=== PATIENT | female | born 1945 | race Caucasian/White ===

== ENCOUNTER → 2016-07-02 | Outpatient (CLI) | payer MEDICARE ==
[2016-05-04 11:00] VITALS: BP 128/62
[~2016-07-02] MED LIST: ACET500T68 PO; ALBU8.5H6 IH; ALPR1TAB2 PO; AMLO5TAB4 PO; ASPI325T4 PO; CA C1TAB62 PO; CITA10TA8 PO; DULO60CA6 PO; FLUT10.6 IH; FURO20TA3 PO; HYDR-2666 PO; HYDR-965 PO; IPRA3AMP IH; LEVO500T38 PO; LISI1TAB3 PO; PRED20TA PO; TIZA4CAP3 PO; TRAM50TA PO; TRAZ50TA15 PO
--- NOTE | 2016-07-02 21:24 | PAIN ---
DATE OF SERVICE: 07/02/2016 DIAGNOSES: Lumbar radiculopathy with lumbar degenerative disk disease and degenerative disk disease and lumbar spondylosis. HISTORY OF PRESENT ILLNESS: The patient is a 70-year-old female who returns for followup status post lumbar epidural steroid injections, most recently in January 2016. The patient managed with medication management as well with tramadol and Zanaflex, which she reports she is still doing very well with this, reports that she does have some pain in the back, but is much less than previously. The patient reports about 70-75% improvement overall. Initially was 90% after last injection, but is doing very well with her medication regimen, has been very stable with no side effects. The patient reports her pain at 2 on a scale of 10. It is worst is a dull ache in the low back into the bilateral lower extremities, more on the right than the left, but only worse with standing and walking and is still able to relieve this with sitting, this has been difficult for her in the past. Sitting now does relieve the pain. The patient reports she would like to wait on any further injections to where the pain might be worst and feels that she ____ from them. Again, the patient taking tramadol and Zanaflex, has had appropriate K-TRACS reporting today and appropriate urinalysis today. We will obtain urinalysis today as well as random screening time for her as well. The patient reports no new motor or sensory deficits, no new bowel or bladder incontinence or other complaints. PHYSICAL EXAMINATION: VITAL SIGNS: Today, the patient's blood pressure ____, pulse 88, respirations 18, temperature 98.1 degrees Fahrenheit, height is 63 inches. GENERAL: The patient is awake, alert, oriented, appropriate, very pleasant demeanor. HEENT: Head shows normocephalic, atraumatic. Extraocular movements are intact and symmetrical. Oral cavity, mucous membranes are moist and pink. Dentition is intact. NECK: Shows anterior throat supple without palpable lymphadenopathy noted. Swallow reflex is symmetrical. CHEST: Shows normal on inspection. Breath sounds are coarse and distant, but clear to auscultation bilaterally. The patient is wearing oxygen by 2 liters nasal cannula. HEART: Shows S1 and S2 clear. ABDOMEN: Soft, nontender, nondistended. No palpable organomegaly noted. No rebound or guarding demonstrated. BACK: Shows spine grossly midline, slight exaggeration in the thoracic kyphosis, but normal lumbar lordotic curvature. Lumbar paraspinous muscle shows some very mild tenderness to palpation, but only diffusely in the upper, middle and lower distribution of paraspinous muscles without significant atrophy, hypertrophy or radiation of pain. EXTREMITIES: The patient's lower extremities showed deep tendon reflexes 1+ in the patellar and tendo calcaneus tendons. Motor exam is strong with dorsiflexion and extension rated at 5/5 and equal. Options were discussed with the patient. At this time, the patient's old chart was reviewed as her current medication regimen updated. Current review of systems updated today as well. We will hold on further injections. We will refill the patient's tramadol 50 mg as well as Zanaflex at 4 mg with instructions, side effects to be aware have discussed the patient also. Again, we will have the urinalysis taken today as random screening. We will have the patient follow up in approximately 4 weeks or sooner for potential lumbar epidural steroid injection in the future as necessary. The patient was given instruction as well as side effects to be aware of with the medication and will follow up as scheduled. VICENTA CID MD DR: ALOK/marni JOB#: [id number] / [id number]
== END | disposition home or self-care (01) ==
LOC: PNCL 08:40
PROVIDERS: ATTEND Anesthesiology
DX: M51.16 Intervertebral disc disorders with radiculopathy, lumbar region (principal); M51.36 Other intervertebral disc degeneration, lumbar region; M47.896 Other spondylosis, lumbar region
CPT/HCPCS: G0463

== ENCOUNTER 2016-08-11 15:02 | Inpatient (IN) | payer MEDICARE ==
[~2016-08-11] VITALS: Ht 162.6 cm; Wt 45.5 kg
[2016-08-11] VITALS (9 sets, daily range): BP systolic 136–166; BP diastolic 74–98
[2016-08-11 15:26] LABS: BASO % 0 % (0-3); EOS % 3 % (0-3); HEMATOCRIT 30.7 % (36.0-47.0); HEMOGLOBIN 9.3 g/dL (12.0-15.5); LYMPH # 0.8 x10^3/uL (1.0-4.8); LYMPH % 14 % (24-48); MEAN CORPUSCULAR HEMOGLOBIN 30 pg (25-35); MEAN CORPUSCULAR HGB CONC 30 g/dL (31-37); MEAN CORPUSCULAR VOLUME 97 fL (79-100); MONO % 8 % (0-9); NEUT % 75 % (31-73); PLATELET COUNT 127 x10^3/uL (140-400); RED BLOOD COUNT 3.16 x10^6/uL (3.50-5.40); RED CELL DISTRIBUTION WIDTH 15.4 % (11.5-14.5); WHITE BLOOD COUNT 5.5 x10^3/uL (4.0-11.0)
--- NOTE | 2016-08-11 15:35 | RAD ---
AP portable chest radiograph 08/11/2016 Clinical History: Shortness of breath. An AP portable erect digital radiograph of the chest was obtained. Comparison study is dated 07/03/2016. The cardiac silhouette is normal in size. Atherosclerotic calcification of the thoracic aorta is seen. The thoracic aorta is mildly tortuous. Emphysematous changes are seen bilaterally. No acute pulmonary infiltrate is noted. No pneumothorax or pleural effusion is seen. The osseous structures are unchanged. Impression: No acute abnormality is seen.
[2016-08-11 15:41] LABS: CALCIUM 9.1 mg/dL (8.5-10.1); CREATININE 1.5 mg/dL (0.6-1.0); GFR 34.5; POTASSIUM 4.6 mmol/L (3.5-5.1)
[2016-08-11] MEDS ORDERED: methylPREDNISolone SOD SUCC PF 125 MG/2 ML VIAL. IV ONE (16:00)
[2016-08-11] MEDS ORDERED: IPRATRPIUM/ALBUTEROL 0.5/2.5MG 3 ML NEBU. NEB ONE (16:00)
[2016-08-11 16:05] LABS: OBC FLU VALID
[2016-08-11] MEDS ORDERED: FENTANYL PF 100 MCG/2 ML VIAL. ONE (16:22)
[2016-08-11] MEDS ORDERED: FENTANYL PF 100 MCG/2 ML VIAL. IV ONE (16:30)
[2016-08-11 16:31] LABS: BASE EXCESS COOX -3 mmol/L (-3-3); CARBON MONOXIDE 0.9 % (0.0-1.9); HCO3 COOX 24 mmol/L (21-28); METHEMOGLOBIN 0.3 % (0.0-1.9); OXYHEMOGLOBIN 88.4 %; PCO2 COOX 53 mmHg (35-46); PH COOX 7.27 (7.35-7.45); PO2 COOX 57 mmHg (65-108); SAT O2 COOX 90 % (92-99)
--- NOTE | 2016-08-11 16:36 | PHYS DOC ---
Past Medical History Past Medical History: Anxiety, COPD, Depression, Hypertension, Renal Disease Additional Past Medical Histor: back pain Past Surgical History: Hysterectomy Additional Past Surgical Histo: UNKNOWN Alcohol Use: None Drug Use: None Adult General Chief Complaint Chief Complaint: DYSPNEA/RESPIRATOY DISTRESS HPI HPI Patient is a 70 year old female who presents by EMS for dyspnea and left hip pain. She has not been wearing oxygen today and was feeling lightheaded. She had a fall without loss of consciousness and was not breathing well. EMS was called by family, who found her on the ground at home with no NC in place. She was very hypoxemic and altered. This did not improve with NC, so CPAP was placed. She had improvement in O2 sats and mentation with this. Left hip pain started after fall; achy, constant, worse with movement. She denies chest pain , cough, palpitation, LOC, headache, vision changes, back pain, numbness, tingling, weakness. Review of Systems Review of Systems Constitutional: Denies fever or chills [] Eyes: Denies change in visual acuity, redness, or eye pain [] HENT: Denies nasal congestion or sore throat [] Respiratory: Denies cough [] Cardiovascular: No additional information not addressed in HPI [] GI: Denies abdominal pain, nausea, vomiting, bloody stools or diarrhea [] : Denies dysuria or hematuria [] Musculoskeletal: Denies back pain [] Integument: Denies rash or skin lesions [] Neurologic: Denies headache, focal weakness or sensory changes [] Endocrine: Denies polyuria or polydipsia [] Current Medications Current Medications Current Medications Medications (Trade) Dose Ordered Sig/Chrissie Start Time Stop Time Status Last Admin Dose Admin Albuterol/ Ipratropium (Duoneb) 3 ml PRN Q4HRS PRN 08/11/16 17:30 Fentanyl Citrate (Fentanyl 2ml Vial) 100 mcg STK-MED ONCE 08/11/16 16:22 08/11/16 16:23 DC Methylprednisolone Sodium Succinate (Solu-Medrol 125mg Vial) 125 mg 1X ONCE 08/11/16 16:00 08/11/16 16:01 DC 08/11/16 16:07 125 MG Allergies Allergies Allergies Coded Allergies Type Severity Reaction Last Updated Verified amlodipine Adverse Reaction Intermediate Swelling 05/04/16 Yes Physical Exam Physical Exam Constitutional: Well developed, well nourished, no acute distress, non-toxic appearance. [] HENT: Normocephalic, atraumatic, bilateral external ears normal, oropharynx moist, no oral exudates, nose normal. [] Eyes: PERRLA, EOMI. [] Neck: Normal range of motion, no tenderness, supple, no stridor. [] Cardiovascular:Heart rate regular rhythm [] Lungs & Thorax: Diminished bilateral breath sounds; no wheezing or crackles [] Abdomen: Bowel sounds normal, soft, no tenderness. [] Skin: Warm, dry, no erythema, no rash. [] Back: No tenderness, no CVA tenderness. [] Extremities: LLE with no obvious deformity or discoloration; Tenderness about left lateral hip with no palpable or visual abnormality; Hip ROM not tested due to pain, knee rom not tested due to hip pain, ankle df/pf intact, toes df/pf intact; SILT arzate/sa/sp/dp/tib distributions; good dp and pt pulses equal bilaterally; bilateral 1+ LE edema Neurologic: Alert and oriented X 3, normal motor function, normal sensory function, no focal deficits noted. [] Psychologic: Affect normal, judgement normal, mood normal. [] Current Patient Data Vital Signs Vital Signs Date Time Temp Pulse Resp B/P Pulse Ox O2 Delivery O2 Flow Rate FiO2 08/11/16 16:26 18 98 BiPAP/CPAP 08/11/16 15:05 98.0 120 133/65 4 98.0 Lab Values Laboratory Tests Test 08/11/16 15:10 08/11/16 15:35 08/11/16 16:20 08/11/16 16:30 White Blood Count 5.5x10^3/uL (4.0-11.0) Red Blood Count 3.16x10^6/uL (3.50-5.40) L Hemoglobin 9.3g/dL (12.0-15.5) L Hematocrit 30.7% (36.0-47.0) L Mean Corpuscular Volume 97fL (79-100) Mean Corpuscular Hemoglobin 30pg (25-35) Mean Corpuscular Hemoglobin Concent 30g/dL (31-37) L Red Cell Distribution Width 15.4% (11.5-14.5) H Platelet Count 127x10^3/uL (140-400) L Neutrophils (%) (Auto) 75% (31-73) H Lymphocytes (%) (Auto) 14% (24-48) L Monocytes (%) (Auto) 8% (0-9) Eosinophils (%) (Auto) 3% (0-3) Basophils (%) (Auto) 0% (0-3) Neutrophils # (Auto) 4.1x10^3uL (1.8-7.7) Lymphocytes # (Auto) 0.8x10^3/uL (1.0-4.8) L Monocytes # (Auto) 0.4x10^3/uL (0.0-1.1) Eosinophils # (Auto) 0.2x10^3/uL (0.0-0.7) Basophils # (Auto) 0.0x10^3/uL (0.0-0.2) Sodium Level 143mmol/L (136-145) Potassium Level 4.6mmol/L (3.5-5.1) Chloride Level 106mmol/L (98-107) Carbon Dioxide Level 28mmol/L (21-32) Anion Gap 9 (6-14) Blood Urea Nitrogen 24mg/dL (7-20) H Creatinine 1.5mg/dL (0.6-1.0) H Estimated GFR (Cockcroft-Gault) 34.5 Glucose Level 113mg/dL (70-99) H Calcium Level 9.1mg/dL (8.5-10.1) Troponin I Quantitative < 0.017ng/mL (0.000-0.055) MO-Rsw-A-Type Natriuretic Peptide 539pg/mL (0-124) H Influenza Type A Antigen Negative (NEGATIVE) Influenza Type B Antigen Negative (NEGATIVE) O2 Saturation 90% (92-99) L Arterial Blood pH 7.27 (7.35-7.45) L Arterial Blood pCO2 at Patient Temp 53mmHg (35-46) H Arterial Blood pO2 at Patient Temp 57mmHg (65-108) L Arterial Blood HCO3 24mmol/L (21-28) Arterial Blood Base Excess -3mmol/L (-3-3) Oxyhemoglobin 88.4% Methemoglobin 0.3% (0.0-1.9) Carbon Monoxide, Quantitative 0.9% (0.0-1.9) FiO2 40 Urine Collection Type U cath Urine Color Yellow Urine Clarity Clear Urine pH 5.5 Urine Specific [place] 1.015 Urine Protein Negativemg/dL (NEG-TRACE) Urine Glucose (UA) Negativemg/dL (NEG) Urine Ketones (Stick) Negativemg/dL (NEG) Urine Blood Negative (NEG) Urine Nitrite Negative (NEG) Urine Bilirubin Negative (NEG) Urine Urobilinogen Dipstick 0.2mg/dL (0.2 mg/dL) Urine Leukocyte Esterase Negative (NEG) Urine RBC 0/HPF (0-2) Urine WBC 0/HPF (0-4) Urine Squamous Epithelial Cells None/LPF Urine Transitional Epithelial Cells Occ/LPF Urine Bacteria 0/HPF (0-FEW) Urine Hyaline Casts Moderate/HPF Urine Mucus Mod/LPF Laboratory Tests 08/11/16 15:10 Laboratory Tests 08/11/16 15:10 EKG EKG EKG as interpreted by me as sinus tachycardia, rate 124, no ST-T changes, normal intervals, no ectopy Radiology/Procedures Radiology/Procedures Chest xray as interpreted by me with no acute cardiopulmonary disease process Course & Med Decision Making Course & Med Decision Making Pertinent Labs and Imaging studies reviewed. (See chart for details) Laboratory evaluation is unremarkable. ABG shows respiratory acidosis. She has required BiPAP to maintain O2 sats. Has proximal femur fracture as above. Will admit for acute on chronic respiratory failure as well as femur fracture. Consultations placed to pulmonology and orthopedics. Discussed case with Dr. Lemons, on-call for Dr. Ochoa. Vivek Disclaimer Vivek Disclaimer This electronic medical record was generated, in whole or in part, using a voice recognition dictation system. Critical Care Time Critical care time was 60 minutes exclusive of procedures. Departure Departure Impression: Primary Impression: Acute and chronic respiratory failure ([id number]) Additional Impressions: COPD exacerbation Closed left femoral fracture Disposition: ADMITTED INPATIENT Condition: CRITICAL Referrals: JAMIN OCHOA MD (PCP) Problem Qualifiers Primary Impression: Acute and chronic respiratory failure ([id number]) Respiratory failure complication: hypoxia and hypercapnia Qualified Code: J96.21 - Acute and chronic respiratory failure with hypoxia Additional Impressions: Closed left femoral fracture Encounter type: initial encounter Femur location: neck Qualified Code: S72.002A - Fracture of unspecified part of neck of left femur, initial encounter for closed fracture Noa HEIN MD Aug 11, 2016 16:36
[2016-08-11 16:37] LABS: FIO2 COOX 40
[2016-08-11 16:41] LABS: BILIRUBIN,URINE NEGATIVE (NEG); GLUCOSE,URINE NEGATIVE (NEG); NITRITE,URINE NEGATIVE (NEG); PH,URINE 5.5; PROTEIN,URINE NEGATIVE (NEG-TRACE); UROBILINOGEN,URINE 0.2 mg/dL (0.2 mg/dL)
[2016-08-11 16:52] LABS: BACTERIA,URINE 0 /HPF (0-FEW); RBC,URINE 0 /HPF (0-2); WBC,URINE 0 /HPF (0-4)
--- NOTE | 2016-08-11 18:36 | ACF ---
Admission Forms Criteria RESPIRATORY FAILURE [facility] Clinical Indications for Admission to Inpatient Care (Place 'X' for any and all applicable criteria): Hospital admission is needed for appropriate care of the patient because of acute respiratory failure or insufficiency as indicated by ANY ONE of the following(1)(2)(3)(4)(5)(6)(7)(8): [X]I. Mechanical ventilation needed (acute invasive or noninvasive) [X]II. Severe ventilation deficit as indicated by ANY ONE of the following (9) [X]a) Respiratory acidosis (pH less than 7.32 and partial pressure of carbon dioxide greater than 40 mm Hg (5.3 kPa)) [X]b) Partial pressure of carbon dioxide greater than 44 mm Hg (5.9 kPa ) (new) [ ]c) Airflow measurements less than 25% of predicted (eg, peak expiratory flow rate less than 100 L/minute) [ ]d) Forced vital capacity less than 15 mL/kg of ideal body weight, or 50% decrease in vital capacity from baseline [ ]III. Noncardiac pulmonary edema not resolving with rapid emergency treatment (8) [ ]IV. Severe respiratory distress as indicated by ANY ONE of the following: [ ]a) Severe tachypnea (respiratory rate greater than 30, greater than 45 for 6-month-old, greater than 60 for ) [ ]b) Severe hypoxemia (partial pressure of oxygen less than 50 mm Hg ( 6.7 kPa) on greater than 50% oxygen or partial pressure of oxygen to FIO2 ratio less than 200) [ ]c) Mental status deterioration from respiratory disease [ ]V. Airway obstruction or inadequate protection [A](10)(11) The original [facility] content created by [facility] has been revised. The portions of the content which have been revised are identified through the use of italic text or in bold, and [facility] has neither reviewed nor approved the modified material. All other unmodified content is copyright [facility]. Please see references footnoted in the original [facility] edition 2016 Admission Criteria Met?: Yes MIRANDA SQUIRES Aug 11, 2016 18:36
[2016-08-11] MEDS ORDERED: IV NORMAL SALINE 500ML BAG 500 ML IV ONE (18:45)
[2016-08-11] MEDS: LORAZEPAM 2 MG/ML VIAL IV PRN (21:01)
[2016-08-11] MEDS: FENTANYL PF 100 MCG/2 ML VIAL. IV PRN (22:01)
[2016-08-12] VITALS (25 sets, daily range): BP systolic 124–198; BP diastolic 71–105
[2016-08-12] MEDS: FENTANYL PF 100 MCG/2 ML VIAL. IV PRN ×6 (00:27→23:03)
[2016-08-12] MEDS: LORAZEPAM 2 MG/ML VIAL IV PRN (01:31)
[2016-08-12 05:51] LABS: BASO % 0 % (0-3); EOS % 0 % (0-3); HEMATOCRIT 27.3 % (36.0-47.0); HEMOGLOBIN 8.5 g/dL (12.0-15.5); LYMPH # 0.3 x10^3/uL (1.0-4.8); LYMPH % 5 % (24-48); MEAN CORPUSCULAR HEMOGLOBIN 29 pg (25-35); MEAN CORPUSCULAR HGB CONC 31 g/dL (31-37); MEAN CORPUSCULAR VOLUME 94 fL (79-100); MONO % 4 % (0-9); NEUT % 91 % (31-73); PLATELET COUNT 113 x10^3/uL (140-400); RED BLOOD COUNT 2.91 x10^6/uL (3.50-5.40); RED CELL DISTRIBUTION WIDTH 14.7 % (11.5-14.5); WHITE BLOOD COUNT 5.1 x10^3/uL (4.0-11.0)
[2016-08-12 05:55] LABS: CALCIUM 8.8 mg/dL (8.5-10.1); GFR 55.1; POTASSIUM 4.9 mmol/L (3.5-5.1)
--- NOTE | 2016-08-12 06:25 | EKG ---
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
[2016-08-12 07:31] LABS: HCO3 ABG 25 mmol/L (21-28); PCO2 ABG 52 mmHg (35-46); PH ABG 7.31 (7.35-7.45); PO2 ABG 115 mmHg (65-108); SAT O2 ABG 98 % (92-99)
[2016-08-12 07:35] LABS: FIO2 ABG 40
--- NOTE | 2016-08-12 08:53 | RAD ---
AP pelvis to include AP and lateral radiographs of the left hip 08/11/2016 Clinical history: Left hip pain post fall. An AP portable digital radiograph of the pelvis to include both hips was obtained. Portable AP and lateral digital radiographs of the left hip were obtained. Comparison study is dated 11/07/2012. There is diffuse osteopenia of the visualized bony structures. No pelvic bone fracture is seen. An acute slightly comminuted oblique subcapital fracture of the left femoral neck is seen. Very mild anterior displacement of the major distal fracture fragment is noted. The right hip is intact. Degenerative changes are seen involving the lower lumbar spine and both hips. Impression: Acute subcapital fracture of the left femoral neck.
--- NOTE | 2016-08-12 08:57 | PDOC ---
Provider Note Provider Note [id number] RONY JONES MD Aug 12, 2016 08:57
[2016-08-12 09:23] LABS: PLT ESTIMATE ADEQUATE (ADEQUATE)
--- NOTE | 2016-08-12 09:29 | PDOC ---
Provider Note Provider Note dictated IVANIA MARIN MD Aug 12, 2016 09:29
--- NOTE | 2016-08-12 09:46 | HP ---
ADMIT DATE: 08/11/2016 CHIEF COMPLAINT: Fall. HISTORY OF PRESENT ILLNESS: A 70-year-old white female patient of Dr. Ochoa with end-stage COPD, apparently had a fall and has a fractured left femoral neck. She is confused, on BiPAP now and nonverbal. PAST MEDICAL HISTORY: Well documented in the old record. ALLERGIES: TO AMLODIPINE. MEDICATIONS: She is on oxygen at home. SOCIAL HISTORY: Apparently, her is demented and lives at home with family. Nonsmoker. FAMILY HISTORY: Unremarkable. REVIEW OF SYSTEMS: No other problems. OBJECTIVE: ENT: BiPAP in place. ____ appeared to be normal. NECK: No JVD or masses. LUNGS: Decreased breath sounds. No wheezes. CARDIOVASCULAR: Tachycardia, rate 130. No murmurs heard. ABDOMEN: Soft, benign and nontender. EXTREMITIES: Left leg is mildly shortened and externally rotated. Pulses are diminished, but present. SKIN: Turgor decreased. NEUROLOGIC: Moves all extremities except the left leg. She is disoriented, combative, nonverbal. ASSESSMENT: End-stage chronic obstructive pulmonary disease and left hip fracture. Tachycardia is likely secondary to pain and agitation. PLAN: Appears to be very high risk patient for surgery, but no options at this point. Appropriate consultations obtained. Family not available at this time to discuss. RONY JONES MD DR: RUBEN/marni JOB#: [id number] / [id number]
[2016-08-12] MEDS ORDERED: IV NORMAL SALINE 250ML 250 ML IV ONE (10:00)
--- NOTE | 2016-08-12 10:01 | CONS ---
DATE OF CONSULTATION: ATTENDING PHYSICIAN: Dr. Kasi Lemons. REASON FOR CONSULTATION: Respiratory failure. HISTORY OF PRESENT ILLNESS: The patient is very well known to us. She is a 70-year-old female who has history of chronic respiratory failure on home oxygen at 4 liters and also a Trilogy vent at nighttime. She has frequent hospitalizations in the past few months. The patient was brought into [facility] with dyspnea and also altered mental status and also having left hip pain. She was noted to be without her oxygen. She did have a fall without any loss of consciousness. When EMS was called by the family, they found her on the ground at home with no nasal cannula. She was hypoxic and had altered mental status. She was placed on CPAP, her saturation did improve. The patient denies any chest pain, cough or loss of consciousness per ER records. I have reviewed her initial ABGs which showed a pH of 7.27, pCO2 of ____ and a pO2 of 57 on 40% FiO2. She has been placed on BiPAP. The latest ABG showed a pH of 7.31, pCO2 of 52 and a pO2 of 115 on 40% FiO2. She is restless while on the BiPAP. The imaging studies revealed that her chest x-ray showing no acute abnormality. There were emphysematous changes. She had a hip fracture, which showed an acute subcapital fracture of the left femoral neck. It is my understanding that surgery has been planned for later this afternoon. Consultation requested for further evaluation and management. PAST MEDICAL HISTORY: History of severe COPD, history of chronic respiratory failure on home oxygen 4 liters and Trilogy vent at night, history of hypertension, history of anxiety and back pain. PAST SURGICAL HISTORY: Including hysterectomy. ALLERGIES: AMLODIPINE. CURRENT MEDICATIONS: Reviewed including p.r.n. lorazepam, DuoNebs and p.r.n. fentanyl. REVIEW OF SYSTEMS: Cannot be obtained from the patient due to her altered mental status. She nods yes and no to questions. SOCIAL HISTORY: Has a long history of tobacco use. FAMILY HISTORY: Unable to obtain from the patient. Please review my previous records. PHYSICAL EXAMINATION: VITAL SIGNS: Blood pressure as high as 178 systolic, T-max of 99.3, pulse ox is 100%. HEENT: Sclerae nonicteric. NECK: Supple. LUNGS: Diminished breath sounds with no wheezing. CARDIOVASCULAR: Regular rate and tachycardia. ABDOMEN: Soft, nontender. There is some mild tenderness to palpation in the left hip. EXTREMITIES: With no pitting edema. LABORATORY DATA: Reviewed. Influenza is negative. Chemistries with a BUN of 24 and a creatinine of 1.5 initially and now his creatinine is down to 1.0. White cell count 5.1, hemoglobin 8.5 and platelets are 113. ABGs as discussed in my history of present illness. IMPRESSION: 1. Acute on chronic hypercapnic respiratory failure secondary to acute exacerbation of chronic obstructive pulmonary disease and effect of narcotics. 2. History of severe oxygen dependent chronic obstructive airway disease. She is normally on 4 liters during the day and Trilogy vent at night. 3. Sinus tachycardia, most likely triggered by pain, but I suspect a component of volume depletion as well. She would benefit from IV fluids. 4. Left hip fracture. She is scheduled to have surgery later this afternoon. RECOMMENDATIONS: 1. At this point, I have reduced her amount of oxygen to minimize hyperoxia induced hypercapnia I will keep the same IPAP and, respiratory rate and follow ABGs and make necessary changes. 2. Minimized the use of narcotics and benzodiazepines. 3. Continue with DuoNeb. 4. Discussed with RN that she said at risk for ventilator dependence post-surgery. We will do our best to extubate her post-surgery if she does not come out of the ventilator after receiving anesthesia, will follow the weaning protocol. 5. SCDs for Deep venous thrombosis prophylaxis. 6. Further recommendations to follow after surgery. Critical care time 39 minutes, discussed with RN and anesthesia IVANIA MARIN MD DR: KATHIA/marni JOB#: [id number] / [id number] RJ
[2016-08-12] MEDS ORDERED: IV NORMAL SALINE 500ML BAG 500 ML IV ONE (10:02)
[2016-08-12] MEDS ORDERED: DEXAMETHASONE SOD PHOS 20 MG/5 ML VIAL. ONE (10:16)
[2016-08-12] MEDS ORDERED: SUCCINYLCHOLINE 200 MG/10 ML VIAL. ONE (10:16)
[2016-08-12] MEDS ORDERED: PROPOFOL 20 ML IV ONE (10:16)
[2016-08-12] MEDS ORDERED: ONDANSETRON PF 4 MG/2 ML VIAL. ONE (10:16)
[2016-08-12] MEDS ORDERED: LIDOCAINE 2% 100 MG/5 ML DISP.SYRIN. ONE (10:16)
[2016-08-12] MEDS ORDERED: CEFAZOLIN 1GM IVPB FOR OMNI 50 ML IV ONE (12:18)
[2016-08-12] MEDS ORDERED: PHENYLEPHRINE in 0.9% NACL PF 1 MG/10 ML DISP.SYRIN. IV ONE (12:18)
[2016-08-12] MEDS ORDERED: SEVOFLURANE 61 TO 120 MINUTES. IH ONE (13:22)
[2016-08-12] MEDS ORDERED: FENTANYL PF 100 MCG/2 ML VIAL. ONE (13:22)
[2016-08-12] MEDS ORDERED: IV RINGERS,LACTATED 1000ML 1,000 ML IV SCH (14:23)
[2016-08-12] MEDS ORDERED: MORPHINE SULFATE 2 MG/ML DISP.SYRIN. IV PRN (14:30)
[2016-08-12] MEDS ORDERED: PROCHLORPERAZINE 10 MG/2 ML VIAL. IV PRN (14:30)
[2016-08-12] MEDS ORDERED: LIDOCAINE 1% 1 ML SYRINGE. ID PRN (14:30)
[2016-08-12] MEDS ORDERED: FENTANYL PF 100 MCG/2 ML VIAL. IV PRN ×2 (14:30)
[2016-08-12] MEDS ORDERED: HYDROMORPHONE 2 MG/ML VIAL. IV PRN (14:30)
[2016-08-12] MEDS ORDERED: TRAZ50TA15 PO (15:26)
[2016-08-12] MEDS ORDERED: IPRA4AER IH (15:26)
[2016-08-12] MEDS ORDERED: VALS1TAB27 PO (15:26)
[2016-08-12] MEDS: LOSARTAN POTASSIUM 50 MG TABLET. PO SCH (16:39)
[2016-08-12] MEDS: HYDROCHLOROTHIAZIDE 12.5 MG CAPSULE. PO SCH (16:39)
--- NOTE | 2016-08-12 19:56 | PDOC ---
BRIEF OPERATIVE NOTE Date: Aug 12, 2016 Pre-Op Diagnosis left femoral neck fx Post-Op Diagnosis same Procedure Performed closed reduction percutaneous screw fixation left femoral neck fx Surgeon Jeronimo Anesthesia Type: General Blood Loss 150cc Findings above Complications none KACIE FUENTES MD Aug 12, 2016 19:56
[2016-08-13] VITALS (12 sets, daily range): BP systolic 151–171; BP diastolic 82–115
--- NOTE | 2016-08-13 00:41 | OP ---
DATE OF SURGERY: 08/12/2016 PREOPERATIVE DIAGNOSIS: Minimally displaced left femoral neck fracture. POSTOPERATIVE DIAGNOSIS: Minimally displaced left femoral neck fracture. PROCEDURE: Closed reduction percutaneous screw placement x 3, left femoral neck fracture. SURGEON: Dr. Decker. ANESTHESIA: General. ESTIMATED BLOOD LOSS: 150 mL. COMPLICATIONS: None. OPERATIVE INDICATIONS: The patient is an elderly female, who had end-stage COPD, fell at home, sustaining the above, minimally displaced femoral neck fracture. I had talked with the patient and to her confused and nonverbal as well as one of her son, who is her power of [place] attorney, regarding treatment options of the fracture and the risk of surgery along with severe COPD, but the risk of immobility and nonhealing of the fracture with nonoperative treatment and informed consent was obtained to proceed with surgical evaluation and treatment. I emphasized and the possibility of medical or other anesthetic complications and lesser possibility of infection. The possibility under any circumstances of nonhealing or fracture collapsed may require additional procedures. The area does not heal despite adequate fixation. All her questions were answered and agreed to proceed with surgical evaluation and treatment. OPERATIVE TECHNIQUE: The patient was identified, procedure verified, patient placed in the supine position on the Taylor fracture table. After adequate amounts of general endotracheal anesthesia were administered, risks and the left hip was placed in mild traction and femoral neck fracture reduced under multiple fluoroscopic views. Next, the left hip was prepped and draped in standard sterile fashion. Small incision was made of localized over the lateral femur and guidewires were placed under fluoroscopic guidance to achieve. Good fixation inside the femoral head with adequate spread and a total of three 7.0 cannulated screws from [employer], were advanced across the fracture site and long threaded 2 that were 80 mm in length, one of the 85 mm in length based on the measurement of the cortex, excellent bony bite was obtained and therefore fixation of the fracture, which was examined under multiple fluoroscopic guidance for reduction as well as hardware length. Thorough irrigation carried out with normal saline solution. Fascia was closed with #1 Vicryl suture, subcutaneous closure with buried Vicryl with suture, skin closure with rosy. Sterile dressings were applied. The patient was extubated, returned to recovery room in stable condition having tolerated the procedure well. KACIE DECKER MD DR: CHAI/marni JOB#: [id number] / [id number] JAMIN Mandujano MD
[2016-08-13] MEDS: FENTANYL PF 100 MCG/2 ML VIAL. IV PRN ×3 (02:54→14:31)
[2016-08-13] MEDS ORDERED: ALPR1TAB6 (07:15)
[2016-08-13] MEDS ORDERED: TIZA4TAB (07:15)
[2016-08-13] MEDS ORDERED: TRAM50TA (07:15)
[2016-08-13] MEDS ORDERED: ALBU8.5H5 (07:15)
[2016-08-13] MEDS ORDERED: LISI1TAB3 (07:15)
[2016-08-13] MEDS ORDERED: CITA10TA4 (07:15)
[2016-08-13 08:06] LABS: HCO3 ABG 28 mmol/L (21-28); PCO2 ABG 47 mmHg (35-46); PH ABG 7.39 (7.35-7.45); PO2 ABG 68 mmHg (65-108); SAT O2 ABG 94 % (92-99)
[2016-08-13] MEDS: IPRATRPIUM/ALBUTEROL 0.5/2.5MG 3 ML NEBU. NEB PRN ×2 (08:31→21:21)
[2016-08-13 09:13] LABS: FIO2 ABG 30
[2016-08-13] MEDS: HYDROCHLOROTHIAZIDE 12.5 MG CAPSULE. PO SCH (09:23)
[2016-08-13] MEDS: LOSARTAN POTASSIUM 50 MG TABLET. PO SCH (09:23)
--- NOTE | 2016-08-13 09:58 | PDOC ---
PROGRESS NOTES Subjective Subjective Pt asleep, easily aroused. Confusion noted this am. Objective Objective Pt asleep, easily aroused. Confused and not oriented. Pt on BiPaP. Lungs with loose rhonchi and expiratory wheeze present. Heart with tachy, regular rhythm. No murmurs. Vital Signs Date Time Temp Pulse Resp B/P Pulse Ox O2 Delivery O2 Flow Rate FiO2 08/13/16 09:23 124 159/91 08/13/16 08:40 97 Nasal Cannula 4.0 08/13/16 07:00 23 08/13/16 04:00 98.8 98.8 Intake and Output 08/13/16 07:00 Intake Total 500 ml Output Total 3355 ml Balance -2855 ml IV Total 500 ml Output Urine Total 3355 ml # Bowel Movements 3 Assessment Assessment Problems Medical Problems: (1) Acute and chronic respiratory failure ([id number]) Status: Acute (2) Closed left femoral fracture Status: Acute (3) COPD exacerbation Status: Acute Plan Plan of Care 1. Left hip fx -secondary to mechanical fall on 08/11/16 -Ortho consulting -s/p closed reduction with percutaneous screw fixation on 08/12/16 -Hgb 8.5 this am -recheck in am 2. COPD with acute exacerbation -prior to admission, pt on 4L of O2 and Trilogy at -Pulmonology consulting -Pt now on BiPaP 3. Encephalopathy -probable secondary to narcotic medication for pain control and hypercapnia Pt lives at home with son and demented . Pt will require SNF upon Dc. SW consulted to begin screening process. Comment Review of Relevant I have reviewed the following items pako (where applicable) has been applied. Labs Laboratory Tests Test 08/11/16 15:10 08/11/16 15:35 08/11/16 16:20 08/11/16 16:30 White Blood Count 5.5x10^3/uL (4.0-11.0) Red Blood Count 3.16x10^6/uL (3.50-5.40) Hemoglobin 9.3g/dL (12.0-15.5) Hematocrit 30.7% (36.0-47.0) Mean Corpuscular Volume 97fL (79-100) Mean Corpuscular Hemoglobin 30pg (25-35) Mean Corpuscular Hemoglobin Concent 30g/dL (31-37) Red Cell Distribution Width 15.4% (11.5-14.5) Platelet Count 127x10^3/uL (140-400) Neutrophils (%) (Auto) 75% (31-73) Lymphocytes (%) (Auto) 14% (24-48) Monocytes (%) (Auto) 8% (0-9) Eosinophils (%) (Auto) 3% (0-3) Basophils (%) (Auto) 0% (0-3) Neutrophils # (Auto) 4.1x10^3uL (1.8-7.7) Lymphocytes # (Auto) 0.8x10^3/uL (1.0-4.8) Monocytes # (Auto) 0.4x10^3/uL (0.0-1.1) Eosinophils # (Auto) 0.2x10^3/uL (0.0-0.7) Basophils # (Auto) 0.0x10^3/uL (0.0-0.2) Sodium Level 143mmol/L (136-145) Potassium Level 4.6mmol/L (3.5-5.1) Chloride Level 106mmol/L (98-107) Carbon Dioxide Level 28mmol/L (21-32) Anion Gap 9 (6-14) Blood Urea Nitrogen 24mg/dL (7-20) Creatinine 1.5mg/dL (0.6-1.0) Estimated GFR (Cockcroft-Gault) 34.5 Glucose Level 113mg/dL (70-99) Calcium Level 9.1mg/dL (8.5-10.1) Troponin I Quantitative < 0.017ng/mL (0.000-0.055) MI-Mve-V-Type Natriuretic Peptide 539pg/mL (0-124) Influenza Type A Antigen Negative (NEGATIVE) Influenza Type B Antigen Negative (NEGATIVE) O2 Saturation 90% (92-99) Arterial Blood pH 7.27 (7.35-7.45) Arterial Blood pCO2 at Patient Temp 53mmHg (35-46) Arterial Blood pO2 at Patient Temp 57mmHg (65-108) Arterial Blood HCO3 24mmol/L (21-28) Arterial Blood Base Excess -3mmol/L (-3-3) Oxyhemoglobin 88.4% Methemoglobin 0.3% (0.0-1.9) Carbon Monoxide, Quantitative 0.9% (0.0-1.9) FiO2 40 Urine Collection Type U cath Urine Color Yellow Urine Clarity Clear Urine pH 5.5 Urine Specific [place] 1.015 Urine Protein Negativemg/dL (NEG-TRACE) Urine Glucose (UA) Negativemg/dL (NEG) Urine Ketones (Stick) Negativemg/dL (NEG) Urine Blood Negative (NEG) Urine Nitrite Negative (NEG) Urine Bilirubin Negative (NEG) Urine Urobilinogen Dipstick 0.2mg/dL (0.2 mg/dL) Urine Leukocyte Esterase Negative (NEG) Urine RBC 0/HPF (0-2) Urine WBC 0/HPF (0-4) Urine Squamous Epithelial Cells None/LPF Urine Transitional Epithelial Cells Occ/LPF Urine Bacteria 0/HPF (0-FEW) Urine Hyaline Casts Moderate/HPF Urine Mucus Mod/LPF Test 08/11/16 19:00 08/12/16 04:40 08/12/16 06:00 08/12/16 07:15 Nasal Screen MRSA (PCR) Negative (Negative) Sodium Level 143mmol/L (136-145) Potassium Level 4.9mmol/L (3.5-5.1) Chloride Level 106mmol/L (98-107) Carbon Dioxide Level 26mmol/L (21-32) Anion Gap 11 (6-14) Blood Urea Nitrogen 27mg/dL (7-20) Creatinine 1.0mg/dL (0.6-1.0) Estimated GFR (Cockcroft-Gault) 55.1 Glucose Level 97mg/dL (70-99) Calcium Level 8.8mg/dL (8.5-10.1) White Blood Count 5.1x10^3/uL (4.0-11.0) Red Blood Count 2.91x10^6/uL (3.50-5.40) Hemoglobin 8.5g/dL (12.0-15.5) Hematocrit 27.3% (36.0-47.0) Mean Corpuscular Volume 94fL (79-100) Mean Corpuscular Hemoglobin 29pg (25-35) Mean Corpuscular Hemoglobin Concent 31g/dL (31-37) Red Cell Distribution Width 14.7% (11.5-14.5) Platelet Count 113x10^3/uL (140-400) Neutrophils (%) (Auto) 91% (31-73) Lymphocytes (%) (Auto) 5% (24-48) Monocytes (%) (Auto) 4% (0-9) Eosinophils (%) (Auto) 0% (0-3) Basophils (%) (Auto) 0% (0-3) Neutrophils # (Auto) 4.7x10^3uL (1.8-7.7) Lymphocytes # (Auto) 0.3x10^3/uL (1.0-4.8) Monocytes # (Auto) 0.2x10^3/uL (0.0-1.1) Eosinophils # (Auto) 0.0x10^3/uL (0.0-0.7) Basophils # (Auto) 0.0x10^3/uL (0.0-0.2) Segmented Neutrophils % 94% (35-66) Band Neutrophils % 1% (0-9) Lymphocytes % 5% (24-48) Platelet Estimate Adequate (ADEQUATE) Platelet Clumps, EDTA Present O2 Saturation 98% (92-99) Arterial Blood pH 7.31 (7.35-7.45) Arterial Blood pCO2 at Patient Temp 52mmHg (35-46) Arterial Blood pO2 at Patient Temp 115mmHg (65-108) Arterial Blood HCO3 25mmol/L (21-28) Arterial Blood Base Excess -1mmol/L (-3-3) FiO2 40 Test 08/13/16 08:00 O2 Saturation 94% (92-99) Arterial Blood pH 7.39 (7.35-7.45) Arterial Blood pCO2 at Patient Temp 47mmHg (35-46) Arterial Blood pO2 at Patient Temp 68mmHg (65-108) Arterial Blood HCO3 28mmol/L (21-28) Arterial Blood Base Excess 2mmol/L (-3-3) FiO2 30 Laboratory Tests Test 08/13/16 08:00 O2 Saturation 94% (92-99) Arterial Blood pH 7.39 (7.35-7.45) Arterial Blood pCO2 at Patient Temp 47mmHg (35-46) Arterial Blood pO2 at Patient Temp 68mmHg (65-108) Arterial Blood HCO3 28mmol/L (21-28) Arterial Blood Base Excess 2mmol/L (-3-3) FiO2 30 Microbiology 08/11/16 Blood Culture - Preliminary, Resulted NO GROWTH AFTER 1 DAY Medications Current Medications Albuterol/ Ipratropium (Duoneb) 3 ml 1X ONCE NEB Last administered on 16:34; Start 08/11/16 at 16:00; Stop 08/11/16 at 16:01; Status DC Methylprednisolone Sodium Succinate (Solu-Medrol 125mg Vial) 125 mg 1X ONCE IV Last administered on 08/11/16 16:07; Start 08/11/16 at 16:00; Stop 08/11/16 at 16:01; Status DC Fentanyl Citrate (Fentanyl 2ml Vial) 25 mcg 1X ONCE IV Last administered on 16:26; Start 08/11/16 at 16:30; Stop 08/11/16 at 16:31; Status DC Fentanyl Citrate (Fentanyl 2ml Vial) 100 mcg STK-MED ONCE .ROUTE ; Start at 16:22; Stop 08/11/16 at 16:23; Status DC Albuterol/ Ipratropium 3 ml 3 ml PRN Q4HRS PRN NEB dysnea Last administered on 08/13/16 08:31; Start 08/11/16 at 17:30 Potassium Chloride/Sodium Chloride (KCl 20 Meq-NS 1,000 ml Iv Soln) 1,000 ml @ 100 mls/hr 1X ONCE IV Last administered on 08/11/16 19:41; Start 08/11/16 at 18 :00; Stop 08/12/16 at 03:59; Status DC Fentanyl Citrate 25 mcg 25 mcg PRN Q2HR PRN IV PAIN Last administered on 02:54; Start 08/11/16 at 18:30 Sodium Chloride (Iv Sodium Chloride 0.9% 500ml Bag) 500 ml @ 500 mls/hr 1X ONCE IV Last administered on 08/11/16 18:35; Start 08/11/16 at 18:45; Stop at 19:44; Status DC Lorazepam 0.5 mg 0.5 mg PRN Q4HRS PRN IV ANXIETY / AGITATION Last administered on 08/12/16 01:31; Start 08/11/16 at 20:45 Sodium Chloride 250 ml @ 250 mls/hr 1X ONCE IV ; Start 08/12/16 at 10:00; Stop 08/12/16 at 10:02; Status DC Sodium Chloride (Iv Sodium Chloride 0.9% 500ml Bag) 500 ml @ 500 mls/hr 1X ONCE IV Last administered on 08/12/16t 10:04; Start 08/12/16 at 10:02; Stop at 11:01; Status DC Dexamethasone Sodium Phosphate (Decadron) 20 mg STK-MED ONCE .ROUTE ; Start 08/12 at 10:16; Stop 08/12/16 at 10:17; Status DC Ondansetron HCl 4 mg 4 mg STK-MED ONCE .ROUTE ; Start 08/12/16 at 10:16; Stop 08/12/16 at 10:17; Status DC Propofol (Diprivan) 20 ml @ As Directed STK-MED ONCE IV ; Start 08/12/16 at 10:16 ; Stop 08/12/16 at 10:17; Status DC Lidocaine HCl 100 mg STK-MED ONCE .ROUTE ; Start 08/12/16 at 10:16; Stop 08/12/16 at 10:17; Status DC Succinylcholine Chloride 200 mg 200 mg STK-MED ONCE .ROUTE ; Start 08/12/16 at 10 :16; Stop 08/12/16 at 10:17; Status DC Cefazolin Sodium (Ancef 1gm Ivpb For Omni) 50 ml @ As Directed STK-MED ONCE IV ; Start 08/12/16 at 12:18; Stop 08/12/16 at 12:19; Status DC Phenylephrine HCl 1 mg STK-MED ONCE IV ; Start 08/12/16 at 12:18; Stop 08/12/16 at 12:19; Status DC Sevoflurane (Ultane) 60 ml STK-MED ONCE IH ; Start 08/12/16 at 13:22; Stop at 13:23; Status DC Fentanyl Citrate (Fentanyl 2ml Vial) 100 mcg STK-MED ONCE .ROUTE ; Start at 13:22; Stop 08/12/16 at 13:23; Status DC Fentanyl Citrate (Fentanyl 2ml Vial) 25 mcg PRN Q5MIN PRN IV MILD PAIN; Start 08/12/16 at 14:30; Stop 08/13/16 at 14:29 Fentanyl Citrate (Fentanyl 2ml Vial) 50 mcg PRN Q5MIN PRN IV MODERATE PAIN; Start 08/12/16 at 14:30; Stop 08/13/16 at 14:29 Morphine Sulfate 1 mg 1 mg PRN Q10MIN PRN IV SEVERE PAIN; Start 08/12/16 at 14: 30; Stop 08/13/16 at 14:29 Lactated Ringer's (Iv Lactated Ringers) 1,000 ml @ 0 mls/hr Q0M IV Last administered on 08/12/16 14:35; Start 08/12/16 at 14:23; Stop 08/13/16 at 02:22; Status DC Lidocaine HCl 2 ml 1X PRN PRN ID IV START; Start 08/12/16 at 14:30; Stop at 14:29 Hydromorphone HCl (Dilaudid) 0.5 mg PRN Q10MIN PRN IV SEV PAIN,Second choice; Start 08/12/16 at 14:30; Stop 08/13/16 at 14:29 Prochlorperazine Edisylate (Compazine) 5 mg PACU PRN PRN IV NAUSEA; Start at 14:30; Stop 08/13/16 at 14:29 Losartan Potassium (Cozaar) 100 mg DAILY PO Last administered on 08/13/16 09:23 ; Start 08/12/16 at 17:00 Hydrochlorothiazide (Microzide) 12.5 mg DAILY PO Last administered on 08/13/16 09:23; Start 08/12/16 at 17:00 Active Scripts Active Reported Tizanidine Hcl 4 Mg Tablet Lisinopril-Hctz 10-12.5 Mg Tab (Lisinopril/Hydrochlorothiazide) 1 Each Tablet Alprazolam 1 Mg Tablet Proair Hfa (Albuterol Sulfate) 8.5 Gm Hfa.aer.ad Tramadol Hcl 50 Mg Tablet Citalopram Hbr (Citalopram Hydrobromide) 10 Mg Tablet Valsartan-Hctz 160-12.5 Mg Tab (Valsartan/Hydrochlorothiazide) 1 Each Tablet 1 Each PO DAILY Trazodone Hcl 50 Mg Tablet 50 Mg PO HS Combivent Respimat Inhal (Ipratropium/Albuterol Sulfate) 4 Gm Aer.w.adap 2 Inh IH QID Albuterol Sulfate Hfa Inhaler (Albuterol Sulfate) 8.5 Gm Hfa.aer.ad 8.5 Gm IH PRN Xanax (Alprazolam) 1 Mg Tablet 0.5 Mg PO TID PRN Vitals/I & O Vital Sign - Last 24 Hours 08/12/16 08/12/16 08/12/16 08/12/16 09:52 10:00 11:00 11:06 Pulse 119 126 Resp 24 B/P 185/105 166/100 Pulse Ox 96 92 99 O2 Delivery BiPAP/CPAP BiPAP/CPAP BiPAP/CPAP BiPAP/CPAP 08/12/16 08/12/16 08/12/16 08/12/16 12:00 13:39 13:50 13:50 Temp 97.7 97.7 Pulse 123 Resp 22 B/P 197/101 Pulse Ox 99 95 O2 Delivery Bi-pap 100% non rebreather mask BiPAP/CPAP Non-Rebreather O2 Flow Rate 10.0 10 08/12/16 08/12/16 08/12/16 08/12/16 13:54 14:09 14:24 15:00 Temp 98.4 98.4 Pulse 122 123 128 126 Resp 24 24 24 23 B/P 198/83 189/96 187/76 176/93 Pulse Ox 99 99 93 100 O2 Delivery BiPAP/CPAP BiPAP/CPAP BiPAP/CPAP BiPAP/CPAP 08/12/16 08/12/16 08/12/16 08/12/16 15:00 16:00 16:00 16:39 Pulse 118 124 Resp 23 B/P 182/104 183/100 Pulse Ox 98 100 O2 Delivery BiPAP/CPAP BiPAP/CPAP Bi-pap 08/12/16 08/12/16 08/12/16 08/12/16 16:42 17:00 18:00 19:00 Pulse 110 126 125 Resp 24 22 23 B/P 179/94 177/100 170/101 Pulse Ox 100 99 99 95 O2 Delivery BiPAP/CPAP BiPAP/CPAP BiPAP/CPAP 08/12/16 08/12/16 08/12/16 08/12/16 19:51 20:00 20:00 20:08 Temp 98.8 98.8 Pulse 127 Resp 24 B/P 124/80 Pulse Ox 92 95 96 O2 Delivery BiPAP/CPAP BiPAP/CPAP Bi-pap BiPAP/CPAP 08/12/16 08/12/16 08/12/16 08/12/16 21:00 22:00 23:00 23:03 Pulse 125 137 128 Resp 23 23 24 23 B/P 157/93 157/96 156/96 Pulse Ox 97 95 97 98 O2 Delivery BiPAP/CPAP BiPAP/CPAP BiPAP/CPAP BiPAP/CPAP 08/12/16 08/12/16 08/13/16 08/13/16 23:56 23:59 00:00 01:00 Temp 98.6 98.6 Pulse 119 127 Resp 24 24 B/P 154/99 151/93 Pulse Ox 98 97 95 O2 Delivery BiPAP/CPAP Bi-pap BiPAP/CPAP BiPAP/CPAP 08/13/16 08/13/16 08/13/16 08/13/16 02:00 02:03 02:54 03:00 Pulse 126 122 Resp 24 23 B/P 167/100 167/102 Pulse Ox 97 97 98 95 O2 Delivery BiPAP/CPAP BiPAP/CPAP BiPAP/CPAP BiPAP/CPAP 08/13/16 08/13/16 08/13/16 08/13/16 03:24 04:00 04:00 04:04 Temp 98.8 98.8 Pulse 128 Resp 24 B/P 163/99 Pulse Ox 96 98 98 O2 Delivery BiPAP/CPAP Bi-pap BiPAP/CPAP BiPAP/CPAP 08/13/16 08/13/16 08/13/16 08/13/16 05:00 06:00 06:10 07:00 Pulse 127 129 125 Resp 23 B/P 151/102 159/100 155/82 Pulse Ox 97 97 98 90 O2 Delivery BiPAP/CPAP BiPAP/CPAP BiPAP/CPAP BiPAP/CPAP 08/13/16 08/13/16 08/13/16 08/13/16 07:48 08:00 08:40 09:23 Pulse 124 B/P 159/91 Pulse Ox 94 97 O2 Delivery BiPAP/CPAP Bi-pap Nasal Cannula O2 Flow Rate 4.0 Intake and Output 08/12/16 08/12/16 08/13/16 15:00 23:00 07:00 Intake Total 500 ml Output Total 1930 ml 995 ml 430 ml Balance -1430 ml -995 ml -430 ml JAMIN EVANS MD Aug 13, 2016 09:58
--- NOTE | 2016-08-13 09:59 | PDOC ---
PULMONARY PROGRESS NOTES Subjective s/p left hip surgery came off vent Vitals Vital Signs Date Time Temp Pulse Resp B/P Pulse Ox O2 Delivery O2 Flow Rate FiO2 08/13/16 09:23 124 159/91 08/13/16 08:40 97 Nasal Cannula 4.0 08/13/16 07:00 23 08/13/16 04:00 98.8 98.8 General: Alert, No acute distress Lungs: Other (decrease bs) Cardiovascular: S1 Abdomen: Soft, Non-tender Neuro Exam: Alert Extremities: No Edema, Other Labs Laboratory Tests Test 08/11/16 15:10 08/11/16 15:35 08/11/16 16:20 08/11/16 16:30 White Blood Count 5.5x10^3/uL (4.0-11.0) Red Blood Count 3.16x10^6/uL (3.50-5.40) Hemoglobin 9.3g/dL (12.0-15.5) Hematocrit 30.7% (36.0-47.0) Mean Corpuscular Volume 97fL (79-100) Mean Corpuscular Hemoglobin 30pg (25-35) Mean Corpuscular Hemoglobin Concent 30g/dL (31-37) Red Cell Distribution Width 15.4% (11.5-14.5) Platelet Count 127x10^3/uL (140-400) Neutrophils (%) (Auto) 75% (31-73) Lymphocytes (%) (Auto) 14% (24-48) Monocytes (%) (Auto) 8% (0-9) Eosinophils (%) (Auto) 3% (0-3) Basophils (%) (Auto) 0% (0-3) Neutrophils # (Auto) 4.1x10^3uL (1.8-7.7) Lymphocytes # (Auto) 0.8x10^3/uL (1.0-4.8) Monocytes # (Auto) 0.4x10^3/uL (0.0-1.1) Eosinophils # (Auto) 0.2x10^3/uL (0.0-0.7) Basophils # (Auto) 0.0x10^3/uL (0.0-0.2) Sodium Level 143mmol/L (136-145) Potassium Level 4.6mmol/L (3.5-5.1) Chloride Level 106mmol/L (98-107) Carbon Dioxide Level 28mmol/L (21-32) Anion Gap 9 (6-14) Blood Urea Nitrogen 24mg/dL (7-20) Creatinine 1.5mg/dL (0.6-1.0) Estimated GFR (Cockcroft-Gault) 34.5 Glucose Level 113mg/dL (70-99) Calcium Level 9.1mg/dL (8.5-10.1) Troponin I Quantitative < 0.017ng/mL (0.000-0.055) QV-Glu-I-Type Natriuretic Peptide 539pg/mL (0-124) Influenza Type A Antigen Negative (NEGATIVE) Influenza Type B Antigen Negative (NEGATIVE) O2 Saturation 90% (92-99) Arterial Blood pH 7.27 (7.35-7.45) Arterial Blood pCO2 at Patient Temp 53mmHg (35-46) Arterial Blood pO2 at Patient Temp 57mmHg (65-108) Arterial Blood HCO3 24mmol/L (21-28) Arterial Blood Base Excess -3mmol/L (-3-3) Oxyhemoglobin 88.4% Methemoglobin 0.3% (0.0-1.9) Carbon Monoxide, Quantitative 0.9% (0.0-1.9) FiO2 40 Urine Collection Type U cath Urine Color Yellow Urine Clarity Clear Urine pH 5.5 Urine Specific [place] 1.015 Urine Protein Negativemg/dL (NEG-TRACE) Urine Glucose (UA) Negativemg/dL (NEG) Urine Ketones (Stick) Negativemg/dL (NEG) Urine Blood Negative (NEG) Urine Nitrite Negative (NEG) Urine Bilirubin Negative (NEG) Urine Urobilinogen Dipstick 0.2mg/dL (0.2 mg/dL) Urine Leukocyte Esterase Negative (NEG) Urine RBC 0/HPF (0-2) Urine WBC 0/HPF (0-4) Urine Squamous Epithelial Cells None/LPF Urine Transitional Epithelial Cells Occ/LPF Urine Bacteria 0/HPF (0-FEW) Urine Hyaline Casts Moderate/HPF Urine Mucus Mod/LPF Test 08/11/16 19:00 08/12/16 04:40 08/12/16 06:00 08/12/16 07:15 Nasal Screen MRSA (PCR) Negative (Negative) Sodium Level 143mmol/L (136-145) Potassium Level 4.9mmol/L (3.5-5.1) Chloride Level 106mmol/L (98-107) Carbon Dioxide Level 26mmol/L (21-32) Anion Gap 11 (6-14) Blood Urea Nitrogen 27mg/dL (7-20) Creatinine 1.0mg/dL (0.6-1.0) Estimated GFR (Cockcroft-Gault) 55.1 Glucose Level 97mg/dL (70-99) Calcium Level 8.8mg/dL (8.5-10.1) White Blood Count 5.1x10^3/uL (4.0-11.0) Red Blood Count 2.91x10^6/uL (3.50-5.40) Hemoglobin 8.5g/dL (12.0-15.5) Hematocrit 27.3% (36.0-47.0) Mean Corpuscular Volume 94fL (79-100) Mean Corpuscular Hemoglobin 29pg (25-35) Mean Corpuscular Hemoglobin Concent 31g/dL (31-37) Red Cell Distribution Width 14.7% (11.5-14.5) Platelet Count 113x10^3/uL (140-400) Neutrophils (%) (Auto) 91% (31-73) Lymphocytes (%) (Auto) 5% (24-48) Monocytes (%) (Auto) 4% (0-9) Eosinophils (%) (Auto) 0% (0-3) Basophils (%) (Auto) 0% (0-3) Neutrophils # (Auto) 4.7x10^3uL (1.8-7.7) Lymphocytes # (Auto) 0.3x10^3/uL (1.0-4.8) Monocytes # (Auto) 0.2x10^3/uL (0.0-1.1) Eosinophils # (Auto) 0.0x10^3/uL (0.0-0.7) Basophils # (Auto) 0.0x10^3/uL (0.0-0.2) Segmented Neutrophils % 94% (35-66) Band Neutrophils % 1% (0-9) Lymphocytes % 5% (24-48) Platelet Estimate Adequate (ADEQUATE) Platelet Clumps, EDTA Present O2 Saturation 98% (92-99) Arterial Blood pH 7.31 (7.35-7.45) Arterial Blood pCO2 at Patient Temp 52mmHg (35-46) Arterial Blood pO2 at Patient Temp 115mmHg (65-108) Arterial Blood HCO3 25mmol/L (21-28) Arterial Blood Base Excess -1mmol/L (-3-3) FiO2 40 Test 08/13/16 08:00 O2 Saturation 94% (92-99) Arterial Blood pH 7.39 (7.35-7.45) Arterial Blood pCO2 at Patient Temp 47mmHg (35-46) Arterial Blood pO2 at Patient Temp 68mmHg (65-108) Arterial Blood HCO3 28mmol/L (21-28) Arterial Blood Base Excess 2mmol/L (-3-3) FiO2 30 Laboratory Tests Test 08/13/16 08:00 O2 Saturation 94% (92-99) Arterial Blood pH 7.39 (7.35-7.45) Arterial Blood pCO2 at Patient Temp 47mmHg (35-46) Arterial Blood pO2 at Patient Temp 68mmHg (65-108) Arterial Blood HCO3 28mmol/L (21-28) Arterial Blood Base Excess 2mmol/L (-3-3) FiO2 30 Medications Active Scripts Medications Dose Route/Sig Days Date Category Tizanidine Hcl 4 Mg Tablet 08/13/16 Reported Lisinopril-Hctz 10-12.5 Mg Tab (Lisinopril/Hydrochlorothiazide) 1 Each Tablet 08/13/16 Reported Alprazolam 1 Mg Tablet 08/13/16 Reported Proair Hfa (Albuterol Sulfate) 8.5 Gm Hfa.aer.ad 08/13/16 Reported Tramadol Hcl 50 Mg Tablet 08/13/16 Reported Citalopram Hbr (Citalopram Hydrobromide) 10 Mg Tablet 08/13/16 Reported Valsartan-Hctz 160-12.5 Mg Tab (Valsartan/Hydrochlorothiazide) 1 Each Tablet 1 Each PO DAILY 08/12/16 Reported Trazodone Hcl 50 Mg Tablet 50 Mg PO HS 08/12/16 Reported Combivent Respimat Inhal (Ipratropium/Albuterol Sulfate) 4 Gm Aer.w.adap 2 Inh IH QID 08/12/16 Reported Albuterol Sulfate Hfa Inhaler (Albuterol Sulfate) 8.5 Gm Hfa.aer.ad 8.5 Gm IH PRN 08/28/13 Reported Xanax (Alprazolam) 1 Mg Tablet 0.5 Mg PO TID PRN 08/28/13 Reported Impression . 1. Acute on chronic hypercapnic respiratory failure secondary to acute exacerbation of chronic obstructive pulmonary disease and effect of narcotics. 2. History of severe oxygen dependent chronic obstructive airway disease. She is normally on 4 liters during the day and Trilogy vent at night. 3. Sinus tachycardia, most likely triggered by pain, resolved 4. Left hip fracture. s/p surgery 08/12 Plan . 1. Nasal canula/ BIPAP or home trilogy qhs 2. Minimized the use of narcotics and benzodiazepines. 3. Continue with DuoNeb. 4. SCDs for Deep venous thrombosis prophylaxis. 5. Follow ortho recommendations Critical care time 39 minutes, discussed with RN and anesthesia IVANIA MARIN MD Aug 13, 2016 09:59
--- NOTE | 2016-08-13 14:10 | CONS ---
DATE OF CONSULTATION: 08/12/2016 ORTHOPEDIC CONSULTATION REQUESTING PHYSICIAN: Dr. Kasi Lemons. REASON FOR CONSULTATION: Left hip fracture. HISTORY OF PRESENT ILLNESS: The patient is a 70-year-old female with severe listed as end-stage COPD, fell at home sustaining a left femoral neck fracture. The patient is somewhat confused and therefore a poor historian. PAST MEDICAL HISTORY: Really from records review as the patient is really nonverbal and on BiPAP in the intensive care unit currently. Past medical history is significant for end-stage COPD. MEDICATIONS: List is reviewed. ALLERGIES: INCLUDE AMLODIPINE. SOCIAL HISTORY: lives at home with the patient, but has dementia. Power of attorney lawyer is one of their sons. No smoking, alcohol or drug use. FAMILY HISTORY: Noncontributory. REVIEW OF SYSTEMS: Aside from the chronic shortness of breath and oxygen-dependent COPD, no other problems besides the hip pain with inability to ambulate. PHYSICAL EXAMINATION: GENERAL: On examination, again is on BiPAP, nonverbal. No evidence of head trauma or neck tenderness. EXTREMITIES: On examination of the lower extremities, the left leg is tender over the groin with pain. No leg length discrepancy is noted. She has normal examination of the contralateral right hip, bilateral knees and ankles with intact motor function, distal pulses, sensation in both lower extremities throughout. She is nonverbal, combative and does not move the left leg as she has the pain response. IMAGING: X-rays show a femoral neck fracture that has minimal displacement. ASSESSMENT: 1. Left femoral neck fracture, minimal displacement. 2. End-stage chronic obstructive pulmonary disease, on oxygen. TREATMENT PLAN: I was unable to meaningfully talk to the patient, but did reassure her that we would help fix her hip fracture and stabilize it. Consent was obtained from her family and although she is at high risk for surgical stabilization, risk of immobility related complications would be equally or more high and therefore agreement from other medical providers to proceed with surgical evaluation and treatment which will occur today. KACIE FUENTES MD DR: CHAI/marni JOB#: [id number] / [id number]
--- NOTE | 2016-08-13 14:54 | PDOC ---
ORTHO PROGRESS NOTES Subjective Patient is confused. Not yet OOB per RN, but PT/OT ordered and plan to visit today. Patient only on IV fentanyl currently for pain control. Post-op Day: 1 (Left hip pinning) Vitals Vital Signs Date Time Temp Pulse Resp B/P Pulse Ox O2 Delivery O2 Flow Rate FiO2 08/13/16 14:31 Nasal Cannula 4.0 08/13/16 12:00 98.8 125 19 162/87 98 98.8 Labs Laboratory Tests Test 08/11/16 15:10 08/11/16 15:35 08/11/16 16:20 08/11/16 16:30 White Blood Count 5.5x10^3/uL (4.0-11.0) Red Blood Count 3.16x10^6/uL (3.50-5.40) Hemoglobin 9.3g/dL (12.0-15.5) Hematocrit 30.7% (36.0-47.0) Mean Corpuscular Volume 97fL (79-100) Mean Corpuscular Hemoglobin 30pg (25-35) Mean Corpuscular Hemoglobin Concent 30g/dL (31-37) Red Cell Distribution Width 15.4% (11.5-14.5) Platelet Count 127x10^3/uL (140-400) Neutrophils (%) (Auto) 75% (31-73) Lymphocytes (%) (Auto) 14% (24-48) Monocytes (%) (Auto) 8% (0-9) Eosinophils (%) (Auto) 3% (0-3) Basophils (%) (Auto) 0% (0-3) Neutrophils # (Auto) 4.1x10^3uL (1.8-7.7) Lymphocytes # (Auto) 0.8x10^3/uL (1.0-4.8) Monocytes # (Auto) 0.4x10^3/uL (0.0-1.1) Eosinophils # (Auto) 0.2x10^3/uL (0.0-0.7) Basophils # (Auto) 0.0x10^3/uL (0.0-0.2) Sodium Level 143mmol/L (136-145) Potassium Level 4.6mmol/L (3.5-5.1) Chloride Level 106mmol/L (98-107) Carbon Dioxide Level 28mmol/L (21-32) Anion Gap 9 (6-14) Blood Urea Nitrogen 24mg/dL (7-20) Creatinine 1.5mg/dL (0.6-1.0) Estimated GFR (Cockcroft-Gault) 34.5 Glucose Level 113mg/dL (70-99) Calcium Level 9.1mg/dL (8.5-10.1) Troponin I Quantitative < 0.017ng/mL (0.000-0.055) IT-Usj-K-Type Natriuretic Peptide 539pg/mL (0-124) Influenza Type A Antigen Negative (NEGATIVE) Influenza Type B Antigen Negative (NEGATIVE) O2 Saturation 90% (92-99) Arterial Blood pH 7.27 (7.35-7.45) Arterial Blood pCO2 at Patient Temp 53mmHg (35-46) Arterial Blood pO2 at Patient Temp 57mmHg (65-108) Arterial Blood HCO3 24mmol/L (21-28) Arterial Blood Base Excess -3mmol/L (-3-3) Oxyhemoglobin 88.4% Methemoglobin 0.3% (0.0-1.9) Carbon Monoxide, Quantitative 0.9% (0.0-1.9) FiO2 40 Urine Collection Type U cath Urine Color Yellow Urine Clarity Clear Urine pH 5.5 Urine Specific [place] 1.015 Urine Protein Negativemg/dL (NEG-TRACE) Urine Glucose (UA) Negativemg/dL (NEG) Urine Ketones (Stick) Negativemg/dL (NEG) Urine Blood Negative (NEG) Urine Nitrite Negative (NEG) Urine Bilirubin Negative (NEG) Urine Urobilinogen Dipstick 0.2mg/dL (0.2 mg/dL) Urine Leukocyte Esterase Negative (NEG) Urine RBC 0/HPF (0-2) Urine WBC 0/HPF (0-4) Urine Squamous Epithelial Cells None/LPF Urine Transitional Epithelial Cells Occ/LPF Urine Bacteria 0/HPF (0-FEW) Urine Hyaline Casts Moderate/HPF Urine Mucus Mod/LPF Test 08/11/16 19:00 08/12/16 04:40 08/12/16 06:00 08/12/16 07:15 Nasal Screen MRSA (PCR) Negative (Negative) Sodium Level 143mmol/L (136-145) Potassium Level 4.9mmol/L (3.5-5.1) Chloride Level 106mmol/L (98-107) Carbon Dioxide Level 26mmol/L (21-32) Anion Gap 11 (6-14) Blood Urea Nitrogen 27mg/dL (7-20) Creatinine 1.0mg/dL (0.6-1.0) Estimated GFR (Cockcroft-Gault) 55.1 Glucose Level 97mg/dL (70-99) Calcium Level 8.8mg/dL (8.5-10.1) White Blood Count 5.1x10^3/uL (4.0-11.0) Red Blood Count 2.91x10^6/uL (3.50-5.40) Hemoglobin 8.5g/dL (12.0-15.5) Hematocrit 27.3% (36.0-47.0) Mean Corpuscular Volume 94fL (79-100) Mean Corpuscular Hemoglobin 29pg (25-35) Mean Corpuscular Hemoglobin Concent 31g/dL (31-37) Red Cell Distribution Width 14.7% (11.5-14.5) Platelet Count 113x10^3/uL (140-400) Neutrophils (%) (Auto) 91% (31-73) Lymphocytes (%) (Auto) 5% (24-48) Monocytes (%) (Auto) 4% (0-9) Eosinophils (%) (Auto) 0% (0-3) Basophils (%) (Auto) 0% (0-3) Neutrophils # (Auto) 4.7x10^3uL (1.8-7.7) Lymphocytes # (Auto) 0.3x10^3/uL (1.0-4.8) Monocytes # (Auto) 0.2x10^3/uL (0.0-1.1) Eosinophils # (Auto) 0.0x10^3/uL (0.0-0.7) Basophils # (Auto) 0.0x10^3/uL (0.0-0.2) Segmented Neutrophils % 94% (35-66) Band Neutrophils % 1% (0-9) Lymphocytes % 5% (24-48) Platelet Estimate Adequate (ADEQUATE) Platelet Clumps, EDTA Present O2 Saturation 98% (92-99) Arterial Blood pH 7.31 (7.35-7.45) Arterial Blood pCO2 at Patient Temp 52mmHg (35-46) Arterial Blood pO2 at Patient Temp 115mmHg (65-108) Arterial Blood HCO3 25mmol/L (21-28) Arterial Blood Base Excess -1mmol/L (-3-3) FiO2 40 Test 08/13/16 08:00 O2 Saturation 94% (92-99) Arterial Blood pH 7.39 (7.35-7.45) Arterial Blood pCO2 at Patient Temp 47mmHg (35-46) Arterial Blood pO2 at Patient Temp 68mmHg (65-108) Arterial Blood HCO3 28mmol/L (21-28) Arterial Blood Base Excess 2mmol/L (-3-3) FiO2 30 Laboratory Tests Test 08/13/16 08:00 O2 Saturation 94% (92-99) Arterial Blood pH 7.39 (7.35-7.45) Arterial Blood pCO2 at Patient Temp 47mmHg (35-46) Arterial Blood pO2 at Patient Temp 68mmHg (65-108) Arterial Blood HCO3 28mmol/L (21-28) Arterial Blood Base Excess 2mmol/L (-3-3) FiO2 30 Notes Patient is awake and alert breathing unlabored. Not oriented. Able to follow simple commands and move all extremities. Neurovascular intact left lower extremity. Incision well approximated no signs or symptoms of infection. Mild edema Problems: (1) Closed left femoral fracture Assessment and Plan I started PO pain medication, hopefully this will give her better pain control and she can better participate in therapy WBAT Problem Qualifiers (1) Closed left femoral fracture: Encounter type: subsequent encounter Femur location: neck Fracture healing: with routine healing Qualified Code: S72.002D - Fracture of unspecified part of neck of left femur, subsequent encounter for closed fracture with routine healing OSEI BOYLE APRN Aug 13, 2016 14:54
[2016-08-13] MEDS: HYDROCODONE/APAP 5/325MG TABLET. PO PRN ×2 (16:51→21:09)
[2016-08-14] VITALS: BP 168/92
[2016-08-14] MEDS: LORAZEPAM 2 MG/ML VIAL IV PRN ×2 (01:18→06:04)
[2016-08-14] MEDS: IPRATRPIUM/ALBUTEROL 0.5/2.5MG 3 ML NEBU. NEB PRN ×2 (06:01→23:02)
[2016-08-14] MEDS: HYDROCODONE/APAP 5/325MG TABLET. PO PRN ×4 (06:04→21:29)
[2016-08-14 06:26] LABS: HEMATOCRIT 28.4 % (36.0-47.0); HEMOGLOBIN 9.2 g/dL (12.0-15.5); RED BLOOD COUNT 3.11 x10^6/uL (3.50-5.40); RED CELL DISTRIBUTION WIDTH 15.3 % (11.5-14.5); WHITE BLOOD COUNT 10.6 x10^3/uL (4.0-11.0)
[2016-08-14 07:00] VITALS: BP 159/82
[2016-08-14] MEDS: HYDROCHLOROTHIAZIDE 12.5 MG CAPSULE. PO SCH (08:48)
[2016-08-14] MEDS: LOSARTAN POTASSIUM 50 MG TABLET. PO SCH (08:48)
--- NOTE | 2016-08-14 09:24 | PDOC ---
PROGRESS NOTES Subjective Subjective Pt awake and confused. Denies pain. Objective Objective Pt awake and alert. NAD. VSS. BP mildly elevated, probable secondary to not having antihypertensive medication for 2 days. Afebrile. Lungs with loose rhonchi and expiratory wheeze. Resp even and unlabored. Pt on 5L of O2 per NC. Heart with RRR. No murmurs. Left hip incision well approximated without surrounding edema or erythema. Vital Signs Date Time Temp Pulse Resp B/P Pulse Ox O2 Delivery O2 Flow Rate FiO2 08/14/16 08:48 116 159/82 08/14/16 07:57 Nasal Cannula 5.0 08/14/16 07:14 77 08/14/16 07:00 98.2 18 98.2 Intake and Output 08/14/16 07:00 Intake Total 200 ml Output Total 2020 ml Balance -1820 ml Intake Oral 200 ml Output Urine Total 2020 ml Assessment Assessment Problems Medical Problems: (1) Acute and chronic respiratory failure ([id number]) Status: Acute (2) Closed left femoral fracture Status: Acute (3) COPD exacerbation Status: Acute Plan Plan of Care 1. Left hip fx -secondary to mechanical fall on 08/11/16 -Ortho consulting -s/p closed reduction with percutaneous screw fixation on 08/12/16 -Hgb 9.2 this am, trending up -PT/OT referral to begin mobilization 2. COPD with acute exacerbation -prior to admission, pt on 4L of O2 and Trilogy at -Pulmonology consulting -Successful extubation on 08/12. Pt now on BiPaP 3. Encephalopathy -probable secondary to narcotic medication for pain control and/or hypercapnia -Pt changed to PO pain meds on 08/13 per ortho -Neuro consulted for input consulting to help with Dc plans. Pt will need SNF upon Dc. Awaiting improvement in Encephalopathy prior to Dc. Comment Review of Relevant I have reviewed the following items pako (where applicable) has been applied. Labs Laboratory Tests Test 08/13/16 08:00 08/14/16 05:20 O2 Saturation 94% (92-99) Arterial Blood pH 7.39 (7.35-7.45) Arterial Blood pCO2 at Patient Temp 47mmHg (35-46) Arterial Blood pO2 at Patient Temp 68mmHg (65-108) Arterial Blood HCO3 28mmol/L (21-28) Arterial Blood Base Excess 2mmol/L (-3-3) FiO2 30 White Blood Count 10.6x10^3/uL (4.0-11.0) Red Blood Count 3.11x10^6/uL (3.50-5.40) Hemoglobin 9.2g/dL (12.0-15.5) Hematocrit 28.4% (36.0-47.0) Mean Corpuscular Volume 91fL (79-100) Mean Corpuscular Hemoglobin 30pg (25-35) Mean Corpuscular Hemoglobin Concent 33g/dL (31-37) Red Cell Distribution Width 15.3% (11.5-14.5) Platelet Count 217x10^3/uL (140-400) Laboratory Tests Test 08/14/16 05:20 White Blood Count 10.6x10^3/uL (4.0-11.0) Red Blood Count 3.11x10^6/uL (3.50-5.40) Hemoglobin 9.2g/dL (12.0-15.5) Hematocrit 28.4% (36.0-47.0) Mean Corpuscular Volume 91fL (79-100) Mean Corpuscular Hemoglobin 30pg (25-35) Mean Corpuscular Hemoglobin Concent 33g/dL (31-37) Red Cell Distribution Width 15.3% (11.5-14.5) Platelet Count 217x10^3/uL (140-400) Microbiology 08/11/16 Blood Culture - Preliminary, Resulted NO GROWTH AFTER 2 DAYS Medications Current Medications Albuterol/ Ipratropium (Duoneb) 3 ml 1X ONCE NEB Last administered on 16:34; Start 08/11/16 at 16:00; Stop 08/11/16 at 16:01; Status DC Methylprednisolone Sodium Succinate (Solu-Medrol 125mg Vial) 125 mg 1X ONCE IV Last administered on 08/11/16 16:07; Start 08/11/16 at 16:00; Stop 08/11/16 at 16:01; Status DC Fentanyl Citrate (Fentanyl 2ml Vial) 25 mcg 1X ONCE IV Last administered on 16:26; Start 08/11/16 at 16:30; Stop 08/11/16 at 16:31; Status DC Fentanyl Citrate (Fentanyl 2ml Vial) 100 mcg STK-MED ONCE .ROUTE ; Start at 16:22; Stop 08/11/16 at 16:23; Status DC Albuterol/ Ipratropium 3 ml 3 ml PRN Q4HRS PRN NEB dysnea Last administered on 08/14/16 06:01; Start 08/11/16 at 17:30 Potassium Chloride/Sodium Chloride (KCl 20 Meq-NS 1,000 ml Iv Soln) 1,000 ml @ 100 mls/hr 1X ONCE IV Last administered on 08/11/16 19:41; Start 08/11/16 at 18 :00; Stop 08/12/16 at 03:59; Status DC Fentanyl Citrate 25 mcg 25 mcg PRN Q2HR PRN IV PAIN Last administered on 14:31; Start 08/11/16 at 18:30 Sodium Chloride (Iv Sodium Chloride 0.9% 500ml Bag) 500 ml @ 500 mls/hr 1X ONCE IV Last administered on 08/11/16 18:35; Start 08/11/16 at 18:45; Stop at 19:44; Status DC Lorazepam 0.5 mg 0.5 mg PRN Q4HRS PRN IV ANXIETY / AGITATION Last administered on 08/14/16 06:04; Start 08/11/16 at 20:45 Sodium Chloride 250 ml @ 250 mls/hr 1X ONCE IV ; Start 08/12/16 at 10:00; Stop 08/12/16 at 10:02; Status DC Sodium Chloride (Iv Sodium Chloride 0.9% 500ml Bag) 500 ml @ 500 mls/hr 1X ONCE IV Last administered on 08/12/16 10:04; Start 08/12/16 at 10:02; Stop at 11:01; Status DC Dexamethasone Sodium Phosphate (Decadron) 20 mg STK-MED ONCE .ROUTE ; Start 08/12 at 10:16; Stop 08/12/16 at 10:17; Status DC Ondansetron HCl 4 mg 4 mg STK-MED ONCE .ROUTE ; Start 08/12/16 at 10:16; Stop 08/12/16 at 10:17; Status DC Propofol (Diprivan) 20 ml @ As Directed STK-MED ONCE IV ; Start 08/12/16 at 10:16 ; Stop 08/12/16 at 10:17; Status DC Lidocaine HCl 100 mg STK-MED ONCE .ROUTE ; Start 08/12/16 at 10:16; Stop 08/12/16 at 10:17; Status DC Succinylcholine Chloride 200 mg 200 mg STK-MED ONCE .ROUTE ; Start 08/12/16 at 10 :16; Stop 08/12/16 at 10:17; Status DC Cefazolin Sodium (Ancef 1gm Ivpb For Omni) 50 ml @ As Directed STK-MED ONCE IV ; Start 08/12/16 at 12:18; Stop 08/12/16 at 12:19; Status DC Phenylephrine HCl 1 mg STK-MED ONCE IV ; Start 08/12/16 at 12:18; Stop 08/12/16 at 12:19; Status DC Sevoflurane (Ultane) 60 ml STK-MED ONCE IH ; Start 08/12/16 at 13:22; Stop at 13:23; Status DC Fentanyl Citrate (Fentanyl 2ml Vial) 100 mcg STK-MED ONCE .ROUTE ; Start at 13:22; Stop 08/12/16 at 13:23; Status DC Fentanyl Citrate (Fentanyl 2ml Vial) 25 mcg PRN Q5MIN PRN IV MILD PAIN; Start 08/12/16 at 14:30; Stop 08/13/16 at 14:29; Status DC Fentanyl Citrate (Fentanyl 2ml Vial) 50 mcg PRN Q5MIN PRN IV MODERATE PAIN; Start 08/12/16 at 14:30; Stop 08/13/16 at 14:29; Status DC Morphine Sulfate 1 mg 1 mg PRN Q10MIN PRN IV SEVERE PAIN; Start 08/12/16 at 14: 30; Stop 08/13/16 at 14:29; Status DC Lactated Ringer's (Iv Lactated Ringers) 1,000 ml @ 0 mls/hr Q0M IV Last administered on 08/12/16t 14:35; Start 08/12/16 at 14:23; Stop 08/13/16 at 02:22; Status DC Lidocaine HCl 2 ml 1X PRN PRN ID IV START; Start 08/12/16 at 14:30; Stop at 14:29; Status DC Hydromorphone HCl (Dilaudid) 0.5 mg PRN Q10MIN PRN IV SEV PAIN,Second choice; Start 08/12/16 at 14:30; Stop 08/13/16 at 14:29; Status DC Prochlorperazine Edisylate (Compazine) 5 mg PACU PRN PRN IV NAUSEA; Start at 14:30; Stop 08/13/16 at 14:29; Status DC Losartan Potassium (Cozaar) 100 mg DAILY PO Last administered on 08/14/16 08: 48; Start 08/12/16 at 17:00 Hydrochlorothiazide (Microzide) 12.5 mg DAILY PO Last administered on 08:48; Start 08/12/16 at 17:00 Acetaminophen/ Hydrocodone Bitart (Lortab 5/325) 1 tab PRN Q4HRS PRN PO PAIN Last administered on 08/13/16 16:51; Start 08/13/16 at 14:30 Acetaminophen/ Hydrocodone Bitart (Lortab 5/325) 2 tab PRN Q4HRS PRN PO PAIN Last administered on 08/14/16 06:04; Start 08/13/16 at 14:30 Active Scripts Active Reported Tizanidine Hcl 4 Mg Tablet Lisinopril-Hctz 10-12.5 Mg Tab (Lisinopril/Hydrochlorothiazide) 1 Each Tablet Alprazolam 1 Mg Tablet Proair Hfa (Albuterol Sulfate) 8.5 Gm Hfa.aer.ad Tramadol Hcl 50 Mg Tablet Citalopram Hbr (Citalopram Hydrobromide) 10 Mg Tablet Valsartan-Hctz 160-12.5 Mg Tab (Valsartan/Hydrochlorothiazide) 1 Each Tablet 1 Each PO DAILY Trazodone Hcl 50 Mg Tablet 50 Mg PO HS Combivent Respimat Inhal (Ipratropium/Albuterol Sulfate) 4 Gm Aer.w.adap 2 Inh IH QID Albuterol Sulfate Hfa Inhaler (Albuterol Sulfate) 8.5 Gm Hfa.aer.ad 8.5 Gm IH PRN Xanax (Alprazolam) 1 Mg Tablet 0.5 Mg PO TID PRN Vitals/I & O Vital Sign - Last 24 Hours 3/02/2108/13/16 08/13/16 08/13/16 09:23 12:00 14:31 15:00 Temp 98.8 98.7 98.8 98.7 Pulse 124 125 120 Resp 19 18 B/P 159/91 162/87 171/115 Pulse Ox 98 91 O2 Delivery Nasal Cannula Nasal Cannula Nasal Cannula O2 Flow Rate 4.0 4.0 4.0 08/13/16 08/13/16 08/13/16 08/13/16 16:51 18:37 20:00 20:00 Temp 97.9 97.9 Pulse 123 Resp 18 B/P 166/96 Pulse Ox 95 94 O2 Delivery Nasal Cannula Nasal Cannula Nasal Cannula Bi-pap O2 Flow Rate 4.0 4.0 4.0 5.0 08/13/16 08/13/16 08/13/16 08/14/16 21:09 21:21 22:40 00:00 Temp 98.9 98.9 Pulse 120 Resp 20 B/P 168/92 Pulse Ox 95 96 92 O2 Delivery Nasal Cannula Nasal Cannula BiPAP/CPAP Nasal Cannula O2 Flow Rate 4.0 3.0 6.0 08/14/16 08/14/16 08/14/16 08/14/16 01:27 03:31 05:28 06:01 Pulse Ox 96 96 O2 Delivery BiPAP/CPAP BiPAP/CPAP BiPAP/CPAP Nasal Cannula O2 Flow Rate 3.0 08/14/16 08/14/16 08/14/16 08/14/16 06:04 07:00 07:14 07:57 Temp 98.2 98.2 Pulse 116 Resp 18 B/P 159/82 Pulse Ox 96 95 77 O2 Delivery Nasal Cannula Nasal Cannula Room Air Nasal Cannula O2 Flow Rate 5.0 4.0 5.0 08/14/16 08:48 Pulse 116 B/P 159/82 Intake and Output 08/13/16 08/13/16 08/14/16 15:00 23:00 07:00 Intake Total 200 ml Output Total 420 ml 1200 ml 400 ml Balance -420 ml -1000 ml -400 ml JAMIN EVANS MD Aug 14, 2016 09:24
[2016-08-14 11:00] VITALS: BP 155/100
--- NOTE | 2016-08-14 12:09 | RAD ---
EXAM: CT head without contrast. HISTORY: Fall. TECHNIQUE: Computed tomography of the head was performed without intravenous contrast. COMPARISON: 08/20/14. FINDINGS: There is no intracranial hemorrhage. Hypoattenuation within the periventricular white matter indicates moderate chronic small vessel ischemic change. 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 Prominence of the lateral ventricles and hemispheric sulci indicate moderate atrophy. The visualized paranasal sinuses appear clear. There are changes of bilateral cataract surgery. The temporal bones are unremarkable. The calvarium reveals no suspicious lesions. IMPRESSION: 1. No acute intracranial findings. 2. Moderate atrophy and chronic small vessel ischemic white matter change. *One or more of the following individualized dose reduction techniques were utilized for this examination: 1. Automated exposure control. 2. Adjustment of the mA and/or kV according to patient size. 3. Use of iterative reconstruction technique.
[2016-08-14 15:00] VITALS: BP 148/89
--- NOTE | 2016-08-14 15:49 | PDOC2 ---
NEUROLOGY CONSULT Date of Admission Date of Admission DATE: 08/14/16 TIME: 15:31 Reason for Consult Reason for Consult: IMPRESSION: Metabolic encephalopathy. Respiratory distress with hypoxia events. MS changes, confusional episodes. Acute left fermoral neck subcapital fracture from falling. Fall COPD on O2 at home. HTN Renal disease. Back pain. RECOMMENDATIONS/PLAN: HCT performed, no acute findings. Lab: see orders. EEG and MRI if confuse recurs. Treat medical diseases. Avoid Narcotics if possible. HISTORY OF THE PRESENT ILLNESS: 70-y-old female patient with above medical diseases had a fall on the wood floor at home whcih resulted her left hip pain. She stated she did not loss consciousness. No shaking, jerking or contraction movements. No postictal state. No numbness or weakness prior to fall. PAST MEDICAL HISTORY: Please see above. PAST SURGERY HISTORY: Hysterectomy. ALLERGY: She was allergic to Amlodipine. MEDICATIONS: Refer to [facility] FAMILY HISTORY: Non contributory. SOCIAL HISTORY: Lives at home. Denies current smoking, drinking, and illicit drug use. REVIEW OF SYSTEMS: Constitutional: No malnutrition, weight loss, cachexia. Head: No traumatic brain or head injury. Skin: No edema, or rash. Ear: No infection, tinnitus. Eyes: No vision loss or color blindness. Nose: No bleeding or purulent discharges. Hearing: No hearing decrease. Neck: No injury. Breast: No history of cancer, masses,or discharges. Cardiac: HTN Pulmonary: COPD, chronic O2 use. GI: No GI ulcer, GI bleeding. Urinary/genital: UTI. Endocrinologic: No cousin face, craniofacial dysmorphism, polydactyly. Skeletomuscular: Falls. Neurological: see HP. Psychiatric: Denies drug use/abuse. Otherwise, not [id number] review of systems. PHYSICAL EXAMINATION: General appearance is in subacute distress. HEENT: Normocephalic and nontraumatic. Eyes, nose, ears, and throat are unremarkable. Neck is supple. No lymphadenopathy. No bruits are heard over the carotid artery. No crepitus. Cardiovascular: S1, S2, regular rate and rhythm. Pulmonary: Breath sounds decreased to auscultation bilaterally. Abdomen: Bowel sounds are positive. Abdomen is soft, nontender, and nondistended. Extremities: No rash, lesions, or edema. Left LE with restriction of range of motion NEUROLOGICAL EXAMINATION: Awake. Sitting in chair. Oriented to place and person and partially to time.. PERRL. EOMI. CN: no focal findings. Muscle tone: within normal. Muscle strength: 5, except left LE due to pain and restriction of range of motion. DTR: 2 Plantar reflex: Flexor response bilaterally Gait: Unable to walk at the present time. Sensory exam: no acute abnormal findings. No obvious cerebellar signs elicited. F-T-N test fine. Current Medications Current Medications Current Medications Albuterol/ Ipratropium (Duoneb) 3 ml 1X ONCE NEB Last administered on 16:34; Start 08/11/16 at 16:00; Stop 08/11/16 at 16:01; Status DC Methylprednisolone Sodium Succinate (Solu-Medrol 125mg Vial) 125 mg 1X ONCE IV Last administered on 08/11/16 16:07; Start 08/11/16 at 16:00; Stop 08/11/16 at 16:01; Status DC Fentanyl Citrate (Fentanyl 2ml Vial) 25 mcg 1X ONCE IV Last administered on 16:26; Start 08/11/16 at 16:30; Stop 08/11/16 at 16:31; Status DC Fentanyl Citrate (Fentanyl 2ml Vial) 100 mcg STK-MED ONCE .ROUTE ; Start at 16:22; Stop 08/11/16 at 16:23; Status DC Albuterol/ Ipratropium 3 ml 3 ml PRN Q4HRS PRN NEB dysnea Last administered on 08/14/16 06:01; Start 08/11/16 at 17:30 Potassium Chloride/Sodium Chloride (KCl 20 Meq-NS 1,000 ml Iv Soln) 1,000 ml @ 100 mls/hr 1X ONCE IV Last administered on 08/11/16 19:41; Start 08/11/16 at 18 :00; Stop 08/12/16 at 03:59; Status DC Fentanyl Citrate 25 mcg 25 mcg PRN Q2HR PRN IV PAIN Last administered on 14:31; Start 08/11/16 at 18:30 Sodium Chloride (Iv Sodium Chloride 0.9% 500ml Bag) 500 ml @ 500 mls/hr 1X ONCE IV Last administered on 08/11/16 18:35; Start 08/11/16 at 18:45; Stop at 19:44; Status DC Lorazepam 0.5 mg 0.5 mg PRN Q4HRS PRN IV ANXIETY / AGITATION Last administered on 08/14/16t 06:04; Start 08/11/16 at 20:45 Sodium Chloride 250 ml @ 250 mls/hr 1X ONCE IV ; Start 08/12/16 at 10:00; Stop 08/12/16 at 10:02; Status DC Sodium Chloride (Iv Sodium Chloride 0.9% 500ml Bag) 500 ml @ 500 mls/hr 1X ONCE IV Last administered on 08/12/16t 10:04; Start 08/12/16 at 10:02; Stop at 11:01; Status DC Dexamethasone Sodium Phosphate (Decadron) 20 mg STK-MED ONCE .ROUTE ; Start 08/12 at 10:16; Stop 08/12/16 at 10:17; Status DC Ondansetron HCl 4 mg 4 mg STK-MED ONCE .ROUTE ; Start 08/12/16 at 10:16; Stop 08/12/16 at 10:17; Status DC Propofol (Diprivan) 20 ml @ As Directed STK-MED ONCE IV ; Start 08/12/16 at 10:16 ; Stop 08/12/16 at 10:17; Status DC Lidocaine HCl 100 mg STK-MED ONCE .ROUTE ; Start 08/12/16 at 10:16; Stop 08/12/16 at 10:17; Status DC Succinylcholine Chloride 200 mg 200 mg STK-MED ONCE .ROUTE ; Start 08/12/16 at 10 :16; Stop 08/12/16 at 10:17; Status DC Cefazolin Sodium (Ancef 1gm Ivpb For Omni) 50 ml @ As Directed STK-MED ONCE IV ; Start 08/12/16 at 12:18; Stop 08/12/16 at 12:19; Status DC Phenylephrine HCl 1 mg STK-MED ONCE IV ; Start 08/12/16 at 12:18; Stop 08/12/16 at 12:19; Status DC Sevoflurane (Ultane) 60 ml STK-MED ONCE IH ; Start 08/12/16 at 13:22; Stop at 13:23; Status DC Fentanyl Citrate (Fentanyl 2ml Vial) 100 mcg STK-MED ONCE .ROUTE ; Start at 13:22; Stop 08/12/16 at 13:23; Status DC Fentanyl Citrate (Fentanyl 2ml Vial) 25 mcg PRN Q5MIN PRN IV MILD PAIN; Start 08/12/16 at 14:30; Stop 08/13/16 at 14:29; Status DC Fentanyl Citrate (Fentanyl 2ml Vial) 50 mcg PRN Q5MIN PRN IV MODERATE PAIN; Start 08/12/16 at 14:30; Stop 08/13/16 at 14:29; Status DC Morphine Sulfate 1 mg 1 mg PRN Q10MIN PRN IV SEVERE PAIN; Start 08/12/16 at 14: 30; Stop 08/13/16 at 14:29; Status DC Lactated Ringer's (Iv Lactated Ringers) 1,000 ml @ 0 mls/hr Q0M IV Last administered on 08/12/16 14:35; Start 08/12/16 at 14:23; Stop 08/13/16 at 02:22; Status DC Lidocaine HCl 2 ml 1X PRN PRN ID IV START; Start 08/12/16 at 14:30; Stop at 14:29; Status DC Hydromorphone HCl (Dilaudid) 0.5 mg PRN Q10MIN PRN IV SEV PAIN,Second choice; Start 08/12/16 at 14:30; Stop 08/13/16 at 14:29; Status DC Prochlorperazine Edisylate (Compazine) 5 mg PACU PRN PRN IV NAUSEA; Start at 14:30; Stop 08/13/16 at 14:29; Status DC Losartan Potassium (Cozaar) 100 mg DAILY PO Last administered on 08/14/16 08: 48; Start 08/12/16 at 17:00 Hydrochlorothiazide (Microzide) 12.5 mg DAILY PO Last administered on 08:48; Start 08/12/16 at 17:00 Acetaminophen/ Hydrocodone Bitart (Lortab 5/325) 1 tab PRN Q4HRS PRN PO PAIN Last administered on 08/13/16 16:51; Start 08/13/16 at 14:30 Acetaminophen/ Hydrocodone Bitart (Lortab 5/325) 2 tab PRN Q4HRS PRN PO PAIN Last administered on 08/14/16t 11:25; Start 08/13/16 at 14:30 Active Scripts Active Reported Tizanidine Hcl 4 Mg Tablet Lisinopril-Hctz 10-12.5 Mg Tab (Lisinopril/Hydrochlorothiazide) 1 Each Tablet Alprazolam 1 Mg Tablet Proair Hfa (Albuterol Sulfate) 8.5 Gm Hfa.aer.ad Tramadol Hcl 50 Mg Tablet Citalopram Hbr (Citalopram Hydrobromide) 10 Mg Tablet Valsartan-Hctz 160-12.5 Mg Tab (Valsartan/Hydrochlorothiazide) 1 Each Tablet 1 Each PO DAILY Trazodone Hcl 50 Mg Tablet 50 Mg PO HS Combivent Respimat Inhal (Ipratropium/Albuterol Sulfate) 4 Gm Aer.w.adap 2 Inh IH QID Albuterol Sulfate Hfa Inhaler (Albuterol Sulfate) 8.5 Gm Hfa.aer.ad 8.5 Gm IH PRN Xanax (Alprazolam) 1 Mg Tablet 0.5 Mg PO TID PRN Allergies Allergies: Coded Allergies: amlodipine (Verified Adverse Reaction, Intermediate, Swelling, 08/12/16) Vitals VITALS Vital Signs Date Time Temp Pulse Resp B/P Pulse Ox O2 Delivery O2 Flow Rate FiO2 08/14/16 13:12 Nasal Cannula 5.0 08/14/16 11:25 24 89 08/14/16 11:00 97.5 131 155/100 97.5 Labs Labs Laboratory Tests Test 08/13/16 08:00 08/14/16 05:20 O2 Saturation 94% (92-99) Arterial Blood pH 7.39 (7.35-7.45) Arterial Blood pCO2 at Patient Temp 47mmHg (35-46) Arterial Blood pO2 at Patient Temp 68mmHg (65-108) Arterial Blood HCO3 28mmol/L (21-28) Arterial Blood Base Excess 2mmol/L (-3-3) FiO2 30 White Blood Count 10.6x10^3/uL (4.0-11.0) Red Blood Count 3.11x10^6/uL (3.50-5.40) Hemoglobin 9.2g/dL (12.0-15.5) Hematocrit 28.4% (36.0-47.0) Mean Corpuscular Volume 91fL (79-100) Mean Corpuscular Hemoglobin 30pg (25-35) Mean Corpuscular Hemoglobin Concent 33g/dL (31-37) Red Cell Distribution Width 15.3% (11.5-14.5) Platelet Count 217x10^3/uL (140-400) Creatine Kinase 96U/L (26-192) Vitamin B12 Level 363pg/mL (247-911) Thyroid Stimulating Hormone (TSH) 1.142uIU/mL (0.358-3.74) Laboratory Tests Test 08/14/16 05:20 White Blood Count 10.6x10^3/uL (4.0-11.0) Red Blood Count 3.11x10^6/uL (3.50-5.40) Hemoglobin 9.2g/dL (12.0-15.5) Hematocrit 28.4% (36.0-47.0) Mean Corpuscular Volume 91fL (79-100) Mean Corpuscular Hemoglobin 30pg (25-35) Mean Corpuscular Hemoglobin Concent 33g/dL (31-37) Red Cell Distribution Width 15.3% (11.5-14.5) Platelet Count 217x10^3/uL (140-400) Creatine Kinase 96U/L (26-192) Vitamin B12 Level 363pg/mL (247-911) Thyroid Stimulating Hormone (TSH) 1.142uIU/mL (0.358-3.74) MARÍA ELENA BLUNT MD Aug 14, 2016 15:49
--- NOTE | 2016-08-14 16:19 | PDOC ---
PULMONARY PROGRESS NOTES Subjective s/p left hip surgery came off vent NO KRISTAL Vitals Vital Signs Date Time Temp Pulse Resp B/P Pulse Ox O2 Delivery O2 Flow Rate FiO2 08/14/16 16:12 Nasal Cannula 5.0 08/14/16 15:00 97.8 114 18 148/89 96 97.8 General: Alert, No acute distress Lungs: Other (decrease bs) Cardiovascular: S1 Abdomen: Soft, Non-tender Neuro Exam: Alert Extremities: No Edema Labs Laboratory Tests Test 08/13/16 08:00 08/14/16 05:20 O2 Saturation 94% (92-99) Arterial Blood pH 7.39 (7.35-7.45) Arterial Blood pCO2 at Patient Temp 47mmHg (35-46) Arterial Blood pO2 at Patient Temp 68mmHg (65-108) Arterial Blood HCO3 28mmol/L (21-28) Arterial Blood Base Excess 2mmol/L (-3-3) FiO2 30 White Blood Count 10.6x10^3/uL (4.0-11.0) Red Blood Count 3.11x10^6/uL (3.50-5.40) Hemoglobin 9.2g/dL (12.0-15.5) Hematocrit 28.4% (36.0-47.0) Mean Corpuscular Volume 91fL (79-100) Mean Corpuscular Hemoglobin 30pg (25-35) Mean Corpuscular Hemoglobin Concent 33g/dL (31-37) Red Cell Distribution Width 15.3% (11.5-14.5) Platelet Count 217x10^3/uL (140-400) Creatine Kinase 96U/L (26-192) Vitamin B12 Level 363pg/mL (247-911) Thyroid Stimulating Hormone (TSH) 1.142uIU/mL (0.358-3.74) Laboratory Tests Test 08/14/16 05:20 White Blood Count 10.6x10^3/uL (4.0-11.0) Red Blood Count 3.11x10^6/uL (3.50-5.40) Hemoglobin 9.2g/dL (12.0-15.5) Hematocrit 28.4% (36.0-47.0) Mean Corpuscular Volume 91fL (79-100) Mean Corpuscular Hemoglobin 30pg (25-35) Mean Corpuscular Hemoglobin Concent 33g/dL (31-37) Red Cell Distribution Width 15.3% (11.5-14.5) Platelet Count 217x10^3/uL (140-400) Creatine Kinase 96U/L (26-192) Vitamin B12 Level 363pg/mL (247-911) Thyroid Stimulating Hormone (TSH) 1.142uIU/mL (0.358-3.74) Medications Active Scripts Medications Dose Route/Sig Days Date Category Tizanidine Hcl 4 Mg Tablet 08/13/16 Reported Lisinopril-Hctz 10-12.5 Mg Tab (Lisinopril/Hydrochlorothiazide) 1 Each Tablet 08/13/16 Reported Alprazolam 1 Mg Tablet 08/13/16 Reported Proair Hfa (Albuterol Sulfate) 8.5 Gm Hfa.aer.ad 08/13/16 Reported Tramadol Hcl 50 Mg Tablet 08/13/16 Reported Citalopram Hbr (Citalopram Hydrobromide) 10 Mg Tablet 08/13/16 Reported Valsartan-Hctz 160-12.5 Mg Tab (Valsartan/Hydrochlorothiazide) 1 Each Tablet 1 Each PO DAILY 08/12/16 Reported Trazodone Hcl 50 Mg Tablet 50 Mg PO HS 08/12/16 Reported Combivent Respimat Inhal (Ipratropium/Albuterol Sulfate) 4 Gm Aer.w.adap 2 Inh IH QID 08/12/16 Reported Albuterol Sulfate Hfa Inhaler (Albuterol Sulfate) 8.5 Gm Hfa.aer.ad 8.5 Gm IH PRN 08/28/13 Reported Xanax (Alprazolam) 1 Mg Tablet 0.5 Mg PO TID PRN 08/28/13 Reported Impression . 1. Acute on chronic hypercapnic respiratory failure secondary to acute exacerbation of chronic obstructive pulmonary disease and effect of narcotics. improved. 2. History of severe oxygen dependent chronic obstructive airway disease. She is normally on 4 liters during the day and Trilogy vent at night. 3. Sinus tachycardia, most likely triggered by pain, resolved 4. Left hip fracture. s/p surgery 08/12 Plan . 1. Nasal canula/ BIPAP or home trilogy qhs 2. Minimized the use of narcotics and benzodiazepines. 3. Continue with DuoNeb. 4. SCDs for Deep venous thrombosis prophylaxis. 5. Follow ortho recommendations d/w family IVANIA MARIN MD Aug 14, 2016 16:19
[2016-08-14 19:00] VITALS: BP 156/98
[2016-08-14] MEDS: FENTANYL PF 100 MCG/2 ML VIAL. IV PRN (19:30)
[2016-08-14 23:00] VITALS: BP 162/96
[2016-08-15 03:00] VITALS: BP 135/90
[2016-08-15] MEDS: LORAZEPAM 2 MG/ML VIAL IV PRN ×3 (04:59→22:32)
[2016-08-15] MEDS: IPRATRPIUM/ALBUTEROL 0.5/2.5MG 3 ML NEBU. NEB PRN ×2 (05:08→11:59)
[2016-08-15 05:33] LABS: HEMATOCRIT 30.4 % (36.0-47.0); HEMOGLOBIN 9.8 g/dL (12.0-15.5); RED BLOOD COUNT 3.36 x10^6/uL (3.50-5.40); RED CELL DISTRIBUTION WIDTH 15.1 % (11.5-14.5)
[2016-08-15 05:47] LABS: CALCIUM 8.7 mg/dL (8.5-10.1); CREATININE 1.1 mg/dL (0.6-1.0); GFR 49.4; POTASSIUM 3.9 mmol/L (3.5-5.1)
[2016-08-15 07:00] VITALS: BP 152/90
[2016-08-15] MEDS: HYDROCODONE/APAP 5/325MG TABLET. PO PRN ×4 (07:20→22:31)
[2016-08-15] MEDS: HYDROCHLOROTHIAZIDE 12.5 MG CAPSULE. PO SCH (09:19)
[2016-08-15] MEDS: LOSARTAN POTASSIUM 50 MG TABLET. PO SCH (09:20)
[2016-08-15 11:00] VITALS: BP 134/78
--- NOTE | 2016-08-15 11:44 | PDOC ---
GENERAL General: vss and afebrile. awake and alert and oriented today. wants to go home with son instead of snu but explained that will be a therapy decision. breathing and lungs at baseline. heart with tachycardia which is also patient baseline. continue same. Problems: VITAL SIGNS Vital Signs: Vital Signs Date Time Temp Pulse Resp B/P Pulse Ox O2 Delivery O2 Flow Rate FiO2 08/15/16 11:00 98.1 107 20 134/78 95 Nasal Cannula 4.0 98.1 I & O I & O Intake and Output 08/15/16 07:00 Intake Total 900 ml Output Total 700 ml Balance 200 ml Intake Oral 900 ml Output Urine Total 700 ml # Voids 1 # Bowel Movements 1 ALLERGIES Allergies: Allergies Coded Allergies Type Severity Reaction Last Updated Verified amlodipine Adverse Reaction Intermediate Swelling 08/12/16 Yes MEDS Medications: Current Medications Medications (Trade) Dose Ordered Sig/Chrissie Start Time Stop Time Status Last Admin Dose Admin Acetaminophen/ Hydrocodone Bitart (Lortab 5/325) 2 tab PRN Q4HRS PRN 08/13/16 14:30 08/15/16 07:20 2 TAB Albuterol/ Ipratropium (Duoneb) 3 ml 1X ONCE 08/11/16 16:00 08/11/16 16:01 DC 08/11/16 16:34 3 ML Albuterol/ Ipratropium 3 ml 3 ml PRN Q4HRS PRN 08/11/16 17:30 08/15/16 05:08 3 ML Cefazolin Sodium (Ancef 1gm Ivpb For Omni) 50 ml @ As Directed STK-MED ONCE 08/12/16 12:18 08/12/16 12:19 DC Dexamethasone Sodium Phosphate (Decadron) 20 mg STK-MED ONCE 08/12/16 10:16 08/12/16 10:17 DC Fentanyl Citrate (Fentanyl 2ml Vial) 50 mcg PRN Q5MIN PRN 08/12/16 14:30 08/13/16 14:29 DC Hydrochlorothiazide (Microzide) 12.5 mg DAILY 08/12/16 17:00 08/15/16 09:19 12.5 MG Hydromorphone HCl (Dilaudid) 0.5 mg PRN Q10MIN PRN 08/12/16 14:30 08/13/16 14:29 DC Lactated Ringer's (Iv Lactated Ringers) 1,000 ml @ 0 mls/hr Q0M 08/12/16 14:23 08/13/16 02:22 DC 08/12/16 14:35 125 MLS/HR Lidocaine HCl 2 ml 1X PRN PRN 08/12/16 14:30 08/13/16 14:29 DC Lorazepam 0.5 mg 0.5 mg PRN Q4HRS PRN 08/11/16 20:45 08/15/16 04:59 0.5 MG Losartan Potassium (Cozaar) 100 mg DAILY 08/12/16 17:00 08/15/16 09:20 100 MG Methylprednisolone Sodium Succinate (Solu-Medrol 125mg Vial) 125 mg 1X ONCE 08/11/16 16:00 08/11/16 16:01 DC 08/11/16 16:07 125 MG Morphine Sulfate 1 mg 1 mg PRN Q10MIN PRN 08/12/16 14:30 08/13/16 14:29 DC Ondansetron HCl 4 mg 4 mg STK-MED ONCE 08/12/16 10:16 08/12/16 10:17 DC Phenylephrine HCl 1 mg STK-MED ONCE 08/12/16 12:18 08/12/16 12:19 DC Potassium Chloride/Sodium Chloride (KCl 20 Meq-NS 1,000 ml Iv Soln) 1,000 ml @ 100 mls/hr 1X ONCE 08/11/16 18:00 08/12/16 03:59 DC 08/11/16 19:41 100 MLS/HR Prochlorperazine Edisylate (Compazine) 5 mg PACU PRN PRN 08/12/16 14:30 08/13/16 14:29 DC Propofol (Diprivan) 20 ml @ As Directed STK-MED ONCE 08/12/16 10:16 08/12/16 10:17 DC Sevoflurane (Ultane) 60 ml STK-MED ONCE 08/12/16 13:22 08/12/16 13:23 DC Sodium Chloride (Iv Sodium Chloride 0.9% 500ml Bag) 500 ml @ 500 mls/hr 1X ONCE 08/12/16 10:02 08/12/16 11:01 DC 08/12/16 10:04 500 MLS/HR Succinylcholine Chloride 200 mg 200 mg STK-MED ONCE 08/12/16 10:16 08/12/16 10:17 DC LAB Lab: Laboratory Tests Test 08/15/16 04:58 White Blood Count 13.0x10^3/uL (4.0-11.0) Red Blood Count 3.36x10^6/uL (3.50-5.40) Hemoglobin 9.8g/dL (12.0-15.5) Hematocrit 30.4% (36.0-47.0) Mean Corpuscular Volume 90fL (79-100) Mean Corpuscular Hemoglobin 29pg (25-35) Mean Corpuscular Hemoglobin Concent 32g/dL (31-37) Red Cell Distribution Width 15.1% (11.5-14.5) Platelet Count 286x10^3/uL (140-400) Sodium Level 140mmol/L (136-145) Potassium Level 3.9mmol/L (3.5-5.1) Chloride Level 101mmol/L (98-107) Carbon Dioxide Level 30mmol/L (21-32) Anion Gap 9 (6-14) Blood Urea Nitrogen 29mg/dL (7-20) Creatinine 1.1mg/dL (0.6-1.0) Estimated GFR (Cockcroft-Gault) 49.4 Glucose Level 151mg/dL (70-99) Calcium Level 8.7mg/dL (8.5-10.1) Nutrition Consultation Dietary Evaluation: Recommendations by RD: Increase Calorie Intake, Protein supplementation Comments: boost plus tid Expected Outcomes/Goals: to meet > 75% est nutr needs Malnutrition Findings: Body Fat Depletion (Non Severe: Mild Depletion Weight Status: Underweight JAMIN EVANS MD Aug 15, 2016 11:44
--- NOTE | 2016-08-15 12:10 | PDOC ---
PULMONARY PROGRESS NOTES Subjective s/p left hip surgery came off vent NO KRISTAL Vitals Vital Signs Date Time Temp Pulse Resp B/P Pulse Ox O2 Delivery O2 Flow Rate FiO2 08/15/16 11:59 Nasal Cannula 5.0 08/15/16 11:42 20 08/15/16 11:00 98.1 107 134/78 95 98.1 General: Alert, No acute distress Lungs: Other (decrease bs) Cardiovascular: S1 Abdomen: Soft, Non-tender Neuro Exam: Alert Extremities: No Edema Labs Laboratory Tests Test 08/14/16 05:20 08/15/16 04:58 White Blood Count 10.6x10^3/uL (4.0-11.0) 13.0x10^3/uL (4.0-11.0) Red Blood Count 3.11x10^6/uL (3.50-5.40) 3.36x10^6/uL (3.50-5.40) Hemoglobin 9.2g/dL (12.0-15.5) 9.8g/dL (12.0-15.5) Hematocrit 28.4% (36.0-47.0) 30.4% (36.0-47.0) Mean Corpuscular Volume 91fL (79-100) 90fL (79-100) Mean Corpuscular Hemoglobin 30pg (25-35) 29pg (25-35) Mean Corpuscular Hemoglobin Concent 33g/dL (31-37) 32g/dL (31-37) Red Cell Distribution Width 15.3% (11.5-14.5) 15.1% (11.5-14.5) Platelet Count 217x10^3/uL (140-400) 286x10^3/uL (140-400) Creatine Kinase 96U/L (26-192) Vitamin B12 Level 363pg/mL (247-911) Thyroid Stimulating Hormone (TSH) 1.142uIU/mL (0.358-3.74) Sodium Level 140mmol/L (136-145) Potassium Level 3.9mmol/L (3.5-5.1) Chloride Level 101mmol/L (98-107) Carbon Dioxide Level 30mmol/L (21-32) Anion Gap 9 (6-14) Blood Urea Nitrogen 29mg/dL (7-20) Creatinine 1.1mg/dL (0.6-1.0) Estimated GFR (Cockcroft-Gault) 49.4 Glucose Level 151mg/dL (70-99) Calcium Level 8.7mg/dL (8.5-10.1) Laboratory Tests Test 08/15/16 04:58 White Blood Count 13.0x10^3/uL (4.0-11.0) Red Blood Count 3.36x10^6/uL (3.50-5.40) Hemoglobin 9.8g/dL (12.0-15.5) Hematocrit 30.4% (36.0-47.0) Mean Corpuscular Volume 90fL (79-100) Mean Corpuscular Hemoglobin 29pg (25-35) Mean Corpuscular Hemoglobin Concent 32g/dL (31-37) Red Cell Distribution Width 15.1% (11.5-14.5) Platelet Count 286x10^3/uL (140-400) Sodium Level 140mmol/L (136-145) Potassium Level 3.9mmol/L (3.5-5.1) Chloride Level 101mmol/L (98-107) Carbon Dioxide Level 30mmol/L (21-32) Anion Gap 9 (6-14) Blood Urea Nitrogen 29mg/dL (7-20) Creatinine 1.1mg/dL (0.6-1.0) Estimated GFR (Cockcroft-Gault) 49.4 Glucose Level 151mg/dL (70-99) Calcium Level 8.7mg/dL (8.5-10.1) Medications Active Scripts Medications Dose Route/Sig Days Date Category Tizanidine Hcl 4 Mg Tablet 08/13/16 Reported Lisinopril-Hctz 10-12.5 Mg Tab (Lisinopril/Hydrochlorothiazide) 1 Each Tablet 08/13/16 Reported Alprazolam 1 Mg Tablet 08/13/16 Reported Proair Hfa (Albuterol Sulfate) 8.5 Gm Hfa.aer.ad 08/13/16 Reported Tramadol Hcl 50 Mg Tablet 08/13/16 Reported Citalopram Hbr (Citalopram Hydrobromide) 10 Mg Tablet 08/13/16 Reported Valsartan-Hctz 160-12.5 Mg Tab (Valsartan/Hydrochlorothiazide) 1 Each Tablet 1 Each PO DAILY 08/12/16 Reported Trazodone Hcl 50 Mg Tablet 50 Mg PO HS 08/12/16 Reported Combivent Respimat Inhal (Ipratropium/Albuterol Sulfate) 4 Gm Aer.w.adap 2 Inh IH QID 08/12/16 Reported Albuterol Sulfate Hfa Inhaler (Albuterol Sulfate) 8.5 Gm Hfa.aer.ad 8.5 Gm IH PRN 08/28/13 Reported Xanax (Alprazolam) 1 Mg Tablet 0.5 Mg PO TID PRN 08/28/13 Reported Impression . 1. Acute on chronic hypercapnic respiratory failure secondary to acute exacerbation of chronic obstructive pulmonary disease and effect of narcotics. improved. 2. History of severe oxygen dependent chronic obstructive airway disease. She is normally on 4 liters during the day and Trilogy vent at night. 3. Sinus tachycardia, most likely triggered by pain, resolved 4. Left hip fracture. s/p surgery 08/12 Plan . 1. Nasal canula/ BIPAP or home trilogy qhs 2. Minimized the use of narcotics and benzodiazepines. 3. Continue with DuoNeb. 4. SCDs for Deep venous thrombosis prophylaxis. 5. Follow ortho recommendations d/w family IVANIA MARIN MD Aug 15, 2016 12:10
[2016-08-15] MEDS: IPRATRPIUM/ALBUTEROL 0.5/2.5MG 3 ML NEBU. NEB SCH ×4 (13:00→21:16)
--- NOTE | 2016-08-15 13:04 | PDOC ---
PROGRESS NOTES Assessment Problems Medical Problems: (1) Acute and chronic respiratory failure ([id number]) Status: Acute (2) Closed left femoral fracture Status: Acute (3) COPD exacerbation Status: Acute Metabolic encephalopathy. Status-post left fermoral neck subcapital fracture Was intubated, has COPD on O2 at home. Goal Plan No additional neurological studies needed Subjective She wants to go home with her son rather than to rehabilitation. Objective Vital Signs Date Time Temp Pulse Resp B/P Pulse Ox O2 Delivery O2 Flow Rate FiO2 08/15/16 11:59 Nasal Cannula 5.0 08/15/16 11:42 20 08/15/16 11:00 98.1 107 134/78 95 98.1 Intake and Output 08/15/16 07:00 Intake Total 900 ml Output Total 700 ml Balance 200 ml Intake Oral 900 ml Output Urine Total 700 ml # Voids 1 # Bowel Movements 1 PHYSICAL EXAM Alert. Oriented to month, year, place and person. PERRL. EOMI. CN: no focal findings. Muscle tone: normal. Muscle strength: 5/5, has some right foot pain DTR: 2+ Plantar reflex: flexor Gait: not examined in bed. Sensory exam: no abnormal findings. No cerebellar signs elicited. Review of Relevant I have reviewed the following items pako (where applicable) has been applied. Labs Laboratory Tests Test 08/14/16 05:20 08/15/16 04:58 White Blood Count 10.6x10^3/uL (4.0-11.0) 13.0x10^3/uL (4.0-11.0) Red Blood Count 3.11x10^6/uL (3.50-5.40) 3.36x10^6/uL (3.50-5.40) Hemoglobin 9.2g/dL (12.0-15.5) 9.8g/dL (12.0-15.5) Hematocrit 28.4% (36.0-47.0) 30.4% (36.0-47.0) Mean Corpuscular Volume 91fL (79-100) 90fL (79-100) Mean Corpuscular Hemoglobin 30pg (25-35) 29pg (25-35) Mean Corpuscular Hemoglobin Concent 33g/dL (31-37) 32g/dL (31-37) Red Cell Distribution Width 15.3% (11.5-14.5) 15.1% (11.5-14.5) Platelet Count 217x10^3/uL (140-400) 286x10^3/uL (140-400) Creatine Kinase 96U/L (26-192) Vitamin B12 Level 363pg/mL (247-911) Thyroid Stimulating Hormone (TSH) 1.142uIU/mL (0.358-3.74) Sodium Level 140mmol/L (136-145) Potassium Level 3.9mmol/L (3.5-5.1) Chloride Level 101mmol/L (98-107) Carbon Dioxide Level 30mmol/L (21-32) Anion Gap 9 (6-14) Blood Urea Nitrogen 29mg/dL (7-20) Creatinine 1.1mg/dL (0.6-1.0) Estimated GFR (Cockcroft-Gault) 49.4 Glucose Level 151mg/dL (70-99) Calcium Level 8.7mg/dL (8.5-10.1) Laboratory Tests Test 08/15/16 04:58 White Blood Count 13.0x10^3/uL (4.0-11.0) Red Blood Count 3.36x10^6/uL (3.50-5.40) Hemoglobin 9.8g/dL (12.0-15.5) Hematocrit 30.4% (36.0-47.0) Mean Corpuscular Volume 90fL (79-100) Mean Corpuscular Hemoglobin 29pg (25-35) Mean Corpuscular Hemoglobin Concent 32g/dL (31-37) Red Cell Distribution Width 15.1% (11.5-14.5) Platelet Count 286x10^3/uL (140-400) Sodium Level 140mmol/L (136-145) Potassium Level 3.9mmol/L (3.5-5.1) Chloride Level 101mmol/L (98-107) Carbon Dioxide Level 30mmol/L (21-32) Anion Gap 9 (6-14) Blood Urea Nitrogen 29mg/dL (7-20) Creatinine 1.1mg/dL (0.6-1.0) Estimated GFR (Cockcroft-Gault) 49.4 Glucose Level 151mg/dL (70-99) Calcium Level 8.7mg/dL (8.5-10.1) Microbiology 08/11/16 Blood Culture - Preliminary, Resulted NO GROWTH AFTER 3 DAYS Medications Current Medications Albuterol/ Ipratropium (Duoneb) 3 ml 1X ONCE NEB Last administered on 16:34; Start 08/11/16 at 16:00; Stop 08/11/16 at 16:01; Status DC Methylprednisolone Sodium Succinate (Solu-Medrol 125mg Vial) 125 mg 1X ONCE IV Last administered on 08/11/16 16:07; Start 08/11/16 at 16:00; Stop 08/11/16 at 16:01; Status DC Fentanyl Citrate (Fentanyl 2ml Vial) 25 mcg 1X ONCE IV Last administered on 16:26; Start 08/11/16 at 16:30; Stop 08/11/16 at 16:31; Status DC Fentanyl Citrate (Fentanyl 2ml Vial) 100 mcg STK-MED ONCE .ROUTE ; Start at 16:22; Stop 08/11/16 at 16:23; Status DC Albuterol/ Ipratropium 3 ml 3 ml PRN Q4HRS PRN NEB dysnea Last administered on 08/15/16 11:59; Start 08/11/16 at 17:30 Potassium Chloride/Sodium Chloride (KCl 20 Meq-NS 1,000 ml Iv Soln) 1,000 ml @ 100 mls/hr 1X ONCE IV Last administered on 08/11/16 19:41; Start 08/11/16 at 18 :00; Stop 08/12/16 at 03:59; Status DC Fentanyl Citrate 25 mcg 25 mcg PRN Q2HR PRN IV PAIN Last administered on 19:30; Start 08/11/16 at 18:30 Sodium Chloride (Iv Sodium Chloride 0.9% 500ml Bag) 500 ml @ 500 mls/hr 1X ONCE IV Last administered on 08/11/16 18:35; Start 08/11/16 at 18:45; Stop at 19:44; Status DC Lorazepam 0.5 mg 0.5 mg PRN Q4HRS PRN IV ANXIETY / AGITATION Last administered on 08/15/16 04:59; Start 08/11/16 at 20:45 Sodium Chloride 250 ml @ 250 mls/hr 1X ONCE IV ; Start 08/12/16 at 10:00; Stop 08/12/16 at 10:02; Status DC Sodium Chloride (Iv Sodium Chloride 0.9% 500ml Bag) 500 ml @ 500 mls/hr 1X ONCE IV Last administered on 08/12/16t 10:04; Start 08/12/16 at 10:02; Stop at 11:01; Status DC Dexamethasone Sodium Phosphate (Decadron) 20 mg STK-MED ONCE .ROUTE ; Start 08/12 at 10:16; Stop 08/12/16 at 10:17; Status DC Ondansetron HCl 4 mg 4 mg STK-MED ONCE .ROUTE ; Start 08/12/16 at 10:16; Stop 08/12/16 at 10:17; Status DC Propofol (Diprivan) 20 ml @ As Directed STK-MED ONCE IV ; Start 08/12/16 at 10:16 ; Stop 08/12/16 at 10:17; Status DC Lidocaine HCl 100 mg STK-MED ONCE .ROUTE ; Start 08/12/16 at 10:16; Stop 08/12/16 at 10:17; Status DC Succinylcholine Chloride 200 mg 200 mg STK-MED ONCE .ROUTE ; Start 08/12/16 at 10 :16; Stop 08/12/16 at 10:17; Status DC Cefazolin Sodium (Ancef 1gm Ivpb For Omni) 50 ml @ As Directed STK-MED ONCE IV ; Start 08/12/16 at 12:18; Stop 08/12/16 at 12:19; Status DC Phenylephrine HCl 1 mg STK-MED ONCE IV ; Start 08/12/16 at 12:18; Stop 08/12/16 at 12:19; Status DC Sevoflurane (Ultane) 60 ml STK-MED ONCE IH ; Start 08/12/16 at 13:22; Stop at 13:23; Status DC Fentanyl Citrate (Fentanyl 2ml Vial) 100 mcg STK-MED ONCE .ROUTE ; Start at 13:22; Stop 08/12/16 at 13:23; Status DC Fentanyl Citrate (Fentanyl 2ml Vial) 25 mcg PRN Q5MIN PRN IV MILD PAIN; Start 08/12/16 at 14:30; Stop 08/13/16 at 14:29; Status DC Fentanyl Citrate (Fentanyl 2ml Vial) 50 mcg PRN Q5MIN PRN IV MODERATE PAIN; Start 08/12/16 at 14:30; Stop 08/13/16 at 14:29; Status DC Morphine Sulfate 1 mg 1 mg PRN Q10MIN PRN IV SEVERE PAIN; Start 08/12/16 at 14: 30; Stop 08/13/16 at 14:29; Status DC Lactated Ringer's (Iv Lactated Ringers) 1,000 ml @ 0 mls/hr Q0M IV Last administered on 08/12/16 14:35; Start 08/12/16 at 14:23; Stop 08/13/16 at 02:22; Status DC Lidocaine HCl 2 ml 1X PRN PRN ID IV START; Start 08/12/16 at 14:30; Stop at 14:29; Status DC Hydromorphone HCl (Dilaudid) 0.5 mg PRN Q10MIN PRN IV SEV PAIN,Second choice; Start 08/12/16 at 14:30; Stop 08/13/16 at 14:29; Status DC Prochlorperazine Edisylate (Compazine) 5 mg PACU PRN PRN IV NAUSEA; Start at 14:30; Stop 08/13/16 at 14:29; Status DC Losartan Potassium (Cozaar) 100 mg DAILY PO Last administered on 08/15/16 09: 20; Start 08/12/16 at 17:00 Hydrochlorothiazide (Microzide) 12.5 mg DAILY PO Last administered on 09:19; Start 08/12/16 at 17:00 Acetaminophen/ Hydrocodone Bitart (Lortab 5/325) 1 tab PRN Q4HRS PRN PO PAIN Last administered on 08/13/16 16:51; Start 08/13/16 at 14:30 Acetaminophen/ Hydrocodone Bitart (Lortab 5/325) 2 tab PRN Q4HRS PRN PO PAIN Last administered on 08/15/16 11:42; Start 08/13/16 at 14:30 Albuterol/ Ipratropium (Duoneb) 3 ml RTQID NEB ; Start 08/15/16 at 13:00 Active Scripts Active Reported Tizanidine Hcl 4 Mg Tablet Lisinopril-Hctz 10-12.5 Mg Tab (Lisinopril/Hydrochlorothiazide) 1 Each Tablet Alprazolam 1 Mg Tablet Proair Hfa (Albuterol Sulfate) 8.5 Gm Hfa.aer.ad Tramadol Hcl 50 Mg Tablet Citalopram Hbr (Citalopram Hydrobromide) 10 Mg Tablet Valsartan-Hctz 160-12.5 Mg Tab (Valsartan/Hydrochlorothiazide) 1 Each Tablet 1 Each PO DAILY Trazodone Hcl 50 Mg Tablet 50 Mg PO HS Combivent Respimat Inhal (Ipratropium/Albuterol Sulfate) 4 Gm Aer.w.adap 2 Inh IH QID Albuterol Sulfate Hfa Inhaler (Albuterol Sulfate) 8.5 Gm Hfa.aer.ad 8.5 Gm IH PRN Xanax (Alprazolam) 1 Mg Tablet 0.5 Mg PO TID PRN Vitals/I & O Vital Sign - Last 24 Hours 08/14/16 08/14/16 08/14/16 08/14/16 15:00 16:12 19:00 19:30 Temp 97.8 97.7 97.8 97.7 Pulse 114 93 Resp 18 18 20 B/P 148/89 156/98 Pulse Ox 96 97 96 O2 Delivery Nasal Cannula Nasal Cannula Nasal Cannula Nasal Cannula O2 Flow Rate 4.0 5.0 4.0 5.0 08/14/16 08/14/16 08/14/16 08/14/16 20:00 21:29 23:00 23:02 Temp 98.2 98.2 Pulse 115 Resp 20 20 18 B/P 162/96 Pulse Ox 94 96 95 94 O2 Delivery Nasal Cannula Nasal Cannula Nasal Cannula Nasal Cannula O2 Flow Rate 5.0 5.0 4.0 5.0 08/14/16 08/15/16 08/15/16 08/15/16 23:08 00:51 03:00 05:08 Temp 98.6 98.6 Pulse 112 Resp 18 B/P 135/90 Pulse Ox 97 O2 Delivery BiPAP/CPAP BiPAP/CPAP Nasal Cannula BiPAP/CPAP O2 Flow Rate 4.0 08/15/16 08/15/16 08/15/16 08/15/16 07:00 07:20 08:00 08:20 Temp 97.3 97.3 Pulse 123 Resp 22 18 18 B/P 152/90 Pulse Ox 93 93 O2 Delivery Nasal Cannula Nasal Cannula Nasal Cannula Nasal Cannula O2 Flow Rate 4.0 4.0 4.0 4.0 08/15/16 08/15/16 08/15/16 08/15/16 09:20 11:00 11:42 11:59 Temp 98.1 98.1 Pulse 123 107 Resp 20 20 B/P 152/90 134/78 Pulse Ox 95 O2 Delivery Nasal Cannula Nasal Cannula O2 Flow Rate 4.0 4.0 5.0 Intake and Output 08/14/16 08/14/16 08/15/16 15:00 23:00 07:00 Intake Total 900 ml Output Total 700 ml Balance -700 ml [address] yesterday: 1. No acute intracranial findings. 2. Moderate atrophy and chronic small vessel ischemic white matter change. JOI CORRALES MD Aug 15, 2016 13:04
[2016-08-15] MEDS: FENTANYL PF 100 MCG/2 ML VIAL. IV PRN (14:01)
[2016-08-15 14:39] VITALS: BP 145/86
[2016-08-15 19:00] VITALS: BP 156/93
[2016-08-15 23:00] VITALS: BP 140/89
[2016-08-16 03:00] VITALS: BP 170/96
[2016-08-16] MEDS: HYDROCODONE/APAP 5/325MG TABLET. PO PRN ×5 (03:49→23:17)
[2016-08-16 07:00] VITALS: BP 156/90
[2016-08-16] MEDS: IPRATRPIUM/ALBUTEROL 0.5/2.5MG 3 ML NEBU. NEB SCH ×4 (08:06→19:40)
[2016-08-16] MEDS: HYDROCHLOROTHIAZIDE 12.5 MG CAPSULE. PO SCH (09:11)
[2016-08-16] MEDS: LOSARTAN POTASSIUM 50 MG TABLET. PO SCH (09:11)
--- NOTE | 2016-08-16 10:31 | PDOC ---
GENERAL General: vss and afebrile. awake and alert and mentally normal which is baseline. still refusing snu and wanting to go home with home health. will see if therapy thinks same is safe. chest with decreased breath sounds but clear and baseline tachycardia. expect home or snu tomorrow. Problems: VITAL SIGNS Vital Signs: Vital Signs Date Time Temp Pulse Resp B/P Pulse Ox O2 Delivery O2 Flow Rate FiO2 08/16/16 09:14 Nasal Cannula 5.0 08/16/16 09:11 118 156/90 08/16/16 08:06 94 08/16/16 07:00 96.3 24 96.3 I & O I & O Intake and Output 08/16/16 07:00 Intake Total 940 ml Output Total 1950 ml Balance -1010 ml Intake Oral 940 ml Output Urine Total 1950 ml ALLERGIES Allergies: Allergies Coded Allergies Type Severity Reaction Last Updated Verified No Known Medication Allergies Allergy Unknown 08/15/16 Yes amlodipine Adverse Reaction Intermediate Swelling 08/12/16 Yes MEDS Medications: Current Medications Medications (Trade) Dose Ordered Sig/Chrissie Start Time Stop Time Status Last Admin Dose Admin Acetaminophen/ Hydrocodone Bitart (Lortab 5/325) 2 tab PRN Q4HRS PRN 08/13/16 14:30 08/16/16 09:14 2 TAB Albuterol Sulfate (Ventolin Neb Soln) 3 mg PRN Q4HRS PRN 08/15/16 15:15 Albuterol/ Ipratropium (Duoneb) 3 ml RTQID 08/15/16 13:00 08/16/16 08:06 3 ML Albuterol/ Ipratropium 3 ml 3 ml PRN Q4HRS PRN 08/11/16 17:30 08/15/16 15:14 DC 08/15/16 11:59 3 ML Cefazolin Sodium (Ancef 1gm Ivpb For Omni) 50 ml @ As Directed STK-MED ONCE 08/12/16 12:18 08/12/16 12:19 DC Dexamethasone Sodium Phosphate (Decadron) 20 mg STK-MED ONCE 08/12/16 10:16 08/12/16 10:17 DC Fentanyl Citrate (Fentanyl 2ml Vial) 50 mcg PRN Q5MIN PRN 08/12/16 14:30 08/13/16 14:29 DC Hydrochlorothiazide (Microzide) 12.5 mg DAILY 08/12/16 17:00 08/16/16 09:11 12.5 MG Hydromorphone HCl (Dilaudid) 0.5 mg PRN Q10MIN PRN 08/12/16 14:30 08/13/16 14:29 DC Lactated Ringer's (Iv Lactated Ringers) 1,000 ml @ 0 mls/hr Q0M 08/12/16 14:23 08/13/16 02:22 DC 08/12/16 14:35 125 MLS/HR Lidocaine HCl 2 ml 1X PRN PRN 08/12/16 14:30 08/13/16 14:29 DC Lorazepam 0.5 mg 0.5 mg PRN Q4HRS PRN 08/11/16 20:45 08/15/16 22:32 0.5 MG Losartan Potassium (Cozaar) 100 mg DAILY 08/12/16 17:00 08/16/16 09:11 100 MG Methylprednisolone Sodium Succinate (Solu-Medrol 125mg Vial) 125 mg 1X ONCE 08/11/16 16:00 08/11/16 16:01 DC 08/11/16 16:07 125 MG Morphine Sulfate 1 mg 1 mg PRN Q10MIN PRN 08/12/16 14:30 08/13/16 14:29 DC Ondansetron HCl 4 mg 4 mg STK-MED ONCE 08/12/16 10:16 08/12/16 10:17 DC Phenylephrine HCl 1 mg STK-MED ONCE 08/12/16 12:18 08/12/16 12:19 DC Potassium Chloride/Sodium Chloride (KCl 20 Meq-NS 1,000 ml Iv Soln) 1,000 ml @ 100 mls/hr 1X ONCE 08/11/16 18:00 08/12/16 03:59 DC 08/11/16 19:41 100 MLS/HR Prochlorperazine Edisylate (Compazine) 5 mg PACU PRN PRN 08/12/16 14:30 08/13/16 14:29 DC Propofol (Diprivan) 20 ml @ As Directed STK-MED ONCE 08/12/16 10:16 08/12/16 10:17 DC Sevoflurane (Ultane) 60 ml STK-MED ONCE 08/12/16 13:22 08/12/16 13:23 DC Sodium Chloride (Iv Sodium Chloride 0.9% 500ml Bag) 500 ml @ 500 mls/hr 1X ONCE 08/12/16 10:02 08/12/16 11:01 DC 08/12/16 10:04 500 MLS/HR Succinylcholine Chloride 200 mg 200 mg STK-MED ONCE 08/12/16 10:16 08/12/16 10:17 DC LAB Lab: Laboratory Tests Test 08/15/16 21:44 Glucose (Fingerstick) 112mg/dL (70-99) Nutrition Consultation Dietary Evaluation: Recommendations by RD: Increase Calorie Intake, Protein supplementation Comments: boost plus tid Expected Outcomes/Goals: to meet > 75% est nutr needs Malnutrition Findings: Body Fat Depletion (Non Severe: Mild Depletion Weight Status: Underweight JAMIN EVANS MD Aug 16, 2016 10:31
[2016-08-16] MEDS ORDERED: CALCIUM CARBONATE 500 MG TAB.CHEW PO PRN (10:45)
[2016-08-16 11:00] VITALS: BP 142/76
--- NOTE | 2016-08-16 13:04 | PDOC ---
PROGRESS NOTES Subjective Subjective Problems overnight: Overall getting up and around well feels much better and no complaints or pain with the hip Objective Vital Signs Vital Signs Date Time Temp Pulse Resp B/P Pulse Ox O2 Delivery O2 Flow Rate FiO2 08/16/16 11:19 Nasal Cannula 5.0 08/16/16 09:11 118 156/90 08/16/16 08:06 94 08/16/16 07:00 96.3 24 96.3 Physical Exam Hip dressing clean dry and intact leg lengths equal good motion distal neurovascular status intact Labs Laboratory Tests Test 08/15/16 04:58 08/15/16 21:44 White Blood Count 13.0x10^3/uL (4.0-11.0) Red Blood Count 3.36x10^6/uL (3.50-5.40) Hemoglobin 9.8g/dL (12.0-15.5) Hematocrit 30.4% (36.0-47.0) Mean Corpuscular Volume 90fL (79-100) Mean Corpuscular Hemoglobin 29pg (25-35) Mean Corpuscular Hemoglobin Concent 32g/dL (31-37) Red Cell Distribution Width 15.1% (11.5-14.5) Platelet Count 286x10^3/uL (140-400) Sodium Level 140mmol/L (136-145) Potassium Level 3.9mmol/L (3.5-5.1) Chloride Level 101mmol/L (98-107) Carbon Dioxide Level 30mmol/L (21-32) Anion Gap 9 (6-14) Blood Urea Nitrogen 29mg/dL (7-20) Creatinine 1.1mg/dL (0.6-1.0) Estimated GFR (Cockcroft-Gault) 49.4 Glucose Level 151mg/dL (70-99) Calcium Level 8.7mg/dL (8.5-10.1) Glucose (Fingerstick) 112mg/dL (70-99) Laboratory Tests Test 08/15/16 21:44 Glucose (Fingerstick) 112mg/dL (70-99) Assessment Assessment POD# [], S/P [close reduction pinning femoral neck fracture] Problems: Plan Plan of Care Continue to mobilize as tolerated Follow-up about 10-14 days in orthopedic clinic KACIE FUENTES MD Aug 16, 2016 13:04
--- NOTE | 2016-08-16 13:45 | PDOC ---
PULMONARY PROGRESS NOTES Subjective s/p left hip surgery came off vent NO KRISTAL Vitals Vital Signs Date Time Temp Pulse Resp B/P Pulse Ox O2 Delivery O2 Flow Rate FiO2 08/16/16 11:19 Nasal Cannula 5.0 08/16/16 11:00 96.9 124 22 142/76 91 96.9 General: Alert, No acute distress Lungs: Other (decrease bs) Cardiovascular: S1 Abdomen: Soft, Non-tender Neuro Exam: Alert Extremities: No Edema Labs Laboratory Tests Test 08/15/16 04:58 08/15/16 21:44 White Blood Count 13.0x10^3/uL (4.0-11.0) Red Blood Count 3.36x10^6/uL (3.50-5.40) Hemoglobin 9.8g/dL (12.0-15.5) Hematocrit 30.4% (36.0-47.0) Mean Corpuscular Volume 90fL (79-100) Mean Corpuscular Hemoglobin 29pg (25-35) Mean Corpuscular Hemoglobin Concent 32g/dL (31-37) Red Cell Distribution Width 15.1% (11.5-14.5) Platelet Count 286x10^3/uL (140-400) Sodium Level 140mmol/L (136-145) Potassium Level 3.9mmol/L (3.5-5.1) Chloride Level 101mmol/L (98-107) Carbon Dioxide Level 30mmol/L (21-32) Anion Gap 9 (6-14) Blood Urea Nitrogen 29mg/dL (7-20) Creatinine 1.1mg/dL (0.6-1.0) Estimated GFR (Cockcroft-Gault) 49.4 Glucose Level 151mg/dL (70-99) Calcium Level 8.7mg/dL (8.5-10.1) Glucose (Fingerstick) 112mg/dL (70-99) Laboratory Tests Test 08/15/16 21:44 Glucose (Fingerstick) 112mg/dL (70-99) Medications Active Scripts Medications Dose Route/Sig Days Date Category Tizanidine Hcl 4 Mg Tablet 08/13/16 Reported Lisinopril-Hctz 10-12.5 Mg Tab (Lisinopril/Hydrochlorothiazide) 1 Each Tablet 08/13/16 Reported Alprazolam 1 Mg Tablet 08/13/16 Reported Proair Hfa (Albuterol Sulfate) 8.5 Gm Hfa.aer.ad 08/13/16 Reported Tramadol Hcl 50 Mg Tablet 08/13/16 Reported Citalopram Hbr (Citalopram Hydrobromide) 10 Mg Tablet 08/13/16 Reported Valsartan-Hctz 160-12.5 Mg Tab (Valsartan/Hydrochlorothiazide) 1 Each Tablet 1 Each PO DAILY 08/12/16 Reported Trazodone Hcl 50 Mg Tablet 50 Mg PO HS 08/12/16 Reported Combivent Respimat Inhal (Ipratropium/Albuterol Sulfate) 4 Gm Aer.w.adap 2 Inh IH QID 08/12/16 Reported Albuterol Sulfate Hfa Inhaler (Albuterol Sulfate) 8.5 Gm Hfa.aer.ad 8.5 Gm IH PRN 08/28/13 Reported Xanax (Alprazolam) 1 Mg Tablet 0.5 Mg PO TID PRN 08/28/13 Reported Impression . 1. Acute on chronic hypercapnic respiratory failure secondary to acute exacerbation of chronic obstructive pulmonary disease and effect of narcotics. improved. 2. History of severe oxygen dependent chronic obstructive airway disease. She is normally on 4 liters during the day and Trilogy vent at night. 3. Sinus tachycardia, most likely triggered by pain, resolved 4. Left hip fracture. s/p surgery 08/12 Plan . 1. Nasal canula/ BIPAP or home trilogy qhs 2. Minimized the use of narcotics and benzodiazepines. 3. Continue with DuoNeb. 4. SCDs for Deep venous thrombosis prophylaxis. 5. Follow ortho recommendations IVANIA MARIN MD Aug 16, 2016 13:45
[2016-08-16 15:00] VITALS: BP 138/73
[2016-08-16] MEDS: LORAZEPAM 2 MG/ML VIAL IV PRN ×2 (15:10→23:17)
[2016-08-16 19:00] VITALS: BP 138/76
[2016-08-16] MEDS: ALBUTEROL SULFATE 2.5 MG/3 ML NEBU. NEB PRN (22:26)
[2016-08-16 23:20] VITALS: BP 124/68
[2016-08-17] MEDS: ALBUTEROL SULFATE 2.5 MG/3 ML NEBU. NEB PRN (02:20)
[2016-08-17 03:21] VITALS: BP 132/77
[2016-08-17] MEDS: HYDROCODONE/APAP 5/325MG TABLET. PO PRN ×3 (03:24→14:07)
[2016-08-17 07:00] VITALS: BP 153/87
[2016-08-17] MEDS: IPRATRPIUM/ALBUTEROL 0.5/2.5MG 3 ML NEBU. NEB SCH ×3 (07:46→15:15)
[2016-08-17] MEDS: HYDROCHLOROTHIAZIDE 12.5 MG CAPSULE. PO SCH (09:17)
[2016-08-17] MEDS: LOSARTAN POTASSIUM 50 MG TABLET. PO SCH (09:18)
--- NOTE | 2016-08-17 09:54 | PDOC ---
PROGRESS NOTES Assessment Problems Medical Problems: (1) Acute and chronic respiratory failure ([id number]) Status: Acute (2) Closed left femoral fracture Status: Acute (3) COPD exacerbation Status: Acute Metabolic encephalopathy. Status-post left fermoral neck subcapital fracture Plan of Care: Continue current Tx, Mgmt Plan No additional neurological studies needed Subjective No complaints, wants to go home, not to rehab Objective Vital Signs Date Time Temp Pulse Resp B/P Pulse Ox O2 Delivery O2 Flow Rate FiO2 08/17/16 09:18 119 132/77 08/17/16 09:17 Nasal Cannula 5.0 08/17/16 07:46 95 08/17/16 07:00 97.5 22 97.5 Intake and Output 08/17/16 07:00 Intake Total 650 ml Output Total 375 ml Balance 275 ml Intake Oral 650 ml Output Urine Total 375 ml # Voids 3 PHYSICAL EXAM Alert. Oriented to month, year, place and person. PERRL. EOMI. CN: no focal findings. Muscle tone: normal. Muscle strength: 5/5, has some right foot pain DTR: 2+ Plantar reflex: flexor Gait: not examined in bed. Sensory exam: no abnormal findings. No cerebellar signs elicited. Review of Relevant I have reviewed the following items pako (where applicable) has been applied. Labs Laboratory Tests Test 08/15/16 21:44 08/16/16 21:26 Glucose (Fingerstick) 112mg/dL (70-99) 123mg/dL (70-99) Laboratory Tests Test 08/16/16 21:26 Glucose (Fingerstick) 123mg/dL (70-99) Microbiology 08/11/16 Blood Culture - Final, Complete NO GROWTH AFTER 5 DAYS Medications Current Medications Albuterol/ Ipratropium (Duoneb) 3 ml 1X ONCE NEB Last administered on 16:34; Start 08/11/16 at 16:00; Stop 08/11/16 at 16:01; Status DC Methylprednisolone Sodium Succinate (Solu-Medrol 125mg Vial) 125 mg 1X ONCE IV Last administered on 08/11/16 16:07; Start 08/11/16 at 16:00; Stop 08/11/16 at 16:01; Status DC Fentanyl Citrate (Fentanyl 2ml Vial) 25 mcg 1X ONCE IV Last administered on 16:26; Start 08/11/16 at 16:30; Stop 08/11/16 at 16:31; Status DC Fentanyl Citrate (Fentanyl 2ml Vial) 100 mcg STK-MED ONCE .ROUTE ; Start at 16:22; Stop 08/11/16 at 16:23; Status DC Albuterol/ Ipratropium 3 ml 3 ml PRN Q4HRS PRN NEB dysnea Last administered on 08/15/16 11:59; Start 08/11/16 at 17:30; Stop 08/15/16 at 15:14; Status DC Potassium Chloride/Sodium Chloride (KCl 20 Meq-NS 1,000 ml Iv Soln) 1,000 ml @ 100 mls/hr 1X ONCE IV Last administered on 08/11/16 19:41; Start 08/11/16 at 18 :00; Stop 08/12/16 at 03:59; Status DC Fentanyl Citrate 25 mcg 25 mcg PRN Q2HR PRN IV PAIN Last administered on 14:01; Start 08/11/16 at 18:30 Sodium Chloride (Iv Sodium Chloride 0.9% 500ml Bag) 500 ml @ 500 mls/hr 1X ONCE IV Last administered on 08/11/16 18:35; Start 08/11/16 at 18:45; Stop at 19:44; Status DC Lorazepam 0.5 mg 0.5 mg PRN Q4HRS PRN IV ANXIETY / AGITATION Last administered on 08/16/16 23:17; Start 08/11/16 at 20:45 Sodium Chloride 250 ml @ 250 mls/hr 1X ONCE IV ; Start 08/12/16 at 10:00; Stop 08/12/16 at 10:02; Status DC Sodium Chloride (Iv Sodium Chloride 0.9% 500ml Bag) 500 ml @ 500 mls/hr 1X ONCE IV Last administered on 08/12/16 10:04; Start 08/12/16 at 10:02; Stop at 11:01; Status DC Dexamethasone Sodium Phosphate (Decadron) 20 mg STK-MED ONCE .ROUTE ; Start 08/12 at 10:16; Stop 08/12/16 at 10:17; Status DC Ondansetron HCl 4 mg 4 mg STK-MED ONCE .ROUTE ; Start 08/12/16 at 10:16; Stop 08/12/16 at 10:17; Status DC Propofol (Diprivan) 20 ml @ As Directed STK-MED ONCE IV ; Start 08/12/16 at 10:16 ; Stop 08/12/16 at 10:17; Status DC Lidocaine HCl 100 mg STK-MED ONCE .ROUTE ; Start 08/12/16 at 10:16; Stop 08/12/16 at 10:17; Status DC Succinylcholine Chloride 200 mg 200 mg STK-MED ONCE .ROUTE ; Start 08/12/16 at 10 :16; Stop 08/12/16 at 10:17; Status DC Cefazolin Sodium (Ancef 1gm Ivpb For Omni) 50 ml @ As Directed STK-MED ONCE IV ; Start 08/12/16 at 12:18; Stop 08/12/16 at 12:19; Status DC Phenylephrine HCl 1 mg STK-MED ONCE IV ; Start 08/12/16 at 12:18; Stop 08/12/16 at 12:19; Status DC Sevoflurane (Ultane) 60 ml STK-MED ONCE IH ; Start 08/12/16 at 13:22; Stop at 13:23; Status DC Fentanyl Citrate (Fentanyl 2ml Vial) 100 mcg STK-MED ONCE .ROUTE ; Start at 13:22; Stop 08/12/16 at 13:23; Status DC Fentanyl Citrate (Fentanyl 2ml Vial) 25 mcg PRN Q5MIN PRN IV MILD PAIN; Start 08/12/16 at 14:30; Stop 08/13/16 at 14:29; Status DC Fentanyl Citrate (Fentanyl 2ml Vial) 50 mcg PRN Q5MIN PRN IV MODERATE PAIN; Start 08/12/16 at 14:30; Stop 08/13/16 at 14:29; Status DC Morphine Sulfate 1 mg 1 mg PRN Q10MIN PRN IV SEVERE PAIN; Start 08/12/16 at 14: 30; Stop 08/13/16 at 14:29; Status DC Lactated Ringer's (Iv Lactated Ringers) 1,000 ml @ 0 mls/hr Q0M IV Last administered on 08/12/16t 14:35; Start 08/12/16 at 14:23; Stop 08/13/16 at 02:22; Status DC Lidocaine HCl 2 ml 1X PRN PRN ID IV START; Start 08/12/16 at 14:30; Stop at 14:29; Status DC Hydromorphone HCl (Dilaudid) 0.5 mg PRN Q10MIN PRN IV SEV PAIN,Second choice; Start 08/12/16 at 14:30; Stop 08/13/16 at 14:29; Status DC Prochlorperazine Edisylate (Compazine) 5 mg PACU PRN PRN IV NAUSEA; Start at 14:30; Stop 08/13/16 at 14:29; Status DC Losartan Potassium (Cozaar) 100 mg DAILY PO Last administered on 08/17/16 09: 18; Start 08/12/16 at 17:00 Hydrochlorothiazide (Microzide) 12.5 mg DAILY PO Last administered on 09:17; Start 08/12/16 at 17:00 Acetaminophen/ Hydrocodone Bitart (Lortab 5/325) 1 tab PRN Q4HRS PRN PO PAIN Last administered on 08/16/16 03:49; Start 08/13/16 at 14:30 Acetaminophen/ Hydrocodone Bitart (Lortab 5/325) 2 tab PRN Q4HRS PRN PO PAIN Last administered on 08/17/16 09:17; Start 08/13/16 at 14:30 Albuterol/ Ipratropium (Duoneb) 3 ml RTQID NEB Last administered on 08/17/16 07:46; Start 08/15/16 at 13:00 Albuterol Sulfate (Ventolin Neb Soln) 3 mg PRN Q4HRS PRN NEB dyspnea Last administered on 08/17/16 02:20; Start 08/15/16 at 15:15 Calcium Carbonate/ Glycine (Tums) 500 mg PRN AFTMEALHC PRN PO INDIGESTION; Start 08/16/16 at 10:45 Active Scripts Active Reported Tizanidine Hcl 4 Mg Tablet Lisinopril-Hctz 10-12.5 Mg Tab (Lisinopril/Hydrochlorothiazide) 1 Each Tablet Alprazolam 1 Mg Tablet Proair Hfa (Albuterol Sulfate) 8.5 Gm Hfa.aer.ad Tramadol Hcl 50 Mg Tablet Citalopram Hbr (Citalopram Hydrobromide) 10 Mg Tablet Valsartan-Hctz 160-12.5 Mg Tab (Valsartan/Hydrochlorothiazide) 1 Each Tablet 1 Each PO DAILY Trazodone Hcl 50 Mg Tablet 50 Mg PO HS Combivent Respimat Inhal (Ipratropium/Albuterol Sulfate) 4 Gm Aer.w.adap 2 Inh IH QID Albuterol Sulfate Hfa Inhaler (Albuterol Sulfate) 8.5 Gm Hfa.aer.ad 8.5 Gm IH PRN Xanax (Alprazolam) 1 Mg Tablet 0.5 Mg PO TID PRN Vitals/I & O Vital Sign - Last 24 Hours 08/16/16 08/16/16 08/16/16 08/16/16 11:00 11:19 13:54 15:00 Temp 96.9 98.2 96.9 98.2 Pulse 124 93 Resp 22 28 B/P 142/76 138/73 Pulse Ox 91 94 O2 Delivery Nasal Cannula Nasal Cannula Nasal Cannula Nasal Cannula O2 Flow Rate 5.0 5.0 5.0 5.0 08/16/16 08/16/16 08/16/16 08/16/16 15:24 18:09 19:00 19:40 Temp 99.3 99.3 Pulse 118 Resp 20 B/P 138/76 Pulse Ox 94 97 O2 Delivery Nasal Cannula Nasal Cannula Nasal Cannula Nasal Cannula O2 Flow Rate 5.0 4.0 5.0 5.0 08/16/16 08/16/16 08/16/16 08/16/16 19:46 22:30 23:17 23:20 Temp 97.9 97.9 Pulse 113 Resp 20 18 B/P 124/68 Pulse Ox 97 93 94 O2 Delivery Nasal Cannula Nasal Cannula Nasal Cannula Nasal Cannula O2 Flow Rate 5.0 5.0 5.0 5.0 08/17/16 08/17/16 08/17/16 08/17/16 02:20 03:21 03:24 04:24 Temp 98.9 98.9 Pulse 119 Resp 20 20 20 B/P 132/77 Pulse Ox 93 97 O2 Delivery Nasal Cannula Nasal Cannula Nasal Cannula Nasal Cannula O2 Flow Rate 5.0 5.0 5.0 5.0 3/13/17 08/17/16 08/17/16 08/17/16 07:00 07:46 08:10 09:17 Temp 97.5 97.5 Pulse 100 Resp 22 B/P 153/87 Pulse Ox 93 95 O2 Delivery Nasal Cannula Nasal Cannula Nasal Cannula Nasal Cannula O2 Flow Rate 5.0 5.0 5.0 5.0 08/17/16 09:18 Pulse 119 B/P 132/77 Intake and Output 08/16/16 08/16/16 08/17/16 15:00 23:00 07:00 Intake Total 300 ml 350 ml Output Total 375 ml Balance 300 ml -25 ml JOI CORRALES MD Aug 17, 2016 09:54
[2016-08-17] MEDS: LORAZEPAM 2 MG/ML VIAL IV PRN (10:47)
[2016-08-17 11:00] VITALS: BP 164/89
--- NOTE | 2016-08-17 13:23 | PDOC ---
PROGRESS NOTES Subjective Subjective Pt awake and pleasant this am. Confusion resolved. Pt states pain is well controlled on current pain regimen. Pt able to ambulate about room with walker. Pt states she is eating and drinking well with good output. Objective Objective Pt awake and alert. NAD. VSS. Afebrile. Lung sounds diminished. Resp even and unlabored. Pt currently on 5L of O2 per NC and Trilogy at . Pt at baseline for her COPD. Left hip dressing CDI. Edges of incision well approximated. Vital Signs Date Time Temp Pulse Resp B/P Pulse Ox O2 Delivery O2 Flow Rate FiO2 08/17/16 11:06 93 Nasal Cannula 5.0 08/17/16 11:00 97.6 139 24 164/89 97.6 Intake and Output 08/17/16 07:00 Intake Total 650 ml Output Total 375 ml Balance 275 ml Intake Oral 650 ml Output Urine Total 375 ml # Voids 3 Assessment Assessment Problems Medical Problems: (1) Acute and chronic respiratory failure ([id number]) Status: Acute (2) Closed left femoral fracture Status: Acute (3) COPD exacerbation Status: Acute Plan Plan of Care 1. Left hip fx -secondary to mechanical fall on 08/11/16 -Ortho consulting -s/p closed reduction with percutaneous screw fixation on 08/12/16 -Hgb 9.2 this am, trending up -PT/OT -PT recommend SNF placement, pt refusing and wants to return home. 2. COPD with acute exacerbation -prior to admission, pt on 4L of O2 and Trilogy at -Pulmonology consulting -Successful extubation on 08/12. Pt now on home regimen with Trilogy at . 3. Encephalopathy, resolved. -probable secondary to narcotic medication for pain control and/or hypercapnia -Pt changed to PO pain meds on 08/13 per ortho -Neuro consulted for input Pt to Dc home today with . Pt will resume her previous home medications. Regular diet. Activity with weight bearing of L hip as tolerated. Comment Review of Relevant I have reviewed the following items pako (where applicable) has been applied. Labs Laboratory Tests Test 08/15/16 21:44 08/16/16 21:26 Glucose (Fingerstick) 112mg/dL (70-99) 123mg/dL (70-99) Laboratory Tests Test 08/16/16 21:26 Glucose (Fingerstick) 123mg/dL (70-99) Microbiology 08/11/16 Blood Culture - Final, Complete NO GROWTH AFTER 5 DAYS Medications Current Medications Albuterol/ Ipratropium (Duoneb) 3 ml 1X ONCE NEB Last administered on 16:34; Start 08/11/16 at 16:00; Stop 08/11/16 at 16:01; Status DC Methylprednisolone Sodium Succinate (Solu-Medrol 125mg Vial) 125 mg 1X ONCE IV Last administered on 08/11/16 16:07; Start 08/11/16 at 16:00; Stop 08/11/16 at 16:01; Status DC Fentanyl Citrate (Fentanyl 2ml Vial) 25 mcg 1X ONCE IV Last administered on 16:26; Start 08/11/16 at 16:30; Stop 08/11/16 at 16:31; Status DC Fentanyl Citrate (Fentanyl 2ml Vial) 100 mcg STK-MED ONCE .ROUTE ; Start at 16:22; Stop 08/11/16 at 16:23; Status DC Albuterol/ Ipratropium 3 ml 3 ml PRN Q4HRS PRN NEB dysnea Last administered on 08/15/16 11:59; Start 08/11/16 at 17:30; Stop 08/15/16 at 15:14; Status DC Potassium Chloride/Sodium Chloride (KCl 20 Meq-NS 1,000 ml Iv Soln) 1,000 ml @ 100 mls/hr 1X ONCE IV Last administered on 08/11/16 19:41; Start 08/11/16 at 18 :00; Stop 08/12/16 at 03:59; Status DC Fentanyl Citrate 25 mcg 25 mcg PRN Q2HR PRN IV PAIN Last administered on 14:01; Start 08/11/16 at 18:30 Sodium Chloride (Iv Sodium Chloride 0.9% 500ml Bag) 500 ml @ 500 mls/hr 1X ONCE IV Last administered on 08/11/16 18:35; Start 08/11/16 at 18:45; Stop at 19:44; Status DC Lorazepam 0.5 mg 0.5 mg PRN Q4HRS PRN IV ANXIETY / AGITATION Last administered on 08/17/16 10:47; Start 08/11/16 at 20:45 Sodium Chloride 250 ml @ 250 mls/hr 1X ONCE IV ; Start 08/12/16 at 10:00; Stop 08/12/16 at 10:02; Status DC Sodium Chloride (Iv Sodium Chloride 0.9% 500ml Bag) 500 ml @ 500 mls/hr 1X ONCE IV Last administered on 08/12/16t 10:04; Start 08/12/16 at 10:02; Stop at 11:01; Status DC Dexamethasone Sodium Phosphate (Decadron) 20 mg STK-MED ONCE .ROUTE ; Start 08/12 at 10:16; Stop 08/12/16 at 10:17; Status DC Ondansetron HCl 4 mg 4 mg STK-MED ONCE .ROUTE ; Start 08/12/16 at 10:16; Stop 08/12/16 at 10:17; Status DC Propofol (Diprivan) 20 ml @ As Directed STK-MED ONCE IV ; Start 08/12/16 at 10:16 ; Stop 08/12/16 at 10:17; Status DC Lidocaine HCl 100 mg STK-MED ONCE .ROUTE ; Start 08/12/16 at 10:16; Stop 08/12/16 at 10:17; Status DC Succinylcholine Chloride 200 mg 200 mg STK-MED ONCE .ROUTE ; Start 08/12/16 at 10 :16; Stop 08/12/16 at 10:17; Status DC Cefazolin Sodium (Ancef 1gm Ivpb For Omni) 50 ml @ As Directed STK-MED ONCE IV ; Start 08/12/16 at 12:18; Stop 08/12/16 at 12:19; Status DC Phenylephrine HCl 1 mg STK-MED ONCE IV ; Start 08/12/16 at 12:18; Stop 08/12/16 at 12:19; Status DC Sevoflurane (Ultane) 60 ml STK-MED ONCE IH ; Start 08/12/16 at 13:22; Stop at 13:23; Status DC Fentanyl Citrate (Fentanyl 2ml Vial) 100 mcg STK-MED ONCE .ROUTE ; Start at 13:22; Stop 08/12/16 at 13:23; Status DC Fentanyl Citrate (Fentanyl 2ml Vial) 25 mcg PRN Q5MIN PRN IV MILD PAIN; Start 08/12/16 at 14:30; Stop 08/13/16 at 14:29; Status DC Fentanyl Citrate (Fentanyl 2ml Vial) 50 mcg PRN Q5MIN PRN IV MODERATE PAIN; Start 08/12/16 at 14:30; Stop 08/13/16 at 14:29; Status DC Morphine Sulfate 1 mg 1 mg PRN Q10MIN PRN IV SEVERE PAIN; Start 08/12/16 at 14: 30; Stop 08/13/16 at 14:29; Status DC Lactated Ringer's (Iv Lactated Ringers) 1,000 ml @ 0 mls/hr Q0M IV Last administered on 08/12/16 14:35; Start 08/12/16 at 14:23; Stop 08/13/16 at 02:22; Status DC Lidocaine HCl 2 ml 1X PRN PRN ID IV START; Start 08/12/16 at 14:30; Stop at 14:29; Status DC Hydromorphone HCl (Dilaudid) 0.5 mg PRN Q10MIN PRN IV SEV PAIN,Second choice; Start 08/12/16 at 14:30; Stop 08/13/16 at 14:29; Status DC Prochlorperazine Edisylate (Compazine) 5 mg PACU PRN PRN IV NAUSEA; Start at 14:30; Stop 08/13/16 at 14:29; Status DC Losartan Potassium (Cozaar) 100 mg DAILY PO Last administered on 08/17/16 09: 18; Start 08/12/16 at 17:00 Hydrochlorothiazide (Microzide) 12.5 mg DAILY PO Last administered on 09:17; Start 08/12/16 at 17:00 Acetaminophen/ Hydrocodone Bitart (Lortab 5/325) 1 tab PRN Q4HRS PRN PO PAIN Last administered on 08/16/16 03:49; Start 08/13/16 at 14:30 Acetaminophen/ Hydrocodone Bitart (Lortab 5/325) 2 tab PRN Q4HRS PRN PO PAIN Last administered on 08/17/16 09:17; Start 08/13/16 at 14:30 Albuterol/ Ipratropium (Duoneb) 3 ml RTQID NEB Last administered on 08/17/16 11:04; Start 08/15/16 at 13:00 Albuterol Sulfate (Ventolin Neb Soln) 3 mg PRN Q4HRS PRN NEB dyspnea Last administered on 08/17/16 02:20; Start 08/15/16 at 15:15 Calcium Carbonate/ Glycine (Tums) 500 mg PRN AFTMEALHC PRN PO INDIGESTION; Start 08/16/16 at 10:45 Active Scripts Active Reported Tizanidine Hcl 4 Mg Tablet Lisinopril-Hctz 10-12.5 Mg Tab (Lisinopril/Hydrochlorothiazide) 1 Each Tablet Alprazolam 1 Mg Tablet Proair Hfa (Albuterol Sulfate) 8.5 Gm Hfa.aer.ad Tramadol Hcl 50 Mg Tablet Citalopram Hbr (Citalopram Hydrobromide) 10 Mg Tablet Valsartan-Hctz 160-12.5 Mg Tab (Valsartan/Hydrochlorothiazide) 1 Each Tablet 1 Each PO DAILY Trazodone Hcl 50 Mg Tablet 50 Mg PO HS Combivent Respimat Inhal (Ipratropium/Albuterol Sulfate) 4 Gm Aer.w.adap 2 Inh IH QID Albuterol Sulfate Hfa Inhaler (Albuterol Sulfate) 8.5 Gm Hfa.aer.ad 8.5 Gm IH PRN Xanax (Alprazolam) 1 Mg Tablet 0.5 Mg PO TID PRN Vitals/I & O Vital Sign - Last 24 Hours 08/16/16 08/16/16 08/16/16 08/16/16 13:54 15:00 15:24 18:09 Temp 98.2 98.2 Pulse 93 Resp 28 B/P 138/73 Pulse Ox 94 94 O2 Delivery Nasal Cannula Nasal Cannula Nasal Cannula Nasal Cannula O2 Flow Rate 5.0 5.0 5.0 4.0 08/16/16 08/16/16 08/16/16 08/16/16 19:00 19:40 19:46 22:30 Temp 99.3 99.3 Pulse 118 Resp 20 B/P 138/76 Pulse Ox 97 97 93 O2 Delivery Nasal Cannula Nasal Cannula Nasal Cannula Nasal Cannula O2 Flow Rate 5.0 5.0 5.0 5.0 08/16/16 08/16/16 08/17/16 08/17/16 23:17 23:20 02:20 03:21 Temp 97.9 98.9 97.9 98.9 Pulse 113 119 Resp 20 18 20 B/P 124/68 132/77 Pulse Ox 94 93 97 O2 Delivery Nasal Cannula Nasal Cannula Nasal Cannula Nasal Cannula O2 Flow Rate 5.0 5.0 5.0 5.0 08/17/16 08/17/16 08/17/16 08/17/16 03:24 04:24 07:00 07:46 Temp 97.5 97.5 Pulse 100 Resp 20 20 22 B/P 153/87 Pulse Ox 93 95 O2 Delivery Nasal Cannula Nasal Cannula Nasal Cannula O2 Flow Rate 5.0 5.0 5.0 08/17/16 08/17/16 08/17/16 08/17/16 08:10 09:17 09:18 10:15 Pulse 119 B/P 132/77 O2 Delivery Nasal Cannula Nasal Cannula Nasal Cannula O2 Flow Rate 5.0 5.0 5.0 08/17/16 08/17/16 11:00 11:06 Temp 97.6 97.6 Pulse 139 Resp 24 B/P 164/89 Pulse Ox 90 93 O2 Delivery Nasal Cannula Nasal Cannula O2 Flow Rate 5.0 5.0 Intake and Output 08/16/16 08/16/16 08/17/16 15:00 23:00 07:00 Intake Total 300 ml 350 ml Output Total 375 ml Balance 300 ml -25 ml Nutrition Consultation Dietary Evaluation: Recommendations by RD: Increase Calorie Intake, Protein supplementation Comments: boost plus tid Expected Outcomes/Goals: to meet > 75% est nutr needs Malnutrition Findings: Body Fat Depletion (Non Severe: Mild Depletion Weight Status: Underweight APPLJAMIN MD Aug 17, 2016 13:23
[2016-08-17] MEDS ORDERED: HYDR-2666 PO (13:29)
[2016-08-17 15:00] VITALS: BP 115/79
--- NOTE | 2016-08-17 22:47 | DS ---
DATE OF DISCHARGE: 08/17/2016 This is Roseann Bee APRN, dictating on behalf of Dr. Jamin Ochoa. DISCHARGE DIAGNOSES: 1. Left hip fracture, status post closed reduction with percutaneous screw fixation on 08/12/2016. 2. Chronic obstructive pulmonary disease with acute exacerbation. 3. Metabolic encephalopathy. HISTORY OF PRESENT ILLNESS: This is a 70-year-old female who is well known to me from followup in the clinic. The patient presented to the Emergency Room following a fall at home. Upon evaluation in the Emergency Room, the patient was found to have a left femoral neck fracture. The patient was also found to be very confused and hypoxic while in the Emergency Room. The patient was placed on CPAP after nasal cannula did not help with her hypoxia. The patient did improve in her O2 sats following the CPAP initiation. The patient was given fentanyl and methylprednisone as well as DuoNeb treatment while in the ER and ABG revealed respiratory acidosis. The patient continued to require BiPAP to maintain her O2 saturations. The patient was admitted to the hospital for acute on chronic respiratory failure as well as the left femur fracture. Pulmonology and Orthopedics were consulted. SUMMARY OF STAY: Upon admission, Cardiology and Pulmonology were consulted as mentioned above. The patient underwent closed reduction with percutaneous screw fixation on 08/12/2016. The patient was successfully extubated following surgery and placed on BiPAP. The patient continued to receive Trilogy at home. Following surgery the patient did have encephalopathy. Neurology was consulted and pain medication was reduced to p.o. pain medicines and over the course of the next 3 days the patient's encephalopathy did resolve. Neurology had no further input. The patient did begin to work with PT, OT, and PT recommended that the patient would benefit from SNF placement. The patient refuses and stated that she wanted to return home with home health services. The patient will therefore return home with home health in the care of her son who lives with the patient and her . DIET: Regular. ACTIVITY: As tolerated. DISCHARGE MEDICATIONS: Listed on the medical record and have been addressed. FOLLOWUP: The patient is to follow up with Ortho per their recommendation. The patient is to follow up in our office within a 2-week period sooner if needed. The patient will resume her home O2 of 4-5 liters throughout the day and Trilogy at night. The patient and the patient's son stated understanding of the above discharge summary, denied questions and will follow up accordingly. JAMIN OCHOA MD DR: [email or web address]/[email or web address] JOB#: [id number] / [id number]
== END 2016-08-17 16:40 | disposition home health service (06) | DRG 480 ==
LOC: ER 15:02 → 1 WEST ICU 17:00 → 4 NORTH 08-13 14:22
PROVIDERS: ADMIT Family Medicine; ATTEND Family Medicine
PROC: 0QS734Z Reposition Left Upper Femur with Internal Fixation Device, Percutaneous Approach (ICD-10-PCS; principal; 2016-08-12 11:00)
PROC: 5A09457 Assistance with Respiratory Ventilation, 24-96 Consecutive Hours, Continuous Positive Airway Pressure (ICD-10-PCS; 2016-08-15)
DX: S72.012A Unspecified intracapsular fracture of left femur, initial encounter for closed fracture (principal); G93.41 Metabolic encephalopathy; J96.21 Acute and chronic respiratory failure with hypoxia; J96.22 Acute and chronic respiratory failure with hypercapnia; J44.1 Chronic obstructive pulmonary disease with (acute) exacerbation; E87.2 Acidosis; Z68.1 Body mass index [BMI] 19.9 or less, adult; W18.39XA Other fall on same level, initial encounter; I10 Essential (primary) hypertension; F03.90 Unspecified dementia, unspecified severity, without behavioral disturbance, psychotic disturbance, mood disturbance, and anxiety; F32.9 Major depressive disorder, single episode, unspecified; F41.9 Anxiety disorder, unspecified; N28.9 Disorder of kidney and ureter, unspecified; Z90.710 Acquired absence of both cervix and uterus; Y93.89 Activity, other specified; Y92.098 Other place in other non-institutional residence as the place of occurrence of the external cause; Y99.8 Other external cause status; Z87.891 Personal history of nicotine dependence; Z99.81 Dependence on supplemental oxygen; Z88.8 Allergy status to other drugs, medicaments and biological substances
CPT/HCPCS: 36415; 36600; 70450; 71010; 73502; 76000; 80048; 81001; 82550; 82607; 82805; 82947; 83880; 84443; 84484; 85007; 85027; 87040; 87641; 87804; 93005; 94640; 94660; 94760; 96361; 96374; 96375; C1713; C1887; J0330; J0690; J1100; J2060; J2370; J2405; J2704; J2930; J3010; J7040; J7120; J7620; 97110; 97116; 97535; 99285-25

== ENCOUNTER 2016-08-21 19:35 | Inpatient (IN) | payer MEDICARE ==
[~2016-08-21] VITALS: Ht 162.6 cm; Wt 44.0 kg
[~2016-08-21 19:35] MED LIST changes: +ALBU8.5H5; +ALPR1TAB6; +CITA10TA4; +IPRA4AER IH; +LISI1TAB3; +TIZA4TAB; +TRAM50TA; +VALS1TAB27 PO
[2016-08-21] MEDS ORDERED: FENTANYL PF 100 MCG/2 ML VIAL. IV PRN (19:45)
--- NOTE | 2016-08-21 19:54 | ED.ADGEN ---
Past Medical History Past Medical History: Anxiety, COPD, Depression, Hypertension, Renal Disease Additional Past Medical Histor: back pain Past Surgical History: Hysterectomy Additional Past Surgical Histo: UNKNOWN Alcohol Use: None Drug Use: None Adult General HPI HPI Patient is a 70 year old woman, history of hypertension, renal disease, COPD, per EMS report is on oxygen at baseline, status post open reduction internal fixation of a left femur fracture several weeks ago, who presents to the emergency department via EMS with report of multiple falls at home, and confusion. Patient states that she is aware that she is at [facility], but denies falling, is complaining of pain in her left hip. EMS states the family has noted multiple falls, patient is noted to have bruising across her face, hypotensive on arrival to the emergency department, 70s over 50s, heart rate is in the 120s, oxygen saturation in the 80s on the patient's home O2. noted to have shortening rotation of her left lower extremity, with firmness of the left upper thigh, concerning for recurrent fracture of this femur. C-collar placed upon arrival to the emergency department. Review of Systems Review of Systems Constitutional: Denies fever or chills. [] Eyes: Denies change in visual acuity. [] HENT: Denies nasal congestion or sore throat. [] Respiratory: Denies cough or shortness of breath. [] Cardiovascular: Denies chest pain or edema. [] GI: Denies abdominal pain, nausea, vomiting, bloody stools or diarrhea. [] : Denies dysuria. [] Musculoskeletal: Denies back pain or joint pain. [] Integument: Denies rash. [] Neurologic: Denies headache, focal weakness or sensory changes. [] Endocrine: Denies polyuria or polydipsia. [] Lymphatic: Denies swollen glands. [] Psychiatric: Denies depression or anxiety. [] Current Medications Current Medications Current Medications Medications (Trade) Dose Ordered Sig/Chrissie Start Time Stop Time Status Last Admin Dose Admin Fentanyl Citrate 25 mcg 25 mcg PRN Q15MIN PRN 08/21/16 19:45 08/22/16 19:44 08/21/16 22:51 25 MCG Sodium Chloride (Iv Sodium Chloride 0.9% 1000ml Bag) 1,000 ml @ 1,000 mls/hr 1X ONCE 08/21/16 20:00 08/21/16 20:59 DC 08/21/16 20:45 1,000 MLS/HR Allergies Allergies Physical Exam Physical Exam Constitutional: Well developed, patient appears uncomfortable secondary to pain , is thin, with bruising noted at the face, arms, legs. HENT: Normocephalic, atraumatic, bilateral external ears normal, oropharynx moist, no oral exudates, nose normal. [] Eyes: PERRLA, EOMI, conjunctiva normal, no discharge. [] Neck: Normal range of motion, no tenderness, supple, no stridor. [] C-collar placed upon arrival to the emergency department. Cardiovascular:Heart rate regular, tachycardic, no murmur , S1, S2, no rubs or gallops. Soft heart sounds.] Lungs & Thorax: Patient with dyspnea, poor air movement, mild scattered wheezing , no rhonchi or rales. Abdomen: Bowel sounds normal, soft, mild tenderness to palpation, no rebound, rigidity, no guarding, no lesions or no ecchymosis, no masses, no pulsatile masses. [] Skin: Warm, dry, no erythema, no rash. [] Back: No tenderness, no CVA tenderness. [] Extremities: Patient with deformity shortening rotation of the left lower extremity, pulses are intact, patient with rosy in place on the lateral to the left greater trochanter, with ecchymosis, no bleeding, no new external signs of trauma. Neurologic: Alert and oriented X 3, normal motor function, normal sensory function, no focal deficits noted. [] Psychologic: Affect normal, judgement normal, mood normal. [] Current Patient Data Vital Signs Vital Signs Date Time Temp Pulse Resp B/P Pulse Ox O2 Delivery O2 Flow Rate FiO2 08/21/16 22:15 122 27 08/21/16 22:00 97 08/21/16 21:45 131/91 08/21/16 20:40 98.0 Room Air 2 98.0 Lab Values Laboratory Tests Test 08/21/16 20:05 08/21/16 20:35 08/21/16 21:15 08/21/16 21:54 Stool Occult Blood Negative (NEG) White Blood Count 17.2x10^3/uL (4.0-11.0) H Red Blood Count 2.58x10^6/uL (3.50-5.40) L Hemoglobin 7.6g/dL (12.0-15.5) L Hematocrit 23.9% (36.0-47.0) L Mean Corpuscular Volume 92fL (79-100) Mean Corpuscular Hemoglobin 29pg (25-35) Mean Corpuscular Hemoglobin Concent 32g/dL (31-37) Red Cell Distribution Width 16.0% (11.5-14.5) H Platelet Count 416x10^3/uL (140-400) H Neutrophils (%) (Auto) 82% (31-73) H Lymphocytes (%) (Auto) 2% (24-48) L Monocytes (%) (Auto) 16% (0-9) H Eosinophils (%) (Auto) 0% (0-3) Basophils (%) (Auto) 0% (0-3) Neutrophils # (Auto) 14.2x10^3uL (1.8-7.7) H Lymphocytes # (Auto) 0.3x10^3/uL (1.0-4.8) L Monocytes # (Auto) 2.7x10^3/uL (0.0-1.1) H Eosinophils # (Auto) 0.0x10^3/uL (0.0-0.7) Basophils # (Auto) 0.0x10^3/uL (0.0-0.2) Segmented Neutrophils % 91% (35-66) H Lymphocytes % 1% (24-48) L Monocytes % 4% (0-10) Metamyelocytes % 4% (0-0) H Platelet Estimate Increased (ADEQUATE) Large Platelets Occ Giant Platelets Polychromasia Slight Ovalocytes Occ Stomatocytes Occ Prothrombin Time 14.4SEC (11.7-14.0) H Prothrombin Time INR 1.2 (0.8-1.1) H PTT 26SEC (24-38) Sodium Level 142mmol/L (136-145) Potassium Level 3.7mmol/L (3.5-5.1) Chloride Level 101mmol/L (98-107) Carbon Dioxide Level 31mmol/L (21-32) Anion Gap 10 (6-14) 16mmol/L (6-14) H Blood Urea Nitrogen 46mg/dL (7-20) H Creatinine 1.6mg/dL (0.6-1.0) H Estimated GFR (Cockcroft-Gault) 32.1 BUN/Creatinine Ratio 29 (6-20) H Glucose Level 138mg/dL (70-99) H 137mg/dL (70-99) H Calcium Level 8.7mg/dL (8.5-10.1) Total Bilirubin 1.0mg/dL (0.2-1.0) Aspartate Amino Transferase (AST) 96U/L (15-37) H Alanine Aminotransferase (ALT) 66U/L (14-59) H Alkaline Phosphatase 88U/L (46-116) Troponin I Quantitative 0.024ng/mL (0.000-0.055) IL-Fok-M-Type Natriuretic Peptide 1131pg/mL (0-124) H Total Protein 6.2g/dL (6.4-8.2) L Albumin 3.4g/dL (3.4-5.0) Albumin/Globulin Ratio 1.2 (1.0-1.7) POC Hemoglobin 8.5g/dL (12-15) L POC Hematocrit 25% (36-40) L POC Sodium 136mmol/L (135-145) POC Potassium 3.3mmol/L (3.5-5.0) L POC Chloride 96mmol/L (98-110) L POC Total CO2 29mmol/L (23-32) POC Blood Urea Nitrogen 38mg/dL (8-26) H POC Creatinine 1.5mg/dL (0.5-1.4) H POC Ionized Calcium (Louie) 0.93mmol/L (1.13-1.32) L O2 Saturation 93% (92-99) Arterial Blood pH 7.41 (7.35-7.45) Arterial Blood pCO2 at Patient Temp 50mmHg (35-46) H Arterial Blood pO2 at Patient Temp 71mmHg (65-108) Arterial Blood HCO3 31mmol/L (21-28) H Arterial Blood Base Excess 6mmol/L (-3-3) H FiO2 32.0 Laboratory Tests 08/21/16 20:35 Laboratory Tests 08/21/16 20:35 08/21/16 21:15 EKG EKG EC: Sinus tachycardia, heart rate 122 bpm, occasional APCs noted, left internal hypertrophy noted, QTc of 451, KS of 118, QRS of 78, left axis deviation, abnormal ECG, does not meet STEMI criteria. As interpreted by me. [] Radiology/Procedures Radiology/Procedures [] [address] [place] [address] IMAGING REPORT Signed PATIENT: EILEEN WALLACE ACCOUNT: [id number] : 1945 LOCATION: ER AGE: 70 SEX: F EXAM STATUS: REG ER ORD. PHYSICIAN: RODERICK LOYD DO REASON: fall/trauma/AMS PROCEDURE: HEAD AND CERVICAL SPINE WO PROCEDURE CT head and CT cervical spine without intravenous contrast. HISTORY Fall, trauma, pain. TECHNIQUE Axial images are obtained of the head from the skull base through the vertex without IV contrast Noncontrast CT of the cervical spine was performed. Axial, sagittal, and coronal reconstructions were obtained. Exposure: One or more of the following individualized dose reduction techniques were utilized for this examination: 1. Automated exposure control. 2. Adjustment of the mA and/or kV according to patient size. 3. Use of iterative reconstruction technique. COMPARISON CT head August 14, 2016. FINDINGS CT head: The ventricles are appropriate in size, shape, and location for the patient's age.No obvious intracranial mass, mass-effect, midline shift, hemorrhage or obvious acute infarction is identified.Basilar cisterns are patent. Mild, patchy, nonspecific white matter low attenuation is seen, probably from chronic microvascular ischemic disease. Bone windows demonstrate no acute calvarial abnormality.The visualized paranasal sinuses appear clear. CT cervical spine: No acute fracture or acute malalignment is identified. No prevertebral soft tissue swelling is seen. Multilevel degeneration is noted with facet and uncovertebral hypertrophy. Calcified carotid atherosclerosis is seen. Advanced emphysematous changes of the lungs are present. IMPRESSION 1. No acute intracranial process. Please note that CT can be relatively insensitive to acute ischemic infarction for up to 24 hours after symptom onset. 2. Nonspecific white matter changes, probably from chronic microvascular ischemic disease. 3. No acute osseous traumatic injury identified in cervical spine. Electronically signed by: Marc Ludwig MD (Aug 21, 2016 21:51:54) DICTATED and SIGNED BY: MARC LUDWIG MD DATE: 08/21/162150 CC: JAMIN EVANS MD; RODERICK LOYD DO ~ Course & Med Decision Making Course & Med Decision Making Pertinent Labs and Imaging studies reviewed. (See chart for details) Patient is a hypotensive, blood pressure 70s over 50s, tachycardic in the 120s, complaining of significant pain in her left lower extremity with obvious deformity, bruising, and firmness, concern for recurrent fracture at site of previous open reduction internal fixation repair. Patient on Zoloft, which she does use at home at baseline due to COPD. Patient received IV fluids, fentanyl IV, received CT of the head, neck, abdomen and pelvis, along with plain films of the pelvis, and plain films of the left forearm. Patient with a hemoglobin of 7.6, creatinine of 1.6. Imaging of head and neck unremarkable, imaging of the pelvis reveals left subtrochanteric fracture. Findings as above discussed with Dr. Decker of orthopedics who performed the patient's previous surgery, he did review the imaging remotely. Plan for patient be taken to the OR tomorrow morning for total hip arthroplasty. Patient's hemoglobin as stated, written consent obtained will transfuse 1 unit packed red cells this time, additional units on hold for OR. Will follow hemoglobin. Plan for admission to the ICU. Documentation of ITALO JOHANSEN MD 70-year-old female presenting to the emergency department today with hypotension and tachycardia after a fall. Found to have subtrochanteric fracture. I received care of the patient around 10 PM. On evaluation the patient needed a DuoNeb. I ordered that for the patient. I had a risk-benefit discussion about transfusion with the patient. The patient's heart rate has come down with saline fluid resuscitation and blood pressure has come up. I still think that 1 unit of packed red blood cells would likely benefit the patient. The patient was then admitted to our hospital for further evaluation workup and care. Dragon Disclaimer Dragon Disclaimer This electronic medical record was generated, in whole or in part, using a voice recognition dictation system. RODERICK LOYD DO Aug 21, 2016 19:54 ITALO JOHANSEN MD Aug 22, 2016 00:29
[2016-08-21] MEDS ORDERED: IV NORMAL SALINE 1000ML BAG 1,000 ML IV ONE (20:00)
[2016-08-21 20:56] LABS: BASO % 0 % (0-3); EOS % 0 % (0-3); HEMATOCRIT 23.9 % (36.0-47.0); HEMOGLOBIN 7.6 g/dL (12.0-15.5); LYMPH # 0.3 x10^3/uL (1.0-4.8); LYMPH % 2 % (24-48); MEAN CORPUSCULAR HEMOGLOBIN 29 pg (25-35); MEAN CORPUSCULAR HGB CONC 32 g/dL (31-37); MEAN CORPUSCULAR VOLUME 92 fL (79-100); MONO % 16 % (0-9); NEUT % 82 % (31-73); PLATELET COUNT 416 x10^3/uL (140-400); RED BLOOD COUNT 2.58 x10^6/uL (3.50-5.40); WHITE BLOOD COUNT 17.2 x10^3/uL (4.0-11.0)
[2016-08-21 21:04] LABS: INR 1.2 (0.8-1.1); PROTHROMBIN TIME PATIENT 14.4 SEC (11.7-14.0)
[2016-08-21 21:15] LABS: CALCIUM 8.7 mg/dL (8.5-10.1); CREATININE 1.6 mg/dL (0.6-1.0); GFR 32.1; POTASSIUM 3.7 mmol/L (3.5-5.1)
[2016-08-21 21:19] LABS: POTASSIUM ISTAT 3.3 mmol/L (3.5-5.0)
[2016-08-21 21:21] LABS: ALBUMIN 3.4 g/dL (3.4-5.0); ALBUMIN/GLOBULIN RATIO 1.2 (1.0-1.7); TOTAL PROTEIN 6.2 g/dL (6.4-8.2)
[2016-08-21 21:26] LABS: PLT ESTIMATE INCREASED (ADEQUATE)
[2016-08-21 21:27] LABS: OVALOCYTES OCC; POLYCHROMASIA SLIGHT; STOMATOCYTES OCC
[2016-08-21 21:39] LABS: NEG OBC FOB NEG; POS OBC FOB POS
--- NOTE | 2016-08-21 21:53 | RAD ---
PROCEDURE CT head and CT cervical spine without intravenous contrast. HISTORY Fall, trauma, pain. TECHNIQUE Axial images are obtained of the head from the skull base through the vertex without IV contrast Noncontrast CT of the cervical spine was performed. Axial, sagittal, and coronal reconstructions were obtained. Exposure: One or more of the following individualized dose reduction techniques were utilized for this examination: 1. Automated exposure control. 2. Adjustment of the mA and/or kV according to patient size. 3. Use of iterative reconstruction technique. COMPARISON CT head August 14, 2016. FINDINGS CT head: The ventricles are appropriate in size, shape, and location for the patient's age.No obvious intracranial mass, mass-effect, midline shift, hemorrhage or obvious acute infarction is identified.Basilar cisterns are patent. Mild, patchy, nonspecific white matter low attenuation is seen, probably from chronic microvascular ischemic disease. Bone windows demonstrate no acute calvarial abnormality.The visualized paranasal sinuses appear clear. CT cervical spine: No acute fracture or acute malalignment is identified. No prevertebral soft tissue swelling is seen. Multilevel degeneration is noted with facet and uncovertebral hypertrophy. Calcified carotid atherosclerosis is seen. Advanced emphysematous changes of the lungs are present. IMPRESSION 1. No acute intracranial process. Please note that CT can be relatively insensitive to acute ischemic infarction for up to 24 hours after symptom onset. 2. Nonspecific white matter changes, probably from chronic microvascular ischemic disease. 3. No acute osseous traumatic injury identified in cervical spine. Electronically signed by: Marc Connolly MD (Aug 21, 2016 21:51:54)
--- NOTE | 2016-08-21 22:12 | RAD ---
PROCEDURE CT abdomen and pelvis without intravenous contrast. HISTORY Fall, trauma, pain. TECHNIQUE Helical CT of the abdomen and pelvis was performed without intravenous or oral contrast. Exposure: One or more of the following individualized dose reduction techniques were utilized for this examination: 1. Automated exposure control. 2. Adjustment of the mA and/or kV according to patient size. 3. Use of iterative reconstruction technique. COMPARISON CT abdomen pelvis April 13, 2004. FINDINGS Evaluation of solid organs is limited by lack of intravenous contrast. Evaluation of enteric structures may be limited by lack of oral contrast. Images of the lower chest demonstrate emphysematous changes of the lungs. Calcified splenic and hepatic granulomata are present. Pancreas and bilateral adrenal glands are unremarkable. Gallbladder is thought visualized and unremarkable. Aortic atherosclerosis is seen. Infrarenal abdominal aortic aneurysm is seen which measures 2.7 centimeters in AP dimension x 3.4 centimeters in transverse dimension. Bilateral kidneys are without evidence of stone or obstruction. No bowel obstruction or inflammation is seen. Urinary bladder is unremarkable. Uterus is absent. Left hip demonstrates presence of 3 fixation screws. There is a comminuted, displaced intertrochanteric and subtrochanteric femoral fracture, may be acute. IMPRESSION 1. No acute intraperitoneal abnormality identified in the abdomen or pelvis. 2. Infrarenal abdominal aortic aneurysm. 3. Comminuted proximal left femoral fracture, appears acute. Recommend clinical correlation. Electronically signed by: Marc Connolly MD (Aug 21, 2016 22:10:12)
--- NOTE | 2016-08-21 22:18 | RAD ---
PROCEDURE CT face without intravenous contrast. HISTORY Fall, pain. TECHNIQUE Noncontrast CT of the face was performed. Axial, sagittal, and coronal reconstructions were obtained. Exposure: One or more of the following individualized dose reduction techniques were utilized for this examination: 1. Automated exposure control. 2. Adjustment of the mA and/or kV according to patient size. 3. Use of iterative reconstruction technique. COMPARISON None. FINDINGS Motion artifact is seen at multiple levels which could obscure subtle abnormalities. No acute facial fracture is identified. Bilateral orbits and orbital contents appear intact. Mild-moderate left inferior maxillary sinus mucosal thickening is seen. Mild sphenoid sinus mucosal thickening is present. Bilateral ostiomeatal units are patent. No mucoperiosteal reaction is identified. IMPRESSION 1. No acute facial fracture. 2. Paranasal sinus disease. Electronically signed by: Marc Connolly MD (Aug 21, 2016 22:17:41)
[2016-08-21 22:53] LABS: BILIRUBIN,URINE SMALL (NEG); GLUCOSE,URINE NEGATIVE (NEG); NITRITE,URINE NEGATIVE (NEG); PH,URINE 5.5; PROTEIN,URINE 100 mg/dL (NEG-TRACE)
[2016-08-21 22:59] LABS: HCO3 ABG 31 mmol/L (21-28); PCO2 ABG 50 mmHg (35-46); PH ABG 7.41 (7.35-7.45); PO2 ABG 71 mmHg (65-108); SAT O2 ABG 93 % (92-99)
[2016-08-21 23:00] LABS: BARBITURATES NEG (NEG); BENZODIAZEPINES POS (NEG); CANNABINOIDS NEG (NEG); COCAINE NEG (NEG); METHADONE NEG (NEG); OPIATES NEG (NEG); PHENCYCLIDINE NEG (NEG)
[2016-08-21] MEDS ORDERED: IV NORMAL SALINE 500ML BAG 500 ML IV ONE (23:00)
[2016-08-21] MEDS ORDERED: IPRATRPIUM/ALBUTEROL 0.5/2.5MG 3 ML NEBU. NEB ONE (23:00)
[2016-08-21 23:05] LABS: ETHANOL, URINE NEG (NEG)
[2016-08-21 23:10] LABS: BACTERIA,URINE 0 /HPF (0-FEW); RBC,URINE RARE /HPF (0-2); SQUAMOUS EPITHELIAL CELL,UR OCC /LPF; WBC,URINE OCC /HPF (0-4)
[2016-08-21 23:38] VITALS: BP 146/74
[2016-08-21 23:53] VITALS: BP_SYST 142; BP_SYST 151; BP_DIAS 79
[2016-08-22] VITALS (8 sets, daily range): BP systolic 118–168; BP diastolic 61–94
[2016-08-22] MEDS ORDERED: ONDANSETRON PF 4 MG/2 ML VIAL. IV PRN ×3 (01:15→15:00)
--- NOTE | 2016-08-22 01:19 | ACF ---
Admit Criteria Forms Admit Criteria Forms Admit Criteria Forms HEMODYNAMIC INSTABILITY Clinical Indications for Inpatient Care (Place 'X' for any and all applicable criteria): Ongoing inpatient care may be indicated for hemodynamic instability as indicated by ANY ONE of the following (1)(2)(3)(4)(10): [ ]I) Marked hemodynamic change from baseline (eg, SBP 20 mm Hg below patient's usual pressure) [X ]II) New SBP less than 90 mm Hg or mean arterial pressure less than 70 mm Hg [B](15) [ ]IIII) Symptomatic heart rate greater than 100 or less than 60 beats per minute unresponsive to treatment (eg, analgesia, fluids) [ ]IV) Inadequate perfusion as indicated by ANY ONE of the following: [ ]a) Lactic acidosis, with lactic acid greater than 18 mg/dL (2 mmol/ L) or base excess less than -5 mEq/L [ ]b) New abnormal capillary refill (longer than 3 seconds) [ ]c) New altered mental status [ ]d) Reduced urine output [ ]V) Orthostatic vital sign changes [B] that are symptomatic and unresponsive to treatment (eg, fluids) [ ]) IV inotropic or vasopressor medication required(26) Extended stay beyond goal length of stay for primary condition may be needed until ALL of the following are present(1)(2)(3): [ ]a) Heart rate > 60 and < 100 beats per minute or patient is clinically stable at current rate (eg, baseline) [ ]b) SBP >100 mm Hg and <160 mm Hg or patient is clinically stable at current pressure (eg, baseline) [ ]c) DBP greater than 50 mm Hg and less than 100 mm Hg or patient is clinically stable at current pressure (eg, baseline) [ ]d) Urine output greater than 0.5 mL/kg per hour [ ]e) Room air oxygen saturation 90% or greater or at baseline [ ]f) Orthostatic vital sign changes absent, asymptomatic, at baseline, or manageable at lower level of care [ ]g) Medical comorbidities manageable at lower level of care The original [facility] [employer] content created by [employer] has been revised. The portions of the content which have been revised are identified through the use of italic text or in bold, and [employer] has neither reviewed nor approved the modified material. All other unmodified content is copyright [facility]. Please see references footnoted in the original [facility] edition 2016 EVELINA ESCUDERO Aug 22, 2016 01:19
[2016-08-22] MEDS: MORPHINE SULFATE 2 MG/ML DISP.SYRIN. IV PRN ×2 (04:04→17:27)
[2016-08-22] MEDS: IV NORMAL SALINE 1000ML BAG 1,000 ML IV SCH ×3 (04:08→21:52)
[2016-08-22] MEDS ORDERED: IV RINGERS,LACTATED 1000ML 1,000 ML IV SCH (07:20)
[2016-08-22] MEDS ORDERED: MORPHINE SULFATE 2 MG/ML DISP.SYRIN. IV PRN ×2 (07:30→15:00)
[2016-08-22] MEDS ORDERED: FENTANYL PF 100 MCG/2 ML VIAL. IV PRN ×2 (07:30→15:00)
[2016-08-22] MEDS ORDERED: HYDROMORPHONE 2 MG/ML VIAL. IV PRN (07:30)
[2016-08-22] MEDS ORDERED: PROCHLORPERAZINE 10 MG/2 ML VIAL. IV PRN (07:30)
[2016-08-22] MEDS ORDERED: LIDOCAINE 1% 1 ML SYRINGE. ID PRN (07:30)
[2016-08-22 08:25] LABS: INR 1.1 (0.8-1.1); PROTHROMBIN TIME PATIENT 13.3 SEC (11.7-14.0)
--- NOTE | 2016-08-22 08:32 | RAD ---
Indication: Pain in left forearm after fall. Technique: 2 views of the left forearm are submitted for review. No comparison is available. Findings: There is no fracture or osseous lesion. IV is noted. Impression: Negative for fracture.
--- NOTE | 2016-08-22 08:35 | RAD ---
Indication: Left hip pain after fall. Technique: One view of each hip and an AP view the pelvis is submitted for review. There are 3 images. Comparison is from August 11, 2016. Findings: There is been placement of 3 partially threaded cannulated screws across the proximal left femur fracture. Fracture line remains visible. In addition to the subcapital fracture noted on prior exam, there is now an intertrochanteric fracture noted with the greater trochanter displaced. No definite acute right hip fracture is identified. Bony pelvis is intact. Impression: There appears to be an acute left intertrochanteric fracture with displacement of the greater trochanter superimposed on the subcapital fracture that was recently treated with internal fixation.
--- NOTE | 2016-08-22 08:41 | RAD ---
Indication: Short of breath and pain after fall. Technique: Supine portable chest radiograph was obtained. Comparison is from August 11, 2016. Findings: The lungs are hyperinflated but are clear. There is no pleural effusion. The heart is not enlarged and there is no heart failure. There is atheromatous disease in the thoracic aorta. Leads overlie the patient. Impression: Findings suggesting emphysema.
--- NOTE | 2016-08-22 09:05 | EKG ---
[facility] [address] [place] [address] Test Date: 2016-08-21 Test Time: 19:54:31 Pat Name: EILEEN WALLACE Department: Room: 404 Gender: F [employer]: : 1945 Requested By: RODERICK LOYD Order Number: [id number] Reading MD: La Griffin Measurements Intervals [place] Rate: 122 P: 90 NE: 118 QRS: -74 QRSD: 78 T: 81 QT: 316 QTc: 451 Interpretive Statements SINUS TACHYCARDIA ATRIAL PREMATURE COMPLEX(ES) LEFT ATRIAL ABNORMALITY ABNORMAL LEFT AXIS DEVIATION CONSIDER LEFT VENTRICULAR HYPERTROPHY T ABNORMALITY IN HIGH LATERAL LEADS Electronically Signed On 08-22-2016 20:26:59 CDT by La Griffin
[2016-08-22] MEDS ORDERED: DESFLURANE 61 TO 120 MINUTES IH ONE (10:50)
[2016-08-22] MEDS ORDERED: PROPOFOL 20 ML IV ONE (10:50)
[2016-08-22] MEDS ORDERED: ONDANSETRON PF 4 MG/2 ML VIAL. ONE (10:50)
[2016-08-22] MEDS ORDERED: LIDOCAINE 2% 100 MG/5 ML DISP.SYRIN. ONE (10:50)
[2016-08-22] MEDS ORDERED: DEXAMETHASONE SOD PHOS 20 MG/5 ML VIAL. ONE (10:50)
[2016-08-22] MEDS ORDERED: FENTANYL PF 100 MCG/2 ML VIAL. ONE ×2 (10:51→13:16)
[2016-08-22] MEDS ORDERED: CEFAZOLIN 1GM IVPB FOR OMNI 50 ML IV ONE ×2 (11:07→11:15)
[2016-08-22] MEDS ORDERED: PHENYLEPHRINE in 0.9% NACL PF 1 MG/10 ML DISP.SYRIN. IV ONE ×2 (11:16→12:16)
[2016-08-22] MEDS ORDERED: EPHEDRINE PF IN SALINE 50 MG/5 ML DISP.SYRIN. IV ONE (12:08)
[2016-08-22] MEDS: FENTANYL PF 100 MCG/2 ML VIAL. IV PRN ×2 (14:52→15:10)
[2016-08-22] MEDS ORDERED: DEXTROSE 50% 25 GM / 50ML DISP.SYRIN. IV PRN (15:00)
[2016-08-22] MEDS ORDERED: HYDROCODONE/APAP 7.5/325MG TABLET. PO PRN (15:00)
[2016-08-22] MEDS ORDERED: POLYETHYLENE GLYCOL 3350 17 GM PACKET. PO PRN (15:00)
[2016-08-22] MEDS ORDERED: MORPHINE SULFATE 4 MG/ML DISP.SYRIN. IV PRN (15:00)
--- NOTE | 2016-08-22 15:00 | PDOC ---
BRIEF OPERATIVE NOTE Date: Aug 22, 2016 Pre-Op Diagnosis intertroch/subtroch left hip fx, previous fixation femoral neck fx Post-Op Diagnosis same Procedure Performed Left hip hemiarthroplasty and cable plate fixation of it/st femur fx Surgeon Jeronimo Anesthesia Type: General Blood Loss 250cc Specimens Obtained 3 screws removed Findings above Complications none KACIE FUENTES MD Aug 22, 2016 14:59
[2016-08-22 15:09] LABS: HEMATOCRIT 30.4 % (36.0-47.0); HEMOGLOBIN 9.8 g/dL (12.0-15.5); WHITE BLOOD COUNT 16.3 x10^3/uL (4.0-11.0)
--- NOTE | 2016-08-22 15:29 | PDOC ---
GENERAL General: see dictated H&P. Problems: VITAL SIGNS Vital Signs: Vital Signs Date Time Temp Pulse Resp B/P Pulse Ox O2 Delivery O2 Flow Rate FiO2 08/22/16 15:10 22 95 Nasal Cannula 2.0 08/22/16 14:55 120 139/79 08/22/16 14:26 99.2 99.2 I & O I & O Intake and Output 08/22/16 07:00 Intake Total 1010 ml Output Total 500 ml Balance 510 ml Intake IV Total 1000 ml Blood Product IV Normal Saline Flush 10 ml Output Urine Total 500 ml ALLERGIES Allergies: Allergies Coded Allergies Type Severity Reaction Last Updated Verified amlodipine Adverse Reaction Intermediate Swelling 08/22/16 Yes MEDS Medications: Current Medications Medications (Trade) Dose Ordered Sig/Chrissie Start Time Stop Time Status Last Admin Dose Admin Acetaminophen/ Hydrocodone Bitart (Lortab 7.5/325) 2 tab PRN Q4HRS PRN 08/22/16 15:00 Albuterol/ Ipratropium (Duoneb) 3 ml 1X ONCE 08/21/16 23:00 08/21/16 23:01 DC 08/21/16 22:48 3 ML Bisacodyl (Dulcolax Supp) 10 mg 1X PRN PRN 08/23/16 16:00 08/24/16 15:59 Cefazolin Sodium (Ancef 1gm Ivpb For Omni) 50 ml @ 100 mls/hr 1X ONCE 08/22/16 11:15 08/22/16 11:44 DC 08/22/16 11:38 100 MLS/HR Cefazolin Sodium/ Sodium Chloride (Ancef/Iv Sodium Chloride 0.9% 50ml) 50 ml @ 100 mls/hr Q8H 08/22/16 18:00 08/23/16 02:29 Desflurane (Suprane) 60 ml STK-MED ONCE 08/22/16 10:50 08/22/16 10:51 DC Dexamethasone Sodium Phosphate (Decadron) 20 mg STK-MED ONCE 08/22/16 10:50 08/22/16 10:51 DC Dextrose 12.5 gm 12.5 gm PRN Q15MIN PRN 08/22/16 15:00 Ephedrine Sulfate 50 mg STK-MED ONCE 08/22/16 12:08 08/22/16 12:09 DC Fentanyl Citrate (Fentanyl 2ml Vial) 25 mcg PRN Q1HR PRN 08/22/16 15:00 Fentanyl Citrate 25 mcg 25 mcg PRN Q15MIN PRN 08/21/16 19:45 08/22/16 19:44 08/21/16 22:51 25 MCG Fentanyl Citrate 100 mcg 100 mcg STK-MED ONCE 08/22/16 10:51 08/22/16 10:52 DC Hydromorphone HCl (Dilaudid) 0.5 mg PRN Q10MIN PRN 08/22/16 07:30 08/23/16 07:29 Lactated Ringer's (Iv Lactated Ringers) 1,000 ml @ 30 mls/hr Q24H 08/22/16 07:20 08/22/16 19:19 08/22/16 11:00 30 MLS/HR Lidocaine HCl 100 mg STK-MED ONCE 08/22/16 10:50 08/22/16 10:51 DC Magnesium Hydroxide (Milk Of Magnesia) 2,400 mg 1X PRN PRN 08/23/16 06:00 08/24/16 05:59 Morphine Sulfate 4 mg PRN Q2HR PRN 08/22/16 15:00 Morphine Sulfate 1 mg 1 mg PRN Q10MIN PRN 08/22/16 07:30 08/23/16 07:29 Morphine Sulfate 2 mg 2 mg PRN Q2HR PRN 08/22/16 01:15 08/23/16 01:14 08/22/16 04:04 2 MG Ondansetron HCl (Zofran) 4 mg PRN Q4HRS PRN 08/22/16 15:00 Ondansetron HCl 4 mg 4 mg STK-MED ONCE 08/22/16 10:50 08/22/16 10:51 DC Oxycodone HCl (Roxicodone) 5 mg PRN Q3HRS PRN 08/22/16 15:00 Phenylephrine HCl 1 mg STK-MED ONCE 08/22/16 12:16 08/22/16 12:17 DC Polyethylene Glycol (miraLAX PACKET) 17 gm PRN DAILY PRN 08/22/16 15:00 Prochlorperazine Edisylate (Compazine) 5 mg PACU PRN PRN 08/22/16 07:30 08/23/16 07:29 Propofol (Diprivan) 20 ml @ As Directed STK-MED ONCE 08/22/16 10:50 08/22/16 10:51 DC Senna/Docusate Sodium (Senna Plus) 1 tab DAILY 08/23/16 09:00 Sodium Chloride (Iv Sodium Chloride 0.9% 500ml Bag) 500 ml @ 500 mls/hr 1X ONCE 08/21/16 23:00 08/21/16 23:59 DC 08/21/16 22:45 500 MLS/HR Sodium Chloride (Iv Sodium Chloride 0.9% 1000ml Bag) 1,000 ml @ 100 mls/hr Q10H 08/22/16 01:11 08/23/16 01:10 08/22/16 04:08 100 MLS/HR Warfarin Sodium (Coumadin Per Pharmacy) 1 each PRN DAILY PRN 08/23/16 15:00 LAB Lab: Laboratory Tests Test 08/21/16 20:05 08/21/16 20:35 08/21/16 21:15 08/21/16 21:54 Stool Occult Blood Negative (NEG) White Blood Count 17.2x10^3/uL (4.0-11.0) Red Blood Count 2.58x10^6/uL (3.50-5.40) Hemoglobin 7.6g/dL (12.0-15.5) Hematocrit 23.9% (36.0-47.0) Mean Corpuscular Volume 92fL (79-100) Mean Corpuscular Hemoglobin 29pg (25-35) Mean Corpuscular Hemoglobin Concent 32g/dL (31-37) Red Cell Distribution Width 16.0% (11.5-14.5) Platelet Count 416x10^3/uL (140-400) Neutrophils (%) (Auto) 82% (31-73) Lymphocytes (%) (Auto) 2% (24-48) Monocytes (%) (Auto) 16% (0-9) Eosinophils (%) (Auto) 0% (0-3) Basophils (%) (Auto) 0% (0-3) Neutrophils # (Auto) 14.2x10^3uL (1.8-7.7) Lymphocytes # (Auto) 0.3x10^3/uL (1.0-4.8) Monocytes # (Auto) 2.7x10^3/uL (0.0-1.1) Eosinophils # (Auto) 0.0x10^3/uL (0.0-0.7) Basophils # (Auto) 0.0x10^3/uL (0.0-0.2) Segmented Neutrophils % 91% (35-66) Lymphocytes % 1% (24-48) Monocytes % 4% (0-10) Metamyelocytes % 4% (0-0) Platelet Estimate Increased (ADEQUATE) Large Platelets Occ Giant Platelets Polychromasia Slight Ovalocytes Occ Stomatocytes Occ Prothrombin Time 14.4SEC (11.7-14.0) Prothromb Time International Ratio 1.2 (0.8-1.1) Activated Partial Thromboplast Time 26SEC (24-38) Sodium Level 142mmol/L (136-145) Potassium Level 3.7mmol/L (3.5-5.1) Chloride Level 101mmol/L (98-107) Carbon Dioxide Level 31mmol/L (21-32) Anion Gap 10 (6-14) 16mmol/L (6-14) Blood Urea Nitrogen 46mg/dL (7-20) Creatinine 1.6mg/dL (0.6-1.0) Estimated GFR (Cockcroft-Gault) 32.1 BUN/Creatinine Ratio 29 (6-20) Glucose Level 138mg/dL (70-99) 137mg/dL (70-99) Calcium Level 8.7mg/dL (8.5-10.1) Total Bilirubin 1.0mg/dL (0.2-1.0) Aspartate Amino Transf (AST/SGOT) 96U/L (15-37) Alanine Aminotransferase (ALT/SGPT) 66U/L (14-59) Alkaline Phosphatase 88U/L (46-116) Troponin I Quantitative 0.024ng/mL (0.000-0.055) DR-Vzc-C-Type Natriuretic Peptide 1131pg/mL (0-124) Total Protein 6.2g/dL (6.4-8.2) Albumin 3.4g/dL (3.4-5.0) Albumin/Globulin Ratio 1.2 (1.0-1.7) Bedside Hemoglobin 8.5g/dL (12-15) Bedside Hematocrit 25% (36-40) Bedside Sodium 136mmol/L (135-145) Bedside Potassium 3.3mmol/L (3.5-5.0) Bedside Chloride 96mmol/L (98-110) Bedside Total CO2 29mmol/L (23-32) Bedside Blood Urea Nitrogen 38mg/dL (8-26) Bedside Creatinine 1.5mg/dL (0.5-1.4) Bedside Ionized Calcium (Louie) 0.93mmol/L (1.13-1.32) O2 Saturation 93% (92-99) Arterial Blood pH 7.41 (7.35-7.45) Arterial Blood pCO2 at Patient Temp 50mmHg (35-46) Arterial Blood pO2 at Patient Temp 71mmHg (65-108) Arterial Blood HCO3 31mmol/L (21-28) Arterial Blood Base Excess 6mmol/L (-3-3) FiO2 32.0 Test 08/21/16 22:45 08/22/16 03:37 08/22/16 07:09 08/22/16 15:00 Urine Collection Type U cath Urine Color Yellow Urine Clarity Clear Urine pH 5.5 Urine Specific [place] 1.015 Urine Protein 100mg/dL (NEG-TRACE) Urine Glucose (UA) Negativemg/dL (NEG) Urine Ketones (Stick) Negativemg/dL (NEG) Urine Blood Small (NEG) Urine Nitrite Negative (NEG) Urine Bilirubin Small (NEG) Urine Urobilinogen Dipstick 1.0mg/dL (0.2 mg/dL) Urine Leukocyte Esterase Negative (NEG) Urine RBC Rare/HPF (0-2) Urine WBC Occ/HPF (0-4) Urine Squamous Epithelial Cells Occ/LPF Urine Transitional Epithelial Cells Occ/LPF Urine Bacteria 0/HPF (0-FEW) Urine Hyaline Casts Many/HPF Urine Mucus Marked/LPF Urine Opiates Screen Neg (NEG) Urine Methadone Screen Neg (NEG) Urine Barbiturates Neg (NEG) Urine Phencyclidine Screen Neg (NEG) Urine Amphetamine/Methamphetamine Neg (NEG) Urine Benzodiazepines Screen Pos (NEG) Urine Cocaine Screen Neg (NEG) Urine Cannabinoids Screen Neg (NEG) Urine Ethyl Alcohol Neg (NEG) Nasal Screen MRSA (PCR) Negative (Negative) Prothrombin Time 13.3SEC (11.7-14.0) Prothromb Time International Ratio 1.1 (0.8-1.1) White Blood Count 16.3x10^3/uL (4.0-11.0) Hemoglobin 9.8g/dL (12.0-15.5) Hematocrit 30.4% (36.0-47.0) Platelet Count 313x10^3/uL (140-400) JAMIN EVANS MD Aug 22, 2016 15:29
[2016-08-22] MEDS: IPRATRPIUM/ALBUTEROL 0.5/2.5MG 3 ML NEBU. NEB SCH ×2 (16:00→20:54)
[2016-08-22] MEDS ORDERED: WARFARIN 4 MG TABLET. PO ONE (16:00)
[2016-08-22] MEDS: CEFAZOLIN SODIUM 1 GM in IV NORMAL SALINE 50ML 50 ML IV SCH (17:27)
--- NOTE | 2016-08-22 19:51 | HP ---
ADMIT DATE: 08/21/2016 CHIEF COMPLAINT AND HISTORY OF PRESENT ILLNESS: This is a 70-year-old white female well known to me from followup in the office. I spoke with her son on this evening of admission and directed her towards the Emergency Room. The patient has had falls and had a left femur fracture. Open reduction and internal fixation a couple of weeks ago. She had not ____ go to fci at the time of discharge, ____ help at home with her and son. However, since being at home according to son she had fallen more than 10 times. She was found to have a new fracture and as well as black eye and facial bruising, admitted to the hospital where she will undergo repeat surgery and will definitely needs ____ at the time of discharge. PAST MEDICAL HISTORY: Remarkable for severe COPD. She has anxiety, depression, hypertension, chronic kidney disease, and history of back pain. PAST SURGICAL HISTORY: Remarkable for hysterectomy. MEDICATIONS: Brought with the patient, listed on the computer and have been addressed. ALLERGIES: SHE IS ALLERGIC TO AMLODIPINE. SOCIAL HISTORY: She is a reformed smoker, nondrinker, does not use drugs. , lives at home with and son. FAMILY HISTORY: Noncontributory. REVIEW OF SYSTEMS: Remarkable for the expected amount of pain with femur fracture. PHYSICAL EXAMINATION: GENERAL: She is well-developed, well-nourished white female who appears uncomfortable. VITAL SIGNS: Stable. She is afebrile. She is tachycardic but that is her baseline, she does have some bruising noted to the face, arms and legs. HEAD, EYES, EARS, NOSE AND THROAT: Remarkable for the bruising. NECK: Supple without bruit or thyromegaly. CHEST: Reveals decreased breath sounds, poor air movement, occasional wheeze. HEART: Tachycardic, regular, without S3, S4, or murmur. ABDOMEN: Soft, nontender, without hepatosplenomegaly or mass. EXTREMITIES: Without cyanosis, clubbing or edema. Her arms were cyanosis, clubbing. She does have some edema over the left hip area, there is some shortening and internal rotation of the left lower extremity. NEUROLOGIC: Intact. IMPRESSION: Fall with repeat femur fracture as noted above with multiple other problems listed above. PLAN: The patient was admitted. She was okay for surgery at this point in time. We will follow along and make sure the breathing treatments gets started postoperatively and the patient will most definitely need fci at this point in time until she was safe for discharge to home. JAMIN EVANS MD DR: JEEVAN/marni JOB#: [id number] / [id number]
--- NOTE | 2016-08-22 20:46 | OP ---
DATE OF SURGERY: 08/22/2016 PREOPERATIVE DIAGNOSIS: Left hip intertrochanteric/subtrochanteric hip fracture with previous intact fixation of femoral neck fracture. POSTOPERATIVE DIAGNOSIS: Left hip intertrochanteric/subtrochanteric hip fracture with previous intact fixation of femoral neck fracture. PROCEDURE: Operative reduction internal fixation with cable plate fixation of intertrochanteric/subtrochanteric hip fracture, hardware removal of 3 screws and cemented left hip hemiarthroplasty. SURGEON: Mumtaz Decker MD. ANESTHESIA: General endotracheal. ESTIMATED BLOOD LOSS: 250 mL. COMPLICATIONS: None. SPECIMENS: Include screws. OPERATIVE INDICATIONS: The patient is a 70-year-old female that had undergone fixation of a femoral neck fracture, was weightbearing as tolerated, doing quite well, but insisted on going home and according to her son, really told the social workers and staff that she had 24-hour nursing care and help at her home when she did not and in fact was taking care of her with Alzheimer's. She has had multiple falls, the most recent of which resulted in the hip fracture and has this displaced hip fracture and unable to bear weight. I told her that I would recommend at this point now to get any hardware in to adequately fix the fracture, we would have to remove the screws, fix the fracture, put in a hemiarthroplasty to replace the ball portion of her ball and socket joint of her hip and that my expectation would be generally that she can bear weight on that depending on how stable the fracture is, although this is a and difficult procedure and significant risks due to her medical condition and COPD as well as the possibility of infection, nonhealing, nerve or blood vessel damage, medical or other anesthetic complications among others. All her questions were answered. I did cover this information with her son as well who insists that postoperatively this time they are going to insist on a rehab situation for her until she can safely return home. Again all their questions were answered. They agreed to proceed with operative evaluation and treatment. DESCRIPTION OF PROCEDURE: The patient was identified, procedure verified, patient placed in the supine position on the operating table. After adequate amounts of general endotracheal anesthesia, she was placed decubitus, left side up. All bony prominences were well padded and she was stabilized with the Stulberg hip positioner. The left hip was then prepped and draped in standard sterile fashion. An incision was made incorporating the previous incision for fixation of the screws. She was noted to have a comminuted fracture with a separate fragment of the calcar and lesser trochanter as well as a separate greater trochanteric fragment on dissection through the iliotibial band and exposure to the proximal femur. I did verify my preoperative plan of cable plate fixation of the proximal femur with a trochanteric plate and the previous screw fixation was removed. The posterior approach was carried out to the left hip and capsule was split in a T fashion. External rotators were divided from their insertion and tagged and femoral head was removed and sized at a size 45. I then performed the provisional reduction of the proximal femur, but note that there was significant retention of bone above the calcar area that had to be removed to allow proper placement of the bipolar hemiarthroplasty. Hand reaming was first carried out and broaching of the femoral stem was carried out. Due to the instability, it was difficult to perform this with reduction of the fracture and therefore it was performed with the femur separately, size 12 Advocate hip prosthesis broach was used and trial fit in proper version which gave excellent stability, restorationist of her leg length and offset and with hand removal of some of the extra bone. The excellent reduction of the fracture fragments was able to be performed around the implant. Trial components were then removed. Thorough irrigation carried out with normal saline solution and Advocate femoral stem size 12, 125 mm stem length was cemented and placed proximally with gentamicin cement to the 11 mm distal centralizer. This was trial fit with a 45 mm outside diameter, 28 mm inside diameter bipolar cup with a 7 mm neck length. Once the stability was assessed, bipolar was reduced into the joint, fracture fragments were fixated with a total of 5 cables 4 through the plate and one additional fixation of the subtrochanteric posterior medial fragment and excellent reduction was noted under visualization. Bone graft that was taken from the femoral head was packed around the fracture site area and around the proximal stem. Excellent stability was noted. Hip capsule was repaired with #5 Ethibond sutures. External rotators were reattached transosseously with #5 Ethibond as well. Fascia was closed with #1 Vicryl suture, subcutaneous closure with buried Vicryl suture. Skin closure with rosy. Sterile dressings were applied. The patient was extubated and transferred to postop holding in stable condition having tolerated the procedure well. MUMTAZ DECKER MD DR: CHAI/marni JOB#: [id number] / [id number] JAMIN Mandujano MD
--- NOTE | 2016-08-23 01:32 | CONS ---
DATE OF CONSULTATION: 08/22/2016 REQUESTING PHYSICIANS: Dr. Connie Perez, [facility] and Dr. Jamin Ochoa. REASON FOR CONSULTATION: Left hip fracture. HISTORY OF PRESENT ILLNESS: The patient is a 70-year-old female that was recently admitted for a femoral neck fracture that underwent fixation with 3 screws on her left hip. She was discharged from inpatient acute care and according to her son stated that she had 24-hour home care, but essentially lied to the social workers and hospital staff about that fact while she was able to weightbear and get up and around, somewhat unfortunately her has Alzheimer's disease and she was anxious to get back home to care for him and apparently has had according to her son several falls soon after her return to home. She denied to the Emergency Department personnel any history of falling at all and tells me she does not recall that either. Her son states that she was actually found having fallen and could not get up and her was really unaware of the need to call for help. Eventually, however, she was brought to the Emergency Department by EMS with left hip pain and inability to bear weight. She was originally hypotensive on arrival to the Emergency Department, but better controlled now. PAST MEDICAL HISTORY: Significant for COPD, hypertension, kidney disease, anxiety, depression, chronic back pain. PAST SURGICAL HISTORY: Significant for hysterectomy and the above-mentioned fixation of her left hip fracture. ALLERGIES: INCLUDE AMLODIPINE. MEDICATIONS: List is reviewed. FAMILY HISTORY: Noncontributory. REVIEW OF SYSTEMS: Denies any focal weakness, numbness, tingling, chest pain. She does have baseline shortness of breath due to her COPD and is certainly conversational, but apparently a bit confused as she does not; either is not truthful about her falling or does not remember it. She denies any visual changes, headache, radiating pain into the extremities. No neck pain. She does have a baseline low back pain. No change in bowel or bladder habits, fever, chills, congestion, sore throat, pain on urination, abdominal pain. SOCIAL HISTORY: Lives at home with her with Alzheimer's. Denies smoking, alcohol or drug use. Son is involved in her care and was contacted preoperatively. PHYSICAL EXAMINATION: GENERAL: The patient is a pleasant, cooperative 70-year-old female. VITAL SIGNS: Temperature 98.1, pulse 110, respirations 16, blood pressure 157/94, 93% on 2-1/2 liters of oxygen nasal cannula. HEENT: She has a large bruise under her left eye. No facial instability, normal hearing. Extraocular motions intact. No neck pain on palpation. EXTREMITIES: She has good shoulder, elbow and wrist motion with just some diffuse soreness. Examination of the left hip reveals the hip to be shortened and externally rotated and painful with any range of motion. Her lateral wound is healed. There is no redness or erythema. She has normal examination of the right hip, bilateral knees and ankles with intact motor function, distal pulses, sensation, reflexes and skin in both upper and lower extremities throughout. IMAGING: X-rays show a subtrochanteric hip fracture. The fixation actually of her femoral neck fracture appears intact with placement of three screws; however, there appears to be a fracture that is in the intertrochanteric area where the screws were placed laterally extending down to subtrochanteric medially with obliquity. IMPRESSION: 1. Previous fixation of a femoral neck fracture. 2. Intertrochanteric femur fracture with subtrochanteric extension. TREATMENT PLAN: I had gone over with her and her son by phone the findings and the fact that despite the good positioning of the femoral neck really to effectively treat this, I have to remove the hardware and recommend placing a hemiarthroplasty and fixing her fracture with a cable fixation. I talked to her about the possible complications of infection, nonhealing, nerve or blood vessel damage, medical or other anesthetic complications among others and the expectation that typically her medical recovery would be the limiting factor in getting her up and around at home. Her son indicates that they are going to take precautions to keep her in rehab until she is really safe enough to function at home at this point. We will plan on taking her to surgical evaluation and treatment today. KACIE FUENTES MD DR: CHAI/marni JOB#: [id number] / [id number] JAMIN Mandujano MD
[2016-08-23 03:27] VITALS: BP 134/69
[2016-08-23] MEDS: CEFAZOLIN SODIUM 1 GM in IV NORMAL SALINE 50ML 50 ML IV SCH (06:00)
[2016-08-23] MEDS ORDERED: MAGNESIUM HYDROXIDE 2,400 MG/30 ML ORAL.SUSP. PO PRN (06:00)
[2016-08-23 06:03] LABS: INR 1.3 (0.8-1.1); PROTHROMBIN TIME PATIENT 15.8 SEC (11.7-14.0)
[2016-08-23 06:13] LABS: CALCIUM 7.7 mg/dL (8.5-10.1); CREATININE 0.9 mg/dL (0.6-1.0); GFR 62.3; POTASSIUM 3.7 mmol/L (3.5-5.1)
[2016-08-23 07:00] VITALS: BP 130/75
[2016-08-23 07:17] LABS: BASO % 0 % (0-3); EOS % 0 % (0-3); HEMOGLOBIN 8.5 g/dL (12.0-15.5); LYMPH # 0.6 x10^3/uL (1.0-4.8); LYMPH % 4 % (24-48); MEAN CORPUSCULAR HEMOGLOBIN 29 pg (25-35); MEAN CORPUSCULAR HGB CONC 32 g/dL (31-37); MEAN CORPUSCULAR VOLUME 91 fL (79-100); MONO % 12 % (0-9); NEUT % 85 % (31-73); PLATELET COUNT 301 x10^3/uL (140-400); RED BLOOD COUNT 2.97 x10^6/uL (3.50-5.40); WHITE BLOOD COUNT 17.2 x10^3/uL (4.0-11.0)
[2016-08-23] MEDS: IPRATRPIUM/ALBUTEROL 0.5/2.5MG 3 ML NEBU. NEB SCH ×4 (07:31→19:29)
[2016-08-23] MEDS: HYDROCHLOROTHIAZIDE 12.5 MG CAPSULE. PO SCH (08:43)
[2016-08-23] MEDS: LOSARTAN POTASSIUM 50 MG TABLET. PO SCH (08:44)
[2016-08-23] MEDS: SENNOSIDES/DOCUSATE 8.6/50MG TABLET. PO SCH (08:44)
[2016-08-23] MEDS ORDERED: HYDROCHLOROTHIAZIDE PO SCH (09:00)
[2016-08-23] MEDS ORDERED: VALSARTAN PO SCH (09:00)
[2016-08-23] MEDS ORDERED: [UNRECOGNIZED DRUG - OTHER] PO SCH (09:00)
--- NOTE | 2016-08-23 09:18 | RAD ---
Indication: Hip fracture. Technique: AP view of the pelvis to include the entirety of the left femoral hardware was obtained. Comparison is from one day earlier. Findings: There has been placement of a plate as well as cerclage wires across the new proximal left femur fracture. There is improved alignment of fragments. In addition, the partially threaded screws have been removed and replaced with a femoral stem prosthesis, alignment with the [place] acetabulum within normal limits. Impression: Postoperative findings in the left hip.
--- NOTE | 2016-08-23 10:13 | PDOC ---
PROGRESS NOTES Subjective Subjective Problems overnight:hip feels better, confused, did not remember falls, only that she had surgery on her legs, said she lives alone Objective Vital Signs Vital Signs Date Time Temp Pulse Resp B/P Pulse Ox O2 Delivery O2 Flow Rate FiO2 08/23/16 08:44 108 130/75 08/23/16 07:32 96 Nasal Cannula 3.0 08/23/16 07:00 98.3 16 98.3 Physical Exam hip incision clean intact, no pain with rom, neuro intact Labs Laboratory Tests Test 08/21/16 20:05 08/21/16 20:35 08/21/16 21:15 08/21/16 21:54 Stool Occult Blood Negative (NEG) White Blood Count 17.2x10^3/uL (4.0-11.0) Red Blood Count 2.58x10^6/uL (3.50-5.40) Hemoglobin 7.6g/dL (12.0-15.5) Hematocrit 23.9% (36.0-47.0) Mean Corpuscular Volume 92fL (79-100) Mean Corpuscular Hemoglobin 29pg (25-35) Mean Corpuscular Hemoglobin Concent 32g/dL (31-37) Red Cell Distribution Width 16.0% (11.5-14.5) Platelet Count 416x10^3/uL (140-400) Neutrophils (%) (Auto) 82% (31-73) Lymphocytes (%) (Auto) 2% (24-48) Monocytes (%) (Auto) 16% (0-9) Eosinophils (%) (Auto) 0% (0-3) Basophils (%) (Auto) 0% (0-3) Neutrophils # (Auto) 14.2x10^3uL (1.8-7.7) Lymphocytes # (Auto) 0.3x10^3/uL (1.0-4.8) Monocytes # (Auto) 2.7x10^3/uL (0.0-1.1) Eosinophils # (Auto) 0.0x10^3/uL (0.0-0.7) Basophils # (Auto) 0.0x10^3/uL (0.0-0.2) Segmented Neutrophils % 91% (35-66) Lymphocytes % 1% (24-48) Monocytes % 4% (0-10) Metamyelocytes % 4% (0-0) Platelet Estimate Increased (ADEQUATE) Large Platelets Occ Giant Platelets Polychromasia Slight Ovalocytes Occ Stomatocytes Occ Prothrombin Time 14.4SEC (11.7-14.0) Prothromb Time International Ratio 1.2 (0.8-1.1) Activated Partial Thromboplast Time 26SEC (24-38) Sodium Level 142mmol/L (136-145) Potassium Level 3.7mmol/L (3.5-5.1) Chloride Level 101mmol/L (98-107) Carbon Dioxide Level 31mmol/L (21-32) Anion Gap 10 (6-14) 16mmol/L (6-14) Blood Urea Nitrogen 46mg/dL (7-20) Creatinine 1.6mg/dL (0.6-1.0) Estimated GFR (Cockcroft-Gault) 32.1 BUN/Creatinine Ratio 29 (6-20) Glucose Level 138mg/dL (70-99) 137mg/dL (70-99) Calcium Level 8.7mg/dL (8.5-10.1) Total Bilirubin 1.0mg/dL (0.2-1.0) Aspartate Amino Transf (AST/SGOT) 96U/L (15-37) Alanine Aminotransferase (ALT/SGPT) 66U/L (14-59) Alkaline Phosphatase 88U/L (46-116) Troponin I Quantitative 0.024ng/mL (0.000-0.055) LD-Meh-H-Type Natriuretic Peptide 1131pg/mL (0-124) Total Protein 6.2g/dL (6.4-8.2) Albumin 3.4g/dL (3.4-5.0) Albumin/Globulin Ratio 1.2 (1.0-1.7) Bedside Hemoglobin 8.5g/dL (12-15) Bedside Hematocrit 25% (36-40) Bedside Sodium 136mmol/L (135-145) Bedside Potassium 3.3mmol/L (3.5-5.0) Bedside Chloride 96mmol/L (98-110) Bedside Total CO2 29mmol/L (23-32) Bedside Blood Urea Nitrogen 38mg/dL (8-26) Bedside Creatinine 1.5mg/dL (0.5-1.4) Bedside Ionized Calcium (Louie) 0.93mmol/L (1.13-1.32) O2 Saturation 93% (92-99) Arterial Blood pH 7.41 (7.35-7.45) Arterial Blood pCO2 at Patient Temp 50mmHg (35-46) Arterial Blood pO2 at Patient Temp 71mmHg (65-108) Arterial Blood HCO3 31mmol/L (21-28) Arterial Blood Base Excess 6mmol/L (-3-3) FiO2 32.0 Test 08/21/16 22:45 08/22/16 03:37 08/22/16 07:09 08/22/16 15:00 Urine Collection Type U cath Urine Color Yellow Urine Clarity Clear Urine pH 5.5 Urine Specific [place] 1.015 Urine Protein 100mg/dL (NEG-TRACE) Urine Glucose (UA) Negativemg/dL (NEG) Urine Ketones (Stick) Negativemg/dL (NEG) Urine Blood Small (NEG) Urine Nitrite Negative (NEG) Urine Bilirubin Small (NEG) Urine Urobilinogen Dipstick 1.0mg/dL (0.2 mg/dL) Urine Leukocyte Esterase Negative (NEG) Urine RBC Rare/HPF (0-2) Urine WBC Occ/HPF (0-4) Urine Squamous Epithelial Cells Occ/LPF Urine Transitional Epithelial Cells Occ/LPF Urine Bacteria 0/HPF (0-FEW) Urine Hyaline Casts Many/HPF Urine Mucus Marked/LPF Urine Opiates Screen Neg (NEG) Urine Methadone Screen Neg (NEG) Urine Barbiturates Neg (NEG) Urine Phencyclidine Screen Neg (NEG) Urine Amphetamine/Methamphetamine Neg (NEG) Urine Benzodiazepines Screen Pos (NEG) Urine Cocaine Screen Neg (NEG) Urine Cannabinoids Screen Neg (NEG) Urine Ethyl Alcohol Neg (NEG) Nasal Screen MRSA (PCR) Negative (Negative) Prothrombin Time 13.3SEC (11.7-14.0) Prothromb Time International Ratio 1.1 (0.8-1.1) White Blood Count 16.3x10^3/uL (4.0-11.0) Hemoglobin 9.8g/dL (12.0-15.5) Hematocrit 30.4% (36.0-47.0) Platelet Count 313x10^3/uL (140-400) Test 08/23/16 05:00 White Blood Count 17.2x10^3/uL (4.0-11.0) Red Blood Count 2.97x10^6/uL (3.50-5.40) Hemoglobin 8.5g/dL (12.0-15.5) Hematocrit 27.0% (36.0-47.0) Mean Corpuscular Volume 91fL (79-100) Mean Corpuscular Hemoglobin 29pg (25-35) Mean Corpuscular Hemoglobin Concent 32g/dL (31-37) Red Cell Distribution Width 16.0% (11.5-14.5) Platelet Count 301x10^3/uL (140-400) Neutrophils (%) (Auto) 85% (31-73) Lymphocytes (%) (Auto) 4% (24-48) Monocytes (%) (Auto) 12% (0-9) Eosinophils (%) (Auto) 0% (0-3) Basophils (%) (Auto) 0% (0-3) Neutrophils # (Auto) 14.6x10^3uL (1.8-7.7) Lymphocytes # (Auto) 0.6x10^3/uL (1.0-4.8) Monocytes # (Auto) 2.0x10^3/uL (0.0-1.1) Eosinophils # (Auto) 0.0x10^3/uL (0.0-0.7) Basophils # (Auto) 0.0x10^3/uL (0.0-0.2) Prothrombin Time 15.8SEC (11.7-14.0) Prothromb Time International Ratio 1.3 (0.8-1.1) Sodium Level 144mmol/L (136-145) Potassium Level 3.7mmol/L (3.5-5.1) Chloride Level 107mmol/L (98-107) Carbon Dioxide Level 28mmol/L (21-32) Anion Gap 9 (6-14) Blood Urea Nitrogen 30mg/dL (7-20) Creatinine 0.9mg/dL (0.6-1.0) Estimated GFR (Cockcroft-Gault) 62.3 Glucose Level 91mg/dL (70-99) Calcium Level 7.7mg/dL (8.5-10.1) Laboratory Tests Test 08/22/16 15:00 08/23/16 05:00 White Blood Count 16.3x10^3/uL (4.0-11.0) 17.2x10^3/uL (4.0-11.0) Hemoglobin 9.8g/dL (12.0-15.5) 8.5g/dL (12.0-15.5) Hematocrit 30.4% (36.0-47.0) 27.0% (36.0-47.0) Platelet Count 313x10^3/uL (140-400) 301x10^3/uL (140-400) Red Blood Count 2.97x10^6/uL (3.50-5.40) Mean Corpuscular Volume 91fL (79-100) Mean Corpuscular Hemoglobin 29pg (25-35) Mean Corpuscular Hemoglobin Concent 32g/dL (31-37) Red Cell Distribution Width 16.0% (11.5-14.5) Neutrophils (%) (Auto) 85% (31-73) Lymphocytes (%) (Auto) 4% (24-48) Monocytes (%) (Auto) 12% (0-9) Eosinophils (%) (Auto) 0% (0-3) Basophils (%) (Auto) 0% (0-3) Neutrophils # (Auto) 14.6x10^3uL (1.8-7.7) Lymphocytes # (Auto) 0.6x10^3/uL (1.0-4.8) Monocytes # (Auto) 2.0x10^3/uL (0.0-1.1) Eosinophils # (Auto) 0.0x10^3/uL (0.0-0.7) Basophils # (Auto) 0.0x10^3/uL (0.0-0.2) Prothrombin Time 15.8SEC (11.7-14.0) Prothromb Time International Ratio 1.3 (0.8-1.1) Sodium Level 144mmol/L (136-145) Potassium Level 3.7mmol/L (3.5-5.1) Chloride Level 107mmol/L (98-107) Carbon Dioxide Level 28mmol/L (21-32) Anion Gap 9 (6-14) Blood Urea Nitrogen 30mg/dL (7-20) Creatinine 0.9mg/dL (0.6-1.0) Estimated GFR (Cockcroft-Gault) 62.3 Glucose Level 91mg/dL (70-99) Calcium Level 7.7mg/dL (8.5-10.1) Imaging postop xrays show good fx fixation and well placed tiffany hip Assessment Assessment POD# [1], S/P [orif and hip tiffany] Problems: Plan Plan of Care WBAT, pillow between legs in bed, no need for strict hip precautions mobilize with pt son emphasized their plans for SNF on dc because of with Alzheimers and her confusion and limitations KACIE FUENTES MD Aug 23, 2016 10:13
[2016-08-23 11:00] VITALS: BP 111/55
--- NOTE | 2016-08-23 11:28 | PDOC ---
GENERAL General: vss and afebrile. little tachycardic which is her baseline. Hb 8.5 this am. 2 sons in attendance and patient some confused. will need snu at ms for sure. surgical procedure reviewed. WBC 17.2K and INR 1.3. chest with decreased breath sounds and clear. NV exam left leg ok. Problems: VITAL SIGNS Vital Signs: Vital Signs Date Time Temp Pulse Resp B/P Pulse Ox O2 Delivery O2 Flow Rate FiO2 08/23/16 11:18 96 Nasal Cannula 3.0 08/23/16 11:00 98.0 111 20 111/55 98.0 I & O I & O Intake and Output 08/23/16 07:00 Intake Total 4201 ml Output Total 1650 ml Balance 2551 ml Intake Oral 130 ml IV Total 2832 ml Other 1239 ml Output Urine Total 1400 ml Estimated Blood Loss 250 ml ALLERGIES Allergies: Allergies Coded Allergies Type Severity Reaction Last Updated Verified amlodipine Adverse Reaction Intermediate Swelling 08/22/16 Yes MEDS Medications: Current Medications Medications (Trade) Dose Ordered Sig/Chrissie Start Time Stop Time Status Last Admin Dose Admin Acetaminophen/ Hydrocodone Bitart (Lortab 7.5/325) 2 tab PRN Q4HRS PRN 08/22/16 15:00 Albuterol/ Ipratropium (Duoneb) 3 ml RTQID 08/22/16 16:00 08/23/16 11:18 3 ML Bisacodyl (Dulcolax Supp) 10 mg 1X PRN PRN 08/23/16 16:00 08/24/16 15:59 Cefazolin Sodium (Ancef 1gm Ivpb For Omni) 50 ml @ 100 mls/hr 1X ONCE 08/22/16 11:15 08/22/16 11:44 DC 08/22/16 11:38 100 MLS/HR Cefazolin Sodium/ Sodium Chloride (Ancef/Iv Sodium Chloride 0.9% 50ml) 50 ml @ 100 mls/hr Q8H 08/22/16 18:00 08/23/16 02:29 DC 08/23/16 06:00 100 MLS/HR Desflurane (Suprane) 60 ml STK-MED ONCE 08/22/16 10:50 08/22/16 10:51 DC Dexamethasone Sodium Phosphate (Decadron) 20 mg STK-MED ONCE 08/22/16 10:50 08/22/16 10:51 DC Dextrose 12.5 gm 12.5 gm PRN Q15MIN PRN 08/22/16 15:00 Ephedrine Sulfate 50 mg STK-MED ONCE 08/22/16 12:08 08/22/16 12:09 DC Fentanyl Citrate (Fentanyl 2ml Vial) 25 mcg PRN Q1HR PRN 08/22/16 15:00 Fentanyl Citrate 25 mcg 25 mcg PRN Q15MIN PRN 08/21/16 19:45 08/22/16 19:44 DC 08/21/16 22:51 25 MCG Fentanyl Citrate 100 mcg 100 mcg STK-MED ONCE 08/22/16 10:51 08/22/16 10:52 DC Hydrochlorothiazide (Microzide) 12.5 mg DAILY 08/23/16 09:00 08/23/16 08:43 12.5 MG Hydromorphone HCl (Dilaudid) 0.5 mg PRN Q10MIN PRN 08/22/16 07:30 08/23/16 07:29 DC Lactated Ringer's (Iv Lactated Ringers) 1,000 ml @ 30 mls/hr Q24H 08/22/16 07:20 08/22/16 19:19 DC 08/22/16 11:00 30 MLS/HR Lidocaine HCl 100 mg STK-MED ONCE 08/22/16 10:50 08/22/16 10:51 DC Losartan Potassium (Cozaar) 100 mg DAILY 08/23/16 09:00 08/23/16 08:44 100 MG Magnesium Hydroxide (Milk Of Magnesia) 2,400 mg 1X PRN PRN 08/23/16 06:00 08/24/16 05:59 Morphine Sulfate 4 mg PRN Q2HR PRN 08/22/16 15:00 Morphine Sulfate 1 mg 1 mg PRN Q10MIN PRN 08/22/16 07:30 08/23/16 07:29 DC Morphine Sulfate 2 mg 2 mg PRN Q2HR PRN 08/22/16 01:15 08/23/16 01:14 DC 08/22/16 17:27 2 MG Non-Formulary Medication 1 each DAILY 08/23/16 09:00 UNV Ondansetron HCl (Zofran) 4 mg PRN Q4HRS PRN 08/22/16 15:00 Ondansetron HCl 4 mg 4 mg STK-MED ONCE 08/22/16 10:50 08/22/16 10:51 DC Oxycodone HCl (Roxicodone) 5 mg PRN Q3HRS PRN 08/22/16 15:00 Phenylephrine HCl 1 mg STK-MED ONCE 08/22/16 12:16 08/22/16 12:17 DC Polyethylene Glycol (miraLAX PACKET) 17 gm PRN DAILY PRN 08/22/16 15:00 Prochlorperazine Edisylate (Compazine) 5 mg PACU PRN PRN 08/22/16 07:30 08/23/16 07:29 DC Propofol (Diprivan) 20 ml @ As Directed STK-MED ONCE 08/22/16 10:50 08/22/16 10:51 DC Senna/Docusate Sodium (Senna Plus) 1 tab DAILY 08/23/16 09:00 Sodium Chloride (Iv Sodium Chloride 0.9% 500ml Bag) 500 ml @ 500 mls/hr 1X ONCE 08/21/16 23:00 08/21/16 23:59 DC 08/21/16 22:45 500 MLS/HR Sodium Chloride (Iv Sodium Chloride 0.9% 1000ml Bag) 1,000 ml @ 100 mls/hr Q10H 08/22/16 01:11 08/23/16 01:10 DC 08/22/16 21:52 100 MLS/HR Warfarin Sodium (Coumadin Per Pharmacy) 1 each PRN DAILY PRN 08/23/16 15:00 08/22/16 15:30 1 EACH Warfarin Sodium (Coumadin) 4 mg 1X WARF ONCE 08/22/16 16:00 08/22/16 16:01 DC 08/22/16 17:27 4 MG LAB Lab: Laboratory Tests Test 08/22/16 15:00 08/23/16 05:00 White Blood Count 16.3x10^3/uL (4.0-11.0) 17.2x10^3/uL (4.0-11.0) Hemoglobin 9.8g/dL (12.0-15.5) 8.5g/dL (12.0-15.5) Hematocrit 30.4% (36.0-47.0) 27.0% (36.0-47.0) Platelet Count 313x10^3/uL (140-400) 301x10^3/uL (140-400) Red Blood Count 2.97x10^6/uL (3.50-5.40) Mean Corpuscular Volume 91fL (79-100) Mean Corpuscular Hemoglobin 29pg (25-35) Mean Corpuscular Hemoglobin Concent 32g/dL (31-37) Red Cell Distribution Width 16.0% (11.5-14.5) Neutrophils (%) (Auto) 85% (31-73) Lymphocytes (%) (Auto) 4% (24-48) Monocytes (%) (Auto) 12% (0-9) Eosinophils (%) (Auto) 0% (0-3) Basophils (%) (Auto) 0% (0-3) Neutrophils # (Auto) 14.6x10^3uL (1.8-7.7) Lymphocytes # (Auto) 0.6x10^3/uL (1.0-4.8) Monocytes # (Auto) 2.0x10^3/uL (0.0-1.1) Eosinophils # (Auto) 0.0x10^3/uL (0.0-0.7) Basophils # (Auto) 0.0x10^3/uL (0.0-0.2) Prothrombin Time 15.8SEC (11.7-14.0) Prothromb Time International Ratio 1.3 (0.8-1.1) Sodium Level 144mmol/L (136-145) Potassium Level 3.7mmol/L (3.5-5.1) Chloride Level 107mmol/L (98-107) Carbon Dioxide Level 28mmol/L (21-32) Anion Gap 9 (6-14) Blood Urea Nitrogen 30mg/dL (7-20) Creatinine 0.9mg/dL (0.6-1.0) Estimated GFR (Cockcroft-Gault) 62.3 Glucose Level 91mg/dL (70-99) Calcium Level 7.7mg/dL (8.5-10.1) JAMIN EVANS MD Aug 23, 2016 11:28
[2016-08-23 15:00] VITALS: BP 102/68
[2016-08-23 15:13] LABS: HEMOGLOBIN 8.9 g/dL (12.0-15.5)
[2016-08-23] MEDS ORDERED: BISACODYL 10 MG SUPP.RECT PR PRN (16:00)
[2016-08-23] MEDS ORDERED: WARFARIN 4 MG TABLET. PO ONE (16:00)
[2016-08-23 19:10] VITALS: BP 105/60
[2016-08-23 23:05] VITALS: BP 137/83
[2016-08-24 03:08] VITALS: BP 130/84
[2016-08-24 04:27] LABS: INR 1.7 (0.8-1.1); PROTHROMBIN TIME PATIENT 18.6 SEC (11.7-14.0)
[2016-08-24 07:00] VITALS: BP 140/84
[2016-08-24] MEDS: IPRATRPIUM/ALBUTEROL 0.5/2.5MG 3 ML NEBU. NEB SCH ×5 (07:19→19:37)
--- NOTE | 2016-08-24 08:02 | PDOC ---
GENERAL General: vss and afebrile. baseline tachycardia. Hb 8.9. sleepy this am. chest with decreased breath sounds but clear. leg same. INR 1.7. will get snu eval and continue same. Problems: VITAL SIGNS Vital Signs: Vital Signs Date Time Temp Pulse Resp B/P Pulse Ox O2 Delivery O2 Flow Rate FiO2 08/24/16 07:19 99 Nasal Cannula 3.0 08/24/16 03:08 98.6 114 18 130/84 98.6 I & O I & O Intake and Output 08/24/16 07:00 Intake Total 150 ml Output Total 1250 ml Balance -1100 ml Intake Oral 150 ml Output Urine Total 1250 ml ALLERGIES Allergies: Allergies Coded Allergies Type Severity Reaction Last Updated Verified amlodipine Adverse Reaction Intermediate Swelling 08/22/16 Yes MEDS Medications: Current Medications Medications (Trade) Dose Ordered Sig/Chrissie Start Time Stop Time Status Last Admin Dose Admin Acetaminophen/ Hydrocodone Bitart (Lortab 7.5/325) 2 tab PRN Q4HRS PRN 08/22/16 15:00 Albuterol/ Ipratropium (Duoneb) 3 ml RTQID 08/22/16 16:00 08/24/16 07:19 3 ML Bisacodyl (Dulcolax Supp) 10 mg 1X PRN PRN 08/23/16 16:00 08/24/16 15:59 Cefazolin Sodium (Ancef 1gm Ivpb For Omni) 50 ml @ 100 mls/hr 1X ONCE 08/22/16 11:15 08/22/16 11:44 DC 08/22/16 11:38 100 MLS/HR Cefazolin Sodium/ Sodium Chloride (Ancef/Iv Sodium Chloride 0.9% 50ml) 50 ml @ 100 mls/hr Q8H 08/22/16 18:00 08/23/16 02:29 DC 08/23/16 06:00 100 MLS/HR Desflurane (Suprane) 60 ml STK-MED ONCE 08/22/16 10:50 08/22/16 10:51 DC Dexamethasone Sodium Phosphate (Decadron) 20 mg STK-MED ONCE 08/22/16 10:50 08/22/16 10:51 DC Dextrose 12.5 gm 12.5 gm PRN Q15MIN PRN 08/22/16 15:00 Ephedrine Sulfate 50 mg STK-MED ONCE 08/22/16 12:08 08/22/16 12:09 DC Fentanyl Citrate (Fentanyl 2ml Vial) 25 mcg PRN Q1HR PRN 08/22/16 15:00 Fentanyl Citrate 25 mcg 25 mcg PRN Q15MIN PRN 08/21/16 19:45 08/22/16 19:44 DC 08/21/16 22:51 25 MCG Fentanyl Citrate 100 mcg 100 mcg STK-MED ONCE 08/22/16 10:51 08/22/16 10:52 DC Hydrochlorothiazide (Microzide) 12.5 mg DAILY 08/23/16 09:00 08/23/16 08:43 12.5 MG Hydromorphone HCl (Dilaudid) 0.5 mg PRN Q10MIN PRN 08/22/16 07:30 08/23/16 07:29 DC Lactated Ringer's (Iv Lactated Ringers) 1,000 ml @ 30 mls/hr Q24H 08/22/16 07:20 08/22/16 19:19 DC 08/22/16 11:00 30 MLS/HR Lidocaine HCl 100 mg STK-MED ONCE 08/22/16 10:50 08/22/16 10:51 DC Losartan Potassium (Cozaar) 100 mg DAILY 08/23/16 09:00 08/23/16 08:44 100 MG Magnesium Hydroxide (Milk Of Magnesia) 2,400 mg 1X PRN PRN 08/23/16 06:00 08/24/16 05:59 DC Morphine Sulfate 4 mg PRN Q2HR PRN 08/22/16 15:00 Morphine Sulfate 1 mg 1 mg PRN Q10MIN PRN 08/22/16 07:30 08/23/16 07:29 DC Morphine Sulfate 2 mg 2 mg PRN Q2HR PRN 08/22/16 01:15 08/23/16 01:14 DC 08/22/16 17:27 2 MG Non-Formulary Medication 1 each DAILY 08/23/16 09:00 UNV Ondansetron HCl (Zofran) 4 mg PRN Q4HRS PRN 08/22/16 15:00 Ondansetron HCl 4 mg 4 mg STK-MED ONCE 08/22/16 10:50 08/22/16 10:51 DC Oxycodone HCl (Roxicodone) 5 mg PRN Q3HRS PRN 08/22/16 15:00 Phenylephrine HCl 1 mg STK-MED ONCE 08/22/16 12:16 08/22/16 12:17 DC Polyethylene Glycol (miraLAX PACKET) 17 gm PRN DAILY PRN 08/22/16 15:00 Prochlorperazine Edisylate (Compazine) 5 mg PACU PRN PRN 08/22/16 07:30 08/23/16 07:29 DC Propofol (Diprivan) 20 ml @ As Directed STK-MED ONCE 08/22/16 10:50 08/22/16 10:51 DC Senna/Docusate Sodium (Senna Plus) 1 tab DAILY 08/23/16 09:00 Sodium Chloride (Iv Sodium Chloride 0.9% 500ml Bag) 500 ml @ 500 mls/hr 1X ONCE 08/21/16 23:00 08/21/16 23:59 DC 08/21/16 22:45 500 MLS/HR Sodium Chloride (Iv Sodium Chloride 0.9% 1000ml Bag) 1,000 ml @ 100 mls/hr Q10H 08/22/16 01:11 08/23/16 01:10 DC 08/22/16 21:52 100 MLS/HR Warfarin Sodium (Coumadin Per Pharmacy) 1 each PRN DAILY PRN 08/23/16 15:00 08/23/16 15:17 1 EACH Warfarin Sodium (Coumadin) 4 mg 1X WARF ONCE 08/23/16 16:00 08/23/16 16:01 DC 08/23/16 16:39 4 MG LAB Lab: Laboratory Tests Test 08/23/16 15:00 08/24/16 03:22 Hemoglobin 8.9g/dL (12.0-15.5) Hematocrit 28.0% (36.0-47.0) Mean Corpuscular Hemoglobin Concent 32g/dL (31-37) Prothrombin Time 18.6SEC (11.7-14.0) Prothromb Time International Ratio 1.7 (0.8-1.1) JAMIN EVANS MD Aug 24, 2016 08:02
--- NOTE | 2016-08-24 09:13 | PDOC ---
PROGRESS NOTES Subjective Subjective Problems overnight: No complaints today getting up and around reasonably well with physical therapy Objective Vital Signs Vital Signs Date Time Temp Pulse Resp B/P Pulse Ox O2 Delivery O2 Flow Rate FiO2 08/24/16 07:19 99 Nasal Cannula 3.0 08/24/16 03:08 98.6 114 18 130/84 98.6 Physical Exam Mild swelling in her thigh incision clean dry and intact has an Aquasol dressing on it now. Good hip range of motion no pain on bearing weight Labs Laboratory Tests Test 08/22/16 15:00 08/23/16 05:00 08/23/16 15:00 08/24/16 03:22 White Blood Count 16.3x10^3/uL (4.0-11.0) 17.2x10^3/uL (4.0-11.0) Hemoglobin 9.8g/dL (12.0-15.5) 8.5g/dL (12.0-15.5) 8.9g/dL (12.0-15.5) Hematocrit 30.4% (36.0-47.0) 27.0% (36.0-47.0) 28.0% (36.0-47.0) Platelet Count 313x10^3/uL (140-400) 301x10^3/uL (140-400) Red Blood Count 2.97x10^6/uL (3.50-5.40) Mean Corpuscular Volume 91fL (79-100) Mean Corpuscular Hemoglobin 29pg (25-35) Mean Corpuscular Hemoglobin Concent 32g/dL (31-37) 32g/dL (31-37) Red Cell Distribution Width 16.0% (11.5-14.5) Neutrophils (%) (Auto) 85% (31-73) Lymphocytes (%) (Auto) 4% (24-48) Monocytes (%) (Auto) 12% (0-9) Eosinophils (%) (Auto) 0% (0-3) Basophils (%) (Auto) 0% (0-3) Neutrophils # (Auto) 14.6x10^3uL (1.8-7.7) Lymphocytes # (Auto) 0.6x10^3/uL (1.0-4.8) Monocytes # (Auto) 2.0x10^3/uL (0.0-1.1) Eosinophils # (Auto) 0.0x10^3/uL (0.0-0.7) Basophils # (Auto) 0.0x10^3/uL (0.0-0.2) Prothrombin Time 15.8SEC (11.7-14.0) 18.6SEC (11.7-14.0) Prothromb Time International Ratio 1.3 (0.8-1.1) 1.7 (0.8-1.1) Sodium Level 144mmol/L (136-145) Potassium Level 3.7mmol/L (3.5-5.1) Chloride Level 107mmol/L (98-107) Carbon Dioxide Level 28mmol/L (21-32) Anion Gap 9 (6-14) Blood Urea Nitrogen 30mg/dL (7-20) Creatinine 0.9mg/dL (0.6-1.0) Estimated GFR (Cockcroft-Gault) 62.3 Glucose Level 91mg/dL (70-99) Calcium Level 7.7mg/dL (8.5-10.1) Laboratory Tests Test 08/23/16 15:00 08/24/16 03:22 Hemoglobin 8.9g/dL (12.0-15.5) Hematocrit 28.0% (36.0-47.0) Mean Corpuscular Hemoglobin Concent 32g/dL (31-37) Prothrombin Time 18.6SEC (11.7-14.0) Prothromb Time International Ratio 1.7 (0.8-1.1) Assessment Assessment POD# [2], S/P [ORIF subtrochanteric femur fracture and left hip hemiarthroplasty ] Problems: Plan Plan of Care Talked to Derik about residential facility placement when medically stable Weightbearing as tolerated. Only hip precautions are pillow between legs in bed KACIE FUENTES MD Aug 24, 2016 09:13
[2016-08-24] MEDS: OXYCODONE IR 5 MG TABLET. PO PRN ×2 (09:27→16:20)
[2016-08-24] MEDS: SENNOSIDES/DOCUSATE 8.6/50MG TABLET. PO SCH (09:28)
[2016-08-24] MEDS: LOSARTAN POTASSIUM 50 MG TABLET. PO SCH (09:28)
[2016-08-24] MEDS: HYDROCHLOROTHIAZIDE 12.5 MG CAPSULE. PO SCH (09:28)
[2016-08-24 11:00] VITALS: BP 139/84
[2016-08-24 15:00] VITALS: BP 121/61
[2016-08-24] MEDS ORDERED: WARFARIN 2.5 MG TABLET. PO ONE (16:00)
[2016-08-24 19:15] VITALS: BP 114/73
[2016-08-24 23:02] VITALS: BP 127/70
[2016-08-25 03:25] VITALS: BP 148/90
[2016-08-25 05:30] LABS: INR 1.8 (0.8-1.1); PROTHROMBIN TIME PATIENT 19.6 SEC (11.7-14.0)
[2016-08-25 07:00] VITALS: BP 115/73
[2016-08-25] MEDS: IPRATRPIUM/ALBUTEROL 0.5/2.5MG 3 ML NEBU. NEB SCH ×2 (07:11→11:13)
--- NOTE | 2016-08-25 08:05 | PDOC ---
GENERAL General: vss and afebrile. awake and alert. INR 1.8. chest clear and heart slightly tachycardic. left leg stable. to snu today. see dc orders. Problems: VITAL SIGNS Vital Signs: Vital Signs Date Time Temp Pulse Resp B/P Pulse Ox O2 Delivery O2 Flow Rate FiO2 08/25/16 07:12 95 Nasal Cannula 3.0 08/25/16 03:25 98.1 114 20 148/90 98.1 I & O I & O Intake and Output 08/25/16 07:00 Intake Total 680 ml Balance 680 ml Intake Oral 680 ml # Voids 5 ALLERGIES Allergies: Allergies Coded Allergies Type Severity Reaction Last Updated Verified amlodipine Adverse Reaction Intermediate Swelling 08/22/16 Yes MEDS Medications: Current Medications Medications (Trade) Dose Ordered Sig/Chrissie Start Time Stop Time Status Last Admin Dose Admin Acetaminophen/ Hydrocodone Bitart (Lortab 7.5/325) 2 tab PRN Q4HRS PRN 08/22/16 15:00 Albuterol/ Ipratropium (Duoneb) 3 ml RTQID 08/22/16 16:00 08/25/16 07:11 3 ML Bisacodyl (Dulcolax Supp) 10 mg 1X PRN PRN 08/23/16 16:00 08/24/16 15:59 DC Cefazolin Sodium (Ancef 1gm Ivpb For Omni) 50 ml @ 100 mls/hr 1X ONCE 08/22/16 11:15 08/22/16 11:44 DC 08/22/16 11:38 100 MLS/HR Cefazolin Sodium/ Sodium Chloride (Ancef/Iv Sodium Chloride 0.9% 50ml) 50 ml @ 100 mls/hr Q8H 08/22/16 18:00 08/23/16 02:29 DC 08/23/16 06:00 100 MLS/HR Desflurane (Suprane) 60 ml STK-MED ONCE 08/22/16 10:50 08/22/16 10:51 DC Dexamethasone Sodium Phosphate (Decadron) 20 mg STK-MED ONCE 08/22/16 10:50 08/22/16 10:51 DC Dextrose 12.5 gm 12.5 gm PRN Q15MIN PRN 08/22/16 15:00 Ephedrine Sulfate 50 mg STK-MED ONCE 08/22/16 12:08 08/22/16 12:09 DC Fentanyl Citrate (Fentanyl 2ml Vial) 25 mcg PRN Q1HR PRN 08/22/16 15:00 Fentanyl Citrate 25 mcg 25 mcg PRN Q15MIN PRN 08/21/16 19:45 08/22/16 19:44 DC 08/21/16 22:51 25 MCG Fentanyl Citrate 100 mcg 100 mcg STK-MED ONCE 08/22/16 10:51 08/22/16 10:52 DC Hydrochlorothiazide (Microzide) 12.5 mg DAILY 08/23/16 09:00 08/24/16 09:28 12.5 MG Hydromorphone HCl (Dilaudid) 0.5 mg PRN Q10MIN PRN 08/22/16 07:30 08/23/16 07:29 DC Lactated Ringer's (Iv Lactated Ringers) 1,000 ml @ 30 mls/hr Q24H 08/22/16 07:20 08/22/16 19:19 DC 08/22/16 11:00 30 MLS/HR Lidocaine HCl 100 mg STK-MED ONCE 08/22/16 10:50 08/22/16 10:51 DC Losartan Potassium (Cozaar) 100 mg DAILY 08/23/16 09:00 08/24/16 09:28 100 MG Magnesium Hydroxide (Milk Of Magnesia) 2,400 mg 1X PRN PRN 08/23/16 06:00 08/24/16 05:59 DC Morphine Sulfate 4 mg PRN Q2HR PRN 08/22/16 15:00 Morphine Sulfate 1 mg 1 mg PRN Q10MIN PRN 08/22/16 07:30 08/23/16 07:29 DC Morphine Sulfate 2 mg 2 mg PRN Q2HR PRN 08/22/16 01:15 08/23/16 01:14 DC 08/22/16 17:27 2 MG Non-Formulary Medication 1 each DAILY 08/23/16 09:00 UNV Ondansetron HCl (Zofran) 4 mg PRN Q4HRS PRN 08/22/16 15:00 Ondansetron HCl 4 mg 4 mg STK-MED ONCE 08/22/16 10:50 08/22/16 10:51 DC Oxycodone HCl (Roxicodone) 5 mg PRN Q3HRS PRN 08/22/16 15:00 08/24/16 16:20 5 MG Phenylephrine HCl 1 mg STK-MED ONCE 08/22/16 12:16 08/22/16 12:17 DC Polyethylene Glycol (miraLAX PACKET) 17 gm PRN DAILY PRN 08/22/16 15:00 Prochlorperazine Edisylate (Compazine) 5 mg PACU PRN PRN 08/22/16 07:30 08/23/16 07:29 DC Propofol (Diprivan) 20 ml @ As Directed STK-MED ONCE 08/22/16 10:50 08/22/16 10:51 DC Senna/Docusate Sodium (Senna Plus) 1 tab DAILY 08/23/16 09:00 08/24/16 09:28 1 TAB Sodium Chloride (Iv Sodium Chloride 0.9% 500ml Bag) 500 ml @ 500 mls/hr 1X ONCE 08/21/16 23:00 08/21/16 23:59 DC 08/21/16 22:45 500 MLS/HR Sodium Chloride (Iv Sodium Chloride 0.9% 1000ml Bag) 1,000 ml @ 100 mls/hr Q10H 08/22/16 01:11 08/23/16 01:10 DC 08/22/16 21:52 100 MLS/HR Warfarin Sodium (Coumadin Per Pharmacy) 1 each PRN DAILY PRN 08/23/16 15:00 08/24/16 10:39 1 EACH Warfarin Sodium (Coumadin) 2.5 mg 1X WARF ONCE 08/24/16 16:00 08/24/16 16:01 DC 08/24/16 16:20 2.5 MG LAB Lab: Laboratory Tests Test 08/25/16 04:40 Prothrombin Time 19.6SEC (11.7-14.0) Prothromb Time International Ratio 1.8 (0.8-1.1) JAMIN EVANS MD Aug 25, 2016 08:05
[2016-08-25] MEDS: SENNOSIDES/DOCUSATE 8.6/50MG TABLET. PO SCH (09:33)
[2016-08-25] MEDS: LOSARTAN POTASSIUM 50 MG TABLET. PO SCH (09:34)
[2016-08-25] MEDS: HYDROCHLOROTHIAZIDE 12.5 MG CAPSULE. PO SCH (09:34)
[2016-08-25] MEDS: HYDROCODONE/APAP 7.5/325MG TABLET. PO PRN ×2 (09:34→12:58)
[2016-08-25 11:00] VITALS: BP 108/55
[2016-08-25] MEDS ORDERED: POLY255P PO (11:42)
[2016-08-25] MEDS ORDERED: WARFARIN 2.5 MG TABLET. PO ONE (11:45)
--- NOTE | 2016-08-25 14:56 | PATHOLOGY ---
PATHOLOGY REPORT * * * * * * * * FINAL DIAGNOSIS: Femoral head and separate segments of bone, left hip hemiarthroplasty: - Focal fragmentation of bony trabeculae and recent intertrabecular hemorrhage consistent with fracture. COMMENT: There is no evidence of malignancy. (JPM:; d/t: 08/25/16) REPORT ELECTRONICALLY SIGNED BY: Constantin Beebe M.D. DATE/TIME: 08/25/2016 14:51 * * * * * * * * GROSS PATHOLOGY: Received in formalin labeled "Talisha Fischer, left hip bone and tissue," is a predominantly hollowed out femoral head measuring 4.4 x 4.4 x 3.0 cm in greatest dimensions and separately submitted additional segments of light hawthorne to red-hawthorne bone fragments measuring 6.3 x 5.8 x 1.5 cm in aggregate dimensions. The articular surface is pale hawthorne to light hawthorne and smooth in appearance. Sectioning reveals a light hawthorne marrow space. [employer] tissue from the fracture site is submitted in cassette A1, following decalcification. (CAA; 08/24/2016) INITIAL CPT CODE(S): A; 59924, 12320 Professional services performed [place] [address] Technical services performed by [facility] at [address] [place] [address], [facility] [address], [place] [address]. SPECIMEN(S) RECEIVED: A.Left hip bone and tissue CLINICAL HISTORY: Left hip fracture PATIENT: TALISHA FISCHER /AGE: 6 1945 (Age: 70) PATIENT #: [id number] ALT CASE #: SPECIMEN COLLECTION DATE: 08/22/2016 SPECIMEN RECEIVED DATE: 08/24/2016 [facility] - [address] [place] [address] - PHONE: [phone] * * * END OF REPORT * * *
--- NOTE | 2016-08-26 09:34 | DS ---
DATE OF DISCHARGE: 08/25/2016 PRIMARY DIAGNOSES: Fall with left hip intertrochanteric/subtrochanteric hip fracture with previous ____ fixation of femoral neck fracture. ADDITIONAL DIAGNOSES: Severe chronic obstructive pulmonary disease, postoperative anemia. She is complaining of encephalopathy. CHIEF COMPLAINT AND HISTORY OF PRESENT ILLNESS: This 70-year-old white female is well known to me from followup in the office. The patient was recently admitted after a fall with inter-articulation of the left femoral neck fracture, internal fixation. She refused during that stay, which was done, just within the last couple of weeks or so and stated she had this home and was able to care for her, and felt she could do good with home therapy; however, upon getting home was not doing well, had several falls, was not there all the time as she works and she had a fall on the day of admission and ____ admission with a intertrochanteric/subtrochanteric hip fracture on top of her recent femoral neck fracture. SUMMARY OF STAY: The patient was admitted. She was taken to surgery on the by Dr. Decker where she had left hip open reduction and internal fixation with cable plate fixation of the intertrochanteric/subtrochanteric hip fracture with hardware removal with 3 screws and a cemented left hip arthroplasty done. Postoperatively, she did well, had some confusion off and on and consistent with some ____ encephalopathic changes. She was anemic after the surgery, but did not require transfusion, was on Coumadin for anticoagulation with the discharge INR of 1.8 and was felt she could go to retirement at the time of discharge and this was accomplished. DISPOSITION: The patient is discharged to retirement on regular diet, activity ____, PT and OT to evaluate meds. We will follow with her meds that have been listed on the med rec and have been addressed. JAMIN EVNAS MD DR: JEEVAN/marni JOB#: [id number] / [id number]
== END 2016-08-25 13:30 | DRG 469 ==
LOC: ER 19:35 → ED HOLD 22:18 → 4 NORTH 08-22 01:20
PROVIDERS: ADMIT Family Medicine; ATTEND Family Medicine
PROC: 30233N1 Transfusion of Nonautologous Red Blood Cells into Peripheral Vein, Percutaneous Approach (ICD-10-PCS; 2016-08-21)
PROC: 0SRS0J9 Replacement of Left Hip Joint, Femoral Surface with Synthetic Substitute, Cemented, Open Approach (ICD-10-PCS; principal; 2016-08-22 10:00)
DX: S72.002A Fracture of unspecified part of neck of left femur, initial encounter for closed fracture (principal); N17.0 Acute kidney failure with tubular necrosis; I12.9 Hypertensive chronic kidney disease with stage 1 through stage 4 chronic kidney disease, or unspecified chronic kidney disease; J44.9 Chronic obstructive pulmonary disease, unspecified; N18.9 Chronic kidney disease, unspecified; F32.9 Major depressive disorder, single episode, unspecified; F41.9 Anxiety disorder, unspecified; G89.29 Other chronic pain; W19.XXXA Unspecified fall, initial encounter; Z87.891 Personal history of nicotine dependence; Z90.710 Acquired absence of both cervix and uterus; Z88.8 Allergy status to other drugs, medicaments and biological substances; Y93.89 Activity, other specified; Y92.098 Other place in other non-institutional residence as the place of occurrence of the external cause; Y99.8 Other external cause status
CPT/HCPCS: 36415; 36600; 70450; 70486; 71010; 72125; 73090; 73501; 73521; 74176; 80047; 80048; 80053; 81001; 82274; 82306; 82805; 83880; 84484; 85007; 85014; 85018; 85027; 85610; 85730; 86850; 86900; 86901; 86920; 87641; 88305; 88311; 93005; 94250; 94640; 94760; 96360; 96361; C1713; G0481; J0690; J1100; J2270; J2370; J2405; J2704; J3010; J7030; J7040; J7120; J7620; P9016; 97110; 97116; 97530; 97535; 99285-25

== ENCOUNTER 2016-08-28 18:12 | Inpatient (IN) | payer MEDICARE ==
[~2016-08-28] VITALS: Ht 160 cm; Wt 53.5 kg
[~2016-08-28 18:12] MED LIST changes: +POLY255P PO
[2016-08-28 19:30] VITALS: BP 77/47
--- NOTE | 2016-08-28 20:01 | PDOC ---
GENERAL General: see dictated H&P. Problems: ALLERGIES Allergies: Allergies Coded Allergies Type Severity Reaction Last Updated Verified amlodipine Adverse Reaction Intermediate Swelling 08/22/16 Yes JAMIN EVANS MD Aug 28, 2016 20:01
[2016-08-28 21:38] LABS: HEMOGLOBIN 5.8 g/dL (12.0-15.5)
[2016-08-28 21:39] LABS: HEMATOCRIT 18.1 % (36.0-47.0)
[2016-08-28] MEDS ORDERED: HYDROCODONE/APAP 5/325MG TABLET. PO PRN (22:15)
[2016-08-28] MEDS ORDERED: IPRA3AMP NEB (22:22)
[2016-08-28] MEDS ORDERED: SENN1TAB7 PO (22:22)
[2016-08-28] MEDS ORDERED: WARF2.5T PO (22:22)
[2016-08-28] MEDS ORDERED: ALPR0.5T PO (22:22)
[2016-08-28] MEDS ORDERED: ACETAMINOPHEN 325 MG TABLET. PO PRN (22:30)
[2016-08-28] MEDS ORDERED: ALPRAZOLAM 0.5 MG TABLET PO PRN (22:30)
[2016-08-28] MEDS ORDERED: ALBUTEROL SULFATE 2.5 MG/3 ML NEBU. NEB PRN (22:45)
[2016-08-28 22:54] VITALS: BP 86/63
[2016-08-28 23:30] VITALS: BP 86/63
--- NOTE | 2016-08-28 23:46 | HP ---
ADMIT DATE: 08/28/2016 CHIEF COMPLAINT AND HISTORY OF PRESENT ILLNESS: This 70-year-old white female is well known to me from followup in the office. The patient recently sent to custodial following a left hip fracture. She was anemic after surgery and followup CBCs have continued to drop with a hemoglobin of 6 on the day of admission with symptomatic anemia needing transfusion. She was tachycardic, more short of breath, relatively hypotensive and the patient was admitted for the same on the day of admission. PAST MEDICAL HISTORY: Remarkable for severe COPD, the recent hip fracture, anxiety, depression, chronic kidney disease, back pain, hypertension. PAST SURGICAL HISTORY: Remarkable for hysterectomy. MEDICATIONS: Brought with the patient, listed on the computer, have been addressed. ALLERGIES: SHE IS ALLERGIC TO AMLODIPINE. SOCIAL HISTORY: She is a reformed smoker, nondrinker, does not use drugs. , lives at home with her on a regular basis, who has some dementia. FAMILY HISTORY: Noncontributory. REVIEW OF SYSTEMS: As mentioned above. PHYSICAL EXAMINATION: GENERAL: She is a well-developed, well-nourished, pale white female who is short of breath even at rest. VITAL SIGNS: Remarkable for an elevated respiratory rate, tachycardic in the 120-130 range and relatively hypotensive with blood pressure in the 90/60 range. HEAD, EYES, EARS, NOSE AND THROAT: Remarkable for pallor of the conjunctivae. NECK: Supple without ____ thyromegaly. CHEST: Reveals decreased breath sounds. HEART: Tachycardic, regular, without S3, S4 or murmur. ABDOMEN: Soft, nontender, without hepatosplenomegaly or masses. EXTREMITIES: Without cyanosis, clubbing or edema. NEUROLOGIC: She is intact. IMPRESSION: Symptomatic anemia, likely related to hip fracture, although she is on anticoagulation following hip fracture on warfarin, but there has been no evidence of bleeding since she has been in custodial. PLAN: The patient has been admitted. She will be typed, crossed, transfused 2 units of packed red blood cells. CBC will be checked in the morning. If she does well with symptomatic resolution of her symptoms and no evidence of any bleeding, she could go back to custodial as soon as tomorrow. JAMIN A. APPL, MD DR: JEEVAN/marni JOB#: [id number] / [id number]
[2016-08-29] VITALS (10 sets, daily range): BP systolic 91–134; BP diastolic 50–76
[2016-08-29 06:01] LABS: BASO # 0.1 x10^3/uL (0.0-0.2); BASO % 0 % (0-3); EOS % 0 % (0-3); HEMATOCRIT 28.7 % (36.0-47.0); HEMOGLOBIN 9.7 g/dL (12.0-15.5); LYMPH # 1.4 x10^3/uL (1.0-4.8); LYMPH % 7 % (24-48); MEAN CORPUSCULAR HEMOGLOBIN 30 pg (25-35); MEAN CORPUSCULAR HGB CONC 34 g/dL (31-37); MEAN CORPUSCULAR VOLUME 87 fL (79-100); MONO % 13 % (0-9); NEUT % 80 % (31-73); PLATELET COUNT 316 x10^3/uL (140-400); RED BLOOD COUNT 3.29 x10^6/uL (3.50-5.40); RED CELL DISTRIBUTION WIDTH 15.4 % (11.5-14.5); WHITE BLOOD COUNT 20.8 x10^3/uL (4.0-11.0)
[2016-08-29] MEDS ORDERED: SENNOSIDES/DOCUSATE 8.6/50MG TABLET. PO SCH (09:00)
[2016-08-29] MEDS ORDERED: NON FORMULARY ITEM (Ipratropium/Albuterol Sulfate (Combivent Respimat Inhal) 2 INH) IH SCH (09:00)
[2016-08-29] MEDS: IPRATRPIUM/ALBUTEROL 0.5/2.5MG 3 ML NEBU. NEB SCH ×3 (09:03→16:12)
--- NOTE | 2016-08-29 13:03 | DISCH ---
DISCHARGE FINAL DIAGNOSIS Problems Medical Problems: (1) Anemia Status: Acute CONDITION ON DISCHARGE: Stable SNF STAY <30 DAYS: Yes POST DISCHARGE ORDERS ACTIVITY ORDERS: Activity as tolerated WEIGHT BEARING STATUS: As tolerated BATHING ORDERS: Shower-keep dressing dry, No Tub Bath until see WOUND/INCISION CARE: Ice to area for comfort, Do not change dressing CHECKS AFTER DISCHARGE CHECKS AFTER DISCHARGE: Check blood press - daily FOLLOW-UP PHYSICIAN FOLLOW-UP: as needed TREATMENT/EQUIPMENT ORDERS ADAPTIVE EQUIPMENT NEEDED: Front wheeled walker RESPIRATORY EQUIPMENT NEEDED: Oxygen RONY JONES MD Aug 29, 2016 13:03
--- NOTE | 2016-08-29 13:05 | PDOC ---
Provider Note Provider Note [id number] RONY JONES MD Aug 29, 2016 13:05
[2016-08-29 13:11] LABS: ANISOCYTOSIS SLIGHT; PLT ESTIMATE ADEQUATE (ADEQUATE)
--- NOTE | 2016-08-29 16:09 | DS ---
DATE OF DISCHARGE: 08/29/2016 HOSPITAL SUMMARY: A 70-year-old white female with recent hip fracture and repair was admitted by Dr. Ochoa for transfusions for postoperative anemia. Hemoglobin was 6.0 on admission and after 2 units of packed red blood cells, hemoglobin was up to 9.7 and she feels better. Rest of the laboratory studies was unremarkable and she is able to be returned back to the [facility] which [facility]. FINAL DIAGNOSES: Postoperative anemia. OPERATIONS, PROCEDURES, COMPLICATIONS, AND CONSULTATIONS: None. DISPOSITION: Continue home meds same including oral iron. ACTIVITY: As tolerated. Dr. Ochoa and an orthopedist for follow up on a p.r.n. basis. RONY JONES MD DR: RUBEN/nts JOB#: [id number] / [id number]
== END 2016-08-29 17:45 | DRG 812 ==
LOC: 4 NORTH 19:24
PROVIDERS: ADMIT Family Medicine; ATTEND Family Medicine
PROC: 30233N1 Transfusion of Nonautologous Red Blood Cells into Peripheral Vein, Percutaneous Approach (ICD-10-PCS; principal; 2016-08-28)
DX: D64.9 Anemia, unspecified (principal); F03.90 Unspecified dementia, unspecified severity, without behavioral disturbance, psychotic disturbance, mood disturbance, and anxiety; I12.9 Hypertensive chronic kidney disease with stage 1 through stage 4 chronic kidney disease, or unspecified chronic kidney disease; N18.9 Chronic kidney disease, unspecified; J44.9 Chronic obstructive pulmonary disease, unspecified; F32.9 Major depressive disorder, single episode, unspecified; F41.9 Anxiety disorder, unspecified; M54.9 Dorsalgia, unspecified; Z87.891 Personal history of nicotine dependence; Z79.01 Long term (current) use of anticoagulants; Z88.8 Allergy status to other drugs, medicaments and biological substances
CPT/HCPCS: 36415; 85007; 85014; 85018; 85027; 86850; 86900; 86901; 86920; 87641; 94250; 94640; 94760; J7620; P9016

== ENCOUNTER 2016-09-03 13:22 | Inpatient (IN) | payer MEDICARE ==
[~2016-09-03] VITALS: Ht 162.6 cm; Wt 50.8 kg
[2016-09-03] VITALS (10 sets, daily range): BP systolic 65–91; BP diastolic 42–60
[~2016-09-03 13:22] MED LIST changes: +ALPR0.5T PO; +IPRA3AMP NEB; +SENN1TAB7 PO; +WARF2.5T PO
[2016-09-03] MEDS ORDERED: IV NORMAL SALINE 1000ML BAG 1,000 ML IV ONE ×3 (14:00→19:00)
--- NOTE | 2016-09-03 14:01 | PHYS DOC ---
Past Medical History Past Medical History: Anxiety, COPD, Depression, Hypertension, Renal Disease Additional Past Medical Histor: back pain Past Surgical History: Hysterectomy Additional Past Surgical Histo: UNKNOWN Alcohol Use: None Drug Use: None Adult General Chief Complaint Chief Complaint: HYPOTENSION HPI HPI Patient is a 70 year old female who presents with hypotension. Patient arrives from the retirement across the street with low blood pressure. Patient is several days postop hip repair. Patient complains of right hip pain, chest pressure, shortness of breath and abdominal pain. Patient is known to be anemic and her last hemoglobin was 7.5. Review of Systems Review of Systems Constitutional: Denies fever or chills Eyes: Denies change in visual acuity, redness, or eye pain HENT: Denies nasal congestion or sore throat Respiratory: Denies cough, positive shortness of breath Cardiovascular: Positive chest pain, no palpitations GI: Denies , nausea, vomiting, bloody stools. Positive abdominal pain and diarrhea : Denies dysuria or hematuria Musculoskeletal: Denies new back pain or joint pain Integument: Bruising left periorbital region. Left hip surgical site healing well Current Medications Current Medications Current Medications Medications (Trade) Dose Ordered Sig/Chrissie Start Time Stop Time Status Last Admin Dose Admin Sodium Chloride (Iv Sodium Chloride 0.9% 1000ml Bag) 1,000 ml @ 0 mls/hr 1X ONCE 09/03/16 15:45 09/03/16 15:46 DC 09/03/16 16:13 999 MLS/HR Allergies Allergies Physical Exam Physical Exam Constitutional: Well developed, cachectic, mild acute distress, non-toxic appearance. HENT: Normocephalic, atraumatic, oropharynx moist, no oral exudates, nose normal. Eyes: PERRLA, EOMI, conjunctiva normal, no discharge. Neck: No tenderness, supple, no stridor. Cardiovascular:Heart tachy rate regular rhythm, no murmur Lungs & Thorax: Bilateral breath sounds clear to auscultation Abdomen: Bowel sounds normal, soft, minimal diffuse tenderness, no masses, no pulsatile masses. Skin: Warm, dry, no erythema, no rash. Extremities: No tenderness, no cyanosis, no clubbing, ROM intact, no edema. [] Neurologic: Alert and oriented X 3, normal motor function, normal sensory function, no focal deficits noted. [] Psychologic: Affect normal, judgement normal, mood normal. [] Current Patient Data Vital Signs Vital Signs Date Time Temp Pulse Resp B/P Pulse Ox O2 Delivery O2 Flow Rate FiO2 09/03/16 15:30 125 22 70/50 97 Nasal Cannula 09/03/16 15:00 4 09/03/16 13:39 98.6 98.6 Lab Values Laboratory Tests Test 09/03/16 13:50 09/03/16 14:00 09/03/16 15:00 White Blood Count 18.3x10^3/uL (4.0-11.0) H Red Blood Count 2.41x10^6/uL (3.50-5.40) L Hemoglobin 6.9g/dL (12.0-15.5) *L Hematocrit 22.3% (36.0-47.0) L Mean Corpuscular Volume 92fL (79-100) # Mean Corpuscular Hemoglobin 29pg (25-35) Mean Corpuscular Hemoglobin Concent 31g/dL (31-37) Red Cell Distribution Width 15.6% (11.5-14.5) H Platelet Count 456x10^3/uL (140-400) H Neutrophils (%) (Auto) 87% (31-73) H Lymphocytes (%) (Auto) 5% (24-48) L Monocytes (%) (Auto) 8% (0-9) Eosinophils (%) (Auto) 1% (0-3) Basophils (%) (Auto) 0% (0-3) Neutrophils # (Auto) 15.9x10^3uL (1.8-7.7) H Lymphocytes # (Auto) 0.9x10^3/uL (1.0-4.8) L Monocytes # (Auto) 1.4x10^3/uL (0.0-1.1) H Eosinophils # (Auto) 0.1x10^3/uL (0.0-0.7) Basophils # (Auto) 0.0x10^3/uL (0.0-0.2) Segmented Neutrophils % 88% (35-66) H Band Neutrophils % 3% (0-9) Lymphocytes % 5% (24-48) L Monocytes % 2% (0-10) Eosinophils % 1% (0-5) Myelocytes % 1% (0-0) H Platelet Estimate Increased (ADEQUATE) Hypochromasia Slight Anisocytosis Slight Macrocytosis Slight Prothrombin Time 13.1SEC (11.7-14.0) Prothrombin Time INR 1.1 (0.8-1.1) Sodium Level 142mmol/L (136-145) Potassium Level 4.3mmol/L (3.5-5.1) Chloride Level 104mmol/L (98-107) Carbon Dioxide Level 29mmol/L (21-32) Anion Gap 9 (6-14) Blood Urea Nitrogen 47mg/dL (7-20) H Creatinine 1.1mg/dL (0.6-1.0) H Estimated GFR (Cockcroft-Gault) 49.4 BUN/Creatinine Ratio 43 (6-20) H Glucose Level 141mg/dL (70-99) H Lactic Acid Level 2.6mmol/L (0.4-2.0) H Calcium Level 7.9mg/dL (8.5-10.1) L Total Bilirubin 0.3mg/dL (0.2-1.0) Aspartate Amino Transferase (AST) 28U/L (15-37) Alanine Aminotransferase (ALT) 29U/L (14-59) Alkaline Phosphatase 123U/L (46-116) H Troponin I Quantitative < 0.017ng/mL (0.000-0.055) Total Protein 4.9g/dL (6.4-8.2) L Albumin 1.7g/dL (3.4-5.0) L Albumin/Globulin Ratio 0.5 (1.0-1.7) L Lipase 265U/L (73-393) Stool Occult Blood Negative (NEG) Urine Collection Type U cath Urine Color Yellow Urine Clarity Clear Urine pH 5.5 Urine Specific [place] 1.015 Urine Protein Negativemg/dL (NEG-TRACE) Urine Glucose (UA) Negativemg/dL (NEG) Urine Ketones (Stick) Negativemg/dL (NEG) Urine Blood Negative (NEG) Urine Nitrite Negative (NEG) Urine Bilirubin Negative (NEG) Urine Urobilinogen Dipstick 0.2mg/dL (0.2 mg/dL) Urine Leukocyte Esterase Negative (NEG) Urine RBC 0/HPF (0-2) Urine WBC 0/HPF (0-4) Urine Renal Epithelial Cells Few/LPF Urine Bacteria 0/HPF (0-FEW) Urine Hyaline Casts Few/HPF Urine Mucus Mod/LPF Laboratory Tests 09/03/16 13:50 Laboratory Tests 09/03/16 13:50 EKG EKG [] Radiology/Procedures Radiology/Procedures [] Course & Med Decision Making Course & Med Decision Making Pertinent Labs and Imaging studies reviewed. (See chart for details) Discussed patient with Dr. Larios and he agrees to admit patient. Dragon Disclaimer Dragon Disclaimer This electronic medical record was generated, in whole or in part, using a voice recognition dictation system. Departure Departure Impression: Primary Impression: Hypotension Additional Impression: Anemia Disposition: ADMITTED INPATIENT Admitting Physician: Jamin Evans Condition: GUARDED Referrals: JAMIN EVANS MD (PCP) Problem Qualifiers Primary Impression: Hypotension Hypotension type: unspecified hypotension type Qualified Code: I95.9 - Hypotension, unspecified Additional Impression: Anemia Anemia type: unspecified type Qualified Code: D64.9 - Anemia, unspecified CHALO LAINEZ MD Sep 03, 2016 14:01
[2016-09-03 14:06] LABS: BASO % 0 % (0-3); EOS % 1 % (0-3); HEMATOCRIT 22.3 % (36.0-47.0); LYMPH # 0.9 x10^3/uL (1.0-4.8); LYMPH % 5 % (24-48); MEAN CORPUSCULAR HEMOGLOBIN 29 pg (25-35); MEAN CORPUSCULAR HGB CONC 31 g/dL (31-37); MEAN CORPUSCULAR VOLUME 92 fL (79-100); MONO % 8 % (0-9); NEUT % 87 % (31-73); PLATELET COUNT 456 x10^3/uL (140-400); RED BLOOD COUNT 2.41 x10^6/uL (3.50-5.40); RED CELL DISTRIBUTION WIDTH 15.6 % (11.5-14.5); WHITE BLOOD COUNT 18.3 x10^3/uL (4.0-11.0)
[2016-09-03 14:14] LABS: HEMOGLOBIN 6.9 g/dL (12.0-15.5)
[2016-09-03 14:15] LABS: NEG OBC FOB NEG; POS OBC FOB POS
[2016-09-03 14:20] LABS: CALCIUM 7.9 mg/dL (8.5-10.1); CREATININE 1.1 mg/dL (0.6-1.0); GFR 49.4; POTASSIUM 4.3 mmol/L (3.5-5.1)
[2016-09-03 14:26] LABS: ALBUMIN 1.7 g/dL (3.4-5.0); ALBUMIN/GLOBULIN RATIO 0.5 (1.0-1.7); TOTAL BILIRUBIN 0.3 mg/dL (0.2-1.0); TOTAL PROTEIN 4.9 g/dL (6.4-8.2)
--- NOTE | 2016-09-03 14:31 | RAD ---
AP chest, 09/03/2016: History: Hypotension, shortness of breath Comparison is made to a study from 08/21/2016. The heart size is normal. There is calcific plaquing of the aorta. Attenuation of the upper lobe pulmonary vessels suggests emphysema. There are scattered parenchymal scars. No acute infiltrate is seen. There is no evidence of pleural fluid. IMPRESSION: 1. Emphysema. 2. Aortic atherosclerosis. 3. No acute abnormality is detected.
--- NOTE | 2016-09-03 14:43 | EKG ---
[facility] [address] [place] [address] Test Date: 2016-09-03 Test Time: 13:34:52 Pat Name: EILEEN WALLACE Department: Room: Gender: F Back Office Medical Assistant: : 1945 Requested By: CHALO LAINEZ Order Number: [id number] Reading MD: La Griffin Measurements Intervals [place] Rate: 122 P: 90 ID: [id number] QRS: -59 QRSD: 74 T: 84 QT: 290 QTc: 414 Interpretive Statements SINUS TACHYCARDIA LEFT ANTERIOR FASCICULAR BLOCK T ABNORMALITY IN HIGH LATERAL LEADS Electronically Signed On 09-06-2016 18:40:25 CDT by La Griffin
[2016-09-03 15:08] LABS: % EOS 1 % (0-5); ANISOCYTOSIS SLIGHT; PLT ESTIMATE INCREASED (ADEQUATE)
[2016-09-03 15:09] LABS: HYPOCHROMIA SLIGHT
[2016-09-03 15:14] LABS: BILIRUBIN,URINE NEGATIVE (NEG); GLUCOSE,URINE NEGATIVE (NEG); NITRITE,URINE NEGATIVE (NEG); PH,URINE 5.5; PROTEIN,URINE NEGATIVE (NEG-TRACE); UROBILINOGEN,URINE 0.2 mg/dL (0.2 mg/dL)
[2016-09-03 15:28] LABS: BACTERIA,URINE 0 /HPF (0-FEW); RBC,URINE 0 /HPF (0-2); WBC,URINE 0 /HPF (0-4)
[2016-09-03 16:09] LABS: INR 1.1 (0.8-1.1); PROTHROMBIN TIME PATIENT 13.1 SEC (11.7-14.0)
[2016-09-03 17:10] LABS: NEG OBC FOB NEG; POS OBC FOB POS
--- NOTE | 2016-09-03 17:33 | ACF ---
Admission Forms Criteria HEMODYNAMIC INSTABILITY Clinical Indications for Inpatient Care (Place 'X' for any and all applicable criteria): Ongoing inpatient care may be indicated for hemodynamic instability as indicated by ANY ONE of the following (1)(2)(3)(4)(10): [ ]I) Marked hemodynamic change from baseline (eg, SBP 20 mm Hg below patient's usual pressure) [X]II) New SBP less than 90 mm Hg or mean arterial pressure less than 70 mm Hg [B](15) [ ]IIII) Symptomatic heart rate greater than 100 or less than 60 beats per minute unresponsive to treatment (eg, analgesia, fluids) [ ]IV) Inadequate perfusion as indicated by ANY ONE of the following: [ ]a) Lactic acidosis, with lactic acid greater than 18 mg/dL (2 mmol/ L) or base excess less than -5 mEq/L [ ]b) New abnormal capillary refill (longer than 3 seconds) [ ]c) New altered mental status [ ]d) Reduced urine output [ ]V) Orthostatic vital sign changes [B] that are symptomatic and unresponsive to treatment (eg, fluids) [ ]) IV inotropic or vasopressor medication required(26) Extended stay beyond goal length of stay for primary condition may be needed until ALL of the following are present(1)(2)(3): [ ]a) Heart rate > 60 and < 100 beats per minute or patient is clinically stable at current rate (eg, baseline) [ ]b) SBP >100 mm Hg and <160 mm Hg or patient is clinically stable at current pressure (eg, baseline) [ ]c) DBP greater than 50 mm Hg and less than 100 mm Hg or patient is clinically stable at current pressure (eg, baseline) [ ]d) Urine output greater than 0.5 mL/kg per hour [ ]e) Room air oxygen saturation 90% or greater or at baseline [ ]f) Orthostatic vital sign changes absent, asymptomatic, at baseline, or manageable at lower level of care [ ]g) Medical comorbidities manageable at lower level of care The original [employer] content created by [employer] has been revised. The portions of the content which have been revised are identified through the use of italic text or in bold, and [facility] [employer] has neither reviewed nor approved the modified material. All other unmodified content is copyright [employer]. Please see references footnoted in the original [facility] edition 2016 Admission Criteria Met?: Yes MIRANDA SQUIRES Sep 03, 2016 17:33
[2016-09-03 19:10] LABS: NEG OBC FOB NEG; POS OBC FOB POS
[2016-09-03] MEDS ORDERED: VANCOMYCIN 1 GM in IV NORMAL SALINE 250ML 250 ML IV ONE (20:00)
[2016-09-03] MEDS: PIPERACILLIN/TAZOBACTAM 3.375 GM in IV NORMAL SALINE 50ML 50 ML IV SCH (20:00)
[2016-09-03] MEDS: IV NORMAL SALINE 1000ML BAG 1,000 ML IV SCH (20:08)
[2016-09-04] VITALS (25 sets, daily range): BP systolic 61–148; BP diastolic 37–98
[2016-09-04] MEDS: PIPERACILLIN/TAZOBACTAM 3.375 GM in IV NORMAL SALINE 50ML 50 ML IV SCH ×4 (00:56→18:42)
[2016-09-04 03:14] LABS: HEMATOCRIT 25.5 % (36.0-47.0); HEMOGLOBIN 8.2 g/dL (12.0-15.5); RED BLOOD COUNT 2.76 x10^6/uL (3.50-5.40); RED CELL DISTRIBUTION WIDTH 15.4 % (11.5-14.5); WHITE BLOOD COUNT 17.3 x10^3/uL (4.0-11.0)
[2016-09-04] MEDS: NOREPINEPHRINE VIAL 8 MG in IV NORMAL SALINE 250ML 250 ML IV PRN (03:33)
[2016-09-04] MEDS ORDERED: PANTOPRAZOLE IV PUSH 40 MG VIAL. IVP ONE (04:00)
[2016-09-04] MEDS: IV NORMAL SALINE 1000ML BAG 1,000 ML IV SCH ×2 (06:07→14:09)
[2016-09-04 06:15] LABS: BASO # 0.1 x10^3/uL (0.0-0.2); BASO % 0 % (0-3); EOS % 0 % (0-3); HEMATOCRIT 25.5 % (36.0-47.0); HEMOGLOBIN 8.2 g/dL (12.0-15.5); LYMPH # 1.3 x10^3/uL (1.0-4.8); LYMPH % 8 % (24-48); MEAN CORPUSCULAR HEMOGLOBIN 30 pg (25-35); MEAN CORPUSCULAR HGB CONC 32 g/dL (31-37); MEAN CORPUSCULAR VOLUME 92 fL (79-100); MONO % 6 % (0-9); NEUT % 86 % (31-73); PLATELET COUNT 285 x10^3/uL (140-400); RED BLOOD COUNT 2.76 x10^6/uL (3.50-5.40); RED CELL DISTRIBUTION WIDTH 15.6 % (11.5-14.5); WHITE BLOOD COUNT 17.1 x10^3/uL (4.0-11.0)
[2016-09-04 06:23] LABS: CREATININE 0.7 mg/dL (0.6-1.0); GFR 83.2; POTASSIUM 4.7 mmol/L (3.5-5.1)
[2016-09-04] MEDS ORDERED: PANTOPRAZOLE IV PUSH 40 MG VIAL. IVP SCH (07:30)
--- NOTE | 2016-09-04 08:12 | RAD ---
Left lower extremity venous ultrasound, 09/03/2016 : History: Left leg swelling, recent surgery Duplex evaluation including grayscale, color flow and spectral Doppler analysis was performed. The femoral and popliteal veins show no filling defects to suggest DVT. The visualized calf veins are unremarkable. IMPRESSION: There is no sonographic evidence of deep vein thrombosis in the left lower extremity
[2016-09-04] MEDS ORDERED: LIDOCAINE 1% / SOD BICARB 8.4% 20 ML VIAL. IJ ONE ×3 (08:40→13:12)
[2016-09-04] MEDS ORDERED: PANTOPRAZOLE SODIUM IV 80 MG in IV NORMAL SALINE 100ML 100 ML IV SCH (08:45)
[2016-09-04] MEDS: PANTOPRAZOLE SODIUM IV 80 MG in IV NORMAL SALINE 100ML 100 ML IV SCH ×2 (08:45→22:17)
--- NOTE | 2016-09-04 08:46 | PDOC ---
Infectious Disease Note Vital Sign Vital Signs Vital Signs Date Time Temp Pulse Resp B/P Pulse Ox O2 Delivery O2 Flow Rate FiO2 09/04/16 06:00 133 20 102/94 100 Nasal Cannula 3.0 09/04/16 04:00 99.8 99.8 Labs Lab Laboratory Tests Test 09/03/16 13:50 09/03/16 14:00 09/03/16 15:00 09/03/16 16:55 White Blood Count 18.3x10^3/uL (4.0-11.0) Red Blood Count 2.41x10^6/uL (3.50-5.40) Hemoglobin 6.9g/dL (12.0-15.5) Hematocrit 22.3% (36.0-47.0) Mean Corpuscular Volume 92fL (79-100) Mean Corpuscular Hemoglobin 29pg (25-35) Mean Corpuscular Hemoglobin Concent 31g/dL (31-37) Red Cell Distribution Width 15.6% (11.5-14.5) Platelet Count 456x10^3/uL (140-400) Neutrophils (%) (Auto) 87% (31-73) Lymphocytes (%) (Auto) 5% (24-48) Monocytes (%) (Auto) 8% (0-9) Eosinophils (%) (Auto) 1% (0-3) Basophils (%) (Auto) 0% (0-3) Neutrophils # (Auto) 15.9x10^3uL (1.8-7.7) Lymphocytes # (Auto) 0.9x10^3/uL (1.0-4.8) Monocytes # (Auto) 1.4x10^3/uL (0.0-1.1) Eosinophils # (Auto) 0.1x10^3/uL (0.0-0.7) Basophils # (Auto) 0.0x10^3/uL (0.0-0.2) Segmented Neutrophils % 88% (35-66) Band Neutrophils % 3% (0-9) Lymphocytes % 5% (24-48) Monocytes % 2% (0-10) Eosinophils % 1% (0-5) Myelocytes % 1% (0-0) Platelet Estimate Increased (ADEQUATE) Hypochromasia Slight Anisocytosis Slight Macrocytosis Slight Prothrombin Time 13.1SEC (11.7-14.0) Prothromb Time International Ratio 1.1 (0.8-1.1) Sodium Level 142mmol/L (136-145) Potassium Level 4.3mmol/L (3.5-5.1) Chloride Level 104mmol/L (98-107) Carbon Dioxide Level 29mmol/L (21-32) Anion Gap 9 (6-14) Blood Urea Nitrogen 47mg/dL (7-20) Creatinine 1.1mg/dL (0.6-1.0) Estimated GFR (Cockcroft-Gault) 49.4 BUN/Creatinine Ratio 43 (6-20) Glucose Level 141mg/dL (70-99) Lactic Acid Level 2.6mmol/L (0.4-2.0) Calcium Level 7.9mg/dL (8.5-10.1) Total Bilirubin 0.3mg/dL (0.2-1.0) Aspartate Amino Transf (AST/SGOT) 28U/L (15-37) Alanine Aminotransferase (ALT/SGPT) 29U/L (14-59) Alkaline Phosphatase 123U/L (46-116) Troponin I Quantitative < 0.017ng/mL (0.000-0.055) Total Protein 4.9g/dL (6.4-8.2) Albumin 1.7g/dL (3.4-5.0) Albumin/Globulin Ratio 0.5 (1.0-1.7) Lipase 265U/L (73-393) Stool Occult Blood Negative (NEG) Positive (NEG) Urine Collection Type U cath Urine Color Yellow Urine Clarity Clear Urine pH 5.5 Urine Specific [place] 1.015 Urine Protein Negativemg/dL (NEG-TRACE) Urine Glucose (UA) Negativemg/dL (NEG) Urine Ketones (Stick) Negativemg/dL (NEG) Urine Blood Negative (NEG) Urine Nitrite Negative (NEG) Urine Bilirubin Negative (NEG) Urine Urobilinogen Dipstick 0.2mg/dL (0.2 mg/dL) Urine Leukocyte Esterase Negative (NEG) Urine RBC 0/HPF (0-2) Urine WBC 0/HPF (0-4) Urine Renal Epithelial Cells Few/LPF Urine Bacteria 0/HPF (0-FEW) Urine Hyaline Casts Few/HPF Urine Mucus Mod/LPF Test 09/03/16 18:45 09/04/16 01:30 09/04/16 05:00 Stool Occult Blood Positive (NEG) White Blood Count 17.3x10^3/uL (4.0-11.0) 17.1x10^3/uL (4.0-11.0) Red Blood Count 2.76x10^6/uL (3.50-5.40) 2.76x10^6/uL (3.50-5.40) Hemoglobin 8.2g/dL (12.0-15.5) 8.2g/dL (12.0-15.5) Hematocrit 25.5% (36.0-47.0) 25.5% (36.0-47.0) Mean Corpuscular Volume 92fL (79-100) 92fL (79-100) Mean Corpuscular Hemoglobin 30pg (25-35) 30pg (25-35) Mean Corpuscular Hemoglobin Concent 32g/dL (31-37) 32g/dL (31-37) Red Cell Distribution Width 15.4% (11.5-14.5) 15.6% (11.5-14.5) Platelet Count 284x10^3/uL (140-400) 285x10^3/uL (140-400) Neutrophils (%) (Auto) 86% (31-73) Lymphocytes (%) (Auto) 8% (24-48) Monocytes (%) (Auto) 6% (0-9) Eosinophils (%) (Auto) 0% (0-3) Basophils (%) (Auto) 0% (0-3) Neutrophils # (Auto) 14.6x10^3uL (1.8-7.7) Lymphocytes # (Auto) 1.3x10^3/uL (1.0-4.8) Monocytes # (Auto) 1.0x10^3/uL (0.0-1.1) Eosinophils # (Auto) 0.0x10^3/uL (0.0-0.7) Basophils # (Auto) 0.1x10^3/uL (0.0-0.2) Sodium Level 147mmol/L (136-145) Potassium Level 4.7mmol/L (3.5-5.1) Chloride Level 115mmol/L (98-107) Carbon Dioxide Level 25mmol/L (21-32) Anion Gap 7 (6-14) Blood Urea Nitrogen 55mg/dL (7-20) Creatinine 0.7mg/dL (0.6-1.0) Estimated GFR (Cockcroft-Gault) 83.2 Glucose Level 111mg/dL (70-99) Calcium Level 7.0mg/dL (8.5-10.1) Objective Assessment GI bleed Anemia Lactic acidosis likely sec to GI bleed and hypoperfusion, infection possible, less likely Minor drainage at Left hip surgery site Respiratory insufficiency Encephalopathy Plan Plan of Care cont zosyn for now supportive care EGD soon LETITIA HUSTON MD Sep 04, 2016 08:46
--- NOTE | 2016-09-04 08:57 | PDOC2 ---
GI CONSULT Reason For Consult: GI Bleed HPI: HPI: 70 y/o [place] w/ hypotension. Found to be anemic w/ Hgb 6.9, now 8.2 s/p transfusion 2 units pRBCs. Currently in ICU, tachycardic, hypotensive, having just passed a large melanotic stool. IV access was lost; staff working on this. She's not a good historian; she's not sure when bleeding started or how long she's been feeling badly. PMH as below, significant for recent hip ORIF, chronic resp failure/COPD on O2, anemia w/ previous transfusions. Home meds indicate she was taking Warfarin although I'm not sure why; she denies A Fib or h/o PE/DVT. Believes h/o ulcers and also recalls previous EGD and colonoscopy years ago. Does have some epigastric pain. No n/v, reflux. Not sure about NSAIDs. PMH: PMH: COPD on O2, HTN, back pain, ?PUD, anxiety, hysterectomy, cataract extraction, tonsillectomy, OA, ORIF left hip FH: Family History: No pertinent hx Social History: Smoke: Quit ALCOHOL: none Drugs: None ROS: Difficult historian. GEN: Denies fevers, chills, sweats HEENT: Denies blurred vision, sore throat CV: +heart racing RESP: +SOA GI: Per HPI : Denies hematuria, dysuria ENDO: Denies weight changes NEURO: Denies confusion, dizziness MSK: +weakness SKIN: Denies jaundice, pruritus VItals: Vitals: Vital Signs Date Time Temp Pulse Resp B/P Pulse Ox O2 Delivery O2 Flow Rate FiO2 09/04/16 06:00 133 20 102/94 100 Nasal Cannula 3.0 09/04/16 04:00 99.8 99.8 Labs: Labs: Laboratory Tests Test 09/03/16 13:50 09/03/16 14:00 09/03/16 15:00 09/03/16 16:55 White Blood Count 18.3x10^3/uL (4.0-11.0) Red Blood Count 2.41x10^6/uL (3.50-5.40) Hemoglobin 6.9g/dL (12.0-15.5) Hematocrit 22.3% (36.0-47.0) Mean Corpuscular Volume 92fL (79-100) Mean Corpuscular Hemoglobin 29pg (25-35) Mean Corpuscular Hemoglobin Concent 31g/dL (31-37) Red Cell Distribution Width 15.6% (11.5-14.5) Platelet Count 456x10^3/uL (140-400) Neutrophils (%) (Auto) 87% (31-73) Lymphocytes (%) (Auto) 5% (24-48) Monocytes (%) (Auto) 8% (0-9) Eosinophils (%) (Auto) 1% (0-3) Basophils (%) (Auto) 0% (0-3) Neutrophils # (Auto) 15.9x10^3uL (1.8-7.7) Lymphocytes # (Auto) 0.9x10^3/uL (1.0-4.8) Monocytes # (Auto) 1.4x10^3/uL (0.0-1.1) Eosinophils # (Auto) 0.1x10^3/uL (0.0-0.7) Basophils # (Auto) 0.0x10^3/uL (0.0-0.2) Segmented Neutrophils % 88% (35-66) Band Neutrophils % 3% (0-9) Lymphocytes % 5% (24-48) Monocytes % 2% (0-10) Eosinophils % 1% (0-5) Myelocytes % 1% (0-0) Platelet Estimate Increased (ADEQUATE) Hypochromasia Slight Anisocytosis Slight Macrocytosis Slight Prothrombin Time 13.1SEC (11.7-14.0) Prothromb Time International Ratio 1.1 (0.8-1.1) Sodium Level 142mmol/L (136-145) Potassium Level 4.3mmol/L (3.5-5.1) Chloride Level 104mmol/L (98-107) Carbon Dioxide Level 29mmol/L (21-32) Anion Gap 9 (6-14) Blood Urea Nitrogen 47mg/dL (7-20) Creatinine 1.1mg/dL (0.6-1.0) Estimated GFR (Cockcroft-Gault) 49.4 BUN/Creatinine Ratio 43 (6-20) Glucose Level 141mg/dL (70-99) Lactic Acid Level 2.6mmol/L (0.4-2.0) Calcium Level 7.9mg/dL (8.5-10.1) Total Bilirubin 0.3mg/dL (0.2-1.0) Aspartate Amino Transf (AST/SGOT) 28U/L (15-37) Alanine Aminotransferase (ALT/SGPT) 29U/L (14-59) Alkaline Phosphatase 123U/L (46-116) Troponin I Quantitative < 0.017ng/mL (0.000-0.055) Total Protein 4.9g/dL (6.4-8.2) Albumin 1.7g/dL (3.4-5.0) Albumin/Globulin Ratio 0.5 (1.0-1.7) Lipase 265U/L (73-393) Stool Occult Blood Negative (NEG) Positive (NEG) Urine Collection Type U cath Urine Color Yellow Urine Clarity Clear Urine pH 5.5 Urine Specific [place] 1.015 Urine Protein Negativemg/dL (NEG-TRACE) Urine Glucose (UA) Negativemg/dL (NEG) Urine Ketones (Stick) Negativemg/dL (NEG) Urine Blood Negative (NEG) Urine Nitrite Negative (NEG) Urine Bilirubin Negative (NEG) Urine Urobilinogen Dipstick 0.2mg/dL (0.2 mg/dL) Urine Leukocyte Esterase Negative (NEG) Urine RBC 0/HPF (0-2) Urine WBC 0/HPF (0-4) Urine Renal Epithelial Cells Few/LPF Urine Bacteria 0/HPF (0-FEW) Urine Hyaline Casts Few/HPF Urine Mucus Mod/LPF Test 09/03/16 18:45 09/04/16 01:30 09/04/16 05:00 Stool Occult Blood Positive (NEG) White Blood Count 17.3x10^3/uL (4.0-11.0) 17.1x10^3/uL (4.0-11.0) Red Blood Count 2.76x10^6/uL (3.50-5.40) 2.76x10^6/uL (3.50-5.40) Hemoglobin 8.2g/dL (12.0-15.5) 8.2g/dL (12.0-15.5) Hematocrit 25.5% (36.0-47.0) 25.5% (36.0-47.0) Mean Corpuscular Volume 92fL (79-100) 92fL (79-100) Mean Corpuscular Hemoglobin 30pg (25-35) 30pg (25-35) Mean Corpuscular Hemoglobin Concent 32g/dL (31-37) 32g/dL (31-37) Red Cell Distribution Width 15.4% (11.5-14.5) 15.6% (11.5-14.5) Platelet Count 284x10^3/uL (140-400) 285x10^3/uL (140-400) Neutrophils (%) (Auto) 86% (31-73) Lymphocytes (%) (Auto) 8% (24-48) Monocytes (%) (Auto) 6% (0-9) Eosinophils (%) (Auto) 0% (0-3) Basophils (%) (Auto) 0% (0-3) Neutrophils # (Auto) 14.6x10^3uL (1.8-7.7) Lymphocytes # (Auto) 1.3x10^3/uL (1.0-4.8) Monocytes # (Auto) 1.0x10^3/uL (0.0-1.1) Eosinophils # (Auto) 0.0x10^3/uL (0.0-0.7) Basophils # (Auto) 0.1x10^3/uL (0.0-0.2) Sodium Level 147mmol/L (136-145) Potassium Level 4.7mmol/L (3.5-5.1) Chloride Level 115mmol/L (98-107) Carbon Dioxide Level 25mmol/L (21-32) Anion Gap 7 (6-14) Blood Urea Nitrogen 55mg/dL (7-20) Creatinine 0.7mg/dL (0.6-1.0) Estimated GFR (Cockcroft-Gault) 83.2 Glucose Level 111mg/dL (70-99) Calcium Level 7.0mg/dL (8.5-10.1) Allergies: Coded Allergies: amlodipine (Verified Adverse Reaction, Intermediate, Swelling, 08/22/16) Medications: Current Medications Medications (Trade) Dose Ordered Sig/Chrissie Route PRN Reason Start Time Stop Time Status Last Admin Dose Admin Sodium Chloride 1,000 ml @ 0 mls/hr 1X ONCE IV 09/03/16 14:00 09/03/16 14:01 DC 09/03/16 14:00 Sodium Chloride 1,000 ml @ 0 mls/hr 1X ONCE IV 09/03/16 15:45 09/03/16 15:46 DC 09/03/16 16:13 Vancomycin HCl 1 gm/Sodium Chloride 250 ml @ 250 mls/hr 1X ONCE IV 09/03/16 20:00 09/03/16 20:59 DC 09/03/16 20:08 Piperacillin Sod/ Tazobactam Sod 3.375 gm/Sodium Chloride 50 ml @ 100 mls/hr Q6HRS IV 09/03/16 20:00 09/04/16 06:06 Sodium Chloride 1,000 ml @ 1,000 mls/hr 1X ONCE IV 09/03/16 19:00 09/03/16 19:59 DC 09/03/16 19:00 Sodium Chloride 1,000 ml @ 100 mls/hr Q10H IV 09/03/16 20:00 09/04/16 06:07 Norepinephrine Bitartrate/Sodium Chloride (Levophed Vial/ Iv Sodium Chloride 0.9% 250ml) 258 ml @ 0 mls/hr CONT PRN IV SEE I/O RECORD 09/04/16 03:30 09/04/16 03:33 Pantoprazole Sodium (Protonix Vial) 40 mg 1X ONCE IVP 09/04/16 04:00 09/04/16 04:01 DC 09/04/16 04:06 Imaging: Imaging: CXR IMPRESSION: 1. Emphysema. 2. Aortic atherosclerosis. 3. No acute abnormality is detected. LE US IMPRESSION: There is no sonographic evidence of deep vein thrombosis in the left lower extremity PE: GEN: pale HEENT: Atraumatic, PERRL LUNGS: decreased bilaterally anteriorly, nasal cannula HEART: tachycardic ABD: BS+, epigastric tenderness EXTREMITY: No edema SKIN: No rashes, no jaundice NEURO/PSYCH: A & O 3, forgetful OTHER: witnessed melanotic stool A/P: A/P: Anemia, melena, hypotension, tachycardia -labs/vital as above -?Warfarin use ?h/o PUD -years ago, no current treatment CRC screen -recalls previous colonoscopy COPD on O2 Recent hip surgery -- D/w pt, RN, GI lab, Dr. Vail. Needs IV access. NPO. PPI drip. Blood transfusions. EGD this FELICITAS Faustin Sep 04, 2016 08:57
--- NOTE | 2016-09-04 09:10 | RAD ---
Portable chest, 09/04/2016: History: Shortness of breath Comparison is made to a study from 09/03/2016. The heart size is normal. There is calcific plaquing of the aorta. There are emphysematous changes in the lungs. No acute infiltrates are seen. There is no evidence of pleural fluid. IMPRESSION: No acute cardiopulmonary abnormality is detected with no significant change since yesterday's study.
[2016-09-04] MEDS ORDERED: PROPOFOL 40 ML IV ONE (10:58)
[2016-09-04] MEDS ORDERED: LIDOCAINE 2% PF Vial for OR 5 ML VIAL. ONE (10:58)
--- NOTE | 2016-09-04 11:31 | CONS ---
DATE OF CONSULTATION: 09/04/2016 REQUESTING PHYSICIAN: Dr. Carmelo Ochoa. REASON FOR CONSULTATION: Possible sepsis, lactic acidosis. HISTORY OF PRESENT ILLNESS: This is a 70-year-old female who has had recent two surgeries on the left hip. The patient had left intertrochanteric/subtrochanteric hip fracture with internal fixation and then subsequently she fell and broke that again and then a second surgery was on 08/22/2016, with hardware removal of 3 screws and then cemented left hip hemiarthroplasty was done. The patient then was admitted again with anemia and now she is back again with hypotension, encephalopathy and ramon bleeding per rectum. The patient is awake and having a moderate respiratory distress and ramon blood per rectum, not able to provide much information. The patient is on vasopressor support. Also, the patient was given one dose of vancomycin and on Zosyn, having lactic acid elevated and leukocytosis. PAST MEDICAL HISTORY: Positive for hypertension, renal insufficiency, COPD, depression, anxiety disorder, has had hysterectomy and the recent two hip surgeries and anemia. SOCIAL HISTORY: Unable to obtain. ALLERGIES: LISTED ALLERGIC TO AMLODIPINE. CURRENT MEDICATIONS: Reviewed. The patient is on Zosyn and one dose of vancomycin was given. REVIEW OF SYSTEMS: Unable to do other than what I mentioned in the HPI. PHYSICAL EXAMINATION: GENERAL: Awake female in moderate respiratory distress. VITAL SIGNS: Temperature 99.8, pulse 130, respirations 28-30, blood pressure 87/67. HEENT: Both pupils are round and reacting. No conjunctival lesion, no lesion in the mouth. NECK: Supple, no JVP. LUNGS: Bilateral moderate air entry. No crackles. HEART: S1, S2 regular. No gallop. Tachycardic. ABDOMEN: Soft, nontender. EXTREMITIES: No edema, cyanosis. The patient's left hip incision has mild serous drainage, no erythema, no signs of obvious infection. NEUROLOGICAL: The patient is lethargic and unable to communicate much. LABORATORY DATA: White count is 17.1, hemoglobin 8.2 after transfusion ____ 6.9, platelets are normal. BUN is 55, creatinine is 0.7, lactic acid 2.6. Urinalysis unremarkable. Prior cultures reviewed. Chest x-ray is not showing any acute infiltrate. IMPRESSION: 1. Lactic acidosis likely secondary to gastrointestinal bleed and hypoperfusion, infection is possible, although less likely. 2. Gastrointestinal bleed. 3. Anemia. 4. Minor serous drainage from the left hip surgery site. 5. ____ insufficiency. 6. Encephalopathy. PLAN: Recommend continue supportive care. Continue Zosyn for now. The patient is scheduled to have an EGD pretty soon this morning and may even get intubated. We will continue to follow. Thank you very much, Dr. Ochoa, for giving me the opportunity to participate in this patient's care. LETITIA HUSTON MD DR: KAYODE/marni JOB#: [id number] / [id number]
[2016-09-04] MEDS ORDERED: EPINEPHRINE 1 MG/10 ML SYRINGE. ONE ×2 (12:02→12:05)
[2016-09-04] MEDS ORDERED: EPINEPHRINE 1 MG/ML VIAL. SQ ONE (12:08)
[2016-09-04] MEDS ORDERED: EPINEPHRINE 1 MG/10 ML SYRINGE. SQ ONE (12:11)
--- NOTE | 2016-09-04 12:40 | PDOC4 ---
Operative Note Operative Note EGD with bx/control of bleeding Meds propofol per anesthesia Pre-op dx acute blood loss anemia Post- op dx erosive gastritis multiple duodenal ulcers largest 3 cm with visible vessel 2nd portion posterior wall duodenum s/p cautery/epi injection 6 cc 1/12143 dilution Plan transfusional support to maintian Hg >8 PPI acid suppression IR and surgical consults if patient rebleeds for embolization prior to surgery TAURUS COOPER MD Sep 04, 2016 12:40
[2016-09-04 13:29] LABS: HEMOGLOBIN 12.8 g/dL (12.0-15.5); RED BLOOD COUNT 4.55 x10^6/uL (3.50-5.40); RED CELL DISTRIBUTION WIDTH 16.5 % (11.5-14.5); WHITE BLOOD COUNT 16.6 x10^3/uL (4.0-11.0)
--- NOTE | 2016-09-04 15:31 | OP ---
DATE OF SURGERY: 09/04/2016 PROCEDURE: Esophagogastroduodenoscopy with biopsy, epinephrine injection and cautery with gold probe. PREOPERATIVE DIAGNOSIS: Acute blood loss anemia. POSTOPERATIVE DIAGNOSES: Multiple duodenal ulcers in the posterior wall, second portion, one with visible vessel, status post epinephrine injection, status post cautery measuring approximately 3 cm in diameter; erosive gastritis, status post biopsies. DESCRIPTION OF PROCEDURE: After risks and benefits of procedure including the risk of hemorrhage and perforation at the time of operation were discussed with the patient and family, informed consent was obtained. The patient was then resuscitated with fluids using a ____, received 3 units as well as 2 liters of saline to stabilize her blood pressure. She then received propofol anesthesia with [employer]. Endoscope was advanced through the esophagus, which was unrevealing for esophagitis, varices or stricture. Serial inspection of stomach including retroflexion did reveal nonerosive gastritis within the duodenum, multiple ulcers were encountered, one of which measuring approximately 3 cm in maximal diameter in the posterior wall, had a visible vessel with pigmented protuberance and inherent clot, this was washed. This was then injected with epinephrine, 6 mL total and cauterized with a gold probe with cessation of bleeding for the time being. The patient is at increased risk of bleeding approximately 50%, will be watched, will be on the PPI IV, acid prophylaxis as well serial transfusions to maintain the hemoglobin greater than 8. If the patient should have rebleeding, an embolization would be preferred and surgical backup will be obtained as well. Thank you Dr. Ochoa for allowing us to consult and participating in this patient's care. TAURUS COOPER MD DR: STACY/marni JOB#: [id number] / [id number] JAMIN Mandujano MD
[2016-09-04 17:22] LABS: HEMATOCRIT 41.2 % (36.0-47.0); HEMOGLOBIN 13.2 g/dL (12.0-15.5); RED BLOOD COUNT 4.69 x10^6/uL (3.50-5.40); RED CELL DISTRIBUTION WIDTH 16.7 % (11.5-14.5); WHITE BLOOD COUNT 21.7 x10^3/uL (4.0-11.0)
[2016-09-04 17:28] LABS: HCO3 ABG 19 mmol/L (21-28); PCO2 ABG 58 mmHg (35-46); PO2 ABG 85 mmHg (65-108); SAT O2 ABG 95 % (92-99)
[2016-09-04 18:07] LABS: FIO2 ABG 32; PH ABG 7.14 (7.35-7.45)
--- NOTE | 2016-09-04 19:26 | PDOC ---
GENERAL General: seen/examined in icu this am. Hb 8.3 with ongoing hypotension requiring pressors. 2 more units prbc's ordered. blood in bed from stool. GI consult ordered as well as ID eval. Pale, sweating, little confused. chest with decreased breath sounds and heart tachycardia persists. O2 sats are good on 3L/ NC. continue supportive care with GI endoscopy today. Problems: VITAL SIGNS Vital Signs: Vital Signs Date Time Temp Pulse Resp B/P Pulse Ox O2 Delivery O2 Flow Rate FiO2 09/04/16 18:00 132 20 132/67 100 Nasal Cannula 3.0 09/04/16 16:00 98.1 98.1 I & O I & O Intake and Output 09/04/16 07:00 Intake Total 2050 ml Output Total 703 ml Balance 1347 ml Intake IV Total 2000 ml Blood Product IV Normal Saline Flush 50 ml Output Urine Total 700 ml Stool Total 3 ml ALLERGIES Allergies: Allergies Coded Allergies Type Severity Reaction Last Updated Verified amlodipine Adverse Reaction Intermediate Swelling 09/04/16 Yes MEDS Medications: Current Medications Medications (Trade) Dose Ordered Sig/Chrissie Start Time Stop Time Status Last Admin Dose Admin Epinephrine HCl (Adrenalin) 1 mg STK-MED ONCE 09/04/16 12:08 09/04/16 14:25 DC 09/04/16 12:08 0.2 MG Epinephrine HCl (Epinephrine Syringe) 1 mg STK-MED ONCE 09/04/16 12:11 09/04/16 14:25 DC 09/04/16 12:11 0.4 MG Heparin Sodium/ Sodium Chloride 500 ml @ As Directed STK-MED ONCE 09/04/16 13:12 09/04/16 13:13 DC Heparin Sodium/ Sodium Chloride 60 unit 60 unit 1X ONCE 09/04/16 08:45 09/04/16 08:46 DC Lidocaine HCl (Lidocaine Pf 2% Vial) 5 ml STK-MED ONCE 09/04/16 10:58 09/04/16 10:59 DC Lidocaine/Sodium Bicarbonate (Buffered Lidocaine 1%) 3 ml 1X ONCE 09/04/16 08:45 09/04/16 08:46 DC Lidocaine/Sodium Bicarbonate 20 ml 20 ml STK-MED ONCE 09/04/16 13:12 09/04/16 13:13 DC Norepinephrine Bitartrate/Sodium Chloride (Levophed Vial/ Iv Sodium Chloride 0.9% 250ml) 258 ml @ 0 mls/hr CONT PRN 09/04/16 03:30 09/04/16 03:33 9.67 MLS/HR Pantoprazole Sodium 40 mg 40 mg 1X ONCE 09/04/16 04:00 09/04/16 04:01 DC 09/04/16 04:06 40 MG Pantoprazole Sodium 80 mg/ Sodium Chloride 100 ml @ 10 mls/hr Q10H 09/04/16 08:45 UNV Pantoprazole Sodium/Sodium Chloride (Protonix Iv/Iv Sodium Chloride 0.9% 100ml) 100 ml @ 10 mls/hr Q10H 09/04/16 08:45 09/04/16 08:45 10 MLS/HR Piperacillin Sod/ Tazobactam Sod 3.375 gm/Sodium Chloride 50 ml @ 100 mls/hr Q6HRS 09/03/16 20:00 09/04/16 18:42 100 MLS/HR Propofol (Diprivan) 40 ml @ As Directed STK-MED ONCE 09/04/16 10:58 09/04/16 10:59 DC Sodium Chloride 1,000 ml @ 100 mls/hr Q10H 09/03/16 20:00 09/04/16 14:09 100 MLS/HR Vancomycin HCl 1 gm/Sodium Chloride 250 ml @ 250 mls/hr 1X ONCE 09/03/16 20:00 09/03/16 20:59 DC 09/03/16 20:08 250 MLS/HR LAB Lab: Laboratory Tests Test 09/04/16 01:30 09/04/16 05:00 09/04/16 13:25 09/04/16 17:00 White Blood Count 17.3x10^3/uL (4.0-11.0) 17.1x10^3/uL (4.0-11.0) 16.6x10^3/uL (4.0-11.0) 21.7x10^3/uL (4.0-11.0) Red Blood Count 2.76x10^6/uL (3.50-5.40) 2.76x10^6/uL (3.50-5.40) 4.55x10^6/uL (3.50-5.40) 4.69x10^6/uL (3.50-5.40) Hemoglobin 8.2g/dL (12.0-15.5) 8.2g/dL (12.0-15.5) 12.8g/dL (12.0-15.5) 13.2g/dL (12.0-15.5) Hematocrit 25.5% (36.0-47.0) 25.5% (36.0-47.0) 40.0% (36.0-47.0) 41.2% (36.0-47.0) Mean Corpuscular Volume 92fL (79-100) 92fL (79-100) 88fL (79-100) 88fL (79- 100) Mean Corpuscular Hemoglobin 30pg (25-35) 30pg (25-35) 28pg (25-35) 28pg (25- 35) Mean Corpuscular Hemoglobin Concent 32g/dL (31-37) 32g/dL (31-37) 32g/dL (31-37) 32g/dL (31-37) Red Cell Distribution Width 15.4% (11.5-14.5) 15.6% (11.5-14.5) 16.5% (11.5-14.5) 16.7% (11.5-14.5) Platelet Count 284x10^3/uL (140-400) 285x10^3/uL (140-400) 243x10^3/uL (140-400) 228x10^3/uL (140-400) Neutrophils (%) (Auto) 86% (31-73) Lymphocytes (%) (Auto) 8% (24-48) Monocytes (%) (Auto) 6% (0-9) Eosinophils (%) (Auto) 0% (0-3) Basophils (%) (Auto) 0% (0-3) Neutrophils # (Auto) 14.6x10^3uL (1.8-7.7) Lymphocytes # (Auto) 1.3x10^3/uL (1.0-4.8) Monocytes # (Auto) 1.0x10^3/uL (0.0-1.1) Eosinophils # (Auto) 0.0x10^3/uL (0.0-0.7) Basophils # (Auto) 0.1x10^3/uL (0.0-0.2) Sodium Level 147mmol/L (136-145) Potassium Level 4.7mmol/L (3.5-5.1) Chloride Level 115mmol/L (98-107) Carbon Dioxide Level 25mmol/L (21-32) Anion Gap 7 (6-14) Blood Urea Nitrogen 55mg/dL (7-20) Creatinine 0.7mg/dL (0.6-1.0) Estimated GFR (Cockcroft-Gault) 83.2 Glucose Level 111mg/dL (70-99) Calcium Level 7.0mg/dL (8.5-10.1) Test 09/04/16 17:11 O2 Saturation 95% (92-99) Arterial Blood pH 7.14 (7.35-7.45) Arterial Blood pCO2 at Patient Temp 58mmHg (35-46) Arterial Blood pO2 at Patient Temp 85mmHg (65-108) Arterial Blood HCO3 19mmol/L (21-28) Arterial Blood Base Excess -10mmol/L (-3-3) FiO2 32 APPL,JAMIN Laird MD Sep 04, 2016 19:26
[2016-09-05] VITALS (29 sets, daily range): BP systolic 49–136; BP diastolic 37–81
[2016-09-05] MEDS: PIPERACILLIN/TAZOBACTAM 3.375 GM in IV NORMAL SALINE 50ML 50 ML IV SCH ×4 (00:13→17:38)
[2016-09-05 00:24] LABS: HEMATOCRIT 38.6 % (36.0-47.0); HEMOGLOBIN 12.3 g/dL (12.0-15.5); RED BLOOD COUNT 4.37 x10^6/uL (3.50-5.40); RED CELL DISTRIBUTION WIDTH 16.9 % (11.5-14.5); WHITE BLOOD COUNT 25.8 x10^3/uL (4.0-11.0)
[2016-09-05] MEDS: IV NORMAL SALINE 1000ML BAG 1,000 ML IV SCH (02:13)
[2016-09-05 06:13] LABS: HEMATOCRIT 38.2 % (36.0-47.0); HEMOGLOBIN 12.3 g/dL (12.0-15.5); RED BLOOD COUNT 4.34 x10^6/uL (3.50-5.40); RED CELL DISTRIBUTION WIDTH 17.2 % (11.5-14.5); WHITE BLOOD COUNT 26.1 x10^3/uL (4.0-11.0)
--- NOTE | 2016-09-05 06:31 | CONS ---
DATE OF CONSULTATION: 09/04/2016 REQUESTING PHYSICIAN: Dr. Jamin Ochoa. REASON FOR CONSULTATION: Recent left hip surgery with anemia and some wound drainage. HISTORY OF PRESENT ILLNESS: The patient is well familiar to me status post fixation of a femoral neck fracture and subsequent reinjury below that level in a fall, which necessitated removal of hardware, conversion to a hemiarthroplasty with cable plate ____ fixation of her fracture, which was an extensive complicated procedure. She was noted to have significant expected blood loss from the procedure itself and was coming along slowly in terms of rehabilitation as expected due to the severe nature of the injury and the extensive nature of the surgery and is now readmitted for some medical issues including anemia. She was noted last night to have some significant drainage when she was moved. As of this morning, dressing was changed and her wound appeared really clean, dry and intact, rosy were intact, just a minimal skin reaction to the rosy themselves, but no significant erythema or other concerns. PHYSICAL EXAMINATION: The patient had minimal pain on bearing weight through an extended extremity, really no pain on bearing weight through an extended extremity at the operative hip, and minimal discomfort with rotation and gentle range of motion of the hip. TREATMENT PLAN: I explained to her that the difference between these 2 is that the weightbearing through an extended extremity really does not stress or stretch the surrounding muscles, which are stretched with the rotation and more buried motion, which is certainly expected. Regarding her cause of anemia while certainly it is possible of acute blood loss, I really see no evidence of continuing blood loss based on examination of her hip, it is noted that she does have some blood in her stool and is scheduled to undergo an EGD test today. From an orthopedic standpoint, she can be mobilized with standard total hip precautions and can be weightbearing as tolerated as allowed by her medical condition. KACIE FUENTES MD DR: CHAI/marni JOB#: [id number] / [id number] JAMIN Mandujano MD
[2016-09-05 06:54] LABS: CALCIUM 7.9 mg/dL (8.5-10.1); GFR 55.1; POTASSIUM 3.8 mmol/L (3.5-5.1)
[2016-09-05] MEDS: PANTOPRAZOLE SODIUM IV 80 MG in IV NORMAL SALINE 100ML 100 ML IV SCH ×2 (08:17→19:58)
[2016-09-05 08:22] LABS: HCO3 ABG 17 mmol/L (21-28); PCO2 ABG 42 mmHg (35-46); PH ABG 7.22 (7.35-7.45); PO2 ABG 79 mmHg (65-108); SAT O2 ABG 95 % (92-99)
--- NOTE | 2016-09-05 08:26 | PDOC ---
GENERAL General: vss and afebrile. awake and alert and on bi-pap this am. Hb stable at 12.3. wbc still elevated at 26K. creatinine at 1.0. decreased urine output with diffuse edema. Repeat ABG this am with pH of 7.217 and cw metabolic acidosis. Na 151 and will change to 1/2 NS with one amp HCO3 at 100 per hour and ask for renal help with same. otherwise same. Problems: VITAL SIGNS Vital Signs: Vital Signs Date Time Temp Pulse Resp B/P Pulse Ox O2 Delivery O2 Flow Rate FiO2 09/05/16 07:00 111 17 119/63 95 BiPAP/CPAP 09/05/16 05:00 98.9 98.9 09/04/16 18:00 3.0 I & O I & O Intake and Output 09/05/16 07:00 Intake Total 3248 ml Output Total 843 ml Balance 2405 ml Intake IV Total 3248 ml Output Urine Total 840 ml Stool Total 3 ml ALLERGIES Allergies: Allergies Coded Allergies Type Severity Reaction Last Updated Verified amlodipine Adverse Reaction Intermediate Swelling 09/04/16 Yes MEDS Medications: Current Medications Medications (Trade) Dose Ordered Sig/Chrissie Start Time Stop Time Status Last Admin Dose Admin Epinephrine HCl (Adrenalin) 1 mg STK-MED ONCE 09/04/16 12:08 09/04/16 14:25 DC 09/04/16 12:08 0.2 MG Epinephrine HCl (Epinephrine Syringe) 1 mg STK-MED ONCE 09/04/16 12:11 09/04/16 14:25 DC 09/04/16 12:11 0.4 MG Heparin Sodium/ Sodium Chloride 500 ml @ As Directed STK-MED ONCE 09/04/16 13:12 09/04/16 13:13 DC Heparin Sodium/ Sodium Chloride 60 unit 60 unit 1X ONCE 09/04/16 08:45 09/04/16 08:46 DC Lidocaine HCl (Lidocaine Pf 2% Vial) 5 ml STK-MED ONCE 09/04/16 10:58 09/04/16 10:59 DC Lidocaine/Sodium Bicarbonate (Buffered Lidocaine 1%) 3 ml 1X ONCE 09/04/16 08:45 09/04/16 08:46 DC Lidocaine/Sodium Bicarbonate 20 ml 20 ml STK-MED ONCE 09/04/16 13:12 09/04/16 13:13 DC Norepinephrine Bitartrate/Sodium Chloride (Levophed Vial/ Iv Sodium Chloride 0.9% 250ml) 258 ml @ 0 mls/hr CONT PRN 09/04/16 03:30 09/04/16 03:33 9.67 MLS/HR Pantoprazole Sodium 40 mg 40 mg 1X ONCE 09/04/16 04:00 09/04/16 04:01 DC 09/04/16 04:06 40 MG Pantoprazole Sodium 80 mg/ Sodium Chloride 100 ml @ 10 mls/hr Q10H 09/04/16 08:45 UNV Pantoprazole Sodium/Sodium Chloride (Protonix Iv/Iv Sodium Chloride 0.9% 100ml) 100 ml @ 10 mls/hr Q10H 09/04/16 08:45 09/05/16 08:17 10 MLS/HR Piperacillin Sod/ Tazobactam Sod 3.375 gm/Sodium Chloride 50 ml @ 100 mls/hr Q6HRS 09/03/16 20:00 09/05/16 05:56 100 MLS/HR Propofol (Diprivan) 40 ml @ As Directed STK-MED ONCE 09/04/16 10:58 09/04/16 10:59 DC Sodium Chloride 1,000 ml @ 100 mls/hr Q10H 09/03/16 20:00 09/05/16 02:13 100 MLS/HR Vancomycin HCl 1 gm/Sodium Chloride 250 ml @ 250 mls/hr 1X ONCE 09/03/16 20:00 09/03/16 20:59 DC 09/03/16 20:08 250 MLS/HR LAB Lab: Laboratory Tests Test 09/04/16 13:25 09/04/16 17:00 09/04/16 17:11 09/05/16 00:01 White Blood Count 16.6x10^3/uL (4.0-11.0) 21.7x10^3/uL (4.0-11.0) 25.8x10^3/uL (4.0-11.0) Red Blood Count 4.55x10^6/uL (3.50-5.40) 4.69x10^6/uL (3.50-5.40) 4.37x10^6/uL (3.50-5.40) Hemoglobin 12.8g/dL (12.0-15.5) 13.2g/dL (12.0-15.5) 12.3g/dL (12.0-15.5) Hematocrit 40.0% (36.0-47.0) 41.2% (36.0-47.0) 38.6% (36.0-47.0) Mean Corpuscular Volume 88fL (79-100) 88fL (79-100) 89fL (79-100) Mean Corpuscular Hemoglobin 28pg (25-35) 28pg (25-35) 28pg (25-35) Mean Corpuscular Hemoglobin Concent 32g/dL (31-37) 32g/dL (31-37) 32g/dL (31-37) Red Cell Distribution Width 16.5% (11.5-14.5) 16.7% (11.5-14.5) 16.9% (11.5-14.5) Platelet Count 243x10^3/uL (140-400) 228x10^3/uL (140-400) 245x10^3/uL (140-400) O2 Saturation 95% (92-99) Arterial Blood pH 7.14 (7.35-7.45) Arterial Blood pCO2 at Patient Temp 58mmHg (35-46) Arterial Blood pO2 at Patient Temp 85mmHg (65-108) Arterial Blood HCO3 19mmol/L (21-28) Arterial Blood Base Excess -10mmol/L (-3-3) FiO2 32 Test 09/05/16 06:00 09/05/16 06:11 White Blood Count 26.1x10^3/uL (4.0-11.0) Red Blood Count 4.34x10^6/uL (3.50-5.40) Hemoglobin 12.3g/dL (12.0-15.5) Hematocrit 38.2% (36.0-47.0) Mean Corpuscular Volume 88fL (79-100) Mean Corpuscular Hemoglobin 28pg (25-35) Mean Corpuscular Hemoglobin Concent 32g/dL (31-37) Red Cell Distribution Width 17.2% (11.5-14.5) Platelet Count 246x10^3/uL (140-400) Sodium Level 151mmol/L (136-145) Potassium Level 3.8mmol/L (3.5-5.1) Chloride Level 118mmol/L (98-107) Carbon Dioxide Level 19mmol/L (21-32) Anion Gap 14 (6-14) Blood Urea Nitrogen 50mg/dL (7-20) Creatinine 1.0mg/dL (0.6-1.0) Estimated GFR (Cockcroft-Gault) 55.1 Glucose Level 121mg/dL (70-99) Calcium Level 7.9mg/dL (8.5-10.1) JAMIN EVANS MD Sep 05, 2016 08:26
[2016-09-05 08:49] LABS: FIO2 ABG 30
[2016-09-05] MEDS ORDERED: SODIUM BICARBONATE VIAL 50 MEQ in IV 1/2 NORMAL SALINE 1,000 ML IV SCH (09:30)
--- NOTE | 2016-09-05 09:36 | PDOC ---
G I PROGRESS NOTE Subjective Eyes open, on BIPAP. No real attempt to communicate. Objective Staff report no melena. Physical Exam Lungs wheezy. RRR, tachy. Abdomen soft, not distended nor apparently tender. Review of Relevant I have reviewed the following items pako (where applicable) has been applied. Labs Laboratory Tests Test 09/03/16 13:50 09/03/16 14:00 09/03/16 15:00 09/03/16 16:55 White Blood Count 18.3x10^3/uL (4.0-11.0) Red Blood Count 2.41x10^6/uL (3.50-5.40) Hemoglobin 6.9g/dL (12.0-15.5) Hematocrit 22.3% (36.0-47.0) Mean Corpuscular Volume 92fL (79-100) Mean Corpuscular Hemoglobin 29pg (25-35) Mean Corpuscular Hemoglobin Concent 31g/dL (31-37) Red Cell Distribution Width 15.6% (11.5-14.5) Platelet Count 456x10^3/uL (140-400) Neutrophils (%) (Auto) 87% (31-73) Lymphocytes (%) (Auto) 5% (24-48) Monocytes (%) (Auto) 8% (0-9) Eosinophils (%) (Auto) 1% (0-3) Basophils (%) (Auto) 0% (0-3) Neutrophils # (Auto) 15.9x10^3uL (1.8-7.7) Lymphocytes # (Auto) 0.9x10^3/uL (1.0-4.8) Monocytes # (Auto) 1.4x10^3/uL (0.0-1.1) Eosinophils # (Auto) 0.1x10^3/uL (0.0-0.7) Basophils # (Auto) 0.0x10^3/uL (0.0-0.2) Segmented Neutrophils % 88% (35-66) Band Neutrophils % 3% (0-9) Lymphocytes % 5% (24-48) Monocytes % 2% (0-10) Eosinophils % 1% (0-5) Myelocytes % 1% (0-0) Platelet Estimate Increased (ADEQUATE) Hypochromasia Slight Anisocytosis Slight Macrocytosis Slight Prothrombin Time 13.1SEC (11.7-14.0) Prothromb Time International Ratio 1.1 (0.8-1.1) Sodium Level 142mmol/L (136-145) Potassium Level 4.3mmol/L (3.5-5.1) Chloride Level 104mmol/L (98-107) Carbon Dioxide Level 29mmol/L (21-32) Anion Gap 9 (6-14) Blood Urea Nitrogen 47mg/dL (7-20) Creatinine 1.1mg/dL (0.6-1.0) Estimated GFR (Cockcroft-Gault) 49.4 BUN/Creatinine Ratio 43 (6-20) Glucose Level 141mg/dL (70-99) Lactic Acid Level 2.6mmol/L (0.4-2.0) Calcium Level 7.9mg/dL (8.5-10.1) Total Bilirubin 0.3mg/dL (0.2-1.0) Aspartate Amino Transf (AST/SGOT) 28U/L (15-37) Alanine Aminotransferase (ALT/SGPT) 29U/L (14-59) Alkaline Phosphatase 123U/L (46-116) Troponin I Quantitative < 0.017ng/mL (0.000-0.055) Total Protein 4.9g/dL (6.4-8.2) Albumin 1.7g/dL (3.4-5.0) Albumin/Globulin Ratio 0.5 (1.0-1.7) Lipase 265U/L (73-393) Stool Occult Blood Negative (NEG) Positive (NEG) Urine Collection Type U cath Urine Color Yellow Urine Clarity Clear Urine pH 5.5 Urine Specific [place] 1.015 Urine Protein Negativemg/dL (NEG-TRACE) Urine Glucose (UA) Negativemg/dL (NEG) Urine Ketones (Stick) Negativemg/dL (NEG) Urine Blood Negative (NEG) Urine Nitrite Negative (NEG) Urine Bilirubin Negative (NEG) Urine Urobilinogen Dipstick 0.2mg/dL (0.2 mg/dL) Urine Leukocyte Esterase Negative (NEG) Urine RBC 0/HPF (0-2) Urine WBC 0/HPF (0-4) Urine Renal Epithelial Cells Few/LPF Urine Bacteria 0/HPF (0-FEW) Urine Hyaline Casts Few/HPF Urine Mucus Mod/LPF Test 3/30/17 18:45 09/04/16 01:30 09/04/16 05:00 09/04/16 13:25 Nasal Screen MRSA (PCR) Negative (Negative) Stool Occult Blood Positive (NEG) White Blood Count 17.3x10^3/uL (4.0-11.0) 17.1x10^3/uL (4.0-11.0) 16.6x10^3/uL (4.0-11.0) Red Blood Count 2.76x10^6/uL (3.50-5.40) 2.76x10^6/uL (3.50-5.40) 4.55x10^6/uL (3.50-5.40) Hemoglobin 8.2g/dL (12.0-15.5) 8.2g/dL (12.0-15.5) 12.8g/dL (12.0-15.5) Hematocrit 25.5% (36.0-47.0) 25.5% (36.0-47.0) 40.0% (36.0-47.0) Mean Corpuscular Volume 92fL (79-100) 92fL (79-100) 88fL (79-100) Mean Corpuscular Hemoglobin 30pg (25-35) 30pg (25-35) 28pg (25-35) Mean Corpuscular Hemoglobin Concent 32g/dL (31-37) 32g/dL (31-37) 32g/dL (31-37) Red Cell Distribution Width 15.4% (11.5-14.5) 15.6% (11.5-14.5) 16.5% (11.5-14.5) Platelet Count 284x10^3/uL (140-400) 285x10^3/uL (140-400) 243x10^3/uL (140-400) Neutrophils (%) (Auto) 86% (31-73) Lymphocytes (%) (Auto) 8% (24-48) Monocytes (%) (Auto) 6% (0-9) Eosinophils (%) (Auto) 0% (0-3) Basophils (%) (Auto) 0% (0-3) Neutrophils # (Auto) 14.6x10^3uL (1.8-7.7) Lymphocytes # (Auto) 1.3x10^3/uL (1.0-4.8) Monocytes # (Auto) 1.0x10^3/uL (0.0-1.1) Eosinophils # (Auto) 0.0x10^3/uL (0.0-0.7) Basophils # (Auto) 0.1x10^3/uL (0.0-0.2) Sodium Level 147mmol/L (136-145) Potassium Level 4.7mmol/L (3.5-5.1) Chloride Level 115mmol/L (98-107) Carbon Dioxide Level 25mmol/L (21-32) Anion Gap 7 (6-14) Blood Urea Nitrogen 55mg/dL (7-20) Creatinine 0.7mg/dL (0.6-1.0) Estimated GFR (Cockcroft-Gault) 83.2 Glucose Level 111mg/dL (70-99) Calcium Level 7.0mg/dL (8.5-10.1) Test 09/04/16 17:00 09/04/16 17:11 09/05/16 00:01 09/05/16 06:00 White Blood Count 21.7x10^3/uL (4.0-11.0) 25.8x10^3/uL (4.0-11.0) 26.1x10^3/uL (4.0-11.0) Red Blood Count 4.69x10^6/uL (3.50-5.40) 4.37x10^6/uL (3.50-5.40) 4.34x10^6/uL (3.50-5.40) Hemoglobin 13.2g/dL (12.0-15.5) 12.3g/dL (12.0-15.5) 12.3g/dL (12.0-15.5) Hematocrit 41.2% (36.0-47.0) 38.6% (36.0-47.0) 38.2% (36.0-47.0) Mean Corpuscular Volume 88fL (79-100) 89fL (79-100) 88fL (79-100) Mean Corpuscular Hemoglobin 28pg (25-35) 28pg (25-35) 28pg (25-35) Mean Corpuscular Hemoglobin Concent 32g/dL (31-37) 32g/dL (31-37) 32g/dL (31-37) Red Cell Distribution Width 16.7% (11.5-14.5) 16.9% (11.5-14.5) 17.2% (11.5-14.5) Platelet Count 228x10^3/uL (140-400) 245x10^3/uL (140-400) 246x10^3/uL (140-400) O2 Saturation 95% (92-99) Arterial Blood pH 7.14 (7.35-7.45) Arterial Blood pCO2 at Patient Temp 58mmHg (35-46) Arterial Blood pO2 at Patient Temp 85mmHg (65-108) Arterial Blood HCO3 19mmol/L (21-28) Arterial Blood Base Excess -10mmol/L (-3-3) FiO2 32 Test 09/05/16 06:11 09/05/16 08:00 Sodium Level 151mmol/L (136-145) Potassium Level 3.8mmol/L (3.5-5.1) Chloride Level 118mmol/L (98-107) Carbon Dioxide Level 19mmol/L (21-32) Anion Gap 14 (6-14) Blood Urea Nitrogen 50mg/dL (7-20) Creatinine 1.0mg/dL (0.6-1.0) Estimated GFR (Cockcroft-Gault) 55.1 Glucose Level 121mg/dL (70-99) Calcium Level 7.9mg/dL (8.5-10.1) O2 Saturation 95% (92-99) Arterial Blood pH 7.22 (7.35-7.45) Arterial Blood pCO2 at Patient Temp 42mmHg (35-46) Arterial Blood pO2 at Patient Temp 79mmHg (65-108) Arterial Blood HCO3 17mmol/L (21-28) Arterial Blood Base Excess -11mmol/L (-3-3) FiO2 30 Laboratory Tests Test 09/04/16 13:25 09/04/16 17:00 09/04/16 17:11 09/05/16 00:01 White Blood Count 16.6x10^3/uL (4.0-11.0) 21.7x10^3/uL (4.0-11.0) 25.8x10^3/uL (4.0-11.0) Red Blood Count 4.55x10^6/uL (3.50-5.40) 4.69x10^6/uL (3.50-5.40) 4.37x10^6/uL (3.50-5.40) Hemoglobin 12.8g/dL (12.0-15.5) 13.2g/dL (12.0-15.5) 12.3g/dL (12.0-15.5) Hematocrit 40.0% (36.0-47.0) 41.2% (36.0-47.0) 38.6% (36.0-47.0) Mean Corpuscular Volume 88fL (79-100) 88fL (79-100) 89fL (79-100) Mean Corpuscular Hemoglobin 28pg (25-35) 28pg (25-35) 28pg (25-35) Mean Corpuscular Hemoglobin Concent 32g/dL (31-37) 32g/dL (31-37) 32g/dL (31-37) Red Cell Distribution Width 16.5% (11.5-14.5) 16.7% (11.5-14.5) 16.9% (11.5-14.5) Platelet Count 243x10^3/uL (140-400) 228x10^3/uL (140-400) 245x10^3/uL (140-400) O2 Saturation 95% (92-99) Arterial Blood pH 7.14 (7.35-7.45) Arterial Blood pCO2 at Patient Temp 58mmHg (35-46) Arterial Blood pO2 at Patient Temp 85mmHg (65-108) Arterial Blood HCO3 19mmol/L (21-28) Arterial Blood Base Excess -10mmol/L (-3-3) FiO2 32 Test 09/05/16 06:00 09/05/16 06:11 09/05/16 08:00 White Blood Count 26.1x10^3/uL (4.0-11.0) Red Blood Count 4.34x10^6/uL (3.50-5.40) Hemoglobin 12.3g/dL (12.0-15.5) Hematocrit 38.2% (36.0-47.0) Mean Corpuscular Volume 88fL (79-100) Mean Corpuscular Hemoglobin 28pg (25-35) Mean Corpuscular Hemoglobin Concent 32g/dL (31-37) Red Cell Distribution Width 17.2% (11.5-14.5) Platelet Count 246x10^3/uL (140-400) Sodium Level 151mmol/L (136-145) Potassium Level 3.8mmol/L (3.5-5.1) Chloride Level 118mmol/L (98-107) Carbon Dioxide Level 19mmol/L (21-32) Anion Gap 14 (6-14) Blood Urea Nitrogen 50mg/dL (7-20) Creatinine 1.0mg/dL (0.6-1.0) Estimated GFR (Cockcroft-Gault) 55.1 Glucose Level 121mg/dL (70-99) Calcium Level 7.9mg/dL (8.5-10.1) O2 Saturation 95% (92-99) Arterial Blood pH 7.22 (7.35-7.45) Arterial Blood pCO2 at Patient Temp 42mmHg (35-46) Arterial Blood pO2 at Patient Temp 79mmHg (65-108) Arterial Blood HCO3 17mmol/L (21-28) Arterial Blood Base Excess -11mmol/L (-3-3) FiO2 30 Microbiology 09/03/16 Blood Culture - Preliminary, Resulted NO GROWTH AFTER 1 DAY Hemoglobin stable. Medications Current Medications Sodium Chloride 1,000 ml @ 0 mls/hr 1X ONCE IV Last administered on 14:00; Start 09/03/16 at 14:00; Stop 09/03/16 at 14:01; Status DC Sodium Chloride 1,000 ml @ 0 mls/hr 1X ONCE IV Last administered on 16:13; Start 09/03/16 at 15:45; Stop 09/03/16 at 15:46; Status DC Vancomycin HCl 1 gm/Sodium Chloride 250 ml @ 250 mls/hr 1X ONCE IV Last administered on 09/03/16 20:08; Start 09/03/16 at 20:00; Stop 09/03/16 at 20:59 ; Status DC Piperacillin Sod/ Tazobactam Sod 3.375 gm/Sodium Chloride 50 ml @ 100 mls/hr Q6HRS IV Last administered on 09/05/16 05:56; Start 09/03/16 at 20:00 Sodium Chloride 1,000 ml @ 1,000 mls/hr 1X ONCE IV Last administered on 19:00; Start 09/03/16 at 19:00; Stop 09/03/16 at 19:59; Status DC Sodium Chloride (Iv Sodium Chloride 0.9% 1000ml Bag) 1,000 ml @ 100 mls/hr Q10H IV Last administered on 09/05/16 02:13; Start 09/03/16 at 20:00; Stop 09/05 at 08:39; Status DC Pantoprazole Sodium 40 mg 40 mg DAILYAC IVP ; Start 09/04/16 at 07:30; Status Cancel Norepinephrine Bitartrate/Sodium Chloride (Levophed Vial/ Iv Sodium Chloride 0.9 % 250ml) 258 ml @ 0 mls/hr CONT PRN IV SEE I/O RECORD Last administered on 09/04 03:33; Start 09/04/16 at 03:30 Pantoprazole Sodium (Protonix Vial) 40 mg 1X ONCE IVP Last administered on 04:06; Start 09/04/16 at 04:00; Stop 09/04/16 at 04:01; Status DC Lidocaine/Sodium Bicarbonate 20 ml 20 ml STK-MED ONCE IJ ; Start 09/04/16 at 08: 40; Stop 09/04/16 at 08:41; Status DC Pantoprazole Sodium/Sodium Chloride (Protonix Iv/Iv Sodium Chloride 0.9% 100ml) 100 ml @ 10 mls/hr Q10H IV Last administered on 09/05/16 08:17; Start at 08:45 Lidocaine/Sodium Bicarbonate (Buffered Lidocaine 1%) 3 ml 1X ONCE IJ ; Start at 08:45; Stop 09/04/16 at 08:46; Status DC Heparin Sodium/ Sodium Chloride 60 unit 60 unit 1X ONCE IV ; Start 09/04/16 at 08:45; Stop 09/04/16 at 08:46; Status DC Pantoprazole Sodium 80 mg/ Sodium Chloride 100 ml @ 10 mls/hr Q10H IV ; Start 09/04/16 at 08:45; Status UNV Propofol (Diprivan) 40 ml @ As Directed STK-MED ONCE IV ; Start 09/04/16 at 10: 58; Stop 09/04/16 at 10:59; Status DC Lidocaine HCl (Lidocaine Pf 2% Vial) 5 ml STK-MED ONCE .ROUTE ; Start 09/04/16 at 10:58; Stop 09/04/16 at 10:59; Status DC Epinephrine HCl (Epinephrine Syringe) 1 mg STK-MED ONCE .ROUTE ; Start 09/04/16 at 12:02; Stop 09/04/16 at 12:03; Status DC Epinephrine HCl (Epinephrine Syringe) 1 mg STK-MED ONCE .ROUTE ; Start 09/04/16 at 12:05; Stop 09/04/16 at 12:06; Status DC Lidocaine/Sodium Bicarbonate 20 ml 20 ml STK-MED ONCE IJ ; Start 09/04/16 at 13: 12; Stop 09/04/16 at 13:13; Status DC Heparin Sodium/ Sodium Chloride 500 ml @ As Directed STK-MED ONCE .ROUTE ; Start 09/04/16 at 13:12; Stop 09/04/16 at 13:13; Status DC Epinephrine HCl (Adrenalin) 1 mg STK-MED ONCE SQ Last administered on 12:08; Start 09/04/16 at 12:08; Stop 09/04/16 at 14:25; Status DC Epinephrine HCl 1 mg 1 mg STK-MED ONCE SQ Last administered on 09/04/16 12:11 ; Start 09/04/16 at 12:11; Stop 09/04/16 at 14:25; Status DC Sodium Bicarbonate/ Sodium Chloride (Iv Sodium Chloride 0.45%) 1,050 ml @ 125 mls/hr Q8H24M IV Last administered on 09/05/16 09:06; Start 09/05/16 at 09:30 Active Scripts Active Hydrocodone-Apap 5-325 (Hydrocodone Bit/Acetaminophen) 1 Each Tablet 2 Tab PO PRN Q4HRS PRN Reported Duoneb 0.5-3(2.5) Mg/3 Ml (Albuterol/Ipratropium) 3 Ml Ampul.neb 3 Ml NEB QID PRN Xanax (Alprazolam) 0.5 Mg Tablet 1 Tab PO Q8HRS PRN Senna-Docusate Sodium Tablet (Sennosides/Docusate Sodium) 1 Each Tablet 1 Each PO DAILY Coumadin (Warfarin Sodium) 2.5 Mg Tablet 1 Tab PO DAILY managed by Dr. Ochoa Polyethylene Glycol 3350 255 Gm Powder 17 Gm PO DAILY PRN Proair Hfa (Albuterol Sulfate) 8.5 Gm Hfa.aer.ad Valsartan-Hctz 160-12.5 Mg Tab (Valsartan/Hydrochlorothiazide) 1 Each Tablet 1 Each PO DAILY Combivent Respimat Inhal (Ipratropium/Albuterol Sulfate) 4 Gm Aer.w.adap 2 Inh IH QID Albuterol Sulfate Hfa Inhaler (Albuterol Sulfate) 8.5 Gm Hfa.aer.ad 8.5 Gm IH PRN Vitals/I & O Vital Sign - Last 24 Hours 09/04/16 09/04/16 09/04/16 09/04/16 10:00 11:00 12:00 12:00 Temp 97.2 97.2 Pulse 132 140 114 Resp 20 20 20 B/P 88/50 112/74 102/94 Pulse Ox 100 100 100 O2 Delivery Nasal Cannula Nasal Cannula Nasal Cannula Nasal Cannula O2 Flow Rate 3.0 3.0 4.0 3.0 09/04/16 09/04/16 09/04/16 09/04/16 12:30 13:00 14:00 15:00 Pulse 116 120 118 122 Resp 20 20 20 20 B/P 116/54 135/65 148/79 116/71 Pulse Ox 96 100 100 100 O2 Delivery Venturi Mask Nasal Cannula Nasal Cannula Nasal Cannula O2 Flow Rate 10 3.0 3.0 3.0 09/04/16 09/04/16 09/04/16 09/04/16 16:00 16:00 17:00 17:47 Temp 98.1 98.1 Pulse 116 132 Resp 20 20 B/P 97/62 138/78 Pulse Ox 100 100 93 O2 Delivery Nasal Cannula Nasal Cannula Nasal Cannula BiPAP/CPAP O2 Flow Rate 4.0 3.0 3.0 09/04/16 09/04/16 09/04/16 09/04/16 18:00 19:00 19:31 20:00 Temp 97.9 97.9 Pulse 132 136 Resp 20 32 B/P 132/67 115/72 Pulse Ox 100 90 92 O2 Delivery Nasal Cannula BiPAP/CPAP BiPAP/CPAP Bi-pap O2 Flow Rate 3.0 09/04/16 09/04/16 09/04/16 09/04/16 20:00 21:00 21:45 22:00 Pulse 129 124 123 Resp 30 30 B/P 95/68 102/59 113/64 Pulse Ox 91 94 93 93 O2 Delivery BiPAP/CPAP BiPAP/CPAP BiPAP/CPAP BiPAP/CPAP 09/04/16 09/04/16 09/04/16 09/05/16 23:00 23:35 23:59 00:00 Temp 98.1 98.1 Pulse 116 119 Resp 30 18 B/P 101/63 111/71 Pulse Ox 94 92 98 O2 Delivery BiPAP/CPAP BiPAP/CPAP Bi-pap BiPAP/CPAP 09/05/16 09/05/16 09/05/16 09/05/16 01:18 02:00 02:50 03:11 Temp 98.1 98.1 Pulse 118 117 107 Resp 18 18 16 B/P 118/70 116/66 119/67 Pulse Ox 96 95 100 95 O2 Delivery BiPAP/CPAP BiPAP/CPAP BiPAP/CPAP BiPAP/CPAP 09/05/16 09/05/16 09/05/16 09/05/16 04:00 04:00 05:00 05:15 Temp 98.9 98.9 98.9 98.9 Pulse 114 114 Resp 18 18 B/P 136/70 136/70 Pulse Ox 97 98 97 O2 Delivery Bi-pap BiPAP/CPAP BiPAP/CPAP BiPAP/CPAP 09/05/16 09/05/16 09/05/16 09/05/16 06:00 07:00 08:05 09:18 Pulse 116 111 Resp 17 B/P 132/69 119/63 Pulse Ox 99 95 97 97 O2 Delivery BiPAP/CPAP BiPAP/CPAP BiPAP/CPAP BiPAP/CPAP Intake and Output 09/04/16 09/04/16 09/05/16 15:00 23:00 07:00 Intake Total 3248 ml Output Total 618 ml 225 ml Balance -618 ml 3023 ml Problem List Problems Medical Problems: (1) Anemia Status: Acute (2) Hypotension Status: Acute Assessment DU's with acute bleeding; appears free of "active" bleeding at this point. Plan of Care: Continue current Tx, Mgmt Plan of Care Note OK to have some ice chips; would not feed yet. If can go 48-72 hours w/o bleeding, should be out of the treadwell and could try diet then. Continue monitor hemoglobin. ISIAH DUNBAR MD Sep 05, 2016 09:35
--- NOTE | 2016-09-05 09:49 | PDOC ---
Infectious Disease Note Subjective Subjective C/o abdominal pain + diarrhea On BiPAP Hypotensive. On Levophed 5 mcg No fever ROS ROS Limited Vital Sign Vital Signs Vital Signs Date Time Temp Pulse Resp B/P Pulse Ox O2 Delivery O2 Flow Rate FiO2 09/05/16 09:18 97 BiPAP/CPAP 09/05/16 07:00 111 17 119/63 09/05/16 05:00 98.9 98.9 09/04/16 18:00 3.0 Physical Exam PHYSICAL EXAM GENERAL: On BiPAP HEENT: PERRL, OC/OP dry NECK: Supple LUNGS: Clear HEART: S1S2, no gallop, no murmur ABD: BS present, soft, tender to light palpation EXT: UE edema. No cyanosis. Left lateral hip incision well-approx. rosy, Some serous sanguinous drainage. 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 clean Labs Lab Laboratory Tests Test 09/04/16 13:25 09/04/16 17:00 09/04/16 17:11 09/05/16 00:01 White Blood Count 16.6x10^3/uL (4.0-11.0) 21.7x10^3/uL (4.0-11.0) 25.8x10^3/uL (4.0-11.0) Red Blood Count 4.55x10^6/uL (3.50-5.40) 4.69x10^6/uL (3.50-5.40) 4.37x10^6/uL (3.50-5.40) Hemoglobin 12.8g/dL (12.0-15.5) 13.2g/dL (12.0-15.5) 12.3g/dL (12.0-15.5) Hematocrit 40.0% (36.0-47.0) 41.2% (36.0-47.0) 38.6% (36.0-47.0) Mean Corpuscular Volume 88fL (79-100) 88fL (79-100) 89fL (79-100) Mean Corpuscular Hemoglobin 28pg (25-35) 28pg (25-35) 28pg (25-35) Mean Corpuscular Hemoglobin Concent 32g/dL (31-37) 32g/dL (31-37) 32g/dL (31-37) Red Cell Distribution Width 16.5% (11.5-14.5) 16.7% (11.5-14.5) 16.9% (11.5-14.5) Platelet Count 243x10^3/uL (140-400) 228x10^3/uL (140-400) 245x10^3/uL (140-400) O2 Saturation 95% (92-99) Arterial Blood pH 7.14 (7.35-7.45) Arterial Blood pCO2 at Patient Temp 58mmHg (35-46) Arterial Blood pO2 at Patient Temp 85mmHg (65-108) Arterial Blood HCO3 19mmol/L (21-28) Arterial Blood Base Excess -10mmol/L (-3-3) FiO2 32 Test 09/05/16 06:00 09/05/16 06:11 09/05/16 08:00 White Blood Count 26.1x10^3/uL (4.0-11.0) Red Blood Count 4.34x10^6/uL (3.50-5.40) Hemoglobin 12.3g/dL (12.0-15.5) Hematocrit 38.2% (36.0-47.0) Mean Corpuscular Volume 88fL (79-100) Mean Corpuscular Hemoglobin 28pg (25-35) Mean Corpuscular Hemoglobin Concent 32g/dL (31-37) Red Cell Distribution Width 17.2% (11.5-14.5) Platelet Count 246x10^3/uL (140-400) Sodium Level 151mmol/L (136-145) Potassium Level 3.8mmol/L (3.5-5.1) Chloride Level 118mmol/L (98-107) Carbon Dioxide Level 19mmol/L (21-32) Anion Gap 14 (6-14) Blood Urea Nitrogen 50mg/dL (7-20) Creatinine 1.0mg/dL (0.6-1.0) Estimated GFR (Cockcroft-Gault) 55.1 Glucose Level 121mg/dL (70-99) Calcium Level 7.9mg/dL (8.5-10.1) O2 Saturation 95% (92-99) Arterial Blood pH 7.22 (7.35-7.45) Arterial Blood pCO2 at Patient Temp 42mmHg (35-46) Arterial Blood pO2 at Patient Temp 79mmHg (65-108) Arterial Blood HCO3 17mmol/L (21-28) Arterial Blood Base Excess -11mmol/L (-3-3) FiO2 30 Micro BLOOD CULTURE Preliminary NO GROWTH AFTER 1 DAY Objective Assessment GI bleed/Erosive gastritis & duodenal ulcers. s/p cauterization, 09/04 Anemia. s/p PRBCs times 3 Lactic acidosis likely sec to GI bleed and hypoperfusion, infection possible, less likely Minor drainage at Left hip surgery site Respiratory insufficiency on BiPAP Encephalopathy -seems to be improving Hypotension on Levophed Leukocytosis, trending up I Plan Plan of Care cont Zosyn for now Monitor labs supportive care Reviewed Dr. Sue's note Attending Co-Sign Attending Co-Sign The patient was seen and interviewed as well as examined at the bedside. The chart was reviewed. The case was discussed. Agree with the plan of care. SALMA LEYVA APRN Sep 05, 2016 09:49 JUAN ANTONIO PERRIN MD Sep 05, 2016 11:32
[2016-09-05] MEDS ORDERED: MORPHINE SULFATE 2 MG/ML DISP.SYRIN. IV PRN (10:15)
--- NOTE | 2016-09-05 10:41 | PDOC2 ---
CONSULT Date of Consult Date of Consult DATE: 09/05/16 TIME: 10:35 Reason for Consult Reason for Consult: GI bleed with anemia Referring Physician Referring Physician: Genna Identification/Chief Complaint Chief Complaint Trouble breathing Source Source: Chart review, Patient History of Present Illness Reason for Visit: 70 yo female admitted to the hospital with anemia and tachycardia. Underwent EGD and found to have giant ulcer with visible vessel which was cauterized and sclerosed by Dr Vail. Patient on CPAP thus difficult for her to communicate. Past Medical History Cardiovascular: HTN Pulmonary: COPD Psych: Anxiety, Depression Past Surgical History Past Surgical History: Total hip replacement, Hysterectomy Family History Family History: No Significant Social History Quit ALCOHOL: none Drugs: None Current Problem List Problem List Problems Medical Problems: (1) Anemia Status: Acute (2) Hypotension Status: Acute Current Medications Current Medications Current Medications Sodium Chloride 1,000 ml @ 0 mls/hr 1X ONCE IV Last administered on 14:00; Start 09/03/16 at 14:00; Stop 09/03/16 at 14:01; Status DC Sodium Chloride 1,000 ml @ 0 mls/hr 1X ONCE IV Last administered on 16:13; Start 09/03/16 at 15:45; Stop 09/03/16 at 15:46; Status DC Vancomycin HCl 1 gm/Sodium Chloride 250 ml @ 250 mls/hr 1X ONCE IV Last administered on 09/03/16 20:08; Start 09/03/16 at 20:00; Stop 09/03/16 at 20:59 ; Status DC Piperacillin Sod/ Tazobactam Sod 3.375 gm/Sodium Chloride 50 ml @ 100 mls/hr Q6HRS IV Last administered on 09/05/16 05:56; Start 09/03/16 at 20:00 Sodium Chloride 1,000 ml @ 1,000 mls/hr 1X ONCE IV Last administered on 19:00; Start 09/03/16 at 19:00; Stop 09/03/16 at 19:59; Status DC Sodium Chloride (Iv Sodium Chloride 0.9% 1000ml Bag) 1,000 ml @ 100 mls/hr Q10H IV Last administered on 09/05/16 02:13; Start 09/03/16 at 20:00; Stop 09/05 at 08:39; Status DC Pantoprazole Sodium 40 mg 40 mg DAILYAC IVP ; Start 09/04/16 at 07:30; Status Cancel Norepinephrine Bitartrate/Sodium Chloride (Levophed Vial/ Iv Sodium Chloride 0.9 % 250ml) 258 ml @ 0 mls/hr CONT PRN IV SEE I/O RECORD Last administered on 09/04 03:33; Start 09/04/16 at 03:30 Pantoprazole Sodium (Protonix Vial) 40 mg 1X ONCE IVP Last administered on 04:06; Start 09/04/16 at 04:00; Stop 09/04/16 at 04:01; Status DC Lidocaine/Sodium Bicarbonate 20 ml 20 ml STK-MED ONCE IJ ; Start 09/04/16 at 08: 40; Stop 09/04/16 at 08:41; Status DC Pantoprazole Sodium/Sodium Chloride (Protonix Iv/Iv Sodium Chloride 0.9% 100ml) 100 ml @ 10 mls/hr Q10H IV Last administered on 09/05/16 08:17; Start at 08:45 Lidocaine/Sodium Bicarbonate (Buffered Lidocaine 1%) 3 ml 1X ONCE IJ ; Start at 08:45; Stop 09/04/16 at 08:46; Status DC Heparin Sodium/ Sodium Chloride 60 unit 60 unit 1X ONCE IV ; Start 09/04/16 at 08:45; Stop 09/04/16 at 08:46; Status DC Pantoprazole Sodium 80 mg/ Sodium Chloride 100 ml @ 10 mls/hr Q10H IV ; Start 09/04/16 at 08:45; Status UNV Propofol (Diprivan) 40 ml @ As Directed STK-MED ONCE IV ; Start 09/04/16 at 10: 58; Stop 09/04/16 at 10:59; Status DC Lidocaine HCl (Lidocaine Pf 2% Vial) 5 ml STK-MED ONCE .ROUTE ; Start 09/04/16 at 10:58; Stop 09/04/16 at 10:59; Status DC Epinephrine HCl (Epinephrine Syringe) 1 mg STK-MED ONCE .ROUTE ; Start 09/04/16 at 12:02; Stop 09/04/16 at 12:03; Status DC Epinephrine HCl (Epinephrine Syringe) 1 mg STK-MED ONCE .ROUTE ; Start 09/04/16 at 12:05; Stop 09/04/16 at 12:06; Status DC Lidocaine/Sodium Bicarbonate 20 ml 20 ml STK-MED ONCE IJ ; Start 09/04/16 at 13: 12; Stop 09/04/16 at 13:13; Status DC Heparin Sodium/ Sodium Chloride 500 ml @ As Directed STK-MED ONCE .ROUTE ; Start 09/04/16 at 13:12; Stop 09/04/16 at 13:13; Status DC Epinephrine HCl (Adrenalin) 1 mg STK-MED ONCE SQ Last administered on 12:08; Start 09/04/16 at 12:08; Stop 09/04/16 at 14:25; Status DC Epinephrine HCl 1 mg 1 mg STK-MED ONCE SQ Last administered on 09/04/16 12:11 ; Start 09/04/16 at 12:11; Stop 09/04/16 at 14:25; Status DC Sodium Bicarbonate/ Sodium Chloride (Iv Sodium Chloride 0.45%) 1,050 ml @ 125 mls/hr Q8H24M IV Last administered on 09/05/16 09:06; Start 09/05/16 at 09:30 Morphine Sulfate 1 mg PRN Q4HRS PRN IV PAIN; Start 09/05/16 at 10:15 Morphine Sulfate 2 mg PRN Q4HRS PRN IV PAIN; Start 09/05/16 at 10:15 Active Scripts Active Hydrocodone-Apap 5-325 (Hydrocodone Bit/Acetaminophen) 1 Each Tablet 2 Tab PO PRN Q4HRS PRN Reported Duoneb 0.5-3(2.5) Mg/3 Ml (Albuterol/Ipratropium) 3 Ml Ampul.neb 3 Ml NEB QID PRN Xanax (Alprazolam) 0.5 Mg Tablet 1 Tab PO Q8HRS PRN Senna-Docusate Sodium Tablet (Sennosides/Docusate Sodium) 1 Each Tablet 1 Each PO DAILY Coumadin (Warfarin Sodium) 2.5 Mg Tablet 1 Tab PO DAILY managed by Dr. Ochoa Polyethylene Glycol 3350 255 Gm Powder 17 Gm PO DAILY PRN Proair Hfa (Albuterol Sulfate) 8.5 Gm Hfa.aer.ad Valsartan-Hctz 160-12.5 Mg Tab (Valsartan/Hydrochlorothiazide) 1 Each Tablet 1 Each PO DAILY Combivent Respimat Inhal (Ipratropium/Albuterol Sulfate) 4 Gm Aer.w.adap 2 Inh IH QID Albuterol Sulfate Hfa Inhaler (Albuterol Sulfate) 8.5 Gm Hfa.aer.ad 8.5 Gm IH PRN Allergies Allergies: Coded Allergies: amlodipine (Verified Adverse Reaction, Intermediate, Swelling, 09/04/16) Physical Exam General: Alert, Cooperative, mild distress HEENT: Other (CPAP Mask in place) Heart: Regular rate Abdomen: Normal bowel sounds, Soft, No tenderness Extremities: Other (difusse edema) Skin: No significant lesion Vitals VITALS Vital Signs Date Time Temp Pulse Resp B/P Pulse Ox O2 Delivery O2 Flow Rate FiO2 09/05/16 10:00 133 20 118/75 93 BiPAP/CPAP 09/05/16 08:00 98.1 98.1 09/04/16 18:00 3.0 Labs Labs Laboratory Tests Test 09/03/16 13:50 09/03/16 14:00 09/03/16 15:00 09/03/16 16:55 White Blood Count 18.3x10^3/uL (4.0-11.0) Red Blood Count 2.41x10^6/uL (3.50-5.40) Hemoglobin 6.9g/dL (12.0-15.5) Hematocrit 22.3% (36.0-47.0) Mean Corpuscular Volume 92fL (79-100) Mean Corpuscular Hemoglobin 29pg (25-35) Mean Corpuscular Hemoglobin Concent 31g/dL (31-37) Red Cell Distribution Width 15.6% (11.5-14.5) Platelet Count 456x10^3/uL (140-400) Neutrophils (%) (Auto) 87% (31-73) Lymphocytes (%) (Auto) 5% (24-48) Monocytes (%) (Auto) 8% (0-9) Eosinophils (%) (Auto) 1% (0-3) Basophils (%) (Auto) 0% (0-3) Neutrophils # (Auto) 15.9x10^3uL (1.8-7.7) Lymphocytes # (Auto) 0.9x10^3/uL (1.0-4.8) Monocytes # (Auto) 1.4x10^3/uL (0.0-1.1) Eosinophils # (Auto) 0.1x10^3/uL (0.0-0.7) Basophils # (Auto) 0.0x10^3/uL (0.0-0.2) Segmented Neutrophils % 88% (35-66) Band Neutrophils % 3% (0-9) Lymphocytes % 5% (24-48) Monocytes % 2% (0-10) Eosinophils % 1% (0-5) Myelocytes % 1% (0-0) Platelet Estimate Increased (ADEQUATE) Hypochromasia Slight Anisocytosis Slight Macrocytosis Slight Prothrombin Time 13.1SEC (11.7-14.0) Prothromb Time International Ratio 1.1 (0.8-1.1) Sodium Level 142mmol/L (136-145) Potassium Level 4.3mmol/L (3.5-5.1) Chloride Level 104mmol/L (98-107) Carbon Dioxide Level 29mmol/L (21-32) Anion Gap 9 (6-14) Blood Urea Nitrogen 47mg/dL (7-20) Creatinine 1.1mg/dL (0.6-1.0) Estimated GFR (Cockcroft-Gault) 49.4 BUN/Creatinine Ratio 43 (6-20) Glucose Level 141mg/dL (70-99) Lactic Acid Level 2.6mmol/L (0.4-2.0) Calcium Level 7.9mg/dL (8.5-10.1) Total Bilirubin 0.3mg/dL (0.2-1.0) Aspartate Amino Transf (AST/SGOT) 28U/L (15-37) Alanine Aminotransferase (ALT/SGPT) 29U/L (14-59) Alkaline Phosphatase 123U/L (46-116) Troponin I Quantitative < 0.017ng/mL (0.000-0.055) Total Protein 4.9g/dL (6.4-8.2) Albumin 1.7g/dL (3.4-5.0) Albumin/Globulin Ratio 0.5 (1.0-1.7) Lipase 265U/L (73-393) Stool Occult Blood Negative (NEG) Positive (NEG) Urine Collection Type U cath Urine Color Yellow Urine Clarity Clear Urine pH 5.5 Urine Specific Castaner 1.015 Urine Protein Negativemg/dL (NEG-TRACE) Urine Glucose (UA) Negativemg/dL (NEG) Urine Ketones (Stick) Negativemg/dL (NEG) Urine Blood Negative (NEG) Urine Nitrite Negative (NEG) Urine Bilirubin Negative (NEG) Urine Urobilinogen Dipstick 0.2mg/dL (0.2 mg/dL) Urine Leukocyte Esterase Negative (NEG) Urine RBC 0/HPF (0-2) Urine WBC 0/HPF (0-4) Urine Renal Epithelial Cells Few/LPF Urine Bacteria 0/HPF (0-FEW) Urine Hyaline Casts Few/HPF Urine Mucus Mod/LPF Test 09/03/16 18:45 09/04/16 01:30 09/04/16 05:00 09/04/16 13:25 Nasal Screen MRSA (PCR) Negative (Negative) Stool Occult Blood Positive (NEG) White Blood Count 17.3x10^3/uL (4.0-11.0) 17.1x10^3/uL (4.0-11.0) 16.6x10^3/uL (4.0-11.0) Red Blood Count 2.76x10^6/uL (3.50-5.40) 2.76x10^6/uL (3.50-5.40) 4.55x10^6/uL (3.50-5.40) Hemoglobin 8.2g/dL (12.0-15.5) 8.2g/dL (12.0-15.5) 12.8g/dL (12.0-15.5) Hematocrit 25.5% (36.0-47.0) 25.5% (36.0-47.0) 40.0% (36.0-47.0) Mean Corpuscular Volume 92fL (79-100) 92fL (79-100) 88fL (79-100) Mean Corpuscular Hemoglobin 30pg (25-35) 30pg (25-35) 28pg (25-35) Mean Corpuscular Hemoglobin Concent 32g/dL (31-37) 32g/dL (31-37) 32g/dL (31-37) Red Cell Distribution Width 15.4% (11.5-14.5) 15.6% (11.5-14.5) 16.5% (11.5-14.5) Platelet Count 284x10^3/uL (140-400) 285x10^3/uL (140-400) 243x10^3/uL (140-400) Neutrophils (%) (Auto) 86% (31-73) Lymphocytes (%) (Auto) 8% (24-48) Monocytes (%) (Auto) 6% (0-9) Eosinophils (%) (Auto) 0% (0-3) Basophils (%) (Auto) 0% (0-3) Neutrophils # (Auto) 14.6x10^3uL (1.8-7.7) Lymphocytes # (Auto) 1.3x10^3/uL (1.0-4.8) Monocytes # (Auto) 1.0x10^3/uL (0.0-1.1) Eosinophils # (Auto) 0.0x10^3/uL (0.0-0.7) Basophils # (Auto) 0.1x10^3/uL (0.0-0.2) Sodium Level 147mmol/L (136-145) Potassium Level 4.7mmol/L (3.5-5.1) Chloride Level 115mmol/L (98-107) Carbon Dioxide Level 25mmol/L (21-32) Anion Gap 7 (6-14) Blood Urea Nitrogen 55mg/dL (7-20) Creatinine 0.7mg/dL (0.6-1.0) Estimated GFR (Cockcroft-Gault) 83.2 Glucose Level 111mg/dL (70-99) Calcium Level 7.0mg/dL (8.5-10.1) Test 09/04/16 17:00 09/04/16 17:11 09/05/16 00:01 09/05/16 06:00 White Blood Count 21.7x10^3/uL (4.0-11.0) 25.8x10^3/uL (4.0-11.0) 26.1x10^3/uL (4.0-11.0) Red Blood Count 4.69x10^6/uL (3.50-5.40) 4.37x10^6/uL (3.50-5.40) 4.34x10^6/uL (3.50-5.40) Hemoglobin 13.2g/dL (12.0-15.5) 12.3g/dL (12.0-15.5) 12.3g/dL (12.0-15.5) Hematocrit 41.2% (36.0-47.0) 38.6% (36.0-47.0) 38.2% (36.0-47.0) Mean Corpuscular Volume 88fL (79-100) 89fL (79-100) 88fL (79-100) Mean Corpuscular Hemoglobin 28pg (25-35) 28pg (25-35) 28pg (25-35) Mean Corpuscular Hemoglobin Concent 32g/dL (31-37) 32g/dL (31-37) 32g/dL (31-37) Red Cell Distribution Width 16.7% (11.5-14.5) 16.9% (11.5-14.5) 17.2% (11.5-14.5) Platelet Count 228x10^3/uL (140-400) 245x10^3/uL (140-400) 246x10^3/uL (140-400) O2 Saturation 95% (92-99) Arterial Blood pH 7.14 (7.35-7.45) Arterial Blood pCO2 at Patient Temp 58mmHg (35-46) Arterial Blood pO2 at Patient Temp 85mmHg (65-108) Arterial Blood HCO3 19mmol/L (21-28) Arterial Blood Base Excess -10mmol/L (-3-3) FiO2 32 Test 09/05/16 06:11 09/05/16 08:00 Sodium Level 151mmol/L (136-145) Potassium Level 3.8mmol/L (3.5-5.1) Chloride Level 118mmol/L (98-107) Carbon Dioxide Level 19mmol/L (21-32) Anion Gap 14 (6-14) Blood Urea Nitrogen 50mg/dL (7-20) Creatinine 1.0mg/dL (0.6-1.0) Estimated GFR (Cockcroft-Gault) 55.1 Glucose Level 121mg/dL (70-99) Calcium Level 7.9mg/dL (8.5-10.1) O2 Saturation 95% (92-99) Arterial Blood pH 7.22 (7.35-7.45) Arterial Blood pCO2 at Patient Temp 42mmHg (35-46) Arterial Blood pO2 at Patient Temp 79mmHg (65-108) Arterial Blood HCO3 17mmol/L (21-28) Arterial Blood Base Excess -11mmol/L (-3-3) FiO2 30 Laboratory Tests Test 09/04/16 13:25 09/04/16 17:00 09/04/16 17:11 09/05/16 00:01 White Blood Count 16.6x10^3/uL (4.0-11.0) 21.7x10^3/uL (4.0-11.0) 25.8x10^3/uL (4.0-11.0) Red Blood Count 4.55x10^6/uL (3.50-5.40) 4.69x10^6/uL (3.50-5.40) 4.37x10^6/uL (3.50-5.40) Hemoglobin 12.8g/dL (12.0-15.5) 13.2g/dL (12.0-15.5) 12.3g/dL (12.0-15.5) Hematocrit 40.0% (36.0-47.0) 41.2% (36.0-47.0) 38.6% (36.0-47.0) Mean Corpuscular Volume 88fL (79-100) 88fL (79-100) 89fL (79-100) Mean Corpuscular Hemoglobin 28pg (25-35) 28pg (25-35) 28pg (25-35) Mean Corpuscular Hemoglobin Concent 32g/dL (31-37) 32g/dL (31-37) 32g/dL (31-37) Red Cell Distribution Width 16.5% (11.5-14.5) 16.7% (11.5-14.5) 16.9% (11.5-14.5) Platelet Count 243x10^3/uL (140-400) 228x10^3/uL (140-400) 245x10^3/uL (140-400) O2 Saturation 95% (92-99) Arterial Blood pH 7.14 (7.35-7.45) Arterial Blood pCO2 at Patient Temp 58mmHg (35-46) Arterial Blood pO2 at Patient Temp 85mmHg (65-108) Arterial Blood HCO3 19mmol/L (21-28) Arterial Blood Base Excess -10mmol/L (-3-3) FiO2 32 Test 09/05/16 06:00 09/05/16 06:11 09/05/16 08:00 White Blood Count 26.1x10^3/uL (4.0-11.0) Red Blood Count 4.34x10^6/uL (3.50-5.40) Hemoglobin 12.3g/dL (12.0-15.5) Hematocrit 38.2% (36.0-47.0) Mean Corpuscular Volume 88fL (79-100) Mean Corpuscular Hemoglobin 28pg (25-35) Mean Corpuscular Hemoglobin Concent 32g/dL (31-37) Red Cell Distribution Width 17.2% (11.5-14.5) Platelet Count 246x10^3/uL (140-400) Sodium Level 151mmol/L (136-145) Potassium Level 3.8mmol/L (3.5-5.1) Chloride Level 118mmol/L (98-107) Carbon Dioxide Level 19mmol/L (21-32) Anion Gap 14 (6-14) Blood Urea Nitrogen 50mg/dL (7-20) Creatinine 1.0mg/dL (0.6-1.0) Estimated GFR (Cockcroft-Gault) 55.1 Glucose Level 121mg/dL (70-99) Calcium Level 7.9mg/dL (8.5-10.1) O2 Saturation 95% (92-99) Arterial Blood pH 7.22 (7.35-7.45) Arterial Blood pCO2 at Patient Temp 42mmHg (35-46) Arterial Blood pO2 at Patient Temp 79mmHg (65-108) Arterial Blood HCO3 17mmol/L (21-28) Arterial Blood Base Excess -11mmol/L (-3-3) FiO2 30 Assessment/Plan Assessment/Plan Upper GI bleed Gastric ulcer, appears to have responded to intervention with stable Hgb Will monitor. ELI DRUMMOND MD Sep 05, 2016 10:41
[2016-09-05] MEDS: MORPHINE SULFATE 2 MG/ML DISP.SYRIN. IV PRN ×2 (11:09→16:31)
[2016-09-05] MEDS ORDERED: PHENYLEPHRINE in 0.9% NACL PF 1 MG/10 ML DISP.SYRIN. IV ONE (12:00)
[2016-09-05 12:26] LABS: HEMATOCRIT 34.6 % (36.0-47.0); HEMOGLOBIN 11.1 g/dL (12.0-15.5); RED BLOOD COUNT 3.93 x10^6/uL (3.50-5.40); RED CELL DISTRIBUTION WIDTH 17.2 % (11.5-14.5); WHITE BLOOD COUNT 22.1 x10^3/uL (4.0-11.0)
--- NOTE | 2016-09-05 14:25 | PDOC2 ---
CONSULT Date of Consult Date of Consult DATE: 09/05/16 TIME: 14:19 Reason for Consult Reason for Consult: BETTY Referring Physician Referring Physician: Appl Identification/Chief Complaint Chief Complaint None avail. Abd Discomfort Problems: Source Source: Chart review History of Present Illness Reason for Visit: as dictated Past Medical History Cardiovascular: HTN Pulmonary: COPD Psych: Anxiety, Depression Past Surgical History Past Surgical History: Total hip replacement, Hysterectomy Family History Family History: No Significant Social History Quit ALCOHOL: none Drugs: None Current Problem List Problem List Problems Medical Problems: (1) Anemia Status: Acute (2) Hypotension Status: Acute Current Medications Current Medications Current Medications Sodium Chloride 1,000 ml @ 0 mls/hr 1X ONCE IV Last administered on 14:00; Start 09/03/16 at 14:00; Stop 09/03/16 at 14:01; Status DC Sodium Chloride 1,000 ml @ 0 mls/hr 1X ONCE IV Last administered on 16:13; Start 09/03/16 at 15:45; Stop 09/03/16 at 15:46; Status DC Vancomycin HCl 1 gm/Sodium Chloride 250 ml @ 250 mls/hr 1X ONCE IV Last administered on 09/03/16 20:08; Start 09/03/16 at 20:00; Stop 09/03/16 at 20:59 ; Status DC Piperacillin Sod/ Tazobactam Sod 3.375 gm/Sodium Chloride 50 ml @ 100 mls/hr Q6HRS IV Last administered on 09/05/16 12:00; Start 09/03/16 at 20:00 Sodium Chloride 1,000 ml @ 1,000 mls/hr 1X ONCE IV Last administered on 19:00; Start 09/03/16 at 19:00; Stop 09/03/16 at 19:59; Status DC Sodium Chloride (Iv Sodium Chloride 0.9% 1000ml Bag) 1,000 ml @ 100 mls/hr Q10H IV Last administered on 09/05/16 02:13; Start 09/03/16 at 20:00; Stop 09/05 at 08:39; Status DC Pantoprazole Sodium 40 mg 40 mg DAILYAC IVP ; Start 09/04/16 at 07:30; Status Cancel Norepinephrine Bitartrate/Sodium Chloride (Levophed Vial/ Iv Sodium Chloride 0.9 % 250ml) 258 ml @ 0 mls/hr CONT PRN IV SEE I/O RECORD Last administered on 09/04 03:33; Start 09/04/16 at 03:30 Pantoprazole Sodium (Protonix Vial) 40 mg 1X ONCE IVP Last administered on 04:06; Start 09/04/16 at 04:00; Stop 09/04/16 at 04:01; Status DC Lidocaine/Sodium Bicarbonate 20 ml 20 ml STK-MED ONCE IJ ; Start 09/04/16 at 08: 40; Stop 09/04/16 at 08:41; Status DC Pantoprazole Sodium/Sodium Chloride (Protonix Iv/Iv Sodium Chloride 0.9% 100ml) 100 ml @ 10 mls/hr Q10H IV Last administered on 09/05/16 08:17; Start at 08:45 Lidocaine/Sodium Bicarbonate (Buffered Lidocaine 1%) 3 ml 1X ONCE IJ ; Start at 08:45; Stop 09/04/16 at 08:46; Status DC Heparin Sodium/ Sodium Chloride 60 unit 60 unit 1X ONCE IV ; Start 09/04/16 at 08:45; Stop 09/04/16 at 08:46; Status DC Pantoprazole Sodium 80 mg/ Sodium Chloride 100 ml @ 10 mls/hr Q10H IV ; Start 09/04/16 at 08:45; Status UNV Propofol (Diprivan) 40 ml @ As Directed STK-MED ONCE IV ; Start 09/04/16 at 10: 58; Stop 09/04/16 at 10:59; Status DC Lidocaine HCl (Lidocaine Pf 2% Vial) 5 ml STK-MED ONCE .ROUTE ; Start 09/04/16 at 10:58; Stop 09/04/16 at 10:59; Status DC Epinephrine HCl (Epinephrine Syringe) 1 mg STK-MED ONCE .ROUTE ; Start 09/04/16 at 12:02; Stop 09/04/16 at 12:03; Status DC Epinephrine HCl (Epinephrine Syringe) 1 mg STK-MED ONCE .ROUTE ; Start 09/04/16 at 12:05; Stop 09/04/16 at 12:06; Status DC Lidocaine/Sodium Bicarbonate 20 ml 20 ml STK-MED ONCE IJ ; Start 09/04/16 at 13: 12; Stop 09/04/16 at 13:13; Status DC Heparin Sodium/ Sodium Chloride 500 ml @ As Directed STK-MED ONCE .ROUTE ; Start 09/04/16 at 13:12; Stop 09/04/16 at 13:13; Status DC Epinephrine HCl (Adrenalin) 1 mg STK-MED ONCE SQ Last administered on 12:08; Start 09/04/16 at 12:08; Stop 09/04/16 at 14:25; Status DC Epinephrine HCl 1 mg 1 mg STK-MED ONCE SQ Last administered on 09/04/16 12:11 ; Start 09/04/16 at 12:11; Stop 09/04/16 at 14:25; Status DC Sodium Bicarbonate/ Sodium Chloride (Iv Sodium Chloride 0.45%) 1,050 ml @ 125 mls/hr Q8H24M IV Last administered on 09/05/16 09:06; Start 09/05/16 at 09:30 Morphine Sulfate 1 mg PRN Q4HRS PRN IV PAIN; Start 09/05/16 at 10:15 Morphine Sulfate 2 mg PRN Q4HRS PRN IV PAIN Last administered on 09/05/16 11:09 ; Start 09/05/16 at 10:15 Active Scripts Active Hydrocodone-Apap 5-325 (Hydrocodone Bit/Acetaminophen) 1 Each Tablet 2 Tab PO PRN Q4HRS PRN Reported Duoneb 0.5-3(2.5) Mg/3 Ml (Albuterol/Ipratropium) 3 Ml Ampul.neb 3 Ml NEB QID PRN Xanax (Alprazolam) 0.5 Mg Tablet 1 Tab PO Q8HRS PRN Senna-Docusate Sodium Tablet (Sennosides/Docusate Sodium) 1 Each Tablet 1 Each PO DAILY Coumadin (Warfarin Sodium) 2.5 Mg Tablet 1 Tab PO DAILY managed by Dr. Ochoa Polyethylene Glycol 3350 255 Gm Powder 17 Gm PO DAILY PRN Proair Hfa (Albuterol Sulfate) 8.5 Gm Hfa.aer.ad Valsartan-Hctz 160-12.5 Mg Tab (Valsartan/Hydrochlorothiazide) 1 Each Tablet 1 Each PO DAILY Combivent Respimat Inhal (Ipratropium/Albuterol Sulfate) 4 Gm Aer.w.adap 2 Inh IH QID Albuterol Sulfate Hfa Inhaler (Albuterol Sulfate) 8.5 Gm Hfa.aer.ad 8.5 Gm IH PRN Allergies Allergies: Coded Allergies: amlodipine (Verified Adverse Reaction, Intermediate, Swelling, 09/04/16) ROS Review of System unable to obtain since pt is drowsy and on BiPAP Physical Exam Physical Exam GEN: arousable, Oriented x 1, In mod resp distress EYES: Sclera anicteric , Conjunctiva Normal EN: No EN Drainage, Mucous Membranes dry on BiPAP NECK: no JVD, no JVP, Supple, no Thyromegaly CVS: S1S2, no Murmur, No Gallop, No Rub,+ Edema x 4 RESP: no Rales, no Rhonchi,+ Acc. Muscle Use GI: BS + ve, NO Bruit, Non Tender, Non Distended : no CVA tenderness, no Suprapubic Tenderness Vital Signs Vital Signs Date Time Temp Pulse Resp B/P Pulse Ox O2 Delivery O2 Flow Rate FiO2 09/05/16 13:42 98 BiPAP/CPAP 09/05/16 13:00 128 100/64 09/05/16 12:00 98.3 22 98.3 09/04/16 18:00 3.0 Assessment & Plan NAGMA - IV Bicarb + DDAVP edema unclear etio; IV ALB and reaval. SUspect RHF ^Na - watch trend - DDAVP as ordered Low K and Low ALb - check Mag; K replacement prn Labs Labs Laboratory Tests Test 09/03/16 15:00 09/03/16 16:55 09/03/16 18:45 09/04/16 01:30 Urine Collection Type U cath Urine Color Yellow Urine Clarity Clear Urine pH 5.5 Urine Specific [place] 1.015 Urine Protein Negativemg/dL (NEG-TRACE) Urine Glucose (UA) Negativemg/dL (NEG) Urine Ketones (Stick) Negativemg/dL (NEG) Urine Blood Negative (NEG) Urine Nitrite Negative (NEG) Urine Bilirubin Negative (NEG) Urine Urobilinogen Dipstick 0.2mg/dL (0.2 mg/dL) Urine Leukocyte Esterase Negative (NEG) Urine RBC 0/HPF (0-2) Urine WBC 0/HPF (0-4) Urine Renal Epithelial Cells Few/LPF Urine Bacteria 0/HPF (0-FEW) Urine Hyaline Casts Few/HPF Urine Mucus Mod/LPF Stool Occult Blood Positive (NEG) Positive (NEG) Nasal Screen MRSA (PCR) Negative (Negative) White Blood Count 17.3x10^3/uL (4.0-11.0) Red Blood Count 2.76x10^6/uL (3.50-5.40) Hemoglobin 8.2g/dL (12.0-15.5) Hematocrit 25.5% (36.0-47.0) Mean Corpuscular Volume 92fL (79-100) Mean Corpuscular Hemoglobin 30pg (25-35) Mean Corpuscular Hemoglobin Concent 32g/dL (31-37) Red Cell Distribution Width 15.4% (11.5-14.5) Platelet Count 284x10^3/uL (140-400) Test 09/04/16 05:00 09/04/16 13:25 09/04/16 17:00 09/04/16 17:11 White Blood Count 17.1x10^3/uL (4.0-11.0) 16.6x10^3/uL (4.0-11.0) 21.7x10^3/uL (4.0-11.0) Red Blood Count 2.76x10^6/uL (3.50-5.40) 4.55x10^6/uL (3.50-5.40) 4.69x10^6/uL (3.50-5.40) Hemoglobin 8.2g/dL (12.0-15.5) 12.8g/dL (12.0-15.5) 13.2g/dL (12.0-15.5) Hematocrit 25.5% (36.0-47.0) 40.0% (36.0-47.0) 41.2% (36.0-47.0) Mean Corpuscular Volume 92fL (79-100) 88fL (79-100) 88fL (79-100) Mean Corpuscular Hemoglobin 30pg (25-35) 28pg (25-35) 28pg (25-35) Mean Corpuscular Hemoglobin Concent 32g/dL (31-37) 32g/dL (31-37) 32g/dL (31-37) Red Cell Distribution Width 15.6% (11.5-14.5) 16.5% (11.5-14.5) 16.7% (11.5-14.5) Platelet Count 285x10^3/uL (140-400) 243x10^3/uL (140-400) 228x10^3/uL (140-400) Neutrophils (%) (Auto) 86% (31-73) Lymphocytes (%) (Auto) 8% (24-48) Monocytes (%) (Auto) 6% (0-9) Eosinophils (%) (Auto) 0% (0-3) Basophils (%) (Auto) 0% (0-3) Neutrophils # (Auto) 14.6x10^3uL (1.8-7.7) Lymphocytes # (Auto) 1.3x10^3/uL (1.0-4.8) Monocytes # (Auto) 1.0x10^3/uL (0.0-1.1) Eosinophils # (Auto) 0.0x10^3/uL (0.0-0.7) Basophils # (Auto) 0.1x10^3/uL (0.0-0.2) Sodium Level 147mmol/L (136-145) Potassium Level 4.7mmol/L (3.5-5.1) Chloride Level 115mmol/L (98-107) Carbon Dioxide Level 25mmol/L (21-32) Anion Gap 7 (6-14) Blood Urea Nitrogen 55mg/dL (7-20) Creatinine 0.7mg/dL (0.6-1.0) Estimated GFR (Cockcroft-Gault) 83.2 Glucose Level 111mg/dL (70-99) Calcium Level 7.0mg/dL (8.5-10.1) O2 Saturation 95% (92-99) Arterial Blood pH 7.14 (7.35-7.45) Arterial Blood pCO2 at Patient Temp 58mmHg (35-46) Arterial Blood pO2 at Patient Temp 85mmHg (65-108) Arterial Blood HCO3 19mmol/L (21-28) Arterial Blood Base Excess -10mmol/L (-3-3) FiO2 32 Test 09/05/16 00:01 09/05/16 06:00 09/05/16 06:11 09/05/16 08:00 White Blood Count 25.8x10^3/uL (4.0-11.0) 26.1x10^3/uL (4.0-11.0) Red Blood Count 4.37x10^6/uL (3.50-5.40) 4.34x10^6/uL (3.50-5.40) Hemoglobin 12.3g/dL (12.0-15.5) 12.3g/dL (12.0-15.5) Hematocrit 38.6% (36.0-47.0) 38.2% (36.0-47.0) Mean Corpuscular Volume 89fL (79-100) 88fL (79-100) Mean Corpuscular Hemoglobin 28pg (25-35) 28pg (25-35) Mean Corpuscular Hemoglobin Concent 32g/dL (31-37) 32g/dL (31-37) Red Cell Distribution Width 16.9% (11.5-14.5) 17.2% (11.5-14.5) Platelet Count 245x10^3/uL (140-400) 246x10^3/uL (140-400) Sodium Level 151mmol/L (136-145) Potassium Level 3.8mmol/L (3.5-5.1) Chloride Level 118mmol/L (98-107) Carbon Dioxide Level 19mmol/L (21-32) Anion Gap 14 (6-14) Blood Urea Nitrogen 50mg/dL (7-20) Creatinine 1.0mg/dL (0.6-1.0) Estimated GFR (Cockcroft-Gault) 55.1 Glucose Level 121mg/dL (70-99) Calcium Level 7.9mg/dL (8.5-10.1) O2 Saturation 95% (92-99) Arterial Blood pH 7.22 (7.35-7.45) Arterial Blood pCO2 at Patient Temp 42mmHg (35-46) Arterial Blood pO2 at Patient Temp 79mmHg (65-108) Arterial Blood HCO3 17mmol/L (21-28) Arterial Blood Base Excess -11mmol/L (-3-3) FiO2 30 Test 09/05/16 12:20 White Blood Count 22.1x10^3/uL (4.0-11.0) Red Blood Count 3.93x10^6/uL (3.50-5.40) Hemoglobin 11.1g/dL (12.0-15.5) Hematocrit 34.6% (36.0-47.0) Mean Corpuscular Volume 88fL (79-100) Mean Corpuscular Hemoglobin 28pg (25-35) Mean Corpuscular Hemoglobin Concent 32g/dL (31-37) Red Cell Distribution Width 17.2% (11.5-14.5) Platelet Count 219x10^3/uL (140-400) Laboratory Tests Test 09/04/16 17:00 09/04/16 17:11 09/05/16 00:01 09/05/16 06:00 White Blood Count 21.7x10^3/uL (4.0-11.0) 25.8x10^3/uL (4.0-11.0) 26.1x10^3/uL (4.0-11.0) Red Blood Count 4.69x10^6/uL (3.50-5.40) 4.37x10^6/uL (3.50-5.40) 4.34x10^6/uL (3.50-5.40) Hemoglobin 13.2g/dL (12.0-15.5) 12.3g/dL (12.0-15.5) 12.3g/dL (12.0-15.5) Hematocrit 41.2% (36.0-47.0) 38.6% (36.0-47.0) 38.2% (36.0-47.0) Mean Corpuscular Volume 88fL (79-100) 89fL (79-100) 88fL (79-100) Mean Corpuscular Hemoglobin 28pg (25-35) 28pg (25-35) 28pg (25-35) Mean Corpuscular Hemoglobin Concent 32g/dL (31-37) 32g/dL (31-37) 32g/dL (31-37) Red Cell Distribution Width 16.7% (11.5-14.5) 16.9% (11.5-14.5) 17.2% (11.5-14.5) Platelet Count 228x10^3/uL (140-400) 245x10^3/uL (140-400) 246x10^3/uL (140-400) O2 Saturation 95% (92-99) Arterial Blood pH 7.14 (7.35-7.45) Arterial Blood pCO2 at Patient Temp 58mmHg (35-46) Arterial Blood pO2 at Patient Temp 85mmHg (65-108) Arterial Blood HCO3 19mmol/L (21-28) Arterial Blood Base Excess -10mmol/L (-3-3) FiO2 32 Test 09/05/16 06:11 09/05/16 08:00 09/05/16 12:20 Sodium Level 151mmol/L (136-145) Potassium Level 3.8mmol/L (3.5-5.1) Chloride Level 118mmol/L (98-107) Carbon Dioxide Level 19mmol/L (21-32) Anion Gap 14 (6-14) Blood Urea Nitrogen 50mg/dL (7-20) Creatinine 1.0mg/dL (0.6-1.0) Estimated GFR (Cockcroft-Gault) 55.1 Glucose Level 121mg/dL (70-99) Calcium Level 7.9mg/dL (8.5-10.1) O2 Saturation 95% (92-99) Arterial Blood pH 7.22 (7.35-7.45) Arterial Blood pCO2 at Patient Temp 42mmHg (35-46) Arterial Blood pO2 at Patient Temp 79mmHg (65-108) Arterial Blood HCO3 17mmol/L (21-28) Arterial Blood Base Excess -11mmol/L (-3-3) FiO2 30 White Blood Count 22.1x10^3/uL (4.0-11.0) Red Blood Count 3.93x10^6/uL (3.50-5.40) Hemoglobin 11.1g/dL (12.0-15.5) Hematocrit 34.6% (36.0-47.0) Mean Corpuscular Volume 88fL (79-100) Mean Corpuscular Hemoglobin 28pg (25-35) Mean Corpuscular Hemoglobin Concent 32g/dL (31-37) Red Cell Distribution Width 17.2% (11.5-14.5) Platelet Count 219x10^3/uL (140-400) Images Images IMPRESSION: No acute cardiopulmonary abnormality is detected with no significant change since yesterday's study. TARUN HUSTON MD Sep 05, 2016 14:25
[2016-09-05] MEDS ORDERED: POTASSIUM CHLORIDE 20MEQ 50 ML IV PRN ×2 (14:30)
[2016-09-05] MEDS ORDERED: MAGNESIUM SULFATE 2GM 50 ML IV PRN (14:30)
[2016-09-05] MEDS: ALBUMIN HUMAN 25% 100 ML IV SCH ×2 (14:53→20:47)
[2016-09-05] MEDS: DESMOPRESSIN 4 MCG/ML AMPUL. SQ SCH ×2 (15:06→20:51)
[2016-09-05 15:17] LABS: HCO3 ABG 19 mmol/L (21-28); PCO2 ABG 45 mmHg (35-46); PH ABG 7.24 (7.35-7.45); PO2 ABG 66 mmHg (65-108); SAT O2 ABG 92 % (92-99)
[2016-09-05 15:19] LABS: FIO2 ABG 40
[2016-09-05] MEDS: SODIUM BICARB ADULT 8.4% 50 MEQ/50 ML DISP.SYRIN. IV SCH (17:38)
[2016-09-05 19:05] LABS: HEMATOCRIT 28.4 % (36.0-47.0); HEMOGLOBIN 9.2 g/dL (12.0-15.5); RED BLOOD COUNT 3.21 x10^6/uL (3.50-5.40); RED CELL DISTRIBUTION WIDTH 17.4 % (11.5-14.5); WHITE BLOOD COUNT 14.9 x10^3/uL (4.0-11.0)
[2016-09-05] MEDS: NOREPINEPHRINE VIAL 8 MG in IV NORMAL SALINE 250ML 250 ML IV PRN (19:59)
[2016-09-05 22:04] LABS: HEMOGLOBIN 6.1 g/dL (12.0-15.5)
[2016-09-05] MEDS ORDERED: LIDOCAINE 1% / SOD BICARB 8.4% 20 ML VIAL. IJ ONE ×2 (22:27→23:30)
[2016-09-05] MEDS ORDERED: IOHEXOL 300 MG/ML 50 ML VIAL. ONE ×2 (22:27→23:58)
[2016-09-05] MEDS ORDERED: IOHEXOL 300 MG/ML 100ML VIAL. ONE (22:27)
[2016-09-05] MEDS ORDERED: IOHEXOL 300 MG/ML 100ML VIAL. IART ONE (23:30)
[2016-09-05] MEDS ORDERED: GELATIN SPONGE SIZE 12-7MM SPONGE. ONE (23:35)
--- NOTE | 2016-09-05 23:45 | CONS ---
DATE OF CONSULTATION: PRIMARY PHYSICIAN: Dr. Carmelo Choi REASON FOR CONSULTATION: Metabolic acidosis. HISTORY OF PRESENT ILLNESS: The patient is a 70-year-old female initially presented to the ER on the with hypotension. She was found to have a GI bleed. She underwent EGD and was eventually found to have erosive gastritis, multiple duodenal ulcers with visible vessel, which was cauterized. Her bicarbonate was 29 on presentation and is down to 19 today. Her sodium is up to 151, albumin is 1.7. She is edematous, is now on the BiPAP. ABGs this morning were 7., bicarbonate was 17. We were asked to see her for the same. PAST MEDICAL HISTORY: Besides as documented is also positive for: 1. Bilateral cataract surgery. 2. Forgetfulness1 3. Minimal coronary artery disease without need for intervention. 4. Appendectomy. 5. Hysterectomy. 6. Questionable history of renal disease. 7. Depression, anxiety. 8. Spinal stenosis. FAMILY HISTORY: Positive for angina and Alzheimer's. SOCIAL HISTORY: Unable to be obtained from the patient presumably a smoker in the past. Rest of the details, see electronic records. TARUN HUSTON MD DR: DARA/marni JOB#: [id number] / [id number]
[2016-09-05] MEDS ORDERED: MIDAZOLAM HCL/PF 2 MG/2 ML VIAL. ONE (23:51)
[2016-09-05] MEDS ORDERED: NALOXONE 0.4 MG/ML VIAL. ONE (23:54)
[2016-09-06] VITALS (45 sets, daily range): BP systolic 68–142; BP diastolic 33–87
[2016-09-06] MEDS ORDERED: IOHEXOL 300 MG/ML 50 ML VIAL. ONE (00:17)
[2016-09-06] MEDS ORDERED: FENTANYL PF 100 MCG/2 ML VIAL. ONE (00:23)
[2016-09-06] MEDS ORDERED: IOHEXOL 300 MG/ML 50 ML VIAL. IART ONE (00:30)
[2016-09-06] MEDS ORDERED: MIDAZOLAM HCL/PF 2 MG/2 ML VIAL. IV ONE (00:30)
[2016-09-06] MEDS ORDERED: NOREPINEPHRINE BITARTRATE 4 MG/4 ML VIAL. IV ONE (00:43)
[2016-09-06] MEDS: PANTOPRAZOLE SODIUM IV 80 MG in IV NORMAL SALINE 100ML 100 ML IV SCH ×2 (00:45→20:56)
[2016-09-06] MEDS ORDERED: DOPAMINE 400MG/250ML PREMIX 250 ML IV ONE ×2 (00:53→01:15)
[2016-09-06] MEDS ORDERED: DIPHENHYDRAMINE 50 MG/ML VIAL. ONE (01:02)
[2016-09-06] MEDS: NOREPINEPHRINE VIAL 8 MG in IV NORMAL SALINE 250ML 250 ML IV PRN (01:24)
[2016-09-06] MEDS ORDERED: FENTANYL PF 100 MCG/2 ML VIAL. IV ONE (01:30)
[2016-09-06] MEDS ORDERED: DIPHENHYDRAMINE 50 MG/ML VIAL. IVP ONE (01:30)
[2016-09-06] MEDS ORDERED: NOREPINEPHRINE VIAL 8 MG in IV NORMAL SALINE 250ML 250 ML IV ONE (01:30)
--- NOTE | 2016-09-06 01:38 | PDOC ---
Exam Air Intercept Controller Air Intercept Controller Jose Pre-Procedure Diagnosis Pre-Procedure Diagnosis Duodenal bleed Post-Procedure Diagnosis Post-Procedure Diagnosis duodenal bleed. now s/p embolization of GDA, dorsal pancreatic artery, inferior pancreatoduodenal arcade. Procedure Performed Procedure Performed Embolization of GDA, dorsal pancreatic artery, inferior pancreatoduodenal arcade. Initially, massive bleeding into duodenum from GDA, then dorsal pancreatic artery, then inferior pancreatoduodenal arcade. All 3 coiled and embolized. No further active bleeding seen Type of Anesthesia Type of Anesthesia local and moderate sedation Estimated Blood Loss EBL: 10ml Condition of Patient Condition of Patient unchanged Disposition Disposition back to ICU ELIE GONGORA Jr, MD Sep 06, 2016 01:38
--- NOTE | 2016-09-06 01:59 | RAD ---
Title: Celiac arteriogram with subselective arteriograms of gastroduodenal artery and dorsal pancreatic artery, embolization of GDA and dorsal pancreatic artery, superior mesenteric arteriogram with subselective arteriogram of inferior pancreaticoduodenal arcade, embolization of the inferior pancreaticoduodenal arcade 09/06/2016 0141 hours Indication: 70-year-old female with emergent life-threatening hemorrhage from reported duodenal ulcer. The bleeding was unable to be stopped by endoscopic therapy. Emergent embolization is requested. Anesthesia: Conscious sedation was obtained with Versed and fentanyl from 1200 hours to 0130 hours. Continuous cardiopulmonary monitoring was performed throughout the procedure by trained independent observer. Local anesthesia was obtained with 1% lidocaine. Sterile technique: The procedure was performed utilizing all elements of maximal sterile barrier technique which included: Cap, mask, sterile gown, large sterile drape, and antiseptic hand hygiene, site preparation for cutaneous antisepsis with 2% chlorhexidine or current approved guideline alternative. DAP: 651 Gycm^2 Technique/findings: After obtaining informed consent the patient [facility] intensive care unit and placed on table in a supine position. The right common femoral artery was percutaneous access utilizing a micropuncture technique with a 21-gauge needle and a 5 [place] vasculature sheath placed. A 5 [place] Sos Omni catheter was advanced into the abdominal aorta over a [employer] guidewire in the superior mesenteric artery initially catheterized. A selective superior mesenteric arteriogram initially demonstrated normal filling of the superior mesenteric artery trunk and jejunal branches. On the initial superior mesenteric arteriogram, no active contrast extravasation/hemorrhage in the region of the duodenum was seen. The catheter was retracted into the abdominal aorta and the celiac arteries likely catheterized. A celiac arteriogram was then performed. Initial celiac arteriogram demonstrates normal filling of the common hepatic, left gastric, splenic arteries. Initially, no active contrast extravasation or hemorrhage is seen. A 2.8 [place] microcatheter was advanced over an 014 Choletec Glidewire in a coaxial fashion into the celiac artery and the gastroduodenal artery slightly catheterized. A subselective gastroduodenal arteriogram was then performed. The initial gastroduodenal arteriogram demonstrated normal filling of the gastroduodenal artery without evidence of active contrast extravasation or hemorrhage. Given the known bleeding duodenal ulcer, it was decided to proceed with embolization of the gastroduodenal artery. The microcatheter was advanced to the proximal gastroepiploic artery and coil occlusion of the distal gastroduodenal artery was then performed with multiple 3 mm helical coils. In addition, 3 mm and 4 mm Berna coils were utilized. Progress arteriography demonstrated gross contrast extravasation/hemorrhage from the gastroduodenal artery into the duodenal lumen. Embolization of the gastroduodenal artery was continued with 500-700 um embospheres as well as a Gelfoam slurry. Coil occlusion of the mid and proximal gastroduodenal artery was then performed with additional 3 mm diameter Berna coils. Progress angiography demonstrated complete occlusion of the gastroduodenal artery and no further extravasation from the gastroduodenal artery. Therefore, the microcatheter was then removed and a repeat celiac arteriogram performed via the sauce on the catheter. The repeat celiac arteriogram demonstrates occlusion of the gastroduodenal artery however there is now active contrast extravasation/hemorrhage in the region of the duodenum arising from the dorsal pancreatic artery. The microcatheter was advanced over the 014 gold tip Glidewire into the dorsal pancreatic artery and subselective angiography of the dorsal pancreatic artery demonstrates gross extravasation into the duodenal lumen. Occlusion of the dorsal pancreatic artery was then performed with multiple 3 mm and 4 mm helical coils. In addition, embolization was augmented with a Gelfoam slurry. Progress arteriograms demonstrate complete occlusion of the dorsal pancreatic artery. The microcatheter was then removed and completion celiac arteriogram demonstrates continued normal filling of the common hepatic artery, left gastric artery, and splenic artery. No further contrast extravasation or hemorrhage is seen. More specifically, there is complete occlusion of the gastroduodenal artery and dorsal pancreatic artery. The Sos Omni catheter was then retracted into the abdominal aorta and the superior mesenteric artery reselected. Repeat superior mesenteric arteriogram demonstrates massive contrast extravasation/hemorrhage into the duodenal lumen arising from the inferior pancreaticoduodenal arcade. The microcatheter was advanced over the L1 formable tip Glidewire through the Sos Omni catheter. Utilizing multiple microwires including a 014 double angled wire and 018 Glidewire, the jejunal branch and eventually the inferior pancreaticoduodenal arcade was selectively catheterized. A subselective arteriogram of the inferior pancreaticoduodenal arcade was then performed. The subselective arteriogram demonstrates gross contrast extravasation/hemorrhage from the terminal branches of the inferior pancreaticoduodenal arcade. Embolization of the inferior pancreaticoduodenal arcade was performed with 2 4 mm helical coils and a Gelfoam slurry. Progress arteriography demonstrates complete occlusion of the vessel and no further contrast extravasation/hemorrhage. The microcatheter was then removed and completion angiography of the superior mesenteric artery demonstrates complete occlusion of the inferior pancreaticoduodenal arcade and no further active contrast extravasation or hemorrhage. The catheters and wires were then removed. As a right common femoral artery entry site appeared appropriate, the sheath was removed and the arch site closed with a Perclose device. Good hemostasis was obtained. The patient tolerated procedure well and after appropriate monitoring was sent to the intensive care unit in unchanged condition. Impression: Gross massive contrast extravasation/hemorrhage in the region of the duodenum arising from 3 separate branches. Bleeding was demonstrated from the gastroduodenal artery which was completely occluded with multiple 3 mm and 4 mm Berna and helical coils as well as 500-700 um embospheres and Gelfoam slurry. Active bleeding was also demonstrated arising from the dorsal pancreatic artery which was occluded with several 3 mm and a 4 mm helical coils as well as a Gelfoam slurry. Active bleeding was also demonstrated from the inferior pancreaticoduodenal arcade arising from the superior mesenteric artery. This vessel was completely occluded with 2 4-mm helical coils and a Gelfoam slurry. Following embolization, no further active contrast extravasation/hemorrhage is seen in the region of the duodenum.
[2016-09-06 02:51] LABS: HEMATOCRIT 25.8 % (36.0-47.0); HEMOGLOBIN 8.1 g/dL (12.0-15.5); RED BLOOD COUNT 3.01 x10^6/uL (3.50-5.40); WHITE BLOOD COUNT 18.4 x10^3/uL (4.0-11.0)
[2016-09-06 02:52] LABS: RED CELL DISTRIBUTION WIDTH 16.2 % (11.5-14.5)
[2016-09-06 03:18] LABS: INR 2.1 (0.8-1.1); PROTHROMBIN TIME PATIENT 22.7 SEC (11.7-14.0)
[2016-09-06] MEDS ORDERED: LIDOCAINE 2% 100 MG/5 ML SYRINGE. ONE (03:32)
[2016-09-06] MEDS ORDERED: PHYTONADIONE (VIT K1) 10 MG in IV NORMAL SALINE 50ML 50 ML IV ONE (04:30)
[2016-09-06] MEDS: SODIUM BICARB ADULT 8.4% 50 MEQ/50 ML DISP.SYRIN. IV SCH ×4 (05:03→17:45)
--- NOTE | 2016-09-06 06:23 | PDOC ---
SUBJECTIVE ROS DARYL/ Met ACidosis pt developed Hypotension and Recc of GI bleeding, requiring Coiling Remains on BiPAP; Needs pressors pending IV Access OBJECTIVE Vital Signs Vital Signs Date Time Temp Pulse Resp B/P Pulse Ox O2 Delivery O2 Flow Rate FiO2 09/06/16 06:11 96.8 145 30 113/65 96.8 09/06/16 05:00 99 BiPAP/CPAP I & 0 Intake and Output 09/06/16 07:00 Intake Total 1176 ml Output Total 663 ml Balance 513 ml Intake Oral 0 ml IV Total 1176 ml Output Urine Total 663 ml # Bowel Movements 9 PHYSICAL EXAM Physical Exam GEN: arousable, Oriented x 1, In mod resp distress while on BiPAP EYES: Sclera anicteric , Conjunctiva Normal EN: No EN Drainage, Mucous Membranes dry on BiPAP NECK: no JVD, no JVP, Supple, no Thyromegaly CVS: S1S2, no Murmur, No Gallop, No Rub,+ Edema x 4 RESP: no Rales, no Rhonchi,+ Acc. Muscle Use GI: BS + ve, NO Bruit, Non Tender, Non Distended : no CVA tenderness, no Suprapubic Tenderness Assessment & Plan NAGMA - IV Bicarb + DDAVP - suspect due to Diarrhea and GI Bleed ? DARYL - due to prolonged Hypotension. IVF Bolus prn since UO is marginal HypoTension - Pressors as needed edema unclear etio; IV ALB and reaval. SUspect RHF ^Na - watch trend - DDAVP as ordered Low K and Low ALb - check Mag; K replacement prn Labs from this am are pending due to lack of PICC Line. PICC to be palced COMMENT/RELEVANT DATA Meds Current Medications Medications (Trade) Dose Ordered Sig/Chrissie Start Time Stop Time Status Last Admin Dose Admin Albumin Human 100 ml @ 100 mls/hr TID 09/05/16 15:00 09/07/16 09:59 09/05/16 20:47 100 MLS/HR Desmopressin Acetate (Ddavp) 1 mcg BID 09/05/16 15:00 09/06/16 21:01 09/05/16 20:51 1 MCG Diphenhydramine HCl (Benadryl) 50 mg STK-MED ONCE 09/06/16 01:02 09/06/16 01:03 DC Diphenhydramine HCl 25 mg 25 mg 1X ONCE 09/06/16 01:30 09/06/16 01:31 DC 09/06/16 01:25 25 MG Dopamine HCl/ Dextrose 250 ml @ 9.952 mls/ hr 1X ONCE 09/06/16 01:15 09/07/16 02:22 09/06/16 01:22 9.952 MLS/HR Epinephrine HCl (Adrenalin) 1 mg STK-MED ONCE 09/04/16 12:08 09/04/16 14:25 DC 09/04/16 12:08 0.2 MG Epinephrine HCl (Epinephrine Syringe) 1 mg STK-MED ONCE 09/04/16 12:05 09/04/16 12:06 DC Epinephrine HCl 1 mg 1 mg STK-MED ONCE 09/04/16 12:11 09/04/16 14:25 DC 09/04/16 12:11 0.4 MG Fentanyl Citrate (Fentanyl 2ml Vial) 25 mcg 1X ONCE 09/06/16 01:30 09/06/16 01:31 DC 09/06/16 01:22 25 MCG Gelatin (Gelfoam Size 12-7mm) 1 each STK-MED ONCE 09/05/16 23:35 09/05/16 23:36 DC Heparin Sodium/ Sodium Chloride 1,000 unit 1X ONCE 09/05/16 23:30 09/05/16 23:31 DC 09/05/16 23:46 1,000 UNIT Heparin Sodium/ Sodium Chloride 60 unit 60 unit 1X ONCE 09/04/16 08:45 09/04/16 08:46 DC Iohexol (Omnipaque 300 Mg/ml) 150 ml 1X ONCE 09/06/16 00:30 09/06/16 00:31 DC 09/06/16 01:08 150 ML Lidocaine HCl (Lidocaine Pf 2% Vial) 5 ml STK-MED ONCE 09/04/16 10:58 09/04/16 10:59 DC Lidocaine HCl 100 mg 100 mg STK-MED ONCE 09/06/16 03:32 09/06/16 03:33 DC Lidocaine/Sodium Bicarbonate (Buffered Lidocaine 1%) 20 ml 1X ONCE 09/05/16 23:30 09/05/16 23:31 DC 09/05/16 23:46 20 ML Lidocaine/Sodium Bicarbonate 20 ml 20 ml STK-MED ONCE 09/04/16 08:40 09/04/16 08:41 DC Magnesium Sulfate/ Dextrose 50 ml @ 25 mls/hr PRN DAILY PRN 09/05/16 14:30 Midazolam HCl (Versed) 2 mg 1X ONCE 09/06/16 00:30 09/06/16 00:31 DC 09/06/16 01:08 2 MG Morphine Sulfate 2 mg PRN Q4HRS PRN 09/05/16 10:15 09/05/16 16:31 2 MG Naloxone HCl (Narcan) 0.4 mg STK-MED ONCE 09/05/16 23:54 09/05/16 23:55 DC Norepinephrine Bitartrate (Levophed Vial) 4 mg STK-MED ONCE 09/06/16 00:43 09/06/16 00:44 DC Norepinephrine Bitartrate 8 mg/ Sodium Chloride 258 ml @ 0 mls/hr 1X ONCE 09/06/16 01:30 09/06/16 01:31 DC 09/06/16 01:26 58.05 MLS/HR Norepinephrine Bitartrate/Sodium Chloride (Levophed Vial/ Iv Sodium Chloride 0.9% 250ml) 258 ml @ 0 mls/hr CONT PRN 09/04/16 03:30 09/06/16 01:24 58.05 MLS/HR Pantoprazole Sodium (Protonix Vial) 40 mg 1X ONCE 09/04/16 04:00 09/04/16 04:01 DC 09/04/16 04:06 40 MG Pantoprazole Sodium 40 mg 40 mg DAILYAC 09/04/16 07:30 Cancel Pantoprazole Sodium 80 mg/ Sodium Chloride 100 ml @ 10 mls/hr Q10H 09/04/16 08:45 UNV Pantoprazole Sodium/Sodium Chloride (Protonix Iv/Iv Sodium Chloride 0.9% 100ml) 100 ml @ 10 mls/hr Q10H 09/04/16 08:45 09/05/16 19:58 10 MLS/HR Phytonadione/ Sodium Chloride (Vitamin K/Iv Sodium Chloride 0.9% 50ml) 51 ml @ 102 mls/hr 1X ONCE 09/06/16 04:30 09/06/16 04:59 DC Piperacillin Sod/ Tazobactam Sod 3.375 gm/Sodium Chloride 50 ml @ 100 mls/hr Q6HRS 09/03/16 20:00 09/05/16 17:38 100 MLS/HR Potassium Chloride (KCl Premix 20meq) 50 ml @ 50 mls/hr PRN Q2HR PRN 09/05/16 14:30 Propofol (Diprivan) 40 ml @ As Directed STK-MED ONCE 09/04/16 10:58 09/04/16 10:59 DC Sodium Bicarbonate 50 meq 50 meq Q6HRS 09/05/16 18:00 09/06/16 05:03 50 MEQ Sodium Bicarbonate/ Sodium Chloride (Iv Sodium Chloride 0.45%) 1,050 ml @ 125 mls/hr Q8H24M 09/05/16 09:30 09/05/16 14:28 DC 09/05/16 09:06 125 MLS/HR Sodium Chloride (Iv Sodium Chloride 0.9% 1000ml Bag) 1,000 ml @ 100 mls/hr Q10H 09/03/16 20:00 09/05/16 08:39 DC 09/05/16 02:13 100 MLS/HR Vancomycin HCl 1 gm/Sodium Chloride 250 ml @ 250 mls/hr 1X ONCE 09/03/16 20:00 09/03/16 20:59 DC 09/03/16 20:08 250 MLS/HR Lab Laboratory Tests Test 09/05/16 08:00 09/05/16 12:20 09/05/16 15:15 09/05/16 18:45 O2 Saturation 95% (92-99) 92% (92-99) Arterial Blood pH 7.22 (7.35-7.45) 7.24 (7.35-7.45) Arterial Blood pCO2 at Patient Temp 42mmHg (35-46) 45mmHg (35-46) Arterial Blood pO2 at Patient Temp 79mmHg (65-108) 66mmHg (65-108) Arterial Blood HCO3 17mmol/L (21-28) 19mmol/L (21-28) Arterial Blood Base Excess -11mmol/L (-3-3) -9mmol/L (-3-3) FiO2 30 40 White Blood Count 22.1x10^3/uL (4.0-11.0) 14.9x10^3/uL (4.0-11.0) Red Blood Count 3.93x10^6/uL (3.50-5.40) 3.21x10^6/uL (3.50-5.40) Hemoglobin 11.1g/dL (12.0-15.5) 9.2g/dL (12.0-15.5) Hematocrit 34.6% (36.0-47.0) 28.4% (36.0-47.0) Mean Corpuscular Volume 88fL (79-100) 88fL (79-100) Mean Corpuscular Hemoglobin 28pg (25-35) 29pg (25-35) Mean Corpuscular Hemoglobin Concent 32g/dL (31-37) 32g/dL (31-37) Red Cell Distribution Width 17.2% (11.5-14.5) 17.4% (11.5-14.5) Platelet Count 219x10^3/uL (140-400) 181x10^3/uL (140-400) Potassium Level 3.4mmol/L (3.5-5.1) Test 09/05/16 21:50 09/06/16 02:30 Hemoglobin 6.1g/dL (12.0-15.5) 8.1g/dL (12.0-15.5) Hematocrit 19.0% (36.0-47.0) 25.8% (36.0-47.0) White Blood Count 18.4x10^3/uL (4.0-11.0) Red Blood Count 3.01x10^6/uL (3.50-5.40) Mean Corpuscular Volume 86fL (79-100) Mean Corpuscular Hemoglobin 27pg (25-35) Mean Corpuscular Hemoglobin Concent 32g/dL (31-37) Red Cell Distribution Width 16.2% (11.5-14.5) Platelet Count 104x10^3/uL (140-400) Prothrombin Time 22.7SEC (11.7-14.0) Prothromb Time International Ratio 2.1 (0.8-1.1) TARUN HUSTON MD Sep 06, 2016 06:22
[2016-09-06] MEDS ORDERED: IV NORMAL SALINE 500ML BAG 500 ML IV PRN (06:30)
[2016-09-06] MEDS ORDERED: MAGNESIUM SULFATE 2GM 50 ML IV PRN (06:30)
[2016-09-06] MEDS: ALBUMIN HUMAN 25% 100 ML IV SCH ×3 (08:27→23:20)
[2016-09-06] MEDS ORDERED: PHENYLEPHRINE INJ 20 MG in IV NORMAL SALINE 250ML 250 ML IV PRN (08:30)
[2016-09-06 08:34] LABS: HCO3 ABG 18 mmol/L (21-28); PCO2 ABG 49 mmHg (35-46); PO2 ABG 140 mmHg (65-108); SAT O2 ABG 98 % (92-99)
[2016-09-06 08:38] LABS: FIO2 ABG 40; PH ABG 7.19 (7.35-7.45)
--- NOTE | 2016-09-06 08:38 | PDOC ---
G I PROGRESS NOTE Subjective Appears not too uncomfortable; doesn't really attempt to communicate. Objective Events of last evening reviewed. Staff report no evident active bleeding. IV issues; to get PICC. Physical Exam Lungs clear anteriorly. RRR Abdomen soft, apparently non-tender. Review of Relevant I have reviewed the following items pako (where applicable) has been applied. Labs Laboratory Tests Test 09/04/16 13:25 09/04/16 17:00 09/04/16 17:11 09/05/16 00:01 White Blood Count 16.6x10^3/uL (4.0-11.0) 21.7x10^3/uL (4.0-11.0) 25.8x10^3/uL (4.0-11.0) Red Blood Count 4.55x10^6/uL (3.50-5.40) 4.69x10^6/uL (3.50-5.40) 4.37x10^6/uL (3.50-5.40) Hemoglobin 12.8g/dL (12.0-15.5) 13.2g/dL (12.0-15.5) 12.3g/dL (12.0-15.5) Hematocrit 40.0% (36.0-47.0) 41.2% (36.0-47.0) 38.6% (36.0-47.0) Mean Corpuscular Volume 88fL (79-100) 88fL (79-100) 89fL (79-100) Mean Corpuscular Hemoglobin 28pg (25-35) 28pg (25-35) 28pg (25-35) Mean Corpuscular Hemoglobin Concent 32g/dL (31-37) 32g/dL (31-37) 32g/dL (31-37) Red Cell Distribution Width 16.5% (11.5-14.5) 16.7% (11.5-14.5) 16.9% (11.5-14.5) Platelet Count 243x10^3/uL (140-400) 228x10^3/uL (140-400) 245x10^3/uL (140-400) O2 Saturation 95% (92-99) Arterial Blood pH 7.14 (7.35-7.45) Arterial Blood pCO2 at Patient Temp 58mmHg (35-46) Arterial Blood pO2 at Patient Temp 85mmHg (65-108) Arterial Blood HCO3 19mmol/L (21-28) Arterial Blood Base Excess -10mmol/L (-3-3) FiO2 32 Test 09/05/16 06:00 09/05/16 06:11 09/05/16 08:00 09/05/16 12:20 White Blood Count 26.1x10^3/uL (4.0-11.0) 22.1x10^3/uL (4.0-11.0) Red Blood Count 4.34x10^6/uL (3.50-5.40) 3.93x10^6/uL (3.50-5.40) Hemoglobin 12.3g/dL (12.0-15.5) 11.1g/dL (12.0-15.5) Hematocrit 38.2% (36.0-47.0) 34.6% (36.0-47.0) Mean Corpuscular Volume 88fL (79-100) 88fL (79-100) Mean Corpuscular Hemoglobin 28pg (25-35) 28pg (25-35) Mean Corpuscular Hemoglobin Concent 32g/dL (31-37) 32g/dL (31-37) Red Cell Distribution Width 17.2% (11.5-14.5) 17.2% (11.5-14.5) Platelet Count 246x10^3/uL (140-400) 219x10^3/uL (140-400) Sodium Level 151mmol/L (136-145) Potassium Level 3.8mmol/L (3.5-5.1) Chloride Level 118mmol/L (98-107) Carbon Dioxide Level 19mmol/L (21-32) Anion Gap 14 (6-14) Blood Urea Nitrogen 50mg/dL (7-20) Creatinine 1.0mg/dL (0.6-1.0) Estimated GFR (Cockcroft-Gault) 55.1 Glucose Level 121mg/dL (70-99) Calcium Level 7.9mg/dL (8.5-10.1) O2 Saturation 95% (92-99) Arterial Blood pH 7.22 (7.35-7.45) Arterial Blood pCO2 at Patient Temp 42mmHg (35-46) Arterial Blood pO2 at Patient Temp 79mmHg (65-108) Arterial Blood HCO3 17mmol/L (21-28) Arterial Blood Base Excess -11mmol/L (-3-3) FiO2 30 Test 09/05/16 15:15 09/05/16 18:45 09/05/16 21:50 09/06/16 02:30 O2 Saturation 92% (92-99) Arterial Blood pH 7.24 (7.35-7.45) Arterial Blood pCO2 at Patient Temp 45mmHg (35-46) Arterial Blood pO2 at Patient Temp 66mmHg (65-108) Arterial Blood HCO3 19mmol/L (21-28) Arterial Blood Base Excess -9mmol/L (-3-3) FiO2 40 White Blood Count 14.9x10^3/uL (4.0-11.0) 18.4x10^3/uL (4.0-11.0) Red Blood Count 3.21x10^6/uL (3.50-5.40) 3.01x10^6/uL (3.50-5.40) Hemoglobin 9.2g/dL (12.0-15.5) 6.1g/dL (12.0-15.5) 8.1g/dL (12.0-15.5) Hematocrit 28.4% (36.0-47.0) 19.0% (36.0-47.0) 25.8% (36.0-47.0) Mean Corpuscular Volume 88fL (79-100) 86fL (79-100) Mean Corpuscular Hemoglobin 29pg (25-35) 27pg (25-35) Mean Corpuscular Hemoglobin Concent 32g/dL (31-37) 32g/dL (31-37) Red Cell Distribution Width 17.4% (11.5-14.5) 16.2% (11.5-14.5) Platelet Count 181x10^3/uL (140-400) 104x10^3/uL (140-400) Potassium Level 3.4mmol/L (3.5-5.1) Prothrombin Time 22.7SEC (11.7-14.0) Prothromb Time International Ratio 2.1 (0.8-1.1) Laboratory Tests Test 09/05/16 12:20 09/05/16 15:15 09/05/16 18:45 09/05/16 21:50 White Blood Count 22.1x10^3/uL (4.0-11.0) 14.9x10^3/uL (4.0-11.0) Red Blood Count 3.93x10^6/uL (3.50-5.40) 3.21x10^6/uL (3.50-5.40) Hemoglobin 11.1g/dL (12.0-15.5) 9.2g/dL (12.0-15.5) 6.1g/dL (12.0-15.5) Hematocrit 34.6% (36.0-47.0) 28.4% (36.0-47.0) 19.0% (36.0-47.0) Mean Corpuscular Volume 88fL (79-100) 88fL (79-100) Mean Corpuscular Hemoglobin 28pg (25-35) 29pg (25-35) Mean Corpuscular Hemoglobin Concent 32g/dL (31-37) 32g/dL (31-37) Red Cell Distribution Width 17.2% (11.5-14.5) 17.4% (11.5-14.5) Platelet Count 219x10^3/uL (140-400) 181x10^3/uL (140-400) O2 Saturation 92% (92-99) Arterial Blood pH 7.24 (7.35-7.45) Arterial Blood pCO2 at Patient Temp 45mmHg (35-46) Arterial Blood pO2 at Patient Temp 66mmHg (65-108) Arterial Blood HCO3 19mmol/L (21-28) Arterial Blood Base Excess -9mmol/L (-3-3) FiO2 40 Potassium Level 3.4mmol/L (3.5-5.1) Test 09/06/16 02:30 White Blood Count 18.4x10^3/uL (4.0-11.0) Red Blood Count 3.01x10^6/uL (3.50-5.40) Hemoglobin 8.1g/dL (12.0-15.5) Hematocrit 25.8% (36.0-47.0) Mean Corpuscular Volume 86fL (79-100) Mean Corpuscular Hemoglobin 27pg (25-35) Mean Corpuscular Hemoglobin Concent 32g/dL (31-37) Red Cell Distribution Width 16.2% (11.5-14.5) Platelet Count 104x10^3/uL (140-400) Prothrombin Time 22.7SEC (11.7-14.0) Prothromb Time International Ratio 2.1 (0.8-1.1) Microbiology 09/03/16 Blood Culture - Preliminary, Resulted NO GROWTH AFTER 2 DAYS Today's lab pending due to difficult stick, though low platelets and INR drifting up (dilutional). Medications Current Medications Sodium Chloride 1,000 ml @ 0 mls/hr 1X ONCE IV Last administered on 14:00; Start 09/03/16 at 14:00; Stop 09/03/16 at 14:01; Status DC Sodium Chloride 1,000 ml @ 0 mls/hr 1X ONCE IV Last administered on 16:13; Start 09/03/16 at 15:45; Stop 09/03/16 at 15:46; Status DC Vancomycin HCl 1 gm/Sodium Chloride 250 ml @ 250 mls/hr 1X ONCE IV Last administered on 09/03/16 20:08; Start 09/03/16 at 20:00; Stop 09/03/16 at 20:59 ; Status DC Piperacillin Sod/ Tazobactam Sod 3.375 gm/Sodium Chloride 50 ml @ 100 mls/hr Q6HRS IV Last administered on 09/05/16 17:38; Start 09/03/16 at 20:00 Sodium Chloride 1,000 ml @ 1,000 mls/hr 1X ONCE IV Last administered on 19:00; Start 09/03/16 at 19:00; Stop 09/03/16 at 19:59; Status DC Sodium Chloride (Iv Sodium Chloride 0.9% 1000ml Bag) 1,000 ml @ 100 mls/hr Q10H IV Last administered on 09/05/16 02:13; Start 09/03/16 at 20:00; Stop 09/05 at 08:39; Status DC Pantoprazole Sodium 40 mg 40 mg DAILYAC IVP ; Start 09/04/16 at 07:30; Status Cancel Norepinephrine Bitartrate/Sodium Chloride (Levophed Vial/ Iv Sodium Chloride 0.9 % 250ml) 258 ml @ 0 mls/hr CONT PRN IV SEE I/O RECORD Last administered on 01:24; Start 09/04/16 at 03:30 Pantoprazole Sodium (Protonix Vial) 40 mg 1X ONCE IVP Last administered on 04:06; Start 09/04/16 at 04:00; Stop 09/04/16 at 04:01; Status DC Lidocaine/Sodium Bicarbonate 20 ml 20 ml STK-MED ONCE IJ ; Start 09/04/16 at 08: 40; Stop 09/04/16 at 08:41; Status DC Pantoprazole Sodium/Sodium Chloride (Protonix Iv/Iv Sodium Chloride 0.9% 100ml) 100 ml @ 10 mls/hr Q10H IV Last administered on 09/05/16 19:58; Start at 08:45 Lidocaine/Sodium Bicarbonate (Buffered Lidocaine 1%) 3 ml 1X ONCE IJ ; Start at 08:45; Stop 09/04/16 at 08:46; Status DC Heparin Sodium/ Sodium Chloride 60 unit 60 unit 1X ONCE IV ; Start 09/04/16 at 08:45; Stop 09/04/16 at 08:46; Status DC Pantoprazole Sodium 80 mg/ Sodium Chloride 100 ml @ 10 mls/hr Q10H IV ; Start 09/04/16 at 08:45; Status UNV Propofol (Diprivan) 40 ml @ As Directed STK-MED ONCE IV ; Start 09/04/16 at 10: 58; Stop 09/04/16 at 10:59; Status DC Lidocaine HCl (Lidocaine Pf 2% Vial) 5 ml STK-MED ONCE .ROUTE ; Start 09/04/16 at 10:58; Stop 09/04/16 at 10:59; Status DC Epinephrine HCl (Epinephrine Syringe) 1 mg STK-MED ONCE .ROUTE ; Start 09/04/16 at 12:02; Stop 09/04/16 at 12:03; Status DC Epinephrine HCl (Epinephrine Syringe) 1 mg STK-MED ONCE .ROUTE ; Start 09/04/16 at 12:05; Stop 09/04/16 at 12:06; Status DC Lidocaine/Sodium Bicarbonate 20 ml 20 ml STK-MED ONCE IJ ; Start 09/04/16 at 13: 12; Stop 09/04/16 at 13:13; Status DC Heparin Sodium/ Sodium Chloride 500 ml @ As Directed STK-MED ONCE .ROUTE ; Start 09/04/16 at 13:12; Stop 09/04/16 at 13:13; Status DC Epinephrine HCl (Adrenalin) 1 mg STK-MED ONCE SQ Last administered on 12:08; Start 09/04/16 at 12:08; Stop 09/04/16 at 14:25; Status DC Epinephrine HCl 1 mg 1 mg STK-MED ONCE SQ Last administered on 09/04/16 12:11 ; Start 09/04/16 at 12:11; Stop 09/04/16 at 14:25; Status DC Sodium Bicarbonate/ Sodium Chloride (Iv Sodium Chloride 0.45%) 1,050 ml @ 125 mls/hr Q8H24M IV Last administered on 09/05/16 09:06; Start 09/05/16 at 09:30; Stop 09/05/16 at 14:28; Status DC Morphine Sulfate 1 mg PRN Q4HRS PRN IV PAIN; Start 09/05/16 at 10:15 Morphine Sulfate 2 mg PRN Q4HRS PRN IV PAIN Last administered on 09/05/16 16:31 ; Start 09/05/16 at 10:15 Desmopressin Acetate (Ddavp) 1 mcg BID SQ Last administered on 09/05/16 20:51; Start 09/05/16 at 15:00; Stop 09/06/16 at 21:01 Sodium Bicarbonate 50 meq 50 meq Q6HRS IV Last administered on 09/06/16 08:27; Start 09/05/16 at 18:00 Albumin Human 100 ml @ 100 mls/hr TID IV Last administered on 09/06/16 08:27; Start 09/05/16 at 15:00; Stop 09/07/16 at 09:59 Magnesium Sulfate/ Dextrose 50 ml @ 25 mls/hr PRN DAILY PRN IV for Mag < 1.7 on am labs; Start 09/05/16 at 14:30; Stop 09/06/16 at 06:18; Status DC Potassium Chloride 50 ml @ 50 mls/hr PRN Q6HRS PRN IV For K < 3.7; Start at 14:30 Potassium Chloride (KCl Premix 20meq) 50 ml @ 50 mls/hr PRN Q2HR PRN IV total of 40mEq for K < 3.5; Start 09/05/16 at 14:30 Iohexol (Omnipaque 300 Mg/ml) 50 ml STK-MED ONCE .ROUTE ; Start 09/05/16 at 22:27 ; Stop 09/05/16 at 22:28; Status DC Iohexol (Omnipaque 300 Mg/ml) 100 ml STK-MED ONCE .ROUTE ; Start 09/05/16 at 22: 27; Stop 09/05/16 at 22:28; Status DC Lidocaine/Sodium Bicarbonate 20 ml 20 ml STK-MED ONCE IJ ; Start 09/05/16 at 22: 27; Stop 09/05/16 at 22:28; Status DC Heparin Sodium/ Sodium Chloride 1,000 ml @ As Directed STK-MED ONCE .ROUTE ; Start 09/05/16 at 22:27; Stop 09/05/16 at 22:28; Status DC Heparin Sodium/ Sodium Chloride 1,000 unit 1X ONCE IART Last administered on 23:46; Start 09/05/16 at 23:30; Stop 09/05/16 at 23:31; Status DC Lidocaine/Sodium Bicarbonate (Buffered Lidocaine 1%) 20 ml 1X ONCE IJ Last administered on 09/05/16 23:46; Start 09/05/16 at 23:30; Stop 09/05/16 at 23:31; Status DC Iohexol (Omnipaque 300 Mg/ml) 100 ml 1X ONCE IART Last administered on 01:07; Start 09/05/16 at 23:30; Stop 09/05/16 at 23:31; Status DC Gelatin (Gelfoam Size 12-7mm) 1 each STK-MED ONCE .ROUTE ; Start 09/05/16 at 23: 35; Stop 09/05/16 at 23:36; Status DC Midazolam HCl (Versed) 2 mg STK-MED ONCE .ROUTE ; Start 09/05/16 at 23:51; Stop 09/05/16 at 23:52; Status DC Naloxone HCl (Narcan) 0.4 mg STK-MED ONCE .ROUTE ; Start 09/05/16 at 23:54; Stop 09/05/16 at 23:55; Status DC Iohexol (Omnipaque 300 Mg/ml) 50 ml STK-MED ONCE .ROUTE ; Start 09/05/16 at 23:58 ; Stop 09/05/16 at 23:59; Status DC Iohexol (Omnipaque 300 Mg/ml) 50 ml STK-MED ONCE .ROUTE ; Start 09/06/16 at 00:17 ; Stop 09/06/16 at 00:18; Status DC Midazolam HCl (Versed) 2 mg 1X ONCE IV Last administered on 09/06/16 01:08; Start 09/06/16 at 00:30; Stop 09/06/16 at 00:31; Status DC Iohexol (Omnipaque 300 Mg/ml) 150 ml 1X ONCE IART Last administered on 01:08; Start 09/06/16 at 00:30; Stop 09/06/16 at 00:31; Status DC Fentanyl Citrate (Fentanyl 2ml Vial) 100 mcg STK-MED ONCE .ROUTE ; Start at 00:23; Stop 09/06/16 at 00:24; Status DC Norepinephrine Bitartrate 4 mg 4 mg STK-MED ONCE IV ; Start 09/06/16 at 00:43; Stop 09/06/16 at 00:44; Status DC Dopamine HCl/ Dextrose 250 ml @ As Directed STK-MED ONCE IV ; Start 09/06/16 at 00:53; Stop 09/06/16 at 00:55; Status DC Diphenhydramine HCl (Benadryl) 50 mg STK-MED ONCE .ROUTE ; Start 09/06/16 at 01: 02; Stop 09/06/16 at 01:03; Status DC Fentanyl Citrate (Fentanyl 2ml Vial) 25 mcg 1X ONCE IV Last administered on 01:22; Start 09/06/16 at 01:30; Stop 09/06/16 at 01:31; Status DC Diphenhydramine HCl 25 mg 25 mg 1X ONCE IVP Last administered on 09/06/16 01: 25; Start 09/06/16 at 01:30; Stop 09/06/16 at 01:31; Status DC Norepinephrine Bitartrate 8 mg/ Sodium Chloride 258 ml @ 0 mls/hr 1X ONCE IV Last administered on 09/06/16 01:26; Start 09/06/16 at 01:30; Stop 09/06/16 at 01: 31; Status DC Dopamine HCl/ Dextrose 250 ml @ 9.952 mls/ hr 1X ONCE IV Last administered on 09/06/16 01:22; Start 09/06/16 at 01:15; Stop 09/07/16 at 02:22 Lidocaine HCl 100 mg 100 mg STK-MED ONCE .ROUTE ; Start 09/06/16 at 03:32; Stop 09/06/16 at 03:33; Status DC Phytonadione 10 mg/Sodium Chloride 51 ml @ 102 mls/hr 1X ONCE IV ; Start at 04:30; Stop 09/06/16 at 04:59; Status DC Magnesium Sulfate/ Dextrose 50 ml @ 25 mls/hr PRN DAILY PRN IV for Mag < 1.7 on am labs; Start 09/06/16 at 06:30 Sodium Chloride 500 ml @ 500 mls/hr PRN QID PRN IV UO< 30cc/hr over previous 6hrs; Start 09/06/16 at 06:30 Phenylephrine HCl/ Sodium Chloride (Miky-Synephrine Inj/Iv Sodium Chloride 0.9% 250ml) 252 ml @ 0 mls/hr CONT PRN IV SEE I/O RECORD; Start 09/06/16 at 08:30 Active Scripts Active Hydrocodone-Apap 5-325 (Hydrocodone Bit/Acetaminophen) 1 Each Tablet 2 Tab PO PRN Q4HRS PRN Reported Duoneb 0.5-3(2.5) Mg/3 Ml (Albuterol/Ipratropium) 3 Ml Ampul.neb 3 Ml NEB QID PRN Xanax (Alprazolam) 0.5 Mg Tablet 1 Tab PO Q8HRS PRN Senna-Docusate Sodium Tablet (Sennosides/Docusate Sodium) 1 Each Tablet 1 Each PO DAILY Coumadin (Warfarin Sodium) 2.5 Mg Tablet 1 Tab PO DAILY managed by Dr. Ochoa Polyethylene Glycol 3350 255 Gm Powder 17 Gm PO DAILY PRN Proair Hfa (Albuterol Sulfate) 8.5 Gm Hfa.aer.ad Valsartan-Hctz 160-12.5 Mg Tab (Valsartan/Hydrochlorothiazide) 1 Each Tablet 1 Each PO DAILY Combivent Respimat Inhal (Ipratropium/Albuterol Sulfate) 4 Gm Aer.w.adap 2 Inh IH QID Albuterol Sulfate Hfa Inhaler (Albuterol Sulfate) 8.5 Gm Hfa.aer.ad 8.5 Gm IH PRN Vitals/I & O Vital Sign - Last 24 Hours 09/05/16 09/05/16 09/05/16 09/05/16 09:00 09:18 10:00 11:00 Pulse 118 133 126 Resp 18 20 26 B/P 112/64 118/75 98/67 Pulse Ox 97 97 93 94 O2 Delivery BiPAP/CPAP BiPAP/CPAP BiPAP/CPAP BiPAP/CPAP 09/05/16 09/05/16 09/05/16 09/05/16 11:09 11:33 11:39 12:00 Resp 26 26 Pulse Ox 97 O2 Delivery BiPAP/CPAP Bi-pap 09/05/16 09/05/16 09/05/16 09/05/16 12:00 13:00 13:42 14:00 Temp 98.3 98.3 Pulse 131 128 127 Resp 22 20 B/P 101/65 100/64 105/64 Pulse Ox 96 96 98 96 O2 Delivery BiPAP/CPAP BiPAP/CPAP BiPAP/CPAP BiPAP/CPAP 09/05/16 09/05/16 09/05/16 09/05/16 15:00 15:10 16:00 16:00 Temp 98.2 98.2 Pulse 128 120 Resp 21 B/P 112/81 94/65 Pulse Ox 94 100 96 O2 Delivery BiPAP/CPAP BiPAP/CPAP BiPAP/CPAP Bi-pap 09/05/16 09/05/16 09/05/16 09/05/16 16:31 16:54 17:00 18:00 Pulse 111 108 Resp 21 22 21 B/P 111/61 96/54 Pulse Ox 100 97 97 O2 Delivery BiPAP/CPAP BiPAP/CPAP BiPAP/CPAP BiPAP/CPAP 09/05/16 09/05/16 09/05/16 09/05/16 19:00 19:56 20:00 20:00 Temp 98.3 98.3 Pulse 127 122 Resp 20 30 B/P 83/55 52/37 Pulse Ox 95 94 97 O2 Delivery BiPAP/CPAP BiPAP/CPAP Bi-pap BiPAP/CPAP 09/05/16 09/05/16 09/05/16 09/05/16 21:00 21:51 22:00 22:46 Temp 98.3 98.3 Pulse 130 136 151 Resp 30 30 24 B/P 49/39 82/58 116/59 Pulse Ox 97 95 93 O2 Delivery BiPAP/CPAP BiPAP/CPAP BiPAP/CPAP 09/05/16 09/05/16 09/05/16 09/05/16 23:00 23:06 23:21 23:36 Temp 97.8 97.8 Pulse 136 122 133 138 Resp 22 22 24 B/P 100/58 100/58 118/61 81/59 Pulse Ox 93 O2 Delivery BiPAP/CPAP 09/05/16 09/06/16 09/06/16 09/06/16 23:51 00:00 00:51 01:00 Pulse 127 126 126 122 Resp 22 24 B/P 93/60 102/58 70/54 83/55 Pulse Ox 100 100 O2 Delivery BiPAP/CPAP BiPAP/CPAP 09/06/16 09/06/16 09/06/16 09/06/16 01:22 01:38 01:56 02:00 Temp 97.7 97.6 97.7 97.6 Pulse 122 138 Resp 24 24 31 B/P 81/46 69/33 Pulse Ox 97 96 100 O2 Delivery BiPAP/CPAP BiPAP/CPAP BiPAP/CPAP 09/06/16 09/06/16 09/06/16 09/06/16 02:02 02:53 03:00 03:18 Temp 97.6 97.0 97.6 97.6 97.0 97.6 Pulse 138 144 144 145 Resp 24 28 32 26 B/P 78/56 84/56 100/57 68/58 Pulse Ox 100 O2 Delivery BiPAP/CPAP 09/06/16 09/06/16 09/06/16 09/06/16 04:00 04:00 04:10 04:55 Temp 97.6 97.6 Pulse 141 141 Resp 30 31 B/P 97.6 Pulse Ox 96 O2 Delivery Bi-pap BiPAP/CPAP BiPAP/CPAP 09/06/16 09/06/16 09/06/16 09/06/16 05:00 06:00 06:11 07:00 Temp 96.8 97.8 96.8 97.8 Pulse 145 145 145 146 Resp 30 24 30 22 B/P 102/72 105/58 113/65 107/73 Pulse Ox 99 99 O2 Delivery BiPAP/CPAP BiPAP/CPAP 09/06/16 08:00 Temp 97.9 97.9 Pulse 134 Resp 22 B/P 126/71 Intake and Output 09/05/16 09/05/16 09/06/16 14:59 22:59 06:59 Intake Total 1056 ml 120 ml 0 ml Output Total 264 ml 114 ml 300 ml Balance 792 ml 6 ml -300 ml Images At angiography: mpression: Gross massive contrast extravasation/hemorrhage in the region of the duodenum arising from 3 separate branches. Bleeding was demonstrated from the gastroduodenal artery which was completely occluded with multiple 3 mm and 4 mm Berna and helical coils as well as 500-700 um embospheres and Gelfoam slurry. Active bleeding was also demonstrated arising from the dorsal pancreatic artery which was occluded with several 3 mm and a 4 mm helical coils as well as a Gelfoam slurry. Active bleeding was also demonstrated from the inferior pancreaticoduodenal arcade arising from the superior mesenteric artery. This vessel was completely occluded with 2 4-mm helical coils and a Gelfoam slurry. Following embolization, no further active contrast extravasation/hemorrhage is seen in the region of the duodenum. Problem List Problems Medical Problems: (1) Anemia Status: Acute (2) Hypotension Status: Acute Assessment Giant DU with re-bleed, s/p apparently successful embolization. Many thanks to Dr. Garcia. Plan of Care: Continue current Tx, Mgmt Plan of Care Note Giving platelets, FFP and Vit. K. Continue PPI; BID ivp until PICC, then back to infusion. Follow clinically, labs. Nothing more than ice chips po. ISIAH DUNBAR MD Sep 06, 2016 08:38
--- NOTE | 2016-09-06 08:45 | PDOC ---
Infectious Disease Note Subjective Subjective s/p PRBCs and emergent arteriogram-embolization w/ coiling FFPs On BiPAP Hypotensive. Levophed 7 mcg, increase No fever ROS ROS limited Vital Sign Vital Signs Vital Signs Date Time Temp Pulse Resp B/P Pulse Ox O2 Delivery O2 Flow Rate FiO2 09/06/16 08:00 97.9 134 22 126/71 97.9 09/06/16 06:00 99 BiPAP/CPAP Physical Exam PHYSICAL EXAM GENERAL: On BiPAP HEENT: PERRL, OC/OP dry NECK: Supple LUNGS: Clear HEART: S1S2, no gallop, no murmur ABD: BS present, soft, tender to light palpation EXT: UE edema. Left lateral hip incision well-approx. rosy, Some serous sanguinous drainage. No redness SOCIAL SERVICES AIDE: Sleepy, SKIN: No rash. some mottling BLE, warm LLE OI. clean Labs Lab Laboratory Tests Test 09/05/16 12:20 09/05/16 15:15 09/05/16 18:45 09/05/16 21:50 White Blood Count 22.1x10^3/uL (4.0-11.0) 14.9x10^3/uL (4.0-11.0) Red Blood Count 3.93x10^6/uL (3.50-5.40) 3.21x10^6/uL (3.50-5.40) Hemoglobin 11.1g/dL (12.0-15.5) 9.2g/dL (12.0-15.5) 6.1g/dL (12.0-15.5) Hematocrit 34.6% (36.0-47.0) 28.4% (36.0-47.0) 19.0% (36.0-47.0) Mean Corpuscular Volume 88fL (79-100) 88fL (79-100) Mean Corpuscular Hemoglobin 28pg (25-35) 29pg (25-35) Mean Corpuscular Hemoglobin Concent 32g/dL (31-37) 32g/dL (31-37) Red Cell Distribution Width 17.2% (11.5-14.5) 17.4% (11.5-14.5) Platelet Count 219x10^3/uL (140-400) 181x10^3/uL (140-400) O2 Saturation 92% (92-99) Arterial Blood pH 7.24 (7.35-7.45) Arterial Blood pCO2 at Patient Temp 45mmHg (35-46) Arterial Blood pO2 at Patient Temp 66mmHg (65-108) Arterial Blood HCO3 19mmol/L (21-28) Arterial Blood Base Excess -9mmol/L (-3-3) FiO2 40 Potassium Level 3.4mmol/L (3.5-5.1) Test 09/06/16 02:30 White Blood Count 18.4x10^3/uL (4.0-11.0) Red Blood Count 3.01x10^6/uL (3.50-5.40) Hemoglobin 8.1g/dL (12.0-15.5) Hematocrit 25.8% (36.0-47.0) Mean Corpuscular Volume 86fL (79-100) Mean Corpuscular Hemoglobin 27pg (25-35) Mean Corpuscular Hemoglobin Concent 32g/dL (31-37) Red Cell Distribution Width 16.2% (11.5-14.5) Platelet Count 104x10^3/uL (140-400) Prothrombin Time 22.7SEC (11.7-14.0) Prothromb Time International Ratio 2.1 (0.8-1.1) Angiogram Impression: Gross massive contrast extravasation/hemorrhage in the region of the duodenum arising from 3 separate branches. Bleeding was demonstrated from the gastroduodenal artery which was completely occluded with multiple 3 mm and 4 mm Berna and helical coils as well as 500-700 um embospheres and Gelfoam slurry. Active bleeding was also demonstrated arising from the dorsal pancreatic artery which was occluded with several 3 mm and a 4 mm helical coils as well as a Gelfoam slurry. Active bleeding was also demonstrated from the inferior pancreaticoduodenal arcade arising from the superior mesenteric artery. This vessel was completely occluded with 2 4-mm helical coils and a Gelfoam slurry. Following embolization, no further active contrast extravasation/hemorrhage is seen in the region of the duodenum. Micro BLOOD CULTURE Preliminary NO GROWTH AFTER 2 DAY Objective Assessment GI bleed/Erosive gastritis & duodenal ulcers. s/p cauterization, 09/04. s/p embolization w/ coiling 09/05 Anemia. s/p PRBCs Lactic acidosis likely sec to GI bleed and hypoperfusion, infection possible, less likely Minor drainage at Left hip surgery site Respiratory insufficiency on BiPAP Encephalopathy Hypotension on Levophed Leukocytosis, trending up I Plan Plan of Care cont Zosyn for now CBC in am supportive care SALMA LEYVA SKIRT CLIPPER Sep 06, 2016 08:45
[2016-09-06] MEDS: DESMOPRESSIN 4 MCG/ML AMPUL. SQ SCH (09:00)
[2016-09-06 09:13] LABS: MAGNESIUM 1.8 mg/dL (1.8-2.4); POTASSIUM 3.6 mmol/L (3.5-5.1)
--- NOTE | 2016-09-06 09:21 | PDOC ---
SURGICAL PROGRESS NOTE Subjective Confused and aggitiated. On CPAP Vital Signs Vital Signs Date Time Temp Pulse Resp B/P Pulse Ox O2 Delivery O2 Flow Rate FiO2 09/06/16 08:40 98.2 122 32 115/70 98.2 09/06/16 08:20 96 BiPAP/CPAP I&O Intake and Output 09/06/16 07:00 Intake Total 1176 ml Output Total 663 ml Balance 513 ml Intake Oral 0 ml IV Total 1176 ml Output Urine Total 663 ml # Bowel Movements 9 PATIENT HAS A OLIVIER: Yes General: moderate distress HEENT: Other (CPAP on) Abdomen: Normal bowel sounds, Soft, Other (Mildly TTP LUQ) Labs Laboratory Tests Test 09/04/16 13:25 09/04/16 17:00 09/04/16 17:11 09/05/16 00:01 White Blood Count 16.6x10^3/uL (4.0-11.0) 21.7x10^3/uL (4.0-11.0) 25.8x10^3/uL (4.0-11.0) Red Blood Count 4.55x10^6/uL (3.50-5.40) 4.69x10^6/uL (3.50-5.40) 4.37x10^6/uL (3.50-5.40) Hemoglobin 12.8g/dL (12.0-15.5) 13.2g/dL (12.0-15.5) 12.3g/dL (12.0-15.5) Hematocrit 40.0% (36.0-47.0) 41.2% (36.0-47.0) 38.6% (36.0-47.0) Mean Corpuscular Volume 88fL (79-100) 88fL (79-100) 89fL (79-100) Mean Corpuscular Hemoglobin 28pg (25-35) 28pg (25-35) 28pg (25-35) Mean Corpuscular Hemoglobin Concent 32g/dL (31-37) 32g/dL (31-37) 32g/dL (31-37) Red Cell Distribution Width 16.5% (11.5-14.5) 16.7% (11.5-14.5) 16.9% (11.5-14.5) Platelet Count 243x10^3/uL (140-400) 228x10^3/uL (140-400) 245x10^3/uL (140-400) O2 Saturation 95% (92-99) Arterial Blood pH 7.14 (7.35-7.45) Arterial Blood pCO2 at Patient Temp 58mmHg (35-46) Arterial Blood pO2 at Patient Temp 85mmHg (65-108) Arterial Blood HCO3 19mmol/L (21-28) Arterial Blood Base Excess -10mmol/L (-3-3) FiO2 32 Test 09/05/16 06:00 09/05/16 06:11 09/05/16 08:00 09/05/16 12:20 White Blood Count 26.1x10^3/uL (4.0-11.0) 22.1x10^3/uL (4.0-11.0) Red Blood Count 4.34x10^6/uL (3.50-5.40) 3.93x10^6/uL (3.50-5.40) Hemoglobin 12.3g/dL (12.0-15.5) 11.1g/dL (12.0-15.5) Hematocrit 38.2% (36.0-47.0) 34.6% (36.0-47.0) Mean Corpuscular Volume 88fL (79-100) 88fL (79-100) Mean Corpuscular Hemoglobin 28pg (25-35) 28pg (25-35) Mean Corpuscular Hemoglobin Concent 32g/dL (31-37) 32g/dL (31-37) Red Cell Distribution Width 17.2% (11.5-14.5) 17.2% (11.5-14.5) Platelet Count 246x10^3/uL (140-400) 219x10^3/uL (140-400) Sodium Level 151mmol/L (136-145) Potassium Level 3.8mmol/L (3.5-5.1) Chloride Level 118mmol/L (98-107) Carbon Dioxide Level 19mmol/L (21-32) Anion Gap 14 (6-14) Blood Urea Nitrogen 50mg/dL (7-20) Creatinine 1.0mg/dL (0.6-1.0) Estimated GFR (Cockcroft-Gault) 55.1 Glucose Level 121mg/dL (70-99) Calcium Level 7.9mg/dL (8.5-10.1) O2 Saturation 95% (92-99) Arterial Blood pH 7.22 (7.35-7.45) Arterial Blood pCO2 at Patient Temp 42mmHg (35-46) Arterial Blood pO2 at Patient Temp 79mmHg (65-108) Arterial Blood HCO3 17mmol/L (21-28) Arterial Blood Base Excess -11mmol/L (-3-3) FiO2 30 Test 09/05/16 15:15 09/05/16 18:45 09/05/16 21:50 09/06/16 02:30 O2 Saturation 92% (92-99) Arterial Blood pH 7.24 (7.35-7.45) Arterial Blood pCO2 at Patient Temp 45mmHg (35-46) Arterial Blood pO2 at Patient Temp 66mmHg (65-108) Arterial Blood HCO3 19mmol/L (21-28) Arterial Blood Base Excess -9mmol/L (-3-3) FiO2 40 White Blood Count 14.9x10^3/uL (4.0-11.0) 18.4x10^3/uL (4.0-11.0) Red Blood Count 3.21x10^6/uL (3.50-5.40) 3.01x10^6/uL (3.50-5.40) Hemoglobin 9.2g/dL (12.0-15.5) 6.1g/dL (12.0-15.5) 8.1g/dL (12.0-15.5) Hematocrit 28.4% (36.0-47.0) 19.0% (36.0-47.0) 25.8% (36.0-47.0) Mean Corpuscular Volume 88fL (79-100) 86fL (79-100) Mean Corpuscular Hemoglobin 29pg (25-35) 27pg (25-35) Mean Corpuscular Hemoglobin Concent 32g/dL (31-37) 32g/dL (31-37) Red Cell Distribution Width 17.4% (11.5-14.5) 16.2% (11.5-14.5) Platelet Count 181x10^3/uL (140-400) 104x10^3/uL (140-400) Potassium Level 3.4mmol/L (3.5-5.1) Prothrombin Time 22.7SEC (11.7-14.0) Prothromb Time International Ratio 2.1 (0.8-1.1) Test 09/06/16 08:00 09/06/16 08:45 O2 Saturation 98% (92-99) Arterial Blood pH 7.19 (7.35-7.45) Arterial Blood pCO2 at Patient Temp 49mmHg (35-46) Arterial Blood pO2 at Patient Temp 140mmHg (65-108) Arterial Blood HCO3 18mmol/L (21-28) Arterial Blood Base Excess -10mmol/L (-3-3) FiO2 40 Potassium Level 3.6mmol/L (3.5-5.1) Magnesium Level 1.8mg/dL (1.8-2.4) Laboratory Tests Test 09/05/16 12:20 09/05/16 15:15 09/05/16 18:45 09/05/16 21:50 White Blood Count 22.1x10^3/uL (4.0-11.0) 14.9x10^3/uL (4.0-11.0) Red Blood Count 3.93x10^6/uL (3.50-5.40) 3.21x10^6/uL (3.50-5.40) Hemoglobin 11.1g/dL (12.0-15.5) 9.2g/dL (12.0-15.5) 6.1g/dL (12.0-15.5) Hematocrit 34.6% (36.0-47.0) 28.4% (36.0-47.0) 19.0% (36.0-47.0) Mean Corpuscular Volume 88fL (79-100) 88fL (79-100) Mean Corpuscular Hemoglobin 28pg (25-35) 29pg (25-35) Mean Corpuscular Hemoglobin Concent 32g/dL (31-37) 32g/dL (31-37) Red Cell Distribution Width 17.2% (11.5-14.5) 17.4% (11.5-14.5) Platelet Count 219x10^3/uL (140-400) 181x10^3/uL (140-400) O2 Saturation 92% (92-99) Arterial Blood pH 7.24 (7.35-7.45) Arterial Blood pCO2 at Patient Temp 45mmHg (35-46) Arterial Blood pO2 at Patient Temp 66mmHg (65-108) Arterial Blood HCO3 19mmol/L (21-28) Arterial Blood Base Excess -9mmol/L (-3-3) FiO2 40 Potassium Level 3.4mmol/L (3.5-5.1) Test 09/06/16 02:30 09/06/16 08:00 09/06/16 08:45 White Blood Count 18.4x10^3/uL (4.0-11.0) Red Blood Count 3.01x10^6/uL (3.50-5.40) Hemoglobin 8.1g/dL (12.0-15.5) Hematocrit 25.8% (36.0-47.0) Mean Corpuscular Volume 86fL (79-100) Mean Corpuscular Hemoglobin 27pg (25-35) Mean Corpuscular Hemoglobin Concent 32g/dL (31-37) Red Cell Distribution Width 16.2% (11.5-14.5) Platelet Count 104x10^3/uL (140-400) Prothrombin Time 22.7SEC (11.7-14.0) Prothromb Time International Ratio 2.1 (0.8-1.1) O2 Saturation 98% (92-99) Arterial Blood pH 7.19 (7.35-7.45) Arterial Blood pCO2 at Patient Temp 49mmHg (35-46) Arterial Blood pO2 at Patient Temp 140mmHg (65-108) Arterial Blood HCO3 18mmol/L (21-28) Arterial Blood Base Excess -10mmol/L (-3-3) FiO2 40 Potassium Level 3.6mmol/L (3.5-5.1) Magnesium Level 1.8mg/dL (1.8-2.4) Problem List Problems Medical Problems: (1) Anemia Status: Acute (2) Hypotension Status: Acute Assessment/Plan Large gastric ulcer with rebleed yesterday, underwent coiling by IR with resolution of bleeding Will monitor closely, very poor surgical candidate if bleeding continues Problems: ELI DRUMMOND MD Sep 06, 2016 9:20 am
[2016-09-06] MEDS ORDERED: PHYTONADIONE 10 MG/ML AMPUL. SQ ONE (09:30)
[2016-09-06] MEDS ORDERED: PANTOPRAZOLE IV PUSH 40 MG VIAL. IVP ONE (09:30)
[2016-09-06] MEDS ORDERED: VASOPRESSIN 40 UNIT in IV DEXTROSE 5% 100 ML IV PRN (10:00)
[2016-09-06 11:24] LABS: HEMATOCRIT 27.9 % (36.0-47.0); RED BLOOD COUNT 3.26 x10^6/uL (3.50-5.40); RED CELL DISTRIBUTION WIDTH 16.2 % (11.5-14.5); WHITE BLOOD COUNT 21.1 x10^3/uL (4.0-11.0)
--- NOTE | 2016-09-06 11:24 | PDOC ---
GENERAL General: remains on bi-pap and pressors. taken for angiography and coiling of bleeding vessels this am with no further bleeding currently with Hb 8. awakens and non- conversant this am. continued metabolic acidosis with Na of 163 this am and deferred to renal. cxr ordered this am. chest with diminished breath sounds but clear. heart tachy in 120's. abdomen soft. blood pressures ok on pressors. hopefully no further bleeding as very poor surgical candidate. Problems: VITAL SIGNS Vital Signs: Vital Signs Date Time Temp Pulse Resp B/P Pulse Ox O2 Delivery O2 Flow Rate FiO2 09/06/16 10:31 99.0 109 27 140/76 99.0 09/06/16 10:09 100 BiPAP/CPAP I & O I & O Intake and Output 09/06/16 06:59 Intake Total 1176 ml Output Total 678 ml Balance 498 ml Intake Oral 0 ml IV Total 1176 ml Output Urine Total 678 ml # Bowel Movements 9 ALLERGIES Allergies: Allergies Coded Allergies Type Severity Reaction Last Updated Verified amlodipine Adverse Reaction Intermediate Swelling 09/04/16 Yes MEDS Medications: Current Medications Medications (Trade) Dose Ordered Sig/Chrissie Start Time Stop Time Status Last Admin Dose Admin Albumin Human 100 ml @ 100 mls/hr TID 09/05/16 15:00 09/07/16 09:59 09/06/16 08:27 100 MLS/HR Desmopressin Acetate (Ddavp) 1 mcg BID 09/05/16 15:00 09/06/16 10:13 DC 09/05/16 20:51 1 MCG Diphenhydramine HCl (Benadryl) 50 mg STK-MED ONCE 09/06/16 01:02 09/06/16 01:03 DC Diphenhydramine HCl 25 mg 25 mg 1X ONCE 09/06/16 01:30 09/06/16 01:31 DC 09/06/16 01:25 25 MG Dopamine HCl/ Dextrose 250 ml @ 9.952 mls/ hr 1X ONCE 09/06/16 01:15 09/07/16 02:22 09/06/16 01:22 9.952 MLS/HR Epinephrine HCl (Adrenalin) 1 mg STK-MED ONCE 09/04/16 12:08 09/04/16 14:25 DC 09/04/16 12:08 0.2 MG Epinephrine HCl (Epinephrine Syringe) 1 mg STK-MED ONCE 09/04/16 12:05 09/04/16 12:06 DC Epinephrine HCl 1 mg 1 mg STK-MED ONCE 09/04/16 12:11 09/04/16 14:25 DC 09/04/16 12:11 0.4 MG Fentanyl Citrate (Fentanyl 2ml Vial) 25 mcg 1X ONCE 09/06/16 01:30 09/06/16 01:31 DC 09/06/16 01:22 25 MCG Gelatin (Gelfoam Size 12-7mm) 1 each STK-MED ONCE 09/05/16 23:35 09/05/16 23:36 DC Heparin Sodium/ Sodium Chloride 1,000 unit 1X ONCE 09/05/16 23:30 09/05/16 23:31 DC 09/05/16 23:46 1,000 UNIT Heparin Sodium/ Sodium Chloride 60 unit 60 unit 1X ONCE 09/04/16 08:45 09/04/16 08:46 DC Iohexol (Omnipaque 300 Mg/ml) 150 ml 1X ONCE 09/06/16 00:30 09/06/16 00:31 DC 09/06/16 01:08 150 ML Lidocaine HCl (Lidocaine Pf 2% Vial) 5 ml STK-MED ONCE 09/04/16 10:58 09/04/16 10:59 DC Lidocaine HCl 100 mg 100 mg STK-MED ONCE 09/06/16 03:32 09/06/16 03:33 DC Lidocaine/Sodium Bicarbonate (Buffered Lidocaine 1%) 20 ml 1X ONCE 09/05/16 23:30 09/05/16 23:31 DC 09/05/16 23:46 20 ML Lidocaine/Sodium Bicarbonate 20 ml 20 ml STK-MED ONCE 09/04/16 08:40 09/04/16 08:41 DC Magnesium Sulfate/ Dextrose 50 ml @ 25 mls/hr PRN DAILY PRN 09/06/16 06:30 Midazolam HCl (Versed) 2 mg 1X ONCE 09/06/16 00:30 09/06/16 00:31 DC 09/06/16 01:08 2 MG Morphine Sulfate 2 mg PRN Q4HRS PRN 09/05/16 10:15 09/05/16 16:31 2 MG Naloxone HCl (Narcan) 0.4 mg STK-MED ONCE 09/05/16 23:54 09/05/16 23:55 DC Norepinephrine Bitartrate (Levophed Vial) 4 mg STK-MED ONCE 09/06/16 00:43 09/06/16 00:44 DC Norepinephrine Bitartrate 8 mg/ Sodium Chloride 258 ml @ 0 mls/hr 1X ONCE 09/06/16 01:30 09/06/16 01:31 DC 09/06/16 01:26 58.05 MLS/HR Norepinephrine Bitartrate/Sodium Chloride (Levophed Vial/ Iv Sodium Chloride 0.9% 250ml) 258 ml @ 0 mls/hr CONT PRN 09/04/16 03:30 09/06/16 01:24 58.05 MLS/HR Pantoprazole Sodium (Protonix Vial) 40 mg 1X ONCE 09/04/16 04:00 09/04/16 04:01 DC 09/04/16 04:06 40 MG Pantoprazole Sodium 40 mg 40 mg 1X ONCE 09/06/16 09:30 09/06/16 09:31 DC 09/06/16 09:44 40 MG Pantoprazole Sodium 80 mg/ Sodium Chloride 100 ml @ 10 mls/hr Q10H 09/04/16 08:45 UNV Pantoprazole Sodium/Sodium Chloride (Protonix Iv/Iv Sodium Chloride 0.9% 100ml) 100 ml @ 10 mls/hr Q10H 09/04/16 08:45 09/05/16 19:58 10 MLS/HR Phenylephrine HCl/ Sodium Chloride (Miky-Synephrine Inj/Iv Sodium Chloride 0.9% 250ml) 252 ml @ 0 mls/hr CONT PRN 09/06/16 08:30 Phytonadione (Vitamin K) 10 mg 1X ONCE 09/06/16 09:30 09/06/16 09:31 DC 09/06/16 09:43 10 MG Phytonadione 10 mg/Sodium Chloride 51 ml @ 102 mls/hr 1X ONCE 09/06/16 04:30 09/06/16 08:49 DC Piperacillin Sod/ Tazobactam Sod 3.375 gm/Sodium Chloride 50 ml @ 100 mls/hr Q6HRS 09/03/16 20:00 09/05/16 17:38 100 MLS/HR Potassium Chloride (KCl Premix 20meq) 50 ml @ 50 mls/hr PRN Q2HR PRN 09/05/16 14:30 Propofol (Diprivan) 40 ml @ As Directed STK-MED ONCE 09/04/16 10:58 09/04/16 10:59 DC Sodium Bicarbonate 50 meq 50 meq Q6HRS 09/05/16 18:00 09/06/16 08:27 50 MEQ Sodium Bicarbonate/ Sodium Chloride (Iv Sodium Chloride 0.45%) 1,050 ml @ 125 mls/hr Q8H24M 09/05/16 09:30 09/05/16 14:28 DC 09/05/16 09:06 125 MLS/HR Sodium Chloride 500 ml @ 500 mls/hr PRN QID PRN 09/06/16 06:30 Vancomycin HCl 1 gm/Sodium Chloride 250 ml @ 250 mls/hr 1X ONCE 09/03/16 20:00 09/03/16 20:59 DC 09/03/16 20:08 250 MLS/HR Vasopressin/ Dextrose (Vasostrict) 102 ml @ 6 mls/hr CONT PRN 09/06/16 10:00 LAB Lab: Laboratory Tests Test 09/05/16 12:20 09/05/16 15:15 09/05/16 18:45 09/05/16 21:50 White Blood Count 22.1x10^3/uL (4.0-11.0) 14.9x10^3/uL (4.0-11.0) Red Blood Count 3.93x10^6/uL (3.50-5.40) 3.21x10^6/uL (3.50-5.40) Hemoglobin 11.1g/dL (12.0-15.5) 9.2g/dL (12.0-15.5) 6.1g/dL (12.0-15.5) Hematocrit 34.6% (36.0-47.0) 28.4% (36.0-47.0) 19.0% (36.0-47.0) Mean Corpuscular Volume 88fL (79-100) 88fL (79-100) Mean Corpuscular Hemoglobin 28pg (25-35) 29pg (25-35) Mean Corpuscular Hemoglobin Concent 32g/dL (31-37) 32g/dL (31-37) Red Cell Distribution Width 17.2% (11.5-14.5) 17.4% (11.5-14.5) Platelet Count 219x10^3/uL (140-400) 181x10^3/uL (140-400) O2 Saturation 92% (92-99) Arterial Blood pH 7.24 (7.35-7.45) Arterial Blood pCO2 at Patient Temp 45mmHg (35-46) Arterial Blood pO2 at Patient Temp 66mmHg (65-108) Arterial Blood HCO3 19mmol/L (21-28) Arterial Blood Base Excess -9mmol/L (-3-3) FiO2 40 Potassium Level 3.4mmol/L (3.5-5.1) Test 09/06/16 02:30 09/06/16 08:00 09/06/16 08:45 White Blood Count 18.4x10^3/uL (4.0-11.0) Red Blood Count 3.01x10^6/uL (3.50-5.40) Hemoglobin 8.1g/dL (12.0-15.5) Hematocrit 25.8% (36.0-47.0) Mean Corpuscular Volume 86fL (79-100) Mean Corpuscular Hemoglobin 27pg (25-35) Mean Corpuscular Hemoglobin Concent 32g/dL (31-37) Red Cell Distribution Width 16.2% (11.5-14.5) Platelet Count 104x10^3/uL (140-400) Prothrombin Time 22.7SEC (11.7-14.0) Prothromb Time International Ratio 2.1 (0.8-1.1) O2 Saturation 98% (92-99) Arterial Blood pH 7.19 (7.35-7.45) Arterial Blood pCO2 at Patient Temp 49mmHg (35-46) Arterial Blood pO2 at Patient Temp 140mmHg (65-108) Arterial Blood HCO3 18mmol/L (21-28) Arterial Blood Base Excess -10mmol/L (-3-3) FiO2 40 Sodium Level 163mmol/L (136-145) Potassium Level 3.6mmol/L (3.5-5.1) Magnesium Level 1.8mg/dL (1.8-2.4) APPLJAMIN MD Sep 06, 2016 11:24
[2016-09-06] MEDS: PIPERACILLIN/TAZOBACTAM 3.375 GM in IV NORMAL SALINE 50ML 50 ML IV SCH ×3 (12:00→23:38)
--- NOTE | 2016-09-06 12:07 | RAD ---
EXAM: Chest, single view. HISTORY: PICC line placement. COMPARISON: 09/04/2016. FINDINGS: A frontal view of the chest is obtained. There is no infiltrate, effusion or pneumothorax. The heart is normal in size. There is a right PICC with the tip in the superior vena cava. There is hyperinflation due to emphysema. IMPRESSION: No acute pulmonary finding.
[2016-09-06] MEDS ORDERED: NOREPINEPHRINE VIAL 8 MG in IV DEXTROSE 5% 250 ML IV PRN (12:30)
[2016-09-06] MEDS: POTASSIUM CHLORIDE 20MEQ 50 ML IV SCH ×2 (15:08→17:20)
[2016-09-06 15:35] LABS: HEMATOCRIT 23.3 % (36.0-47.0); HEMOGLOBIN 7.8 g/dL (12.0-15.5); RED BLOOD COUNT 2.79 x10^6/uL (3.50-5.40); RED CELL DISTRIBUTION WIDTH 16.2 % (11.5-14.5)
[2016-09-06 15:43] LABS: INR 1.5 (0.8-1.1); PROTHROMBIN TIME PATIENT 16.9 SEC (11.7-14.0)
[2016-09-06 17:33] LABS: CALCIUM 8.2 mg/dL (8.5-10.1); CREATININE 1.3 mg/dL (0.6-1.0); GFR 40.7; POTASSIUM 3.3 mmol/L (3.5-5.1)
[2016-09-06] MEDS: IV DEXTROSE 5% 1,000 ML IV SCH (20:55)
[2016-09-06 23:31] LABS: HEMATOCRIT 28.5 % (36.0-47.0); HEMOGLOBIN 9.5 g/dL (12.0-15.5); RED BLOOD COUNT 3.25 x10^6/uL (3.50-5.40); RED CELL DISTRIBUTION WIDTH 17.7 % (11.5-14.5); WHITE BLOOD COUNT 12.3 x10^3/uL (4.0-11.0)
[2016-09-07] VITALS (24 sets, daily range): BP systolic 112–159; BP diastolic 69–99
[2016-09-07 00:02] LABS: INR 1.1 (0.8-1.1); PROTHROMBIN TIME PATIENT 13.8 SEC (11.7-14.0)
[2016-09-07 00:16] LABS: CALCIUM 8.3 mg/dL (8.5-10.1); CREATININE 1.3 mg/dL (0.6-1.0); GFR 40.7; POTASSIUM 3.5 mmol/L (3.5-5.1)
[2016-09-07 05:26] LABS: BASO % 0 % (0-3); EOS % 0 % (0-3); HEMATOCRIT 29.3 % (36.0-47.0); HEMOGLOBIN 9.6 g/dL (12.0-15.5); LYMPH # 0.5 x10^3/uL (1.0-4.8); LYMPH % 3 % (24-48); MEAN CORPUSCULAR HEMOGLOBIN 29 pg (25-35); MEAN CORPUSCULAR HGB CONC 33 g/dL (31-37); MEAN CORPUSCULAR VOLUME 88 fL (79-100); MONO % 9 % (0-9); NEUT % 87 % (31-73); PLATELET COUNT 138 x10^3/uL (140-400); RED BLOOD COUNT 3.32 x10^6/uL (3.50-5.40); RED CELL DISTRIBUTION WIDTH 17.3 % (11.5-14.5); WHITE BLOOD COUNT 14.3 x10^3/uL (4.0-11.0)
[2016-09-07] MEDS: PANTOPRAZOLE SODIUM IV 80 MG in IV NORMAL SALINE 100ML 100 ML IV SCH ×2 (05:33→21:55)
[2016-09-07] MEDS: IV DEXTROSE 5% 1,000 ML IV SCH ×2 (05:33→16:09)
[2016-09-07] MEDS: PIPERACILLIN/TAZOBACTAM 3.375 GM in IV NORMAL SALINE 50ML 50 ML IV SCH ×3 (05:34→18:22)
[2016-09-07 05:43] LABS: ALBUMIN 3.9 g/dL (3.4-5.0); CALCIUM 8.3 mg/dL (8.5-10.1); CREATININE 1.3 mg/dL (0.6-1.0); GFR 40.7; PHOSPHORUS 4.2 mg/dL (2.6-4.7); POTASSIUM 3.4 mmol/L (3.5-5.1)
[2016-09-07] MEDS: SODIUM BICARB ADULT 8.4% 50 MEQ/50 ML DISP.SYRIN. IV SCH ×2 (06:10)
[2016-09-07 07:57] LABS: HCO3 ABG 27 mmol/L (21-28); PH ABG 7.21 (7.35-7.45); PO2 ABG 59 mmHg (65-108); SAT O2 ABG 88 % (92-99)
--- NOTE | 2016-09-07 08:16 | PDOC ---
Infectious Disease Note Subjective Subjective On BiPAP No fever ROS ROS Unobtainable Vital Sign Vital Signs Vital Signs Date Time Temp Pulse Resp B/P Pulse Ox O2 Delivery O2 Flow Rate FiO2 09/07/16 07:40 92 BiPAP/CPAP 09/07/16 07:15 98.4 117 27 144/87 98.4 09/07/16 04:00 3.0 Physical Exam PHYSICAL EXAM GENERAL: On BiPAP HEENT: PERRL, OC/OP dry NECK: Supple LUNGS: Clear HEART: S1S2, no gallop, no murmur ABD: BS present, soft, tender to light palpation Verma EXT: UE edema. Left lateral hip incision well-approx. rosy, Some serous sanguinous drainage. No redness - Mitts HIP H[employer] DANCER: Sleepy, SKIN: No rash. BLE, warm IV Right neck clean. IO _ removed and site clean Labs Lab Laboratory Tests Test 09/06/16 08:45 09/06/16 11:20 09/06/16 14:15 09/06/16 15:25 Sodium Level 163mmol/L (136-145) Potassium Level 3.6mmol/L (3.5-5.1) 3.1mmol/L (3.5-5.1) Magnesium Level 1.8mg/dL (1.8-2.4) White Blood Count 21.1x10^3/uL (4.0-11.0) 13.0x10^3/uL (4.0-11.0) Red Blood Count 3.26x10^6/uL (3.50-5.40) 2.79x10^6/uL (3.50-5.40) Hemoglobin 9.0g/dL (12.0-15.5) 7.8g/dL (12.0-15.5) Hematocrit 27.9% (36.0-47.0) 23.3% (36.0-47.0) Mean Corpuscular Volume 86fL (79-100) 83fL (79-100) Mean Corpuscular Hemoglobin 28pg (25-35) 28pg (25-35) Mean Corpuscular Hemoglobin Concent 32g/dL (31-37) 34g/dL (31-37) Red Cell Distribution Width 16.2% (11.5-14.5) 16.2% (11.5-14.5) Platelet Count 170x10^3/uL (140-400) 119x10^3/uL (140-400) Prothrombin Time 16.9SEC (11.7-14.0) Prothromb Time International Ratio 1.5 (0.8-1.1) Test 09/06/16 17:06 09/06/16 23:25 09/06/16 23:30 09/06/16 23:55 Sodium Level 162mmol/L (136-145) 161mmol/L (136-145) Potassium Level 3.3mmol/L (3.5-5.1) 3.5mmol/L (3.5-5.1) Chloride Level 124mmol/L (98-107) 123mmol/L (98-107) Carbon Dioxide Level 26mmol/L (21-32) 28mmol/L (21-32) Anion Gap 12 (6-14) 10 (6-14) Blood Urea Nitrogen 54mg/dL (7-20) 53mg/dL (7-20) Creatinine 1.3mg/dL (0.6-1.0) 1.3mg/dL (0.6-1.0) Estimated GFR (Cockcroft-Gault) 40.7 40.7 Glucose Level 129mg/dL (70-99) 182mg/dL (70-99) Calcium Level 8.2mg/dL (8.5-10.1) 8.3mg/dL (8.5-10.1) White Blood Count 12.3x10^3/uL (4.0-11.0) Red Blood Count 3.25x10^6/uL (3.50-5.40) Hemoglobin 9.5g/dL (12.0-15.5) Hematocrit 28.5% (36.0-47.0) Mean Corpuscular Volume 88fL (79-100) Mean Corpuscular Hemoglobin 29pg (25-35) Mean Corpuscular Hemoglobin Concent 33g/dL (31-37) Red Cell Distribution Width 17.7% (11.5-14.5) Platelet Count 139x10^3/uL (140-400) Prothrombin Time 13.8SEC (11.7-14.0) Prothromb Time International Ratio 1.1 (0.8-1.1) Test 09/07/16 05:15 White Blood Count 14.3x10^3/uL (4.0-11.0) Red Blood Count 3.32x10^6/uL (3.50-5.40) Hemoglobin 9.6g/dL (12.0-15.5) Hematocrit 29.3% (36.0-47.0) Mean Corpuscular Volume 88fL (79-100) Mean Corpuscular Hemoglobin 29pg (25-35) Mean Corpuscular Hemoglobin Concent 33g/dL (31-37) Red Cell Distribution Width 17.3% (11.5-14.5) Platelet Count 138x10^3/uL (140-400) Neutrophils (%) (Auto) 87% (31-73) Lymphocytes (%) (Auto) 3% (24-48) Monocytes (%) (Auto) 9% (0-9) Eosinophils (%) (Auto) 0% (0-3) Basophils (%) (Auto) 0% (0-3) Neutrophils # (Auto) 12.5x10^3uL (1.8-7.7) Lymphocytes # (Auto) 0.5x10^3/uL (1.0-4.8) Monocytes # (Auto) 1.3x10^3/uL (0.0-1.1) Eosinophils # (Auto) 0.0x10^3/uL (0.0-0.7) Basophils # (Auto) 0.0x10^3/uL (0.0-0.2) Sodium Level 160mmol/L (136-145) Potassium Level 3.4mmol/L (3.5-5.1) Chloride Level 122mmol/L (98-107) Carbon Dioxide Level 28mmol/L (21-32) Anion Gap 10 (6-14) Blood Urea Nitrogen 49mg/dL (7-20) Creatinine 1.3mg/dL (0.6-1.0) Estimated GFR (Cockcroft-Gault) 40.7 Glucose Level 184mg/dL (70-99) Calcium Level 8.3mg/dL (8.5-10.1) Phosphorus Level 4.2mg/dL (2.6-4.7) Magnesium Level 1.9mg/dL (1.8-2.4) Albumin 3.9g/dL (3.4-5.0) Objective Assessment GI bleed/Erosive gastritis & duodenal ulcers. s/p cauterization, 09/04 s/p PRBCs and emergent arteriogram-embolization w/ coiling 09/05 Anemia. s/p PRBCs times 3 Lactic acidosis likely sec to GI bleed and hypoperfusion, infection possible, less likely Minor drainage at Left hip surgery site Respiratory insufficiency on BiPAP Encephalopathy -seems to be improving Hypotension on Levophed Leukocytosis, trending up ? reactive Hypernatremia I Plan Plan of Care cont Zosyn for now labs in am supportive care JUAN ANTONIO PERRIN MD Sep 07, 2016 08:16
[2016-09-07 08:19] LABS: FIO2 ABG 35%; PCO2 ABG 69 mmHg (35-46)
--- NOTE | 2016-09-07 08:50 | PDOC ---
SUBJECTIVE ROS DARYL/ Met Acidosis Remains on BiPaP CVS: no Orthopnea, no CP RESP: + SOB, no HAWLEY GI: no Nausea, no Vomiting; min diarrhea : no Dysuria, no Urgency; pedersen in place, Uo is improving OBJECTIVE Vital Signs Vital Signs Date Time Temp Pulse Resp B/P Pulse Ox O2 Delivery O2 Flow Rate FiO2 09/07/16 08:20 Bi-pap 3.0 09/07/16 08:00 115 26 125/79 99 09/07/16 07:15 98.4 98.4 I & 0 Intake and Output 09/07/16 07:00 Intake Total 2722 ml Output Total 908 ml Balance 1814 ml IV Total 530 ml Blood Product IV Normal Saline Flush 1542 ml Other 650 ml Output Urine Total 908 ml PHYSICAL EXAM Physical Exam GEN: arousable, Oriented x 1, In mod resp distress while on BiPAP EYES: Sclera anicteric , Conjunctiva Normal EN: No EN Drainage, Mucous Membranes dryish on BiPAP NECK: no JVD, no JVP, Supple, no Thyromegaly CVS: S1S2, no Murmur, No Gallop, No Rub,+ Edema RESP: + Rales, no Rhonchi,min Acc. Muscle Use GI: BS + ve, NO Bruit, Non Tender, Non Distended : no CVA tenderness, no Suprapubic Tenderness Assessment & Plan NAGMA - resolved, Lactate wass ^ after hypotension/ Bleed. now no gap so Presumably better. ^Na - watch trend - on IV D5W; DDAVP was ordered, but will hold for now since UO is still marginal ? DARYL - due to prolonged Hypotension. Cannot R/o ATn, UO is improving IVF Bolus prn since UO is marginal but picking up HypoTension - just off of Pressors. edema unclear etio; IV ALB once Na corrects. SUspect RHF Low K off oand on - Sliding scale K COMMENT/RELEVANT DATA Meds Current Medications Medications (Trade) Dose Ordered Sig/Chrissie Start Time Stop Time Status Last Admin Dose Admin Albumin Human 100 ml @ 100 mls/hr TID 09/05/16 15:00 09/07/16 09:59 09/06/16 23:20 100 MLS/HR Desmopressin Acetate (Ddavp) 1 mcg BID 09/05/16 15:00 09/06/16 10:13 DC 09/05/16 20:51 1 MCG Dextrose 1,000 ml @ 100 mls/hr Q10H 09/06/16 20:00 09/07/16 05:33 100 MLS/HR Diphenhydramine HCl (Benadryl) 50 mg STK-MED ONCE 09/06/16 01:02 09/06/16 01:03 DC Diphenhydramine HCl 25 mg 25 mg 1X ONCE 09/06/16 01:30 09/06/16 01:31 DC 09/06/16 01:25 25 MG Dopamine HCl/ Dextrose 250 ml @ 9.952 mls/ hr 1X ONCE 09/06/16 01:15 09/07/16 02:22 DC 09/06/16 01:22 9.952 MLS/HR Epinephrine HCl (Adrenalin) 1 mg STK-MED ONCE 09/04/16 12:08 09/04/16 14:25 DC 09/04/16 12:08 0.2 MG Epinephrine HCl (Epinephrine Syringe) 1 mg STK-MED ONCE 09/04/16 12:05 09/04/16 12:06 DC Epinephrine HCl 1 mg 1 mg STK-MED ONCE 09/04/16 12:11 09/04/16 14:25 DC 09/04/16 12:11 0.4 MG Fentanyl Citrate (Fentanyl 2ml Vial) 25 mcg 1X ONCE 09/06/16 01:30 09/06/16 01:31 DC 09/06/16 01:22 25 MCG Gelatin (Gelfoam Size 12-7mm) 1 each STK-MED ONCE 09/05/16 23:35 09/05/16 23:36 DC Heparin Sodium/ Sodium Chloride 1,000 unit 1X ONCE 09/05/16 23:30 09/05/16 23:31 DC 09/05/16 23:46 1,000 UNIT Heparin Sodium/ Sodium Chloride 60 unit 60 unit 1X ONCE 09/04/16 08:45 09/04/16 08:46 DC Iohexol (Omnipaque 300 Mg/ml) 150 ml 1X ONCE 09/06/16 00:30 09/06/16 00:31 DC 09/06/16 01:08 150 ML Lidocaine HCl (Lidocaine Pf 2% Vial) 5 ml STK-MED ONCE 09/04/16 10:58 09/04/16 10:59 DC Lidocaine HCl 100 mg 100 mg STK-MED ONCE 09/06/16 03:32 09/06/16 03:33 DC Lidocaine/Sodium Bicarbonate (Buffered Lidocaine 1%) 20 ml 1X ONCE 09/05/16 23:30 09/05/16 23:31 DC 09/05/16 23:46 20 ML Lidocaine/Sodium Bicarbonate 20 ml 20 ml STK-MED ONCE 09/04/16 08:40 09/04/16 08:41 DC Magnesium Sulfate/ Dextrose 50 ml @ 25 mls/hr PRN DAILY PRN 09/06/16 06:30 Midazolam HCl (Versed) 2 mg 1X ONCE 09/06/16 00:30 09/06/16 00:31 DC 09/06/16 01:08 2 MG Morphine Sulfate 2 mg PRN Q4HRS PRN 09/05/16 10:15 09/05/16 16:31 2 MG Naloxone HCl (Narcan) 0.4 mg STK-MED ONCE 09/05/16 23:54 09/05/16 23:55 DC Norepinephrine Bitartrate (Levophed Vial) 4 mg STK-MED ONCE 09/06/16 00:43 09/06/16 00:44 DC Norepinephrine Bitartrate 8 mg/ Dextrose 258 ml @ 0 mls/hr CONT PRN 09/06/16 12:30 09/06/16 16:32 9.4 MLS/HR Norepinephrine Bitartrate 8 mg/ Sodium Chloride 258 ml @ 0 mls/hr 1X ONCE 09/06/16 01:30 09/06/16 01:31 DC 09/06/16 01:26 58.05 MLS/HR Norepinephrine Bitartrate/Sodium Chloride (Levophed Vial/ Iv Sodium Chloride 0.9% 250ml) 258 ml @ 0 mls/hr CONT PRN 09/04/16 03:30 09/06/16 12:24 DC 09/06/16 01:24 58.05 MLS/HR Pantoprazole Sodium (Protonix Vial) 40 mg 1X ONCE 09/04/16 04:00 09/04/16 04:01 DC 09/04/16 04:06 40 MG Pantoprazole Sodium 40 mg 40 mg 1X ONCE 09/06/16 09:30 09/06/16 09:31 DC 09/06/16 09:44 40 MG Pantoprazole Sodium 80 mg/ Sodium Chloride 100 ml @ 10 mls/hr Q10H 09/04/16 08:45 UNV Pantoprazole Sodium/Sodium Chloride (Protonix Iv/Iv Sodium Chloride 0.9% 100ml) 100 ml @ 10 mls/hr Q10H 09/04/16 08:45 09/07/16 05:33 10 MLS/HR Phenylephrine HCl 1 mg STK-MED ONCE 09/05/16 12:00 09/07/16 08:22 DC Phenylephrine HCl/ Sodium Chloride (Miky-Synephrine Inj/Iv Sodium Chloride 0.9% 250ml) 252 ml @ 0 mls/hr CONT PRN 09/06/16 08:30 Phytonadione (Vitamin K) 10 mg 1X ONCE 09/06/16 09:30 09/06/16 09:31 DC 09/06/16 09:43 10 MG Phytonadione 10 mg/Sodium Chloride 51 ml @ 102 mls/hr 1X ONCE 09/06/16 04:30 09/06/16 08:49 DC Piperacillin Sod/ Tazobactam Sod 3.375 gm/Sodium Chloride 50 ml @ 100 mls/hr Q6HRS 09/03/16 20:00 09/07/16 05:34 100 MLS/HR Potassium Chloride 50 ml @ 50 mls/hr Q2H 09/06/16 15:00 09/06/16 17:59 DC 09/06/16 17:20 50 MLS/HR Potassium Chloride (KCl Premix 20meq) 50 ml @ 50 mls/hr PRN Q2HR PRN 09/05/16 14:30 Propofol (Diprivan) 40 ml @ As Directed STK-MED ONCE 09/04/16 10:58 09/04/16 10:59 DC Sodium Bicarbonate 50 meq 50 meq Q6HRS 09/05/16 18:00 09/07/16 06:10 50 MEQ Sodium Bicarbonate/ Sodium Chloride (Iv Sodium Chloride 0.45%) 1,050 ml @ 125 mls/hr Q8H24M 09/05/16 09:30 09/05/16 14:28 DC 09/05/16 09:06 125 MLS/HR Sodium Chloride 500 ml @ 500 mls/hr PRN QID PRN 09/06/16 06:30 Vancomycin HCl 1 gm/Sodium Chloride 250 ml @ 250 mls/hr 1X ONCE 09/03/16 20:00 09/03/16 20:59 DC 09/03/16 20:08 250 MLS/HR Vasopressin 40 unit/Dextrose 102 ml @ 6 mls/hr CONT PRN 09/06/16 10:00 09/07/16 06:00 6 MLS/HR Lab Laboratory Tests Test 09/06/16 08:45 09/06/16 11:20 09/06/16 14:15 09/06/16 15:25 Sodium Level 163mmol/L (136-145) Potassium Level 3.6mmol/L (3.5-5.1) 3.1mmol/L (3.5-5.1) Magnesium Level 1.8mg/dL (1.8-2.4) White Blood Count 21.1x10^3/uL (4.0-11.0) 13.0x10^3/uL (4.0-11.0) Red Blood Count 3.26x10^6/uL (3.50-5.40) 2.79x10^6/uL (3.50-5.40) Hemoglobin 9.0g/dL (12.0-15.5) 7.8g/dL (12.0-15.5) Hematocrit 27.9% (36.0-47.0) 23.3% (36.0-47.0) Mean Corpuscular Volume 86fL (79-100) 83fL (79-100) Mean Corpuscular Hemoglobin 28pg (25-35) 28pg (25-35) Mean Corpuscular Hemoglobin Concent 32g/dL (31-37) 34g/dL (31-37) Red Cell Distribution Width 16.2% (11.5-14.5) 16.2% (11.5-14.5) Platelet Count 170x10^3/uL (140-400) 119x10^3/uL (140-400) Prothrombin Time 16.9SEC (11.7-14.0) Prothromb Time International Ratio 1.5 (0.8-1.1) Test 09/06/16 17:06 09/06/16 23:25 09/06/16 23:30 09/06/16 23:55 Sodium Level 162mmol/L (136-145) 161mmol/L (136-145) Potassium Level 3.3mmol/L (3.5-5.1) 3.5mmol/L (3.5-5.1) Chloride Level 124mmol/L (98-107) 123mmol/L (98-107) Carbon Dioxide Level 26mmol/L (21-32) 28mmol/L (21-32) Anion Gap 12 (6-14) 10 (6-14) Blood Urea Nitrogen 54mg/dL (7-20) 53mg/dL (7-20) Creatinine 1.3mg/dL (0.6-1.0) 1.3mg/dL (0.6-1.0) Estimated GFR (Cockcroft-Gault) 40.7 40.7 Glucose Level 129mg/dL (70-99) 182mg/dL (70-99) Calcium Level 8.2mg/dL (8.5-10.1) 8.3mg/dL (8.5-10.1) White Blood Count 12.3x10^3/uL (4.0-11.0) Red Blood Count 3.25x10^6/uL (3.50-5.40) Hemoglobin 9.5g/dL (12.0-15.5) Hematocrit 28.5% (36.0-47.0) Mean Corpuscular Volume 88fL (79-100) Mean Corpuscular Hemoglobin 29pg (25-35) Mean Corpuscular Hemoglobin Concent 33g/dL (31-37) Red Cell Distribution Width 17.7% (11.5-14.5) Platelet Count 139x10^3/uL (140-400) Prothrombin Time 13.8SEC (11.7-14.0) Prothromb Time International Ratio 1.1 (0.8-1.1) Test 09/07/16 05:15 09/07/16 08:00 White Blood Count 14.3x10^3/uL (4.0-11.0) Red Blood Count 3.32x10^6/uL (3.50-5.40) Hemoglobin 9.6g/dL (12.0-15.5) Hematocrit 29.3% (36.0-47.0) Mean Corpuscular Volume 88fL (79-100) Mean Corpuscular Hemoglobin 29pg (25-35) Mean Corpuscular Hemoglobin Concent 33g/dL (31-37) Red Cell Distribution Width 17.3% (11.5-14.5) Platelet Count 138x10^3/uL (140-400) Neutrophils (%) (Auto) 87% (31-73) Lymphocytes (%) (Auto) 3% (24-48) Monocytes (%) (Auto) 9% (0-9) Eosinophils (%) (Auto) 0% (0-3) Basophils (%) (Auto) 0% (0-3) Neutrophils # (Auto) 12.5x10^3uL (1.8-7.7) Lymphocytes # (Auto) 0.5x10^3/uL (1.0-4.8) Monocytes # (Auto) 1.3x10^3/uL (0.0-1.1) Eosinophils # (Auto) 0.0x10^3/uL (0.0-0.7) Basophils # (Auto) 0.0x10^3/uL (0.0-0.2) Sodium Level 160mmol/L (136-145) Potassium Level 3.4mmol/L (3.5-5.1) Chloride Level 122mmol/L (98-107) Carbon Dioxide Level 28mmol/L (21-32) Anion Gap 10 (6-14) Blood Urea Nitrogen 49mg/dL (7-20) Creatinine 1.3mg/dL (0.6-1.0) Estimated GFR (Cockcroft-Gault) 40.7 Glucose Level 184mg/dL (70-99) Calcium Level 8.3mg/dL (8.5-10.1) Phosphorus Level 4.2mg/dL (2.6-4.7) Magnesium Level 1.9mg/dL (1.8-2.4) Albumin 3.9g/dL (3.4-5.0) O2 Saturation 88% (92-99) Arterial Blood pH 7.21 (7.35-7.45) Arterial Blood pCO2 at Patient Temp 69mmHg (35-46) Arterial Blood pO2 at Patient Temp 59mmHg (65-108) Arterial Blood HCO3 27mmol/L (21-28) Arterial Blood Base Excess -2mmol/L (-3-3) FiO2 35% TARUN HUSTON MD Sep 07, 2016 08:50
--- NOTE | 2016-09-07 09:28 | PDOC ---
PULMONARY PROGRESS NOTES Vitals Vital Signs Date Time Temp Pulse Resp B/P Pulse Ox O2 Delivery O2 Flow Rate FiO2 09/07/16 09:06 117 28 142/77 100 BiPAP/CPAP 09/07/16 08:20 3.0 09/07/16 07:15 98.4 98.4 General: Alert, No acute distress Lungs: Other Cardiovascular: S1 Abdomen: Soft, Non-tender Extremities: No Edema Labs Laboratory Tests Test 09/05/16 12:20 09/05/16 15:15 09/05/16 18:45 09/05/16 21:50 White Blood Count 22.1x10^3/uL (4.0-11.0) 14.9x10^3/uL (4.0-11.0) Red Blood Count 3.93x10^6/uL (3.50-5.40) 3.21x10^6/uL (3.50-5.40) Hemoglobin 11.1g/dL (12.0-15.5) 9.2g/dL (12.0-15.5) 6.1g/dL (12.0-15.5) Hematocrit 34.6% (36.0-47.0) 28.4% (36.0-47.0) 19.0% (36.0-47.0) Mean Corpuscular Volume 88fL (79-100) 88fL (79-100) Mean Corpuscular Hemoglobin 28pg (25-35) 29pg (25-35) Mean Corpuscular Hemoglobin Concent 32g/dL (31-37) 32g/dL (31-37) Red Cell Distribution Width 17.2% (11.5-14.5) 17.4% (11.5-14.5) Platelet Count 219x10^3/uL (140-400) 181x10^3/uL (140-400) O2 Saturation 92% (92-99) Arterial Blood pH 7.24 (7.35-7.45) Arterial Blood pCO2 at Patient Temp 45mmHg (35-46) Arterial Blood pO2 at Patient Temp 66mmHg (65-108) Arterial Blood HCO3 19mmol/L (21-28) Arterial Blood Base Excess -9mmol/L (-3-3) FiO2 40 Potassium Level 3.4mmol/L (3.5-5.1) Test 09/06/16 02:30 09/06/16 08:00 09/06/16 08:45 09/06/16 11:20 White Blood Count 18.4x10^3/uL (4.0-11.0) 21.1x10^3/uL (4.0-11.0) Red Blood Count 3.01x10^6/uL (3.50-5.40) 3.26x10^6/uL (3.50-5.40) Hemoglobin 8.1g/dL (12.0-15.5) 9.0g/dL (12.0-15.5) Hematocrit 25.8% (36.0-47.0) 27.9% (36.0-47.0) Mean Corpuscular Volume 86fL (79-100) 86fL (79-100) Mean Corpuscular Hemoglobin 27pg (25-35) 28pg (25-35) Mean Corpuscular Hemoglobin Concent 32g/dL (31-37) 32g/dL (31-37) Red Cell Distribution Width 16.2% (11.5-14.5) 16.2% (11.5-14.5) Platelet Count 104x10^3/uL (140-400) 170x10^3/uL (140-400) Prothrombin Time 22.7SEC (11.7-14.0) Prothromb Time International Ratio 2.1 (0.8-1.1) O2 Saturation 98% (92-99) Arterial Blood pH 7.19 (7.35-7.45) Arterial Blood pCO2 at Patient Temp 49mmHg (35-46) Arterial Blood pO2 at Patient Temp 140mmHg (65-108) Arterial Blood HCO3 18mmol/L (21-28) Arterial Blood Base Excess -10mmol/L (-3-3) FiO2 40 Sodium Level 163mmol/L (136-145) Potassium Level 3.6mmol/L (3.5-5.1) Magnesium Level 1.8mg/dL (1.8-2.4) Test 09/06/16 14:15 09/06/16 15:25 09/06/16 17:06 09/06/16 23:25 Potassium Level 3.1mmol/L (3.5-5.1) 3.3mmol/L (3.5-5.1) White Blood Count 13.0x10^3/uL (4.0-11.0) 12.3x10^3/uL (4.0-11.0) Red Blood Count 2.79x10^6/uL (3.50-5.40) 3.25x10^6/uL (3.50-5.40) Hemoglobin 7.8g/dL (12.0-15.5) 9.5g/dL (12.0-15.5) Hematocrit 23.3% (36.0-47.0) 28.5% (36.0-47.0) Mean Corpuscular Volume 83fL (79-100) 88fL (79-100) Mean Corpuscular Hemoglobin 28pg (25-35) 29pg (25-35) Mean Corpuscular Hemoglobin Concent 34g/dL (31-37) 33g/dL (31-37) Red Cell Distribution Width 16.2% (11.5-14.5) 17.7% (11.5-14.5) Platelet Count 119x10^3/uL (140-400) 139x10^3/uL (140-400) Prothrombin Time 16.9SEC (11.7-14.0) Prothromb Time International Ratio 1.5 (0.8-1.1) Sodium Level 162mmol/L (136-145) Chloride Level 124mmol/L (98-107) Carbon Dioxide Level 26mmol/L (21-32) Anion Gap 12 (6-14) Blood Urea Nitrogen 54mg/dL (7-20) Creatinine 1.3mg/dL (0.6-1.0) Estimated GFR (Cockcroft-Gault) 40.7 Glucose Level 129mg/dL (70-99) Calcium Level 8.2mg/dL (8.5-10.1) Test 09/06/16 23:30 09/06/16 23:55 09/07/16 05:15 09/07/16 08:00 Prothrombin Time 13.8SEC (11.7-14.0) Prothromb Time International Ratio 1.1 (0.8-1.1) Sodium Level 161mmol/L (136-145) 160mmol/L (136-145) Potassium Level 3.5mmol/L (3.5-5.1) 3.4mmol/L (3.5-5.1) Chloride Level 123mmol/L (98-107) 122mmol/L (98-107) Carbon Dioxide Level 28mmol/L (21-32) 28mmol/L (21-32) Anion Gap 10 (6-14) 10 (6-14) Blood Urea Nitrogen 53mg/dL (7-20) 49mg/dL (7-20) Creatinine 1.3mg/dL (0.6-1.0) 1.3mg/dL (0.6-1.0) Estimated GFR (Cockcroft-Gault) 40.7 40.7 Glucose Level 182mg/dL (70-99) 184mg/dL (70-99) Calcium Level 8.3mg/dL (8.5-10.1) 8.3mg/dL (8.5-10.1) White Blood Count 14.3x10^3/uL (4.0-11.0) Red Blood Count 3.32x10^6/uL (3.50-5.40) Hemoglobin 9.6g/dL (12.0-15.5) Hematocrit 29.3% (36.0-47.0) Mean Corpuscular Volume 88fL (79-100) Mean Corpuscular Hemoglobin 29pg (25-35) Mean Corpuscular Hemoglobin Concent 33g/dL (31-37) Red Cell Distribution Width 17.3% (11.5-14.5) Platelet Count 138x10^3/uL (140-400) Neutrophils (%) (Auto) 87% (31-73) Lymphocytes (%) (Auto) 3% (24-48) Monocytes (%) (Auto) 9% (0-9) Eosinophils (%) (Auto) 0% (0-3) Basophils (%) (Auto) 0% (0-3) Neutrophils # (Auto) 12.5x10^3uL (1.8-7.7) Lymphocytes # (Auto) 0.5x10^3/uL (1.0-4.8) Monocytes # (Auto) 1.3x10^3/uL (0.0-1.1) Eosinophils # (Auto) 0.0x10^3/uL (0.0-0.7) Basophils # (Auto) 0.0x10^3/uL (0.0-0.2) Phosphorus Level 4.2mg/dL (2.6-4.7) Magnesium Level 1.9mg/dL (1.8-2.4) Albumin 3.9g/dL (3.4-5.0) O2 Saturation 88% (92-99) Arterial Blood pH 7.21 (7.35-7.45) Arterial Blood pCO2 at Patient Temp 69mmHg (35-46) Arterial Blood pO2 at Patient Temp 59mmHg (65-108) Arterial Blood HCO3 27mmol/L (21-28) Arterial Blood Base Excess -2mmol/L (-3-3) FiO2 35% Laboratory Tests Test 09/06/16 11:20 09/06/16 14:15 09/06/16 15:25 09/06/16 17:06 White Blood Count 21.1x10^3/uL (4.0-11.0) 13.0x10^3/uL (4.0-11.0) Red Blood Count 3.26x10^6/uL (3.50-5.40) 2.79x10^6/uL (3.50-5.40) Hemoglobin 9.0g/dL (12.0-15.5) 7.8g/dL (12.0-15.5) Hematocrit 27.9% (36.0-47.0) 23.3% (36.0-47.0) Mean Corpuscular Volume 86fL (79-100) 83fL (79-100) Mean Corpuscular Hemoglobin 28pg (25-35) 28pg (25-35) Mean Corpuscular Hemoglobin Concent 32g/dL (31-37) 34g/dL (31-37) Red Cell Distribution Width 16.2% (11.5-14.5) 16.2% (11.5-14.5) Platelet Count 170x10^3/uL (140-400) 119x10^3/uL (140-400) Potassium Level 3.1mmol/L (3.5-5.1) 3.3mmol/L (3.5-5.1) Prothrombin Time 16.9SEC (11.7-14.0) Prothromb Time International Ratio 1.5 (0.8-1.1) Sodium Level 162mmol/L (136-145) Chloride Level 124mmol/L (98-107) Carbon Dioxide Level 26mmol/L (21-32) Anion Gap 12 (6-14) Blood Urea Nitrogen 54mg/dL (7-20) Creatinine 1.3mg/dL (0.6-1.0) Estimated GFR (Cockcroft-Gault) 40.7 Glucose Level 129mg/dL (70-99) Calcium Level 8.2mg/dL (8.5-10.1) Test 09/06/16 23:25 09/06/16 23:30 09/06/16 23:55 09/07/16 05:15 White Blood Count 12.3x10^3/uL (4.0-11.0) 14.3x10^3/uL (4.0-11.0) Red Blood Count 3.25x10^6/uL (3.50-5.40) 3.32x10^6/uL (3.50-5.40) Hemoglobin 9.5g/dL (12.0-15.5) 9.6g/dL (12.0-15.5) Hematocrit 28.5% (36.0-47.0) 29.3% (36.0-47.0) Mean Corpuscular Volume 88fL (79-100) 88fL (79-100) Mean Corpuscular Hemoglobin 29pg (25-35) 29pg (25-35) Mean Corpuscular Hemoglobin Concent 33g/dL (31-37) 33g/dL (31-37) Red Cell Distribution Width 17.7% (11.5-14.5) 17.3% (11.5-14.5) Platelet Count 139x10^3/uL (140-400) 138x10^3/uL (140-400) Prothrombin Time 13.8SEC (11.7-14.0) Prothromb Time International Ratio 1.1 (0.8-1.1) Sodium Level 161mmol/L (136-145) 160mmol/L (136-145) Potassium Level 3.5mmol/L (3.5-5.1) 3.4mmol/L (3.5-5.1) Chloride Level 123mmol/L (98-107) 122mmol/L (98-107) Carbon Dioxide Level 28mmol/L (21-32) 28mmol/L (21-32) Anion Gap 10 (6-14) 10 (6-14) Blood Urea Nitrogen 53mg/dL (7-20) 49mg/dL (7-20) Creatinine 1.3mg/dL (0.6-1.0) 1.3mg/dL (0.6-1.0) Estimated GFR (Cockcroft-Gault) 40.7 40.7 Glucose Level 182mg/dL (70-99) 184mg/dL (70-99) Calcium Level 8.3mg/dL (8.5-10.1) 8.3mg/dL (8.5-10.1) Neutrophils (%) (Auto) 87% (31-73) Lymphocytes (%) (Auto) 3% (24-48) Monocytes (%) (Auto) 9% (0-9) Eosinophils (%) (Auto) 0% (0-3) Basophils (%) (Auto) 0% (0-3) Neutrophils # (Auto) 12.5x10^3uL (1.8-7.7) Lymphocytes # (Auto) 0.5x10^3/uL (1.0-4.8) Monocytes # (Auto) 1.3x10^3/uL (0.0-1.1) Eosinophils # (Auto) 0.0x10^3/uL (0.0-0.7) Basophils # (Auto) 0.0x10^3/uL (0.0-0.2) Phosphorus Level 4.2mg/dL (2.6-4.7) Magnesium Level 1.9mg/dL (1.8-2.4) Albumin 3.9g/dL (3.4-5.0) Test 09/07/16 08:00 O2 Saturation 88% (92-99) Arterial Blood pH 7.21 (7.35-7.45) Arterial Blood pCO2 at Patient Temp 69mmHg (35-46) Arterial Blood pO2 at Patient Temp 59mmHg (65-108) Arterial Blood HCO3 27mmol/L (21-28) Arterial Blood Base Excess -2mmol/L (-3-3) FiO2 35% Medications Active Scripts Medications Dose Route/Sig Days Date Category Dose Instructions Duoneb 0.5-3(2.5) Mg/3 Ml (Albuterol/Ipratropium) 3 Ml Ampul.neb 3 Ml NEB QID PRN 08/28/16 Reported Xanax (Alprazolam) 0.5 Mg Tablet 1 Tab PO Q8HRS PRN 08/28/16 Reported Senna-Docusate Sodium Tablet (Sennosides/Docusate Sodium) 1 Each Tablet 1 Each PO DAILY 08/28/16 Reported Coumadin (Warfarin Sodium) 2.5 Mg Tablet 1 Tab PO DAILY 08/28/[address] Ochoa Polyethylene Glycol 3350 255 Gm Powder 17 Gm PO DAILY PRN 08/25/16 Reported Hydrocodone-Apap 5-325 (Hydrocodone Bit/Acetaminophen) 1 Each Tablet 2 Tab PO PRN Q4HRS PRN 08/17/16 Rx Proair Hfa (Albuterol Sulfate) 8.5 Gm Hfa.aer.ad 08/13/16 Reported Valsartan-Hctz 160-12.5 Mg Tab (Valsartan/Hydrochlorothiazide) 1 Each Tablet 1 Each PO DAILY 08/12/16 Reported Combivent Respimat Inhal (Ipratropium/Albuterol Sulfate) 4 Gm Aer.w.adap 2 Inh IH QID 08/12/16 Reported Albuterol Sulfate Hfa Inhaler (Albuterol Sulfate) 8.5 Gm Hfa.aer.ad 8.5 Gm IH PRN 08/28/13 Reported Impression . full note dictated see my report a/c resp failure multifactorial spoke with Dr Ochoa continue support thanks GINO CORBIN MD Sep 07, 2016 09:28
[2016-09-07] MEDS: POTASSIUM CHLORIDE 20MEQ 50 ML IV SCH ×2 (09:38→10:49)
--- NOTE | 2016-09-07 09:53 | PDOC ---
SURGICAL PROGRESS NOTE Subjective Patient no CPAP, awake and alert. Denies abdominal pain. Vital Signs Vital Signs Date Time Temp Pulse Resp B/P Pulse Ox O2 Delivery O2 Flow Rate FiO2 09/07/16 09:06 117 28 142/77 100 BiPAP/CPAP 09/07/16 08:20 3.0 09/07/16 07:15 98.4 98.4 I&O Intake and Output 09/07/16 07:00 Intake Total 2722 ml Output Total 908 ml Balance 1814 ml IV Total 530 ml Blood Product IV Normal Saline Flush 1542 ml Other 650 ml Output Urine Total 908 ml PATIENT HAS A OLIVIER: Yes General: Alert, Cooperative, mild distress Abdomen: Normal bowel sounds, Soft, No tenderness, Other (Large loose bloody stool thia AM, melenotic) Labs Laboratory Tests Test 09/05/16 12:20 09/05/16 15:15 09/05/16 18:45 09/05/16 21:50 White Blood Count 22.1x10^3/uL (4.0-11.0) 14.9x10^3/uL (4.0-11.0) Red Blood Count 3.93x10^6/uL (3.50-5.40) 3.21x10^6/uL (3.50-5.40) Hemoglobin 11.1g/dL (12.0-15.5) 9.2g/dL (12.0-15.5) 6.1g/dL (12.0-15.5) Hematocrit 34.6% (36.0-47.0) 28.4% (36.0-47.0) 19.0% (36.0-47.0) Mean Corpuscular Volume 88fL (79-100) 88fL (79-100) Mean Corpuscular Hemoglobin 28pg (25-35) 29pg (25-35) Mean Corpuscular Hemoglobin Concent 32g/dL (31-37) 32g/dL (31-37) Red Cell Distribution Width 17.2% (11.5-14.5) 17.4% (11.5-14.5) Platelet Count 219x10^3/uL (140-400) 181x10^3/uL (140-400) O2 Saturation 92% (92-99) Arterial Blood pH 7.24 (7.35-7.45) Arterial Blood pCO2 at Patient Temp 45mmHg (35-46) Arterial Blood pO2 at Patient Temp 66mmHg (65-108) Arterial Blood HCO3 19mmol/L (21-28) Arterial Blood Base Excess -9mmol/L (-3-3) FiO2 40 Potassium Level 3.4mmol/L (3.5-5.1) Test 09/06/16 02:30 09/06/16 08:00 09/06/16 08:45 09/06/16 11:20 White Blood Count 18.4x10^3/uL (4.0-11.0) 21.1x10^3/uL (4.0-11.0) Red Blood Count 3.01x10^6/uL (3.50-5.40) 3.26x10^6/uL (3.50-5.40) Hemoglobin 8.1g/dL (12.0-15.5) 9.0g/dL (12.0-15.5) Hematocrit 25.8% (36.0-47.0) 27.9% (36.0-47.0) Mean Corpuscular Volume 86fL (79-100) 86fL (79-100) Mean Corpuscular Hemoglobin 27pg (25-35) 28pg (25-35) Mean Corpuscular Hemoglobin Concent 32g/dL (31-37) 32g/dL (31-37) Red Cell Distribution Width 16.2% (11.5-14.5) 16.2% (11.5-14.5) Platelet Count 104x10^3/uL (140-400) 170x10^3/uL (140-400) Prothrombin Time 22.7SEC (11.7-14.0) Prothromb Time International Ratio 2.1 (0.8-1.1) O2 Saturation 98% (92-99) Arterial Blood pH 7.19 (7.35-7.45) Arterial Blood pCO2 at Patient Temp 49mmHg (35-46) Arterial Blood pO2 at Patient Temp 140mmHg (65-108) Arterial Blood HCO3 18mmol/L (21-28) Arterial Blood Base Excess -10mmol/L (-3-3) FiO2 40 Sodium Level 163mmol/L (136-145) Potassium Level 3.6mmol/L (3.5-5.1) Magnesium Level 1.8mg/dL (1.8-2.4) Test 09/06/16 14:15 09/06/16 15:25 09/06/16 17:06 09/06/16 23:25 Potassium Level 3.1mmol/L (3.5-5.1) 3.3mmol/L (3.5-5.1) White Blood Count 13.0x10^3/uL (4.0-11.0) 12.3x10^3/uL (4.0-11.0) Red Blood Count 2.79x10^6/uL (3.50-5.40) 3.25x10^6/uL (3.50-5.40) Hemoglobin 7.8g/dL (12.0-15.5) 9.5g/dL (12.0-15.5) Hematocrit 23.3% (36.0-47.0) 28.5% (36.0-47.0) Mean Corpuscular Volume 83fL (79-100) 88fL (79-100) Mean Corpuscular Hemoglobin 28pg (25-35) 29pg (25-35) Mean Corpuscular Hemoglobin Concent 34g/dL (31-37) 33g/dL (31-37) Red Cell Distribution Width 16.2% (11.5-14.5) 17.7% (11.5-14.5) Platelet Count 119x10^3/uL (140-400) 139x10^3/uL (140-400) Prothrombin Time 16.9SEC (11.7-14.0) Prothromb Time International Ratio 1.5 (0.8-1.1) Sodium Level 162mmol/L (136-145) Chloride Level 124mmol/L (98-107) Carbon Dioxide Level 26mmol/L (21-32) Anion Gap 12 (6-14) Blood Urea Nitrogen 54mg/dL (7-20) Creatinine 1.3mg/dL (0.6-1.0) Estimated GFR (Cockcroft-Gault) 40.7 Glucose Level 129mg/dL (70-99) Calcium Level 8.2mg/dL (8.5-10.1) Test 09/06/16 23:30 09/06/16 23:55 09/07/16 05:15 09/07/16 08:00 Prothrombin Time 13.8SEC (11.7-14.0) Prothromb Time International Ratio 1.1 (0.8-1.1) Sodium Level 161mmol/L (136-145) 160mmol/L (136-145) Potassium Level 3.5mmol/L (3.5-5.1) 3.4mmol/L (3.5-5.1) Chloride Level 123mmol/L (98-107) 122mmol/L (98-107) Carbon Dioxide Level 28mmol/L (21-32) 28mmol/L (21-32) Anion Gap 10 (6-14) 10 (6-14) Blood Urea Nitrogen 53mg/dL (7-20) 49mg/dL (7-20) Creatinine 1.3mg/dL (0.6-1.0) 1.3mg/dL (0.6-1.0) Estimated GFR (Cockcroft-Gault) 40.7 40.7 Glucose Level 182mg/dL (70-99) 184mg/dL (70-99) Calcium Level 8.3mg/dL (8.5-10.1) 8.3mg/dL (8.5-10.1) White Blood Count 14.3x10^3/uL (4.0-11.0) Red Blood Count 3.32x10^6/uL (3.50-5.40) Hemoglobin 9.6g/dL (12.0-15.5) Hematocrit 29.3% (36.0-47.0) Mean Corpuscular Volume 88fL (79-100) Mean Corpuscular Hemoglobin 29pg (25-35) Mean Corpuscular Hemoglobin Concent 33g/dL (31-37) Red Cell Distribution Width 17.3% (11.5-14.5) Platelet Count 138x10^3/uL (140-400) Neutrophils (%) (Auto) 87% (31-73) Lymphocytes (%) (Auto) 3% (24-48) Monocytes (%) (Auto) 9% (0-9) Eosinophils (%) (Auto) 0% (0-3) Basophils (%) (Auto) 0% (0-3) Neutrophils # (Auto) 12.5x10^3uL (1.8-7.7) Lymphocytes # (Auto) 0.5x10^3/uL (1.0-4.8) Monocytes # (Auto) 1.3x10^3/uL (0.0-1.1) Eosinophils # (Auto) 0.0x10^3/uL (0.0-0.7) Basophils # (Auto) 0.0x10^3/uL (0.0-0.2) Phosphorus Level 4.2mg/dL (2.6-4.7) Magnesium Level 1.9mg/dL (1.8-2.4) Albumin 3.9g/dL (3.4-5.0) O2 Saturation 88% (92-99) Arterial Blood pH 7.21 (7.35-7.45) Arterial Blood pCO2 at Patient Temp 69mmHg (35-46) Arterial Blood pO2 at Patient Temp 59mmHg (65-108) Arterial Blood HCO3 27mmol/L (21-28) Arterial Blood Base Excess -2mmol/L (-3-3) FiO2 35% Laboratory Tests Test 09/06/16 11:20 09/06/16 14:15 09/06/16 15:25 09/06/16 17:06 White Blood Count 21.1x10^3/uL (4.0-11.0) 13.0x10^3/uL (4.0-11.0) Red Blood Count 3.26x10^6/uL (3.50-5.40) 2.79x10^6/uL (3.50-5.40) Hemoglobin 9.0g/dL (12.0-15.5) 7.8g/dL (12.0-15.5) Hematocrit 27.9% (36.0-47.0) 23.3% (36.0-47.0) Mean Corpuscular Volume 86fL (79-100) 83fL (79-100) Mean Corpuscular Hemoglobin 28pg (25-35) 28pg (25-35) Mean Corpuscular Hemoglobin Concent 32g/dL (31-37) 34g/dL (31-37) Red Cell Distribution Width 16.2% (11.5-14.5) 16.2% (11.5-14.5) Platelet Count 170x10^3/uL (140-400) 119x10^3/uL (140-400) Potassium Level 3.1mmol/L (3.5-5.1) 3.3mmol/L (3.5-5.1) Prothrombin Time 16.9SEC (11.7-14.0) Prothromb Time International Ratio 1.5 (0.8-1.1) Sodium Level 162mmol/L (136-145) Chloride Level 124mmol/L (98-107) Carbon Dioxide Level 26mmol/L (21-32) Anion Gap 12 (6-14) Blood Urea Nitrogen 54mg/dL (7-20) Creatinine 1.3mg/dL (0.6-1.0) Estimated GFR (Cockcroft-Gault) 40.7 Glucose Level 129mg/dL (70-99) Calcium Level 8.2mg/dL (8.5-10.1) Test 09/06/16 23:25 09/06/16 23:30 09/06/16 23:55 09/07/16 05:15 White Blood Count 12.3x10^3/uL (4.0-11.0) 14.3x10^3/uL (4.0-11.0) Red Blood Count 3.25x10^6/uL (3.50-5.40) 3.32x10^6/uL (3.50-5.40) Hemoglobin 9.5g/dL (12.0-15.5) 9.6g/dL (12.0-15.5) Hematocrit 28.5% (36.0-47.0) 29.3% (36.0-47.0) Mean Corpuscular Volume 88fL (79-100) 88fL (79-100) Mean Corpuscular Hemoglobin 29pg (25-35) 29pg (25-35) Mean Corpuscular Hemoglobin Concent 33g/dL (31-37) 33g/dL (31-37) Red Cell Distribution Width 17.7% (11.5-14.5) 17.3% (11.5-14.5) Platelet Count 139x10^3/uL (140-400) 138x10^3/uL (140-400) Prothrombin Time 13.8SEC (11.7-14.0) Prothromb Time International Ratio 1.1 (0.8-1.1) Sodium Level 161mmol/L (136-145) 160mmol/L (136-145) Potassium Level 3.5mmol/L (3.5-5.1) 3.4mmol/L (3.5-5.1) Chloride Level 123mmol/L (98-107) 122mmol/L (98-107) Carbon Dioxide Level 28mmol/L (21-32) 28mmol/L (21-32) Anion Gap 10 (6-14) 10 (6-14) Blood Urea Nitrogen 53mg/dL (7-20) 49mg/dL (7-20) Creatinine 1.3mg/dL (0.6-1.0) 1.3mg/dL (0.6-1.0) Estimated GFR (Cockcroft-Gault) 40.7 40.7 Glucose Level 182mg/dL (70-99) 184mg/dL (70-99) Calcium Level 8.3mg/dL (8.5-10.1) 8.3mg/dL (8.5-10.1) Neutrophils (%) (Auto) 87% (31-73) Lymphocytes (%) (Auto) 3% (24-48) Monocytes (%) (Auto) 9% (0-9) Eosinophils (%) (Auto) 0% (0-3) Basophils (%) (Auto) 0% (0-3) Neutrophils # (Auto) 12.5x10^3uL (1.8-7.7) Lymphocytes # (Auto) 0.5x10^3/uL (1.0-4.8) Monocytes # (Auto) 1.3x10^3/uL (0.0-1.1) Eosinophils # (Auto) 0.0x10^3/uL (0.0-0.7) Basophils # (Auto) 0.0x10^3/uL (0.0-0.2) Phosphorus Level 4.2mg/dL (2.6-4.7) Magnesium Level 1.9mg/dL (1.8-2.4) Albumin 3.9g/dL (3.4-5.0) Test 09/07/16 08:00 O2 Saturation 88% (92-99) Arterial Blood pH 7.21 (7.35-7.45) Arterial Blood pCO2 at Patient Temp 69mmHg (35-46) Arterial Blood pO2 at Patient Temp 59mmHg (65-108) Arterial Blood HCO3 27mmol/L (21-28) Arterial Blood Base Excess -2mmol/L (-3-3) FiO2 35% Problem List Problems Medical Problems: (1) Anemia Status: Acute (2) Hypotension Status: Acute Assessment/Plan GI bleed from large ulcer s/p EGD with intervention and IR intervention of coils. Hgb stable 9.6 normal coags VSS Would favor monitoring at this time as she maybe clearing old blood. Very poor surgical candidate, with ARF and Pulmonary failure. Problems: ELI DRUMMOND MD Sep 07, 2016 09:52
--- NOTE | 2016-09-07 10:34 | RAD ---
Exam: AP portable chest. History: Evaluate location of internal jugular catheter, possibly dislodged. Comparison: 09/06/2016. Findings: Cardiac silhouette appears within normal limits for size. Aortic atherosclerosis is seen. A right internal jugular central venous catheter is unchanged with tip projecting at the atriocaval junction. No pneumothorax or pleural effusion is identified. No focal consolidation is seen. Impression: 1. No acute cardiopulmonary process. 2. Right internal jugular central venous catheter is unchanged.
--- NOTE | 2016-09-07 12:00 | PDOC ---
G I PROGRESS NOTE Reason for Follow-up Acute blood loss anemia/Bleeding DU Subjective ON CPAP Physical Exam Lungs coarse rhonchi CV S1 S2 ABD +BS, soft, nontender Review of Relevant I have reviewed the following items pako (where applicable) has been applied. Labs Laboratory Tests Test 09/05/16 12:20 09/05/16 15:15 09/05/16 18:45 09/05/16 21:50 White Blood Count 22.1x10^3/uL (4.0-11.0) 14.9x10^3/uL (4.0-11.0) Red Blood Count 3.93x10^6/uL (3.50-5.40) 3.21x10^6/uL (3.50-5.40) Hemoglobin 11.1g/dL (12.0-15.5) 9.2g/dL (12.0-15.5) 6.1g/dL (12.0-15.5) Hematocrit 34.6% (36.0-47.0) 28.4% (36.0-47.0) 19.0% (36.0-47.0) Mean Corpuscular Volume 88fL (79-100) 88fL (79-100) Mean Corpuscular Hemoglobin 28pg (25-35) 29pg (25-35) Mean Corpuscular Hemoglobin Concent 32g/dL (31-37) 32g/dL (31-37) Red Cell Distribution Width 17.2% (11.5-14.5) 17.4% (11.5-14.5) Platelet Count 219x10^3/uL (140-400) 181x10^3/uL (140-400) O2 Saturation 92% (92-99) Arterial Blood pH 7.24 (7.35-7.45) Arterial Blood pCO2 at Patient Temp 45mmHg (35-46) Arterial Blood pO2 at Patient Temp 66mmHg (65-108) Arterial Blood HCO3 19mmol/L (21-28) Arterial Blood Base Excess -9mmol/L (-3-3) FiO2 40 Potassium Level 3.4mmol/L (3.5-5.1) Test 09/06/16 02:30 09/06/16 08:00 09/06/16 08:45 09/06/16 11:20 White Blood Count 18.4x10^3/uL (4.0-11.0) 21.1x10^3/uL (4.0-11.0) Red Blood Count 3.01x10^6/uL (3.50-5.40) 3.26x10^6/uL (3.50-5.40) Hemoglobin 8.1g/dL (12.0-15.5) 9.0g/dL (12.0-15.5) Hematocrit 25.8% (36.0-47.0) 27.9% (36.0-47.0) Mean Corpuscular Volume 86fL (79-100) 86fL (79-100) Mean Corpuscular Hemoglobin 27pg (25-35) 28pg (25-35) Mean Corpuscular Hemoglobin Concent 32g/dL (31-37) 32g/dL (31-37) Red Cell Distribution Width 16.2% (11.5-14.5) 16.2% (11.5-14.5) Platelet Count 104x10^3/uL (140-400) 170x10^3/uL (140-400) Prothrombin Time 22.7SEC (11.7-14.0) Prothromb Time International Ratio 2.1 (0.8-1.1) O2 Saturation 98% (92-99) Arterial Blood pH 7.19 (7.35-7.45) Arterial Blood pCO2 at Patient Temp 49mmHg (35-46) Arterial Blood pO2 at Patient Temp 140mmHg (65-108) Arterial Blood HCO3 18mmol/L (21-28) Arterial Blood Base Excess -10mmol/L (-3-3) FiO2 40 Sodium Level 163mmol/L (136-145) Potassium Level 3.6mmol/L (3.5-5.1) Magnesium Level 1.8mg/dL (1.8-2.4) Test 09/06/16 14:15 09/06/16 15:25 09/06/16 17:06 09/06/16 23:25 Potassium Level 3.1mmol/L (3.5-5.1) 3.3mmol/L (3.5-5.1) White Blood Count 13.0x10^3/uL (4.0-11.0) 12.3x10^3/uL (4.0-11.0) Red Blood Count 2.79x10^6/uL (3.50-5.40) 3.25x10^6/uL (3.50-5.40) Hemoglobin 7.8g/dL (12.0-15.5) 9.5g/dL (12.0-15.5) Hematocrit 23.3% (36.0-47.0) 28.5% (36.0-47.0) Mean Corpuscular Volume 83fL (79-100) 88fL (79-100) Mean Corpuscular Hemoglobin 28pg (25-35) 29pg (25-35) Mean Corpuscular Hemoglobin Concent 34g/dL (31-37) 33g/dL (31-37) Red Cell Distribution Width 16.2% (11.5-14.5) 17.7% (11.5-14.5) Platelet Count 119x10^3/uL (140-400) 139x10^3/uL (140-400) Prothrombin Time 16.9SEC (11.7-14.0) Prothromb Time International Ratio 1.5 (0.8-1.1) Sodium Level 162mmol/L (136-145) Chloride Level 124mmol/L (98-107) Carbon Dioxide Level 26mmol/L (21-32) Anion Gap 12 (6-14) Blood Urea Nitrogen 54mg/dL (7-20) Creatinine 1.3mg/dL (0.6-1.0) Estimated GFR (Cockcroft-Gault) 40.7 Glucose Level 129mg/dL (70-99) Calcium Level 8.2mg/dL (8.5-10.1) Test 09/06/16 23:30 09/06/16 23:55 09/07/16 05:15 09/07/16 08:00 Prothrombin Time 13.8SEC (11.7-14.0) Prothromb Time International Ratio 1.1 (0.8-1.1) Sodium Level 161mmol/L (136-145) 160mmol/L (136-145) Potassium Level 3.5mmol/L (3.5-5.1) 3.4mmol/L (3.5-5.1) Chloride Level 123mmol/L (98-107) 122mmol/L (98-107) Carbon Dioxide Level 28mmol/L (21-32) 28mmol/L (21-32) Anion Gap 10 (6-14) 10 (6-14) Blood Urea Nitrogen 53mg/dL (7-20) 49mg/dL (7-20) Creatinine 1.3mg/dL (0.6-1.0) 1.3mg/dL (0.6-1.0) Estimated GFR (Cockcroft-Gault) 40.7 40.7 Glucose Level 182mg/dL (70-99) 184mg/dL (70-99) Calcium Level 8.3mg/dL (8.5-10.1) 8.3mg/dL (8.5-10.1) White Blood Count 14.3x10^3/uL (4.0-11.0) Red Blood Count 3.32x10^6/uL (3.50-5.40) Hemoglobin 9.6g/dL (12.0-15.5) Hematocrit 29.3% (36.0-47.0) Mean Corpuscular Volume 88fL (79-100) Mean Corpuscular Hemoglobin 29pg (25-35) Mean Corpuscular Hemoglobin Concent 33g/dL (31-37) Red Cell Distribution Width 17.3% (11.5-14.5) Platelet Count 138x10^3/uL (140-400) Neutrophils (%) (Auto) 87% (31-73) Lymphocytes (%) (Auto) 3% (24-48) Monocytes (%) (Auto) 9% (0-9) Eosinophils (%) (Auto) 0% (0-3) Basophils (%) (Auto) 0% (0-3) Neutrophils # (Auto) 12.5x10^3uL (1.8-7.7) Lymphocytes # (Auto) 0.5x10^3/uL (1.0-4.8) Monocytes # (Auto) 1.3x10^3/uL (0.0-1.1) Eosinophils # (Auto) 0.0x10^3/uL (0.0-0.7) Basophils # (Auto) 0.0x10^3/uL (0.0-0.2) Phosphorus Level 4.2mg/dL (2.6-4.7) Magnesium Level 1.9mg/dL (1.8-2.4) Albumin 3.9g/dL (3.4-5.0) O2 Saturation 88% (92-99) Arterial Blood pH 7.21 (7.35-7.45) Arterial Blood pCO2 at Patient Temp 69mmHg (35-46) Arterial Blood pO2 at Patient Temp 59mmHg (65-108) Arterial Blood HCO3 27mmol/L (21-28) Arterial Blood Base Excess -2mmol/L (-3-3) FiO2 35% Laboratory Tests Test 09/06/16 14:15 09/06/16 15:25 09/06/16 17:06 09/06/16 23:25 Potassium Level 3.1mmol/L (3.5-5.1) 3.3mmol/L (3.5-5.1) White Blood Count 13.0x10^3/uL (4.0-11.0) 12.3x10^3/uL (4.0-11.0) Red Blood Count 2.79x10^6/uL (3.50-5.40) 3.25x10^6/uL (3.50-5.40) Hemoglobin 7.8g/dL (12.0-15.5) 9.5g/dL (12.0-15.5) Hematocrit 23.3% (36.0-47.0) 28.5% (36.0-47.0) Mean Corpuscular Volume 83fL (79-100) 88fL (79-100) Mean Corpuscular Hemoglobin 28pg (25-35) 29pg (25-35) Mean Corpuscular Hemoglobin Concent 34g/dL (31-37) 33g/dL (31-37) Red Cell Distribution Width 16.2% (11.5-14.5) 17.7% (11.5-14.5) Platelet Count 119x10^3/uL (140-400) 139x10^3/uL (140-400) Prothrombin Time 16.9SEC (11.7-14.0) Prothromb Time International Ratio 1.5 (0.8-1.1) Sodium Level 162mmol/L (136-145) Chloride Level 124mmol/L (98-107) Carbon Dioxide Level 26mmol/L (21-32) Anion Gap 12 (6-14) Blood Urea Nitrogen 54mg/dL (7-20) Creatinine 1.3mg/dL (0.6-1.0) Estimated GFR (Cockcroft-Gault) 40.7 Glucose Level 129mg/dL (70-99) Calcium Level 8.2mg/dL (8.5-10.1) Test 09/06/16 23:30 09/06/16 23:55 09/07/16 05:15 09/07/16 08:00 Prothrombin Time 13.8SEC (11.7-14.0) Prothromb Time International Ratio 1.1 (0.8-1.1) Sodium Level 161mmol/L (136-145) 160mmol/L (136-145) Potassium Level 3.5mmol/L (3.5-5.1) 3.4mmol/L (3.5-5.1) Chloride Level 123mmol/L (98-107) 122mmol/L (98-107) Carbon Dioxide Level 28mmol/L (21-32) 28mmol/L (21-32) Anion Gap 10 (6-14) 10 (6-14) Blood Urea Nitrogen 53mg/dL (7-20) 49mg/dL (7-20) Creatinine 1.3mg/dL (0.6-1.0) 1.3mg/dL (0.6-1.0) Estimated GFR (Cockcroft-Gault) 40.7 40.7 Glucose Level 182mg/dL (70-99) 184mg/dL (70-99) Calcium Level 8.3mg/dL (8.5-10.1) 8.3mg/dL (8.5-10.1) White Blood Count 14.3x10^3/uL (4.0-11.0) Red Blood Count 3.32x10^6/uL (3.50-5.40) Hemoglobin 9.6g/dL (12.0-15.5) Hematocrit 29.3% (36.0-47.0) Mean Corpuscular Volume 88fL (79-100) Mean Corpuscular Hemoglobin 29pg (25-35) Mean Corpuscular Hemoglobin Concent 33g/dL (31-37) Red Cell Distribution Width 17.3% (11.5-14.5) Platelet Count 138x10^3/uL (140-400) Neutrophils (%) (Auto) 87% (31-73) Lymphocytes (%) (Auto) 3% (24-48) Monocytes (%) (Auto) 9% (0-9) Eosinophils (%) (Auto) 0% (0-3) Basophils (%) (Auto) 0% (0-3) Neutrophils # (Auto) 12.5x10^3uL (1.8-7.7) Lymphocytes # (Auto) 0.5x10^3/uL (1.0-4.8) Monocytes # (Auto) 1.3x10^3/uL (0.0-1.1) Eosinophils # (Auto) 0.0x10^3/uL (0.0-0.7) Basophils # (Auto) 0.0x10^3/uL (0.0-0.2) Phosphorus Level 4.2mg/dL (2.6-4.7) Magnesium Level 1.9mg/dL (1.8-2.4) Albumin 3.9g/dL (3.4-5.0) O2 Saturation 88% (92-99) Arterial Blood pH 7.21 (7.35-7.45) Arterial Blood pCO2 at Patient Temp 69mmHg (35-46) Arterial Blood pO2 at Patient Temp 59mmHg (65-108) Arterial Blood HCO3 27mmol/L (21-28) Arterial Blood Base Excess -2mmol/L (-3-3) FiO2 35% Microbiology 09/03/16 Blood Culture - Preliminary, Resulted NO GROWTH AFTER 3 DAYS Medications Current Medications Sodium Chloride 1,000 ml @ 0 mls/hr 1X ONCE IV Last administered on 14:00; Start 09/03/16 at 14:00; Stop 09/03/16 at 14:01; Status DC Sodium Chloride 1,000 ml @ 0 mls/hr 1X ONCE IV Last administered on 16:13; Start 09/03/16 at 15:45; Stop 09/03/16 at 15:46; Status DC Vancomycin HCl 1 gm/Sodium Chloride 250 ml @ 250 mls/hr 1X ONCE IV Last administered on 09/03/16 20:08; Start 09/03/16 at 20:00; Stop 09/03/16 at 20:59 ; Status DC Piperacillin Sod/ Tazobactam Sod 3.375 gm/Sodium Chloride 50 ml @ 100 mls/hr Q6HRS IV Last administered on 09/07/16 05:34; Start 09/03/16 at 20:00 Sodium Chloride 1,000 ml @ 1,000 mls/hr 1X ONCE IV Last administered on 19:00; Start 09/03/16 at 19:00; Stop 09/03/16 at 19:59; Status DC Sodium Chloride (Iv Sodium Chloride 0.9% 1000ml Bag) 1,000 ml @ 100 mls/hr Q10H IV Last administered on 09/05/16 02:13; Start 09/03/16 at 20:00; Stop 09/05 at 08:39; Status DC Pantoprazole Sodium 40 mg 40 mg DAILYAC IVP ; Start 09/04/16 at 07:30; Status Cancel Norepinephrine Bitartrate/Sodium Chloride (Levophed Vial/ Iv Sodium Chloride 0.9 % 250ml) 258 ml @ 0 mls/hr CONT PRN IV SEE I/O RECORD Last administered on 01:24; Start 09/04/16 at 03:30; Stop 09/06/16 at 12:24; Status DC Pantoprazole Sodium (Protonix Vial) 40 mg 1X ONCE IVP Last administered on 04:06; Start 09/04/16 at 04:00; Stop 09/04/16 at 04:01; Status DC Lidocaine/Sodium Bicarbonate 20 ml 20 ml STK-MED ONCE IJ ; Start 09/04/16 at 08: 40; Stop 09/04/16 at 08:41; Status DC Pantoprazole Sodium/Sodium Chloride (Protonix Iv/Iv Sodium Chloride 0.9% 100ml) 100 ml @ 10 mls/hr Q10H IV Last administered on 09/07/16 05:33; Start at 08:45 Lidocaine/Sodium Bicarbonate (Buffered Lidocaine 1%) 3 ml 1X ONCE IJ ; Start at 08:45; Stop 09/04/16 at 08:46; Status DC Heparin Sodium/ Sodium Chloride 60 unit 60 unit 1X ONCE IV ; Start 09/04/16 at 08:45; Stop 09/04/16 at 08:46; Status DC Pantoprazole Sodium 80 mg/ Sodium Chloride 100 ml @ 10 mls/hr Q10H IV ; Start 09/04/16 at 08:45; Status UNV Propofol (Diprivan) 40 ml @ As Directed STK-MED ONCE IV ; Start 09/04/16 at 10: 58; Stop 09/04/16 at 10:59; Status DC Lidocaine HCl (Lidocaine Pf 2% Vial) 5 ml STK-MED ONCE .ROUTE ; Start 09/04/16 at 10:58; Stop 09/04/16 at 10:59; Status DC Epinephrine HCl (Epinephrine Syringe) 1 mg STK-MED ONCE .ROUTE ; Start 09/04/16 at 12:02; Stop 09/04/16 at 12:03; Status DC Epinephrine HCl (Epinephrine Syringe) 1 mg STK-MED ONCE .ROUTE ; Start 09/04/16 at 12:05; Stop 09/04/16 at 12:06; Status DC Lidocaine/Sodium Bicarbonate 20 ml 20 ml STK-MED ONCE IJ ; Start 09/04/16 at 13: 12; Stop 09/04/16 at 13:13; Status DC Heparin Sodium/ Sodium Chloride 500 ml @ As Directed STK-MED ONCE .ROUTE ; Start 09/04/16 at 13:12; Stop 09/04/16 at 13:13; Status DC Epinephrine HCl (Adrenalin) 1 mg STK-MED ONCE SQ Last administered on 12:08; Start 09/04/16 at 12:08; Stop 09/04/16 at 14:25; Status DC Epinephrine HCl 1 mg 1 mg STK-MED ONCE SQ Last administered on 09/04/16 12:11 ; Start 09/04/16 at 12:11; Stop 09/04/16 at 14:25; Status DC Sodium Bicarbonate/ Sodium Chloride (Iv Sodium Chloride 0.45%) 1,050 ml @ 125 mls/hr Q8H24M IV Last administered on 09/05/16 09:06; Start 09/05/16 at 09:30; Stop 09/05/16 at 14:28; Status DC Morphine Sulfate 1 mg PRN Q4HRS PRN IV PAIN; Start 09/05/16 at 10:15 Morphine Sulfate 2 mg PRN Q4HRS PRN IV PAIN Last administered on 09/05/16 16:31 ; Start 09/05/16 at 10:15 Desmopressin Acetate (Ddavp) 1 mcg BID SQ Last administered on 09/05/16 20:51; Start 09/05/16 at 15:00; Stop 09/06/16 at 10:13; Status DC Sodium Bicarbonate 50 meq 50 meq Q6HRS IV Last administered on 09/07/16 06:10; Start 09/05/16 at 18:00; Stop 09/07/16 at 08:51; Status DC Albumin Human 100 ml @ 100 mls/hr TID IV Last administered on 09/06/16 23:20; Start 09/05/16 at 15:00; Stop 09/07/16 at 08:51; Status DC Magnesium Sulfate/ Dextrose 50 ml @ 25 mls/hr PRN DAILY PRN IV for Mag < 1.7 on am labs; Start 09/05/16 at 14:30; Stop 09/06/16 at 06:18; Status DC Potassium Chloride 50 ml @ 50 mls/hr PRN Q6HRS PRN IV For K < 3.7; Start at 14:30 Potassium Chloride (KCl Premix 20meq) 50 ml @ 50 mls/hr PRN Q2HR PRN IV total of 40mEq for K < 3.5; Start 09/05/16 at 14:30 Iohexol (Omnipaque 300 Mg/ml) 50 ml STK-MED ONCE .ROUTE ; Start 09/05/16 at 22:27 ; Stop 09/05/16 at 22:28; Status DC Iohexol (Omnipaque 300 Mg/ml) 100 ml STK-MED ONCE .ROUTE ; Start 09/05/16 at 22: 27; Stop 09/05/16 at 22:28; Status DC Lidocaine/Sodium Bicarbonate 20 ml 20 ml STK-MED ONCE IJ ; Start 09/05/16 at 22: 27; Stop 09/05/16 at 22:28; Status DC Heparin Sodium/ Sodium Chloride 1,000 ml @ As Directed STK-MED ONCE .ROUTE ; Start 09/05/16 at 22:27; Stop 09/05/16 at 22:28; Status DC Heparin Sodium/ Sodium Chloride 1,000 unit 1X ONCE IART Last administered on 23:46; Start 09/05/16 at 23:30; Stop 09/05/16 at 23:31; Status DC Lidocaine/Sodium Bicarbonate (Buffered Lidocaine 1%) 20 ml 1X ONCE IJ Last administered on 09/05/16 23:46; Start 09/05/16 at 23:30; Stop 09/05/16 at 23:31; Status DC Iohexol (Omnipaque 300 Mg/ml) 100 ml 1X ONCE IART Last administered on 01:07; Start 09/05/16 at 23:30; Stop 09/05/16 at 23:31; Status DC Gelatin (Gelfoam Size 12-7mm) 1 each STK-MED ONCE .ROUTE ; Start 09/05/16 at 23: 35; Stop 09/05/16 at 23:36; Status DC Midazolam HCl (Versed) 2 mg STK-MED ONCE .ROUTE ; Start 09/05/16 at 23:51; Stop 09/05/16 at 23:52; Status DC Naloxone HCl (Narcan) 0.4 mg STK-MED ONCE .ROUTE ; Start 09/05/16 at 23:54; Stop 09/05/16 at 23:55; Status DC Iohexol (Omnipaque 300 Mg/ml) 50 ml STK-MED ONCE .ROUTE ; Start 09/05/16 at 23:58 ; Stop 09/05/16 at 23:59; Status DC Iohexol (Omnipaque 300 Mg/ml) 50 ml STK-MED ONCE .ROUTE ; Start 09/06/16 at 00:17 ; Stop 09/06/16 at 00:18; Status DC Midazolam HCl (Versed) 2 mg 1X ONCE IV Last administered on 09/06/16 01:08; Start 09/06/16 at 00:30; Stop 09/06/16 at 00:31; Status DC Iohexol (Omnipaque 300 Mg/ml) 150 ml 1X ONCE IART Last administered on 01:08; Start 09/06/16 at 00:30; Stop 09/06/16 at 00:31; Status DC Fentanyl Citrate (Fentanyl 2ml Vial) 100 mcg STK-MED ONCE .ROUTE ; Start at 00:23; Stop 09/06/16 at 00:24; Status DC Norepinephrine Bitartrate 4 mg 4 mg STK-MED ONCE IV ; Start 09/06/16 at 00:43; Stop 09/06/16 at 00:44; Status DC Dopamine HCl/ Dextrose 250 ml @ As Directed STK-MED ONCE IV ; Start 09/06/16 at 00:53; Stop 09/06/16 at 00:55; Status DC Diphenhydramine HCl (Benadryl) 50 mg STK-MED ONCE .ROUTE ; Start 09/06/16 at 01: 02; Stop 09/06/16 at 01:03; Status DC Fentanyl Citrate (Fentanyl 2ml Vial) 25 mcg 1X ONCE IV Last administered on 01:22; Start 09/06/16 at 01:30; Stop 09/06/16 at 01:31; Status DC Diphenhydramine HCl 25 mg 25 mg 1X ONCE IVP Last administered on 09/06/16 01: 25; Start 09/06/16 at 01:30; Stop 09/06/16 at 01:31; Status DC Norepinephrine Bitartrate 8 mg/ Sodium Chloride 258 ml @ 0 mls/hr 1X ONCE IV Last administered on 09/06/16 01:26; Start 09/06/16 at 01:30; Stop 09/06/16 at 01: 31; Status DC Dopamine HCl/ Dextrose 250 ml @ 9.952 mls/ hr 1X ONCE IV Last administered on 09/06/16 01:22; Start 09/06/16 at 01:15; Stop 09/07/16 at 02:22; Status DC Lidocaine HCl 100 mg 100 mg STK-MED ONCE .ROUTE ; Start 09/06/16 at 03:32; Stop 09/06/16 at 03:33; Status DC Phytonadione 10 mg/Sodium Chloride 51 ml @ 102 mls/hr 1X ONCE IV ; Start at 04:30; Stop 09/06/16 at 08:49; Status DC Magnesium Sulfate/ Dextrose 50 ml @ 25 mls/hr PRN DAILY PRN IV for Mag < 1.7 on am labs; Start 09/06/16 at 06:30 Sodium Chloride 500 ml @ 500 mls/hr PRN QID PRN IV UO< 30cc/hr over previous 6hrs; Start 09/06/16 at 06:30 Phenylephrine HCl/ Sodium Chloride (Miky-Synephrine Inj/Iv Sodium Chloride 0.9% 250ml) 252 ml @ 0 mls/hr CONT PRN IV SEE I/O RECORD; Start 09/06/16 at 08:30 Phytonadione (Vitamin K) 10 mg 1X ONCE SQ Last administered on 09/06/16 09:43 ; Start 09/06/16 at 09:30; Stop 09/06/16 at 09:31; Status DC Pantoprazole Sodium 40 mg 40 mg 1X ONCE IVP Last administered on 09/06/16 09: 44; Start 09/06/16 at 09:30; Stop 09/06/16 at 09:31; Status DC Vasopressin 40 unit/Dextrose 102 ml @ 6 mls/hr CONT PRN IV SEE I/O RECORD Last administered on 09/07/16 06:00; Start 09/06/16 at 10:00 Norepinephrine Bitartrate 8 mg/ Dextrose 258 ml @ 0 mls/hr CONT PRN IV . Last administered on 09/06/16 16:32; Start 09/06/16 at 12:30 Potassium Chloride 50 ml @ 50 mls/hr Q2H IV Last administered on 09/06/16 17:20 ; Start 09/06/16 at 15:00; Stop 09/06/16 at 17:59; Status DC Dextrose 1,000 ml @ 100 mls/hr Q10H IV Last administered on 09/07/16 05:33; Start 09/06/16 at 20:00 Phenylephrine HCl 1 mg 1 mg STK-MED ONCE IV ; Start 09/05/16 at 12:00; Stop at 08:22; Status DC Potassium Chloride (KCl Premix 20meq) 50 ml @ 50 mls/hr Q2H IV Last administered on 09/07/16 10:49; Start 09/07/16 at 10:00; Stop 09/07/16 at 12:59 Active Scripts Active Hydrocodone-Apap 5-325 (Hydrocodone Bit/Acetaminophen) 1 Each Tablet 2 Tab PO PRN Q4HRS PRN Reported Duoneb 0.5-3(2.5) Mg/3 Ml (Albuterol/Ipratropium) 3 Ml Ampul.neb 3 Ml NEB QID PRN Xanax (Alprazolam) 0.5 Mg Tablet 1 Tab PO Q8HRS PRN Senna-Docusate Sodium Tablet (Sennosides/Docusate Sodium) 1 Each Tablet 1 Each PO DAILY Coumadin (Warfarin Sodium) 2.5 Mg Tablet 1 Tab PO DAILY managed by Dr. Ochoa Polyethylene Glycol 3350 255 Gm Powder 17 Gm PO DAILY PRN Proair Hfa (Albuterol Sulfate) 8.5 Gm Hfa.aer.ad Valsartan-Hctz 160-12.5 Mg Tab (Valsartan/Hydrochlorothiazide) 1 Each Tablet 1 Each PO DAILY Combivent Respimat Inhal (Ipratropium/Albuterol Sulfate) 4 Gm Aer.w.adap 2 Inh IH QID Albuterol Sulfate Hfa Inhaler (Albuterol Sulfate) 8.5 Gm Hfa.aer.ad 8.5 Gm IH PRN Vitals/I & O Vital Sign - Last 24 Hours 09/06/16 09/06/16 09/06/16 09/06/16 12:00 12:00 13:00 13:30 Pulse 104 100 Resp 23 23 B/P 108/63 110/66 Pulse Ox 100 100 100 O2 Delivery BiPAP/CPAP Bi-pap BiPAP/CPAP BiPAP/CPAP 09/06/16 09/06/16 09/06/16 09/06/16 14:00 15:00 15:23 16:00 Pulse 102 100 Resp 22 22 B/P 119/71 103/59 Pulse Ox 100 100 100 O2 Delivery BiPAP/CPAP BiPAP/CPAP BiPAP/CPAP Bi-pap 09/06/16 09/06/16 09/06/16 09/06/16 16:00 16:37 17:00 18:00 Temp 98.6 98.6 Pulse 104 105 109 Resp 28 29 34 B/P 115/56 106/54 109/63 Pulse Ox 100 100 100 98 O2 Delivery BiPAP/CPAP BiPAP/CPAP BiPAP/CPAP BiPAP/CPAP 09/06/16 09/06/16 09/06/1609/06/17 18:03 18:50 18:54 19:00 Temp 98.1 98.2 98.6 98.1 98.2 98.6 Pulse 111 111 107 Resp 32 32 27 B/P 109/63 109/63 100/64 Pulse Ox 98 99 O2 Delivery BiPAP/CPAP BiPAP/CPAP O2 Flow Rate 3.0 09/06/09/06/16 09/06/16 09/06/16 19:05 19:12 19:53 19:55 Temp 98.3 98.6 98.6 98.6 98.3 98.6 98.6 98.6 Pulse 112 112 107 107 Resp 36 32 27 31 B/P 91/74 91/71 100/64 100/64 09/06/16 09/06/16 09/06/16 09/06/16 20:00 20:00 20:03 20:10 Temp 98.6 98.5 98.6 98.5 Pulse 103 103 Resp 24 24 B/P 111/69 111/69 Pulse Ox 98 98 O2 Delivery Bi-pap BiPAP/CPAP BiPAP/CPAP O2 Flow Rate 3.0 09/06/16 09/06/16 09/06/16 09/06/16 21:00 21:11 21:14 21:27 Temp 98.5 98.5 98.5 98.5 98.5 98.5 Pulse 104 101 106 103 Resp 27 26 B/P 134/87 136/80 136/80 142/63 Pulse Ox 98 O2 Delivery BiPAP/CPAP O2 Flow Rate 3.0 09/06/16 09/06/16 09/06/16 09/06/16 21:32 21:45 21:47 22:00 Temp 98.5 98.7 98.5 98.7 Pulse 105 108 107 Resp B/P 142/63 136/80 133/75 Pulse Ox 97 97 O2 Delivery BiPAP/CPAP BiPAP/CPAP O2 Flow Rate 3.0 09/06/16 09/06/16 09/06/16 09/06/16 23:00 23:13 23:35 23:59 Temp 98.5 98.5 98.5 98.5 Pulse 107 106 Resp 30 B/P 129/82 129/82 Pulse Ox 98 98 O2 Delivery BiPAP/CPAP BiPAP/CPAP Bi-pap O2 Flow Rate 3.0 09/07/16 09/07/16 09/07/16 09/07/16 00:00 01:00 01:50 02:00 Pulse 108 108 107 Resp 34 33 31 B/P 153/99 146/99 148/77 Pulse Ox 97 98 98 99 O2 Delivery BiPAP/CPAP BiPAP/CPAP BiPAP/CPAP BiPAP/CPAP O2 Flow Rate 3.0 3.0 3.0 09/07/16 09/07/16 09/07/16 09/07/16 03:00 04:00 04:00 04:15 Pulse 104 107 Resp 26 26 B/P 150/76 143/90 Pulse Ox 99 97 97 O2 Delivery BiPAP/CPAP BiPAP/CPAP Bi-pap BiPAP/CPAP O2 Flow Rate 3.0 3.0 09/07/16 09/07/16 09/07/16 09/07/16 05:00 05:40 06:00 07:15 Temp 98.5 98.5 98.4 98.5 98.5 98.4 Pulse 106 108 117 Resp 28 28 27 B/P 151/76 159/82 144/87 Pulse Ox 97 94 94 87 O2 Delivery BiPAP/CPAP BiPAP/CPAP BiPAP/CPAP BiPAP/CPAP 09/07/16 09/07/16 09/07/16 09/07/16 07:40 08:00 08:20 09:06 Pulse 115 117 Resp 26 28 B/P 125/79 142/77 Pulse Ox 92 99 100 O2 Delivery BiPAP/CPAP BiPAP/CPAP Bi-pap BiPAP/CPAP O2 Flow Rate 3.0 09/07/16 09/07/16 09/07/16 09/07/16 10:15 10:52 11:01 11:38 Pulse 117 122 Resp 30 27 B/P 130/76 130/79 Pulse Ox 97 100 100 O2 Delivery BiPAP/CPAP BiPAP/CPAP BiPAP/CPAP Bi-pap O2 Flow Rate 3.0 Intake and Output 09/06/16 09/06/16 09/07/16 15:00 23:00 07:00 Intake Total 350 ml 2072 ml 300 ml Output Total 165 ml 428 ml 315 ml Balance 185 ml 1644 ml -15 ml Problem List Problems Medical Problems: (1) Anemia Status: Acute (2) Hypotension Status: Acute Assessment Acute blood loss anemia- secondary to DU S/P endoscopy with cautery/epi injection and interventional radiology embolization Plan medical therapy with PPI/serial CBCs/transfusional support patient is very poor surgical candidate with co-morbidities TAURUS COOPER MD Sep 07, 2016 11:59
[2016-09-07 12:14] LABS: HEMATOCRIT 30.7 % (36.0-47.0); HEMOGLOBIN 9.9 g/dL (12.0-15.5); RED BLOOD COUNT 3.47 x10^6/uL (3.50-5.40); RED CELL DISTRIBUTION WIDTH 17.3 % (11.5-14.5); WHITE BLOOD COUNT 20.3 x10^3/uL (4.0-11.0)
--- NOTE | 2016-09-07 16:03 | PDOC ---
GENERAL General: still on pressors as of this am when saw with stable H/H. no evidence of further bleeding since angiography and coiling. remains on bi-pap and acidotic, mainly metabolic. Help with all consultants appreciated. discussed in detail with son. , who has dementia, is power of deputy commonwealth's attorney and unable to performs duties required of same. Son is alternate and will discuss with chemical laboratory tester how to change the decisions to himself. Patient has improved to date but still critical. chest with distant bs and less tachycardic this am with rate of 110. Problems: VITAL SIGNS Vital Signs: Vital Signs Date Time Temp Pulse Resp B/P Pulse Ox O2 Delivery O2 Flow Rate FiO2 09/07/16 14:10 99 BiPAP/CPAP 09/07/16 13:58 116 26 119/79 09/07/16 12:53 98.3 98.3 09/07/16 11:38 3.0 I & O I & O Intake and Output 09/07/16 07:00 Intake Total 2722 ml Output Total 908 ml Balance 1814 ml IV Total 530 ml Blood Product IV Normal Saline Flush 1542 ml Other 650 ml Output Urine Total 908 ml ALLERGIES Allergies: Allergies Coded Allergies Type Severity Reaction Last Updated Verified amlodipine Adverse Reaction Intermediate Swelling 09/04/16 Yes MEDS Medications: Current Medications Medications (Trade) Dose Ordered Sig/Chrissie Start Time Stop Time Status Last Admin Dose Admin Albumin Human 100 ml @ 100 mls/hr TID 09/05/16 15:00 09/07/16 08:51 DC 09/06/16 23:20 100 MLS/HR Desmopressin Acetate (Ddavp) 1 mcg BID 09/05/16 15:00 09/06/16 10:13 DC 09/05/16 20:51 1 MCG Dextrose 1,000 ml @ 100 mls/hr Q10H 09/06/16 20:00 09/07/16 05:33 100 MLS/HR Diphenhydramine HCl (Benadryl) 50 mg STK-MED ONCE 09/06/16 01:02 09/06/16 01:03 DC Diphenhydramine HCl 25 mg 25 mg 1X ONCE 09/06/16 01:30 09/06/16 01:31 DC 09/06/16 01:25 25 MG Dopamine HCl/ Dextrose 250 ml @ 9.952 mls/ hr 1X ONCE 09/06/16 01:15 09/07/16 02:22 DC 09/06/16 01:22 9.952 MLS/HR Epinephrine HCl (Adrenalin) 1 mg STK-MED ONCE 09/04/16 12:08 09/04/16 14:25 DC 09/04/16 12:08 0.2 MG Epinephrine HCl (Epinephrine Syringe) 1 mg STK-MED ONCE 09/04/16 12:05 09/04/16 12:06 DC Epinephrine HCl 1 mg 1 mg STK-MED ONCE 09/04/16 12:11 09/04/16 14:25 DC 09/04/16 12:11 0.4 MG Fentanyl Citrate (Fentanyl 2ml Vial) 25 mcg 1X ONCE 09/06/16 01:30 09/06/16 01:31 DC 09/06/16 01:22 25 MCG Gelatin (Gelfoam Size 12-7mm) 1 each STK-MED ONCE 09/05/16 23:35 09/05/16 23:36 DC Heparin Sodium/ Sodium Chloride 1,000 unit 1X ONCE 09/05/16 23:30 09/05/16 23:31 DC 09/05/16 23:46 1,000 UNIT Heparin Sodium/ Sodium Chloride 60 unit 60 unit 1X ONCE 09/04/16 08:45 09/04/16 08:46 DC Iohexol (Omnipaque 300 Mg/ml) 150 ml 1X ONCE 09/06/16 00:30 09/06/16 00:31 DC 09/06/16 01:08 150 ML Lidocaine HCl (Lidocaine Pf 2% Vial) 5 ml STK-MED ONCE 09/04/16 10:58 09/04/16 10:59 DC Lidocaine HCl 100 mg 100 mg STK-MED ONCE 09/06/16 03:32 09/06/16 03:33 DC Lidocaine/Sodium Bicarbonate (Buffered Lidocaine 1%) 20 ml 1X ONCE 09/05/16 23:30 09/05/16 23:31 DC 09/05/16 23:46 20 ML Lidocaine/Sodium Bicarbonate 20 ml 20 ml STK-MED ONCE 09/04/16 08:40 09/04/16 08:41 DC Magnesium Sulfate/ Dextrose 50 ml @ 25 mls/hr PRN DAILY PRN 09/06/16 06:30 Magnesium Sulfate/ Dextrose (Magnesium Sulfate PREMIX 2GM) 50 ml @ 25 mls/hr PRN DAILY PRN 09/05/16 14:30 09/06/16 06:18 DC Midazolam HCl (Versed) 2 mg 1X ONCE 09/06/16 00:30 09/06/16 00:31 DC 09/06/16 01:08 2 MG Morphine Sulfate 2 mg PRN Q4HRS PRN 09/05/16 10:15 09/05/16 16:31 2 MG Naloxone HCl (Narcan) 0.4 mg STK-MED ONCE 09/05/16 23:54 09/05/16 23:55 DC Norepinephrine Bitartrate (Levophed Vial) 4 mg STK-MED ONCE 09/06/16 00:43 09/06/16 00:44 DC Norepinephrine Bitartrate 8 mg/ Dextrose 258 ml @ 0 mls/hr CONT PRN 09/06/16 12:30 09/06/16 16:32 9.4 MLS/HR Norepinephrine Bitartrate 8 mg/ Sodium Chloride 258 ml @ 0 mls/hr 1X ONCE 09/06/16 01:30 09/06/16 01:31 DC 09/06/16 01:26 58.05 MLS/HR Norepinephrine Bitartrate/Sodium Chloride (Levophed Vial/ Iv Sodium Chloride 0.9% 250ml) 258 ml @ 0 mls/hr CONT PRN 09/04/16 03:30 09/06/16 12:24 DC 09/06/16 01:24 58.05 MLS/HR Pantoprazole Sodium (Protonix Vial) 40 mg 1X ONCE 09/04/16 04:00 09/04/16 04:01 DC 09/04/16 04:06 40 MG Pantoprazole Sodium 40 mg 40 mg 1X ONCE 09/06/16 09:30 09/06/16 09:31 DC 09/06/16 09:44 40 MG Pantoprazole Sodium 80 mg/ Sodium Chloride 100 ml @ 10 mls/hr Q10H 09/04/16 08:45 UNV Pantoprazole Sodium/Sodium Chloride (Protonix Iv/Iv Sodium Chloride 0.9% 100ml) 100 ml @ 10 mls/hr Q10H 09/04/16 08:45 09/07/16 05:33 10 MLS/HR Phenylephrine HCl 1 mg 1 mg STK-MED ONCE 09/05/16 12:00 09/07/16 08:22 DC Phenylephrine HCl/ Sodium Chloride (Miky-Synephrine Inj/Iv Sodium Chloride 0.9% 250ml) 252 ml @ 0 mls/hr CONT PRN 09/06/16 08:30 Phytonadione (Vitamin K) 10 mg 1X ONCE 09/06/16 09:30 09/06/16 09:31 DC 09/06/16 09:43 10 MG Phytonadione 10 mg/Sodium Chloride 51 ml @ 102 mls/hr 1X ONCE 09/06/16 04:30 09/06/16 08:49 DC Piperacillin Sod/ Tazobactam Sod 3.375 gm/Sodium Chloride 50 ml @ 100 mls/hr Q6HRS 09/03/16 20:00 09/07/16 13:36 100 MLS/HR Potassium Chloride (KCl Premix 20meq) 50 ml @ 50 mls/hr Q2H 09/07/16 10:00 09/07/16 12:59 DC 09/07/16 10:49 50 MLS/HR Propofol (Diprivan) 40 ml @ As Directed STK-MED ONCE 09/04/16 10:58 09/04/16 10:59 DC Sodium Bicarbonate 50 meq 50 meq Q6HRS 09/05/16 18:00 09/07/16 08:51 DC 09/07/16 06:10 50 MEQ Sodium Bicarbonate/ Sodium Chloride (Iv Sodium Chloride 0.45%) 1,050 ml @ 125 mls/hr Q8H24M 09/05/16 09:30 09/05/16 14:28 DC 09/05/16 09:06 125 MLS/HR Sodium Chloride 500 ml @ 500 mls/hr PRN QID PRN 09/06/16 06:30 Vancomycin HCl 1 gm/Sodium Chloride 250 ml @ 250 mls/hr 1X ONCE 09/03/16 20:00 09/03/16 20:59 DC 09/03/16 20:08 250 MLS/HR Vasopressin 40 unit/Dextrose 102 ml @ 6 mls/hr CONT PRN 09/06/16 10:00 09/07/16 06:00 6 MLS/HR LAB Lab: Laboratory Tests Test 09/06/16 17:06 09/06/16 23:25 09/06/16 23:30 09/06/16 23:55 Sodium Level 162mmol/L (136-145) 161mmol/L (136-145) Potassium Level 3.3mmol/L (3.5-5.1) 3.5mmol/L (3.5-5.1) Chloride Level 124mmol/L (98-107) 123mmol/L (98-107) Carbon Dioxide Level 26mmol/L (21-32) 28mmol/L (21-32) Anion Gap 12 (6-14) 10 (6-14) Blood Urea Nitrogen 54mg/dL (7-20) 53mg/dL (7-20) Creatinine 1.3mg/dL (0.6-1.0) 1.3mg/dL (0.6-1.0) Estimated GFR (Cockcroft-Gault) 40.7 40.7 Glucose Level 129mg/dL (70-99) 182mg/dL (70-99) Calcium Level 8.2mg/dL (8.5-10.1) 8.3mg/dL (8.5-10.1) White Blood Count 12.3x10^3/uL (4.0-11.0) Red Blood Count 3.25x10^6/uL (3.50-5.40) Hemoglobin 9.5g/dL (12.0-15.5) Hematocrit 28.5% (36.0-47.0) Mean Corpuscular Volume 88fL (79-100) Mean Corpuscular Hemoglobin 29pg (25-35) Mean Corpuscular Hemoglobin Concent 33g/dL (31-37) Red Cell Distribution Width 17.7% (11.5-14.5) Platelet Count 139x10^3/uL (140-400) Prothrombin Time 13.8SEC (11.7-14.0) Prothromb Time International Ratio 1.1 (0.8-1.1) Test 09/07/16 05:15 09/07/16 08:00 09/07/16 12:00 White Blood Count 14.3x10^3/uL (4.0-11.0) 20.3x10^3/uL (4.0-11.0) Red Blood Count 3.32x10^6/uL (3.50-5.40) 3.47x10^6/uL (3.50-5.40) Hemoglobin 9.6g/dL (12.0-15.5) 9.9g/dL (12.0-15.5) Hematocrit 29.3% (36.0-47.0) 30.7% (36.0-47.0) Mean Corpuscular Volume 88fL (79-100) 89fL (79-100) Mean Corpuscular Hemoglobin 29pg (25-35) 29pg (25-35) Mean Corpuscular Hemoglobin Concent 33g/dL (31-37) 32g/dL (31-37) Red Cell Distribution Width 17.3% (11.5-14.5) 17.3% (11.5-14.5) Platelet Count 138x10^3/uL (140-400) 152x10^3/uL (140-400) Neutrophils (%) (Auto) 87% (31-73) Lymphocytes (%) (Auto) 3% (24-48) Monocytes (%) (Auto) 9% (0-9) Eosinophils (%) (Auto) 0% (0-3) Basophils (%) (Auto) 0% (0-3) Neutrophils # (Auto) 12.5x10^3uL (1.8-7.7) Lymphocytes # (Auto) 0.5x10^3/uL (1.0-4.8) Monocytes # (Auto) 1.3x10^3/uL (0.0-1.1) Eosinophils # (Auto) 0.0x10^3/uL (0.0-0.7) Basophils # (Auto) 0.0x10^3/uL (0.0-0.2) Sodium Level 160mmol/L (136-145) Potassium Level 3.4mmol/L (3.5-5.1) 4.3mmol/L (3.5-5.1) Chloride Level 122mmol/L (98-107) Carbon Dioxide Level 28mmol/L (21-32) Anion Gap 10 (6-14) Blood Urea Nitrogen 49mg/dL (7-20) Creatinine 1.3mg/dL (0.6-1.0) Estimated GFR (Cockcroft-Gault) 40.7 Glucose Level 184mg/dL (70-99) Calcium Level 8.3mg/dL (8.5-10.1) Phosphorus Level 4.2mg/dL (2.6-4.7) Magnesium Level 1.9mg/dL (1.8-2.4) 1.9mg/dL (1.8-2.4) Albumin 3.9g/dL (3.4-5.0) O2 Saturation 88% (92-99) Arterial Blood pH 7.21 (7.35-7.45) Arterial Blood pCO2 at Patient Temp 69mmHg (35-46) Arterial Blood pO2 at Patient Temp 59mmHg (65-108) Arterial Blood HCO3 27mmol/L (21-28) Arterial Blood Base Excess -2mmol/L (-3-3) FiO2 35% JAMIN EVANS MD Sep 07, 2016 16:03
[2016-09-08] VITALS (24 sets, daily range): BP systolic 93–163; BP diastolic 62–103
[2016-09-08] MEDS: PIPERACILLIN/TAZOBACTAM 3.375 GM in IV NORMAL SALINE 50ML 50 ML IV SCH ×2 (00:28→05:26)
[2016-09-08] MEDS: IV DEXTROSE 5% 1,000 ML IV SCH ×3 (01:39→22:46)
--- NOTE | 2016-09-08 02:41 | CONS ---
DATE OF CONSULTATION: 09/07/2016 ATTENDING PHYSICIAN: Carmelo Ochoa M.D. REASON FOR CONSULTATION: The patient is seen in pulmonary consultation at the request of Dr. Ochoa for acute on chronic hypoxemic hypercapnic respiratory failure requiring noninvasive ventilation. HISTORY OF PRESENT ILLNESS: The patient is a 70-year-old who was admitted on 09/03/2016. She initially presented with clinical diagnosis of acute blood loss anemia. She underwent EGD with injection of epinephrine and cautery of a vessel. She had multiple duodenal ulcers in the posterior wall, second portion. She had one visible vessel that was bleeding at that time. The patient was treated with the above and subsequently had some respiratory distress. She is normally on BiPAP at home. She has severe COPD. Her clinical status is not improved over the last several days. I was asked to see her in consultation. During my evaluation, she was actually very lethargic and not responding to any verbal commands. Yesterday, she had a pH of 7.19 with a PaCO2 of 49. Today, her pH is 7.21 with a PaCO2 of 69, pO2 of 59. Hemoglobin has been stable. The patient is currently not able to provide additional information. PAST MEDICAL HISTORY: 1. Remarkable for recent diagnosis of acute blood loss anemia secondary to multiple duodenal ulcers. 2. Recent left hip surgery with wound drainage. This was performed within the last month. 3. Hyponatremia. 4. Hypertension. 5. Renal insufficiency. 6. Anxiety disorder. PAST SURGICAL HISTORY: As above. ALLERGIES: TO AMLODIPINE. MEDICATIONS: List was reviewed. Please see the MRAD. REVIEW OF SYSTEMS: Unobtainable secondary to the patient's condition. PHYSICAL EXAMINATION: GENERAL: The patient was encephalopathic. She was on BiPAP. Arterial blood gas as indicated above. VITAL SIGNS: She is afebrile. HEENT: Eyes, the sclerae were nonicteric. NECK: Jugular venous distention was not elevated. No lymphadenopathy. CHEST: Full expansion. LUNGS: Poor airway flow with no wheezes. CARDIOVASCULAR: Regular rate and rhythm with S1, S2, no S3. ABDOMEN: Soft, nontender, nondistended. EXTREMITIES: No clubbing, cyanosis, some edema. NEUROLOGIC: The patient was encephalopathic. LABORATORY DATA: Reviewed. White count was noted to be elevated. Arterial blood gas as indicated above. INR was 1.1. Electrolytes were in the range. Sodium was high at 160. Chest x-ray was reviewed. There are no acute infiltrates. IMPRESSION: 1. Acute on chronic respiratory failure, multifactorial. 2. Metabolic toxic encephalopathy. 3. Renal insufficiency. 4. Recent gastrointestinal bleed, status post cauterization on 09/04/2016 for duodenal ulcers. 5. Status post emergent arteriogram with embolization on 09/05/2016. 6. Lactic acidosis secondary to hypoperfusion and GI bleed along with infection. 7. Respiratory metabolic acidosis. 8. Hypotension, possible sepsis. PLAN: 1. Continue current support with BiPAP. 2. IV fluids. 3. IV antibiotics. 4. Pressors. 5. IV Protonix. Overall, the patient's condition is poor. I do not think that she will do well. She may not survive this particular admission. I have had discussions with her in the past. She has been a patient of mine for quite some time. She has indicated to me that if multiple physicians on the case concluded that the possibility of meaningful recovery was basically zero, she would not want to be intubated, if she does get intubated she would not want to be on prolonged mechanical support more than 3-5 days. I do appreciate the privilege in sharing in the patient's care. Total cumulative critical care time of 40 minutes. GINO CORBIN MD DR: ANTONIO/marni JOB#: [id number] / [id number]
[2016-09-08] MEDS: PANTOPRAZOLE SODIUM IV 80 MG in IV NORMAL SALINE 100ML 100 ML IV SCH ×3 (05:26→21:42)
[2016-09-08 06:03] LABS: ALBUMIN 3.2 g/dL (3.4-5.0); CALCIUM 8.3 mg/dL (8.5-10.1); CREATININE 1.1 mg/dL (0.6-1.0); GFR 49.4; PHOSPHORUS 2.9 mg/dL (2.6-4.7); POTASSIUM 3.5 mmol/L (3.5-5.1)
--- NOTE | 2016-09-08 08:08 | PDOC ---
Infectious Disease Note Subjective Subjective On BiPAP Not responsive ROS ROS Unobtainable Vital Sign Vital Signs Vital Signs Date Time Temp Pulse Resp B/P Pulse Ox O2 Delivery O2 Flow Rate FiO2 09/08/16 07:50 100 BiPAP/CPAP 09/08/16 07:00 99.0 100 24 93/62 99.0 09/07/16 16:03 3.0 Physical Exam PHYSICAL EXAM GENERAL: On BiPAP HEENT: PERRL NECK: Supple LUNGS: Clear HEART: S1S2, no gallop, no murmur ABD: BS present, mild firm, tender to light palpation Verma EXT: UE edema. Left lateral hip incision well-approx. rosy, Some serous sanguinous drainage. No redness - [employer]: Sleepy, SKIN: No rash. BLE, warm IV Right neck clean. Labs Lab Laboratory Tests Test 09/07/16 12:00 09/08/16 05:15 White Blood Count 20.3x10^3/uL (4.0-11.0) Red Blood Count 3.47x10^6/uL (3.50-5.40) Hemoglobin 9.9g/dL (12.0-15.5) Hematocrit 30.7% (36.0-47.0) Mean Corpuscular Volume 89fL (79-100) Mean Corpuscular Hemoglobin 29pg (25-35) Mean Corpuscular Hemoglobin Concent 32g/dL (31-37) Red Cell Distribution Width 17.3% (11.5-14.5) Platelet Count 152x10^3/uL (140-400) Potassium Level 4.3mmol/L (3.5-5.1) 3.5mmol/L (3.5-5.1) Magnesium Level 1.9mg/dL (1.8-2.4) 2.0mg/dL (1.8-2.4) Sodium Level 161mmol/L (136-145) Chloride Level 124mmol/L (98-107) Carbon Dioxide Level 30mmol/L (21-32) Anion Gap 7 (6-14) Blood Urea Nitrogen 35mg/dL (7-20) Creatinine 1.1mg/dL (0.6-1.0) Estimated GFR (Cockcroft-Gault) 49.4 Glucose Level 132mg/dL (70-99) Calcium Level 8.3mg/dL (8.5-10.1) Phosphorus Level 2.9mg/dL (2.6-4.7) Albumin 3.2g/dL (3.4-5.0) Objective Assessment Fever Leukocytosis Encephalopathy Hypernatremia GI bleed/Erosive gastritis & duodenal ulcers. s/p cauterization, 09/04 s/p PRBCs and emergent arteriogram-embolization w/ coiling 09/05 Anemia. s/p PRBCs times 3 Lactic acidosis likely sec to GI bleed and hypoperfusion, infection possible, less likely Minor drainage at Left hip surgery site Respiratory insufficiency on BiPAP Plan Plan of Care Blood cults times 2 Begin Vanc/Fluconazole - adjust for renal function cont Zosyn for now Lactic acid/Procalcitonin this am labs in am supportive care ? overall prognosis JUAN ANTONIO PERRIN MD Sep 08, 2016 08:08
[2016-09-08] MEDS: FLUCONAZOLE 200MG/100ML PREMIX 100 ML IV SCH (08:54)
[2016-09-08] MEDS ORDERED: VANCOMYCIN 1.5 GM in IV NORMAL SALINE 500ML BAG 500 ML IV ONE (09:00)
[2016-09-08] MEDS ORDERED: VANCOMYCIN 1.5 GM in IV DEXTROSE 5% 500 ML IV ONE (09:00)
[2016-09-08 09:20] LABS: HCO3 ABG 26 mmol/L (21-28); PCO2 ABG 55 mmHg (35-46); PO2 ABG 70 mmHg (65-108); SAT O2 ABG 94 % (92-99)
[2016-09-08 09:21] LABS: FIO2 ABG 40
--- NOTE | 2016-09-08 09:55 | PDOC ---
SUBJECTIVE ROS ^Na and DARYL Appears to be rel confused, remains on the BiPAP Unable to reliably get ROS OBJECTIVE Vital Signs Vital Signs Date Time Temp Pulse Resp B/P Pulse Ox O2 Delivery O2 Flow Rate FiO2 09/08/16 09:16 96 BiPAP/CPAP 09/08/16 09:00 98 24 95/65 09/08/16 07:51 3.0 09/08/16 07:00 99.0 99.0 I & 0 Intake and Output 09/08/16 07:00 Intake Total 4064 ml Output Total 985 ml Balance 3079 ml Intake Oral 0 ml IV Total 2622 ml Other 1442 ml Output Urine Total 985 ml # Bowel Movements 1 PHYSICAL EXAM Physical Exam GEN: barely arousable, Oriented x 0, confused, In mod resp distress while on BiPAP EYES: Sclera anicteric , Conjunctiva Normal EN: No EN Drainage, Mucous Membranes dryish on BiPAP NECK: no JVD, no JVP, Supple, no Thyromegaly CVS: S1S2, no Murmur, No Gallop, No Rub,+ Edema RESP: + Rales, no Rhonchi,min Acc. Muscle Use GI: BS + ve, NO Bruit, Non Tender, Non Distended : no CVA tenderness, no Suprapubic Tenderness Assessment & Plan ^Na - watch trend - on IV D5W; DDAVP was ordered, but will hold for now since UO is still marginal ? DARYL - due to prolonged Hypotension. Cannot R/o ATn, UO is improving IVF Bolus prn since UO is marginal HypoTension - just off of Pressors. edema unclear etio; IV ALB once Na corrects. SUspect RHF vs Liver etio Low K off oand on - Sliding scale K as ordered, mag is OK today COMMENT/RELEVANT DATA Meds Current Medications Medications (Trade) Dose Ordered Sig/Chrissie Start Time Stop Time Status Last Admin Dose Admin Albumin Human 100 ml @ 100 mls/hr TID 09/05/16 15:00 09/07/16 08:51 DC 09/06/16 23:20 100 MLS/HR Cefepime HCl 1 gm/ Sodium Chloride 50 ml @ 100 mls/hr Q8HRS 09/08/16 14:00 09/08/16 14:00 DC Cefepime HCl/ Dextrose (Maxipime) 100 ml @ 200 mls/hr Q8HRS 09/08/16 14:00 Desmopressin Acetate (Ddavp) 1 mcg BID 09/05/16 15:00 09/06/16 10:13 DC 09/05/16 20:51 1 MCG Dextrose 1,000 ml @ 100 mls/hr Q10H 09/06/16 20:00 09/08/16 01:39 100 MLS/HR Diphenhydramine HCl (Benadryl) 50 mg STK-MED ONCE 09/06/16 01:02 09/06/16 01:03 DC Diphenhydramine HCl 25 mg 25 mg 1X ONCE 09/06/16 01:30 09/06/16 01:31 DC 09/06/16 01:25 25 MG Dopamine HCl/ Dextrose 250 ml @ 9.952 mls/ hr 1X ONCE 09/06/16 01:15 09/07/16 02:22 DC 09/06/16 01:22 9.952 MLS/HR Epinephrine HCl (Adrenalin) 1 mg STK-MED ONCE 09/04/16 12:08 09/04/16 14:25 DC 09/04/16 12:08 0.2 MG Epinephrine HCl (Epinephrine Syringe) 1 mg STK-MED ONCE 09/04/16 12:05 09/04/16 12:06 DC Epinephrine HCl 1 mg 1 mg STK-MED ONCE 09/04/16 12:11 09/04/16 14:25 DC 09/04/16 12:11 0.4 MG Fentanyl Citrate (Fentanyl 2ml Vial) 25 mcg 1X ONCE 09/06/16 01:30 09/06/16 01:31 DC 09/06/16 01:22 25 MCG Fluconazole/ Sodium Chloride (Diflucan 200mg/ 100ml Premix) 100 ml @ 100 mls/hr Q24H 09/08/16 09:00 09/08/16 08:54 100 MLS/HR Gelatin (Gelfoam Size 12-7mm) 1 each STK-MED ONCE 09/05/16 23:35 09/05/16 23:36 DC Heparin Sodium/ Sodium Chloride 1,000 unit 1X ONCE 09/05/16 23:30 09/05/16 23:31 DC 09/05/16 23:46 1,000 UNIT Heparin Sodium/ Sodium Chloride 60 unit 60 unit 1X ONCE 09/04/16 08:45 09/04/16 08:46 DC Iohexol (Omnipaque 300 Mg/ml) 150 ml 1X ONCE 09/06/16 00:30 09/06/16 00:31 DC 09/06/16 01:08 150 ML Lidocaine HCl (Lidocaine Pf 2% Vial) 5 ml STK-MED ONCE 09/04/16 10:58 09/04/16 10:59 DC Lidocaine HCl 100 mg 100 mg STK-MED ONCE 09/06/16 03:32 09/06/16 03:33 DC Lidocaine/Sodium Bicarbonate (Buffered Lidocaine 1%) 20 ml 1X ONCE 09/05/16 23:30 09/05/16 23:31 DC 09/05/16 23:46 20 ML Lidocaine/Sodium Bicarbonate 20 ml 20 ml STK-MED ONCE 09/04/16 08:40 09/04/16 08:41 DC Magnesium Sulfate/ Dextrose 50 ml @ 25 mls/hr PRN DAILY PRN 09/06/16 06:30 Midazolam HCl (Versed) 2 mg 1X ONCE 09/06/16 00:30 09/06/16 00:31 DC 09/06/16 01:08 2 MG Morphine Sulfate 2 mg PRN Q4HRS PRN 09/05/16 10:15 09/05/16 16:31 2 MG Naloxone HCl (Narcan) 0.4 mg STK-MED ONCE 09/05/16 23:54 09/05/16 23:55 DC Norepinephrine Bitartrate (Levophed Vial) 4 mg STK-MED ONCE 09/06/16 00:43 09/06/16 00:44 DC Norepinephrine Bitartrate 8 mg/ Dextrose 258 ml @ 0 mls/hr CONT PRN 09/06/16 12:30 09/06/16 16:32 9.4 MLS/HR Norepinephrine Bitartrate 8 mg/ Sodium Chloride 258 ml @ 0 mls/hr 1X ONCE 09/06/16 01:30 09/06/16 01:31 DC 09/06/16 01:26 58.05 MLS/HR Norepinephrine Bitartrate/Sodium Chloride (Levophed Vial/ Iv Sodium Chloride 0.9% 250ml) 258 ml @ 0 mls/hr CONT PRN 09/04/16 03:30 09/06/16 12:24 DC 09/06/16 01:24 58.05 MLS/HR Pantoprazole Sodium (Protonix Vial) 40 mg 1X ONCE 09/04/16 04:00 09/04/16 04:01 DC 09/04/16 04:06 40 MG Pantoprazole Sodium 40 mg 40 mg 1X ONCE 09/06/16 09:30 09/06/16 09:31 DC 09/06/16 09:44 40 MG Pantoprazole Sodium 80 mg/ Sodium Chloride 100 ml @ 10 mls/hr Q10H 09/04/16 08:45 UNV Pantoprazole Sodium/Sodium Chloride (Protonix Iv/Iv Sodium Chloride 0.9% 100ml) 100 ml @ 10 mls/hr Q10H 09/04/16 08:45 09/08/16 05:26 10 MLS/HR Phenylephrine HCl 1 mg 1 mg STK-MED ONCE 09/05/16 12:00 09/07/16 08:22 DC Phenylephrine HCl/ Sodium Chloride (Miky-Synephrine Inj/Iv Sodium Chloride 0.9% 250ml) 252 ml @ 0 mls/hr CONT PRN 09/06/16 08:30 Phytonadione (Vitamin K) 10 mg 1X ONCE 09/06/16 09:30 09/06/16 09:31 DC 09/06/16 09:43 10 MG Phytonadione 10 mg/Sodium Chloride 51 ml @ 102 mls/hr 1X ONCE 09/06/16 04:30 09/06/16 08:49 DC Piperacillin Sod/ Tazobactam Sod 3.375 gm/Sodium Chloride 50 ml @ 100 mls/hr Q6HRS 09/03/16 20:00 09/08/16 08:31 DC 09/08/16 05:26 100 MLS/HR Potassium Chloride 50 ml @ 50 mls/hr Q2H 09/07/16 10:00 09/07/16 12:59 DC 09/07/16 10:49 50 MLS/HR Potassium Chloride (KCl Premix 20meq) 50 ml @ 50 mls/hr PRN Q2HR PRN 09/05/16 14:30 Propofol (Diprivan) 40 ml @ As Directed STK-MED ONCE 09/04/16 10:58 09/04/16 10:59 DC Sodium Bicarbonate 50 meq 50 meq Q6HRS 09/05/16 18:00 09/07/16 08:51 DC 09/07/16 06:10 50 MEQ Sodium Bicarbonate/ Sodium Chloride (Iv Sodium Chloride 0.45%) 1,050 ml @ 125 mls/hr Q8H24M 09/05/16 09:30 09/05/16 14:28 DC 09/05/16 09:06 125 MLS/HR Sodium Chloride 500 ml @ 500 mls/hr PRN QID PRN 09/06/16 06:30 Vancomycin HCl 1.5 gm/Dextrose 500 ml @ 250 mls/hr 1X ONCE 09/08/16 09:00 09/08/16 10:59 09/08/16 09:29 250 MLS/HR Vancomycin HCl 1.5 gm/Sodium Chloride 500 ml @ 250 mls/hr 1X ONCE 09/08/16 09:00 09/08/16 09:00 DC Vancomycin HCl 1 each 1 each PRN DAILY PRN 09/08/16 08:00 Vancomycin HCl 1 gm/Sodium Chloride 250 ml @ 250 mls/hr 1X ONCE 09/03/16 20:00 09/03/16 20:59 DC 09/03/16 20:08 250 MLS/HR Vasopressin 40 unit/Dextrose 102 ml @ 6 mls/hr CONT PRN 09/06/16 10:00 09/07/16 06:00 6 MLS/HR Lab Laboratory Tests Test 09/07/16 12:00 09/08/16 05:15 09/08/16 08:00 09/08/16 08:30 White Blood Count 20.3x10^3/uL (4.0-11.0) Red Blood Count 3.47x10^6/uL (3.50-5.40) Hemoglobin 9.9g/dL (12.0-15.5) Hematocrit 30.7% (36.0-47.0) Mean Corpuscular Volume 89fL (79-100) Mean Corpuscular Hemoglobin 29pg (25-35) Mean Corpuscular Hemoglobin Concent 32g/dL (31-37) Red Cell Distribution Width 17.3% (11.5-14.5) Platelet Count 152x10^3/uL (140-400) Potassium Level 4.3mmol/L (3.5-5.1) 3.5mmol/L (3.5-5.1) Magnesium Level 1.9mg/dL (1.8-2.4) 2.0mg/dL (1.8-2.4) Sodium Level 161mmol/L (136-145) Chloride Level 124mmol/L (98-107) Carbon Dioxide Level 30mmol/L (21-32) Anion Gap 7 (6-14) Blood Urea Nitrogen 35mg/dL (7-20) Creatinine 1.1mg/dL (0.6-1.0) Estimated GFR (Cockcroft-Gault) 49.4 Glucose Level 132mg/dL (70-99) Calcium Level 8.3mg/dL (8.5-10.1) Phosphorus Level 2.9mg/dL (2.6-4.7) Albumin 3.2g/dL (3.4-5.0) O2 Saturation 94% (92-99) Arterial Blood pH 7.30 (7.35-7.45) Arterial Blood pCO2 at Patient Temp 55mmHg (35-46) Arterial Blood pO2 at Patient Temp 70mmHg (65-108) Arterial Blood HCO3 26mmol/L (21-28) Arterial Blood Base Excess -1mmol/L (-3-3) FiO2 40 Lactic Acid Level 0.8mmol/L (0.4-2.0) Procalcitonin 1.72ng/mL (0.00-0.10) TARUN HUSTON MD Sep 08, 2016 09:55
--- NOTE | 2016-09-08 10:16 | PDOC ---
PROGRESS NOTES Subjective Subjective Pt drowsy, arousable. Pt on BiPap, so communication limited. Objective Objective Pt drowsy, easily aroused and able to follow simple commands. Pt on BiPap. Heart with RRR. No murmurs. No pedal edema. Abdomen soft, nondistended, and nontender. Vital Signs Date Time Temp Pulse Resp B/P Pulse Ox O2 Delivery O2 Flow Rate FiO2 09/08/16 09:16 96 BiPAP/CPAP 09/08/16 09:00 98 24 95/65 09/08/16 07:51 3.0 09/08/16 07:00 99.0 99.0 Intake and Output 09/08/16 07:00 Intake Total 4064 ml Output Total 985 ml Balance 3079 ml Intake Oral 0 ml IV Total 2622 ml Other 1442 ml Output Urine Total 985 ml # Bowel Movements 1 Assessment Assessment Problems Medical Problems: (1) Anemia Status: Acute (2) Hypotension Status: Acute Plan Plan of Care 1. GI bleed from large ulcer -s/p cauterization, 09/04 -emergent arteriogram-embolization w/ coiling 09/05 -PRBC x3 -Hgb 9.9 this am -GI and surgery team following: monitoring at this time as pt is a poor surgical candidate based on comorbidities -on PP 2. Acute Renal Failure with hypernatremia -Creat 1.1 upon admission, 1.1 this am -Na 142 upon admission, 161 this am -Renal team following -IVF 3. Leukocytosis -ID team consulting -Original blood cxs negative, repeat ordered 09/07 -UA negative -Vanc and Fluconazole 4. Hypotension -Now off of pressors 5. Lactic acidosis likely to GI bleed and hypoperfusion 6. Status post fixation of a left femoral neck fracture and subsequent reinjury below with repeat surgery -Ortho consulting -Minor serous drainage present from incision site Comment Review of Relevant I have reviewed the following items pako (where applicable) has been applied. Labs Laboratory Tests Test 09/06/16 11:20 09/06/16 14:15 09/06/16 15:25 09/06/16 17:06 White Blood Count 21.1x10^3/uL (4.0-11.0) 13.0x10^3/uL (4.0-11.0) Red Blood Count 3.26x10^6/uL (3.50-5.40) 2.79x10^6/uL (3.50-5.40) Hemoglobin 9.0g/dL (12.0-15.5) 7.8g/dL (12.0-15.5) Hematocrit 27.9% (36.0-47.0) 23.3% (36.0-47.0) Mean Corpuscular Volume 86fL (79-100) 83fL (79-100) Mean Corpuscular Hemoglobin 28pg (25-35) 28pg (25-35) Mean Corpuscular Hemoglobin Concent 32g/dL (31-37) 34g/dL (31-37) Red Cell Distribution Width 16.2% (11.5-14.5) 16.2% (11.5-14.5) Platelet Count 170x10^3/uL (140-400) 119x10^3/uL (140-400) Potassium Level 3.1mmol/L (3.5-5.1) 3.3mmol/L (3.5-5.1) Prothrombin Time 16.9SEC (11.7-14.0) Prothromb Time International Ratio 1.5 (0.8-1.1) Sodium Level 162mmol/L (136-145) Chloride Level 124mmol/L (98-107) Carbon Dioxide Level 26mmol/L (21-32) Anion Gap 12 (6-14) Blood Urea Nitrogen 54mg/dL (7-20) Creatinine 1.3mg/dL (0.6-1.0) Estimated GFR (Cockcroft-Gault) 40.7 Glucose Level 129mg/dL (70-99) Calcium Level 8.2mg/dL (8.5-10.1) Test 09/06/16 23:25 09/06/16 23:30 09/06/16 23:55 09/07/16 05:15 White Blood Count 12.3x10^3/uL (4.0-11.0) 14.3x10^3/uL (4.0-11.0) Red Blood Count 3.25x10^6/uL (3.50-5.40) 3.32x10^6/uL (3.50-5.40) Hemoglobin 9.5g/dL (12.0-15.5) 9.6g/dL (12.0-15.5) Hematocrit 28.5% (36.0-47.0) 29.3% (36.0-47.0) Mean Corpuscular Volume 88fL (79-100) 88fL (79-100) Mean Corpuscular Hemoglobin 29pg (25-35) 29pg (25-35) Mean Corpuscular Hemoglobin Concent 33g/dL (31-37) 33g/dL (31-37) Red Cell Distribution Width 17.7% (11.5-14.5) 17.3% (11.5-14.5) Platelet Count 139x10^3/uL (140-400) 138x10^3/uL (140-400) Prothrombin Time 13.8SEC (11.7-14.0) Prothromb Time International Ratio 1.1 (0.8-1.1) Sodium Level 161mmol/L (136-145) 160mmol/L (136-145) Potassium Level 3.5mmol/L (3.5-5.1) 3.4mmol/L (3.5-5.1) Chloride Level 123mmol/L (98-107) 122mmol/L (98-107) Carbon Dioxide Level 28mmol/L (21-32) 28mmol/L (21-32) Anion Gap 10 (6-14) 10 (6-14) Blood Urea Nitrogen 53mg/dL (7-20) 49mg/dL (7-20) Creatinine 1.3mg/dL (0.6-1.0) 1.3mg/dL (0.6-1.0) Estimated GFR (Cockcroft-Gault) 40.7 40.7 Glucose Level 182mg/dL (70-99) 184mg/dL (70-99) Calcium Level 8.3mg/dL (8.5-10.1) 8.3mg/dL (8.5-10.1) Neutrophils (%) (Auto) 87% (31-73) Lymphocytes (%) (Auto) 3% (24-48) Monocytes (%) (Auto) 9% (0-9) Eosinophils (%) (Auto) 0% (0-3) Basophils (%) (Auto) 0% (0-3) Neutrophils # (Auto) 12.5x10^3uL (1.8-7.7) Lymphocytes # (Auto) 0.5x10^3/uL (1.0-4.8) Monocytes # (Auto) 1.3x10^3/uL (0.0-1.1) Eosinophils # (Auto) 0.0x10^3/uL (0.0-0.7) Basophils # (Auto) 0.0x10^3/uL (0.0-0.2) Phosphorus Level 4.2mg/dL (2.6-4.7) Magnesium Level 1.9mg/dL (1.8-2.4) Albumin 3.9g/dL (3.4-5.0) Test 09/07/16 08:00 09/07/16 12:00 09/08/16 05:15 09/08/16 08:00 O2 Saturation 88% (92-99) 94% (92-99) Arterial Blood pH 7.21 (7.35-7.45) 7.30 (7.35-7.45) Arterial Blood pCO2 at Patient Temp 69mmHg (35-46) 55mmHg (35-46) Arterial Blood pO2 at Patient Temp 59mmHg (65-108) 70mmHg (65-108) Arterial Blood HCO3 27mmol/L (21-28) 26mmol/L (21-28) Arterial Blood Base Excess -2mmol/L (-3-3) -1mmol/L (-3-3) FiO2 35% 40 White Blood Count 20.3x10^3/uL (4.0-11.0) Red Blood Count 3.47x10^6/uL (3.50-5.40) Hemoglobin 9.9g/dL (12.0-15.5) Hematocrit 30.7% (36.0-47.0) Mean Corpuscular Volume 89fL (79-100) Mean Corpuscular Hemoglobin 29pg (25-35) Mean Corpuscular Hemoglobin Concent 32g/dL (31-37) Red Cell Distribution Width 17.3% (11.5-14.5) Platelet Count 152x10^3/uL (140-400) Potassium Level 4.3mmol/L (3.5-5.1) 3.5mmol/L (3.5-5.1) Magnesium Level 1.9mg/dL (1.8-2.4) 2.0mg/dL (1.8-2.4) Sodium Level 161mmol/L (136-145) Chloride Level 124mmol/L (98-107) Carbon Dioxide Level 30mmol/L (21-32) Anion Gap 7 (6-14) Blood Urea Nitrogen 35mg/dL (7-20) Creatinine 1.1mg/dL (0.6-1.0) Estimated GFR (Cockcroft-Gault) 49.4 Glucose Level 132mg/dL (70-99) Calcium Level 8.3mg/dL (8.5-10.1) Phosphorus Level 2.9mg/dL (2.6-4.7) Albumin 3.2g/dL (3.4-5.0) Test 09/08/16 08:30 Lactic Acid Level 0.8mmol/L (0.4-2.0) Procalcitonin 1.72ng/mL (0.00-0.10) Laboratory Tests Test 09/07/16 12:00 09/08/16 05:15 09/08/16 08:00 09/08/16 08:30 White Blood Count 20.3x10^3/uL (4.0-11.0) Red Blood Count 3.47x10^6/uL (3.50-5.40) Hemoglobin 9.9g/dL (12.0-15.5) Hematocrit 30.7% (36.0-47.0) Mean Corpuscular Volume 89fL (79-100) Mean Corpuscular Hemoglobin 29pg (25-35) Mean Corpuscular Hemoglobin Concent 32g/dL (31-37) Red Cell Distribution Width 17.3% (11.5-14.5) Platelet Count 152x10^3/uL (140-400) Potassium Level 4.3mmol/L (3.5-5.1) 3.5mmol/L (3.5-5.1) Magnesium Level 1.9mg/dL (1.8-2.4) 2.0mg/dL (1.8-2.4) Sodium Level 161mmol/L (136-145) Chloride Level 124mmol/L (98-107) Carbon Dioxide Level 30mmol/L (21-32) Anion Gap 7 (6-14) Blood Urea Nitrogen 35mg/dL (7-20) Creatinine 1.1mg/dL (0.6-1.0) Estimated GFR (Cockcroft-Gault) 49.4 Glucose Level 132mg/dL (70-99) Calcium Level 8.3mg/dL (8.5-10.1) Phosphorus Level 2.9mg/dL (2.6-4.7) Albumin 3.2g/dL (3.4-5.0) O2 Saturation 94% (92-99) Arterial Blood pH 7.30 (7.35-7.45) Arterial Blood pCO2 at Patient Temp 55mmHg (35-46) Arterial Blood pO2 at Patient Temp 70mmHg (65-108) Arterial Blood HCO3 26mmol/L (21-28) Arterial Blood Base Excess -1mmol/L (-3-3) FiO2 40 Lactic Acid Level 0.8mmol/L (0.4-2.0) Procalcitonin 1.72ng/mL (0.00-0.10) Microbiology 09/03/16 Blood Culture - Preliminary, Resulted NO GROWTH AFTER 4 DAYS Medications Current Medications Sodium Chloride 1,000 ml @ 0 mls/hr 1X ONCE IV Last administered on 14:00; Start 09/03/16 at 14:00; Stop 09/03/16 at 14:01; Status DC Sodium Chloride 1,000 ml @ 0 mls/hr 1X ONCE IV Last administered on 16:13; Start 09/03/16 at 15:45; Stop 09/03/16 at 15:46; Status DC Vancomycin HCl 1 gm/Sodium Chloride 250 ml @ 250 mls/hr 1X ONCE IV Last administered on 09/03/16 20:08; Start 09/03/16 at 20:00; Stop 09/03/16 at 20:59 ; Status DC Piperacillin Sod/ Tazobactam Sod 3.375 gm/Sodium Chloride 50 ml @ 100 mls/hr Q6HRS IV Last administered on 09/08/16 05:26; Start 09/03/16 at 20:00; Stop 09/08/16 at 08:31; Status DC Sodium Chloride 1,000 ml @ 1,000 mls/hr 1X ONCE IV Last administered on 19:00; Start 09/03/16 at 19:00; Stop 09/03/16 at 19:59; Status DC Sodium Chloride (Iv Sodium Chloride 0.9% 1000ml Bag) 1,000 ml @ 100 mls/hr Q10H IV Last administered on 09/05/16 02:13; Start 09/03/16 at 20:00; Stop 09/05 at 08:39; Status DC Pantoprazole Sodium 40 mg 40 mg DAILYAC IVP ; Start 09/04/16 at 07:30; Status Cancel Norepinephrine Bitartrate/Sodium Chloride (Levophed Vial/ Iv Sodium Chloride 0.9 % 250ml) 258 ml @ 0 mls/hr CONT PRN IV SEE I/O RECORD Last administered on 01:24; Start 09/04/16 at 03:30; Stop 09/06/16 at 12:24; Status DC Pantoprazole Sodium (Protonix Vial) 40 mg 1X ONCE IVP Last administered on 04:06; Start 09/04/16 at 04:00; Stop 09/04/16 at 04:01; Status DC Lidocaine/Sodium Bicarbonate 20 ml 20 ml STK-MED ONCE IJ ; Start 09/04/16 at 08: 40; Stop 09/04/16 at 08:41; Status DC Pantoprazole Sodium/Sodium Chloride (Protonix Iv/Iv Sodium Chloride 0.9% 100ml) 100 ml @ 10 mls/hr Q10H IV Last administered on 09/08/16 05:26; Start at 08:45 Lidocaine/Sodium Bicarbonate (Buffered Lidocaine 1%) 3 ml 1X ONCE IJ ; Start at 08:45; Stop 09/04/16 at 08:46; Status DC Heparin Sodium/ Sodium Chloride 60 unit 60 unit 1X ONCE IV ; Start 09/04/16 at 08:45; Stop 09/04/16 at 08:46; Status DC Pantoprazole Sodium 80 mg/ Sodium Chloride 100 ml @ 10 mls/hr Q10H IV ; Start 09/04/16 at 08:45; Status UNV Propofol (Diprivan) 40 ml @ As Directed STK-MED ONCE IV ; Start 09/04/16 at 10: 58; Stop 09/04/16 at 10:59; Status DC Lidocaine HCl (Lidocaine Pf 2% Vial) 5 ml STK-MED ONCE .ROUTE ; Start 09/04/16 at 10:58; Stop 09/04/16 at 10:59; Status DC Epinephrine HCl (Epinephrine Syringe) 1 mg STK-MED ONCE .ROUTE ; Start 09/04/16 at 12:02; Stop 09/04/16 at 12:03; Status DC Epinephrine HCl (Epinephrine Syringe) 1 mg STK-MED ONCE .ROUTE ; Start 09/04/16 at 12:05; Stop 09/04/16 at 12:06; Status DC Lidocaine/Sodium Bicarbonate 20 ml 20 ml STK-MED ONCE IJ ; Start 09/04/16 at 13: 12; Stop 09/04/16 at 13:13; Status DC Heparin Sodium/ Sodium Chloride 500 ml @ As Directed STK-MED ONCE .ROUTE ; Start 09/04/16 at 13:12; Stop 09/04/16 at 13:13; Status DC Epinephrine HCl (Adrenalin) 1 mg STK-MED ONCE SQ Last administered on 12:08; Start 09/04/16 at 12:08; Stop 09/04/16 at 14:25; Status DC Epinephrine HCl 1 mg 1 mg STK-MED ONCE SQ Last administered on 09/04/16 12:11 ; Start 09/04/16 at 12:11; Stop 09/04/16 at 14:25; Status DC Sodium Bicarbonate/ Sodium Chloride (Iv Sodium Chloride 0.45%) 1,050 ml @ 125 mls/hr Q8H24M IV Last administered on 09/05/16 09:06; Start 09/05/16 at 09:30; Stop 09/05/16 at 14:28; Status DC Morphine Sulfate 1 mg PRN Q4HRS PRN IV PAIN; Start 09/05/16 at 10:15 Morphine Sulfate 2 mg PRN Q4HRS PRN IV PAIN Last administered on 09/05/16 16:31 ; Start 09/05/16 at 10:15 Desmopressin Acetate (Ddavp) 1 mcg BID SQ Last administered on 09/05/16 20:51; Start 09/05/16 at 15:00; Stop 09/06/16 at 10:13; Status DC Sodium Bicarbonate 50 meq 50 meq Q6HRS IV Last administered on 09/07/16 06:10; Start 09/05/16 at 18:00; Stop 09/07/16 at 08:51; Status DC Albumin Human 100 ml @ 100 mls/hr TID IV Last administered on 09/06/16 23:20; Start 09/05/16 at 15:00; Stop 09/07/16 at 08:51; Status DC Magnesium Sulfate/ Dextrose 50 ml @ 25 mls/hr PRN DAILY PRN IV for Mag < 1.7 on am labs; Start 09/05/16 at 14:30; Stop 09/06/16 at 06:18; Status DC Potassium Chloride 50 ml @ 50 mls/hr PRN Q6HRS PRN IV For K < 3.7; Start at 14:30 Potassium Chloride (KCl Premix 20meq) 50 ml @ 50 mls/hr PRN Q2HR PRN IV total of 40mEq for K < 3.5; Start 09/05/16 at 14:30 Iohexol (Omnipaque 300 Mg/ml) 50 ml STK-MED ONCE .ROUTE ; Start 09/05/16 at 22:27 ; Stop 09/05/16 at 22:28; Status DC Iohexol (Omnipaque 300 Mg/ml) 100 ml STK-MED ONCE .ROUTE ; Start 09/05/16 at 22: 27; Stop 09/05/16 at 22:28; Status DC Lidocaine/Sodium Bicarbonate 20 ml 20 ml STK-MED ONCE IJ ; Start 09/05/16 at 22: 27; Stop 09/05/16 at 22:28; Status DC Heparin Sodium/ Sodium Chloride 1,000 ml @ As Directed STK-MED ONCE .ROUTE ; Start 09/05/16 at 22:27; Stop 09/05/16 at 22:28; Status DC Heparin Sodium/ Sodium Chloride 1,000 unit 1X ONCE IART Last administered on 23:46; Start 09/05/16 at 23:30; Stop 09/05/16 at 23:31; Status DC Lidocaine/Sodium Bicarbonate (Buffered Lidocaine 1%) 20 ml 1X ONCE IJ Last administered on 09/05/16 23:46; Start 09/05/16 at 23:30; Stop 09/05/16 at 23:31; Status DC Iohexol (Omnipaque 300 Mg/ml) 100 ml 1X ONCE IART Last administered on 01:07; Start 09/05/16 at 23:30; Stop 09/05/16 at 23:31; Status DC Gelatin (Gelfoam Size 12-7mm) 1 each STK-MED ONCE .ROUTE ; Start 09/05/16 at 23: 35; Stop 09/05/16 at 23:36; Status DC Midazolam HCl (Versed) 2 mg STK-MED ONCE .ROUTE ; Start 09/05/16 at 23:51; Stop 09/05/16 at 23:52; Status DC Naloxone HCl (Narcan) 0.4 mg STK-MED ONCE .ROUTE ; Start 09/05/16 at 23:54; Stop 09/05/16 at 23:55; Status DC Iohexol (Omnipaque 300 Mg/ml) 50 ml STK-MED ONCE .ROUTE ; Start 09/05/16 at 23:58 ; Stop 09/05/16 at 23:59; Status DC Iohexol (Omnipaque 300 Mg/ml) 50 ml STK-MED ONCE .ROUTE ; Start 09/06/16 at 00:17 ; Stop 09/06/16 at 00:18; Status DC Midazolam HCl (Versed) 2 mg 1X ONCE IV Last administered on 09/06/16 01:08; Start 09/06/16 at 00:30; Stop 09/06/16 at 00:31; Status DC Iohexol (Omnipaque 300 Mg/ml) 150 ml 1X ONCE IART Last administered on 01:08; Start 09/06/16 at 00:30; Stop 09/06/16 at 00:31; Status DC Fentanyl Citrate (Fentanyl 2ml Vial) 100 mcg STK-MED ONCE .ROUTE ; Start at 00:23; Stop 09/06/16 at 00:24; Status DC Norepinephrine Bitartrate 4 mg 4 mg STK-MED ONCE IV ; Start 09/06/16 at 00:43; Stop 09/06/16 at 00:44; Status DC Dopamine HCl/ Dextrose 250 ml @ As Directed STK-MED ONCE IV ; Start 09/06/16 at 00:53; Stop 09/06/16 at 00:55; Status DC Diphenhydramine HCl (Benadryl) 50 mg STK-MED ONCE .ROUTE ; Start 09/06/16 at 01: 02; Stop 09/06/16 at 01:03; Status DC Fentanyl Citrate (Fentanyl 2ml Vial) 25 mcg 1X ONCE IV Last administered on 01:22; Start 09/06/16 at 01:30; Stop 09/06/16 at 01:31; Status DC Diphenhydramine HCl 25 mg 25 mg 1X ONCE IVP Last administered on 09/06/16 01: 25; Start 09/06/16 at 01:30; Stop 09/06/16 at :31; Status DC Norepinephrine Bitartrate 8 mg/ Sodium Chloride 258 ml @ 0 mls/hr 1X ONCE IV Last administered on 09/06/16 01:26; Start 09/06/16 at 01:30; Stop 09/06/16 at : 31; Status DC Dopamine HCl/ Dextrose 250 ml @ 9.952 mls/ hr 1X ONCE IV Last administered on 09/06/16 01:22; Start 09/06/16 at 01:15; Stop 09/07/16 at 02:22; Status DC Lidocaine HCl 100 mg 100 mg STK-MED ONCE .ROUTE ; Start 09/06/16 at 03:32; Stop 09/06/16 at 03:33; Status DC Phytonadione 10 mg/Sodium Chloride 51 ml @ 102 mls/hr 1X ONCE IV ; Start at 04:30; Stop 09/06/16 at 08:49; Status DC Magnesium Sulfate/ Dextrose 50 ml @ 25 mls/hr PRN DAILY PRN IV for Mag < 1.7 on am labs; Start 09/06/16 at 06:30 Sodium Chloride 500 ml @ 500 mls/hr PRN QID PRN IV UO< 30cc/hr over previous 6hrs; Start 09/06/16 at 06:30 Phenylephrine HCl/ Sodium Chloride (Miky-Synephrine Inj/Iv Sodium Chloride 0.9% 250ml) 252 ml @ 0 mls/hr CONT PRN IV SEE I/O RECORD; Start 09/06/16 at 08:30 Phytonadione (Vitamin K) 10 mg 1X ONCE SQ Last administered on 09/06/16 09:43 ; Start 09/06/16 at 09:30; Stop 09/06/16 at 09:31; Status DC Pantoprazole Sodium 40 mg 40 mg 1X ONCE IVP Last administered on 09/06/16 09: 44; Start 09/06/16 at 09:30; Stop 09/06/16 at 09:31; Status DC Vasopressin 40 unit/Dextrose 102 ml @ 6 mls/hr CONT PRN IV SEE I/O RECORD Last administered on 09/07/16 06:00; Start 09/06/16 at 10:00 Norepinephrine Bitartrate 8 mg/ Dextrose 258 ml @ 0 mls/hr CONT PRN IV . Last administered on 09/06/16 16:32; Start 09/06/16 at 12:30 Potassium Chloride 50 ml @ 50 mls/hr Q2H IV Last administered on 09/06/16 17:20 ; Start 09/06/16 at 15:00; Stop 09/06/16 at 17:59; Status DC Dextrose 1,000 ml @ 100 mls/hr Q10H IV Last administered on 09/08/16 01:39; Start 09/06/16 at 20:00 Phenylephrine HCl 1 mg 1 mg STK-MED ONCE IV ; Start 09/05/16 at 12:00; Stop at 08:22; Status DC Potassium Chloride 50 ml @ 50 mls/hr Q2H IV Last administered on 09/07/16 10:49 ; Start 09/07/16 at 10:00; Stop 09/07/16 at 12:59; Status DC Fluconazole/ Sodium Chloride (Diflucan 200mg/ 100ml Premix) 100 ml @ 100 mls/ hr Q24H IV Last administered on 09/08/16 08:54; Start 09/08/16 at 09:00 Vancomycin HCl 1 each 1 each PRN DAILY PRN MC SEE COMMENTS; Start 09/08/16 at 08 :00 Vancomycin HCl 1.5 gm/Sodium Chloride 500 ml @ 250 mls/hr 1X ONCE IV ; Start 09/08/16 at 09:00; Stop 09/08/16 at 09:00; Status DC Cefepime HCl 1 gm/ Sodium Chloride 50 ml @ 100 mls/hr Q8HRS IV ; Start 09/08/16 at 14:00; Stop 09/08/16 at 14:00; Status DC Vancomycin HCl 1.5 gm/Dextrose 500 ml @ 250 mls/hr 1X ONCE IV Last administered on 09/08/16t 09:29; Start 09/08/16 at 09:00; Stop 09/08/16 at 10:59 Cefepime HCl/ Dextrose (Maxipime) 100 ml @ 200 mls/hr Q8HRS IV ; Start 09/08/16 at 14:00 Active Scripts Active Hydrocodone-Apap 5-325 (Hydrocodone Bit/Acetaminophen) 1 Each Tablet 2 Tab PO PRN Q4HRS PRN Reported Duoneb 0.5-3(2.5) Mg/3 Ml (Albuterol/Ipratropium) 3 Ml Ampul.neb 3 Ml NEB QID PRN Xanax (Alprazolam) 0.5 Mg Tablet 1 Tab PO Q8HRS PRN Senna-Docusate Sodium Tablet (Sennosides/Docusate Sodium) 1 Each Tablet 1 Each PO DAILY Coumadin (Warfarin Sodium) 2.5 Mg Tablet 1 Tab PO DAILY managed by Dr. Evans Polyethylene Glycol 3350 255 Gm Powder 17 Gm PO DAILY PRN Proair Hfa (Albuterol Sulfate) 8.5 Gm Hfa.aer.ad Valsartan-Hctz 160-12.5 Mg Tab (Valsartan/Hydrochlorothiazide) 1 Each Tablet 1 Each PO DAILY Combivent Respimat Inhal (Ipratropium/Albuterol Sulfate) 4 Gm Aer.w.adap 2 Inh IH QID Albuterol Sulfate Hfa Inhaler (Albuterol Sulfate) 8.5 Gm Hfa.aer.ad 8.5 Gm IH PRN Vitals/I & O Vital Sign - Last 24 Hours 09/07/16 09/07/16 09/07/16 09/07/16 10:15 10:52 11:01 11:38 Pulse 117 122 Resp 30 27 B/P 130/76 130/79 Pulse Ox 97 100 100 O2 Delivery BiPAP/CPAP BiPAP/CPAP BiPAP/CPAP Bi-pap O2 Flow Rate 3.0 4/3/17 4/3/17 4/3/17 4/3/17 12:12 12:53 13:58 14:10 Temp 98.3 98.3 Pulse 109 108 116 Resp B/P 123/74 132/80 119/79 Pulse Ox 98 100 99 99 O2 Delivery BiPAP/CPAP BiPAP/CPAP BiPAP/CPAP BiPAP/CPAP 3/17 4/3/17 4/3/17 4/3/17 15:00 16:00 16:03 16:04 Pulse 112 112 Resp B/P 127/69 116/79 Pulse Ox 98 99 100 O2 Delivery BiPAP/CPAP BiPAP/CPAP Bi-pap BiPAP/CPAP O2 Flow Rate 3.0 09/07/17 4//17 4/3/17 4//17 17:17 18:11 19:00 19:14 Temp 98.9 98.9 Pulse 104 119 116 Resp 24 B/P 116/77 134/87 136/79 Pulse Ox 99 100 100 96 O2 Delivery BiPAP/CPAP BiPAP/CPAP BiPAP/CPAP BiPAP/CPAP 09/07/17 /3/17 4/3/17 09/07/17 20:00 20:00 21:00 22:00 Temp 100.2 100.2 Pulse 105 102 100 Resp 24 B/P 116/70 112/78 118/71 Pulse Ox 100 100 100 O2 Delivery Bi-pap BiPAP/CPAP BiPAP/CPAP BiPAP/CPAP 09/07/17 4/3/17 4/3/17 //17 22:15 23:00 23:59 00:00 Temp 98.8 98.8 Pulse 121 121 Resp 24 B/P 121/78 121/78 Pulse Ox 100 100 100 O2 Delivery BiPAP/CPAP BiPAP/CPAP Bi-pap BiPAP/CPAP 09/08/17 09/08/17 4//17 4//17 00:24 01:00 02:00 03:00 Pulse 117 102 107 Resp 24 24 B/P 146/103 122/74 140/90 Pulse Ox 99 100 95 95 O2 Delivery BiPAP/CPAP BiPAP/CPAP BiPAP/CPAP BiPAP/CPAP 09/08/17 4//17 4//17 4//17 03:12 04:00 04:00 05:00 Temp 98.1 98.1 Pulse 107 96 Resp 24 24 B/P 123/71 133/74 Pulse Ox 97 95 99 O2 Delivery BiPAP/CPAP BiPAP/CPAP Bi-pap BiPAP/CPAP 09/08/16 09/08/16 09/08/16 09/08/16 05:20 06:00 07:00 07:50 Temp 99.0 99.0 Pulse 100 100 Resp 24 24 B/P 124/72 93/62 Pulse Ox 99 99 100 100 O2 Delivery BiPAP/CPAP BiPAP/CPAP BiPAP/CPAP BiPAP/CPAP 09/08/16 09/08/16 09/08/16 09/08/16 07:51 08:00 09:00 09:16 Pulse 96 98 Resp 26 24 B/P 122/70 95/65 Pulse Ox 100 99 96 O2 Delivery Bi-pap BiPAP/CPAP BiPAP/CPAP BiPAP/CPAP O2 Flow Rate 3.0 Intake and Output 09/07/16 09/07/16 09/08/16 15:00 23:00 07:00 Intake Total 50 ml 2616 ml 1398 ml Output Total 300 ml 360 ml 325 ml Balance -250 ml 2256 ml 1073 ml JAMIN EVANS MD Sep 08, 2016 10:16
--- NOTE | 2016-09-08 10:55 | PDOC ---
SURGICAL PROGRESS NOTE Subjective On CPAP drowsey. Denies pain Vital Signs Vital Signs Date Time Temp Pulse Resp B/P Pulse Ox O2 Delivery O2 Flow Rate FiO2 09/08/16 09:16 96 BiPAP/CPAP 09/08/16 09:00 98 24 95/65 09/08/16 07:51 3.0 09/08/16 07:00 99.0 99.0 I&O Intake and Output 09/08/16 07:00 Intake Total 4064 ml Output Total 985 ml Balance 3079 ml Intake Oral 0 ml IV Total 2622 ml Other 1442 ml Output Urine Total 985 ml # Bowel Movements 1 PATIENT HAS A OLIVIER: Yes General: Cooperative, moderate distress Abdomen: Normal bowel sounds, Soft, No tenderness Labs Laboratory Tests Test 09/06/16 11:20 09/06/16 14:15 09/06/16 15:25 09/06/16 17:06 White Blood Count 21.1x10^3/uL (4.0-11.0) 13.0x10^3/uL (4.0-11.0) Red Blood Count 3.26x10^6/uL (3.50-5.40) 2.79x10^6/uL (3.50-5.40) Hemoglobin 9.0g/dL (12.0-15.5) 7.8g/dL (12.0-15.5) Hematocrit 27.9% (36.0-47.0) 23.3% (36.0-47.0) Mean Corpuscular Volume 86fL (79-100) 83fL (79-100) Mean Corpuscular Hemoglobin 28pg (25-35) 28pg (25-35) Mean Corpuscular Hemoglobin Concent 32g/dL (31-37) 34g/dL (31-37) Red Cell Distribution Width 16.2% (11.5-14.5) 16.2% (11.5-14.5) Platelet Count 170x10^3/uL (140-400) 119x10^3/uL (140-400) Potassium Level 3.1mmol/L (3.5-5.1) 3.3mmol/L (3.5-5.1) Prothrombin Time 16.9SEC (11.7-14.0) Prothromb Time International Ratio 1.5 (0.8-1.1) Sodium Level 162mmol/L (136-145) Chloride Level 124mmol/L (98-107) Carbon Dioxide Level 26mmol/L (21-32) Anion Gap 12 (6-14) Blood Urea Nitrogen 54mg/dL (7-20) Creatinine 1.3mg/dL (0.6-1.0) Estimated GFR (Cockcroft-Gault) 40.7 Glucose Level 129mg/dL (70-99) Calcium Level 8.2mg/dL (8.5-10.1) Test 09/06/16 23:25 09/06/16 23:30 09/06/16 23:55 09/07/16 05:15 White Blood Count 12.3x10^3/uL (4.0-11.0) 14.3x10^3/uL (4.0-11.0) Red Blood Count 3.25x10^6/uL (3.50-5.40) 3.32x10^6/uL (3.50-5.40) Hemoglobin 9.5g/dL (12.0-15.5) 9.6g/dL (12.0-15.5) Hematocrit 28.5% (36.0-47.0) 29.3% (36.0-47.0) Mean Corpuscular Volume 88fL (79-100) 88fL (79-100) Mean Corpuscular Hemoglobin 29pg (25-35) 29pg (25-35) Mean Corpuscular Hemoglobin Concent 33g/dL (31-37) 33g/dL (31-37) Red Cell Distribution Width 17.7% (11.5-14.5) 17.3% (11.5-14.5) Platelet Count 139x10^3/uL (140-400) 138x10^3/uL (140-400) Prothrombin Time 13.8SEC (11.7-14.0) Prothromb Time International Ratio 1.1 (0.8-1.1) Sodium Level 161mmol/L (136-145) 160mmol/L (136-145) Potassium Level 3.5mmol/L (3.5-5.1) 3.4mmol/L (3.5-5.1) Chloride Level 123mmol/L (98-107) 122mmol/L (98-107) Carbon Dioxide Level 28mmol/L (21-32) 28mmol/L (21-32) Anion Gap 10 (6-14) 10 (6-14) Blood Urea Nitrogen 53mg/dL (7-20) 49mg/dL (7-20) Creatinine 1.3mg/dL (0.6-1.0) 1.3mg/dL (0.6-1.0) Estimated GFR (Cockcroft-Gault) 40.7 40.7 Glucose Level 182mg/dL (70-99) 184mg/dL (70-99) Calcium Level 8.3mg/dL (8.5-10.1) 8.3mg/dL (8.5-10.1) Neutrophils (%) (Auto) 87% (31-73) Lymphocytes (%) (Auto) 3% (24-48) Monocytes (%) (Auto) 9% (0-9) Eosinophils (%) (Auto) 0% (0-3) Basophils (%) (Auto) 0% (0-3) Neutrophils # (Auto) 12.5x10^3uL (1.8-7.7) Lymphocytes # (Auto) 0.5x10^3/uL (1.0-4.8) Monocytes # (Auto) 1.3x10^3/uL (0.0-1.1) Eosinophils # (Auto) 0.0x10^3/uL (0.0-0.7) Basophils # (Auto) 0.0x10^3/uL (0.0-0.2) Phosphorus Level 4.2mg/dL (2.6-4.7) Magnesium Level 1.9mg/dL (1.8-2.4) Albumin 3.9g/dL (3.4-5.0) Test 09/07/16 08:00 09/07/16 12:00 09/08/16 05:15 09/08/16 08:00 O2 Saturation 88% (92-99) 94% (92-99) Arterial Blood pH 7.21 (7.35-7.45) 7.30 (7.35-7.45) Arterial Blood pCO2 at Patient Temp 69mmHg (35-46) 55mmHg (35-46) Arterial Blood pO2 at Patient Temp 59mmHg (65-108) 70mmHg (65-108) Arterial Blood HCO3 27mmol/L (21-28) 26mmol/L (21-28) Arterial Blood Base Excess -2mmol/L (-3-3) -1mmol/L (-3-3) FiO2 35% 40 White Blood Count 20.3x10^3/uL (4.0-11.0) Red Blood Count 3.47x10^6/uL (3.50-5.40) Hemoglobin 9.9g/dL (12.0-15.5) Hematocrit 30.7% (36.0-47.0) Mean Corpuscular Volume 89fL (79-100) Mean Corpuscular Hemoglobin 29pg (25-35) Mean Corpuscular Hemoglobin Concent 32g/dL (31-37) Red Cell Distribution Width 17.3% (11.5-14.5) Platelet Count 152x10^3/uL (140-400) Potassium Level 4.3mmol/L (3.5-5.1) 3.5mmol/L (3.5-5.1) Magnesium Level 1.9mg/dL (1.8-2.4) 2.0mg/dL (1.8-2.4) Sodium Level 161mmol/L (136-145) Chloride Level 124mmol/L (98-107) Carbon Dioxide Level 30mmol/L (21-32) Anion Gap 7 (6-14) Blood Urea Nitrogen 35mg/dL (7-20) Creatinine 1.1mg/dL (0.6-1.0) Estimated GFR (Cockcroft-Gault) 49.4 Glucose Level 132mg/dL (70-99) Calcium Level 8.3mg/dL (8.5-10.1) Phosphorus Level 2.9mg/dL (2.6-4.7) Albumin 3.2g/dL (3.4-5.0) Test 09/08/16 08:30 Lactic Acid Level 0.8mmol/L (0.4-2.0) Procalcitonin 1.72ng/mL (0.00-0.10) Laboratory Tests Test 09/07/16 12:00 09/08/16 05:15 09/08/16 08:00 09/08/16 08:30 White Blood Count 20.3x10^3/uL (4.0-11.0) Red Blood Count 3.47x10^6/uL (3.50-5.40) Hemoglobin 9.9g/dL (12.0-15.5) Hematocrit 30.7% (36.0-47.0) Mean Corpuscular Volume 89fL (79-100) Mean Corpuscular Hemoglobin 29pg (25-35) Mean Corpuscular Hemoglobin Concent 32g/dL (31-37) Red Cell Distribution Width 17.3% (11.5-14.5) Platelet Count 152x10^3/uL (140-400) Potassium Level 4.3mmol/L (3.5-5.1) 3.5mmol/L (3.5-5.1) Magnesium Level 1.9mg/dL (1.8-2.4) 2.0mg/dL (1.8-2.4) Sodium Level 161mmol/L (136-145) Chloride Level 124mmol/L (98-107) Carbon Dioxide Level 30mmol/L (21-32) Anion Gap 7 (6-14) Blood Urea Nitrogen 35mg/dL (7-20) Creatinine 1.1mg/dL (0.6-1.0) Estimated GFR (Cockcroft-Gault) 49.4 Glucose Level 132mg/dL (70-99) Calcium Level 8.3mg/dL (8.5-10.1) Phosphorus Level 2.9mg/dL (2.6-4.7) Albumin 3.2g/dL (3.4-5.0) O2 Saturation 94% (92-99) Arterial Blood pH 7.30 (7.35-7.45) Arterial Blood pCO2 at Patient Temp 55mmHg (35-46) Arterial Blood pO2 at Patient Temp 70mmHg (65-108) Arterial Blood HCO3 26mmol/L (21-28) Arterial Blood Base Excess -1mmol/L (-3-3) FiO2 40 Lactic Acid Level 0.8mmol/L (0.4-2.0) Procalcitonin 1.72ng/mL (0.00-0.10) Problem List Problems Medical Problems: (1) Anemia Status: Acute (2) Hypotension Status: Acute Assessment/Plan Upper GI bleed from large ulcer s/p IR intervention Hgb stable 9.9 Bleeding appears to have stopped Will monitor Problems: ELI DRUMMOND MD Sep 08, 2016 10:55
--- NOTE | 2016-09-08 12:11 | PDOC ---
PULMONARY PROGRESS NOTES Subjective SLEEPY ON BIPAP Vitals Vital Signs Date Time Temp Pulse Resp B/P Pulse Ox O2 Delivery O2 Flow Rate FiO2 09/08/16 11:46 BiPAP/CPAP 09/08/16 11:42 3.0 09/08/16 11:27 98 09/08/16 11:00 92 24 133/100 09/08/16 07:00 99.0 99.0 General: Lethargic Lungs: Other (decrease bs) Cardiovascular: S1 Abdomen: Soft, Non-tender Extremities: No Edema Skin: Warm Labs Laboratory Tests Test 09/06/16 14:15 09/06/16 15:25 09/06/16 17:06 09/06/16 23:25 Potassium Level 3.1mmol/L (3.5-5.1) 3.3mmol/L (3.5-5.1) White Blood Count 13.0x10^3/uL (4.0-11.0) 12.3x10^3/uL (4.0-11.0) Red Blood Count 2.79x10^6/uL (3.50-5.40) 3.25x10^6/uL (3.50-5.40) Hemoglobin 7.8g/dL (12.0-15.5) 9.5g/dL (12.0-15.5) Hematocrit 23.3% (36.0-47.0) 28.5% (36.0-47.0) Mean Corpuscular Volume 83fL (79-100) 88fL (79-100) Mean Corpuscular Hemoglobin 28pg (25-35) 29pg (25-35) Mean Corpuscular Hemoglobin Concent 34g/dL (31-37) 33g/dL (31-37) Red Cell Distribution Width 16.2% (11.5-14.5) 17.7% (11.5-14.5) Platelet Count 119x10^3/uL (140-400) 139x10^3/uL (140-400) Prothrombin Time 16.9SEC (11.7-14.0) Prothromb Time International Ratio 1.5 (0.8-1.1) Sodium Level 162mmol/L (136-145) Chloride Level 124mmol/L (98-107) Carbon Dioxide Level 26mmol/L (21-32) Anion Gap 12 (6-14) Blood Urea Nitrogen 54mg/dL (7-20) Creatinine 1.3mg/dL (0.6-1.0) Estimated GFR (Cockcroft-Gault) 40.7 Glucose Level 129mg/dL (70-99) Calcium Level 8.2mg/dL (8.5-10.1) Test 09/06/16 23:30 09/06/16 23:55 09/07/16 05:15 09/07/16 08:00 Prothrombin Time 13.8SEC (11.7-14.0) Prothromb Time International Ratio 1.1 (0.8-1.1) Sodium Level 161mmol/L (136-145) 160mmol/L (136-145) Potassium Level 3.5mmol/L (3.5-5.1) 3.4mmol/L (3.5-5.1) Chloride Level 123mmol/L (98-107) 122mmol/L (98-107) Carbon Dioxide Level 28mmol/L (21-32) 28mmol/L (21-32) Anion Gap 10 (6-14) 10 (6-14) Blood Urea Nitrogen 53mg/dL (7-20) 49mg/dL (7-20) Creatinine 1.3mg/dL (0.6-1.0) 1.3mg/dL (0.6-1.0) Estimated GFR (Cockcroft-Gault) 40.7 40.7 Glucose Level 182mg/dL (70-99) 184mg/dL (70-99) Calcium Level 8.3mg/dL (8.5-10.1) 8.3mg/dL (8.5-10.1) White Blood Count 14.3x10^3/uL (4.0-11.0) Red Blood Count 3.32x10^6/uL (3.50-5.40) Hemoglobin 9.6g/dL (12.0-15.5) Hematocrit 29.3% (36.0-47.0) Mean Corpuscular Volume 88fL (79-100) Mean Corpuscular Hemoglobin 29pg (25-35) Mean Corpuscular Hemoglobin Concent 33g/dL (31-37) Red Cell Distribution Width 17.3% (11.5-14.5) Platelet Count 138x10^3/uL (140-400) Neutrophils (%) (Auto) 87% (31-73) Lymphocytes (%) (Auto) 3% (24-48) Monocytes (%) (Auto) 9% (0-9) Eosinophils (%) (Auto) 0% (0-3) Basophils (%) (Auto) 0% (0-3) Neutrophils # (Auto) 12.5x10^3uL (1.8-7.7) Lymphocytes # (Auto) 0.5x10^3/uL (1.0-4.8) Monocytes # (Auto) 1.3x10^3/uL (0.0-1.1) Eosinophils # (Auto) 0.0x10^3/uL (0.0-0.7) Basophils # (Auto) 0.0x10^3/uL (0.0-0.2) Phosphorus Level 4.2mg/dL (2.6-4.7) Magnesium Level 1.9mg/dL (1.8-2.4) Albumin 3.9g/dL (3.4-5.0) O2 Saturation 88% (92-99) Arterial Blood pH 7.21 (7.35-7.45) Arterial Blood pCO2 at Patient Temp 69mmHg (35-46) Arterial Blood pO2 at Patient Temp 59mmHg (65-108) Arterial Blood HCO3 27mmol/L (21-28) Arterial Blood Base Excess -2mmol/L (-3-3) FiO2 35% Test 09/07/16 12:00 09/08/16 05:15 09/08/16 08:00 09/08/16 08:30 White Blood Count 20.3x10^3/uL (4.0-11.0) Red Blood Count 3.47x10^6/uL (3.50-5.40) Hemoglobin 9.9g/dL (12.0-15.5) Hematocrit 30.7% (36.0-47.0) Mean Corpuscular Volume 89fL (79-100) Mean Corpuscular Hemoglobin 29pg (25-35) Mean Corpuscular Hemoglobin Concent 32g/dL (31-37) Red Cell Distribution Width 17.3% (11.5-14.5) Platelet Count 152x10^3/uL (140-400) Potassium Level 4.3mmol/L (3.5-5.1) 3.5mmol/L (3.5-5.1) Magnesium Level 1.9mg/dL (1.8-2.4) 2.0mg/dL (1.8-2.4) Sodium Level 161mmol/L (136-145) Chloride Level 124mmol/L (98-107) Carbon Dioxide Level 30mmol/L (21-32) Anion Gap 7 (6-14) Blood Urea Nitrogen 35mg/dL (7-20) Creatinine 1.1mg/dL (0.6-1.0) Estimated GFR (Cockcroft-Gault) 49.4 Glucose Level 132mg/dL (70-99) Calcium Level 8.3mg/dL (8.5-10.1) Phosphorus Level 2.9mg/dL (2.6-4.7) Albumin 3.2g/dL (3.4-5.0) O2 Saturation 94% (92-99) Arterial Blood pH 7.30 (7.35-7.45) Arterial Blood pCO2 at Patient Temp 55mmHg (35-46) Arterial Blood pO2 at Patient Temp 70mmHg (65-108) Arterial Blood HCO3 26mmol/L (21-28) Arterial Blood Base Excess -1mmol/L (-3-3) FiO2 40 Lactic Acid Level 0.8mmol/L (0.4-2.0) Procalcitonin 1.72ng/mL (0.00-0.10) Laboratory Tests Test 09/08/16 05:15 09/08/16 08:00 09/08/16 08:30 Sodium Level 161mmol/L (136-145) Potassium Level 3.5mmol/L (3.5-5.1) Chloride Level 124mmol/L (98-107) Carbon Dioxide Level 30mmol/L (21-32) Anion Gap 7 (6-14) Blood Urea Nitrogen 35mg/dL (7-20) Creatinine 1.1mg/dL (0.6-1.0) Estimated GFR (Cockcroft-Gault) 49.4 Glucose Level 132mg/dL (70-99) Calcium Level 8.3mg/dL (8.5-10.1) Phosphorus Level 2.9mg/dL (2.6-4.7) Magnesium Level 2.0mg/dL (1.8-2.4) Albumin 3.2g/dL (3.4-5.0) O2 Saturation 94% (92-99) Arterial Blood pH 7.30 (7.35-7.45) Arterial Blood pCO2 at Patient Temp 55mmHg (35-46) Arterial Blood pO2 at Patient Temp 70mmHg (65-108) Arterial Blood HCO3 26mmol/L (21-28) Arterial Blood Base Excess -1mmol/L (-3-3) FiO2 40 Lactic Acid Level 0.8mmol/L (0.4-2.0) Procalcitonin 1.72ng/mL (0.00-0.10) Medications Active Scripts Medications Dose Route/Sig Days Date Category Dose Instructions Duoneb 0.5-3(2.5) Mg/3 Ml (Albuterol/Ipratropium) 3 Ml Ampul.neb 3 Ml NEB QID PRN 08/28/16 Reported Xanax (Alprazolam) 0.5 Mg Tablet 1 Tab PO Q8HRS PRN 08/28/16 Reported Senna-Docusate Sodium Tablet (Sennosides/Docusate Sodium) 1 Each Tablet 1 Each PO DAILY 08/28/16 Reported Coumadin (Warfarin Sodium) 2.5 Mg Tablet 1 Tab PO DAILY 08/28/[address] Ochoa Polyethylene Glycol 3350 255 Gm Powder 17 Gm PO DAILY PRN 08/25/16 Reported Hydrocodone-Apap 5-325 (Hydrocodone Bit/Acetaminophen) 1 Each Tablet 2 Tab PO PRN Q4HRS PRN 08/17/16 Rx Proair Hfa (Albuterol Sulfate) 8.5 Gm Hfa.aer.ad 08/13/16 Reported Valsartan-Hctz 160-12.5 Mg Tab (Valsartan/Hydrochlorothiazide) 1 Each Tablet 1 Each PO DAILY 08/12/16 Reported Combivent Respimat Inhal (Ipratropium/Albuterol Sulfate) 4 Gm Aer.w.adap 2 Inh IH QID 08/12/16 Reported Albuterol Sulfate Hfa Inhaler (Albuterol Sulfate) 8.5 Gm Hfa.aer.ad 8.5 Gm IH PRN 08/28/13 Reported Impression . 1. Acute on chronic respiratory failure, multifactorial. 2. Metabolic toxic encephalopathy. 3. Renal insufficiency. 4. Recent gastrointestinal bleed, status post cauterization on 09/04/2016 for duodenal ulcers. 5. Status post emergent arteriogram with embolization on 09/05/2016. 6. Lactic acidosis secondary to hypoperfusion and GI bleed along with infection. 7. Respiratory metabolic acidosis. 8. Hypotension, possible sepsis. Plan . 1. Continue current support with BiPAP. adjust IPAP based on ABG. reduce FIO2 2. IV fluids prn 3. IV antibiotics. 4. off Pressors. 5. Protonix. Overall, the patient's condition is poor. would recommend DNR. consult palliative care IVANIA MARIN MD Sep 08, 2016 12:11
[2016-09-08] MEDS: VANCOMYCIN PER PHARMACY MC PRN (13:43)
[2016-09-08] MEDS ORDERED: CEFEPIME HCL 1 GM in IV NORMAL SALINE 50ML 50 ML IV SCH (14:00)
[2016-09-08 14:12] LABS: HCO3 ABG 25 mmol/L (21-28); PCO2 ABG 54 mmHg (35-46); PH ABG 7.28 (7.35-7.45); PO2 ABG 67 mmHg (65-108); SAT O2 ABG 93 % (92-99)
[2016-09-08 14:14] LABS: FIO2 ABG 35
[2016-09-08] MEDS: CEFEPIME HCL 1 GM in IV DEXTROSE 5% 100 ML IV SCH ×2 (14:26→21:32)
[2016-09-08] MEDS ORDERED: SODIUM BICARB ADULT 8.4% 50 MEQ/50 ML DISP.SYRIN. IV ONE (14:45)
--- NOTE | 2016-09-08 15:19 | PDOC ---
Objective: Objective: Per RN - still passing some dark blood. On BiPAP. Vital Signs: Vital Signs Date Time Temp Pulse Resp B/P Pulse Ox O2 Delivery O2 Flow Rate FiO2 09/08/16 15:06 118 26 116/97 94 BiPAP/CPAP 09/08/16 12:00 98.2 98.2 09/08/16 11:42 3.0 Labs: Laboratory Tests Test 09/08/16 05:15 09/08/16 08:00 09/08/16 08:30 09/08/16 14:00 Sodium Level 161mmol/L Potassium Level 3.5mmol/L Chloride Level 124mmol/L Carbon Dioxide Level 30mmol/L Anion Gap 7 Blood Urea Nitrogen 35mg/dL Creatinine 1.1mg/dL Estimated GFR (Cockcroft-Gault) 49.4 Glucose Level 132mg/dL Calcium Level 8.3mg/dL Phosphorus Level 2.9mg/dL Magnesium Level 2.0mg/dL Albumin 3.2g/dL O2 Saturation 94% 93% Arterial Blood pH 7.30 7.28 Arterial Blood pCO2 at Patient Temp 55mmHg 54mmHg Arterial Blood pO2 at Patient Temp 70mmHg 67mmHg Arterial Blood HCO3 26mmol/L 25mmol/L Arterial Blood Base Excess -1mmol/L -2mmol/L FiO2 40 35 Lactic Acid Level 0.8mmol/L Procalcitonin 1.72ng/mL PE: GEN: NAD LUNGS: BiPAP HEART: tachycardic ABD: S/ND/NT NEURO/PSYCH: awake A/P: Duodenal ulcer s/p endotherapy, s/p IR embolization -surgery following -Hgb improved -still passing some dark blood -- RN asks about PPN - okay to start this. FELICITAS BEACH Sep 08, 2016 15:19
--- NOTE | 2016-09-08 16:04 | PATHOLOGY ---
PATHOLOGY REPORT * * * * * * * * FINAL DIAGNOSIS: Gastric biopsy, antrum: - Slight superficial chronic inflammation. COMMENT: Sections of the gastric biopsy reveal gastric body mucosa showing slight superficial chronic inflammation. An immunoperoxidase stain for Helicobacter is obtained. No Helicobacter organisms are identified. There is no evidence of malignancy. (JPM:; d/t: 09/08/16) Special Stain Performed: Immunoperoxidase stain for Helicobacter (A1) REPORT ELECTRONICALLY SIGNED BY: Constantin Beebe M.D. DATE/TIME: 09/08/2016 16:03 * * * * * * * * GROSS PATHOLOGY: Received in formalin labeled "Talisha Fischer and antrum, rule out H. pylori," are 2 segments of hawthorne soft tissue measuring 1.2 x 0.2 x 0.2 cm in aggregate dimensions and measuring 0.5 and 0.7 cm in maximum dimension. The specimen is submitted entirely in cassette A1. (TTL; 09/07/2016) INITIAL CPT CODE(S): A; 11640, 81591 Professional services performed [place] [facility] [place] [address] Technical services performed by [facility] at [address] [place] [address]. SPECIMEN(S) RECEIVED: A.Antrum biopsy CLINICAL HISTORY: GI bleed PATIENT: TALISHA FISCHER /AGE: 6 1945 (Age: 70) PATIENT #: [id number] ALT CASE #: SPECIMEN COLLECTION DATE: 09/04/2016 SPECIMEN RECEIVED DATE: 09/07/2016 [facility] - [address] [place] [address] - PHONE: [phone] * * * END OF REPORT * * *
[2016-09-08 16:31] LABS: HCO3 ABG 30 mmol/L (21-28); PCO2 ABG 55 mmHg (35-46); PH ABG 7.36 (7.35-7.45); PO2 ABG 65 mmHg (65-108); SAT O2 ABG 93 % (92-99)
[2016-09-08] MEDS: AA 4.25%/CALCIUM/LYTES/D5W 1,000 ML IV SCH (16:35)
[2016-09-08 16:45] LABS: FIO2 ABG 35
--- NOTE | 2016-09-08 17:29 | PDOC2 ---
PALLIATIVE CARE Palliative Care Note Palliative Care Consult requested by Dr. Arias to address goals of care/Code Status Diagnosis: 1. Acute on chronic respiratory failure, multifactorial. 2. Metabolic toxic encephalopathy. 3. Renal insufficiency. 4. Recent gastrointestinal bleed, status post cauterization on 09/04/2016 for duodenal ulcers. 5. Status post emergent arteriogram with embolization on 09/05/2016. 6. Lactic acidosis secondary to hypoperfusion and GI bleed along with infection. 7. Respiratory metabolic acidosis. 8. Hypotension, possible sepsis. Code Status: Full Code. No family at bedside. Will arrange family meeting as soon as family can be reached. 1828; Spoke with patient's Rob and step daughter. Rob was not aware of his 's condition. Reviewed medical condition. Plan family meeting 1230 tomorrow. Step daughter will notify Lan of meeting. KEILY PARDO Sep 08, 2016 17:29
[2016-09-09] VITALS (19 sets, daily range): BP systolic 103–171; BP diastolic 59–102
[2016-09-09] MEDS: AA 4.25%/CALCIUM/LYTES/D5W 1,000 ML IV SCH ×2 (04:30→16:59)
[2016-09-09 05:38] LABS: ALBUMIN 2.8 g/dL (3.4-5.0); ALBUMIN/GLOBULIN RATIO 1.1 (1.0-1.7); CALCIUM 8.1 mg/dL (8.5-10.1); CREATININE 0.8 mg/dL (0.6-1.0); GFR 71.3; TOTAL BILIRUBIN 0.6 mg/dL (0.2-1.0); TOTAL PROTEIN 5.4 g/dL (6.4-8.2)
[2016-09-09 05:39] LABS: MAGNESIUM 1.8 mg/dL (1.8-2.4); PHOSPHORUS 2.4 mg/dL (2.6-4.7); POTASSIUM 3.3 mmol/L (3.5-5.1)
[2016-09-09 05:48] LABS: BASO % 0 % (0-3); EOS % 0 % (0-3); HEMATOCRIT 29.5 % (36.0-47.0); HEMOGLOBIN 9.7 g/dL (12.0-15.5); LYMPH # 0.7 x10^3/uL (1.0-4.8); LYMPH % 4 % (24-48); MEAN CORPUSCULAR HEMOGLOBIN 29 pg (25-35); MEAN CORPUSCULAR HGB CONC 33 g/dL (31-37); MEAN CORPUSCULAR VOLUME 88 fL (79-100); MONO % 5 % (0-9); NEUT % 91 % (31-73); PLATELET COUNT 121 x10^3/uL (140-400); RED BLOOD COUNT 3.34 x10^6/uL (3.50-5.40); RED CELL DISTRIBUTION WIDTH 17.3 % (11.5-14.5); WHITE BLOOD COUNT 20.2 x10^3/uL (4.0-11.0)
[2016-09-09] MEDS: CEFEPIME HCL 1 GM in IV DEXTROSE 5% 100 ML IV SCH ×3 (06:14→23:43)
[2016-09-09] MEDS: IV DEXTROSE 5% 1,000 ML IV SCH (07:17)
[2016-09-09 07:36] LABS: HCO3 ABG 28 mmol/L (21-28); PO2 ABG 98 mmHg (65-108); SAT O2 ABG 97 % (92-99)
--- NOTE | 2016-09-09 07:47 | PDOC ---
Infectious Disease Note Subjective Subjective On BiPAP Not responsive ROS ROS GEN: Denies fevers, chills, sweats HEENT: Denies blurred vision, sore throat CV: Denies chest pain RESP: Denies shortness of air, cough GI: Denies n/v/d NEURO: Denies confusion, dizziness MSK: Denies weakness, joint pain/swelling Vital Sign Vital Signs Vital Signs Date Time Temp Pulse Resp B/P Pulse Ox O2 Delivery O2 Flow Rate FiO2 09/09/16 07:32 98.1 119 30 141/83 95 BiPAP/CPAP 98.1 09/08/16 15:31 3.0 Physical Exam PHYSICAL EXAM GENERAL: NAD, Alert HEENT: PERRL, OC/OP NECK: Supple, no JVD, no LN LUNGS: Clear HEART: S1S2, no gallop, no murmur ABD: Soft, NT, no organomegaly, no rebound EXT: No edema, no cyanosis MEDICAL RECORDS SECRETARY: Alert, oriented x 3, no focal neurologic deficit SKIN: No rash IV: ok Labs Lab Laboratory Tests Test 09/08/16 08:00 09/08/16 08:30 09/08/16 14:00 09/08/16 16:30 O2 Saturation 94% (92-99) 93% (92-99) 93% (92-99) Arterial Blood pH 7.30 (7.35-7.45) 7.28 (7.35-7.45) 7.36 (7.35-7.45) Arterial Blood pCO2 at Patient Temp 55mmHg (35-46) 54mmHg (35-46) 55mmHg (35-46) Arterial Blood pO2 at Patient Temp 70mmHg (65-108) 67mmHg (65-108) 65mmHg (65-108) Arterial Blood HCO3 26mmol/L (21-28) 25mmol/L (21-28) 30mmol/L (21-28) Arterial Blood Base Excess -1mmol/L (-3-3) -2mmol/L (-3-3) 3mmol/L (-3-3) FiO2 40 35 35 Lactic Acid Level 0.8mmol/L (0.4-2.0) Procalcitonin 1.72ng/mL (0.00-0.10) Test 4/5/17 05:10 White Blood Count 20.2x10^3/uL (4.0-11.0) Red Blood Count 3.34x10^6/uL (3.50-5.40) Hemoglobin 9.7g/dL (12.0-15.5) Hematocrit 29.5% (36.0-47.0) Mean Corpuscular Volume 88fL (79-100) Mean Corpuscular Hemoglobin 29pg (25-35) Mean Corpuscular Hemoglobin Concent 33g/dL (31-37) Red Cell Distribution Width 17.3% (11.5-14.5) Platelet Count 121x10^3/uL (140-400) Neutrophils (%) (Auto) 91% (31-73) Lymphocytes (%) (Auto) 4% (24-48) Monocytes (%) (Auto) 5% (0-9) Eosinophils (%) (Auto) 0% (0-3) Basophils (%) (Auto) 0% (0-3) Neutrophils # (Auto) 18.4x10^3uL (1.8-7.7) Lymphocytes # (Auto) 0.7x10^3/uL (1.0-4.8) Monocytes # (Auto) 1.0x10^3/uL (0.0-1.1) Eosinophils # (Auto) 0.0x10^3/uL (0.0-0.7) Basophils # (Auto) 0.0x10^3/uL (0.0-0.2) Sodium Level 148mmol/L (136-145) Potassium Level 3.3mmol/L (3.5-5.1) Chloride Level 113mmol/L (98-107) Carbon Dioxide Level 28mmol/L (21-32) Anion Gap 7 (6-14) Blood Urea Nitrogen 29mg/dL (7-20) Creatinine 0.8mg/dL (0.6-1.0) Estimated GFR (Cockcroft-Gault) 71.3 BUN/Creatinine Ratio 36 (6-20) Glucose Level 134mg/dL (70-99) Calcium Level 8.1mg/dL (8.5-10.1) Phosphorus Level 2.4mg/dL (2.6-4.7) Magnesium Level 1.8mg/dL (1.8-2.4) Total Bilirubin 0.6mg/dL (0.2-1.0) Aspartate Amino Transf (AST/SGOT) 32U/L (15-37) Alanine Aminotransferase (ALT/SGPT) 75U/L (14-59) Alkaline Phosphatase 107U/L (46-116) Total Protein 5.4g/dL (6.4-8.2) Albumin 2.8g/dL (3.4-5.0) Albumin/Globulin Ratio 1.1 (1.0-1.7) Objective Assessment Fever - better Leukocytosis - better Encephalopathy Hypernatremia - better GI bleed/Erosive gastritis & duodenal ulcers. s/p cauterization, 09/04 s/p PRBCs and emergent arteriogram-embolization w/ coiling 09/05 Anemia. s/p PRBCs times 3 Lactic acidosis likely sec to GI bleed and hypoperfusion, infection possible, less likely Minor drainage at Left hip surgery site Respiratory insufficiency on BiPAP Plan Plan of Care F/u Blood cults times 2 Cont Vanc/Fluconazole Discont Zosyn 09/08/16 sec to Sodium burden. Cefepime added labs in am supportive care Await family meeting ? overall prognosis JUAN ANTONIO PERRIN MD Sep 09, 2016 07:46
[2016-09-09] MEDS: PANTOPRAZOLE SODIUM IV 80 MG in IV NORMAL SALINE 100ML 100 ML IV SCH (08:13)
[2016-09-09] MEDS: FLUCONAZOLE 200MG/100ML PREMIX 100 ML IV SCH (08:52)
[2016-09-09] MEDS: VANCOMYCIN PER PHARMACY MC PRN (09:21)
[2016-09-09] MEDS: VANCOMYCIN 1 GM in IV DEXTROSE 5% 250 ML IV SCH (09:52)
--- NOTE | 2016-09-09 10:12 | PDOC ---
PROGRESS NOTES Subjective Subjective Pt awake and pleasant this am. Denies pain. Continues to c/o SOB with exertion. Objective Objective Pt awake and alert. NAD. VSS. Afebrile. Lung sounds diminished, but clear. Resp even and unlabored. Pt continues on BiPap. Heart with RRR. No murmurs. Abdomen soft, nondistended, and nontender. Pt remains NPO. Vital Signs Date Time Temp Pulse Resp B/P Pulse Ox O2 Delivery O2 Flow Rate FiO2 09/09/16 10:05 96 29 147/95 100 BiPAP/CPAP 09/09/16 07:55 3.0 09/09/16 07:32 98.1 98.1 Intake and Output 09/09/16 07:00 Intake Total 3947 ml Output Total 747 ml Balance 3200 ml Intake Oral 0 ml IV Total 2768 ml Other 1179 ml Output Urine Total 747 ml # Voids 2 # Bowel Movements 3 Assessment Assessment Problems Medical Problems: (1) Anemia Status: Acute (2) Hypotension Status: Acute Plan Plan of Care 1. GI bleed from large ulcer -s/p cauterization, 09/04 -emergent arteriogram-embolization w/ coiling 09/05 -PRBC x3 -Hgb 9.7 this am, stable -GI and surgery team following: monitoring at this time as pt is a poor surgical candidate based on comorbidities -on PPI 2. Acute Renal Failure with hypernatremia -Creat 1.1 upon admission, 1.1 this am -Na 142 upon admission, 148 this am. Improved -Renal team following 3. Leukocytosis -WBC 20K this am -ID team consulting -Original blood cxs negative. Repeat ordered 09/07, negative to date -UA negative -Vanc and Fluconazole 4. Hypotension -Now off of pressors 5. Lactic acidosis likely to GI bleed and hypoperfusion 6. Status post fixation of a left femoral neck fracture and subsequent reinjury below with repeat surgery -Ortho consulting -Minor serous drainage present from incision site Comment Review of Relevant I have reviewed the following items pako (where applicable) has been applied. Labs Laboratory Tests Test 09/07/16 12:00 09/08/16 05:15 09/08/16 08:00 09/08/16 08:30 White Blood Count 20.3x10^3/uL (4.0-11.0) Red Blood Count 3.47x10^6/uL (3.50-5.40) Hemoglobin 9.9g/dL (12.0-15.5) Hematocrit 30.7% (36.0-47.0) Mean Corpuscular Volume 89fL (79-100) Mean Corpuscular Hemoglobin 29pg (25-35) Mean Corpuscular Hemoglobin Concent 32g/dL (31-37) Red Cell Distribution Width 17.3% (11.5-14.5) Platelet Count 152x10^3/uL (140-400) Potassium Level 4.3mmol/L (3.5-5.1) 3.5mmol/L (3.5-5.1) Magnesium Level 1.9mg/dL (1.8-2.4) 2.0mg/dL (1.8-2.4) Sodium Level 161mmol/L (136-145) Chloride Level 124mmol/L (98-107) Carbon Dioxide Level 30mmol/L (21-32) Anion Gap 7 (6-14) Blood Urea Nitrogen 35mg/dL (7-20) Creatinine 1.1mg/dL (0.6-1.0) Estimated GFR (Cockcroft-Gault) 49.4 Glucose Level 132mg/dL (70-99) Calcium Level 8.3mg/dL (8.5-10.1) Phosphorus Level 2.9mg/dL (2.6-4.7) Albumin 3.2g/dL (3.4-5.0) O2 Saturation 94% (92-99) Arterial Blood pH 7.30 (7.35-7.45) Arterial Blood pCO2 at Patient Temp 55mmHg (35-46) Arterial Blood pO2 at Patient Temp 70mmHg (65-108) Arterial Blood HCO3 26mmol/L (21-28) Arterial Blood Base Excess -1mmol/L (-3-3) FiO2 40 Lactic Acid Level 0.8mmol/L (0.4-2.0) Procalcitonin 1.72ng/mL (0.00-0.10) Test 09/08/16 14:00 09/08/16 16:30 09/09/16 05:10 O2 Saturation 93% (92-99) 93% (92-99) Arterial Blood pH 7.28 (7.35-7.45) 7.36 (7.35-7.45) Arterial Blood pCO2 at Patient Temp 54mmHg (35-46) 55mmHg (35-46) Arterial Blood pO2 at Patient Temp 67mmHg (65-108) 65mmHg (65-108) Arterial Blood HCO3 25mmol/L (21-28) 30mmol/L (21-28) Arterial Blood Base Excess -2mmol/L (-3-3) 3mmol/L (-3-3) FiO2 35 35 White Blood Count 20.2x10^3/uL (4.0-11.0) Red Blood Count 3.34x10^6/uL (3.50-5.40) Hemoglobin 9.7g/dL (12.0-15.5) Hematocrit 29.5% (36.0-47.0) Mean Corpuscular Volume 88fL (79-100) Mean Corpuscular Hemoglobin 29pg (25-35) Mean Corpuscular Hemoglobin Concent 33g/dL (31-37) Red Cell Distribution Width 17.3% (11.5-14.5) Platelet Count 121x10^3/uL (140-400) Neutrophils (%) (Auto) 91% (31-73) Lymphocytes (%) (Auto) 4% (24-48) Monocytes (%) (Auto) 5% (0-9) Eosinophils (%) (Auto) 0% (0-3) Basophils (%) (Auto) 0% (0-3) Neutrophils # (Auto) 18.4x10^3uL (1.8-7.7) Lymphocytes # (Auto) 0.7x10^3/uL (1.0-4.8) Monocytes # (Auto) 1.0x10^3/uL (0.0-1.1) Eosinophils # (Auto) 0.0x10^3/uL (0.0-0.7) Basophils # (Auto) 0.0x10^3/uL (0.0-0.2) Sodium Level 148mmol/L (136-145) Potassium Level 3.3mmol/L (3.5-5.1) Chloride Level 113mmol/L (98-107) Carbon Dioxide Level 28mmol/L (21-32) Anion Gap 7 (6-14) Blood Urea Nitrogen 29mg/dL (7-20) Creatinine 0.8mg/dL (0.6-1.0) Estimated GFR (Cockcroft-Gault) 71.3 BUN/Creatinine Ratio 36 (6-20) Glucose Level 134mg/dL (70-99) Calcium Level 8.1mg/dL (8.5-10.1) Phosphorus Level 2.4mg/dL (2.6-4.7) Magnesium Level 1.8mg/dL (1.8-2.4) Total Bilirubin 0.6mg/dL (0.2-1.0) Aspartate Amino Transf (AST/SGOT) 32U/L (15-37) Alanine Aminotransferase (ALT/SGPT) 75U/L (14-59) Alkaline Phosphatase 107U/L (46-116) Total Protein 5.4g/dL (6.4-8.2) Albumin 2.8g/dL (3.4-5.0) Albumin/Globulin Ratio 1.1 (1.0-1.7) Laboratory Tests Test 09/08/16 14:00 09/08/16 16:30 09/09/16 05:10 O2 Saturation 93% (92-99) 93% (92-99) Arterial Blood pH 7.28 (7.35-7.45) 7.36 (7.35-7.45) Arterial Blood pCO2 at Patient Temp 54mmHg (35-46) 55mmHg (35-46) Arterial Blood pO2 at Patient Temp 67mmHg (65-108) 65mmHg (65-108) Arterial Blood HCO3 25mmol/L (21-28) 30mmol/L (21-28) Arterial Blood Base Excess -2mmol/L (-3-3) 3mmol/L (-3-3) FiO2 35 35 White Blood Count 20.2x10^3/uL (4.0-11.0) Red Blood Count 3.34x10^6/uL (3.50-5.40) Hemoglobin 9.7g/dL (12.0-15.5) Hematocrit 29.5% (36.0-47.0) Mean Corpuscular Volume 88fL (79-100) Mean Corpuscular Hemoglobin 29pg (25-35) Mean Corpuscular Hemoglobin Concent 33g/dL (31-37) Red Cell Distribution Width 17.3% (11.5-14.5) Platelet Count 121x10^3/uL (140-400) Neutrophils (%) (Auto) 91% (31-73) Lymphocytes (%) (Auto) 4% (24-48) Monocytes (%) (Auto) 5% (0-9) Eosinophils (%) (Auto) 0% (0-3) Basophils (%) (Auto) 0% (0-3) Neutrophils # (Auto) 18.4x10^3uL (1.8-7.7) Lymphocytes # (Auto) 0.7x10^3/uL (1.0-4.8) Monocytes # (Auto) 1.0x10^3/uL (0.0-1.1) Eosinophils # (Auto) 0.0x10^3/uL (0.0-0.7) Basophils # (Auto) 0.0x10^3/uL (0.0-0.2) Sodium Level 148mmol/L (136-145) Potassium Level 3.3mmol/L (3.5-5.1) Chloride Level 113mmol/L (98-107) Carbon Dioxide Level 28mmol/L (21-32) Anion Gap 7 (6-14) Blood Urea Nitrogen 29mg/dL (7-20) Creatinine 0.8mg/dL (0.6-1.0) Estimated GFR (Cockcroft-Gault) 71.3 BUN/Creatinine Ratio 36 (6-20) Glucose Level 134mg/dL (70-99) Calcium Level 8.1mg/dL (8.5-10.1) Phosphorus Level 2.4mg/dL (2.6-4.7) Magnesium Level 1.8mg/dL (1.8-2.4) Total Bilirubin 0.6mg/dL (0.2-1.0) Aspartate Amino Transf (AST/SGOT) 32U/L (15-37) Alanine Aminotransferase (ALT/SGPT) 75U/L (14-59) Alkaline Phosphatase 107U/L (46-116) Total Protein 5.4g/dL (6.4-8.2) Albumin 2.8g/dL (3.4-5.0) Albumin/Globulin Ratio 1.1 (1.0-1.7) Microbiology 09/08/16 Blood Culture - Preliminary, Resulted NO GROWTH AFTER 1 DAY Medications Current Medications Sodium Chloride 1,000 ml @ 0 mls/hr 1X ONCE IV Last administered on 14:00; Start 09/03/16 at 14:00; Stop 09/03/16 at 14:01; Status DC Sodium Chloride 1,000 ml @ 0 mls/hr 1X ONCE IV Last administered on 16:13; Start 09/03/16 at 15:45; Stop 09/03/16 at 15:46; Status DC Vancomycin HCl 1 gm/Sodium Chloride 250 ml @ 250 mls/hr 1X ONCE IV Last administered on 09/03/16 20:08; Start 09/03/16 at 20:00; Stop 09/03/16 at 20:59 ; Status DC Piperacillin Sod/ Tazobactam Sod 3.375 gm/Sodium Chloride 50 ml @ 100 mls/hr Q6HRS IV Last administered on 09/08/16 05:26; Start 09/03/16 at 20:00; Stop 09/08/16 at 08:31; Status DC Sodium Chloride 1,000 ml @ 1,000 mls/hr 1X ONCE IV Last administered on 19:00; Start 09/03/16 at 19:00; Stop 09/03/16 at 19:59; Status DC Sodium Chloride (Iv Sodium Chloride 0.9% 1000ml Bag) 1,000 ml @ 100 mls/hr Q10H IV Last administered on 09/05/16 02:13; Start 09/03/16 at 20:00; Stop 09/05 at 08:39; Status DC Pantoprazole Sodium 40 mg 40 mg DAILYAC IVP ; Start 09/04/16 at 07:30; Status Cancel Norepinephrine Bitartrate/Sodium Chloride (Levophed Vial/ Iv Sodium Chloride 0.9 % 250ml) 258 ml @ 0 mls/hr CONT PRN IV SEE I/O RECORD Last administered on 01:24; Start 09/04/16 at 03:30; Stop 09/06/16 at 12:24; Status DC Pantoprazole Sodium (Protonix Vial) 40 mg 1X ONCE IVP Last administered on 04:06; Start 09/04/16 at 04:00; Stop 09/04/16 at 04:01; Status DC Lidocaine/Sodium Bicarbonate 20 ml 20 ml STK-MED ONCE IJ ; Start 09/04/16 at 08: 40; Stop 09/04/16 at 08:41; Status DC Pantoprazole Sodium/Sodium Chloride (Protonix Iv/Iv Sodium Chloride 0.9% 100ml) 100 ml @ 10 mls/hr Q10H IV Last administered on 09/09/16 08:13; Start at 08:45 Lidocaine/Sodium Bicarbonate (Buffered Lidocaine 1%) 3 ml 1X ONCE IJ ; Start at 08:45; Stop 09/04/16 at 08:46; Status DC Heparin Sodium/ Sodium Chloride 60 unit 60 unit 1X ONCE IV ; Start 09/04/16 at 08:45; Stop 09/04/16 at 08:46; Status DC Pantoprazole Sodium 80 mg/ Sodium Chloride 100 ml @ 10 mls/hr Q10H IV ; Start 09/04/16 at 08:45; Status UNV Propofol (Diprivan) 40 ml @ As Directed STK-MED ONCE IV ; Start 09/04/16 at 10: 58; Stop 09/04/16 at 10:59; Status DC Lidocaine HCl (Lidocaine Pf 2% Vial) 5 ml STK-MED ONCE .ROUTE ; Start 09/04/16 at 10:58; Stop 09/04/16 at 10:59; Status DC Epinephrine HCl (Epinephrine Syringe) 1 mg STK-MED ONCE .ROUTE ; Start 09/04/16 at 12:02; Stop 09/04/16 at 12:03; Status DC Epinephrine HCl (Epinephrine Syringe) 1 mg STK-MED ONCE .ROUTE ; Start 09/04/16 at 12:05; Stop 09/04/16 at 12:06; Status DC Lidocaine/Sodium Bicarbonate 20 ml 20 ml STK-MED ONCE IJ ; Start 09/04/16 at 13: 12; Stop 09/04/16 at 13:13; Status DC Heparin Sodium/ Sodium Chloride 500 ml @ As Directed STK-MED ONCE .ROUTE ; Start 09/04/16 at 13:12; Stop 09/04/16 at 13:13; Status DC Epinephrine HCl (Adrenalin) 1 mg STK-MED ONCE SQ Last administered on 12:08; Start 09/04/16 at 12:08; Stop 09/04/16 at 14:25; Status DC Epinephrine HCl 1 mg 1 mg STK-MED ONCE SQ Last administered on 09/04/16 12:11 ; Start 09/04/16 at 12:11; Stop 09/04/16 at 14:25; Status DC Sodium Bicarbonate/ Sodium Chloride (Iv Sodium Chloride 0.45%) 1,050 ml @ 125 mls/hr Q8H24M IV Last administered on 09/05/16 09:06; Start 09/05/16 at 09:30; Stop 09/05/16 at 14:28; Status DC Morphine Sulfate 1 mg PRN Q4HRS PRN IV PAIN; Start 09/05/16 at 10:15; Stop at 11:45; Status DC Morphine Sulfate 2 mg PRN Q4HRS PRN IV PAIN Last administered on 09/05/16 16:31 ; Start 09/05/16 at 10:15; Stop 09/08/16 at 11:45; Status DC Desmopressin Acetate (Ddavp) 1 mcg BID SQ Last administered on 09/05/16 20:51; Start 09/05/16 at 15:00; Stop 09/06/16 at 10:13; Status DC Sodium Bicarbonate 50 meq 50 meq Q6HRS IV Last administered on 09/07/16 06:10; Start 09/05/16 at 18:00; Stop 09/07/16 at 08:51; Status DC Albumin Human 100 ml @ 100 mls/hr TID IV Last administered on 09/06/16 23:20; Start 09/05/16 at 15:00; Stop 09/07/16 at 08:51; Status DC Magnesium Sulfate/ Dextrose 50 ml @ 25 mls/hr PRN DAILY PRN IV for Mag < 1.7 on am labs; Start 09/05/16 at 14:30; Stop 09/06/16 at 06:18; Status DC Potassium Chloride 50 ml @ 50 mls/hr PRN Q6HRS PRN IV For K < 3.7; Start at 14:30 Potassium Chloride (KCl Premix 20meq) 50 ml @ 50 mls/hr PRN Q2HR PRN IV total of 40mEq for K < 3.5 Last administered on 09/09/16 07:17; Start 09/05/16 at 14:30 Iohexol (Omnipaque 300 Mg/ml) 50 ml STK-MED ONCE .ROUTE ; Start 09/05/16 at 22:27 ; Stop 09/05/16 at 22:28; Status DC Iohexol (Omnipaque 300 Mg/ml) 100 ml STK-MED ONCE .ROUTE ; Start 09/05/16 at 22: 27; Stop 09/05/16 at 22:28; Status DC Lidocaine/Sodium Bicarbonate 20 ml 20 ml STK-MED ONCE IJ ; Start 09/05/16 at 22: 27; Stop 09/05/16 at 22:28; Status DC Heparin Sodium/ Sodium Chloride 1,000 ml @ As Directed STK-MED ONCE .ROUTE ; Start 09/05/16 at 22:27; Stop 09/05/16 at 22:28; Status DC Heparin Sodium/ Sodium Chloride 1,000 unit 1X ONCE IART Last administered on 23:46; Start 09/05/16 at 23:30; Stop 09/05/16 at 23:31; Status DC Lidocaine/Sodium Bicarbonate (Buffered Lidocaine 1%) 20 ml 1X ONCE IJ Last administered on 09/05/16 23:46; Start 09/05/16 at 23:30; Stop 09/05/16 at 23:31; Status DC Iohexol (Omnipaque 300 Mg/ml) 100 ml 1X ONCE IART Last administered on 01:07; Start 09/05/16 at 23:30; Stop 09/05/16 at 23:31; Status DC Gelatin (Gelfoam Size 12-7mm) 1 each STK-MED ONCE .ROUTE ; Start 09/05/16 at 23: 35; Stop 09/05/16 at 23:36; Status DC Midazolam HCl (Versed) 2 mg STK-MED ONCE .ROUTE ; Start 09/05/16 at 23:51; Stop 09/05/16 at 23:52; Status DC Naloxone HCl (Narcan) 0.4 mg STK-MED ONCE .ROUTE ; Start 09/05/16 at 23:54; Stop 09/05/16 at 23:55; Status DC Iohexol (Omnipaque 300 Mg/ml) 50 ml STK-MED ONCE .ROUTE ; Start 09/05/16 at 23:58 ; Stop 09/05/16 at 23:59; Status DC Iohexol (Omnipaque 300 Mg/ml) 50 ml STK-MED ONCE .ROUTE ; Start 09/06/16 at 00:17 ; Stop 09/06/16 at 00:18; Status DC Midazolam HCl (Versed) 2 mg 1X ONCE IV Last administered on 09/06/16 01:08; Start 09/06/16 at 00:30; Stop 09/06/16 at 00:31; Status DC Iohexol (Omnipaque 300 Mg/ml) 150 ml 1X ONCE IART Last administered on 01:08; Start 09/06/16 at 00:30; Stop 09/06/16 at 00:31; Status DC Fentanyl Citrate (Fentanyl 2ml Vial) 100 mcg STK-MED ONCE .ROUTE ; Start at 00:23; Stop 09/06/16 at 00:24; Status DC Norepinephrine Bitartrate 4 mg 4 mg STK-MED ONCE IV ; Start 09/06/16 at 00:43; Stop 09/06/16 at 00:44; Status DC Dopamine HCl/ Dextrose 250 ml @ As Directed STK-MED ONCE IV ; Start 09/06/16 at 00:53; Stop 09/06/16 at 00:55; Status DC Diphenhydramine HCl (Benadryl) 50 mg STK-MED ONCE .ROUTE ; Start 09/06/16 at 01: 02; Stop 09/06/16 at 01:03; Status DC Fentanyl Citrate (Fentanyl 2ml Vial) 25 mcg 1X ONCE IV Last administered on 01:22; Start 09/06/16 at 01:30; Stop 09/06/16 at 01:31; Status DC Diphenhydramine HCl 25 mg 25 mg 1X ONCE IVP Last administered on 09/06/16 01: 25; Start 09/06/16 at 01:30; Stop 09/06/16 at 01:31; Status DC Norepinephrine Bitartrate 8 mg/ Sodium Chloride 258 ml @ 0 mls/hr 1X ONCE IV Last administered on 09/06/16 01:26; Start 09/06/16 at 01:30; Stop 09/06/16 at 01: 31; Status DC Dopamine HCl/ Dextrose 250 ml @ 9.952 mls/ hr 1X ONCE IV Last administered on 09/06/16 01:22; Start 09/06/16 at 01:15; Stop 09/07/16 at 02:22; Status DC Lidocaine HCl 100 mg 100 mg STK-MED ONCE .ROUTE ; Start 09/06/16 at 03:32; Stop 09/06/16 at 03:33; Status DC Phytonadione 10 mg/Sodium Chloride 51 ml @ 102 mls/hr 1X ONCE IV ; Start at 04:30; Stop 09/06/16 at 08:49; Status DC Magnesium Sulfate/ Dextrose 50 ml @ 25 mls/hr PRN DAILY PRN IV for Mag < 1.7 on am labs; Start 09/06/16 at 06:30 Sodium Chloride 500 ml @ 500 mls/hr PRN QID PRN IV UO< 30cc/hr over previous 6hrs; Start 09/06/16 at 06:30 Phenylephrine HCl/ Sodium Chloride (Miky-Synephrine Inj/Iv Sodium Chloride 0.9% 250ml) 252 ml @ 0 mls/hr CONT PRN IV SEE I/O RECORD; Start 09/06/16 at 08:30 Phytonadione (Vitamin K) 10 mg 1X ONCE SQ Last administered on 09/06/16 09:43 ; Start 09/06/16 at 09:30; Stop 09/06/16 at 09:31; Status DC Pantoprazole Sodium 40 mg 40 mg 1X ONCE IVP Last administered on 09/06/16 09: 44; Start 09/06/16 at 09:30; Stop 09/06/16 at 09:31; Status DC Vasopressin 40 unit/Dextrose 102 ml @ 6 mls/hr CONT PRN IV SEE I/O RECORD Last administered on 09/07/16 06:00; Start 09/06/16 at 10:00 Norepinephrine Bitartrate 8 mg/ Dextrose 258 ml @ 0 mls/hr CONT PRN IV . Last administered on 09/06/16 16:32; Start 09/06/16 at 12:30 Potassium Chloride 50 ml @ 50 mls/hr Q2H IV Last administered on 09/06/16 17:20 ; Start 09/06/16 at 15:00; Stop 09/06/16 at 17:59; Status DC Dextrose 1,000 ml @ 100 mls/hr Q10H IV Last administered on 09/09/16 07:17; Start 09/06/16 at 20:00 Phenylephrine HCl 1 mg 1 mg STK-MED ONCE IV ; Start 09/05/16 at 12:00; Stop at 08:22; Status DC Potassium Chloride 50 ml @ 50 mls/hr Q2H IV Last administered on 09/07/16 10:49 ; Start 09/07/16 at 10:00; Stop 09/07/16 at 12:59; Status DC Fluconazole/ Sodium Chloride (Diflucan 200mg/ 100ml Premix) 100 ml @ 100 mls/ hr Q24H IV Last administered on 09/09/16 08:52; Start 09/08/16 at 09:00 Vancomycin HCl 1 each 1 each PRN DAILY PRN MC SEE COMMENTS Last administered on 09/09/16 09:21; Start 09/08/16 at 08:00 Vancomycin HCl 1.5 gm/Sodium Chloride 500 ml @ 250 mls/hr 1X ONCE IV ; Start 09/08/16 at 09:00; Stop 09/08/16 at 09:00; Status DC Cefepime HCl 1 gm/ Sodium Chloride 50 ml @ 100 mls/hr Q8HRS IV ; Start 09/08/16 at 14:00; Stop 09/08/16 at 14:00; Status DC Vancomycin HCl 1.5 gm/Dextrose 500 ml @ 250 mls/hr 1X ONCE IV Last administered on 09/08/16 09:29; Start 09/08/16 at 09:00; Stop 09/08/16 at 10:59; Status DC Cefepime HCl 1 gm/ Dextrose 100 ml @ 200 mls/hr Q8HRS IV Last administered on 09/09/16 06:14; Start 09/08/16 at 14:00 Vancomycin HCl/ Dextrose 250 ml @ 250 mls/hr Q24H IV Last administered on 09:52; Start 09/09/16 at 09:00 Vancomycin HCl 1 each 1X ONCE MC ; Start 09/10/16 at 08:30; Stop 09/10/16 at 08: 31 Sodium Bicarbonate 100 meq 100 meq 1X ONCE IV Last administered on 09/08/16 14 :37; Start 09/08/16 at 14:45; Stop 09/08/16 at 14:46; Status DC Amino Acids/ Electrolytes/ Dextrose (Clinimix E 4.25%-5% Solution) 1,000 ml @ 80 mls/hr [id number] IV Last administered on 09/09/16 04:30; Start 09/08/16 at 16: 00 Active Scripts Active Hydrocodone-Apap 5-325 (Hydrocodone Bit/Acetaminophen) 1 Each Tablet 2 Tab PO PRN Q4HRS PRN Reported Duoneb 0.5-3(2.5) Mg/3 Ml (Albuterol/Ipratropium) 3 Ml Ampul.neb 3 Ml NEB QID PRN Xanax (Alprazolam) 0.5 Mg Tablet 1 Tab PO Q8HRS PRN Senna-Docusate Sodium Tablet (Sennosides/Docusate Sodium) 1 Each Tablet 1 Each PO DAILY Coumadin (Warfarin Sodium) 2.5 Mg Tablet 1 Tab PO DAILY managed by Dr. Evnas Polyethylene Glycol 3350 255 Gm Powder 17 Gm PO DAILY PRN Proair Hfa (Albuterol Sulfate) 8.5 Gm Hfa.aer.ad Valsartan-Hctz 160-12.5 Mg Tab (Valsartan/Hydrochlorothiazide) 1 Each Tablet 1 Each PO DAILY Combivent Respimat Inhal (Ipratropium/Albuterol Sulfate) 4 Gm Aer.w.adap 2 Inh IH QID Albuterol Sulfate Hfa Inhaler (Albuterol Sulfate) 8.5 Gm Hfa.aer.ad 8.5 Gm IH PRN Vitals/I & O Vital Sign - Last 24 Hours 09/08/16 09/08/16 09/08/16 09/08/16 11:00 11:27 11:42 11:46 Pulse 92 Resp 24 B/P 133/100 Pulse Ox 100 98 O2 Delivery BiPAP/CPAP BiPAP/CPAP Bi-pap BiPAP/CPAP O2 Flow Rate 3.0 09/08/16 09/08/16 09/08/16 09/08/16 12:00 13:00 13:04 14:26 Temp 98.2 98.2 Pulse 96 98 96 Resp 26 24 24 B/P 126/76 141/77 146/97 Pulse Ox 96 97 98 98 O2 Delivery BiPAP/CPAP BiPAP/CPAP BiPAP/CPAP BiPAP/CPAP 09/08/16 09/08/16 09/08/16 09/08/16 14:30 15:06 15:29 15:31 Pulse 118 Resp 26 B/P 116/97 Pulse Ox 94 96 O2 Delivery BiPAP/CPAP BiPAP/CPAP BiPAP/CPAP Bi-pap O2 Flow Rate 3.0 09/08/16 09/08/16 09/08/16 09/08/16 15:40 17:06 17:07 18:20 Pulse 106 107 104 Resp 30 30 27 B/P 139/86 141/88 163/92 Pulse Ox 98 96 98 97 O2 Delivery BiPAP/CPAP BiPAP/CPAP BiPAP/CPAP BiPAP/CPAP 09/08/16 09/08/16 09/08/16 09/08/16 19:00 19:46 20:00 20:15 Temp 98.7 98.7 Pulse 81 101 Resp 30 30 B/P 126/83 158/84 Pulse Ox 93 97 97 O2 Delivery BiPAP/CPAP Bi-pap BiPAP/CPAP BiPAP/CPAP 09/08/16 09/08/16 09/08/16 09/08/16 21:00 22:00 23:00 23:14 Pulse 109 88 90 Resp 30 30 30 B/P 141/89 144/82 156/76 Pulse Ox 96 98 98 99 O2 Delivery BiPAP/CPAP BiPAP/CPAP BiPAP/CPAP BiPAP/CPAP 09/08/16 09/09/16 09/09/16 09/09/16 23:52 00:00 01:00 02:00 Temp 98.8 98.8 Pulse 91 94 Resp 30 30 B/P 127/89 135/80 Pulse Ox 99 97 99 O2 Delivery Bi-pap BiPAP/CPAP BiPAP/CPAP BiPAP/CPAP 09/09/16 09/09/16 09/09/16 09/09/16 02:00 03:00 03:41 04:00 Temp 98.7 98.7 Pulse 91 99 70 Resp 30 30 30 B/P 151/82 132/88 150/79 Pulse Ox 98 99 99 100 O2 Delivery BiPAP/CPAP BiPAP/CPAP BiPAP/CPAP BiPAP/CPAP 4/5/17 4/5/17 4/5/17 4/5/17 04:00 05:00 05:42 06:00 Pulse 105 108 Resp 30 30 B/P 148/81 140/97 Pulse Ox 98 99 98 O2 Delivery Bi-pap BiPAP/CPAP BiPAP/CPAP BiPAP/CPAP 09/09/16 09/09/16 09/09/16 09/09/16 07:18 07:32 07:55 07:55 Temp 98.1 98.1 Pulse 119 Resp 30 B/P 141/83 Pulse Ox 100 95 O2 Delivery BiPAP/CPAP BiPAP/CPAP Bi-pap O2 Flow Rate 3.0 3.0 09/09/16 09/09/16 09/09/16 09/09/16 08:05 09:00 09:06 10:05 Pulse 118 110 96 Resp 28 28 29 B/P 149/102 144/87 147/95 Pulse Ox 96 99 100 100 O2 Delivery BiPAP/CPAP BiPAP/CPAP BiPAP/CPAP BiPAP/CPAP Intake and Output 09/08/16 09/08/16 09/09/16 15:00 23:00 07:00 Intake Total 200 ml 2458 ml 1289 ml Output Total 163 ml 376 ml 208 ml Balance 37 ml 2082 ml 1081 ml JAMIN EVANS MD Sep 09, 2016 10:12
[2016-09-09] MEDS ORDERED: hydrALAZINE 20 MG/ML VIAL. IVP PRN (10:45)
--- NOTE | 2016-09-09 10:54 | PDOC ---
SUBJECTIVE ROS ^Na and other elyte ABN Just taken off of BiPAP; un able to get ROS accurately OBJECTIVE Vital Signs Vital Signs Date Time Temp Pulse Resp B/P Pulse Ox O2 Delivery O2 Flow Rate FiO2 09/09/16 10:05 96 29 147/95 100 BiPAP/CPAP 09/09/16 07:55 3.0 09/09/16 07:32 98.1 98.1 I & 0 Intake and Output 09/09/16 06:59 Intake Total 3947 ml Output Total 797 ml Balance 3150 ml Intake Oral 0 ml IV Total 2768 ml Other 1179 ml Output Urine Total 797 ml # Voids 2 # Bowel Movements 3 PHYSICAL EXAM Physical Exam GEN: more arousable, Oriented x 0, still confused, In min resp distress EYES: Sclera anicteric , Conjunctiva Normal EN: No EN Drainage, Mucous Membranes dryish NECK: no JVD, + JVP, Supple, no Thyromegaly CVS: S1S2, + Murmur, No Gallop, No Rub,+ Edema RESP: + Rales, no Rhonchi,min Acc. Muscle Use GI: BS + ve, NO Bruit, Non Tender, Non Distended : no CVA tenderness, no Suprapubic Tenderness Assessment & Plan ^Na - improved watch trend - off IV D5W; ? DARYL - appears to have resolved. Cannot R/o ATn, UO is improving Low K - replace with KCL or K Phos based on next K level; Sliding scale K as ordered, mag is OK today edema unclear etio; IV ALB once Na corrects. SUspect RHF vs Liver etio Nutrition - ? Enteral feeding vs TPN - await GI Input COMMENT/RELEVANT DATA Meds Current Medications Medications (Trade) Dose Ordered Sig/Chrissie Start Time Stop Time Status Last Admin Dose Admin Albumin Human 100 ml @ 100 mls/hr TID 09/05/16 15:00 09/07/16 08:51 DC 09/06/16 23:20 100 MLS/HR Amino Acids/ Electrolytes/ Dextrose (Clinimix E 4.25%-5% Solution) 1,000 ml @ 80 mls/hr [id number] 09/08/16 16:00 09/09/16 04:30 80 MLS/HR Cefepime HCl 1 gm/ Dextrose 100 ml @ 200 mls/hr Q8HRS 09/08/16 14:00 09/09/16 06:14 200 MLS/HR Cefepime HCl 1 gm/ Sodium Chloride 50 ml @ 100 mls/hr Q8HRS 09/08/16 14:00 09/08/16 14:00 DC Desmopressin Acetate (Ddavp) 1 mcg BID 09/05/16 15:00 09/06/16 10:13 DC 09/05/16 20:51 1 MCG Dextrose 1,000 ml @ 100 mls/hr Q10H 09/06/16 20:00 09/09/16 07:17 100 MLS/HR Diphenhydramine HCl (Benadryl) 50 mg STK-MED ONCE 09/06/16 01:02 09/06/16 01:03 DC Diphenhydramine HCl 25 mg 25 mg 1X ONCE 09/06/16 01:30 09/06/16 01:31 DC 09/06/16 01:25 25 MG Dopamine HCl/ Dextrose 250 ml @ 9.952 mls/ hr 1X ONCE 09/06/16 01:15 09/07/16 02:22 DC 09/06/16 01:22 9.952 MLS/HR Epinephrine HCl (Adrenalin) 1 mg STK-MED ONCE 09/04/16 12:08 09/04/16 14:25 DC 09/04/16 12:08 0.2 MG Epinephrine HCl (Epinephrine Syringe) 1 mg STK-MED ONCE 09/04/16 12:05 09/04/16 12:06 DC Epinephrine HCl 1 mg 1 mg STK-MED ONCE 09/04/16 12:11 09/04/16 14:25 DC 09/04/16 12:11 0.4 MG Fentanyl Citrate (Fentanyl 2ml Vial) 25 mcg 1X ONCE 09/06/16 01:30 09/06/16 01:31 DC 09/06/16 01:22 25 MCG Fluconazole/ Sodium Chloride (Diflucan 200mg/ 100ml Premix) 100 ml @ 100 mls/hr Q24H 09/08/16 09:00 09/09/16 08:52 100 MLS/HR Gelatin (Gelfoam Size 12-7mm) 1 each STK-MED ONCE 09/05/16 23:35 09/05/16 23:36 DC Heparin Sodium/ Sodium Chloride 1,000 unit 1X ONCE 09/05/16 23:30 09/05/16 23:31 DC 09/05/16 23:46 1,000 UNIT Heparin Sodium/ Sodium Chloride 60 unit 60 unit 1X ONCE 09/04/16 08:45 09/04/16 08:46 DC Hydralazine HCl (Apresoline) 10 mg PRN Q6HRS PRN 09/09/16 10:45 Iohexol (Omnipaque 300 Mg/ml) 150 ml 1X ONCE 09/06/16 00:30 09/06/16 00:31 DC 09/06/16 01:08 150 ML Lidocaine HCl (Lidocaine Pf 2% Vial) 5 ml STK-MED ONCE 09/04/16 10:58 09/04/16 10:59 DC Lidocaine HCl 100 mg 100 mg STK-MED ONCE 09/06/16 03:32 09/06/16 03:33 DC Lidocaine/Sodium Bicarbonate (Buffered Lidocaine 1%) 20 ml 1X ONCE 09/05/16 23:30 09/05/16 23:31 DC 09/05/16 23:46 20 ML Lidocaine/Sodium Bicarbonate 20 ml 20 ml STK-MED ONCE 09/04/16 08:40 09/04/16 08:41 DC Magnesium Sulfate/ Dextrose 50 ml @ 25 mls/hr PRN DAILY PRN 09/06/16 06:30 Midazolam HCl (Versed) 2 mg 1X ONCE 09/06/16 00:30 09/06/16 00:31 DC 09/06/16 01:08 2 MG Morphine Sulfate 2 mg PRN Q4HRS PRN 09/05/16 10:15 09/08/16 11:45 DC 09/05/16 16:31 2 MG Naloxone HCl (Narcan) 0.4 mg STK-MED ONCE 09/05/16 23:54 09/05/16 23:55 DC Norepinephrine Bitartrate (Levophed Vial) 4 mg STK-MED ONCE 09/06/16 00:43 09/06/16 00:44 DC Norepinephrine Bitartrate 8 mg/ Dextrose 258 ml @ 0 mls/hr CONT PRN 09/06/16 12:30 09/06/16 16:32 9.4 MLS/HR Norepinephrine Bitartrate 8 mg/ Sodium Chloride 258 ml @ 0 mls/hr 1X ONCE 09/06/16 01:30 09/06/16 01:31 DC 09/06/16 01:26 58.05 MLS/HR Norepinephrine Bitartrate/Sodium Chloride (Levophed Vial/ Iv Sodium Chloride 0.9% 250ml) 258 ml @ 0 mls/hr CONT PRN 09/04/16 03:30 09/06/16 12:24 DC 09/06/16 01:24 58.05 MLS/HR Pantoprazole Sodium (Protonix Vial) 40 mg 1X ONCE 09/04/16 04:00 09/04/16 04:01 DC 09/04/16 04:06 40 MG Pantoprazole Sodium 40 mg 40 mg 1X ONCE 09/06/16 09:30 09/06/16 09:31 DC 09/06/16 09:44 40 MG Pantoprazole Sodium 80 mg/ Sodium Chloride 100 ml @ 10 mls/hr Q10H 09/04/16 08:45 UNV Pantoprazole Sodium/Sodium Chloride (Protonix Iv/Iv Sodium Chloride 0.9% 100ml) 100 ml @ 10 mls/hr Q10H 09/04/16 08:45 09/09/16 08:13 10 MLS/HR Phenylephrine HCl 1 mg 1 mg STK-MED ONCE 09/05/16 12:00 09/07/16 08:22 DC Phenylephrine HCl/ Sodium Chloride (Miky-Synephrine Inj/Iv Sodium Chloride 0.9% 250ml) 252 ml @ 0 mls/hr CONT PRN 09/06/16 08:30 Phytonadione (Vitamin K) 10 mg 1X ONCE 09/06/16 09:30 09/06/16 09:31 DC 09/06/16 09:43 10 MG Phytonadione 10 mg/Sodium Chloride 51 ml @ 102 mls/hr 1X ONCE 09/06/16 04:30 09/06/16 08:49 DC Piperacillin Sod/ Tazobactam Sod 3.375 gm/Sodium Chloride 50 ml @ 100 mls/hr Q6HRS 09/03/16 20:00 09/08/16 08:31 DC 09/08/16 05:26 100 MLS/HR Potassium Chloride 50 ml @ 50 mls/hr Q2H 09/07/16 10:00 09/07/16 12:59 DC 09/07/16 10:49 50 MLS/HR Potassium Chloride (KCl Premix 20meq) 50 ml @ 50 mls/hr PRN Q2HR PRN 09/05/16 14:30 09/09/16 07:17 50 MLS/HR Propofol (Diprivan) 40 ml @ As Directed STK-MED ONCE 09/04/16 10:58 09/04/16 10:59 DC Sodium Bicarbonate 100 meq 100 meq 1X ONCE 09/08/16 14:45 09/08/16 14:46 DC 09/08/16 14:37 100 MEQ Sodium Bicarbonate 50 meq 50 meq Q6HRS 09/05/16 18:00 09/07/16 08:51 DC 09/07/16 06:10 50 MEQ Sodium Bicarbonate/ Sodium Chloride (Iv Sodium Chloride 0.45%) 1,050 ml @ 125 mls/hr Q8H24M 09/05/16 09:30 09/05/16 14:28 DC 09/05/16 09:06 125 MLS/HR Sodium Chloride 500 ml @ 500 mls/hr PRN QID PRN 09/06/16 06:30 Vancomycin HCl 1 each 1X ONCE 09/10/16 08:30 09/10/16 08:31 Vancomycin HCl 1.5 gm/Dextrose 500 ml @ 250 mls/hr 1X ONCE 09/08/16 09:00 09/08/16 10:59 DC 09/08/16 09:29 250 MLS/HR Vancomycin HCl 1.5 gm/Sodium Chloride 500 ml @ 250 mls/hr 1X ONCE 09/08/16 09:00 09/08/16 09:00 DC Vancomycin HCl 1 each 1 each PRN DAILY PRN 09/08/16 08:00 09/09/16 09:21 1 EACH Vancomycin HCl 1 gm/Sodium Chloride 250 ml @ 250 mls/hr 1X ONCE 09/03/16 20:00 09/03/16 20:59 DC 09/03/16 20:08 250 MLS/HR Vancomycin HCl/ Dextrose 250 ml @ 250 mls/hr Q24H 09/09/16 09:00 09/09/16 09:52 250 MLS/HR Vasopressin 40 unit/Dextrose 102 ml @ 6 mls/hr CONT PRN 09/06/16 10:00 09/07/16 06:00 6 MLS/HR Lab Laboratory Tests Test 09/08/16 14:00 09/08/16 16:30 09/09/16 05:10 O2 Saturation 93% (92-99) 93% (92-99) Arterial Blood pH 7.28 (7.35-7.45) 7.36 (7.35-7.45) Arterial Blood pCO2 at Patient Temp 54mmHg (35-46) 55mmHg (35-46) Arterial Blood pO2 at Patient Temp 67mmHg (65-108) 65mmHg (65-108) Arterial Blood HCO3 25mmol/L (21-28) 30mmol/L (21-28) Arterial Blood Base Excess -2mmol/L (-3-3) 3mmol/L (-3-3) FiO2 35 35 White Blood Count 20.2x10^3/uL (4.0-11.0) Red Blood Count 3.34x10^6/uL (3.50-5.40) Hemoglobin 9.7g/dL (12.0-15.5) Hematocrit 29.5% (36.0-47.0) Mean Corpuscular Volume 88fL (79-100) Mean Corpuscular Hemoglobin 29pg (25-35) Mean Corpuscular Hemoglobin Concent 33g/dL (31-37) Red Cell Distribution Width 17.3% (11.5-14.5) Platelet Count 121x10^3/uL (140-400) Neutrophils (%) (Auto) 91% (31-73) Lymphocytes (%) (Auto) 4% (24-48) Monocytes (%) (Auto) 5% (0-9) Eosinophils (%) (Auto) 0% (0-3) Basophils (%) (Auto) 0% (0-3) Neutrophils # (Auto) 18.4x10^3uL (1.8-7.7) Lymphocytes # (Auto) 0.7x10^3/uL (1.0-4.8) Monocytes # (Auto) 1.0x10^3/uL (0.0-1.1) Eosinophils # (Auto) 0.0x10^3/uL (0.0-0.7) Basophils # (Auto) 0.0x10^3/uL (0.0-0.2) Sodium Level 148mmol/L (136-145) Potassium Level 3.3mmol/L (3.5-5.1) Chloride Level 113mmol/L (98-107) Carbon Dioxide Level 28mmol/L (21-32) Anion Gap 7 (6-14) Blood Urea Nitrogen 29mg/dL (7-20) Creatinine 0.8mg/dL (0.6-1.0) Estimated GFR (Cockcroft-Gault) 71.3 BUN/Creatinine Ratio 36 (6-20) Glucose Level 134mg/dL (70-99) Calcium Level 8.1mg/dL (8.5-10.1) Phosphorus Level 2.4mg/dL (2.6-4.7) Magnesium Level 1.8mg/dL (1.8-2.4) Total Bilirubin 0.6mg/dL (0.2-1.0) Aspartate Amino Transf (AST/SGOT) 32U/L (15-37) Alanine Aminotransferase (ALT/SGPT) 75U/L (14-59) Alkaline Phosphatase 107U/L (46-116) Total Protein 5.4g/dL (6.4-8.2) Albumin 2.8g/dL (3.4-5.0) Albumin/Globulin Ratio 1.1 (1.0-1.7) TARUN HUSTON MD Sep 09, 2016 10:53
[2016-09-09 11:00] LABS: PLT ESTIMATE DECREASED (ADEQUATE)
[2016-09-09] MEDS: POTASSIUM PHOSPHATE DIBASIC 13.6 MMOL in IV NORMAL SALINE 250ML 250 ML IV SCH ×2 (11:00→13:00)
[2016-09-09 11:01] LABS: ANISOCYTOSIS SLIGHT
[2016-09-09 11:08] LABS: HOWELL-JOLLY BODIES PRESENT
--- NOTE | 2016-09-09 11:32 | PDOC ---
PULMONARY PROGRESS NOTES Subjective ABG much improved Vitals Vital Signs Date Time Temp Pulse Resp B/P Pulse Ox O2 Delivery O2 Flow Rate FiO2 09/09/16 10:58 115 26 171/97 100 Nasal Cannula 3.0 09/09/16 07:32 98.1 98.1 General: Alert Lungs: Other (decrease bs) Cardiovascular: S1 Abdomen: Soft, Non-tender Extremities: No Edema Skin: Warm Labs Laboratory Tests Test 09/07/16 12:00 09/08/16 05:15 09/08/16 08:00 09/08/16 08:30 White Blood Count 20.3x10^3/uL (4.0-11.0) Red Blood Count 3.47x10^6/uL (3.50-5.40) Hemoglobin 9.9g/dL (12.0-15.5) Hematocrit 30.7% (36.0-47.0) Mean Corpuscular Volume 89fL (79-100) Mean Corpuscular Hemoglobin 29pg (25-35) Mean Corpuscular Hemoglobin Concent 32g/dL (31-37) Red Cell Distribution Width 17.3% (11.5-14.5) Platelet Count 152x10^3/uL (140-400) Potassium Level 4.3mmol/L (3.5-5.1) 3.5mmol/L (3.5-5.1) Magnesium Level 1.9mg/dL (1.8-2.4) 2.0mg/dL (1.8-2.4) Sodium Level 161mmol/L (136-145) Chloride Level 124mmol/L (98-107) Carbon Dioxide Level 30mmol/L (21-32) Anion Gap 7 (6-14) Blood Urea Nitrogen 35mg/dL (7-20) Creatinine 1.1mg/dL (0.6-1.0) Estimated GFR (Cockcroft-Gault) 49.4 Glucose Level 132mg/dL (70-99) Calcium Level 8.3mg/dL (8.5-10.1) Phosphorus Level 2.9mg/dL (2.6-4.7) Albumin 3.2g/dL (3.4-5.0) O2 Saturation 94% (92-99) Arterial Blood pH 7.30 (7.35-7.45) Arterial Blood pCO2 at Patient Temp 55mmHg (35-46) Arterial Blood pO2 at Patient Temp 70mmHg (65-108) Arterial Blood HCO3 26mmol/L (21-28) Arterial Blood Base Excess -1mmol/L (-3-3) FiO2 40 Lactic Acid Level 0.8mmol/L (0.4-2.0) Procalcitonin 1.72ng/mL (0.00-0.10) Test 09/08/16 14:00 09/08/16 16:30 09/09/16 05:10 O2 Saturation 93% (92-99) 93% (92-99) Arterial Blood pH 7.28 (7.35-7.45) 7.36 (7.35-7.45) Arterial Blood pCO2 at Patient Temp 54mmHg (35-46) 55mmHg (35-46) Arterial Blood pO2 at Patient Temp 67mmHg (65-108) 65mmHg (65-108) Arterial Blood HCO3 25mmol/L (21-28) 30mmol/L (21-28) Arterial Blood Base Excess -2mmol/L (-3-3) 3mmol/L (-3-3) FiO2 35 35 White Blood Count 20.2x10^3/uL (4.0-11.0) Red Blood Count 3.34x10^6/uL (3.50-5.40) Hemoglobin 9.7g/dL (12.0-15.5) Hematocrit 29.5% (36.0-47.0) Mean Corpuscular Volume 88fL (79-100) Mean Corpuscular Hemoglobin 29pg (25-35) Mean Corpuscular Hemoglobin Concent 33g/dL (31-37) Red Cell Distribution Width 17.3% (11.5-14.5) Platelet Count 121x10^3/uL (140-400) Neutrophils (%) (Auto) 91% (31-73) Lymphocytes (%) (Auto) 4% (24-48) Monocytes (%) (Auto) 5% (0-9) Eosinophils (%) (Auto) 0% (0-3) Basophils (%) (Auto) 0% (0-3) Neutrophils # (Auto) 18.4x10^3uL (1.8-7.7) Lymphocytes # (Auto) 0.7x10^3/uL (1.0-4.8) Monocytes # (Auto) 1.0x10^3/uL (0.0-1.1) Eosinophils # (Auto) 0.0x10^3/uL (0.0-0.7) Basophils # (Auto) 0.0x10^3/uL (0.0-0.2) Segmented Neutrophils % 95% (35-66) Lymphocytes % 2% (24-48) Monocytes % 3% (0-10) Platelet Estimate Decreased (ADEQUATE) Anisocytosis Slight Pappenheimer Bodies Present [place] Bodies Present Sodium Level 148mmol/L (136-145) Potassium Level 3.3mmol/L (3.5-5.1) Chloride Level 113mmol/L (98-107) Carbon Dioxide Level 28mmol/L (21-32) Anion Gap 7 (6-14) Blood Urea Nitrogen 29mg/dL (7-20) Creatinine 0.8mg/dL (0.6-1.0) Estimated GFR (Cockcroft-Gault) 71.3 BUN/Creatinine Ratio 36 (6-20) Glucose Level 134mg/dL (70-99) Calcium Level 8.1mg/dL (8.5-10.1) Phosphorus Level 2.4mg/dL (2.6-4.7) Magnesium Level 1.8mg/dL (1.8-2.4) Total Bilirubin 0.6mg/dL (0.2-1.0) Aspartate Amino Transf (AST/SGOT) 32U/L (15-37) Alanine Aminotransferase (ALT/SGPT) 75U/L (14-59) Alkaline Phosphatase 107U/L (46-116) Total Protein 5.4g/dL (6.4-8.2) Albumin 2.8g/dL (3.4-5.0) Albumin/Globulin Ratio 1.1 (1.0-1.7) Laboratory Tests Test 09/08/16 14:00 09/08/16 16:30 09/09/16 05:10 O2 Saturation 93% (92-99) 93% (92-99) Arterial Blood pH 7.28 (7.35-7.45) 7.36 (7.35-7.45) Arterial Blood pCO2 at Patient Temp 54mmHg (35-46) 55mmHg (35-46) Arterial Blood pO2 at Patient Temp 67mmHg (65-108) 65mmHg (65-108) Arterial Blood HCO3 25mmol/L (21-28) 30mmol/L (21-28) Arterial Blood Base Excess -2mmol/L (-3-3) 3mmol/L (-3-3) FiO2 35 35 White Blood Count 20.2x10^3/uL (4.0-11.0) Red Blood Count 3.34x10^6/uL (3.50-5.40) Hemoglobin 9.7g/dL (12.0-15.5) Hematocrit 29.5% (36.0-47.0) Mean Corpuscular Volume 88fL (79-100) Mean Corpuscular Hemoglobin 29pg (25-35) Mean Corpuscular Hemoglobin Concent 33g/dL (31-37) Red Cell Distribution Width 17.3% (11.5-14.5) Platelet Count 121x10^3/uL (140-400) Neutrophils (%) (Auto) 91% (31-73) Lymphocytes (%) (Auto) 4% (24-48) Monocytes (%) (Auto) 5% (0-9) Eosinophils (%) (Auto) 0% (0-3) Basophils (%) (Auto) 0% (0-3) Neutrophils # (Auto) 18.4x10^3uL (1.8-7.7) Lymphocytes # (Auto) 0.7x10^3/uL (1.0-4.8) Monocytes # (Auto) 1.0x10^3/uL (0.0-1.1) Eosinophils # (Auto) 0.0x10^3/uL (0.0-0.7) Basophils # (Auto) 0.0x10^3/uL (0.0-0.2) Segmented Neutrophils % 95% (35-66) Lymphocytes % 2% (24-48) Monocytes % 3% (0-10) Platelet Estimate Decreased (ADEQUATE) Anisocytosis Slight Pappenheimer Bodies Present [place] Bodies Present Sodium Level 148mmol/L (136-145) Potassium Level 3.3mmol/L (3.5-5.1) Chloride Level 113mmol/L (98-107) Carbon Dioxide Level 28mmol/L (21-32) Anion Gap 7 (6-14) Blood Urea Nitrogen 29mg/dL (7-20) Creatinine 0.8mg/dL (0.6-1.0) Estimated GFR (Cockcroft-Gault) 71.3 BUN/Creatinine Ratio 36 (6-20) Glucose Level 134mg/dL (70-99) Calcium Level 8.1mg/dL (8.5-10.1) Phosphorus Level 2.4mg/dL (2.6-4.7) Magnesium Level 1.8mg/dL (1.8-2.4) Total Bilirubin 0.6mg/dL (0.2-1.0) Aspartate Amino Transf (AST/SGOT) 32U/L (15-37) Alanine Aminotransferase (ALT/SGPT) 75U/L (14-59) Alkaline Phosphatase 107U/L (46-116) Total Protein 5.4g/dL (6.4-8.2) Albumin 2.8g/dL (3.4-5.0) Albumin/Globulin Ratio 1.1 (1.0-1.7) Medications Active Scripts Medications Dose Route/Sig Days Date Category Dose Instructions Duoneb 0.5-3(2.5) Mg/3 Ml (Albuterol/Ipratropium) 3 Ml Ampul.neb 3 Ml NEB QID PRN 08/28/16 Reported Xanax (Alprazolam) 0.5 Mg Tablet 1 Tab PO Q8HRS PRN 08/28/16 Reported Senna-Docusate Sodium Tablet (Sennosides/Docusate Sodium) 1 Each Tablet 1 Each PO DAILY 08/28/16 Reported Coumadin (Warfarin Sodium) 2.5 Mg Tablet 1 Tab PO DAILY 08/28/[address] Ochoa Polyethylene Glycol 3350 255 Gm Powder 17 Gm PO DAILY PRN 08/25/16 Reported Hydrocodone-Apap 5-325 (Hydrocodone Bit/Acetaminophen) 1 Each Tablet 2 Tab PO PRN Q4HRS PRN 08/17/16 Rx Proair Hfa (Albuterol Sulfate) 8.5 Gm Hfa.aer.ad 08/13/16 Reported Valsartan-Hctz 160-12.5 Mg Tab (Valsartan/Hydrochlorothiazide) 1 Each Tablet 1 Each PO DAILY 08/12/16 Reported Combivent Respimat Inhal (Ipratropium/Albuterol Sulfate) 4 Gm Aer.w.adap 2 Inh IH QID 08/12/16 Reported Albuterol Sulfate Hfa Inhaler (Albuterol Sulfate) 8.5 Gm Hfa.aer.ad 8.5 Gm IH PRN 08/28/13 Reported Impression . 1. Acute on chronic respiratory failure, multifactorial. 2. Metabolic toxic encephalopathy. improved. 3. Renal insufficiency. 4. Recent gastrointestinal bleed, status post cauterization on 09/04/2016 for duodenal ulcers. 5. Status post emergent arteriogram with embolization on 09/05/2016. 6. Lactic acidosis secondary to hypoperfusion and GI bleed along with infection. improved. Plan . 1. Continue current support with prn BiPAP. 2. nasal canula today 3. IV antibiotics. 4. off Pressors. 5. Protonix. 6. palliative care meeting in 24 hrs IVANIA MARIN MD Sep 09, 2016 11:32
--- NOTE | 2016-09-09 12:27 | PDOC ---
Subjective: Subjective: Nods "yes" to every question. Objective: Objective: Per RN - no dark stools today, still on BiPAP, palliative care meeting today. Vital Signs: Vital Signs Date Time Temp Pulse Resp B/P Pulse Ox O2 Delivery O2 Flow Rate FiO2 09/09/16 12:20 114 26 142/78 92 Nasal Cannula 1.0 09/09/16 07:32 98.1 98.1 Labs: Laboratory Tests Test 09/08/16 14:00 09/08/16 16:30 09/09/16 05:10 O2 Saturation 93% 93% Arterial Blood pH 7.28 7.36 Arterial Blood pCO2 at Patient Temp 54mmHg 55mmHg Arterial Blood pO2 at Patient Temp 67mmHg 65mmHg Arterial Blood HCO3 25mmol/L 30mmol/L Arterial Blood Base Excess -2mmol/L 3mmol/L FiO2 35 35 White Blood Count 20.2x10^3/uL Red Blood Count 3.34x10^6/uL Hemoglobin 9.7g/dL Hematocrit 29.5% Mean Corpuscular Volume 88fL Mean Corpuscular Hemoglobin 29pg Mean Corpuscular Hemoglobin Concent 33g/dL Red Cell Distribution Width 17.3% Platelet Count 121x10^3/uL Neutrophils (%) (Auto) 91% Lymphocytes (%) (Auto) 4% Monocytes (%) (Auto) 5% Eosinophils (%) (Auto) 0% Basophils (%) (Auto) 0% Neutrophils # (Auto) 18.4x10^3uL Lymphocytes # (Auto) 0.7x10^3/uL Monocytes # (Auto) 1.0x10^3/uL Eosinophils # (Auto) 0.0x10^3/uL Basophils # (Auto) 0.0x10^3/uL Segmented Neutrophils % 95% Lymphocytes % 2% Monocytes % 3% Platelet Estimate Decreased Anisocytosis Slight Pappenheimer Bodies Present [place] Bodies Present Sodium Level 148mmol/L Potassium Level 3.3mmol/L Chloride Level 113mmol/L Carbon Dioxide Level 28mmol/L Anion Gap 7 Blood Urea Nitrogen 29mg/dL Creatinine 0.8mg/dL Estimated GFR (Cockcroft-Gault) 71.3 BUN/Creatinine Ratio 36 Glucose Level 134mg/dL Calcium Level 8.1mg/dL Phosphorus Level 2.4mg/dL Magnesium Level 1.8mg/dL Total Bilirubin 0.6mg/dL Aspartate Amino Transf (AST/SGOT) 32U/L Alanine Aminotransferase (ALT/SGPT) 75U/L Alkaline Phosphatase 107U/L Total Protein 5.4g/dL Albumin 2.8g/dL Albumin/Globulin Ratio 1.1 PE: GEN: NAD LUNGS: BiPAP HEART: tachycardic ABD: BS+, S/ND NEURO/PSYCH: awake, confused A/P: Duodenal ulcer s/p endotherapy, s/p IR embolization -surgery following, Hgb improved/stable -melena/dark stools has slowed -on PPN, IV PPI Resp failure -- Await palliative care meeting. Try clears. FELICITAS BEACH Sep 09, 2016 12:27
[2016-09-09] MEDS ORDERED: SODIUM PHOSPHATE 20 MMOL in IV DEXTROSE 5% 250 ML IV ONE (14:00)
[2016-09-09 14:33] LABS: FIO2 ABG 35; PCO2 ABG 50 mmHg (35-46); PH ABG 7.36 (7.35-7.45)
--- NOTE | 2016-09-09 14:35 | PDOC2 ---
PALLIATIVE CARE Palliative Care Note Palliative Care Patient more alert today. Off Bipap. Spoke with patient. Oriented to person, place. Denies pain or SOB. Follows simple commands. Slow to respond--family states this is normal for her. Discussed Code Status; Patient does not want intubation or Chest Compressions. This was confirmed at the bedside with cousin Estela. Estela states patient had told her the same. Received permission to meet with family. Met with sons Jose Antonio and Lan. Estela--cousin; Kevin ([phone]) Tanya- -Kevin's daughter. Reviewed medical condition: Respiratory Failure--improved- off BiPap; GI Bleed improved after interventional procedure--currently not active bleeding; Renal insufficiency. 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 Family supportive of patient wishes for DNR/DNI. Informed without this attempt patient likely would . Discussed rehabilitation. Patient will likely need more rehabilitation to try to get stronger. Estela would like to take her to her home when patient is strong enough. Discussed Advanced Directive: Patient has no health care directive. Will encourage patient to complete directive. Family would like to update financial directive. Encouraged them to pursue legal [place] to complete. Discussed swallowing issues. Patient will likely need swallow evaluation prior to feeding. Will discuss options for feeding depending on outcome of swallow evaluation Outside the Hospital DNR/DNI form signed by son Jose Antonio. Kevin supportive of DNR/DNI but declined to sign form. Plan: DNR./DNI per patient request and family support. Continue current treatment plan including rehabilitation. KEILY PARDO Sep 09, 2016 14:35
[2016-09-10 03:00] VITALS: BP 120/69
[2016-09-10] MEDS: AA 4.25%/CALCIUM/LYTES/D5W 1,000 ML IV SCH ×2 (05:59→18:16)
[2016-09-10] MEDS: CEFEPIME HCL 1 GM in IV DEXTROSE 5% 100 ML IV SCH ×3 (05:59→21:16)
[2016-09-10 06:34] LABS: ALBUMIN 2.6 g/dL (3.4-5.0); CALCIUM 8.3 mg/dL (8.5-10.1); CREATININE 0.8 mg/dL (0.6-1.0); GFR 71.3; PHOSPHORUS 4.8 mg/dL (2.6-4.7); POTASSIUM 4.1 mmol/L (3.5-5.1)
[2016-09-10 06:35] LABS: BASO % 0 % (0-3); EOS % 0 % (0-3); HEMATOCRIT 31.4 % (36.0-47.0); HEMOGLOBIN 9.9 g/dL (12.0-15.5); LYMPH # 0.6 x10^3/uL (1.0-4.8); LYMPH % 3 % (24-48); MEAN CORPUSCULAR HEMOGLOBIN 29 pg (25-35); MEAN CORPUSCULAR HGB CONC 32 g/dL (31-37); MEAN CORPUSCULAR VOLUME 93 fL (79-100); MONO % 7 % (0-9); NEUT % 90 % (31-73); PLATELET COUNT 141 x10^3/uL (140-400); RED BLOOD COUNT 3.37 x10^6/uL (3.50-5.40); RED CELL DISTRIBUTION WIDTH 18.3 % (11.5-14.5); WHITE BLOOD COUNT 18.8 x10^3/uL (4.0-11.0)
[2016-09-10 07:00] VITALS: BP 138/70
--- NOTE | 2016-09-10 08:16 | PDOC ---
SURGICAL PROGRESS NOTE Subjective Patient resting comfortably. Denies pain. Vital Signs Vital Signs Date Time Temp Pulse Resp B/P Pulse Ox O2 Delivery O2 Flow Rate FiO2 09/10/16 07:00 98.1 111 26 138/70 92 Nasal Cannula 2.0 98.1 I&O Intake and Output 09/10/16 07:00 Intake Total 3888 ml Output Total 1450 ml Balance 2438 ml Intake Oral 0 ml IV Total 3888 ml Output Urine Total 1450 ml # Voids 2 # Bowel Movements 2 PATIENT HAS A OLIVIER: No General: Alert, Cooperative, No acute distress Abdomen: Normal bowel sounds, Soft, No tenderness Labs Laboratory Tests Test 09/08/16 08:30 09/08/16 14:00 09/08/16 16:30 09/09/16 05:10 Lactic Acid Level 0.8mmol/L (0.4-2.0) Procalcitonin 1.72ng/mL (0.00-0.10) O2 Saturation 93% (92-99) 93% (92-99) Arterial Blood pH 7.28 (7.35-7.45) 7.36 (7.35-7.45) Arterial Blood pCO2 at Patient Temp 54mmHg (35-46) 55mmHg (35-46) Arterial Blood pO2 at Patient Temp 67mmHg (65-108) 65mmHg (65-108) Arterial Blood HCO3 25mmol/L (21-28) 30mmol/L (21-28) Arterial Blood Base Excess -2mmol/L (-3-3) 3mmol/L (-3-3) FiO2 35 35 White Blood Count 20.2x10^3/uL (4.0-11.0) Red Blood Count 3.34x10^6/uL (3.50-5.40) Hemoglobin 9.7g/dL (12.0-15.5) Hematocrit 29.5% (36.0-47.0) Mean Corpuscular Volume 88fL (79-100) Mean Corpuscular Hemoglobin 29pg (25-35) Mean Corpuscular Hemoglobin Concent 33g/dL (31-37) Red Cell Distribution Width 17.3% (11.5-14.5) Platelet Count 121x10^3/uL (140-400) Neutrophils (%) (Auto) 91% (31-73) Lymphocytes (%) (Auto) 4% (24-48) Monocytes (%) (Auto) 5% (0-9) Eosinophils (%) (Auto) 0% (0-3) Basophils (%) (Auto) 0% (0-3) Neutrophils # (Auto) 18.4x10^3uL (1.8-7.7) Lymphocytes # (Auto) 0.7x10^3/uL (1.0-4.8) Monocytes # (Auto) 1.0x10^3/uL (0.0-1.1) Eosinophils # (Auto) 0.0x10^3/uL (0.0-0.7) Basophils # (Auto) 0.0x10^3/uL (0.0-0.2) Segmented Neutrophils % 95% (35-66) Lymphocytes % 2% (24-48) Monocytes % 3% (0-10) Platelet Estimate Decreased (ADEQUATE) Anisocytosis Slight Pappenheimer Bodies Present [place] Bodies Present Sodium Level 148mmol/L (136-145) Potassium Level 3.3mmol/L (3.5-5.1) Chloride Level 113mmol/L (98-107) Carbon Dioxide Level 28mmol/L (21-32) Anion Gap 7 (6-14) Blood Urea Nitrogen 29mg/dL (7-20) Creatinine 0.8mg/dL (0.6-1.0) Estimated GFR (Cockcroft-Gault) 71.3 BUN/Creatinine Ratio 36 (6-20) Glucose Level 134mg/dL (70-99) Calcium Level 8.1mg/dL (8.5-10.1) Phosphorus Level 2.4mg/dL (2.6-4.7) Magnesium Level 1.8mg/dL (1.8-2.4) Total Bilirubin 0.6mg/dL (0.2-1.0) Aspartate Amino Transf (AST/SGOT) 32U/L (15-37) Alanine Aminotransferase (ALT/SGPT) 75U/L (14-59) Alkaline Phosphatase 107U/L (46-116) Total Protein 5.4g/dL (6.4-8.2) Albumin 2.8g/dL (3.4-5.0) Albumin/Globulin Ratio 1.1 (1.0-1.7) Test 09/09/16 07:20 09/09/16 12:00 09/10/16 06:10 O2 Saturation 97% (92-99) Arterial Blood pH 7.36 (7.35-7.45) Arterial Blood pCO2 at Patient Temp 50mmHg (35-46) Arterial Blood pO2 at Patient Temp 98mmHg (65-108) Arterial Blood HCO3 28mmol/L (21-28) Arterial Blood Base Excess 2mmol/L (-3-3) FiO2 35 Potassium Level 3.9mmol/L (3.5-5.1) 4.1mmol/L (3.5-5.1) White Blood Count 18.8x10^3/uL (4.0-11.0) Red Blood Count 3.37x10^6/uL (3.50-5.40) Hemoglobin 9.9g/dL (12.0-15.5) Hematocrit 31.4% (36.0-47.0) Mean Corpuscular Volume 93fL (79-100) Mean Corpuscular Hemoglobin 29pg (25-35) Mean Corpuscular Hemoglobin Concent 32g/dL (31-37) Red Cell Distribution Width 18.3% (11.5-14.5) Platelet Count 141x10^3/uL (140-400) Neutrophils (%) (Auto) 90% (31-73) Lymphocytes (%) (Auto) 3% (24-48) Monocytes (%) (Auto) 7% (0-9) Eosinophils (%) (Auto) 0% (0-3) Basophils (%) (Auto) 0% (0-3) Neutrophils # (Auto) 16.9x10^3uL (1.8-7.7) Lymphocytes # (Auto) 0.6x10^3/uL (1.0-4.8) Monocytes # (Auto) 1.2x10^3/uL (0.0-1.1) Eosinophils # (Auto) 0.0x10^3/uL (0.0-0.7) Basophils # (Auto) 0.0x10^3/uL (0.0-0.2) Sodium Level 151mmol/L (136-145) Chloride Level 116mmol/L (98-107) Carbon Dioxide Level 34mmol/L (21-32) Anion Gap 1 (6-14) Blood Urea Nitrogen 34mg/dL (7-20) Creatinine 0.8mg/dL (0.6-1.0) Estimated GFR (Cockcroft-Gault) 71.3 Glucose Level 98mg/dL (70-99) Calcium Level 8.3mg/dL (8.5-10.1) Phosphorus Level 4.8mg/dL (2.6-4.7) Magnesium Level 2.2mg/dL (1.8-2.4) Albumin 2.6g/dL (3.4-5.0) Laboratory Tests Test 09/09/16 12:00 09/10/16 06:10 Potassium Level 3.9mmol/L (3.5-5.1) 4.1mmol/L (3.5-5.1) White Blood Count 18.8x10^3/uL (4.0-11.0) Red Blood Count 3.37x10^6/uL (3.50-5.40) Hemoglobin 9.9g/dL (12.0-15.5) Hematocrit 31.4% (36.0-47.0) Mean Corpuscular Volume 93fL (79-100) Mean Corpuscular Hemoglobin 29pg (25-35) Mean Corpuscular Hemoglobin Concent 32g/dL (31-37) Red Cell Distribution Width 18.3% (11.5-14.5) Platelet Count 141x10^3/uL (140-400) Neutrophils (%) (Auto) 90% (31-73) Lymphocytes (%) (Auto) 3% (24-48) Monocytes (%) (Auto) 7% (0-9) Eosinophils (%) (Auto) 0% (0-3) Basophils (%) (Auto) 0% (0-3) Neutrophils # (Auto) 16.9x10^3uL (1.8-7.7) Lymphocytes # (Auto) 0.6x10^3/uL (1.0-4.8) Monocytes # (Auto) 1.2x10^3/uL (0.0-1.1) Eosinophils # (Auto) 0.0x10^3/uL (0.0-0.7) Basophils # (Auto) 0.0x10^3/uL (0.0-0.2) Sodium Level 151mmol/L (136-145) Chloride Level 116mmol/L (98-107) Carbon Dioxide Level 34mmol/L (21-32) Anion Gap 1 (6-14) Blood Urea Nitrogen 34mg/dL (7-20) Creatinine 0.8mg/dL (0.6-1.0) Estimated GFR (Cockcroft-Gault) 71.3 Glucose Level 98mg/dL (70-99) Calcium Level 8.3mg/dL (8.5-10.1) Phosphorus Level 4.8mg/dL (2.6-4.7) Magnesium Level 2.2mg/dL (1.8-2.4) Albumin 2.6g/dL (3.4-5.0) Problem List Problems Medical Problems: (1) Anemia Status: Acute (2) Hypotension Status: Acute Assessment/Plan Upper GI bleed s/p IR intervention Hgb stable 9.9 Appears bleed ing has stopped. Adv diet per GI No surgical indications, will sign off. Reconsult if needed in the future. Problems: ELI DRUMMOND MD Sep 10, 2016 08:16
[2016-09-10] MEDS: PANTOPRAZOLE IV PUSH 40 MG VIAL. IVP SCH (08:38)
[2016-09-10] MEDS: VANCOMYCIN 1 GM in IV DEXTROSE 5% 250 ML IV SCH (09:00)
--- NOTE | 2016-09-10 09:44 | PDOC ---
Objective: Objective: Per RN - unresponsive even to sternal rub this morning. Plans to call family re : orders to restart BiPAP. Reviewed palliative care note. Dr. Ochoa has been by today. Vital Signs: Vital Signs Date Time Temp Pulse Resp B/P Pulse Ox O2 Delivery O2 Flow Rate FiO2 09/10/16 07:00 98.1 111 26 138/70 92 Nasal Cannula 2.0 98.1 Labs: Laboratory Tests Test 09/09/16 12:00 09/10/16 06:10 09/10/16 08:45 Potassium Level 3.9mmol/L 4.1mmol/L White Blood Count 18.8x10^3/uL Red Blood Count 3.37x10^6/uL Hemoglobin 9.9g/dL Hematocrit 31.4% Mean Corpuscular Volume 93fL Mean Corpuscular Hemoglobin 29pg Mean Corpuscular Hemoglobin Concent 32g/dL Red Cell Distribution Width 18.3% Platelet Count 141x10^3/uL Neutrophils (%) (Auto) 90% Lymphocytes (%) (Auto) 3% Monocytes (%) (Auto) 7% Eosinophils (%) (Auto) 0% Basophils (%) (Auto) 0% Neutrophils # (Auto) 16.9x10^3uL Lymphocytes # (Auto) 0.6x10^3/uL Monocytes # (Auto) 1.2x10^3/uL Eosinophils # (Auto) 0.0x10^3/uL Basophils # (Auto) 0.0x10^3/uL Sodium Level 151mmol/L Chloride Level 116mmol/L Carbon Dioxide Level 34mmol/L Anion Gap 1 Blood Urea Nitrogen 34mg/dL Creatinine 0.8mg/dL Estimated GFR (Cockcroft-Gault) 71.3 Glucose Level 98mg/dL Calcium Level 8.3mg/dL Phosphorus Level 4.8mg/dL Magnesium Level 2.2mg/dL Albumin 2.6g/dL Vancomycin Level Trough 13.2mcg/mL Vancomycin Last Dose Date 09/09/16 Vancomycin Last Dose Time 0900 PE: LUNGS: tachypneic HEART: tachycardic ABD: BS quiet, soft NEURO/PSYCH: eyes open, does not respond A/P: Duodenal ulcer s/p endotherapy, s/p IR embolization -surgery following, Hgb improved/stable -melena resolved -IV PPI Resp failure, hypernatremia -- Unresponsive. Await family decisions. FELICITAS BEACH Sep 10, 2016 09:44
[2016-09-10] MEDS: VANCOMYCIN PER PHARMACY MC PRN (09:49)
--- NOTE | 2016-09-10 10:04 | PDOC ---
PROGRESS NOTES Subjective Subjective Pt less responsive this am. Moans responses. Denies pain with asked. Objective Objective Pt less responsive. Agonal breathing present. Pt pale in color. VSS. I>O. Vital Signs Date Time Temp Pulse Resp B/P Pulse Ox O2 Delivery O2 Flow Rate FiO2 09/10/16 07:00 98.1 111 26 138/70 92 Nasal Cannula 2.0 98.1 Intake and Output 09/10/16 06:59 Intake Total 3888 ml Output Total 1450 ml Balance 2438 ml Intake Oral 0 ml IV Total 3888 ml Output Urine Total 1450 ml # Voids 2 # Bowel Movements 2 Assessment Assessment Problems Medical Problems: (1) Anemia Status: Acute (2) Hypotension Status: Acute Plan Plan of Care 1. Acute respiratory distress -BiPap to be restarted this am due to agonal breathing -Pulmonary team following GI bleed from large ulcer, bleeding now resolved -s/p cauterization, 09/04 -emergent arteriogram-embolization w/ coiling 09/05 -PRBC x3 -Hgb 9.9 this am, stable -GI and surgery team following: monitoring at this time as pt is a poor surgical candidate based on comorbidities -on PPI 2. Acute Renal Failure with hypernatremia -Creat 1.1 upon admission, 0.8 this am -Na 142 upon admission, 148 this am. Improved -Renal team following 3. Leukocytosis -WBC 18.8K this am -ID team consulting -Original blood cxs negative. Repeat ordered 09/07, negative to date -UA negative -Vanc and Fluconazole 4. Hypotension -Now off of pressors 5. Lactic acidosis likely to GI bleed and hypoperfusion 6. Status post fixation of a left femoral neck fracture and subsequent reinjury below with repeat surgery -Ortho consulting -Minor serous drainage present from incision site. Palliative Care consulting: "Family wants to continue aggressive care up to resuscitation. Family supportive of patient wishes for DNR/DNI." Comment Review of Relevant I have reviewed the following items pako (where applicable) has been applied. Labs Laboratory Tests Test 09/08/16 14:00 09/08/16 16:30 09/09/16 05:10 09/09/16 07:20 O2 Saturation 93% (92-99) 93% (92-99) 97% (92-99) Arterial Blood pH 7.28 (7.35-7.45) 7.36 (7.35-7.45) 7.36 (7.35-7.45) Arterial Blood pCO2 at Patient Temp 54mmHg (35-46) 55mmHg (35-46) 50mmHg (35-46) Arterial Blood pO2 at Patient Temp 67mmHg (65-108) 65mmHg (65-108) 98mmHg (65-108) Arterial Blood HCO3 25mmol/L (21-28) 30mmol/L (21-28) 28mmol/L (21-28) Arterial Blood Base Excess -2mmol/L (-3-3) 3mmol/L (-3-3) 2mmol/L (-3-3) FiO2 35 35 35 White Blood Count 20.2x10^3/uL (4.0-11.0) Red Blood Count 3.34x10^6/uL (3.50-5.40) Hemoglobin 9.7g/dL (12.0-15.5) Hematocrit 29.5% (36.0-47.0) Mean Corpuscular Volume 88fL (79-100) Mean Corpuscular Hemoglobin 29pg (25-35) Mean Corpuscular Hemoglobin Concent 33g/dL (31-37) Red Cell Distribution Width 17.3% (11.5-14.5) Platelet Count 121x10^3/uL (140-400) Neutrophils (%) (Auto) 91% (31-73) Lymphocytes (%) (Auto) 4% (24-48) Monocytes (%) (Auto) 5% (0-9) Eosinophils (%) (Auto) 0% (0-3) Basophils (%) (Auto) 0% (0-3) Neutrophils # (Auto) 18.4x10^3uL (1.8-7.7) Lymphocytes # (Auto) 0.7x10^3/uL (1.0-4.8) Monocytes # (Auto) 1.0x10^3/uL (0.0-1.1) Eosinophils # (Auto) 0.0x10^3/uL (0.0-0.7) Basophils # (Auto) 0.0x10^3/uL (0.0-0.2) Segmented Neutrophils % 95% (35-66) Lymphocytes % 2% (24-48) Monocytes % 3% (0-10) Platelet Estimate Decreased (ADEQUATE) Anisocytosis Slight Pappenheimer Bodies Present Burr-Arrowsmith Bodies Present Sodium Level 148mmol/L (136-145) Potassium Level 3.3mmol/L (3.5-5.1) Chloride Level 113mmol/L (98-107) Carbon Dioxide Level 28mmol/L (21-32) Anion Gap 7 (6-14) Blood Urea Nitrogen 29mg/dL (7-20) Creatinine 0.8mg/dL (0.6-1.0) Estimated GFR (Cockcroft-Gault) 71.3 BUN/Creatinine Ratio 36 (6-20) Glucose Level 134mg/dL (70-99) Calcium Level 8.1mg/dL (8.5-10.1) Phosphorus Level 2.4mg/dL (2.6-4.7) Magnesium Level 1.8mg/dL (1.8-2.4) Total Bilirubin 0.6mg/dL (0.2-1.0) Aspartate Amino Transf (AST/SGOT) 32U/L (15-37) Alanine Aminotransferase (ALT/SGPT) 75U/L (14-59) Alkaline Phosphatase 107U/L (46-116) Total Protein 5.4g/dL (6.4-8.2) Albumin 2.8g/dL (3.4-5.0) Albumin/Globulin Ratio 1.1 (1.0-1.7) Test 09/09/16 12:00 09/10/16 06:10 09/10/16 08:45 Potassium Level 3.9mmol/L (3.5-5.1) 4.1mmol/L (3.5-5.1) White Blood Count 18.8x10^3/uL (4.0-11.0) Red Blood Count 3.37x10^6/uL (3.50-5.40) Hemoglobin 9.9g/dL (12.0-15.5) Hematocrit 31.4% (36.0-47.0) Mean Corpuscular Volume 93fL (79-100) Mean Corpuscular Hemoglobin 29pg (25-35) Mean Corpuscular Hemoglobin Concent 32g/dL (31-37) Red Cell Distribution Width 18.3% (11.5-14.5) Platelet Count 141x10^3/uL (140-400) Neutrophils (%) (Auto) 90% (31-73) Lymphocytes (%) (Auto) 3% (24-48) Monocytes (%) (Auto) 7% (0-9) Eosinophils (%) (Auto) 0% (0-3) Basophils (%) (Auto) 0% (0-3) Neutrophils # (Auto) 16.9x10^3uL (1.8-7.7) Lymphocytes # (Auto) 0.6x10^3/uL (1.0-4.8) Monocytes # (Auto) 1.2x10^3/uL (0.0-1.1) Eosinophils # (Auto) 0.0x10^3/uL (0.0-0.7) Basophils # (Auto) 0.0x10^3/uL (0.0-0.2) Sodium Level 151mmol/L (136-145) Chloride Level 116mmol/L (98-107) Carbon Dioxide Level 34mmol/L (21-32) Anion Gap 1 (6-14) Blood Urea Nitrogen 34mg/dL (7-20) Creatinine 0.8mg/dL (0.6-1.0) Estimated GFR (Cockcroft-Gault) 71.3 Glucose Level 98mg/dL (70-99) Calcium Level 8.3mg/dL (8.5-10.1) Phosphorus Level 4.8mg/dL (2.6-4.7) Magnesium Level 2.2mg/dL (1.8-2.4) Albumin 2.6g/dL (3.4-5.0) Vancomycin Level Trough 13.2mcg/mL (10.0-20.0) Vancomycin Last Dose Date 09/09/16 Vancomycin Last Dose Time 0900 Laboratory Tests Test 09/09/16 12:00 09/10/16 06:10 09/10/16 08:45 Potassium Level 3.9mmol/L (3.5-5.1) 4.1mmol/L (3.5-5.1) White Blood Count 18.8x10^3/uL (4.0-11.0) Red Blood Count 3.37x10^6/uL (3.50-5.40) Hemoglobin 9.9g/dL (12.0-15.5) Hematocrit 31.4% (36.0-47.0) Mean Corpuscular Volume 93fL (79-100) Mean Corpuscular Hemoglobin 29pg (25-35) Mean Corpuscular Hemoglobin Concent 32g/dL (31-37) Red Cell Distribution Width 18.3% (11.5-14.5) Platelet Count 141x10^3/uL (140-400) Neutrophils (%) (Auto) 90% (31-73) Lymphocytes (%) (Auto) 3% (24-48) Monocytes (%) (Auto) 7% (0-9) Eosinophils (%) (Auto) 0% (0-3) Basophils (%) (Auto) 0% (0-3) Neutrophils # (Auto) 16.9x10^3uL (1.8-7.7) Lymphocytes # (Auto) 0.6x10^3/uL (1.0-4.8) Monocytes # (Auto) 1.2x10^3/uL (0.0-1.1) Eosinophils # (Auto) 0.0x10^3/uL (0.0-0.7) Basophils # (Auto) 0.0x10^3/uL (0.0-0.2) Sodium Level 151mmol/L (136-145) Chloride Level 116mmol/L (98-107) Carbon Dioxide Level 34mmol/L (21-32) Anion Gap 1 (6-14) Blood Urea Nitrogen 34mg/dL (7-20) Creatinine 0.8mg/dL (0.6-1.0) Estimated GFR (Cockcroft-Gault) 71.3 Glucose Level 98mg/dL (70-99) Calcium Level 8.3mg/dL (8.5-10.1) Phosphorus Level 4.8mg/dL (2.6-4.7) Magnesium Level 2.2mg/dL (1.8-2.4) Albumin 2.6g/dL (3.4-5.0) Vancomycin Level Trough 13.2mcg/mL (10.0-20.0) Vancomycin Last Dose Date 09/09/16 Vancomycin Last Dose Time 0900 Microbiology 4/4/17 Blood Culture - Preliminary, Resulted NO GROWTH AFTER 2 DAYS Medications Current Medications Sodium Chloride 1,000 ml @ 0 mls/hr 1X ONCE IV Last administered on 14:00; Start 09/03/16 at 14:00; Stop 09/03/16 at 14:01; Status DC Sodium Chloride 1,000 ml @ 0 mls/hr 1X ONCE IV Last administered on 16:13; Start 09/03/16 at 15:45; Stop 09/03/16 at 15:46; Status DC Vancomycin HCl 1 gm/Sodium Chloride 250 ml @ 250 mls/hr 1X ONCE IV Last administered on 09/03/16 20:08; Start 09/03/16 at 20:00; Stop 09/03/16 at 20:59 ; Status DC Piperacillin Sod/ Tazobactam Sod 3.375 gm/Sodium Chloride 50 ml @ 100 mls/hr Q6HRS IV Last administered on 09/08/16 05:26; Start 09/03/16 at 20:00; Stop 09/08/16 at 08:31; Status DC Sodium Chloride 1,000 ml @ 1,000 mls/hr 1X ONCE IV Last administered on 19:00; Start 09/03/16 at 19:00; Stop 09/03/16 at 19:59; Status DC Sodium Chloride (Iv Sodium Chloride 0.9% 1000ml Bag) 1,000 ml @ 100 mls/hr Q10H IV Last administered on 09/05/16 02:13; Start 09/03/16 at 20:00; Stop 09/05 at 08:39; Status DC Pantoprazole Sodium 40 mg 40 mg DAILYAC IVP ; Start 09/04/16 at 07:30; Status Cancel Norepinephrine Bitartrate/Sodium Chloride (Levophed Vial/ Iv Sodium Chloride 0.9 % 250ml) 258 ml @ 0 mls/hr CONT PRN IV SEE I/O RECORD Last administered on 01:24; Start 09/04/16 at 03:30; Stop 09/06/16 at 12:24; Status DC Pantoprazole Sodium (Protonix Vial) 40 mg 1X ONCE IVP Last administered on 3/ 31/17at 04:06; Start 09/04/16 at 04:00; Stop 09/04/16 at 04:01; Status DC Lidocaine/Sodium Bicarbonate 20 ml 20 ml STK-MED ONCE IJ ; Start 09/04/16 at 08: 40; Stop 09/04/16 at 08:41; Status DC Pantoprazole Sodium/Sodium Chloride (Protonix Iv/Iv Sodium Chloride 0.9% 100ml) 100 ml @ 10 mls/hr Q10H IV Last administered on 09/09/16t 08:13; Start at 08:45; Stop 09/09/16 at 12:27; Status DC Lidocaine/Sodium Bicarbonate (Buffered Lidocaine 1%) 3 ml 1X ONCE IJ ; Start at 08:45; Stop 09/04/16 at 08:46; Status DC Heparin Sodium/ Sodium Chloride 60 unit 60 unit 1X ONCE IV ; Start 09/04/16 at 08:45; Stop 09/04/16 at 08:46; Status DC Pantoprazole Sodium 80 mg/ Sodium Chloride 100 ml @ 10 mls/hr Q10H IV ; Start 09/04/16 at 08:45; Status UNV Propofol (Diprivan) 40 ml @ As Directed STK-MED ONCE IV ; Start 09/04/16 at 10: 58; Stop 09/04/16 at 10:59; Status DC Lidocaine HCl (Lidocaine Pf 2% Vial) 5 ml STK-MED ONCE .ROUTE ; Start 09/04/16 at 10:58; Stop 09/04/16 at 10:59; Status DC Epinephrine HCl (Epinephrine Syringe) 1 mg STK-MED ONCE .ROUTE ; Start 09/04/16 at 12:02; Stop 09/04/16 at 12:03; Status DC Epinephrine HCl (Epinephrine Syringe) 1 mg STK-MED ONCE .ROUTE ; Start 09/04/16 at 12:05; Stop 09/04/16 at 12:06; Status DC Lidocaine/Sodium Bicarbonate 20 ml 20 ml STK-MED ONCE IJ ; Start 09/04/16 at 13: 12; Stop 09/04/16 at 13:13; Status DC Heparin Sodium/ Sodium Chloride 500 ml @ As Directed STK-MED ONCE .ROUTE ; Start 09/04/16 at 13:12; Stop 09/04/16 at 13:13; Status DC Epinephrine HCl (Adrenalin) 1 mg STK-MED ONCE SQ Last administered on 12:08; Start 09/04/16 at 12:08; Stop 09/04/16 at 14:25; Status DC Epinephrine HCl 1 mg 1 mg STK-MED ONCE SQ Last administered on 09/04/16 12:11 ; Start 09/04/16 at 12:11; Stop 09/04/16 at 14:25; Status DC Sodium Bicarbonate/ Sodium Chloride (Iv Sodium Chloride 0.45%) 1,050 ml @ 125 mls/hr Q8H24M IV Last administered on 09/05/16 09:06; Start 09/05/16 at 09:30; Stop 09/05/16 at 14:28; Status DC Morphine Sulfate 1 mg PRN Q4HRS PRN IV PAIN; Start 09/05/16 at 10:15; Stop at 11:45; Status DC Morphine Sulfate 2 mg PRN Q4HRS PRN IV PAIN Last administered on 09/05/16 16:31 ; Start 09/05/16 at 10:15; Stop 09/08/16 at 11:45; Status DC Desmopressin Acetate (Ddavp) 1 mcg BID SQ Last administered on 09/05/16 20:51; Start 09/05/16 at 15:00; Stop 09/06/16 at 10:13; Status DC Sodium Bicarbonate 50 meq 50 meq Q6HRS IV Last administered on 09/07/16 06:10; Start 09/05/16 at 18:00; Stop 09/07/16 at 08:51; Status DC Albumin Human 100 ml @ 100 mls/hr TID IV Last administered on 09/06/16 23:20; Start 09/05/16 at 15:00; Stop 09/07/16 at 08:51; Status DC Magnesium Sulfate/ Dextrose 50 ml @ 25 mls/hr PRN DAILY PRN IV for Mag < 1.7 on am labs; Start 09/05/16 at 14:30; Stop 09/06/16 at 06:18; Status DC Potassium Chloride 50 ml @ 50 mls/hr PRN Q6HRS PRN IV For K < 3.7; Start at 14:30 Potassium Chloride (KCl Premix 20meq) 50 ml @ 50 mls/hr PRN Q2HR PRN IV total of 40mEq for K < 3.5 Last administered on 09/09/16 07:17; Start 09/05/16 at 14:30 Iohexol (Omnipaque 300 Mg/ml) 50 ml STK-MED ONCE .ROUTE ; Start 09/05/16 at 22:27 ; Stop 09/05/16 at 22:28; Status DC Iohexol (Omnipaque 300 Mg/ml) 100 ml STK-MED ONCE .ROUTE ; Start 09/05/16 at 22: 27; Stop 09/05/16 at 22:28; Status DC Lidocaine/Sodium Bicarbonate 20 ml 20 ml STK-MED ONCE IJ ; Start 09/05/16 at 22: 27; Stop 09/05/16 at 22:28; Status DC Heparin Sodium/ Sodium Chloride 1,000 ml @ As Directed STK-MED ONCE .ROUTE ; Start 09/05/16 at 22:27; Stop 09/05/16 at 22:28; Status DC Heparin Sodium/ Sodium Chloride 1,000 unit 1X ONCE IART Last administered on 23:46; Start 09/05/16 at 23:30; Stop 09/05/16 at 23:31; Status DC Lidocaine/Sodium Bicarbonate (Buffered Lidocaine 1%) 20 ml 1X ONCE IJ Last administered on 09/05/16 23:46; Start 09/05/16 at 23:30; Stop 09/05/16 at 23:31; Status DC Iohexol (Omnipaque 300 Mg/ml) 100 ml 1X ONCE IART Last administered on 01:07; Start 09/05/16 at 23:30; Stop 09/05/16 at 23:31; Status DC Gelatin (Gelfoam Size 12-7mm) 1 each STK-MED ONCE .ROUTE ; Start 09/05/16 at 23: 35; Stop 09/05/16 at 23:36; Status DC Midazolam HCl (Versed) 2 mg STK-MED ONCE .ROUTE ; Start 09/05/16 at 23:51; Stop 09/05/16 at 23:52; Status DC Naloxone HCl (Narcan) 0.4 mg STK-MED ONCE .ROUTE ; Start 09/05/16 at 23:54; Stop 09/05/16 at 23:55; Status DC Iohexol (Omnipaque 300 Mg/ml) 50 ml STK-MED ONCE .ROUTE ; Start 09/05/16 at 23:58 ; Stop 09/05/16 at 23:59; Status DC Iohexol (Omnipaque 300 Mg/ml) 50 ml STK-MED ONCE .ROUTE ; Start 09/06/16 at 00:17 ; Stop 09/06/16 at 00:18; Status DC Midazolam HCl (Versed) 2 mg 1X ONCE IV Last administered on 09/06/16 01:08; Start 09/06/16 at 00:30; Stop 09/06/16 at 00:31; Status DC Iohexol (Omnipaque 300 Mg/ml) 150 ml 1X ONCE IART Last administered on 01:08; Start 09/06/16 at 00:30; Stop 09/06/16 at 00:31; Status DC Fentanyl Citrate (Fentanyl 2ml Vial) 100 mcg STK-MED ONCE .ROUTE ; Start at 00:23; Stop 09/06/16 at 00:24; Status DC Norepinephrine Bitartrate 4 mg 4 mg STK-MED ONCE IV ; Start 09/06/16 at 00:43; Stop 09/06/16 at 00:44; Status DC Dopamine HCl/ Dextrose 250 ml @ As Directed STK-MED ONCE IV ; Start 09/06/16 at 00:53; Stop 09/06/16 at 00:55; Status DC Diphenhydramine HCl (Benadryl) 50 mg STK-MED ONCE .ROUTE ; Start 09/06/16 at 01: 02; Stop 09/06/16 at 01:03; Status DC Fentanyl Citrate (Fentanyl 2ml Vial) 25 mcg 1X ONCE IV Last administered on 01:22; Start 09/06/16 at 01:30; Stop 09/06/16 at 01:31; Status DC Diphenhydramine HCl 25 mg 25 mg 1X ONCE IVP Last administered on 09/06/16 01: 25; Start 09/06/16 at 01:30; Stop 09/06/16 at 01:31; Status DC Norepinephrine Bitartrate 8 mg/ Sodium Chloride 258 ml @ 0 mls/hr 1X ONCE IV Last administered on 09/06/16 01:26; Start 09/06/16 at 01:30; Stop 09/06/16 at 01: 31; Status DC Dopamine HCl/ Dextrose 250 ml @ 9.952 mls/ hr 1X ONCE IV Last administered on 09/06/16 01:22; Start 09/06/16 at 01:15; Stop 09/07/16 at 02:22; Status DC Lidocaine HCl 100 mg 100 mg STK-MED ONCE .ROUTE ; Start 09/06/16 at 03:32; Stop 09/06/16 at 03:33; Status DC Phytonadione 10 mg/Sodium Chloride 51 ml @ 102 mls/hr 1X ONCE IV ; Start at 04:30; Stop 09/06/16 at 08:49; Status DC Magnesium Sulfate/ Dextrose 50 ml @ 25 mls/hr PRN DAILY PRN IV for Mag < 1.7 on am labs; Start 09/06/16 at 06:30 Sodium Chloride 500 ml @ 500 mls/hr PRN QID PRN IV UO< 30cc/hr over previous 6hrs; Start 09/06/16 at 06:30; Stop 09/09/16 at 10:50; Status DC Phenylephrine HCl/ Sodium Chloride (Miky-Synephrine Inj/Iv Sodium Chloride 0.9% 250ml) 252 ml @ 0 mls/hr CONT PRN IV SEE I/O RECORD; Start 09/06/16 at 08:30 Phytonadione (Vitamin K) 10 mg 1X ONCE SQ Last administered on 09/06/16 09:43 ; Start 09/06/16 at 09:30; Stop 09/06/16 at 09:31; Status DC Pantoprazole Sodium 40 mg 40 mg 1X ONCE IVP Last administered on 09/06/16 09: 44; Start 09/06/16 at 09:30; Stop 09/06/16 at 09:31; Status DC Vasopressin 40 unit/Dextrose 102 ml @ 6 mls/hr CONT PRN IV SEE I/O RECORD Last administered on 09/07/16 06:00; Start 09/06/16 at 10:00; Stop 09/09/16 at 10:50; Status DC Norepinephrine Bitartrate 8 mg/ Dextrose 258 ml @ 0 mls/hr CONT PRN IV . Last administered on 09/06/16 16:32; Start 09/06/16 at 12:30 Potassium Chloride 50 ml @ 50 mls/hr Q2H IV Last administered on 09/06/16 17:20 ; Start 09/06/16 at 15:00; Stop 09/06/16 at 17:59; Status DC Dextrose 1,000 ml @ 100 mls/hr Q10H IV Last administered on 09/09/16 07:17; Start 09/06/16 at 20:00; Stop 09/09/16 at 10:50; Status DC Phenylephrine HCl 1 mg 1 mg STK-MED ONCE IV ; Start 09/05/16 at 12:00; Stop at 08:22; Status DC Potassium Chloride 50 ml @ 50 mls/hr Q2H IV Last administered on 09/07/16 10:49 ; Start 09/07/16 at 10:00; Stop 09/07/16 at 12:59; Status DC Fluconazole/ Sodium Chloride (Diflucan 200mg/ 100ml Premix) 100 ml @ 100 mls/ hr Q24H IV Last administered on 09/09/16 08:52; Start 09/08/16 at 09:00 Vancomycin HCl 1 each 1 each PRN DAILY PRN MC SEE COMMENTS Last administered on 09/09/16 09:21; Start 09/08/16 at 08:00 Vancomycin HCl 1.5 gm/Sodium Chloride 500 ml @ 250 mls/hr 1X ONCE IV ; Start 09/08/16 at 09:00; Stop 09/08/16 at 09:00; Status DC Cefepime HCl 1 gm/ Sodium Chloride 50 ml @ 100 mls/hr Q8HRS IV ; Start 09/08/16 at 14:00; Stop 09/08/16 at 14:00; Status DC Vancomycin HCl 1.5 gm/Dextrose 500 ml @ 250 mls/hr 1X ONCE IV Last administered on 09/08/16 09:29; Start 09/08/16 at 09:00; Stop 09/08/16 at 10:59; Status DC Cefepime HCl 1 gm/ Dextrose 100 ml @ 200 mls/hr Q8HRS IV Last administered on 09/10/16 05:59; Start 09/08/16 at 14:00 Vancomycin HCl/ Dextrose 250 ml @ 250 mls/hr Q24H IV Last administered on 09:52; Start 09/09/16 at 09:00; Stop 09/10/16 at 09:46; Status DC Vancomycin HCl 1 each 1X ONCE MC Last administered on 09/10/16 08:30; Start at 08:30; Stop 09/10/16 at 08:31; Status DC Sodium Bicarbonate 100 meq 100 meq 1X ONCE IV Last administered on 09/08/16 14 :37; Start 09/08/16 at 14:45; Stop 09/09/16 at 10:50; Status DC Amino Acids/ Electrolytes/ Dextrose (Clinimix E 4.25%-5% Solution) 1,000 ml @ 80 mls/hr [id number] IV Last administered on 09/10/16 05:59; Start 09/08/16 at 16: 00 Hydralazine HCl 10 mg 10 mg PRN Q6HRS PRN IVP ELEVATED BP, SEE COMMENTS; Start 09/09/16 at 10:45 Potassium Phosphate/Sodium Chloride (Potassium Phosphate/Iv Sodium Chloride 0.9 % 250ml) 254.5333 ml @ 127.... Q2H IV ; Start 09/09/16 at 11:00; Stop 09/09/16 at 13:20; Status DC Pantoprazole Sodium 40 mg 40 mg DAILYAC IVP Last administered on 09/10/16 08:38 ; Start 09/10/16 at 07:30 Sodium Phosphate 20 mmol/Dextrose 256.6667 ml @ 64.167 m... 1X ONCE IV Last administered on 09/09/16 15:24; Start 09/09/16 at 14:00; Stop 09/09/16 at 17:59; Status DC Vancomycin HCl/ Sodium Chloride (Iv Sodium Chloride 0.9% 250ml) 250 ml @ 167 mls/hr Q24H IV ; Start 09/10/16 at 10:00 Active Scripts Active Hydrocodone-Apap 5-325 (Hydrocodone Bit/Acetaminophen) 1 Each Tablet 2 Tab PO PRN Q4HRS PRN Reported Duoneb 0.5-3(2.5) Mg/3 Ml (Albuterol/Ipratropium) 3 Ml Ampul.neb 3 Ml NEB QID PRN Xanax (Alprazolam) 0.5 Mg Tablet 1 Tab PO Q8HRS PRN Senna-Docusate Sodium Tablet (Sennosides/Docusate Sodium) 1 Each Tablet 1 Each PO DAILY Coumadin (Warfarin Sodium) 2.5 Mg Tablet 1 Tab PO DAILY managed by Dr. Evans Polyethylene Glycol 3350 255 Gm Powder 17 Gm PO DAILY PRN Proair Hfa (Albuterol Sulfate) 8.5 Gm Hfa.aer.ad Valsartan-Hctz 160-12.5 Mg Tab (Valsartan/Hydrochlorothiazide) 1 Each Tablet 1 Each PO DAILY Combivent Respimat Inhal (Ipratropium/Albuterol Sulfate) 4 Gm Aer.w.adap 2 Inh IH QID Albuterol Sulfate Hfa Inhaler (Albuterol Sulfate) 8.5 Gm Hfa.aer.ad 8.5 Gm IH PRN Vitals/I & O Vital Sign - Last 24 Hours 09/09/16 09/09/16 09/09/16 09/09/16 10:05 10:58 12:18 12:18 Pulse 96 115 Resp 29 B/P 147/95 171/97 Pulse Ox 100 100 O2 Delivery BiPAP/CPAP Nasal Cannula Nasal Cannula O2 Flow Rate 3.0 3.0 1.0 09/09/16 09/09/16 09/09/16 09/09/16 12:20 13:18 14:30 15:21 Pulse 114 109 90 97 Resp 26 24 24 24 B/P 142/78 141/70 137/68 103/59 Pulse Ox 92 100 100 100 O2 Delivery Nasal Cannula Nasal Cannula Nasal Cannula Nasal Cannula O2 Flow Rate 1.0 2.0 2.0 2.0 09/09/16 09/09/16 09/09/16 09/09/16 15:54 18:00 19:20 20:00 Temp 98.2 98.3 98.2 98.3 Pulse 103 106 Resp 18 B/P 128/74 127/66 Pulse Ox 97 98 O2 Delivery Nasal Cannula Room Air Nasal Cannula O2 Flow Rate 2.0 2.0 2.0 09/09/16 09/10/16 09/10/16 09/10/16 23:15 00:17 03:00 07:00 Temp 98.5 98.3 98.1 98.5 98.3 98.1 Pulse 95 107 111 Resp 18 26 B/P 123/73 120/69 138/70 Pulse Ox 95 91 92 O2 Delivery Nasal Cannula Nasal Cannula Nasal Cannula Nasal Cannula O2 Flow Rate 2.0 2.0 2.0 Intake and Output 09/09/16 09/09/16 09/10/16 14:59 22:59 06:59 Intake Total 350 ml 2478 ml 1060 ml Output Total 253 ml 747 ml 450 ml Balance 97 ml 1731 ml 610 ml JAMIN EVANS MD Sep 10, 2016 10:04
[2016-09-10] MEDS: FLUCONAZOLE 200MG/100ML PREMIX 100 ML IV SCH (10:27)
--- NOTE | 2016-09-10 10:44 | PDOC ---
Infectious Disease Note Subjective Subjective On BiPAP Not responsive ROS ROS unobtainable Vital Sign Vital Signs Vital Signs Date Time Temp Pulse Resp B/P Pulse Ox O2 Delivery O2 Flow Rate FiO2 09/10/16 10:32 94 BiPAP/CPAP 09/10/16 07:00 98.1 111 26 138/70 2.0 98.1 Physical Exam PHYSICAL EXAM GENERAL: On BiPAP - not responsive NECK: Supple LUNGS: Clear HEART: S1S2, no gallop, no murmur ABD: BS present, mild firm, non tender to light palpation Verma EXT: UE edema. Left lateral hip incision well-approx. rosy, Some serous sanguinous drainage. No redness PESTICIDE USE MEDICAL COORDINATOR: Sleepy, SKIN: No rash. BLE, warm IV Right neck clean. Labs Lab Laboratory Tests Test 09/09/16 12:00 09/10/16 06:10 09/10/16 08:45 Potassium Level 3.9mmol/L (3.5-5.1) 4.1mmol/L (3.5-5.1) White Blood Count 18.8x10^3/uL (4.0-11.0) Red Blood Count 3.37x10^6/uL (3.50-5.40) Hemoglobin 9.9g/dL (12.0-15.5) Hematocrit 31.4% (36.0-47.0) Mean Corpuscular Volume 93fL (79-100) Mean Corpuscular Hemoglobin 29pg (25-35) Mean Corpuscular Hemoglobin Concent 32g/dL (31-37) Red Cell Distribution Width 18.3% (11.5-14.5) Platelet Count 141x10^3/uL (140-400) Neutrophils (%) (Auto) 90% (31-73) Lymphocytes (%) (Auto) 3% (24-48) Monocytes (%) (Auto) 7% (0-9) Eosinophils (%) (Auto) 0% (0-3) Basophils (%) (Auto) 0% (0-3) Neutrophils # (Auto) 16.9x10^3uL (1.8-7.7) Lymphocytes # (Auto) 0.6x10^3/uL (1.0-4.8) Monocytes # (Auto) 1.2x10^3/uL (0.0-1.1) Eosinophils # (Auto) 0.0x10^3/uL (0.0-0.7) Basophils # (Auto) 0.0x10^3/uL (0.0-0.2) Sodium Level 151mmol/L (136-145) Chloride Level 116mmol/L (98-107) Carbon Dioxide Level 34mmol/L (21-32) Anion Gap 1 (6-14) Blood Urea Nitrogen 34mg/dL (7-20) Creatinine 0.8mg/dL (0.6-1.0) Estimated GFR (Cockcroft-Gault) 71.3 Glucose Level 98mg/dL (70-99) Calcium Level 8.3mg/dL (8.5-10.1) Phosphorus Level 4.8mg/dL (2.6-4.7) Magnesium Level 2.2mg/dL (1.8-2.4) Albumin 2.6g/dL (3.4-5.0) Vancomycin Level Trough 13.2mcg/mL (10.0-20.0) Vancomycin Last Dose Date 09/09/16 Vancomycin Last Dose Time 0900 Objective Assessment Fever - better Leukocytosis - better Encephalopathy Hypernatremia - better GI bleed/Erosive gastritis & duodenal ulcers. s/p cauterization, 09/04 s/p PRBCs and emergent arteriogram-embolization w/ coiling 09/05 Anemia. s/p PRBCs times 3 Lactic acidosis likely sec to GI bleed and hypoperfusion, infection possible, less likely Minor drainage at Left hip surgery site Respiratory insufficiency on BiPAP Plan Plan of Care F/u Blood cults Cont Vanc/Fluconazole/Cefepime labs in am supportive care Poor overall prognosis JUAN ANTONIO PERRIN MD Sep 10, 2016 10:44
[2016-09-10 11:00] VITALS: BP 112/57
[2016-09-10] MEDS: VANCOMYCIN 1.25 GM in IV NORMAL SALINE 250ML 250 ML IV SCH (11:42)
[2016-09-10 11:50] LABS: HCO3 ABG 28 mmol/L (21-28); PO2 ABG 67 mmHg (65-108); SAT O2 ABG 93 % (92-99)
--- NOTE | 2016-09-10 12:37 | PDOC ---
PULMONARY PROGRESS NOTES Subjective worsening encephalopathy ABG worse Vitals Vital Signs Date Time Temp Pulse Resp B/P Pulse Ox O2 Delivery O2 Flow Rate FiO2 09/10/16 11:26 88 BiPAP/CPAP 09/10/16 11:00 97.9 107 28 112/57 97.9 09/10/16 07:00 2.0 General: Lethargic Lungs: Other (decrease bs) Cardiovascular: S1 Abdomen: Soft, Non-tender Extremities: No Edema Skin: Warm Labs Laboratory Tests Test 09/08/16 14:00 09/08/16 16:30 09/09/16 05:10 09/09/16 07:20 O2 Saturation 93% (92-99) 93% (92-99) 97% (92-99) Arterial Blood pH 7.28 (7.35-7.45) 7.36 (7.35-7.45) 7.36 (7.35-7.45) Arterial Blood pCO2 at Patient Temp 54mmHg (35-46) 55mmHg (35-46) 50mmHg (35-46) Arterial Blood pO2 at Patient Temp 67mmHg (65-108) 65mmHg (65-108) 98mmHg (65-108) Arterial Blood HCO3 25mmol/L (21-28) 30mmol/L (21-28) 28mmol/L (21-28) Arterial Blood Base Excess -2mmol/L (-3-3) 3mmol/L (-3-3) 2mmol/L (-3-3) FiO2 35 35 35 White Blood Count 20.2x10^3/uL (4.0-11.0) Red Blood Count 3.34x10^6/uL (3.50-5.40) Hemoglobin 9.7g/dL (12.0-15.5) Hematocrit 29.5% (36.0-47.0) Mean Corpuscular Volume 88fL (79-100) Mean Corpuscular Hemoglobin 29pg (25-35) Mean Corpuscular Hemoglobin Concent 33g/dL (31-37) Red Cell Distribution Width 17.3% (11.5-14.5) Platelet Count 121x10^3/uL (140-400) Neutrophils (%) (Auto) 91% (31-73) Lymphocytes (%) (Auto) 4% (24-48) Monocytes (%) (Auto) 5% (0-9) Eosinophils (%) (Auto) 0% (0-3) Basophils (%) (Auto) 0% (0-3) Neutrophils # (Auto) 18.4x10^3uL (1.8-7.7) Lymphocytes # (Auto) 0.7x10^3/uL (1.0-4.8) Monocytes # (Auto) 1.0x10^3/uL (0.0-1.1) Eosinophils # (Auto) 0.0x10^3/uL (0.0-0.7) Basophils # (Auto) 0.0x10^3/uL (0.0-0.2) Segmented Neutrophils % 95% (35-66) Lymphocytes % 2% (24-48) Monocytes % 3% (0-10) Platelet Estimate Decreased (ADEQUATE) Anisocytosis Slight Pappenheimer Bodies Present [place] Bodies Present Sodium Level 148mmol/L (136-145) Potassium Level 3.3mmol/L (3.5-5.1) Chloride Level 113mmol/L (98-107) Carbon Dioxide Level 28mmol/L (21-32) Anion Gap 7 (6-14) Blood Urea Nitrogen 29mg/dL (7-20) Creatinine 0.8mg/dL (0.6-1.0) Estimated GFR (Cockcroft-Gault) 71.3 BUN/Creatinine Ratio 36 (6-20) Glucose Level 134mg/dL (70-99) Calcium Level 8.1mg/dL (8.5-10.1) Phosphorus Level 2.4mg/dL (2.6-4.7) Magnesium Level 1.8mg/dL (1.8-2.4) Total Bilirubin 0.6mg/dL (0.2-1.0) Aspartate Amino Transf (AST/SGOT) 32U/L (15-37) Alanine Aminotransferase (ALT/SGPT) 75U/L (14-59) Alkaline Phosphatase 107U/L (46-116) Total Protein 5.4g/dL (6.4-8.2) Albumin 2.8g/dL (3.4-5.0) Albumin/Globulin Ratio 1.1 (1.0-1.7) Test 09/09/16 12:00 09/10/16 06:10 09/10/16 08:45 09/10/16 11:55 Potassium Level 3.9mmol/L (3.5-5.1) 4.1mmol/L (3.5-5.1) 4.3mmol/L (3.5-5.1) White Blood Count 18.8x10^3/uL (4.0-11.0) Red Blood Count 3.37x10^6/uL (3.50-5.40) Hemoglobin 9.9g/dL (12.0-15.5) Hematocrit 31.4% (36.0-47.0) Mean Corpuscular Volume 93fL (79-100) Mean Corpuscular Hemoglobin 29pg (25-35) Mean Corpuscular Hemoglobin Concent 32g/dL (31-37) Red Cell Distribution Width 18.3% (11.5-14.5) Platelet Count 141x10^3/uL (140-400) Neutrophils (%) (Auto) 90% (31-73) Lymphocytes (%) (Auto) 3% (24-48) Monocytes (%) (Auto) 7% (0-9) Eosinophils (%) (Auto) 0% (0-3) Basophils (%) (Auto) 0% (0-3) Neutrophils # (Auto) 16.9x10^3uL (1.8-7.7) Lymphocytes # (Auto) 0.6x10^3/uL (1.0-4.8) Monocytes # (Auto) 1.2x10^3/uL (0.0-1.1) Eosinophils # (Auto) 0.0x10^3/uL (0.0-0.7) Basophils # (Auto) 0.0x10^3/uL (0.0-0.2) Sodium Level 151mmol/L (136-145) Chloride Level 116mmol/L (98-107) Carbon Dioxide Level 34mmol/L (21-32) Anion Gap 1 (6-14) Blood Urea Nitrogen 34mg/dL (7-20) Creatinine 0.8mg/dL (0.6-1.0) Estimated GFR (Cockcroft-Gault) 71.3 Glucose Level 98mg/dL (70-99) Calcium Level 8.3mg/dL (8.5-10.1) Phosphorus Level 4.8mg/dL (2.6-4.7) Magnesium Level 2.2mg/dL (1.8-2.4) Albumin 2.6g/dL (3.4-5.0) Vancomycin Level Trough 13.2mcg/mL (10.0-20.0) Vancomycin Last Dose Date 09/09/16 Vancomycin Last Dose Time 0900 Laboratory Tests Test 09/10/16 06:10 09/10/16 08:45 09/10/16 11:55 White Blood Count 18.8x10^3/uL (4.0-11.0) Red Blood Count 3.37x10^6/uL (3.50-5.40) Hemoglobin 9.9g/dL (12.0-15.5) Hematocrit 31.4% (36.0-47.0) Mean Corpuscular Volume 93fL (79-100) Mean Corpuscular Hemoglobin 29pg (25-35) Mean Corpuscular Hemoglobin Concent 32g/dL (31-37) Red Cell Distribution Width 18.3% (11.5-14.5) Platelet Count 141x10^3/uL (140-400) Neutrophils (%) (Auto) 90% (31-73) Lymphocytes (%) (Auto) 3% (24-48) Monocytes (%) (Auto) 7% (0-9) Eosinophils (%) (Auto) 0% (0-3) Basophils (%) (Auto) 0% (0-3) Neutrophils # (Auto) 16.9x10^3uL (1.8-7.7) Lymphocytes # (Auto) 0.6x10^3/uL (1.0-4.8) Monocytes # (Auto) 1.2x10^3/uL (0.0-1.1) Eosinophils # (Auto) 0.0x10^3/uL (0.0-0.7) Basophils # (Auto) 0.0x10^3/uL (0.0-0.2) Sodium Level 151mmol/L (136-145) Potassium Level 4.1mmol/L (3.5-5.1) 4.3mmol/L (3.5-5.1) Chloride Level 116mmol/L (98-107) Carbon Dioxide Level 34mmol/L (21-32) Anion Gap 1 (6-14) Blood Urea Nitrogen 34mg/dL (7-20) Creatinine 0.8mg/dL (0.6-1.0) Estimated GFR (Cockcroft-Gault) 71.3 Glucose Level 98mg/dL (70-99) Calcium Level 8.3mg/dL (8.5-10.1) Phosphorus Level 4.8mg/dL (2.6-4.7) Magnesium Level 2.2mg/dL (1.8-2.4) Albumin 2.6g/dL (3.4-5.0) Vancomycin Level Trough 13.2mcg/mL (10.0-20.0) Vancomycin Last Dose Date 09/09/16 Vancomycin Last Dose Time 0900 Medications Active Scripts Medications Dose Route/Sig Days Date Category Dose Instructions Duoneb 0.5-3(2.5) Mg/3 Ml (Albuterol/Ipratropium) 3 Ml Ampul.neb 3 Ml NEB QID PRN 08/28/16 Reported Xanax (Alprazolam) 0.5 Mg Tablet 1 Tab PO Q8HRS PRN 08/28/16 Reported Senna-Docusate Sodium Tablet (Sennosides/Docusate Sodium) 1 Each Tablet 1 Each PO DAILY 08/28/16 Reported Coumadin (Warfarin Sodium) 2.5 Mg Tablet 1 Tab PO DAILY 08/28/[address] Ochoa Polyethylene Glycol [id number] 255 Gm Powder 17 Gm PO DAILY PRN 08/25/16 Reported Hydrocodone-Apap 5-325 (Hydrocodone Bit/Acetaminophen) 1 Each Tablet 2 Tab PO PRN Q4HRS PRN 08/17/16 Rx Proair Hfa (Albuterol Sulfate) 8.5 Gm Hfa.aer.ad 08/13/16 Reported Valsartan-Hctz 160-12.5 Mg Tab (Valsartan/Hydrochlorothiazide) 1 Each Tablet 1 Each PO DAILY 08/12/16 Reported Combivent Respimat Inhal (Ipratropium/Albuterol Sulfate) 4 Gm Aer.w.adap 2 Inh IH QID 08/12/16 Reported Albuterol Sulfate Hfa Inhaler (Albuterol Sulfate) 8.5 Gm Hfa.aer.ad 8.5 Gm IH PRN 08/28/13 Reported Impression . 1. Acute on chronic respiratory failure, multifactorial. worse today 2. Metabolic toxic encephalopathy. worse 3. Renal insufficiency. 4. Recent gastrointestinal bleed, status post cauterization on 09/04/2016 for duodenal ulcers. 5. Status post emergent arteriogram with embolization on 09/05/2016. 6. Lactic acidosis secondary to hypoperfusion and GI bleed along with infection. improved. Plan . 1. Back on BiPAP. 2. f/u ABG 3. antibiotics. 4. off Pressors. 5. Protonix. 6. DNR IVANIA MARIN MD Sep 10, 2016 12:37
[2016-09-10 12:56] LABS: PCO2 ABG 73 mmHg (35-46)
--- NOTE | 2016-09-10 13:32 | PDOC ---
ORTHO PROGRESS NOTES Subjective Patient not responsive. Vitals Vital Signs Date Time Temp Pulse Resp B/P Pulse Ox O2 Delivery O2 Flow Rate FiO2 09/10/16 11:26 88 BiPAP/CPAP 09/10/16 11:00 97.9 107 28 112/57 97.9 09/10/16 08:00 2.0 Labs Laboratory Tests Test 09/08/16 14:00 09/08/16 16:30 09/09/16 05:10 09/09/16 07:20 O2 Saturation 93% (92-99) 93% (92-99) 97% (92-99) Arterial Blood pH 7.28 (7.35-7.45) 7.36 (7.35-7.45) 7.36 (7.35-7.45) Arterial Blood pCO2 at Patient Temp 54mmHg (35-46) 55mmHg (35-46) 50mmHg (35-46) Arterial Blood pO2 at Patient Temp 67mmHg (65-108) 65mmHg (65-108) 98mmHg (65-108) Arterial Blood HCO3 25mmol/L (21-28) 30mmol/L (21-28) 28mmol/L (21-28) Arterial Blood Base Excess -2mmol/L (-3-3) 3mmol/L (-3-3) 2mmol/L (-3-3) FiO2 35 35 35 White Blood Count 20.2x10^3/uL (4.0-11.0) Red Blood Count 3.34x10^6/uL (3.50-5.40) Hemoglobin 9.7g/dL (12.0-15.5) Hematocrit 29.5% (36.0-47.0) Mean Corpuscular Volume 88fL (79-100) Mean Corpuscular Hemoglobin 29pg (25-35) Mean Corpuscular Hemoglobin Concent 33g/dL (31-37) Red Cell Distribution Width 17.3% (11.5-14.5) Platelet Count 121x10^3/uL (140-400) Neutrophils (%) (Auto) 91% (31-73) Lymphocytes (%) (Auto) 4% (24-48) Monocytes (%) (Auto) 5% (0-9) Eosinophils (%) (Auto) 0% (0-3) Basophils (%) (Auto) 0% (0-3) Neutrophils # (Auto) 18.4x10^3uL (1.8-7.7) Lymphocytes # (Auto) 0.7x10^3/uL (1.0-4.8) Monocytes # (Auto) 1.0x10^3/uL (0.0-1.1) Eosinophils # (Auto) 0.0x10^3/uL (0.0-0.7) Basophils # (Auto) 0.0x10^3/uL (0.0-0.2) Segmented Neutrophils % 95% (35-66) Lymphocytes % 2% (24-48) Monocytes % 3% (0-10) Platelet Estimate Decreased (ADEQUATE) Anisocytosis Slight Pappenheimer Bodies Present [place] Bodies Present Sodium Level 148mmol/L (136-145) Potassium Level 3.3mmol/L (3.5-5.1) Chloride Level 113mmol/L (98-107) Carbon Dioxide Level 28mmol/L (21-32) Anion Gap 7 (6-14) Blood Urea Nitrogen 29mg/dL (7-20) Creatinine 0.8mg/dL (0.6-1.0) Estimated GFR (Cockcroft-Gault) 71.3 BUN/Creatinine Ratio 36 (6-20) Glucose Level 134mg/dL (70-99) Calcium Level 8.1mg/dL (8.5-10.1) Phosphorus Level 2.4mg/dL (2.6-4.7) Magnesium Level 1.8mg/dL (1.8-2.4) Total Bilirubin 0.6mg/dL (0.2-1.0) Aspartate Amino Transf (AST/SGOT) 32U/L (15-37) Alanine Aminotransferase (ALT/SGPT) 75U/L (14-59) Alkaline Phosphatase 107U/L (46-116) Total Protein 5.4g/dL (6.4-8.2) Albumin 2.8g/dL (3.4-5.0) Albumin/Globulin Ratio 1.1 (1.0-1.7) Test 09/09/16 12:00 09/10/16 06:10 09/10/16 08:45 4/6/17 11:30 Potassium Level 3.9mmol/L (3.5-5.1) 4.1mmol/L (3.5-5.1) White Blood Count 18.8x10^3/uL (4.0-11.0) Red Blood Count 3.37x10^6/uL (3.50-5.40) Hemoglobin 9.9g/dL (12.0-15.5) Hematocrit 31.4% (36.0-47.0) Mean Corpuscular Volume 93fL (79-100) Mean Corpuscular Hemoglobin 29pg (25-35) Mean Corpuscular Hemoglobin Concent 32g/dL (31-37) Red Cell Distribution Width 18.3% (11.5-14.5) Platelet Count 141x10^3/uL (140-400) Neutrophils (%) (Auto) 90% (31-73) Lymphocytes (%) (Auto) 3% (24-48) Monocytes (%) (Auto) 7% (0-9) Eosinophils (%) (Auto) 0% (0-3) Basophils (%) (Auto) 0% (0-3) Neutrophils # (Auto) 16.9x10^3uL (1.8-7.7) Lymphocytes # (Auto) 0.6x10^3/uL (1.0-4.8) Monocytes # (Auto) 1.2x10^3/uL (0.0-1.1) Eosinophils # (Auto) 0.0x10^3/uL (0.0-0.7) Basophils # (Auto) 0.0x10^3/uL (0.0-0.2) Sodium Level 151mmol/L (136-145) Chloride Level 116mmol/L (98-107) Carbon Dioxide Level 34mmol/L (21-32) Anion Gap 1 (6-14) Blood Urea Nitrogen 34mg/dL (7-20) Creatinine 0.8mg/dL (0.6-1.0) Estimated GFR (Cockcroft-Gault) 71.3 Glucose Level 98mg/dL (70-99) Calcium Level 8.3mg/dL (8.5-10.1) Phosphorus Level 4.8mg/dL (2.6-4.7) Magnesium Level 2.2mg/dL (1.8-2.4) Albumin 2.6g/dL (3.4-5.0) Vancomycin Level Trough 13.2mcg/mL (10.0-20.0) Vancomycin Last Dose Date 09/09/16 Vancomycin Last Dose Time 0900 O2 Saturation 93% (92-99) Arterial Blood pH 7.20 (7.35-7.45) Arterial Blood pCO2 at Patient Temp 73mmHg (35-46) Arterial Blood pO2 at Patient Temp 67mmHg (65-108) Arterial Blood HCO3 28mmol/L (21-28) Arterial Blood Base Excess -2mmol/L (-3-3) Test 09/10/16 11:55 Potassium Level 4.3mmol/L (3.5-5.1) Laboratory Tests Test 09/10/16 06:10 09/10/16 08:45 09/10/16 11:30 09/10/16 11:55 White Blood Count 18.8x10^3/uL (4.0-11.0) Red Blood Count 3.37x10^6/uL (3.50-5.40) Hemoglobin 9.9g/dL (12.0-15.5) Hematocrit 31.4% (36.0-47.0) Mean Corpuscular Volume 93fL (79-100) Mean Corpuscular Hemoglobin 29pg (25-35) Mean Corpuscular Hemoglobin Concent 32g/dL (31-37) Red Cell Distribution Width 18.3% (11.5-14.5) Platelet Count 141x10^3/uL (140-400) Neutrophils (%) (Auto) 90% (31-73) Lymphocytes (%) (Auto) 3% (24-48) Monocytes (%) (Auto) 7% (0-9) Eosinophils (%) (Auto) 0% (0-3) Basophils (%) (Auto) 0% (0-3) Neutrophils # (Auto) 16.9x10^3uL (1.8-7.7) Lymphocytes # (Auto) 0.6x10^3/uL (1.0-4.8) Monocytes # (Auto) 1.2x10^3/uL (0.0-1.1) Eosinophils # (Auto) 0.0x10^3/uL (0.0-0.7) Basophils # (Auto) 0.0x10^3/uL (0.0-0.2) Sodium Level 151mmol/L (136-145) Potassium Level 4.1mmol/L (3.5-5.1) 4.3mmol/L (3.5-5.1) Chloride Level 116mmol/L (98-107) Carbon Dioxide Level 34mmol/L (21-32) Anion Gap 1 (6-14) Blood Urea Nitrogen 34mg/dL (7-20) Creatinine 0.8mg/dL (0.6-1.0) Estimated GFR (Cockcroft-Gault) 71.3 Glucose Level 98mg/dL (70-99) Calcium Level 8.3mg/dL (8.5-10.1) Phosphorus Level 4.8mg/dL (2.6-4.7) Magnesium Level 2.2mg/dL (1.8-2.4) Albumin 2.6g/dL (3.4-5.0) Vancomycin Level Trough 13.2mcg/mL (10.0-20.0) Vancomycin Last Dose Date 09/09/16 Vancomycin Last Dose Time 0900 O2 Saturation 93% (92-99) Arterial Blood pH 7.20 (7.35-7.45) Arterial Blood pCO2 at Patient Temp 73mmHg (35-46) Arterial Blood pO2 at Patient Temp 67mmHg (65-108) Arterial Blood HCO3 28mmol/L (21-28) Arterial Blood Base Excess -2mmol/L (-3-3) Notes Incision closed, weaping serous fluid. No erythema. moderate edema. PPP, skin arm. unable to follow commands, nonresponsive to voice or touch. agonal breathing, on bipap Problems: (1) Closed left femoral fracture Assessment and Plan Incision looks ok will continue to follow Medical condition currently unstable Problem Qualifiers (1) Closed left femoral fracture: Encounter type: subsequent encounter Femur location: shaft Fracture morphology: transverse Fracture alignment: displaced Fracture healing: with routine healing Qualified Code: S72.322D - Displaced transverse fracture of shaft of left femur, subsequent encounter for closed fracture with routine healing OSEI [employer]YLE [employer] Sep 10, 2016 13:32
[2016-09-10 15:00] VITALS: BP 113/68
[2016-09-10 15:18] LABS: HCO3 ABG 26 mmol/L (21-28); PCO2 ABG 51 mmHg (35-46); PO2 ABG 116 mmHg (65-108); SAT O2 ABG 98 % (92-99)
[2016-09-10 15:24] LABS: FIO2 ABG 35; PH ABG 7.33 (7.35-7.45)
[2016-09-10 19:15] VITALS: BP 110/70
[2016-09-10 23:17] VITALS: BP 110/65
[2016-09-11 03:23] VITALS: BP 118/65
[2016-09-11] MEDS: CEFEPIME HCL 1 GM in IV DEXTROSE 5% 100 ML IV SCH ×3 (05:09→22:17)
[2016-09-11 05:27] LABS: HEMATOCRIT 30.4 % (36.0-47.0); HEMOGLOBIN 9.6 g/dL (12.0-15.5); RED BLOOD COUNT 3.33 x10^6/uL (3.50-5.40); RED CELL DISTRIBUTION WIDTH 17.9 % (11.5-14.5); WHITE BLOOD COUNT 13.4 x10^3/uL (4.0-11.0)
[2016-09-11] MEDS: PANTOPRAZOLE IV PUSH 40 MG VIAL. IVP SCH (05:38)
[2016-09-11 05:40] LABS: ALBUMIN 2.4 g/dL (3.4-5.0); ALBUMIN/GLOBULIN RATIO 0.9 (1.0-1.7); CALCIUM 8.6 mg/dL (8.5-10.1); CREATININE 0.9 mg/dL (0.6-1.0); GFR 62.3; PHOSPHORUS 3.5 mg/dL (2.6-4.7); POTASSIUM 4.1 mmol/L (3.5-5.1); TOTAL BILIRUBIN 0.6 mg/dL (0.2-1.0); TOTAL PROTEIN 5.2 g/dL (6.4-8.2)
[2016-09-11] MEDS: AA 4.25%/CALCIUM/LYTES/D5W 1,000 ML IV SCH ×2 (05:47→19:24)
[2016-09-11 07:00] VITALS: BP 139/80
--- NOTE | 2016-09-11 08:52 | PDOC ---
GENERAL General: vss and afebrile. awake and alert though confused this am. wbc decreased to 13K and Hb stable at 9.6. on bipap with resolution of respiratory acidosis. chest diminished bs. heart with mild tachycardia. some edema. apparently accepted at [facility] and could go as long as continued pulmonary followup and ID to follow. Problems: VITAL SIGNS Vital Signs: Vital Signs Date Time Temp Pulse Resp B/P Pulse Ox O2 Delivery O2 Flow Rate FiO2 09/11/16 07:19 94 BiPAP/CPAP 09/11/16 07:00 99.3 106 22 139/80 99.3 09/10/16 08:00 2.0 I & O I & O Intake and Output 09/11/16 07:00 Output Total 950 ml Balance -950 ml Output Urine Total 950 ml # Bowel Movements 1 ALLERGIES Allergies: Allergies Coded Allergies Type Severity Reaction Last Updated Verified amlodipine Adverse Reaction Intermediate Swelling 09/04/16 Yes MEDS Medications: Current Medications Medications (Trade) Dose Ordered Sig/Chrissie Start Time Stop Time Status Last Admin Dose Admin Albumin Human 100 ml @ 100 mls/hr TID 09/05/16 15:00 09/07/16 08:51 DC 09/06/16 23:20 100 MLS/HR Amino Acids/ Electrolytes/ Dextrose (Clinimix E 4.25%-5% Solution) 1,000 ml @ 80 mls/hr [id number] 09/08/16 16:00 09/11/16 05:47 80 MLS/HR Cefepime HCl 1 gm/ Dextrose 100 ml @ 200 mls/hr Q8HRS 09/08/16 14:00 09/11/16 05:09 200 MLS/HR Cefepime HCl 1 gm/ Sodium Chloride 50 ml @ 100 mls/hr Q8HRS 09/08/16 14:00 09/08/16 14:00 DC Desmopressin Acetate (Ddavp) 1 mcg BID 09/05/16 15:00 09/06/16 10:13 DC 09/05/16 20:51 1 MCG Dextrose 1,000 ml @ 100 mls/hr Q10H 09/06/16 20:00 09/09/16 10:50 DC 09/09/16 07:17 100 MLS/HR Diphenhydramine HCl (Benadryl) 50 mg STK-MED ONCE 09/06/16 01:02 09/06/16 01:03 DC Diphenhydramine HCl 25 mg 25 mg 1X ONCE 09/06/16 01:30 09/06/16 01:31 DC 09/06/16 01:25 25 MG Dopamine HCl/ Dextrose 250 ml @ 9.952 mls/ hr 1X ONCE 09/06/16 01:15 09/07/16 02:22 DC 09/06/16 01:22 9.952 MLS/HR Epinephrine HCl (Adrenalin) 1 mg STK-MED ONCE 09/04/16 12:08 09/04/16 14:25 DC 09/04/16 12:08 0.2 MG Epinephrine HCl (Epinephrine Syringe) 1 mg STK-MED ONCE 09/04/16 12:05 09/04/16 12:06 DC Epinephrine HCl 1 mg 1 mg STK-MED ONCE 09/04/16 12:11 09/04/16 14:25 DC 09/04/16 12:11 0.4 MG Fentanyl Citrate (Fentanyl 2ml Vial) 25 mcg 1X ONCE 09/06/16 01:30 09/06/16 01:31 DC 09/06/16 01:22 25 MCG Fluconazole/ Sodium Chloride (Diflucan 200mg/ 100ml Premix) 100 ml @ 100 mls/hr Q24H 09/08/16 09:00 09/10/16 10:27 100 MLS/HR Gelatin (Gelfoam Size 12-7mm) 1 each STK-MED ONCE 09/05/16 23:35 09/05/16 23:36 DC Heparin Sodium/ Sodium Chloride 1,000 unit 1X ONCE 09/05/16 23:30 09/05/16 23:31 DC 09/05/16 23:46 1,000 UNIT Heparin Sodium/ Sodium Chloride 60 unit 60 unit 1X ONCE 09/04/16 08:45 09/04/16 08:46 DC Hydralazine HCl 10 mg 10 mg PRN Q6HRS PRN 09/09/16 10:45 Iohexol (Omnipaque 300 Mg/ml) 150 ml 1X ONCE 09/06/16 00:30 09/06/16 00:31 DC 09/06/16 01:08 150 ML Lidocaine HCl (Lidocaine Pf 2% Vial) 5 ml STK-MED ONCE 09/04/16 10:58 09/04/16 10:59 DC Lidocaine HCl 100 mg 100 mg STK-MED ONCE 09/06/16 03:32 09/06/16 03:33 DC Lidocaine/Sodium Bicarbonate (Buffered Lidocaine 1%) 20 ml 1X ONCE 09/05/16 23:30 09/05/16 23:31 DC 09/05/16 23:46 20 ML Lidocaine/Sodium Bicarbonate 20 ml 20 ml STK-MED ONCE 09/04/16 08:40 09/04/16 08:41 DC Magnesium Sulfate/ Dextrose 50 ml @ 25 mls/hr PRN DAILY PRN 09/06/16 06:30 Midazolam HCl (Versed) 2 mg 1X ONCE 09/06/16 00:30 09/06/16 00:31 DC 09/06/16 01:08 2 MG Morphine Sulfate 2 mg PRN Q4HRS PRN 09/05/16 10:15 09/08/16 11:45 DC 09/05/16 16:31 2 MG Naloxone HCl (Narcan) 0.4 mg STK-MED ONCE 09/05/16 23:54 09/05/16 23:55 DC Norepinephrine Bitartrate (Levophed Vial) 4 mg STK-MED ONCE 09/06/16 00:43 09/06/16 00:44 DC Norepinephrine Bitartrate 8 mg/ Dextrose 258 ml @ 0 mls/hr CONT PRN 09/06/16 12:30 09/06/16 16:32 9.4 MLS/HR Norepinephrine Bitartrate 8 mg/ Sodium Chloride 258 ml @ 0 mls/hr 1X ONCE 09/06/16 01:30 09/06/16 01:31 DC 09/06/16 01:26 58.05 MLS/HR Norepinephrine Bitartrate/Sodium Chloride (Levophed Vial/ Iv Sodium Chloride 0.9% 250ml) 258 ml @ 0 mls/hr CONT PRN 09/04/16 03:30 09/06/16 12:24 DC 09/06/16 01:24 58.05 MLS/HR Pantoprazole Sodium (Protonix Vial) 40 mg 1X ONCE 09/04/16 04:00 09/04/16 04:01 DC 09/04/16 04:06 40 MG Pantoprazole Sodium 40 mg 40 mg DAILYAC 09/10/16 07:30 09/11/16 05:38 40 MG Pantoprazole Sodium 80 mg/ Sodium Chloride 100 ml @ 10 mls/hr Q10H 09/04/16 08:45 UNV Pantoprazole Sodium/Sodium Chloride (Protonix Iv/Iv Sodium Chloride 0.9% 100ml) 100 ml @ 10 mls/hr Q10H 09/04/16 08:45 09/09/16 12:27 DC 09/09/16 08:13 10 MLS/HR Phenylephrine HCl 1 mg 1 mg STK-MED ONCE 09/05/16 12:00 09/07/16 08:22 DC Phenylephrine HCl/ Sodium Chloride (Miky-Synephrine Inj/Iv Sodium Chloride 0.9% 250ml) 252 ml @ 0 mls/hr CONT PRN 09/06/16 08:30 Phytonadione 10 mg/Sodium Chloride 51 ml @ 102 mls/hr 1X ONCE 09/06/16 04:30 09/06/16 08:49 DC Phytonadione 10 mg 10 mg 1X ONCE 09/06/16 09:30 09/06/16 09:31 DC 09/06/16 09:43 10 MG Piperacillin Sod/ Tazobactam Sod 3.375 gm/Sodium Chloride 50 ml @ 100 mls/hr Q6HRS 09/03/16 20:00 09/08/16 08:31 DC 09/08/16 05:26 100 MLS/HR Potassium Phosphate/Sodium Chloride (Potassium Phosphate/Iv Sodium Chloride 0.9% 250ml) 254.5333 ml @ 127.... Q2H 09/09/16 11:00 09/09/16 13:20 DC Potassium Chloride 50 ml @ 50 mls/hr Q2H 09/07/16 10:00 09/07/16 12:59 DC 09/07/16 10:49 50 MLS/HR Potassium Chloride (KCl Premix 20meq) 50 ml @ 50 mls/hr PRN Q2HR PRN 09/05/16 14:30 09/09/16 07:17 50 MLS/HR Propofol (Diprivan) 40 ml @ As Directed STK-MED ONCE 09/04/16 10:58 09/04/16 10:59 DC Sodium Bicarbonate 100 meq 100 meq 1X ONCE 09/08/16 14:45 09/09/16 10:50 DC 09/08/16 14:37 100 MEQ Sodium Bicarbonate 50 meq 50 meq Q6HRS 09/05/16 18:00 09/07/16 08:51 DC 09/07/16 06:10 50 MEQ Sodium Bicarbonate/ Sodium Chloride (Iv Sodium Chloride 0.45%) 1,050 ml @ 125 mls/hr Q8H24M 09/05/16 09:30 09/05/16 14:28 DC 09/05/16 09:06 125 MLS/HR Sodium Chloride 500 ml @ 500 mls/hr PRN QID PRN 09/06/16 06:30 09/09/16 10:50 DC Sodium Phosphate 20 mmol/Dextrose 256.6667 ml @ 64.167 m... 1X ONCE 09/09/16 14:00 09/09/16 17:59 DC 09/09/16 15:24 64.167 MLS/HR Vancomycin HCl 1 each 1X ONCE 09/10/16 08:30 09/10/16 08:31 DC 09/10/16 08:30 1 EACH Vancomycin HCl 1.5 gm/Dextrose 500 ml @ 250 mls/hr 1X ONCE 09/08/16 09:00 09/08/16 10:59 DC 09/08/16 09:29 250 MLS/HR Vancomycin HCl 1.5 gm/Sodium Chloride 500 ml @ 250 mls/hr 1X ONCE 09/08/16 09:00 09/08/16 09:00 DC Vancomycin HCl 1 each 1 each PRN DAILY PRN 09/08/16 08:00 09/10/16 09:49 1 EACH Vancomycin HCl 1 gm/Sodium Chloride 250 ml @ 250 mls/hr 1X ONCE 09/03/16 20:00 09/03/16 20:59 DC 09/03/16 20:08 250 MLS/HR Vancomycin HCl/ Dextrose 250 ml @ 250 mls/hr Q24H 09/09/16 09:00 09/10/16 09:46 DC 09/09/16 09:52 250 MLS/HR Vancomycin HCl/ Sodium Chloride (Iv Sodium Chloride 0.9% 250ml) 250 ml @ 167 mls/hr Q24H 09/10/16 10:00 09/10/16 11:42 167 MLS/HR Vasopressin 40 unit/Dextrose 102 ml @ 6 mls/hr CONT PRN 09/06/16 10:00 09/09/16 10:50 DC 09/07/16 06:00 6 MLS/HR LAB Lab: Laboratory Tests Test 09/10/16 11:30 09/10/16 11:55 09/10/16 14:30 09/11/16 05:00 O2 Saturation 93% (92-99) 98% (92-99) Arterial Blood pH 7.20 (7.35-7.45) 7.33 (7.35-7.45) Arterial Blood pCO2 at Patient Temp 73mmHg (35-46) 51mmHg (35-46) Arterial Blood pO2 at Patient Temp 67mmHg (65-108) 116mmHg (65-108) Arterial Blood HCO3 28mmol/L (21-28) 26mmol/L (21-28) Arterial Blood Base Excess -2mmol/L (-3-3) 0mmol/L (-3-3) Potassium Level 4.3mmol/L (3.5-5.1) 4.1mmol/L (3.5-5.1) FiO2 35 White Blood Count 13.4x10^3/uL (4.0-11.0) Red Blood Count 3.33x10^6/uL (3.50-5.40) Hemoglobin 9.6g/dL (12.0-15.5) Hematocrit 30.4% (36.0-47.0) Mean Corpuscular Volume 91fL (79-100) Mean Corpuscular Hemoglobin 29pg (25-35) Mean Corpuscular Hemoglobin Concent 32g/dL (31-37) Red Cell Distribution Width 17.9% (11.5-14.5) Platelet Count 151x10^3/uL (140-400) Sodium Level 147mmol/L (136-145) Chloride Level 114mmol/L (98-107) Carbon Dioxide Level 30mmol/L (21-32) Anion Gap 3 (6-14) Blood Urea Nitrogen 43mg/dL (7-20) Creatinine 0.9mg/dL (0.6-1.0) Estimated GFR (Cockcroft-Gault) 62.3 BUN/Creatinine Ratio 48 (6-20) Glucose Level 107mg/dL (70-99) Calcium Level 8.6mg/dL (8.5-10.1) Phosphorus Level 3.5mg/dL (2.6-4.7) Magnesium Level 2.3mg/dL (1.8-2.4) Total Bilirubin 0.6mg/dL (0.2-1.0) Aspartate Amino Transf (AST/SGOT) 22U/L (15-37) Alanine Aminotransferase (ALT/SGPT) 44U/L (14-59) Alkaline Phosphatase 130U/L (46-116) Total Protein 5.2g/dL (6.4-8.2) Albumin 2.4g/dL (3.4-5.0) Albumin/Globulin Ratio 0.9 (1.0-1.7) JAMIN EVANS MD Sep 11, 2016 08:52
[2016-09-11] MEDS: FLUCONAZOLE 200MG/100ML PREMIX 100 ML IV SCH (09:19)
[2016-09-11] MEDS: VANCOMYCIN 1.25 GM in IV NORMAL SALINE 250ML 250 ML IV SCH (10:31)
[2016-09-11 11:00] VITALS: BP 159/99
--- NOTE | 2016-09-11 11:17 | PDOC ---
Infectious Disease Note Subjective Subjective On BiPAP Not responsive verbally. moves arms ROS ROS unreliable Vital Sign Vital Signs Vital Signs Date Time Temp Pulse Resp B/P Pulse Ox O2 Delivery O2 Flow Rate FiO2 09/11/16 08:00 Bi-pap 2.0 09/11/16 07:19 94 09/11/16 07:00 99.3 106 22 139/80 99.3 Physical Exam PHYSICAL EXAM GENERAL: NAD NECK: Supple LUNGS: Clear HEART: S1S2, no gallop, no murmur ABD: BS present, mild firm, non tender to light palpation Verma EXT: UE edema. Left lateral hip incision well-approx. rosy, Some serous sanguinous drainage. 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 BLE, warm IV Right neck clean. Labs Lab Laboratory Tests Test 09/10/16 11:30 09/10/16 11:55 09/10/16 14:30 09/11/16 05:00 O2 Saturation 93% (92-99) 98% (92-99) Arterial Blood pH 7.20 (7.35-7.45) 7.33 (7.35-7.45) Arterial Blood pCO2 at Patient Temp 73mmHg (35-46) 51mmHg (35-46) Arterial Blood pO2 at Patient Temp 67mmHg (65-108) 116mmHg (65-108) Arterial Blood HCO3 28mmol/L (21-28) 26mmol/L (21-28) Arterial Blood Base Excess -2mmol/L (-3-3) 0mmol/L (-3-3) Potassium Level 4.3mmol/L (3.5-5.1) 4.1mmol/L (3.5-5.1) FiO2 35 White Blood Count 13.4x10^3/uL (4.0-11.0) Red Blood Count 3.33x10^6/uL (3.50-5.40) Hemoglobin 9.6g/dL (12.0-15.5) Hematocrit 30.4% (36.0-47.0) Mean Corpuscular Volume 91fL (79-100) Mean Corpuscular Hemoglobin 29pg (25-35) Mean Corpuscular Hemoglobin Concent 32g/dL (31-37) Red Cell Distribution Width 17.9% (11.5-14.5) Platelet Count 151x10^3/uL (140-400) Sodium Level 147mmol/L (136-145) Chloride Level 114mmol/L (98-107) Carbon Dioxide Level 30mmol/L (21-32) Anion Gap 3 (6-14) Blood Urea Nitrogen 43mg/dL (7-20) Creatinine 0.9mg/dL (0.6-1.0) Estimated GFR (Cockcroft-Gault) 62.3 BUN/Creatinine Ratio 48 (6-20) Glucose Level 107mg/dL (70-99) Calcium Level 8.6mg/dL (8.5-10.1) Phosphorus Level 3.5mg/dL (2.6-4.7) Magnesium Level 2.3mg/dL (1.8-2.4) Total Bilirubin 0.6mg/dL (0.2-1.0) Aspartate Amino Transf (AST/SGOT) 22U/L (15-37) Alanine Aminotransferase (ALT/SGPT) 44U/L (14-59) Alkaline Phosphatase 130U/L (46-116) Total Protein 5.2g/dL (6.4-8.2) Albumin 2.4g/dL (3.4-5.0) Albumin/Globulin Ratio 0.9 (1.0-1.7) Objective Assessment Fever - better Leukocytosis - better Encephalopathy -persists Hypernatremia - better GI bleed/Erosive gastritis & duodenal ulcers. s/p cauterization, 09/04 s/p PRBCs and emergent arteriogram-embolization w/ coiling 09/05 Anemia. s/p PRBCs times 3 Lactic acidosis likely sec to GI bleed and hypoperfusion, infection possible, less likely Minor drainage at Left hip surgery site Respiratory insufficiency on BiPAP Plan Plan of Care F/u Blood cults - neg Cont Vanc/Fluconazole/Cefepime for another week supportive care Ok to transfer Poor overall prognosis JUAN ANTONIO PERRIN MD Sep 11, 2016 11:17
--- NOTE | 2016-09-11 11:26 | PDOC ---
Objective: Objective: Per RN - possible DC to [facility] today. On BiPAP, opened eyes and trying to talk earlier. Vital Signs: Vital Signs Date Time Temp Pulse Resp B/P Pulse Ox O2 Delivery O2 Flow Rate FiO2 09/11/16 11:16 95 BiPAP/CPAP 09/11/16 11:00 100.4 107 20 159/99 100.4 09/11/16 08:00 2.0 Labs: Laboratory Tests Test 09/10/16 11:30 09/10/16 11:55 09/10/16 14:30 09/11/16 05:00 O2 Saturation 93% 98% Arterial Blood pH 7.20 7.33 Arterial Blood pCO2 at Patient Temp 73mmHg 51mmHg Arterial Blood pO2 at Patient Temp 67mmHg 116mmHg Arterial Blood HCO3 28mmol/L 26mmol/L Arterial Blood Base Excess -2mmol/L 0mmol/L Potassium Level 4.3mmol/L 4.1mmol/L FiO2 35 White Blood Count 13.4x10^3/uL Red Blood Count 3.33x10^6/uL Hemoglobin 9.6g/dL Hematocrit 30.4% Mean Corpuscular Volume 91fL Mean Corpuscular Hemoglobin 29pg Mean Corpuscular Hemoglobin Concent 32g/dL Red Cell Distribution Width 17.9% Platelet Count 151x10^3/uL Sodium Level 147mmol/L Chloride Level 114mmol/L Carbon Dioxide Level 30mmol/L Anion Gap 3 Blood Urea Nitrogen 43mg/dL Creatinine 0.9mg/dL Estimated GFR (Cockcroft-Gault) 62.3 BUN/Creatinine Ratio 48 Glucose Level 107mg/dL Calcium Level 8.6mg/dL Phosphorus Level 3.5mg/dL Magnesium Level 2.3mg/dL Total Bilirubin 0.6mg/dL Aspartate Amino Transf (AST/SGOT) 22U/L Alanine Aminotransferase (ALT/SGPT) 44U/L Alkaline Phosphatase 130U/L Total Protein 5.2g/dL Albumin 2.4g/dL Albumin/Globulin Ratio 0.9 PE: GEN: NAD LUNGS: BiPAP ABD: S/ND/NT NEURO/PSYCH: awake, does not open eyes or respond verbally (but does moan), moving arms A/P: Duodenal ulcer s/p endotherapy, s/p IR embolization -Hgb improved/stable, melena resolved, on IV PPI Resp failure -requires BiPAP -- Await disposition plans. FELICITAS BEACH Sep 11, 2016 11:26
--- NOTE | 2016-09-11 13:54 | PDOC ---
SUBJECTIVE ROS Remains min Responsiveon BiPap unable to getr ROS OBJECTIVE Vital Signs Vital Signs Date Time Temp Pulse Resp B/P Pulse Ox O2 Delivery O2 Flow Rate FiO2 09/11/16 11:16 95 BiPAP/CPAP 09/11/16 11:00 100.4 107 20 159/99 100.4 09/11/16 08:00 2.0 I & 0 Intake and Output 09/11/16 07:00 Output Total 950 ml Balance -950 ml Output Urine Total 950 ml # Bowel Movements 1 PHYSICAL EXAM Physical Exam GEN: min arousable, Oriented x 0, still confused, In min resp distress EYES: Sclera anicteric , Conjunctiva Normal EN: No EN Drainage, Mucous Membranes dryish NECK: no JVD, + JVP, Supple, no Thyromegaly CVS: S1S2, + Murmur, No Gallop, No Rub,+ 2 Edema RESP: + Rales, no Rhonchi,min Acc. Muscle Use GI: BS + ve, NO Bruit, Non Tender, Non Distended : no CVA tenderness, no Suprapubic Tenderness Assessment & Plan ^Na - improved watch trend - on PPN Low K - replace with KCL or K Phos based on next K level; Sliding scale K as ordered, mag is OK today edema unclear etio; ? due to RHF (given Upper ext involvement) . canont r/o Liver etio - lasix as ordered Nutrition - transition to TPN soon unless fevers are felt to be due to line infection COMMENT/RELEVANT DATA Meds Current Medications Medications (Trade) Dose Ordered Sig/Chrissie Start Time Stop Time Status Last Admin Dose Admin Albumin Human 100 ml @ 100 mls/hr TID 09/05/16 15:00 09/07/16 08:51 DC 09/06/16 23:20 100 MLS/HR Amino Acids/ Electrolytes/ Dextrose (Clinimix E 4.25%-5% Solution) 1,000 ml @ 80 mls/hr [id number] 09/08/16 16:00 09/11/16 05:47 80 MLS/HR Cefepime HCl 1 gm/ Dextrose 100 ml @ 200 mls/hr Q8HRS 09/08/16 14:00 09/11/16 05:09 200 MLS/HR Cefepime HCl 1 gm/ Sodium Chloride 50 ml @ 100 mls/hr Q8HRS 09/08/16 14:00 09/08/16 14:00 DC Desmopressin Acetate (Ddavp) 1 mcg BID 09/05/16 15:00 09/06/16 10:13 DC 09/05/16 20:51 1 MCG Dextrose 1,000 ml @ 100 mls/hr Q10H 09/06/16 20:00 09/09/16 10:50 DC 09/09/16 07:17 100 MLS/HR Diphenhydramine HCl (Benadryl) 50 mg STK-MED ONCE 09/06/16 01:02 09/06/16 01:03 DC Diphenhydramine HCl 25 mg 25 mg 1X ONCE 09/06/16 01:30 09/06/16 01:31 DC 09/06/16 01:25 25 MG Dopamine HCl/ Dextrose 250 ml @ 9.952 mls/ hr 1X ONCE 09/06/16 01:15 09/07/16 02:22 DC 09/06/16 01:22 9.952 MLS/HR Epinephrine HCl (Adrenalin) 1 mg STK-MED ONCE 09/04/16 12:08 09/04/16 14:25 DC 09/04/16 12:08 0.2 MG Epinephrine HCl (Epinephrine Syringe) 1 mg STK-MED ONCE 09/04/16 12:05 09/04/16 12:06 DC Epinephrine HCl 1 mg 1 mg STK-MED ONCE 09/04/16 12:11 09/04/16 14:25 DC 09/04/16 12:11 0.4 MG Fentanyl Citrate (Fentanyl 2ml Vial) 25 mcg 1X ONCE 09/06/16 01:30 09/06/16 01:31 DC 09/06/16 01:22 25 MCG Fluconazole/ Sodium Chloride (Diflucan 200mg/ 100ml Premix) 100 ml @ 100 mls/hr Q24H 09/08/16 09:00 09/11/16 09:19 100 MLS/HR Gelatin (Gelfoam Size 12-7mm) 1 each STK-MED ONCE 09/05/16 23:35 09/05/16 23:36 DC Heparin Sodium/ Sodium Chloride 1,000 unit 1X ONCE 09/05/16 23:30 09/05/16 23:31 DC 09/05/16 23:46 1,000 UNIT Heparin Sodium/ Sodium Chloride 60 unit 60 unit 1X ONCE 09/04/16 08:45 09/04/16 08:46 DC Hydralazine HCl 10 mg 10 mg PRN Q6HRS PRN 09/09/16 10:45 Iohexol (Omnipaque 300 Mg/ml) 150 ml 1X ONCE 09/06/16 00:30 09/06/16 00:31 DC 09/06/16 01:08 150 ML Lidocaine HCl (Lidocaine Pf 2% Vial) 5 ml STK-MED ONCE 09/04/16 10:58 09/04/16 10:59 DC Lidocaine HCl 100 mg 100 mg STK-MED ONCE 09/06/16 03:32 09/06/16 03:33 DC Lidocaine/Sodium Bicarbonate (Buffered Lidocaine 1%) 20 ml 1X ONCE 09/05/16 23:30 09/05/16 23:31 DC 09/05/16 23:46 20 ML Lidocaine/Sodium Bicarbonate 20 ml 20 ml STK-MED ONCE 09/04/16 08:40 09/04/16 08:41 DC Magnesium Sulfate/ Dextrose 50 ml @ 25 mls/hr PRN DAILY PRN 09/06/16 06:30 Midazolam HCl (Versed) 2 mg 1X ONCE 09/06/16 00:30 09/06/16 00:31 DC 09/06/16 01:08 2 MG Morphine Sulfate 2 mg PRN Q4HRS PRN 09/05/16 10:15 09/08/16 11:45 DC 09/05/16 16:31 2 MG Naloxone HCl (Narcan) 0.4 mg STK-MED ONCE 09/05/16 23:54 09/05/16 23:55 DC Norepinephrine Bitartrate (Levophed Vial) 4 mg STK-MED ONCE 09/06/16 00:43 09/06/16 00:44 DC Norepinephrine Bitartrate 8 mg/ Dextrose 258 ml @ 0 mls/hr CONT PRN 09/06/16 12:30 09/06/16 16:32 9.4 MLS/HR Norepinephrine Bitartrate 8 mg/ Sodium Chloride 258 ml @ 0 mls/hr 1X ONCE 09/06/16 01:30 09/06/16 01:31 DC 09/06/16 01:26 58.05 MLS/HR Norepinephrine Bitartrate/Sodium Chloride (Levophed Vial/ Iv Sodium Chloride 0.9% 250ml) 258 ml @ 0 mls/hr CONT PRN 09/04/16 03:30 09/06/16 12:24 DC 09/06/16 01:24 58.05 MLS/HR Pantoprazole Sodium (Protonix Vial) 40 mg 1X ONCE 09/04/16 04:00 09/04/16 04:01 DC 09/04/16 04:06 40 MG Pantoprazole Sodium 40 mg 40 mg DAILYAC 09/10/16 07:30 09/11/16 05:38 40 MG Pantoprazole Sodium 80 mg/ Sodium Chloride 100 ml @ 10 mls/hr Q10H 09/04/16 08:45 UNV Pantoprazole Sodium/Sodium Chloride (Protonix Iv/Iv Sodium Chloride 0.9% 100ml) 100 ml @ 10 mls/hr Q10H 09/04/16 08:45 09/09/16 12:27 DC 09/09/16 08:13 10 MLS/HR Phenylephrine HCl 1 mg 1 mg STK-MED ONCE 09/05/16 12:00 09/07/16 08:22 DC Phenylephrine HCl/ Sodium Chloride (Miky-Synephrine Inj/Iv Sodium Chloride 0.9% 250ml) 252 ml @ 0 mls/hr CONT PRN 09/06/16 08:30 Phytonadione 10 mg/Sodium Chloride 51 ml @ 102 mls/hr 1X ONCE 09/06/16 04:30 09/06/16 08:49 DC Phytonadione 10 mg 10 mg 1X ONCE 09/06/16 09:30 09/06/16 09:31 DC 09/06/16 09:43 10 MG Piperacillin Sod/ Tazobactam Sod 3.375 gm/Sodium Chloride 50 ml @ 100 mls/hr Q6HRS 09/03/16 20:00 09/08/16 08:31 DC 09/08/16 05:26 100 MLS/HR Potassium Phosphate/Sodium Chloride (Potassium Phosphate/Iv Sodium Chloride 0.9% 250ml) 254.5333 ml @ 127.... Q2H 09/09/16 11:00 09/09/16 13:20 DC Potassium Chloride 50 ml @ 50 mls/hr Q2H 09/07/16 10:00 09/07/16 12:59 DC 09/07/16 10:49 50 MLS/HR Potassium Chloride (KCl Premix 20meq) 50 ml @ 50 mls/hr PRN Q2HR PRN 09/05/16 14:30 09/09/16 07:17 50 MLS/HR Propofol (Diprivan) 40 ml @ As Directed STK-MED ONCE 09/04/16 10:58 09/04/16 10:59 DC Sodium Bicarbonate 100 meq 100 meq 1X ONCE 09/08/16 14:45 09/09/16 10:50 DC 09/08/16 14:37 100 MEQ Sodium Bicarbonate 50 meq 50 meq Q6HRS 09/05/16 18:00 09/07/16 08:51 DC 09/07/16 06:10 50 MEQ Sodium Bicarbonate/ Sodium Chloride (Iv Sodium Chloride 0.45%) 1,050 ml @ 125 mls/hr Q8H24M 09/05/16 09:30 09/05/16 14:28 DC 09/05/16 09:06 125 MLS/HR Sodium Chloride 500 ml @ 500 mls/hr PRN QID PRN 09/06/16 06:30 09/09/16 10:50 DC Sodium Phosphate 20 mmol/Dextrose 256.6667 ml @ 64.167 m... 1X ONCE 09/09/16 14:00 09/09/16 17:59 DC 09/09/16 15:24 64.167 MLS/HR Vancomycin HCl 1 each 1X ONCE 09/10/16 08:30 09/10/16 08:31 DC 09/10/16 08:30 1 EACH Vancomycin HCl 1.5 gm/Dextrose 500 ml @ 250 mls/hr 1X ONCE 09/08/16 09:00 09/08/16 10:59 DC 09/08/16 09:29 250 MLS/HR Vancomycin HCl 1.5 gm/Sodium Chloride 500 ml @ 250 mls/hr 1X ONCE 09/08/16 09:00 09/08/16 09:00 DC Vancomycin HCl 1 each 1 each PRN DAILY PRN 09/08/16 08:00 09/10/16 09:49 1 EACH Vancomycin HCl 1 gm/Sodium Chloride 250 ml @ 250 mls/hr 1X ONCE 09/03/16 20:00 09/03/16 20:59 DC 09/03/16 20:08 250 MLS/HR Vancomycin HCl/ Dextrose 250 ml @ 250 mls/hr Q24H 09/09/16 09:00 09/10/16 09:46 DC 09/09/16 09:52 250 MLS/HR Vancomycin HCl/ Sodium Chloride (Iv Sodium Chloride 0.9% 250ml) 250 ml @ 167 mls/hr Q24H 09/10/16 10:00 09/11/16 10:31 167 MLS/HR Vasopressin 40 unit/Dextrose 102 ml @ 6 mls/hr CONT PRN 09/06/16 10:00 09/09/16 10:50 DC 09/07/16 06:00 6 MLS/HR Lab Laboratory Tests Test 09/10/16 14:30 09/11/16 05:00 O2 Saturation 98% (92-99) Arterial Blood pH 7.33 (7.35-7.45) Arterial Blood pCO2 at Patient Temp 51mmHg (35-46) Arterial Blood pO2 at Patient Temp 116mmHg (65-108) Arterial Blood HCO3 26mmol/L (21-28) Arterial Blood Base Excess 0mmol/L (-3-3) FiO2 35 White Blood Count 13.4x10^3/uL (4.0-11.0) Red Blood Count 3.33x10^6/uL (3.50-5.40) Hemoglobin 9.6g/dL (12.0-15.5) Hematocrit 30.4% (36.0-47.0) Mean Corpuscular Volume 91fL (79-100) Mean Corpuscular Hemoglobin 29pg (25-35) Mean Corpuscular Hemoglobin Concent 32g/dL (31-37) Red Cell Distribution Width 17.9% (11.5-14.5) Platelet Count 151x10^3/uL (140-400) Sodium Level 147mmol/L (136-145) Potassium Level 4.1mmol/L (3.5-5.1) Chloride Level 114mmol/L (98-107) Carbon Dioxide Level 30mmol/L (21-32) Anion Gap 3 (6-14) Blood Urea Nitrogen 43mg/dL (7-20) Creatinine 0.9mg/dL (0.6-1.0) Estimated GFR (Cockcroft-Gault) 62.3 BUN/Creatinine Ratio 48 (6-20) Glucose Level 107mg/dL (70-99) Calcium Level 8.6mg/dL (8.5-10.1) Phosphorus Level 3.5mg/dL (2.6-4.7) Magnesium Level 2.3mg/dL (1.8-2.4) Total Bilirubin 0.6mg/dL (0.2-1.0) Aspartate Amino Transf (AST/SGOT) 22U/L (15-37) Alanine Aminotransferase (ALT/SGPT) 44U/L (14-59) Alkaline Phosphatase 130U/L (46-116) Total Protein 5.2g/dL (6.4-8.2) Albumin 2.4g/dL (3.4-5.0) Albumin/Globulin Ratio 0.9 (1.0-1.7) TARUN HUSTON MD Sep 11, 2016 13:54
--- NOTE | 2016-09-11 14:28 | PDOC ---
PULMONARY PROGRESS NOTES Subjective remains on BIPAP new fever Vitals Vital Signs Date Time Temp Pulse Resp B/P Pulse Ox O2 Delivery O2 Flow Rate FiO2 09/11/16 14:03 95 BiPAP/CPAP 09/11/16 11:00 100.4 107 20 159/99 100.4 09/11/16 08:00 2.0 General: Lethargic Lungs: Other (decrease bs) Cardiovascular: S1 Abdomen: Soft, Non-tender Extremities: No Edema Skin: Warm Labs Laboratory Tests Test 09/10/16 06:10 09/10/16 08:45 09/10/16 11:30 09/10/16 11:55 White Blood Count 18.8x10^3/uL (4.0-11.0) Red Blood Count 3.37x10^6/uL (3.50-5.40) Hemoglobin 9.9g/dL (12.0-15.5) Hematocrit 31.4% (36.0-47.0) Mean Corpuscular Volume 93fL (79-100) Mean Corpuscular Hemoglobin 29pg (25-35) Mean Corpuscular Hemoglobin Concent 32g/dL (31-37) Red Cell Distribution Width 18.3% (11.5-14.5) Platelet Count 141x10^3/uL (140-400) Neutrophils (%) (Auto) 90% (31-73) Lymphocytes (%) (Auto) 3% (24-48) Monocytes (%) (Auto) 7% (0-9) Eosinophils (%) (Auto) 0% (0-3) Basophils (%) (Auto) 0% (0-3) Neutrophils # (Auto) 16.9x10^3uL (1.8-7.7) Lymphocytes # (Auto) 0.6x10^3/uL (1.0-4.8) Monocytes # (Auto) 1.2x10^3/uL (0.0-1.1) Eosinophils # (Auto) 0.0x10^3/uL (0.0-0.7) Basophils # (Auto) 0.0x10^3/uL (0.0-0.2) Sodium Level 151mmol/L (136-145) Potassium Level 4.1mmol/L (3.5-5.1) 4.3mmol/L (3.5-5.1) Chloride Level 116mmol/L (98-107) Carbon Dioxide Level 34mmol/L (21-32) Anion Gap 1 (6-14) Blood Urea Nitrogen 34mg/dL (7-20) Creatinine 0.8mg/dL (0.6-1.0) Estimated GFR (Cockcroft-Gault) 71.3 Glucose Level 98mg/dL (70-99) Calcium Level 8.3mg/dL (8.5-10.1) Phosphorus Level 4.8mg/dL (2.6-4.7) Magnesium Level 2.2mg/dL (1.8-2.4) Albumin 2.6g/dL (3.4-5.0) Vancomycin Level Trough 13.2mcg/mL (10.0-20.0) Vancomycin Last Dose Date 09/09/16 Vancomycin Last Dose Time 0900 O2 Saturation 93% (92-99) Arterial Blood pH 7.20 (7.35-7.45) Arterial Blood pCO2 at Patient Temp 73mmHg (35-46) Arterial Blood pO2 at Patient Temp 67mmHg (65-108) Arterial Blood HCO3 28mmol/L (21-28) Arterial Blood Base Excess -2mmol/L (-3-3) Test 09/10/16 14:30 09/11/16 05:00 O2 Saturation 98% (92-99) Arterial Blood pH 7.33 (7.35-7.45) Arterial Blood pCO2 at Patient Temp 51mmHg (35-46) Arterial Blood pO2 at Patient Temp 116mmHg (65-108) Arterial Blood HCO3 26mmol/L (21-28) Arterial Blood Base Excess 0mmol/L (-3-3) FiO2 35 White Blood Count 13.4x10^3/uL (4.0-11.0) Red Blood Count 3.33x10^6/uL (3.50-5.40) Hemoglobin 9.6g/dL (12.0-15.5) Hematocrit 30.4% (36.0-47.0) Mean Corpuscular Volume 91fL (79-100) Mean Corpuscular Hemoglobin 29pg (25-35) Mean Corpuscular Hemoglobin Concent 32g/dL (31-37) Red Cell Distribution Width 17.9% (11.5-14.5) Platelet Count 151x10^3/uL (140-400) Sodium Level 147mmol/L (136-145) Potassium Level 4.1mmol/L (3.5-5.1) Chloride Level 114mmol/L (98-107) Carbon Dioxide Level 30mmol/L (21-32) Anion Gap 3 (6-14) Blood Urea Nitrogen 43mg/dL (7-20) Creatinine 0.9mg/dL (0.6-1.0) Estimated GFR (Cockcroft-Gault) 62.3 BUN/Creatinine Ratio 48 (6-20) Glucose Level 107mg/dL (70-99) Calcium Level 8.6mg/dL (8.5-10.1) Phosphorus Level 3.5mg/dL (2.6-4.7) Magnesium Level 2.3mg/dL (1.8-2.4) Total Bilirubin 0.6mg/dL (0.2-1.0) Aspartate Amino Transf (AST/SGOT) 22U/L (15-37) Alanine Aminotransferase (ALT/SGPT) 44U/L (14-59) Alkaline Phosphatase 130U/L (46-116) Total Protein 5.2g/dL (6.4-8.2) Albumin 2.4g/dL (3.4-5.0) Albumin/Globulin Ratio 0.9 (1.0-1.7) Laboratory Tests Test 09/10/16 14:30 09/11/16 05:00 O2 Saturation 98% (92-99) Arterial Blood pH 7.33 (7.35-7.45) Arterial Blood pCO2 at Patient Temp 51mmHg (35-46) Arterial Blood pO2 at Patient Temp 116mmHg (65-108) Arterial Blood HCO3 26mmol/L (21-28) Arterial Blood Base Excess 0mmol/L (-3-3) FiO2 35 White Blood Count 13.4x10^3/uL (4.0-11.0) Red Blood Count 3.33x10^6/uL (3.50-5.40) Hemoglobin 9.6g/dL (12.0-15.5) Hematocrit 30.4% (36.0-47.0) Mean Corpuscular Volume 91fL (79-100) Mean Corpuscular Hemoglobin 29pg (25-35) Mean Corpuscular Hemoglobin Concent 32g/dL (31-37) Red Cell Distribution Width 17.9% (11.5-14.5) Platelet Count 151x10^3/uL (140-400) Sodium Level 147mmol/L (136-145) Potassium Level 4.1mmol/L (3.5-5.1) Chloride Level 114mmol/L (98-107) Carbon Dioxide Level 30mmol/L (21-32) Anion Gap 3 (6-14) Blood Urea Nitrogen 43mg/dL (7-20) Creatinine 0.9mg/dL (0.6-1.0) Estimated GFR (Cockcroft-Gault) 62.3 BUN/Creatinine Ratio 48 (6-20) Glucose Level 107mg/dL (70-99) Calcium Level 8.6mg/dL (8.5-10.1) Phosphorus Level 3.5mg/dL (2.6-4.7) Magnesium Level 2.3mg/dL (1.8-2.4) Total Bilirubin 0.6mg/dL (0.2-1.0) Aspartate Amino Transf (AST/SGOT) 22U/L (15-37) Alanine Aminotransferase (ALT/SGPT) 44U/L (14-59) Alkaline Phosphatase 130U/L (46-116) Total Protein 5.2g/dL (6.4-8.2) Albumin 2.4g/dL (3.4-5.0) Albumin/Globulin Ratio 0.9 (1.0-1.7) Medications Active Scripts Medications Dose Route/Sig Days Date Category Dose Instructions Duoneb 0.5-3(2.5) Mg/3 Ml (Albuterol/Ipratropium) 3 Ml Ampul.neb 3 Ml NEB QID PRN 08/28/16 Reported Xanax (Alprazolam) 0.5 Mg Tablet 1 Tab PO Q8HRS PRN 08/28/16 Reported Senna-Docusate Sodium Tablet (Sennosides/Docusate Sodium) 1 Each Tablet 1 Each PO DAILY 08/28/16 Reported Coumadin (Warfarin Sodium) 2.5 Mg Tablet 1 Tab PO DAILY 08/28/[address] Ochoa Polyethylene Glycol [id number] 255 Gm Powder 17 Gm PO DAILY PRN 08/25/16 Reported Hydrocodone-Apap 5-325 (Hydrocodone Bit/Acetaminophen) 1 Each Tablet 2 Tab PO PRN Q4HRS PRN 08/17/16 Rx Proair Hfa (Albuterol Sulfate) 8.5 Gm Hfa.aer.ad 08/13/16 Reported Valsartan-Hctz 160-12.5 Mg Tab (Valsartan/Hydrochlorothiazide) 1 Each Tablet 1 Each PO DAILY 08/12/16 Reported Combivent Respimat Inhal (Ipratropium/Albuterol Sulfate) 4 Gm Aer.w.adap 2 Inh IH QID 08/12/16 Reported Albuterol Sulfate Hfa Inhaler (Albuterol Sulfate) 8.5 Gm Hfa.aer.ad 8.5 Gm IH PRN 08/28/13 Reported Impression . 1. Acute on chronic respiratory failure, multifactorial. worse 09/10. Has been on BIPAP since 09/10 2. Metabolic toxic encephalopathy. 3. Renal insufficiency. 4. Recent gastrointestinal bleed, status post cauterization on 09/04/2016 for duodenal ulcers. 5. Status post emergent arteriogram with embolization on 09/05/2016. 6. Lactic acidosis secondary to hypoperfusion and GI bleed along with infection. improved. 7. New fever Plan . 1. BiPAP. 2. f/u ABG today . Ig respiratory acidosis improved, will try w/o BIPAP 3. antibiotics.per ID 4. Nebs 5. Protonix. 6. DNR 7. awaiting [facility]/ will see improvement in ABG first IVANIA MARIN MD Sep 11, 2016 14:28
[2016-09-11 14:29] LABS: HCO3 ABG 27 mmol/L (21-28); PCO2 ABG 46 mmHg (35-46); PH ABG 7.39 (7.35-7.45); PO2 ABG 71 mmHg (65-108); SAT O2 ABG 93 % (92-99)
[2016-09-11] MEDS: FUROSEMIDE 40 MG/4 ML VIAL. IVP SCH (14:37)
[2016-09-11 15:00] VITALS: BP 149/95
[2016-09-11 15:01] LABS: FIO2 ABG 30
[2016-09-11] MEDS: METRONIDAZOLE 500mg PREMIX 100 ML IV SCH ×2 (17:26→22:20)
[2016-09-11 19:00] VITALS: BP 143/70
[2016-09-11 23:00] VITALS: BP 140/73
--- NOTE | 2016-09-12 01:05 | HP ---
ADMIT DATE: 09/03/2016 CHIEF COMPLAINT AND HISTORY OF PRESENT ILLNESS: This is a 70-year-old white female who is well known to me from followup in the office. The patient was in [place] [facility] when she became hypotensive. She has had 2 recent hip fractures and severe end-stage COPD. She was transferred to the Emergency Room where her hemoglobin last checked was 7.5, being several days past hip repair and was admitted because of the hypotension as well as the anemia. Very quickly upon arriving to the floor, nursing called about large amounts of maroon-colored stool consistent with a GI bleed suggesting that that is to be the etiology. PAST MEDICAL HISTORY: Remarkable for anxiety, depression, COPD, hypertension, chronic kidney disease. PAST SURGICAL HISTORY: She has had a prior hysterectomy. MEDICATIONS: Brought with the patient, listed on the computer and have been addressed. ALLERGIES: SHE IS ALLERGIC TO AMLODIPINE. SOCIAL HISTORY: She does have a history of smoking, quitting several years ago. Denies alcohol or drug use. She is ____ , lives at home with her . FAMILY HISTORY: Noncontributory. REVIEW OF SYSTEMS: Remarkable for feeling weak, more short of breath than usual. She denies abdominal pain. LABORATORY DATA: Initial hemoglobin in the Emergency Room was 6.9. BUN was elevated at 47 with a creatinine of 1.1. IMPRESSION: Hypotension related to lower gastrointestinal bleed with anemia in a patient with severe chronic obstructive pulmonary disease. PLAN: The patient has been admitted. IV fluids will be given for the blood pressure. Blood products have been ordered. GI has been consulted and the patient will be monitored, managed and treated appropriately. JAMIN EVANS MD DR: JEEVAN/marni JOB#: [id number] / [id number]
[2016-09-12 03:00] VITALS: BP 129/63
[2016-09-12] MEDS: CEFEPIME HCL 1 GM in IV DEXTROSE 5% 100 ML IV SCH ×3 (05:05→20:57)
[2016-09-12] MEDS: METRONIDAZOLE 500mg PREMIX 100 ML IV SCH ×3 (06:33→20:56)
[2016-09-12 07:00] VITALS: BP_SYST 118; BP_SYST 130; BP_DIAS 67; BP_DIAS 71
[2016-09-12] MEDS: AA 4.25%/CALCIUM/LYTES/D5W 1,000 ML IV SCH ×2 (07:30→20:56)
[2016-09-12] MEDS: FLUCONAZOLE 200MG/100ML PREMIX 100 ML IV SCH (08:52)
[2016-09-12] MEDS: FUROSEMIDE 40 MG/4 ML VIAL. IVP SCH (08:53)
[2016-09-12] MEDS: PANTOPRAZOLE IV PUSH 40 MG VIAL. IVP SCH (08:53)
--- NOTE | 2016-09-12 09:19 | PDOC ---
PULMONARY PROGRESS NOTES Subjective on 02, answers w nodding her head. she answers all questions yes, Vitals Vital Signs Date Time Temp Pulse Resp B/P Pulse Ox O2 Delivery O2 Flow Rate FiO2 09/12/16 07:00 97.5 89 20 130/71 100 Nasal Cannula 3.0 97.5 General: Lethargic HEENT: Other (nc at perrl nose throat clear. ) Lungs: Crackles Cardiovascular: S1, S2 Abdomen: Soft, Non-tender Extremities: No Edema Skin: Warm Labs Laboratory Tests Test 09/10/16 11:30 09/10/16 11:55 09/10/16 14:30 09/11/16 05:00 O2 Saturation 93% (92-99) 98% (92-99) Arterial Blood pH 7.20 (7.35-7.45) 7.33 (7.35-7.45) Arterial Blood pCO2 at Patient Temp 73mmHg (35-46) 51mmHg (35-46) Arterial Blood pO2 at Patient Temp 67mmHg (65-108) 116mmHg (65-108) Arterial Blood HCO3 28mmol/L (21-28) 26mmol/L (21-28) Arterial Blood Base Excess -2mmol/L (-3-3) 0mmol/L (-3-3) Potassium Level 4.3mmol/L (3.5-5.1) 4.1mmol/L (3.5-5.1) FiO2 35 White Blood Count 13.4x10^3/uL (4.0-11.0) Red Blood Count 3.33x10^6/uL (3.50-5.40) Hemoglobin 9.6g/dL (12.0-15.5) Hematocrit 30.4% (36.0-47.0) Mean Corpuscular Volume 91fL (79-100) Mean Corpuscular Hemoglobin 29pg (25-35) Mean Corpuscular Hemoglobin Concent 32g/dL (31-37) Red Cell Distribution Width 17.9% (11.5-14.5) Platelet Count 151x10^3/uL (140-400) Sodium Level 147mmol/L (136-145) Chloride Level 114mmol/L (98-107) Carbon Dioxide Level 30mmol/L (21-32) Anion Gap 3 (6-14) Blood Urea Nitrogen 43mg/dL (7-20) Creatinine 0.9mg/dL (0.6-1.0) Estimated GFR (Cockcroft-Gault) 62.3 BUN/Creatinine Ratio 48 (6-20) Glucose Level 107mg/dL (70-99) Calcium Level 8.6mg/dL (8.5-10.1) Phosphorus Level 3.5mg/dL (2.6-4.7) Magnesium Level 2.3mg/dL (1.8-2.4) Total Bilirubin 0.6mg/dL (0.2-1.0) Aspartate Amino Transf (AST/SGOT) 22U/L (15-37) Alanine Aminotransferase (ALT/SGPT) 44U/L (14-59) Alkaline Phosphatase 130U/L (46-116) Total Protein 5.2g/dL (6.4-8.2) Albumin 2.4g/dL (3.4-5.0) Albumin/Globulin Ratio 0.9 (1.0-1.7) Test 09/11/16 10:13 09/11/16 15:40 O2 Saturation 93% (92-99) Arterial Blood pH 7.39 (7.35-7.45) Arterial Blood pCO2 at Patient Temp 46mmHg (35-46) Arterial Blood pO2 at Patient Temp 71mmHg (65-108) Arterial Blood HCO3 27mmol/L (21-28) Arterial Blood Base Excess 1mmol/L (-3-3) FiO2 30 Potassium Level 3.8mmol/L (3.5-5.1) Laboratory Tests Test 09/11/16 10:13 09/11/16 15:40 O2 Saturation 93% (92-99) Arterial Blood pH 7.39 (7.35-7.45) Arterial Blood pCO2 at Patient Temp 46mmHg (35-46) Arterial Blood pO2 at Patient Temp 71mmHg (65-108) Arterial Blood HCO3 27mmol/L (21-28) Arterial Blood Base Excess 1mmol/L (-3-3) FiO2 30 Potassium Level 3.8mmol/L (3.5-5.1) Medications Active Scripts Medications Dose Route/Sig Days Date Category Dose Instructions Duoneb 0.5-3(2.5) Mg/3 Ml (Albuterol/Ipratropium) 3 Ml Ampul.neb 3 Ml NEB QID PRN 08/28/16 Reported Xanax (Alprazolam) 0.5 Mg Tablet 1 Tab PO Q8HRS PRN 08/28/16 Reported Senna-Docusate Sodium Tablet (Sennosides/Docusate Sodium) 1 Each Tablet 1 Each PO DAILY 08/28/16 Reported Coumadin (Warfarin Sodium) 2.5 Mg Tablet 1 Tab PO DAILY 08/28/[address] Ochoa Polyethylene Glycol 3350 255 Gm Powder 17 Gm PO DAILY PRN 08/25/16 Reported Hydrocodone-Apap 5-325 (Hydrocodone Bit/Acetaminophen) 1 Each Tablet 2 Tab PO PRN Q4HRS PRN 08/17/16 Rx Proair Hfa (Albuterol Sulfate) 8.5 Gm Hfa.aer.ad 08/13/16 Reported Valsartan-Hctz 160-12.5 Mg Tab (Valsartan/Hydrochlorothiazide) 1 Each Tablet 1 Each PO DAILY 08/12/16 Reported Combivent Respimat Inhal (Ipratropium/Albuterol Sulfate) 4 Gm Aer.w.adap 2 Inh IH QID 08/12/16 Reported Albuterol Sulfate Hfa Inhaler (Albuterol Sulfate) 8.5 Gm Hfa.aer.ad 8.5 Gm IH PRN 08/28/13 Reported Impression . 1. Acute on chronic respiratory failure, multifactorial. worse 09/10. Has been on BIPAP since 09/10 2. Metabolic toxic encephalopathy. 3. Renal insufficiency. 4. Recent gastrointestinal bleed, status post cauterization on 09/04/2016 for duodenal ulcers. 5. Status post emergent arteriogram with embolization on 09/05/2016. 6. Lactic acidosis secondary to hypoperfusion and GI bleed along with infection. improved. 7. New fever, resolved Plan . 1. BiPAP prn. o2 titration 2. f/u ABG today . 3. antibiotics.per ID 4. Nebs 5. Protonix. 6. DNR 7. awaiting select transfer discussed w MOR Walker MD Sep 12, 2016 09:18
[2016-09-12 11:00] VITALS: BP 138/70
--- NOTE | 2016-09-12 12:11 | PDOC ---
SUBJECTIVE Subjective more alert and following commands OBJECTIVE Vital Signs Vital Signs Date Time Temp Pulse Resp B/P Pulse Ox O2 Delivery O2 Flow Rate FiO2 09/12/16 11:00 97.7 85 20 138/70 98 Nasal Cannula 3.0 97.7 09/12/16 07:00 97.5 89 20 130/71 100 Nasal Cannula 3.0 97.5 09/12/16 03:00 97.6 88 18 129/63 99 Nasal Cannula 3.0 97.6 09/11/16 23:00 98.1 88 18 140/73 100 Nasal Cannula 3.0 98.1 09/11/16 20:10 Nasal Cannula 3.0 09/11/16 19:00 98.4 102 18 143/70 100 Nasal Cannula 4.0 98.4 09/11/16 15:00 99.3 95 20 149/95 95 BiPAP/CPAP 99.3 09/11/16 14:03 95 BiPAP/CPAP I & O Intake and Output 09/12/16 07:00 Intake Total 1570 ml Output Total 4750 ml Balance -3180 ml IV Total 1570 ml Output Urine Total 4750 ml PHYSICAL EXAM Physical Exam looks SOB lungs with decrease BS heart RRR abd soft , none tender ext very edematous all over hard stick ASSESSMENT/PLAN Assessment/Plan 1. Acute on chronic respiratory failure, multifactorial. on BiPAP 2. Metabolic toxic encephalopathy. 3. Renal insufficiency. 4. Recent gastrointestinal bleed, HB pending 5. Status post emergent arteriogram with embolization on 09/05/2016. 6. Lactic acidosis secondary to hypoperfusion and GI bleed along with infection. improved. more alert today proceed with bed side swallow eval and follow recommendation if can eat Problems: COMMENT Lab Laboratory Tests Test 09/11/16 15:40 Potassium Level 3.8mmol/L (3.5-5.1) NATHANAEL MCPHERSON MD Sep 12, 2016 12:11
[2016-09-12 12:54] LABS: ALBUMIN 2.3 g/dL (3.4-5.0); CALCIUM 8.1 mg/dL (8.5-10.1); CREATININE 0.9 mg/dL (0.6-1.0); GFR 62.3; PHOSPHORUS 3.8 mg/dL (2.6-4.7); POTASSIUM 3.5 mmol/L (3.5-5.1)
[2016-09-12 14:50] LABS: HCO3 ABG 28 mmol/L (21-28); PH ABG 7.28 (7.35-7.45); PO2 ABG 98 mmHg (65-108); SAT O2 ABG 96 % (92-99)
[2016-09-12 15:00] VITALS: BP 119/65
[2016-09-12 15:01] LABS: PCO2 ABG 62 mmHg (35-46)
--- NOTE | 2016-09-12 15:15 | PDOC ---
Infectious Disease Note Subjective Subjective No fever last 24 hours Not responsive verbally. ROS ROS Limited Vital Sign Vital Signs Vital Signs Date Time Temp Pulse Resp B/P Pulse Ox O2 Delivery O2 Flow Rate FiO2 09/12/16 11:00 97.7 85 20 138/70 98 Nasal Cannula 3.0 97.7 Physical Exam PHYSICAL EXAM GENERAL: Alert, quiet NECK: Supple LUNGS: Clear HEART: S1S2, no gallop, no murmur ABD: BS present, soft, NT Verma EXT: .BLE pitting edema, no cyanosis. Left lateral hip incision. SKIN: No rash. Labs Lab Laboratory Tests Test 09/11/16 15:40 09/12/16 12:15 Potassium Level 3.8mmol/L (3.5-5.1) 3.5mmol/L (3.5-5.1) Sodium Level 147mmol/L (136-145) Chloride Level 108mmol/L (98-107) Carbon Dioxide Level 33mmol/L (21-32) Anion Gap 6 (6-14) Blood Urea Nitrogen 40mg/dL (7-20) Creatinine 0.9mg/dL (0.6-1.0) Estimated GFR (Cockcroft-Gault) 62.3 Glucose Level 124mg/dL (70-99) Calcium Level 8.1mg/dL (8.5-10.1) Phosphorus Level 3.8mg/dL (2.6-4.7) Magnesium Level 2.1mg/dL (1.8-2.4) Albumin 2.3g/dL (3.4-5.0) Micro BLOOD CULTURE Preliminary NO GROWTH AFTER 4 DAY Objective Assessment Fever - better Leukocytosis, trending down Encephalopathy -persists Hypernatremia - better GI bleed/Erosive gastritis & duodenal ulcers. s/p cauterization, 09/04 s/p PRBCs and emergent arteriogram-embolization w/ coiling 09/05 Anemia. s/p PRBCs times 3 Lactic acidosis likely sec to GI bleed and hypoperfusion, infection possible, less likely Minor drainage at Left hip surgery site Respiratory insufficiency on BiPAP I Plan Plan of Care Cont Zyvox, cefepime, Flagyl & Fluconazole supportive care Poor overall prognosis Attending Co-Sign The patient was seen and interviewed as well as examined at the bedside. The chart was reviewed. The case was discussed. Agree with the plan of care. SUBLETTE,SALMA C TRUCK TECHNICIAN Sep 12, 2016 15:15 LETITIA HUSTON MD Sep 12, 2016 16:47
[2016-09-12] MEDS ORDERED: ACETAMINOPHEN 650 MG SUPP.RECT. PR PRN (16:15)
--- NOTE | 2016-09-12 16:43 | PDOC ---
Provider Note Provider Note RENAL F/U : ELVIS. Subjective No active c/o reported. On Bipap. Vitals: Stable. Afebrile. ROS : No new c/o or issues. General: No distreess. Awake. HEENT: Neck supple. No JVD. Lungs: Decreased bases.No rales. Cardiovascular: S1, S2 Abdomen: Soft, Non-tender, Other (no mass) Extremities: Trace edema Skin: Warm Labs, I/Os, meds : reviewed. A/P : ARF CKD ACUTE RESP FAILURE PROT MAYTE MALNUTRITION. Supportive care. Labs stable Cr doing OK. CPM. . SOBIA LEAL MD Sep 12, 2016 16:43
[2016-09-12 19:00] VITALS: BP 112/64
[2016-09-12 23:00] VITALS: BP 95/56
[2016-09-13 03:00] VITALS: BP 118/67
[2016-09-13] MEDS: CEFEPIME HCL 1 GM in IV DEXTROSE 5% 100 ML IV SCH ×3 (04:41→22:14)
[2016-09-13] MEDS: PANTOPRAZOLE IV PUSH 40 MG VIAL. IVP SCH (05:19)
[2016-09-13] MEDS: METRONIDAZOLE 500mg PREMIX 100 ML IV SCH ×3 (05:21→22:14)
[2016-09-13 06:02] LABS: ALBUMIN 2.4 g/dL (3.4-5.0); CALCIUM 8.2 mg/dL (8.5-10.1); CREATININE 0.9 mg/dL (0.6-1.0); GFR 62.3; PHOSPHORUS 2.9 mg/dL (2.6-4.7)
[2016-09-13 07:00] VITALS: BP 132/72
[2016-09-13] MEDS: AA 4.25%/CALCIUM/LYTES/D5W 1,000 ML IV SCH ×2 (08:30→21:00)
--- NOTE | 2016-09-13 09:02 | PDOC ---
PULMONARY PROGRESS NOTES Subjective on 02, answers w nodding her head. she answers all questions yes, Vitals Vital Signs Date Time Temp Pulse Resp B/P Pulse Ox O2 Delivery O2 Flow Rate FiO2 09/13/16 07:00 97.9 94 20 132/72 91 Nasal Cannula 3.0 97.9 General: Alert, Lethargic HEENT: Other (nc at perrl nose throat clear. ) Lungs: Wheezing, Crackles Cardiovascular: S1, S2 Abdomen: Soft, Non-tender Extremities: No Edema Skin: Warm Labs Laboratory Tests Test 09/11/16 10:13 09/11/16 15:40 09/12/16 12:15 09/12/16 14:40 O2 Saturation 93% (92-99) 96% (92-99) Arterial Blood pH 7.39 (7.35-7.45) 7.28 (7.35-7.45) Arterial Blood pCO2 at Patient Temp 46mmHg (35-46) 62mmHg (35-46) Arterial Blood pO2 at Patient Temp 71mmHg (65-108) 98mmHg (65-108) Arterial Blood HCO3 27mmol/L (21-28) 28mmol/L (21-28) Arterial Blood Base Excess 1mmol/L (-3-3) 1mmol/L (-3-3) FiO2 30 2.5 lpm nc Potassium Level 3.8mmol/L (3.5-5.1) 3.5mmol/L (3.5-5.1) Sodium Level 147mmol/L (136-145) Chloride Level 108mmol/L (98-107) Carbon Dioxide Level 33mmol/L (21-32) Anion Gap 6 (6-14) Blood Urea Nitrogen 40mg/dL (7-20) Creatinine 0.9mg/dL (0.6-1.0) Estimated GFR (Cockcroft-Gault) 62.3 Glucose Level 124mg/dL (70-99) Calcium Level 8.1mg/dL (8.5-10.1) Phosphorus Level 3.8mg/dL (2.6-4.7) Magnesium Level 2.1mg/dL (1.8-2.4) Albumin 2.3g/dL (3.4-5.0) Test 09/13/16 05:00 Sodium Level 146mmol/L (136-145) Potassium Level 3.0mmol/L (3.5-5.1) Chloride Level 107mmol/L (98-107) Carbon Dioxide Level 33mmol/L (21-32) Anion Gap 6 (6-14) Blood Urea Nitrogen 37mg/dL (7-20) Creatinine 0.9mg/dL (0.6-1.0) Estimated GFR (Cockcroft-Gault) 62.3 Glucose Level 116mg/dL (70-99) Calcium Level 8.2mg/dL (8.5-10.1) Phosphorus Level 2.9mg/dL (2.6-4.7) Albumin 2.4g/dL (3.4-5.0) Laboratory Tests Test 09/12/16 12:15 09/12/16 14:40 09/13/16 05:00 Sodium Level 147mmol/L (136-145) 146mmol/L (136-145) Potassium Level 3.5mmol/L (3.5-5.1) 3.0mmol/L (3.5-5.1) Chloride Level 108mmol/L (98-107) 107mmol/L (98-107) Carbon Dioxide Level 33mmol/L (21-32) 33mmol/L (21-32) Anion Gap 6 (6-14) 6 (6-14) Blood Urea Nitrogen 40mg/dL (7-20) 37mg/dL (7-20) Creatinine 0.9mg/dL (0.6-1.0) 0.9mg/dL (0.6-1.0) Estimated GFR (Cockcroft-Gault) 62.3 62.3 Glucose Level 124mg/dL (70-99) 116mg/dL (70-99) Calcium Level 8.1mg/dL (8.5-10.1) 8.2mg/dL (8.5-10.1) Phosphorus Level 3.8mg/dL (2.6-4.7) 2.9mg/dL (2.6-4.7) Magnesium Level 2.1mg/dL (1.8-2.4) Albumin 2.3g/dL (3.4-5.0) 2.4g/dL (3.4-5.0) O2 Saturation 96% (92-99) Arterial Blood pH 7.28 (7.35-7.45) Arterial Blood pCO2 at Patient Temp 62mmHg (35-46) Arterial Blood pO2 at Patient Temp 98mmHg (65-108) Arterial Blood HCO3 28mmol/L (21-28) Arterial Blood Base Excess 1mmol/L (-3-3) FiO2 2.5 lpm nc Medications Active Scripts Medications Dose Route/Sig Days Date Category Dose Instructions Duoneb 0.5-3(2.5) Mg/3 Ml (Albuterol/Ipratropium) 3 Ml Ampul.neb 3 Ml NEB QID PRN 08/28/16 Reported Xanax (Alprazolam) 0.5 Mg Tablet 1 Tab PO Q8HRS PRN 08/28/16 Reported Senna-Docusate Sodium Tablet (Sennosides/Docusate Sodium) 1 Each Tablet 1 Each PO DAILY 08/28/16 Reported Coumadin (Warfarin Sodium) 2.5 Mg Tablet 1 Tab PO DAILY 08/28/[address] Ochoa Polyethylene Glycol 3350 255 Gm Powder 17 Gm PO DAILY PRN 08/25/16 Reported Hydrocodone-Apap 5-325 (Hydrocodone Bit/Acetaminophen) 1 Each Tablet 2 Tab PO PRN Q4HRS PRN 08/17/16 Rx Proair Hfa (Albuterol Sulfate) 8.5 Gm Hfa.aer.ad 08/13/16 Reported Valsartan-Hctz 160-12.5 Mg Tab (Valsartan/Hydrochlorothiazide) 1 Each Tablet 1 Each PO DAILY 08/12/16 Reported Combivent Respimat Inhal (Ipratropium/Albuterol Sulfate) 4 Gm Aer.w.adap 2 Inh IH QID 08/12/16 Reported Albuterol Sulfate Hfa Inhaler (Albuterol Sulfate) 8.5 Gm Hfa.aer.ad 8.5 Gm IH PRN 08/28/13 Reported Comments cxr reviewed, no infilt Impression . 1. Acute on chronic respiratory failure, multifactorial. worse 09/10. Has been on BIPAP since 09/10 2. Metabolic toxic encephalopathy. 3. Renal insufficiency. 4. Recent gastrointestinal bleed, status post cauterization on 09/04/2016 for duodenal ulcers. 5. Status post emergent arteriogram with embolization on 09/05/2016. 6. Lactic acidosis secondary to hypoperfusion and GI bleed along with infection. improved. 7. New fever, resolved 8. acute bronchospasm Plan . 1. BiPAP prn. o2 titration 2. elevate hob . 3. antibiotics.per ID 4. Nebs 5. Protonix. 6. DNR 7. add solumedrol 40 mg bid discussed w MOR Walker MD Sep 13, 2016 09:01
[2016-09-13 09:18] LABS: FIO2 ABG 32; HCO3 ABG 31 mmol/L (21-28); PCO2 ABG 67 mmHg (35-46); PH ABG 7.29 (7.35-7.45); PO2 ABG 116 mmHg (65-108); SAT O2 ABG 97 % (92-99)
[2016-09-13] MEDS: FUROSEMIDE 40 MG/4 ML VIAL. IVP SCH (09:54)
[2016-09-13] MEDS: methylPREDNISolone SOD SUCC PF 40 MG/ML VIAL. IV SCH ×2 (09:55→22:07)
[2016-09-13] MEDS: FLUCONAZOLE 200MG/100ML PREMIX 100 ML IV SCH (09:55)
--- NOTE | 2016-09-13 10:51 | PDOC ---
Infectious Disease Note Subjective Subjective No fever Not responsive verbally. Vital Sign Vital Signs Vital Signs Date Time Temp Pulse Resp B/P Pulse Ox O2 Delivery O2 Flow Rate FiO2 09/13/16 08:25 Nasal Cannula 3.0 09/13/16 07:00 97.9 94 20 132/72 91 97.9 Physical Exam PHYSICAL EXAM GENERAL: Alert, quiet HEENT: On BiPAP NECK: Supple LUNGS: Diminished aeration HEART: S1S2, no gallop, no murmur ABD: BS present, soft, NT : Verma EXT: .BLE pitting edema, no cyanosis. Left lateral hip incision. SKIN: No rash. LUE-PICC. clean m Labs Lab Laboratory Tests Test 09/12/16 12:15 09/12/16 14:40 09/13/16 05:00 09/13/16 07:00 Sodium Level 147mmol/L (136-145) 146mmol/L (136-145) Potassium Level 3.5mmol/L (3.5-5.1) 3.0mmol/L (3.5-5.1) Chloride Level 108mmol/L (98-107) 107mmol/L (98-107) Carbon Dioxide Level 33mmol/L (21-32) 33mmol/L (21-32) Anion Gap 6 (6-14) 6 (6-14) Blood Urea Nitrogen 40mg/dL (7-20) 37mg/dL (7-20) Creatinine 0.9mg/dL (0.6-1.0) 0.9mg/dL (0.6-1.0) Estimated GFR (Cockcroft-Gault) 62.3 62.3 Glucose Level 124mg/dL (70-99) 116mg/dL (70-99) Calcium Level 8.1mg/dL (8.5-10.1) 8.2mg/dL (8.5-10.1) Phosphorus Level 3.8mg/dL (2.6-4.7) 2.9mg/dL (2.6-4.7) Magnesium Level 2.1mg/dL (1.8-2.4) Albumin 2.3g/dL (3.4-5.0) 2.4g/dL (3.4-5.0) O2 Saturation 96% (92-99) 97% (92-99) Arterial Blood pH 7.28 (7.35-7.45) 7.29 (7.35-7.45) Arterial Blood pCO2 at Patient Temp 62mmHg (35-46) 67mmHg (35-46) Arterial Blood pO2 at Patient Temp 98mmHg (65-108) 116mmHg (65-108) Arterial Blood HCO3 28mmol/L (21-28) 31mmol/L (21-28) Arterial Blood Base Excess 1mmol/L (-3-3) 3mmol/L (-3-3) FiO2 2.5 lpm nc 32 Micro 09/11. BLOOD CULTURE Preliminary NO GROWTH AFTER 1 DAY Objective Assessment Fever - better Leukocytosis, trending down Encephalopathy -persists Hypernatremia - better GI bleed/Erosive gastritis & duodenal ulcers. s/p cauterization, 09/04 s/p PRBCs and emergent arteriogram-embolization w/ coiling 09/05 Anemia. s/p PRBCs times 3 Lactic acidosis likely sec to GI bleed and hypoperfusion, infection possible, less likely Minor drainage at Left hip surgery site Respiratory insufficiency on BiPAP I Plan Plan of Care Cont Zyvox, cefepime, Flagyl & Fluconazole supportive care Poor overall prognosis Attending Co-Sign The patient was seen and interviewed as well as examined at the bedside. The chart was reviewed. The case was discussed. Agree with the plan of care. SALMA LEYVA APRN Sep 13, 2016 10:51 LETITIA HUSTON MD Sep 13, 2016 14:55
[2016-09-13 11:00] VITALS: BP 136/64
[2016-09-13 15:00] VITALS: BP 134/80
--- NOTE | 2016-09-13 15:06 | PDOC ---
SUBJECTIVE Subjective has CPAP on, did not pass swallow test, high risk for aspiration OBJECTIVE Vital Signs Vital Signs Date Time Temp Pulse Resp B/P Pulse Ox O2 Delivery O2 Flow Rate FiO2 09/13/16 11:51 92 BiPAP/CPAP 09/13/16 11:00 97.5 94 20 136/64 90 Nasal Cannula 3.0 97.5 09/13/16 09:30 94 BiPAP/CPAP 09/13/16 08:25 Nasal Cannula 3.0 09/13/16 07:00 97.9 94 20 132/72 91 Nasal Cannula 3.0 97.9 09/13/16 03:00 98.0 98 18 118/67 100 Nasal Cannula 3.0 98.0 09/12/16 23:00 97.7 80 18 95/56 95 BiPAP/CPAP 97.7 09/12/16 20:15 Nasal Cannula 3.0 09/12/16 19:00 97.3 86 18 112/64 99 Nasal Cannula 4.0 97.3 I & O Intake and Output 09/13/16 07:00 Intake Total 1344 ml Output Total 5575 ml Balance -4231 ml IV Total 1344 ml Output Urine Total 5575 ml PHYSICAL EXAM Physical Exam no change ASSESSMENT/PLAN Assessment/Plan 1. Acute on chronic respiratory failure, multifactorial. on BiPAP/CPAP 2. Metabolic toxic encephalopathy. 3. Renal insufficiency. 4. Recent gastrointestinal bleed, HB stable 5. Status post emergent arteriogram with embolization on 09/05/2016. 6. Lactic acidosis improved 7- hypokalemia has standing order for K+ supplement prognosis guarded , Dr Ochoa will resume care in AM Problems: COMMENT Lab Laboratory Tests Test 09/13/16 05:00 09/13/16 07:00 09/13/16 08:40 Sodium Level 146mmol/L (136-145) Potassium Level 3.0mmol/L (3.5-5.1) Chloride Level 107mmol/L (98-107) Carbon Dioxide Level 33mmol/L (21-32) Anion Gap 6 (6-14) Blood Urea Nitrogen 37mg/dL (7-20) Creatinine 0.9mg/dL (0.6-1.0) Estimated GFR (Cockcroft-Gault) 62.3 Glucose Level 116mg/dL (70-99) Calcium Level 8.2mg/dL (8.5-10.1) Phosphorus Level 2.9mg/dL (2.6-4.7) Albumin 2.4g/dL (3.4-5.0) O2 Saturation 97% (92-99) Arterial Blood pH 7.29 (7.35-7.45) Arterial Blood pCO2 at Patient Temp 67mmHg (35-46) Arterial Blood pO2 at Patient Temp 116mmHg (65-108) Arterial Blood HCO3 31mmol/L (21-28) Arterial Blood Base Excess 3mmol/L (-3-3) FiO2 32 Clostridium difficile Toxin (PCR) Negative (Negative) NATHANAEL MCPHERSON MD Sep 13, 2016 15:06
--- NOTE | 2016-09-13 17:42 | PDOC ---
Provider Note Provider Note RENAL F/U : ELVIS. Subjective No active c/o reported. On Bipap. Vitals: Stable. Afebrile. ROS : No new c/o or issues. General: No distreess. Awake. HEENT: Neck supple. No JVD. Lungs: Decreased bases.No rales. Cardiovascular: S1, S2 Abdomen: Soft, Non-tender, Other (no mass) Extremities: Trace edema Skin: Warm Labs, I/Os, meds : reviewed. A/P : ARF HYPERNATREMIA: Watch. Stable. Free water needed. CKD ACUTE RESP FAILURE PROT MAYTE MALNUTRITION. SOBIA LEAL MD Sep 13, 2016 17:42
[2016-09-13 19:00] VITALS: BP 156/75
[2016-09-13] MEDS: AA 3%/ELECTROLYTE-TPN SOLN/GLY 1,000 ML IV SCH (22:07)
[2016-09-13 23:00] VITALS: BP 140/87
[2016-09-14 03:00] VITALS: BP 143/88
[2016-09-14] MEDS: CEFEPIME HCL 1 GM in IV DEXTROSE 5% 100 ML IV SCH ×3 (05:28→21:45)
[2016-09-14] MEDS: METRONIDAZOLE 500mg PREMIX 100 ML IV SCH ×3 (05:28→22:51)
[2016-09-14 07:00] VITALS: BP 158/85
[2016-09-14] MEDS: FLUCONAZOLE 200MG/100ML PREMIX 100 ML IV SCH (09:00)
--- NOTE | 2016-09-14 09:07 | PDOC ---
Infectious Disease Note Subjective Subjective on bipap ROS ROS no n/v/d/pain Vital Sign Vital Signs Vital Signs Date Time Temp Pulse Resp B/P Pulse Ox O2 Delivery O2 Flow Rate FiO2 09/14/16 07:00 98.1 91 24 158/85 95 Nasal Cannula 3.0 98.1 Physical Exam PHYSICAL EXAM GENERAL: , Alert, on bipap HEENT: PERRL, OC/OP NECK: Supple, no JVD, no LN LUNGS: Clear HEART: S1S2, no gallop, no murmur ABD: Soft, NT, no organomegaly, no rebound EXT: No edema, no cyanosis LINING CLOSER: Alert, oriented x 3, no focal neurologic deficit SKIN: No rash IV: ok Objective Assessment Fever - better Leukocytosis, trending down Encephalopathy -persists Hypernatremia - better GI bleed/Erosive gastritis & duodenal ulcers. s/p cauterization, 09/04 s/p PRBCs and emergent arteriogram-embolization w/ coiling 09/05 Anemia. s/p PRBCs times 3 Lactic acidosis likely sec to GI bleed and hypoperfusion, infection possible, less likely Minor drainage at Left hip surgery site Respiratory insufficiency on BiPAP Plan Plan of Care d/c Zyvox, Fluconazole cont cefepime and flagyl supportive care Poor overall prognosis LETITIA HUSTON MD Sep 14, 2016 09:07
[2016-09-14] MEDS: AA 3%/ELECTROLYTE-TPN SOLN/GLY 1,000 ML IV SCH ×2 (09:52→22:00)
[2016-09-14] MEDS: FUROSEMIDE 40 MG/4 ML VIAL. IVP SCH (09:54)
[2016-09-14] MEDS: methylPREDNISolone SOD SUCC PF 40 MG/ML VIAL. IV SCH ×2 (09:54→21:44)
[2016-09-14] MEDS: PANTOPRAZOLE IV PUSH 40 MG VIAL. IVP SCH (09:54)
[2016-09-14 11:00] VITALS: BP 160/81
--- NOTE | 2016-09-14 11:02 | PDOC ---
Renal-Progress Notes Subjective Notes Notes NONE, ON BIPAP History of Present Illness Hx of present illness NO CHANGE Vitals Vitals Vital Signs Date Time Temp Pulse Resp B/P Pulse Ox O2 Delivery O2 Flow Rate FiO2 09/14/16 07:50 Bi-pap 09/14/16 07:00 98.1 91 24 158/85 95 3.0 98.1 Weight Weight [ ] I.O. Intake and Output Intake and Output 09/14/16 07:00 Intake Total 920 ml Output Total 3175 ml Balance -2255 ml Intake Oral 120 ml IV Total 800 ml Output Urine Total 3175 ml # Bowel Movements 1 Micro Micro Microbiology 09/11/16 Blood Culture - Preliminary, Resulted NO GROWTH AFTER 2 DAYS Review of Systems Constitutional: yes: no symptom reported Physical Exam General Appearance: no apparent distress Skin: warm Respiratory: decreased breath sounds Heart: S1S2 Abdomen: GT edema Extremities: pulses present Neurology: alert Assessment Assessment IMP HYPOKALEMIA HYPERNATREMIA LEUCOCYTOSIS GI BLEEDING S/P PRBC AND COILING DARYL - BETTER RESP FAILURE PLAN ON BIPAP REPLACE K CONT TPN SUPPORTIVE CARE ELENO SAM MD Sep 14, 2016 11:02
[2016-09-14] MEDS: POTASSIUM CHLORIDE 10MEQ 100 ML IV SCH ×4 (12:13→17:44)
--- NOTE | 2016-09-14 14:19 | PDOC ---
PULMONARY PROGRESS NOTES Subjective pt on bipap not very responsive Vitals Vital Signs Date Time Temp Pulse Resp B/P Pulse Ox O2 Delivery O2 Flow Rate FiO2 09/14/16 11:07 97 BiPAP/CPAP 09/14/16 11:00 98.4 87 20 160/81 3.0 98.4 General: Alert, Lethargic HEENT: Other (nc at perrl nose throat clear. ) Lungs: Wheezing, Crackles Cardiovascular: S1, S2 Abdomen: Soft, Non-tender Extremities: No Edema Skin: Warm Labs Laboratory Tests Test 09/12/16 14:40 09/13/16 05:00 09/13/16 07:00 09/13/16 08:40 O2 Saturation 96% (92-99) 97% (92-99) Arterial Blood pH 7.28 (7.35-7.45) 7.29 (7.35-7.45) Arterial Blood pCO2 at Patient Temp 62mmHg (35-46) 67mmHg (35-46) Arterial Blood pO2 at Patient Temp 98mmHg (65-108) 116mmHg (65-108) Arterial Blood HCO3 28mmol/L (21-28) 31mmol/L (21-28) Arterial Blood Base Excess 1mmol/L (-3-3) 3mmol/L (-3-3) FiO2 2.5 lpm nc 32 Sodium Level 146mmol/L (136-145) Potassium Level 3.0mmol/L (3.5-5.1) Chloride Level 107mmol/L (98-107) Carbon Dioxide Level 33mmol/L (21-32) Anion Gap 6 (6-14) Blood Urea Nitrogen 37mg/dL (7-20) Creatinine 0.9mg/dL (0.6-1.0) Estimated GFR (Cockcroft-Gault) 62.3 Glucose Level 116mg/dL (70-99) Calcium Level 8.2mg/dL (8.5-10.1) Phosphorus Level 2.9mg/dL (2.6-4.7) Albumin 2.4g/dL (3.4-5.0) Clostridium difficile Toxin (PCR) Negative (Negative) Medications Active Scripts Medications Dose Route/Sig Days Date Category Dose Instructions Duoneb 0.5-3(2.5) Mg/3 Ml (Albuterol/Ipratropium) 3 Ml Ampul.neb 3 Ml NEB QID PRN 08/28/16 Reported Xanax (Alprazolam) 0.5 Mg Tablet 1 Tab PO Q8HRS PRN 08/28/16 Reported Senna-Docusate Sodium Tablet (Sennosides/Docusate Sodium) 1 Each Tablet 1 Each PO DAILY 08/28/16 Reported Coumadin (Warfarin Sodium) 2.5 Mg Tablet 1 Tab PO DAILY 08/28/[address] Ochoa Polyethylene Glycol 3350 255 Gm Powder 17 Gm PO DAILY PRN 08/25/16 Reported Hydrocodone-Apap 5-325 (Hydrocodone Bit/Acetaminophen) 1 Each Tablet 2 Tab PO PRN Q4HRS PRN 08/17/16 Rx Proair Hfa (Albuterol Sulfate) 8.5 Gm Hfa.aer.ad 08/13/16 Reported Valsartan-Hctz 160-12.5 Mg Tab (Valsartan/Hydrochlorothiazide) 1 Each Tablet 1 Each PO DAILY 08/12/16 Reported Combivent Respimat Inhal (Ipratropium/Albuterol Sulfate) 4 Gm Aer.w.adap 2 Inh IH QID 08/12/16 Reported Albuterol Sulfate Hfa Inhaler (Albuterol Sulfate) 8.5 Gm Hfa.aer.ad 8.5 Gm IH PRN 08/28/13 Reported Comments cxr reviewed, no infilt Impression . 1. Acute on chronic respiratory failure, multifactorial. worse 09/10. Has been on BIPAP since 09/10 2. Metabolic toxic encephalopathy. 3. Renal insufficiency. 4. Recent gastrointestinal bleed, status post cauterization on 09/04/2016 for duodenal ulcers. 5. Status post emergent arteriogram with embolization on 09/05/2016. 6. Lactic acidosis secondary to hypoperfusion and GI bleed along with infection. improved. 7. New fever, resolved 8. acute bronchospasm Plan . overall prognosis is poor doubt pt will survive this admission continue BIPAP I would opt for comfort care d/w GINO Ruiz MD Sep 14, 2016 14:19
[2016-09-14 15:00] VITALS: BP 144/81
--- NOTE | 2016-09-14 15:32 | PDOC ---
Objective: Objective: No GI concerns per RN. Note [employer] eval. Vital Signs: Vital Signs Date Time Temp Pulse Resp B/P Pulse Ox O2 Delivery O2 Flow Rate FiO2 09/14/16 15:27 100 BiPAP/CPAP 09/14/16 11:00 98.4 87 20 160/81 3.0 98.4 PE: GEN: NAD LUNGS: BiPAP HEART: S1S2 ABD: S/ND/NT NEURO/PSYCH: awake, non-verbal A/P: Duodenal ulcer s/p endotherapy, s/p IR embolization -Hgb improved/stable, melena resolved, on IV PPI Resp failure -requires BiPAP Dysphagia Encephalopathy -- No new GI recs. FELICITAS BEACH Sep 14, 2016 15:32
[2016-09-14 19:27] VITALS: BP 117/77
--- NOTE | 2016-09-14 21:03 | PDOC ---
GENERAL General: vss and afebrile. awakens and speaking gibberish this am. O>>I. K+ 3.0 and being replaced by renal. remains on bi-pap. chest same with decreased breath sounds and tachycardia same. help of consultants appreciated. very difficult situation as becoming stable at a much less than desirable existence. will transfer to [facility] when all think ready. Problems: VITAL SIGNS Vital Signs: Vital Signs Date Time Temp Pulse Resp B/P Pulse Ox O2 Delivery O2 Flow Rate FiO2 09/14/16 19:27 98.8 85 16 117/77 97 BiPAP/CPAP 98.8 09/14/16 15:00 3.0 I & O I & O Intake and Output 09/14/16 07:00 Intake Total 920 ml Output Total 3175 ml Balance -2255 ml Intake Oral 120 ml IV Total 800 ml Output Urine Total 3175 ml # Bowel Movements 1 ALLERGIES Allergies: Allergies Coded Allergies Type Severity Reaction Last Updated Verified amlodipine Adverse Reaction Intermediate Swelling 09/04/16 Yes MEDS Medications: Current Medications Medications (Trade) Dose Ordered Sig/Chrissie Start Time Stop Time Status Last Admin Dose Admin Acetaminophen (Acetaminophen Supp) 650 mg PRN Q6HRS PRN 09/12/16 16:15 Albumin Human 100 ml @ 100 mls/hr TID 09/05/16 15:00 09/07/16 08:51 DC 09/06/16 23:20 100 MLS/HR Amino Acids/ Electrolytes/ Dextrose (Clinimix E 4.25%-5% Solution) 1,000 ml @ 80 mls/hr [id number] 09/08/16 16:00 09/13/16 21:43 DC 09/12/16 20:56 80 MLS/HR Amino Acids/ Glycerin/ Electrolytes 1,000 ml @ 80 mls/hr [id number] 09/13/16 21:00 09/14/16 09:52 80 MLS/HR Cefepime HCl 1 gm/ Dextrose 100 ml @ 200 mls/hr Q8HRS 09/08/16 14:00 09/14/16 14:52 200 MLS/HR Cefepime HCl 1 gm/ Sodium Chloride 50 ml @ 100 mls/hr Q8HRS 09/08/16 14:00 09/08/16 14:00 DC Desmopressin Acetate (Ddavp) 1 mcg BID 09/05/16 15:00 09/06/16 10:13 DC 09/05/16 20:51 1 MCG Dextrose 1,000 ml @ 100 mls/hr Q10H 09/06/16 20:00 09/09/16 10:50 DC 09/09/16 07:17 100 MLS/HR Diphenhydramine HCl (Benadryl) 50 mg STK-MED ONCE 09/06/16 01:02 09/06/16 01:03 DC Diphenhydramine HCl 25 mg 25 mg 1X ONCE 09/06/16 01:30 09/06/16 01:31 DC 09/06/16 01:25 25 MG Dopamine HCl/ Dextrose 250 ml @ 9.952 mls/ hr 1X ONCE 09/06/16 01:15 09/07/16 02:22 DC 09/06/16 01:22 9.952 MLS/HR Epinephrine HCl (Adrenalin) 1 mg STK-MED ONCE 09/04/16 12:08 09/04/16 14:25 DC 09/04/16 12:08 0.2 MG Epinephrine HCl (Epinephrine Syringe) 1 mg STK-MED ONCE 09/04/16 12:05 09/04/16 12:06 DC Epinephrine HCl 1 mg 1 mg STK-MED ONCE 09/04/16 12:11 09/04/16 14:25 DC 09/04/16 12:11 0.4 MG Fentanyl Citrate (Fentanyl 2ml Vial) 25 mcg 1X ONCE 09/06/16 01:30 09/06/16 01:31 DC 09/06/16 01:22 25 MCG Fluconazole/ Sodium Chloride (Diflucan 200mg/ 100ml Premix) 100 ml @ 100 mls/hr Q24H 09/08/16 09:00 09/14/16 09:08 DC 09/13/16 09:55 100 MLS/HR Furosemide 40 mg 40 mg DAILY 09/11/16 14:30 09/14/16 09:54 40 MG Gelatin (Gelfoam Size 12-7mm) 1 each STK-MED ONCE 09/05/16 23:35 09/05/16 23:36 DC Heparin Sodium/ Sodium Chloride 1,000 unit 1X ONCE 09/05/16 23:30 09/05/16 23:31 DC 09/05/16 23:46 1,000 UNIT Heparin Sodium/ Sodium Chloride 60 unit 60 unit 1X ONCE 09/04/16 08:45 09/04/16 08:46 DC Hydralazine HCl 10 mg 10 mg PRN Q6HRS PRN 09/09/16 10:45 Iohexol (Omnipaque 300 Mg/ml) 150 ml 1X ONCE 09/06/16 00:30 09/06/16 00:31 DC 09/06/16 01:08 150 ML Lidocaine HCl (Lidocaine Pf 2% Vial) 5 ml STK-MED ONCE 09/04/16 10:58 09/04/16 10:59 DC Lidocaine HCl 100 mg 100 mg STK-MED ONCE 09/06/16 03:32 09/06/16 03:33 DC Lidocaine/Sodium Bicarbonate (Buffered Lidocaine 1%) 20 ml 1X ONCE 09/05/16 23:30 09/05/16 23:31 DC 09/05/16 23:46 20 ML Lidocaine/Sodium Bicarbonate 20 ml 20 ml STK-MED ONCE 09/04/16 08:40 09/04/16 08:41 DC Linezolid 300 ml @ 300 mls/hr Q12HR 09/11/16 21:00 09/14/16 09:08 DC 09/13/16 22:07 300 MLS/HR Magnesium Sulfate/ Dextrose 50 ml @ 25 mls/hr PRN DAILY PRN 09/06/16 06:30 Methylprednisolone Sodium Succinate 40 mg 40 mg Q12HR 09/13/16 09:00 09/14/16 09:54 40 MG Metronidazole (FLAGYL 500Mmg PREMIX) 100 ml @ 100 mls/hr Q8HRS 09/11/16 15:00 09/14/16 15:56 100 MLS/HR Midazolam HCl (Versed) 2 mg 1X ONCE 09/06/16 00:30 09/06/16 00:31 DC 09/06/16 01:08 2 MG Morphine Sulfate 2 mg PRN Q4HRS PRN 09/05/16 10:15 09/08/16 11:45 DC 09/05/16 16:31 2 MG Naloxone HCl (Narcan) 0.4 mg STK-MED ONCE 09/05/16 23:54 09/05/16 23:55 DC Norepinephrine Bitartrate (Levophed Vial) 4 mg STK-MED ONCE 09/06/16 00:43 09/06/16 00:44 DC Norepinephrine Bitartrate 8 mg/ Dextrose 258 ml @ 0 mls/hr CONT PRN 09/06/16 12:30 09/11/16 14:22 DC 09/06/16 16:32 9.4 MLS/HR Norepinephrine Bitartrate 8 mg/ Sodium Chloride 258 ml @ 0 mls/hr 1X ONCE 09/06/16 01:30 09/06/16 01:31 DC 09/06/16 01:26 58.05 MLS/HR Norepinephrine Bitartrate/Sodium Chloride (Levophed Vial/ Iv Sodium Chloride 0.9% 250ml) 258 ml @ 0 mls/hr CONT PRN 09/04/16 03:30 09/06/16 12:24 DC 09/06/16 01:24 58.05 MLS/HR Pantoprazole Sodium (Protonix Vial) 40 mg 1X ONCE 09/04/16 04:00 09/04/16 04:01 DC 09/04/16 04:06 40 MG Pantoprazole Sodium 40 mg 40 mg DAILYAC 09/10/16 07:30 09/14/16 09:54 40 MG Pantoprazole Sodium 80 mg/ Sodium Chloride 100 ml @ 10 mls/hr Q10H 09/04/16 08:45 UNV Pantoprazole Sodium/Sodium Chloride (Protonix Iv/Iv Sodium Chloride 0.9% 100ml) 100 ml @ 10 mls/hr Q10H 09/04/16 08:45 09/09/16 12:27 DC 09/09/16 08:13 10 MLS/HR Phenylephrine HCl 1 mg 1 mg STK-MED ONCE 09/05/16 12:00 09/07/16 08:22 DC Phenylephrine HCl/ Sodium Chloride (Miky-Synephrine Inj/Iv Sodium Chloride 0.9% 250ml) 252 ml @ 0 mls/hr CONT PRN 09/06/16 08:30 09/13/16 13:48 DC Phytonadione 10 mg/Sodium Chloride 51 ml @ 102 mls/hr 1X ONCE 09/06/16 04:30 09/06/16 08:49 DC Phytonadione 10 mg 10 mg 1X ONCE 09/06/16 09:30 09/06/16 09:31 DC 09/06/16 09:43 10 MG Piperacillin Sod/ Tazobactam Sod 3.375 gm/Sodium Chloride 50 ml @ 100 mls/hr Q6HRS 09/03/16 20:00 09/08/16 08:31 DC 09/08/16 05:26 100 MLS/HR Potassium Phosphate/Sodium Chloride (Potassium Phosphate/Iv Sodium Chloride 0.9% 250ml) 254.5333 ml @ 127.... Q2H 09/09/16 11:00 09/09/16 13:20 DC Potassium Chloride (KCl Premix 10meq) 100 ml @ 100 mls/hr Q1H 09/14/16 12:00 09/14/16 15:59 DC 09/14/16 15:00 100 MLS/HR Potassium Chloride (KCl Premix 20meq) 50 ml @ 50 mls/hr PRN Q2HR PRN 09/05/16 14:30 09/09/16 07:17 50 MLS/HR Propofol (Diprivan) 40 ml @ As Directed STK-MED ONCE 09/04/16 10:58 09/04/16 10:59 DC Sodium Bicarbonate 100 meq 100 meq 1X ONCE 09/08/16 14:45 09/09/16 10:50 DC 09/08/16 14:37 100 MEQ Sodium Bicarbonate 50 meq 50 meq Q6HRS 09/05/16 18:00 09/07/16 08:51 DC 09/07/16 06:10 50 MEQ Sodium Bicarbonate/ Sodium Chloride (Iv Sodium Chloride 0.45%) 1,050 ml @ 125 mls/hr Q8H24M 09/05/16 09:30 09/05/16 14:28 DC 09/05/16 09:06 125 MLS/HR Sodium Chloride 500 ml @ 500 mls/hr PRN QID PRN 09/06/16 06:30 09/09/16 10:50 DC Sodium Phosphate 20 mmol/Dextrose 256.6667 ml @ 64.167 m... 1X ONCE 09/09/16 14:00 09/09/16 17:59 DC 09/09/16 15:24 64.167 MLS/HR Vancomycin HCl 1 each 1X ONCE 09/10/16 08:30 09/10/16 08:31 DC 09/10/16 08:30 1 EACH Vancomycin HCl 1.5 gm/Dextrose 500 ml @ 250 mls/hr 1X ONCE 09/08/16 09:00 09/08/16 10:59 DC 09/08/16 09:29 250 MLS/HR Vancomycin HCl 1.5 gm/Sodium Chloride 500 ml @ 250 mls/hr 1X ONCE 09/08/16 09:00 09/08/16 09:00 DC Vancomycin HCl 1 each 1 each PRN DAILY PRN 09/08/16 08:00 09/11/16 14:20 DC 09/10/16 09:49 1 EACH Vancomycin HCl 1 gm/Sodium Chloride 250 ml @ 250 mls/hr 1X ONCE 09/03/16 20:00 09/03/16 20:59 DC 09/03/16 20:08 250 MLS/HR Vancomycin HCl/ Dextrose 250 ml @ 250 mls/hr Q24H 09/09/16 09:00 09/10/16 09:46 DC 09/09/16 09:52 250 MLS/HR Vancomycin HCl/ Sodium Chloride (Iv Sodium Chloride 0.9% 250ml) 250 ml @ 167 mls/hr Q24H 09/10/16 10:00 09/11/16 14:20 DC 09/11/16 10:31 167 MLS/HR Vasopressin 40 unit/Dextrose 102 ml @ 6 mls/hr CONT PRN 09/06/16 10:00 09/09/16 10:50 DC 09/07/16 06:00 6 MLS/HR JAMIN EVANS MD Sep 14, 2016 21:02
[2016-09-14 23:04] VITALS: BP 120/84
[2016-09-15 03:07] VITALS: BP 128/80
[2016-09-15 04:18] LABS: CALCIUM 7.7 mg/dL (8.5-10.1); CREATININE 1.2 mg/dL (0.6-1.0); GFR 44.7; POTASSIUM 3.4 mmol/L (3.5-5.1)
[2016-09-15] MEDS: METRONIDAZOLE 500mg PREMIX 100 ML IV SCH ×2 (06:08→14:47)
[2016-09-15] MEDS: CEFEPIME HCL 1 GM in IV DEXTROSE 5% 100 ML IV SCH ×2 (06:08→13:46)
[2016-09-15 07:00] VITALS: BP 139/105
--- NOTE | 2016-09-15 09:35 | PDOC ---
Infectious Disease Note Subjective Subjective on bipap awake ROS ROS no n/v/d/pain Vital Sign Vital Signs Vital Signs Date Time Temp Pulse Resp B/P Pulse Ox O2 Delivery O2 Flow Rate FiO2 09/15/16 09:13 99 BiPAP/CPAP 09/15/16 07:00 97.9 72 20 139/105 3.0 97.9 Physical Exam PHYSICAL EXAM GENERAL: Alert, on bipap HEENT: PERRL, OC/OP NECK: Supple, no JVD, no LN LUNGS: Clear HEART: S1S2, no gallop, no murmur ABD: Soft, NT, no organomegaly, no rebound EXT: No edema, no cyanosis HAT BRUSHER MACHINE: Alert, oriented x 3, no focal neurologic deficit SKIN: No rash IV: ok Labs Lab Laboratory Tests Test 09/15/16 04:00 Sodium Level 143mmol/L (136-145) Potassium Level 3.4mmol/L (3.5-5.1) Chloride Level 103mmol/L (98-107) Carbon Dioxide Level 40mmol/L (21-32) Anion Gap 0 (6-14) Blood Urea Nitrogen 37mg/dL (7-20) Creatinine 1.2mg/dL (0.6-1.0) Estimated GFR (Cockcroft-Gault) 44.7 Glucose Level 142mg/dL (70-99) Calcium Level 7.7mg/dL (8.5-10.1) Objective Assessment Fever - better Leukocytosis, trending down Encephalopathy -persists Hypernatremia - better GI bleed/Erosive gastritis & duodenal ulcers. s/p cauterization, 09/04 s/p PRBCs and emergent arteriogram-embolization w/ coiling 09/05 Anemia. s/p PRBCs times 3 Lactic acidosis likely sec to GI bleed and hypoperfusion, infection possible, less likely Minor drainage at Left hip surgery site Respiratory insufficiency on BiPAP Plan Plan of Care cont cefepime and flagyl supportive care,, trach and peg vs comfort care Poor overall prognosis LETITIA HUSTON MD Sep 15, 2016 09:35
[2016-09-15] MEDS: AA 3%/ELECTROLYTE-TPN SOLN/GLY 1,000 ML IV SCH (10:03)
[2016-09-15] MEDS: PANTOPRAZOLE IV PUSH 40 MG VIAL. IVP SCH (10:07)
[2016-09-15] MEDS: FUROSEMIDE 40 MG/4 ML VIAL. IVP SCH (10:07)
[2016-09-15] MEDS: methylPREDNISolone SOD SUCC PF 40 MG/ML VIAL. IV SCH (10:07)
[2016-09-15 11:00] VITALS: BP 147/89
--- NOTE | 2016-09-15 11:12 | PDOC ---
Renal-Progress Notes Subjective Notes Notes NONE History of Present Illness Hx of present illness NO CHANGE Vitals Vitals Vital Signs Date Time Temp Pulse Resp B/P Pulse Ox O2 Delivery O2 Flow Rate FiO2 09/15/16 09:13 99 BiPAP/CPAP 09/15/16 07:00 97.9 72 20 139/105 3.0 97.9 Weight Weight [ ] I.O. Intake and Output Intake and Output 09/15/16 07:00 Intake Total 0 ml Output Total 2050 ml Balance -2050 ml Intake Oral 0 ml Output Urine Total 2050 ml Labs Labs Laboratory Tests Test 09/15/16 04:00 Sodium Level 143mmol/L (136-145) Potassium Level 3.4mmol/L (3.5-5.1) Chloride Level 103mmol/L (98-107) Carbon Dioxide Level 40mmol/L (21-32) Anion Gap 0 (6-14) Blood Urea Nitrogen 37mg/dL (7-20) Creatinine 1.2mg/dL (0.6-1.0) Estimated GFR (Cockcroft-Gault) 44.7 Glucose Level 142mg/dL (70-99) Calcium Level 7.7mg/dL (8.5-10.1) Micro Micro Microbiology 09/11/16 Blood Culture - Preliminary, Resulted NO GROWTH AFTER 3 DAYS Review of Systems Constitutional: yes: no symptom reported Physical Exam General Appearance: no apparent distress Skin: warm Respiratory: decreased breath sounds Heart: S1S2 Abdomen: GT edema Extremities: pulses present Neurology: alert Assessment Assessment IMP HYPOKALEMIA HYPERNATREMIA-BETTER LEUCOCYTOSIS GI BLEEDING S/P PRBC AND COILING DARYL - BETTER - CR DOWN TO 1.2 RESP FAILURE PLAN ON BIPAP REPLACE K CONT LASIX CONT PPN SUPPORTIVE CARE ELENO SAM MD Sep 15, 2016 11:12
[2016-09-15] MEDS ORDERED: POTASSIUM CHLORIDE 10MEQ 100 ML IV SCH (13:00)
--- NOTE | 2016-09-15 14:38 | PDOC ---
Objective: Objective: Per RN - discussion re: transfer to [facility]. Vital Signs: Vital Signs Date Time Temp Pulse Resp B/P Pulse Ox O2 Delivery O2 Flow Rate FiO2 09/15/16 11:06 99 BiPAP/CPAP 09/15/16 11:00 98.4 88 20 147/89 3.0 98.4 PE: GEN: NAD LUNGS: BiPAP HEART: tachycardic ABD: S/ND, BS+ NEURO/PSYCH: awake A/P: Duodenal ulcer s/p endotherapy, s/p IR embolization -Hgb improved/stable, melena resolved, on IV PPI Resp failure, dysphagia, encephalopathy -requires BiPAP -- No new GI recs. Disposition plans (?transfer to [facility]) in process. FELICITAS BEACH Sep 15, 2016 14:38
[2016-09-15 15:00] VITALS: BP 148/85
--- NOTE | 2016-09-15 16:46 | PDOC ---
GENERAL General: vss and afebrile. awakens and knows who I am this am. Chest clear with diminished breath sounds and baseline tachycardia. still on bi-pap. CO2 increased to 40 on bmp this am. K+ up to 3.4. continue supportive care. help all consultants appreciated. Problems: VITAL SIGNS Vital Signs: Vital Signs Date Time Temp Pulse Resp B/P Pulse Ox O2 Delivery O2 Flow Rate FiO2 09/15/16 15:21 100 BiPAP/CPAP 09/15/16 11:00 98.4 88 20 147/89 3.0 98.4 I & O I & O Intake and Output 09/15/16 07:00 Intake Total 0 ml Output Total 2050 ml Balance -2050 ml Intake Oral 0 ml Output Urine Total 2050 ml ALLERGIES Allergies: Allergies Coded Allergies Type Severity Reaction Last Updated Verified amlodipine Adverse Reaction Intermediate Swelling 09/04/16 Yes MEDS Medications: Current Medications Medications (Trade) Dose Ordered Sig/Chrissie Start Time Stop Time Status Last Admin Dose Admin Acetaminophen (Acetaminophen Supp) 650 mg PRN Q6HRS PRN 09/12/16 16:15 Albumin Human 100 ml @ 100 mls/hr TID 09/05/16 15:00 09/07/16 08:51 DC 09/06/16 23:20 100 MLS/HR Amino Acids/ Electrolytes/ Dextrose (Clinimix E 4.25%-5% Solution) 1,000 ml @ 80 mls/hr [id number] 09/08/16 16:00 09/13/16 21:43 DC 09/12/16 20:56 80 MLS/HR Amino Acids/ Glycerin/ Electrolytes 1,000 ml @ 80 mls/hr [id number] 09/13/16 21:00 09/14/16 09:52 80 MLS/HR Cefepime HCl 1 gm/ Dextrose 100 ml @ 200 mls/hr Q8HRS 09/08/16 14:00 09/15/16 13:46 200 MLS/HR Cefepime HCl 1 gm/ Sodium Chloride 50 ml @ 100 mls/hr Q8HRS 09/08/16 14:00 09/08/16 14:00 DC Desmopressin Acetate (Ddavp) 1 mcg BID 09/05/16 15:00 09/06/16 10:13 DC 09/05/16 20:51 1 MCG Dextrose 1,000 ml @ 100 mls/hr Q10H 09/06/16 20:00 09/09/16 10:50 DC 09/09/16 07:17 100 MLS/HR Diphenhydramine HCl (Benadryl) 50 mg STK-MED ONCE 09/06/16 01:02 09/06/16 01:03 DC Diphenhydramine HCl 25 mg 25 mg 1X ONCE 09/06/16 01:30 09/06/16 01:31 DC 09/06/16 01:25 25 MG Dopamine HCl/ Dextrose 250 ml @ 9.952 mls/ hr 1X ONCE 09/06/16 01:15 09/07/16 02:22 DC 09/06/16 01:22 9.952 MLS/HR Epinephrine HCl (Adrenalin) 1 mg STK-MED ONCE 09/04/16 12:08 09/04/16 14:25 DC 09/04/16 12:08 0.2 MG Epinephrine HCl (Epinephrine Syringe) 1 mg STK-MED ONCE 09/04/16 12:05 09/04/16 12:06 DC Epinephrine HCl 1 mg 1 mg STK-MED ONCE 09/04/16 12:11 09/04/16 14:25 DC 09/04/16 12:11 0.4 MG Fentanyl Citrate (Fentanyl 2ml Vial) 25 mcg 1X ONCE 09/06/16 01:30 09/06/16 01:31 DC 09/06/16 01:22 25 MCG Fluconazole/ Sodium Chloride (Diflucan 200mg/ 100ml Premix) 100 ml @ 100 mls/hr Q24H 09/08/16 09:00 09/14/16 09:08 DC 09/13/16 09:55 100 MLS/HR Furosemide 40 mg 40 mg DAILY 09/11/16 14:30 09/15/16 10:07 40 MG Gelatin (Gelfoam Size 12-7mm) 1 each STK-MED ONCE 09/05/16 23:35 09/05/16 23:36 DC Heparin Sodium/ Sodium Chloride 1,000 unit 1X ONCE 09/05/16 23:30 09/05/16 23:31 DC 09/05/16 23:46 1,000 UNIT Heparin Sodium/ Sodium Chloride 60 unit 60 unit 1X ONCE 09/04/16 08:45 09/04/16 08:46 DC Hydralazine HCl 10 mg 10 mg PRN Q6HRS PRN 09/09/16 10:45 Iohexol (Omnipaque 300 Mg/ml) 150 ml 1X ONCE 09/06/16 00:30 09/06/16 00:31 DC 09/06/16 01:08 150 ML Lidocaine HCl (Lidocaine Pf 2% Vial) 5 ml STK-MED ONCE 09/04/16 10:58 09/04/16 10:59 DC Lidocaine HCl 100 mg 100 mg STK-MED ONCE 09/06/16 03:32 09/06/16 03:33 DC Lidocaine/Sodium Bicarbonate (Buffered Lidocaine 1%) 20 ml 1X ONCE 09/05/16 23:30 09/05/16 23:31 DC 09/05/16 23:46 20 ML Lidocaine/Sodium Bicarbonate 20 ml 20 ml STK-MED ONCE 09/04/16 08:40 09/04/16 08:41 DC Linezolid 300 ml @ 300 mls/hr Q12HR 09/11/16 21:00 09/14/16 09:08 DC 09/13/16 22:07 300 MLS/HR Magnesium Sulfate/ Dextrose 50 ml @ 25 mls/hr PRN DAILY PRN 09/06/16 06:30 Methylprednisolone Sodium Succinate 40 mg 40 mg Q12HR 09/13/16 09:00 09/15/16 10:07 40 MG Metronidazole (FLAGYL 500Mmg PREMIX) 100 ml @ 100 mls/hr Q8HRS 09/11/16 15:00 09/15/16 14:47 100 MLS/HR Midazolam HCl (Versed) 2 mg 1X ONCE 09/06/16 00:30 09/06/16 00:31 DC 09/06/16 01:08 2 MG Morphine Sulfate 2 mg PRN Q4HRS PRN 09/05/16 10:15 09/08/16 11:45 DC 09/05/16 16:31 2 MG Naloxone HCl (Narcan) 0.4 mg STK-MED ONCE 09/05/16 23:54 09/05/16 23:55 DC Norepinephrine Bitartrate (Levophed Vial) 4 mg STK-MED ONCE 09/06/16 00:43 09/06/16 00:44 DC Norepinephrine Bitartrate 8 mg/ Dextrose 258 ml @ 0 mls/hr CONT PRN 09/06/16 12:30 09/11/16 14:22 DC 09/06/16 16:32 9.4 MLS/HR Norepinephrine Bitartrate 8 mg/ Sodium Chloride 258 ml @ 0 mls/hr 1X ONCE 09/06/16 01:30 09/06/16 01:31 DC 09/06/16 01:26 58.05 MLS/HR Norepinephrine Bitartrate/Sodium Chloride (Levophed Vial/ Iv Sodium Chloride 0.9% 250ml) 258 ml @ 0 mls/hr CONT PRN 09/04/16 03:30 09/06/16 12:24 DC 09/06/16 01:24 58.05 MLS/HR Pantoprazole Sodium (Protonix Vial) 40 mg 1X ONCE 09/04/16 04:00 09/04/16 04:01 DC 09/04/16 04:06 40 MG Pantoprazole Sodium 40 mg 40 mg DAILYAC 09/10/16 07:30 09/15/16 10:07 40 MG Pantoprazole Sodium 80 mg/ Sodium Chloride 100 ml @ 10 mls/hr Q10H 09/04/16 08:45 UNV Pantoprazole Sodium/Sodium Chloride (Protonix Iv/Iv Sodium Chloride 0.9% 100ml) 100 ml @ 10 mls/hr Q10H 09/04/16 08:45 09/09/16 12:27 DC 09/09/16 08:13 10 MLS/HR Phenylephrine HCl 1 mg 1 mg STK-MED ONCE 09/05/16 12:00 09/07/16 08:22 DC Phenylephrine HCl/ Sodium Chloride (Miky-Synephrine Inj/Iv Sodium Chloride 0.9% 250ml) 252 ml @ 0 mls/hr CONT PRN 09/06/16 08:30 09/13/16 13:48 DC Phytonadione 10 mg/Sodium Chloride 51 ml @ 102 mls/hr 1X ONCE 09/06/16 04:30 09/06/16 08:49 DC Phytonadione 10 mg 10 mg 1X ONCE 09/06/16 09:30 09/06/16 09:31 DC 09/06/16 09:43 10 MG Piperacillin Sod/ Tazobactam Sod 3.375 gm/Sodium Chloride 50 ml @ 100 mls/hr Q6HRS 09/03/16 20:00 09/08/16 08:31 DC 09/08/16 05:26 100 MLS/HR Potassium Phosphate/Sodium Chloride (Potassium Phosphate/Iv Sodium Chloride 0.9% 250ml) 254.5333 ml @ 127.... Q2H 09/09/16 11:00 09/09/16 13:20 DC Potassium Chloride (KCl Premix 10meq) 100 ml @ 100 mls/hr Q1H 09/15/16 13:00 09/15/16 16:59 09/15/16 12:45 100 MLS/HR Potassium Chloride (KCl Premix 20meq) 50 ml @ 50 mls/hr PRN Q2HR PRN 09/05/16 14:30 09/09/16 07:17 50 MLS/HR Propofol (Diprivan) 40 ml @ As Directed STK-MED ONCE 09/04/16 10:58 09/04/16 10:59 DC Sodium Bicarbonate 100 meq 100 meq 1X ONCE 09/08/16 14:45 09/09/16 10:50 DC 09/08/16 14:37 100 MEQ Sodium Bicarbonate 50 meq 50 meq Q6HRS 09/05/16 18:00 09/07/16 08:51 DC 09/07/16 06:10 50 MEQ Sodium Bicarbonate/ Sodium Chloride (Iv Sodium Chloride 0.45%) 1,050 ml @ 125 mls/hr Q8H24M 09/05/16 09:30 09/05/16 14:28 DC 09/05/16 09:06 125 MLS/HR Sodium Chloride 500 ml @ 500 mls/hr PRN QID PRN 09/06/16 06:30 09/09/16 10:50 DC Sodium Phosphate 20 mmol/Dextrose 256.6667 ml @ 64.167 m... 1X ONCE 09/09/16 14:00 09/09/16 17:59 DC 09/09/16 15:24 64.167 MLS/HR Vancomycin HCl 1 each 1X ONCE 09/10/16 08:30 09/10/16 08:31 DC 09/10/16 08:30 1 EACH Vancomycin HCl 1.5 gm/Dextrose 500 ml @ 250 mls/hr 1X ONCE 09/08/16 09:00 09/08/16 10:59 DC 09/08/16 09:29 250 MLS/HR Vancomycin HCl 1.5 gm/Sodium Chloride 500 ml @ 250 mls/hr 1X ONCE 09/08/16 09:00 09/08/16 09:00 DC Vancomycin HCl 1 each 1 each PRN DAILY PRN 09/08/16 08:00 09/11/16 14:20 DC 09/10/16 09:49 1 EACH Vancomycin HCl 1 gm/Sodium Chloride 250 ml @ 250 mls/hr 1X ONCE 09/03/16 20:00 09/03/16 20:59 DC 09/03/16 20:08 250 MLS/HR Vancomycin HCl/ Dextrose 250 ml @ 250 mls/hr Q24H 09/09/16 09:00 09/10/16 09:46 DC 09/09/16 09:52 250 MLS/HR Vancomycin HCl/ Sodium Chloride (Iv Sodium Chloride 0.9% 250ml) 250 ml @ 167 mls/hr Q24H 09/10/16 10:00 09/11/16 14:20 DC 09/11/16 10:31 167 MLS/HR Vasopressin 40 unit/Dextrose 102 ml @ 6 mls/hr CONT PRN 09/06/16 10:00 09/09/16 10:50 DC 09/07/16 06:00 6 MLS/HR LAB Lab: Laboratory Tests Test 09/15/16 04:00 Sodium Level 143mmol/L (136-145) Potassium Level 3.4mmol/L (3.5-5.1) Chloride Level 103mmol/L (98-107) Carbon Dioxide Level 40mmol/L (21-32) Anion Gap 0 (6-14) Blood Urea Nitrogen 37mg/dL (7-20) Creatinine 1.2mg/dL (0.6-1.0) Estimated GFR (Cockcroft-Gault) 44.7 Glucose Level 142mg/dL (70-99) Calcium Level 7.7mg/dL (8.5-10.1) JAMIN EVANS MD Sep 15, 2016 16:46
== END 2016-09-15 16:43 | disposition short-term general hospital (02) | DRG 356 ==
LOC: ER 13:22 → 1 WEST ICU 15:53 → 4 NORTH 09-09 16:53
PROVIDERS: ADMIT Family Medicine; ATTEND Family Medicine
PROC: 30233L1 Transfusion of Nonautologous Fresh Plasma into Peripheral Vein, Percutaneous Approach (ICD-10-PCS; 2016-09-03)
PROC: 30233N1 Transfusion of Nonautologous Red Blood Cells into Peripheral Vein, Percutaneous Approach (ICD-10-PCS; 2016-09-03)
PROC: 30233R1 Transfusion of Nonautologous Platelets into Peripheral Vein, Percutaneous Approach (ICD-10-PCS; 2016-09-03)
PROC: 30233K1 Transfusion of Nonautologous Frozen Plasma into Peripheral Vein, Percutaneous Approach (ICD-10-PCS; 2016-09-03)
PROC: 0DB68ZX Excision of Stomach, Via Natural or Artificial Opening Endoscopic, Diagnostic (ICD-10-PCS; 2016-09-04)
PROC: 0W3P4ZZ Control Bleeding in Gastrointestinal Tract, Percutaneous Endoscopic Approach (ICD-10-PCS; principal; 2016-09-04 11:30)
PROC: 3E0G8GC Introduction of Other Therapeutic Substance into Upper GI, Via Natural or Artificial Opening Endoscopic (ICD-10-PCS; 2016-09-04 11:30)
PROC: B4141ZZ Fluoroscopy of Superior Mesenteric Artery using Low Osmolar Contrast (ICD-10-PCS; 2016-09-05)
PROC: 04L23DZ Occlusion of Gastric Artery with Intraluminal Device, Percutaneous Approach (ICD-10-PCS; 2016-09-05)
PROC: 5A09557 Assistance with Respiratory Ventilation, Greater than 96 Consecutive Hours, Continuous Positive Airway Pressure (ICD-10-PCS; 2016-09-05)
PROC: 02HV33Z Insertion of Infusion Device into Superior Vena Cava, Percutaneous Approach (ICD-10-PCS; 2016-09-06)
DX: K26.0 Acute duodenal ulcer with hemorrhage (principal); G92 Toxic encephalopathy; J96.22 Acute and chronic respiratory failure with hypercapnia; J96.21 Acute and chronic respiratory failure with hypoxia; D62 Acute posthemorrhagic anemia; E46 Unspecified protein-calorie malnutrition; E87.0 Hyperosmolality and hypernatremia; N17.9 Acute kidney failure, unspecified; Z68.1 Body mass index [BMI] 19.9 or less, adult; K27.9 Peptic ulcer, site unspecified, unspecified as acute or chronic, without hemorrhage or perforation; I95.9 Hypotension, unspecified; E87.6 Hypokalemia; F41.9 Anxiety disorder, unspecified; I12.9 Hypertensive chronic kidney disease with stage 1 through stage 4 chronic kidney disease, or unspecified chronic kidney disease; I25.10 Atherosclerotic heart disease of native coronary artery without angina pectoris; I70.0 Atherosclerosis of aorta; J44.9 Chronic obstructive pulmonary disease, unspecified; N18.9 Chronic kidney disease, unspecified; Z96.649 Presence of unspecified artificial hip joint; S72.322D Displaced transverse fracture of shaft of left femur, subsequent encounter for closed fracture with routine healing; Z82.0 Family history of epilepsy and other diseases of the nervous system; Z87.11 Personal history of peptic ulcer disease; Z87.891 Personal history of nicotine dependence; Z90.710 Acquired absence of both cervix and uterus; Z99.81 Dependence on supplemental oxygen; Z88.8 Allergy status to other drugs, medicaments and biological substances
CPT/HCPCS: 36247; 36248; 36415; 36600; 37244; 71010; 75726; 75774; 80048; 80053; 80069; 80202; 81001; 82274; 82805; 83605; 83690; 83735; 84100; 84132; 84145; 84295; 84484; 85007; 85014; 85018; 85027; 85610; 86850; 86870; 86880; 86900; 86901; 86920; 86922; 86927; 87040; 87324; 87641; 88305; 88342; 93005; 93971; 94660; 94760; 96360; A4215; C1713; C1760; C1769; C1887; C1892; C1894; C9113; G0269; J0171; J0692; J1200; J1265; J1450; J1940; J2020; J2250; J2270; J2370; J2543; J2597; J2704; J2920; J3010; J3370; J3430; J3480; J3490; J7030; J7050; P9016; P9017; P9035; P9046; Q9967; 92610; 99285-25; G0641

== ENCOUNTER → 2016-10-02 | Outpatient (CLI) | payer MEDICARE ==
[2016-09-15 15:00] VITALS: BP 148/85
[~2016-10-02] MED LIST changes: -WARF2.5T PO; +WARF2.5T83 PO
--- NOTE | 2016-10-05 21:13 | SLEEP ---
DATE OF STUDY: 10/02/2016 ____ OBJECTIVE: The patient is a 70-year-old female about whom no history is provided. The order in the chart simply says "EEG". DESCRIPTION: This is a digital study. Electrodes are placed according to the international 10-20 system. Bipolar and referential montages are available. Activation procedures typically include hyperventilation and intermittent photic stimulation. INTERPRETATION: The waking background consists of 4-6 Hz, 50-100 microvolt activity. There is no reactivity. There are no abnormalities of intermittent photic stimulation. The patient was unable to perform hyperventilation. IMPRESSION: This electroencephalogram with the patient in an obtunded state is abnormal because of a moderate, diffuse disturbance of cerebral activity consistent with any of a variety of toxic and metabolic encephalopathies. No epileptic abnormality is observed. Thank you for letting us help with the patient's care. JOI CORRALES MD DR: DEVIN/marni JOB#: [id number] / [id number] [facility]
== END | disposition home or self-care (01) ==
LOC: RT 12:54
PROVIDERS: ATTEND Family Medicine
DX: G47.30 Sleep apnea, unspecified (principal)
CPT/HCPCS: 95816

== ENCOUNTER 2017-01-15 18:09 | Emergency (ER) | payer MEDICARE ==
[~2017-01-15 18:09] MED LIST changes: -ALBU8.5H5; +ALBU8.5H8; -ASPI325T4 PO; +ASPI325T8 PO; +CEFP100T PO; -HYDR-2666 PO; +HYDR-2758 PO; -LEVO500T38 PO; +LEVO500T59 PO
[2017-01-15 18:37] LABS: BASO % 1 % (0-3); EOS % 4 % (0-3); HEMOGLOBIN 9.4 g/dL (12.0-15.5); LYMPH # 0.9 x10^3/uL (1.0-4.8); LYMPH % 15 % (24-48); MEAN CORPUSCULAR HEMOGLOBIN 28 pg (25-35); MEAN CORPUSCULAR HGB CONC 31 g/dL (31-37); MEAN CORPUSCULAR VOLUME 91 fL (79-100); MONO % 10 % (0-9); NEUT % 70 % (31-73); PLATELET COUNT 181 x10^3/uL (140-400); RED CELL DISTRIBUTION WIDTH 15.5 % (11.5-14.5); WHITE BLOOD COUNT 6.1 x10^3/uL (4.0-11.0)
[2017-01-15 18:52] LABS: CALCIUM 8.3 mg/dL (8.5-10.1); CREATININE 0.9 mg/dL (0.6-1.0); GFR 62.1; POTASSIUM 4.1 mmol/L (3.5-5.1)
[2017-01-15 18:55] LABS: BILIRUBIN,URINE NEGATIVE (NEG); GLUCOSE,URINE NEGATIVE (NEG); NITRITE,URINE NEGATIVE (NEG); PH,URINE 7.5; PROTEIN,URINE NEGATIVE (NEG-TRACE); UROBILINOGEN,URINE 0.2 mg/dL (0.2 mg/dL)
[2017-01-15 18:57] LABS: ALBUMIN 2.9 g/dL (3.4-5.0); ALBUMIN/GLOBULIN RATIO 0.7 (1.0-1.7); TOTAL BILIRUBIN 0.2 mg/dL (0.2-1.0); TOTAL PROTEIN 6.9 g/dL (6.4-8.2)
[2017-01-15 19:22] LABS: BACTERIA,URINE FEW /HPF (0-FEW); WBC,URINE 20-40 /HPF (0-4)
[2017-01-15 19:23] LABS: SQUAMOUS EPITHELIAL CELL,UR OCC /LPF
[2017-01-15 19:41] VITALS: BP 133/86
[2017-01-15] MEDS ORDERED: CEPH-264 PO (19:46)
[2017-01-15] MEDS ORDERED: CEPHALEXIN 250 MG CAPSULE. PO ONE (20:00)
--- NOTE | 2017-01-15 21:45 | ED.ADGEN ---
Past Medical History Past Medical History: Anxiety, COPD, Depression, Hypertension, Renal Disease Additional Past Medical Histor: back pain Past Surgical History: Hysterectomy Additional Past Surgical Histo: l hip Alcohol Use: None Drug Use: None Adult General Chief Complaint Chief Complaint: SHORTNESS OF BREATH HPI HPI Patient is a 71 year old woman, history of dementia, COPD on supple oxygen of 2 L at baseline, who is on hospice due to her severe COPD, who presents emergency department via EMS with report of shortness breath. Patient is a very limited historian, is complaining of shortness of breath but states she is feeling better after receiving a breathing treatment via EMS. Oxygen saturation noted to be 89-93% on 2 L nasal cannula, which is patient's baseline per report. Patient denies any chest pain, any coughing, any fevers or chills, or any other complaints at this time. No family is present with palpation at this time, it is unclear the patient's hospice service. Nursing did attempt to contact patient's family upon patient arrival for additional information. Review of Systems Review of Systems Constitutional: Denies fever or chills. [] Eyes: Denies change in visual acuity. [] HENT: Denies nasal congestion or sore throat. [] Respiratory: Denies cough, complaining of shortness of breath, improved at this time after receiving a treatment en route to ED. Cardiovascular: Denies chest pain or edema. [] GI: Denies abdominal pain, nausea, vomiting, bloody stools or diarrhea. [] : Denies dysuria. [] Musculoskeletal: Denies back pain or joint pain. [] Integument: Denies rash. [] Neurologic: Denies headache, focal weakness or sensory changes. [] Endocrine: Denies polyuria or polydipsia. [] Lymphatic: Denies swollen glands. [] Psychiatric: Denies depression or anxiety. [] Current Medications Current Medications Current Medications Medications (Trade) Dose Ordered Sig/Chrissie Start Time Stop Time Status Last Admin Dose Admin Cephalexin HCl (Keflex) 500 mg 1X ONCE 01/15/17 20:00 01/15/17 20:01 DC 01/15/17 19:48 500 MG Allergies Allergies Allergies Coded Allergies Type Severity Reaction Last Updated Verified amlodipine Adverse Reaction Intermediate Swelling 10/06/16 Yes Physical Exam Physical Exam Constitutional: Well developed, cachectic, no acute distress, chronically ill in appearance. Nasal cannula in place. [] HENT: Normocephalic, atraumatic, bilateral external ears normal, oropharynx moist, no oral exudates, nose normal. [] Eyes: PERRLA, EOMI, conjunctiva normal, no discharge. [] Neck: Normal range of motion, no tenderness, supple, no stridor. [] Cardiovascular:Heart rate regular rhythm, no murmur, S1, S2, rubs or gallops. [] Lungs & Thorax: Diminished breath sounds throughout, no walker or rales. A few scattered wheezes noted. No chest wall crepitus or tenderness. Abdomen: Bowel sounds normal, soft, no tenderness, no rebound, rigidity, no guarding, no masses, no pulsatile masses. [] Skin: Warm, dry, no erythema, no rash. [] Back: No tenderness, no CVA tenderness. [] Extremities: No tenderness, no cyanosis, no clubbing, ROM intact, no edema. Muscle wasting noted, negative Homans sign. [] Neurologic: Alert and oriented X 3, normal motor function, normal sensory function, no focal deficits noted. [] Psychologic: Affect normal, judgement normal, mood normal. [] Current Patient Data Vital Signs Vital Signs Date Time Temp Pulse Resp B/P (MAP) Pulse Ox O2 Delivery O2 Flow Rate FiO2 01/15/17 19:41 110 24 133/86 (102) 91 Nasal Cannula 3.0 01/15/17 18:13 99.2 99.2 Lab Values Laboratory Tests Test 01/15/17 18:25 01/15/17 18:45 White Blood Count 6.1 x10^3/uL (4.0-11.0) Red Blood Count 3.30 x10^6/uL (3.50-5.40) L Hemoglobin 9.4 g/dL (12.0-15.5) L Hematocrit 30.0 % (36.0-47.0) L Mean Corpuscular Volume 91 fL (79-100) Mean Corpuscular Hemoglobin 28 pg (25-35) Mean Corpuscular Hemoglobin Concent 31 g/dL (31-37) Red Cell Distribution Width 15.5 % (11.5-14.5) H Platelet Count 181 x10^3/uL (140-400) Neutrophils (%) (Auto) 70 % (31-73) Lymphocytes (%) (Auto) 15 % (24-48) L Monocytes (%) (Auto) 10 % (0-9) H Eosinophils (%) (Auto) 4 % (0-3) H Basophils (%) (Auto) 1 % (0-3) Neutrophils # (Auto) 4.3 x10^3uL (1.8-7.7) Lymphocytes # (Auto) 0.9 x10^3/uL (1.0-4.8) L Monocytes # (Auto) 0.6 x10^3/uL (0.0-1.1) Eosinophils # (Auto) 0.2 x10^3/uL (0.0-0.7) Basophils # (Auto) 0.0 x10^3/uL (0.0-0.2) Sodium Level 144 mmol/L (136-145) Potassium Level 4.1 mmol/L (3.5-5.1) Chloride Level 104 mmol/L (98-107) Carbon Dioxide Level 38 mmol/L (21-32) H Anion Gap 2 (6-14) L Blood Urea Nitrogen 20 mg/dL (7-20) Creatinine 0.9 mg/dL (0.6-1.0) Estimated GFR (Cockcroft-Gault) 62.1 BUN/Creatinine Ratio 22 (6-20) H Glucose Level 105 mg/dL (70-99) H Calcium Level 8.3 mg/dL (8.5-10.1) L Total Bilirubin 0.2 mg/dL (0.2-1.0) Aspartate Amino Transferase (AST) 16 U/L (15-37) Alanine Aminotransferase (ALT) 16 U/L (14-59) Alkaline Phosphatase 91 U/L (46-116) Total Protein 6.9 g/dL (6.4-8.2) Albumin 2.9 g/dL (3.4-5.0) L Albumin/Globulin Ratio 0.7 (1.0-1.7) L Urine Collection Type U cath Urine Color Yellow Urine Clarity Clear Urine pH 7.5 Urine Specific [place] 1.010 Urine Protein Negative mg/dL (NEG-TRACE) Urine Glucose (UA) Negative mg/dL (NEG) Urine Ketones (Stick) Negative mg/dL (NEG) Urine Blood Trace (NEG) Urine Nitrite Negative (NEG) Urine Bilirubin Negative (NEG) Urine Urobilinogen Dipstick 0.2 mg/dL (0.2 mg/dL) Urine Leukocyte Esterase Large (NEG) Urine RBC 6-10 /HPF (0-2) Urine WBC 20-40 /HPF (0-4) Urine Squamous Epithelial Cells Occ /LPF Urine Bacteria Few /HPF (0-FEW) Laboratory Tests 01/15/17 18:25 Laboratory Tests 01/15/17 18:25 EKG EKG EC: Sinus tachycardia, heart rate 106 bpm, left axis deviation, QTC of 416, MI 120, QRS of 70, moderate baseline artifact noted, no ST elevations or depressions noted, abnormal ECG, does not meet STEMI criteria. As interpreted by me. [] Radiology/Procedures Radiology/Procedures Chest x-ray: One view: Patient with hyperinflation consistent with COPD history , no pneumothorax, no infiltrates or effusions, no soft tissue or bony abnormalities identified. As interpreted by me. [] Course & Med Decision Making Course & Med Decision Making Pertinent Labs and Imaging studies reviewed. (See chart for details) Patient spoke with the patient's son, Jose Antonio, who informed me that the patient uses [facility]. 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 He states his current for 30 minutes on he returned the patient had left via EMS. Patient had been left with a phone, she did call EMS herself, she is at her baseline mental status, unable to relate information to us although she is resting comfortably at this time in the ED. Patient's son confirms the patient does become anxious when she is left alone, and that she is "always complaining of being short of breath". I discussed with patient's son that the patient has not exhibited any concerning findings here, and appears to be at her baseline, he confirms her mentation and her usual oxygen use. X-ray and laboratory studies have resulted, patient was recently treated for urine tract infection, is noted to have WBCs and bacteria in her urine, after discussion will cover with Vinnie. I did speak with the patient's call hospice nurse, who is familiar with the patient, and confirms the patient's mentation and oxygen saturation on supplemental oxygen are baseline patient continues to rest comfortably at this time. Nurse Kisha from [facility] states that they will be able to see the patient tomorrow at home, patient is receive a dose of Keflex in the ED without issue, and patient's son is now en route to pick her up with her supple oxygen to take her home. Patient, son, and hospice nursing staff are in agreement with this plan. Patient discharged home in stable condition with plan to follow-up with hospice. Dragon Disclaimer Dragon Disclaimer This electronic medical record was generated, in whole or in part, using a voice recognition dictation system. Departure Impression: Primary Impression: Anxiety Additional Impressions: Encounter for medical screening examination History of COPD Hospice care Disposition: HOME, SELF-CARE Condition: STABLE Scripts Cephalexin (KEFLEX) 500 Mg Capsule 1 CAP PO BID, #14 CAP Prov: RODERICK LOYD DO 01/15/17 Problem Qualifiers RODERICK LOYD DO Jan 15, 2017 21:45
--- NOTE | 2017-01-16 07:10 | EKG ---
[facility] [address] [place] [id number] Test Date: 2017-01-15 Test Time: 18:30:33 Pat Name: EILEEN WALLACE Department: Room: Gender: F Chief Minister: : 1945 Requested By: RODERICK LOYD Order Number: [id number] Reading MD: Measurements Intervals [place] Rate: 106 P: 90 FL: 120 QRS: -64 QRSD: 70 T: 66 QT: 312 QTc: 416 Interpretive Statements SINUS TACHYCARDIA ATRIAL PREMATURE COMPLEX(ES) ABNORMAL LEFT AXIS DEVIATION T ABNORMALITY IN HIGH LATERAL LEADS RI6.01 Unconfirmed report No previous ECG available for comparison
--- NOTE | 2017-01-16 09:23 | RAD ---
AP portable chest radiograph 01/15/2017 Clinical History: Shortness of breath for 2 days. COPD. Hypertension. An AP portable erect digital radiograph of the chest was obtained. Comparison study is dated 12/28/2016. The cardiac silhouette is normal in size. Atherosclerotic calcification of the thoracic aorta is seen. The thoracic aorta is mildly tortuous. Emphysematous changes are seen involving both lungs. No acute pulmonary infiltrate is noted. No pneumothorax or pleural effusion is seen. The osseous structures are unchanged. Impression: No acute abnormality is seen.
== END 2017-01-15 20:18 | disposition home or self-care (01) ==
LOC: ER 18:09
DX: R06.02 Shortness of breath (principal); F41.9 Anxiety disorder, unspecified; J44.9 Chronic obstructive pulmonary disease, unspecified; F32.9 Major depressive disorder, single episode, unspecified; I12.9 Hypertensive chronic kidney disease with stage 1 through stage 4 chronic kidney disease, or unspecified chronic kidney disease; N18.9 Chronic kidney disease, unspecified; F03.90 Unspecified dementia, unspecified severity, without behavioral disturbance, psychotic disturbance, mood disturbance, and anxiety; Z90.710 Acquired absence of both cervix and uterus; Z51.5 Encounter for palliative care; Z99.81 Dependence on supplemental oxygen; Z88.8 Allergy status to other drugs, medicaments and biological substances
CPT/HCPCS: 36415; 71010; 80053; 81001; 85025; 87086; 93005; 99285; P9612